=== PATIENT | female | born 1935 | race Caucasian/White ===

== ENCOUNTER → 2018-01-26 15:26 | Outpatient (CLI) | payer MEDICARE, SELFPAY | PROVIDERS: Visit Provider Physician Assistant Surgical | DX: J02.9 Acute pharyngitis, unspecified (principal) | CPT/HCPCS: 87081 ==

== ENCOUNTER → 2018-02-09 16:49 | Outpatient (CLI) | payer MEDICARE, SELFPAY ==
[2018-02-09 17:40] LABS: Bacteria 0 SEEN /hpf (None Seen); Mucous, Urine 0 SEEN /hpf (<or=2+); Red Blood Cells-Urine 0 SEEN /hpf (0-5); Squamous Epithelial Cells - UA 0 SEEN /hpf (5-10)
[2018-02-09 19:09] LABS: Color, Urine Yellow (Yellow); Glucose, Dipstick NEGATIVE (Normal); Ketone-Dipstick Negative (Negative); Urine Bilirubin Dipstick 1 mg/dL (Negative); Urine Clarity Clear (Clear)
[2018-02-09 19:10] LABS: Leukocyte Esterase-Dipstick 25 /ul (Negative); Nitrite-Dipstick Positive (Negative); Occult Blood-Urine 10 /ul (Negative); Protein-Dipstick 15 mg/dl (Negative); Urine Urobilinogen 1 mg/dl (Normal); Urine pH 6.5 (5.0 - 8.0)
[2018-02-09 19:11] LABS: White Blood Cells 0-5 SEEN /hpf (0-5)
== END ==
PROVIDERS: Family Provider Nurse Practitioner; PCP Nurse Practitioner; Visit Provider Physician Assistant Surgical
DX: N39.0 Urinary tract infection, site not specified (principal)
CPT/HCPCS: 81001; 87086; 87088

== ENCOUNTER → 2018-03-31 15:18 | Outpatient (CLI) | payer MEDICARE, SELFPAY ==
[2018-03-31 16:08] LABS: Bacteria 0 SEEN /hpf (None Seen); Mucous, Urine 0 SEEN /hpf (<or=2+)
[2018-03-31 16:28] LABS: Color, Urine Yellow (Yellow); Glucose, Dipstick Normal (Normal); Ketone-Dipstick Negative (Negative); Leukocyte Esterase-Dipstick 25 /ul (Negative); Nitrite-Dipstick Negative (Negative); Occult Blood-Urine Negative /ul (Negative); Protein-Dipstick Negative (Negative); Specific Gravity, Urine 1.005 (1.002-1.030); Urine Bilirubin Dipstick Negative (Negative); Urine Clarity Clear (Clear); Urine Urobilinogen Normal (Normal)
[2018-03-31 16:52] LABS: Squamous Epithelial Cells - UA 0-5 SEEN /hpf (5-10)
[2018-03-31 16:53] LABS: Transitional Epithelial - Ur 0-5 SEEN /hpf (0-5)
[2018-03-31 16:54] LABS: Red Blood Cells-Urine 0-5 SEEN /hpf (0-5)
[2018-03-31 16:55] LABS: White Blood Cells 0-5 SEEN /hpf (0-5)
== END ==
PROVIDERS: Family Provider Nurse Practitioner; PCP Nurse Practitioner; Visit Provider Physician Assistant Medical
DX: R35.0 Frequency of micturition (principal)
CPT/HCPCS: 81001; 87086; 87088

== ENCOUNTER → 2018-09-11 12:08 | Outpatient (CLI) | payer MEDICARE, SELFPAY ==
--- NOTE | 2018-09-11 12:14 | BD_ITS ---
STUDY: DUAL ENERGY X-RAY ABSORPTIOMETRY / DXA REASON FOR EXAM: Female, 82 years old. The patient is postmenopausal. Loss of height. TECHNIQUE: Bone Mineral Density (BMD) measurements of lumbar spine and bilateral hips were obtained. COMPARISON: Comparison is made with prior study dated September 06, 2016. FINDINGS: Lumbar Spine (L1-L4): g/cm2 (1.110) / T-score (-0.5) / Z-score (1.4) Findings are suggestive of with a low fracture risk. Left Femur Total: g/cm2 (0.948) / T-score (-0.5) / Z-score (1.7) Left Femoral Neck: g/cm2 (0.877) / T-score (-1.2) / Z-score (1.1) Right Femur Total: g/cm2 (0.915) / T-score (-0.7) / Z-score (1.4) Right Femoral Neck: g/cm2 (0.860) / T-score (-1.3) / Z-score (0.9) The T-Scores on the most recent prior examination were: Lumbar Spine (L1-L4): There has been worsening of bone density since the previous examination. Left Femur Total: which represents a worsening of 2.7%. Right Femur Total: which represents a worsening of 6.3%. BD/Dexa Bone Density Study IMPRESSION: The patient is considered osteopenic as outlined below according to World [employer] Organization (WHO) criteria with a moderate fracture risk. There has been worsening of bone density since the previous examination. Reference Information: The T-score is the number of standard deviations above or below the standard which is normal for young adults at their peak bone mineral density. The World Health Organization (WHO) interprets the T-scores as follows: Above -1 Normal bone density Between -1 and -2.5 Osteopenia Equal to / or below -2.5 Osteoporosis As a practical clinical guideline, osteopenia may be graded as follows: Mild -1 through -1.5 Moderate -1.6 through -2.0 Severe -2.1 through -2.4 The Z-score is the number of standard deviations above or below age-matched controls. A Z-score of less than -1.5 would be considered abnormal. References: 1. NIH Osteoporosis and Related Bone Diseases http://www.osteo.org 2. International Society for Clinical Densitometry http://www.iscd.org 3. National Osteoporosis Foundation http://www.nof.org Electronically Signed: Rogelio Joseph MD at 15:42 EST Tel [phone], Service support ,
--- OUTSIDE RECORDS SUMMARY | 2018-10-28 14:02 | XMS RPT_ITS | Continuity of Care Document ---
:1935 Author Organization [facility] Address [address] [facility] [address] [place] [address] Phone Care Team Providers Name Role Phone Nguyen Santana CNP Unavailable Karey Beckman Unavailable Dr. Ren Benavides Unavailable Dayna Byrne Unavailable Ced Rodrigues MD Unavailable Nusrat ALEXANDRE, Romel Spencer Unavailable Dr. Jerry Xie Unavailable Sonia Byrd Unavailable Edouard , Home [facility] Unavailable Jose Alejandro Gonzalez MD Unavailable Deisy Mitchell Unavailable Unavailable Renetta Gamboa Unavailable Unavailable Jo Gaitan LPN Unavailable Unavailable Shelby Padilla Unavailable Unavailable Zoraida Stewart Unavailable Unavailable Unavailable Unavailable Problems Name Dates Details Allergic rhinitis (J30.9, 477.9) Status: Active Anxiety (F41.9, 300.00) Comments: Generic for zoloft Sertraline. Will encourage exercise Status: Active Aortic atherosclerosis (I70.0, 440.0) Comments: on ASA 81 daily Status: Active BMI 27.0-27.9,adult (Z68.27, V85.23) Status: Active BMI 28.0-28.9,adult (Z68.28, V85.24) Status: Active BMI 28.0-28.9,adult (Z68.28, V85.24) Status: Active BMI 28.0-28.9,adult (Z68.28, V85.24) Status: Active Bradycardia (R00.1, 427.89) Comments: remains Betablocker Status: Active Cough (R05, 786.2) Status: Active Current nonsmoker (Renamed from Current non-smoker) (Z78.9, V49.89) Status: Active Deliveries (Parity) Comments: 2 Status: Active Diarrhea (R19.7, 787.91) Status: Active Encounter for Medicare annual wellness exam (Z00.00, V70.0) Status: Active Encounter for screening mammogram for breast cancer (Renamed from Encounter for screening mammogram for malignant neoplasm of breast) (Z12.31, V76.12) Status: Active Epigastric discomfort (R10.13, 789.06) Comments: uses famotidine prn Status: Active Fatty liver (K76.0, 571.8) Status: Active History of colon polyps (Z86.010, V12.72) Comments: scope 08-14 Status: Active Hot flashes (R23.2, 782.62) Comments: on premarin cream for dryness Status: Active Hypercholesterolemia (E78.00, 272.0) Comments: on colestipol lipid borderline Status: Active Hypertension (I10, 401.9) Comments: Sees Nusrat in September or October, occas PACs-no new changes on EKG, stable on losartan, hctz, and norvasc Status: Active IBS (irritable bowel syndrome) (K58.9, 564.1) Comments: stable, with diarrhea with abd cramping after a meal although not always,tried hyoscyamine with some improvement but also stopped dairy but still uses immodium daily, tried creon with no benefit, tri ed Xifaxan-too expensive.stop colesid not working Status: Active Internal hemorrhoid (K64.8, 455.0) Comments: from colonoscopy from [facility] 08-26-13 Status: Active Keratosis, 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, 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) Comments: face and rt leg Status: Active Knee pain, right (M25.561, 719.46) Comments: to ER on 06-06 with knee pain found to have meniscal tear Status: Active Left foot pain (M79.672, 729.5) Comments: observe for now Status: Active Liver cyst (K76.89, 573.8) Comments: repeat US Jun 2017 Status: Active Mitral valve regurgitation (I34.0, 424.0) Comments: echo 07-12, uses amoxicillin for mitral valve for dental procedures Status: Active Need for prophylactic vaccination and inoculation against influenza (Renamed from Need for immunization against influenza) (Z23, V04.81) Status: Active Need for prophylactic vaccination and inoculation against influenza (Renamed from Need for immunization against influenza) (Z23, V04.81) Status: Active Need for prophylactic vaccination and inoculation against influenza (Renamed from Need for immunization against influenza) (Z23, V04.81) Status: Active Need for zoster vaccination (Z23, V04.89) Comments: script given to get Shingrex vaccine, not given here Status: Active Nonsmoker (Z78.9, V49.89) Status: Active Osteoarthritis (M19.90, 715.90) Comments: stable Status: Active Osteoporosis (M81.0, 733.00) Comments: bd 1114 right now mild osteopenia. weight bearing exercises. on calcium with vit d. Status: Active Pain, joint, shoulder region, right (M25.511, 719.41) Comments: pt has done nsaids, exercises, injections and PT and still alot pain and never back to where should be. MRI done and went to [facility]. mobic bother stomach so using tylenol take edge off. Status: Active Postmenopausal (Renamed from Postmenopausal status) (Z78.0, V49.81) Status: Active Pregnancies () Comments: 2 Status: Active Prophylactic antibiotic for dental procedure indicated due to prior joint replacement (Z79.2, V58.62) Status: Active Right flank pain (R10.9, 789.09) Comments: ? 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 wheezing is better. echo, stress tests - 11, repeating per [employer] stress test on March 24 Status: Active Sore throat (J02.9, 462) Status: Active Stress incontinence, female (N39.3, 625.6) Comments: kegels, mild not bad enough to do anything Status: Active Tendinitis of left shoulder (M75.82, 726.10) Status: Active Unspecified abnormal involuntary movements (R25.9, 781.0) Comments: saw jose g orozco breathing issue. side effects to meds Status: Active Unspecified Diagnosis Status: Active Urinary incontinence (R32, 788.30) Comments: interested in Kiki piña given-is going to wait until her IBS is under control. Status: Active Vaginal atrophy (N95.2, 627.3) Comments: premarin cream prn Status: Active Medications Name Dates Details ADVAIR HFA, 115-21MCG/ACT (Inhalation Aerosol) Active 2 puffs bid (115-21 MCG/ACT) ASPIRIN ADULT LOW DOSE, 81MG (Oral Tablet Delayed Release) 1 (one) Tablet DR daily for 30 days Refills: 0 Ordered:14-Mar-2016 Nguyen Santana CNP, CNP, Mary E Start : 14-Mar-2016 Active ASTELIN, 137MCG/SPRAY (Nasal Solution) 1-2 sprays each nostril qd (137 MCG/SPRAY) Active CALCIUM + D, [id number]-FBSA (Oral Tablet) 1 qd for 0 days Refills: 0 Ordered:24-Jun-2009 Angelique Miller CENTRUM SILVER (Oral Tablet) 1 qd for 0 days Refills: 0 Ordered:24-Jun-2009 Angelique Miller HydroCHLOROthiazide 25 MG Oral Tablet 1 (one) Tablet QD for 0 days Quantity: 30 {Tablet} Refills: 7 Ordered:15-Sep-2017 Nguyen Santana CNP, CNP, Mary E Start : 15-Sep-2017 Active Losartan Potassium 50 MG Oral Tablet 1 (one) Tablet daily for 0 days Quantity: 30 {Tablet} Refills: 11 Ordered:11-Jun-2018 Max GIVENS, Nguyen Dover CNP Start : 11-Jun-2018 Active Norvasc 2.5 MG Oral Tablet 1 Tablet daily for 0 days Quantity: 30 {Tablet} Refills: 3 Ordered:02-May-2018 Max GIVENS, Nguyen Najera CNP, Nguyen Briones Start : 02-May-2018 Active Premarin 0.625 MG/GM Vaginal Cream uad Cream twice a week for 0 days Quantity: 1 {Tube} Refills: 6 Ordered:23-Aug-2016 Max GIVENS, Nguyen Najera CNP, Nguyen Briones Start : 23-Aug-2016 Active Propranolol HCl 40 MG Oral Tablet 1 (one) Milligram Milligram bid for 0 days Quantity: 60 {Milligram} Refills: 3 Ordered:02-Jul-2018 Deisy Mitchell Start : 11-Jun-2018 Active Zoloft 100 MG Oral Tablet 1 (one) Tablet qd for 0 days Quantity: 30 {Tablet} Refills: 6 Ordered:02-May-2018 Max GIVENS, Nguyen Najera CNP, Nguyen Briones Start : 02-May-2018 Active ALIGN, 4MG (Oral Capsule) 1 Capsule qd for 0 days Quantity: 30 {Capsule} Refills: 0 Ordered:28-Feb-2012 PAM Sanz Start : 17-Jan-2012 End : 28-Feb-2012 Inactive Amoxicillin 500 MG Oral Tablet uad Tablet Tablet 2 grams one hour prior to procedure for 0 days Quantity: 4 {Tablet} Refills: 0 Ordered:08-Mar-2017 Shelby Padilla Start : 29-Sep-2015 End : 08-Mar-2017 Inactive Amoxicillin-Pot Clavulanate 875-125 MG Oral Tablet 1 (one) Tablet PO BID for 14 days Quantity: 28 {Tablet} Refills: 0 Ordered:09-Nov-2017 Zoraida Stewart Start : 09-Nov-2017 End : 23-Nov-2017 Inactive Comments:Take with food ASPIRIN, 81MG (Oral Tablet) 1 QD for 0 days Refills: 0 Ordered:05-May-2010 Yesica Sanchez LPNactive ASTELIN, 137MCG/SPRAY (Nasal Solution) 2 sprays each nostril qd (137 MCG/SPRAY) Inactive ATIVAN, 0.5MG (Oral Tablet) 1 (one) Tablet Tablet daily prn up to three times a week for 0 days Quantity: 20 {Tablet} Refills: 0 Ordered:15-Sep-2015 Shelby Padilla Start : 14-Jan-2014 End : 15-Sep-2015 Inactive Comments:twenty AUGMENTIN, 875-125MG (Oral Tablet) 1 Tablet bid for 10 days Quantity: 20 {Tablet} Refills: 0 Ordered:09-Dec-2010 Taryn De Guzman RN Start : 09-Dec-2010 End : 19-Dec-2010 Inactive BIAXIN XL PAC, 500MG (Oral Tablet Extended Release 24 Hour) 2 (two) Tablet ER 24HR daily for 14 days Quantity: 28 {Tablet_ER_24HR} Refills: 0 Ordered:10-Jan-2012 Gin Sanchez LPN Start : 28-Dec-2011 End : 10-Jan-2012 Inactive BIAXIN XL, 500MG (Oral Tablet Extended Release 24 Hour) 2 (two) Tablet ER 24HR qd for 0 days Quantity: 20 {Tablet_ER_24HR} Refills: 0 Ordered:05-May-2010 Gin Sanchez LPN Start : 22-Mar-2010 Inactive CHERATUSSIN AC, 100-10MG/5ML (Oral Solution) 1 (one) Teaspoon Teaspoon qhs for 0 days Quantity: 6 {Ounce} Refills: 0 Ordered:19-Mar-2015 PAM Sanz Start : 01-Sep-2014 End : 19-Mar-2015 Inactive Cipro 500 MG Oral Tablet 1 (one) Tablet bid for 3 days Quantity: 6 {Tablet} Refills: 0 Ordered:08-Nov-2016 Nguyen Santana CNP, CNP, Mary E Start : 08-Nov-2016 End : 11-Nov-2016 Inactive CLARITIN REDITABS, 5MG (Oral Tablet Dispersible) 1 Tablet Disperse daily for 0 days Quantity: 30 {Tablet_Disperse} Refills: 0 Ordered:17-Jan-2012 PAM Sanz Start : 26-Dec-2011 End : 17-Jan-2012 Inactive Colestipol HCl 1 GM Oral Tablet 1 (one) Tablet Tablet bid for 0 days Quantity: 60 {Tablet} Refills: 3 Ordered:11-Jun-2018 Max GIVENS, Nguyen Najera CNP, Nguyen Briones Start : 15-Sep-2017 End : 11-Jun-2018 Inactive FOSAMAX, 70MG (Oral Tablet) 1 Tablet weekly for 0 days Quantity: 4 {Tablet} Refills: 6 Ordered:23-Jun-2011 PAM Sanz Start : 15-Dec-2010 End : 23-Jun-2011 Inactive GENTAMICIN SULFATE, 0.3% (Ophthalmic Solution) 2 (two) Solution each eye qid for 7 days for 0 days Quantity: 1 {Solution} Refills: 0 Ordered:23-Jun-2011 PAM Sanz Start : 03-Mar-2011 End : 23-Jun-2011 Inactive Hyoscyamine Sulfate 0.125 MG Oral Tablet 1 (one) Tablet Tablet q4hrs prn for 0 days Quantity: 30 {Tablet} Refills: 0 Ordered:11-Jun-2018 Max GIVENS, Nguyen Dover CNP Start : 11-Jun-2018 End : 11-Jun-2018 Inactive INDERAL LA, 60MG (Oral Capsule Extended Release 24 Hour) 1 Capsule ER 24HR daily for tremor for 0 days Quantity: 30 {Capsule_ER_24HR} Refills: 1 Ordered:31-Aug-2010 PAM Sanz Start : 29-Jul-2010 End : 31-Aug-2010 Inactive INDERAL, 10MG (Oral Tablet) 1 or 2 q 8 hours prn (10 MG) Inactive Comments:Dr. Vides LAMISIL, 250MG (Oral Tablet) Tablet QD for 0 days Quantity: 34 {Tablet} Refills: 2 Ordered:01-Jan-2010 PAM Sanz Start : 09-Dec-2008 Inactive Comments:12 weeks only LEVAQUIN, 500MG (Oral Tablet) 1 Tablet daily for 7 days Quantity: 7 {Tablet} Refills: 0 Ordered:03-Jan-2012 Max GIVENS, Nguyen Najera CNP, Nguyen Briones Start : 03-Jan-2012 End : 10-Jan-2012 Inactive LEVOFLOXACIN, 500MG (Oral Tablet) 1 (one) Tablet daily for 7 days Quantity: 7 {Tablet} Refills: 0 Ordered:01-Sep-2014 Max GIVENS, Nguyen Najera CNP, Nguyen Briones Start : 01-Sep-2014 End : 08-Sep-2014 Inactive LORATADINE, 10MG (Oral Tablet) 1 prn for 0 days Refills: 0 Ordered:29-May-2008 PAM Sanz End : 29-May-2008 Inactive Macrobid 100 MG Oral Capsule 1 (one) Capsule bid for 7 days Quantity: 14 {Capsule} Refills: 0 Ordered:08-Nov-2016 Max GIVENS, Nguyen Dover CNP Start : 08-Nov-2016 End : 08-Nov-2016 Inactive Comments:[facility] Meloxicam 7.5 MG Oral Tablet 1 (one) Tablet daily as directed for 0 days Quantity: 30 {Tablet} Refills: 0 Ordered:19-Dec-2017 Long CREPING MACHINE OPERATOR, Ariana L Start : 15-Sep-2017 End : 19-Dec-2017 Inactive PATANOL, 0.1% (Ophthalmic Solution) 1 Solution each eye bid. for 0 days Quantity: 1 {Solution} Refills: 0 Ordered:23-Jun-2011 PAM Sanz Start : 10-Mar-2011 End : 23-Jun-2011 Inactive PENICILLIN V POTASSIUM, 250MG (Oral Tablet) 1 (one) Tablet tID for 10 days Quantity: 30 {Tablet} Refills: 0 Ordered:07-Apr-2008 Max GIVENS, Nguyen Dover CNP Start : 07-Apr-2008 End : 21-Apr-2008 Inactive PRAVACHOL, 40MG (Oral Tablet) 1 Tablet daily for 0 days Quantity: 90 {Tablet} Refills: 3 Ordered:07-Mar-2013 Shelby Padilla Start : 29-May-2012 End : 07-Mar-2013 Inactive PREDNISONE, 10MG (Oral Tablet) 3 pills Tablet for 3 days 2 for 3 days 1 for 3 days with food for 0 days Quantity: 18 {Tablet} Refills: 0 Ordered:19-Mar-2015 PAM Sanz Start : 01-Sep-2014 End : 19-Mar-2015 Inactive Comments:with food PREMARIN, 0.3MG (Oral Tablet) 1 Tablet QD for 0 days Refills: 0 Ordered:07-Jan-2009 PAM Sanz Start : 07-Jan-2009 End : 29-Apr-2008 Inactive Proventil HFA 108 (90 Base) MCG/ACT Inhalation Aerosol Solution 1 Aerosol Soln 1-2 puffs every 6 hours prn for 0 days Quantity: 1 {Aerosol_Soln} Refills: 3 Ordered:19-Dec-2017 Sandoval ALBA Ariana L Start : 23-Aug-2016 End : 19-Dec-2017 Inactive RHINOCORT AQUA, 32MCG/ACT (Nasal Suspension) 2sprays each nostril Suspension QD for 0 days Quantity: 1 {Suspension} Refills: 3 Ordered:28-Feb-2012 PAM Sanz Start : 17-Jun-2010 End : 28-Feb-2012 Inactive SYMBICORT, 160-4.5MCG/ACT (Inhalation Aerosol) 1 puff Aerosol bid for 0 days Quantity: 1 {Aerosol} Refills: 6 Ordered:28-Feb-2012 PAM Sanz Start : 26-Dec-2011 End : 28-Feb-2012 Inactive TESSALON PERLES, 100MG (Oral Capsule) 1 Capsule bid prn cough for 0 days Quantity: 30 {Capsule} Refills: 1 Ordered:19-Mar-2015 PAM Sanz Start : 01-Sep-2014 End : 19-Mar-2015 Inactive TOPICORT, 0.25% (External Cream) 1 Cream bid for 0 days Quantity: 1 {Cream} Refills: 0 Ordered:06-Dec-2010 PAM Sanz Start : 05-May-2010 End : 06-Dec-2010 Inactive Xifaxan 550 MG Oral Tablet 1 (one) Tablet tid for 7 days Quantity: 21 {Tablet} Refills: 0 Ordered:12-Jul-2018 Max GIVENS, Nguyen Najera CNP, Mary Start : 12-Jul-2018 End : 19-Jul-2018 Inactive XYZAL, 5MG (Oral Tablet) Tablet QD for 0 days Quantity: 30 {Tablet} Refills: 0 Ordered:29-Apr-2008 PAM Sanz Start : 29-Apr-2008 End : 29-May-2008 Inactive Zithromax Z-Fransisco 250 MG Oral Tablet 1 (one) Tablet TAD for 0 days Quantity: 1 {Package} Refills: 0 Ordered:19-Dec-2017 Long Ariana ALBA Start : 10-Nov-2017 End : 19-Dec-2017 Inactive ZOSTAVAX, 70574ACM/0.65ML (Subcutaneous Solution Reconstituted) 1 For Solution once IM for 0 days Quantity: 1 {For_Solution} Refills: 0 Ordered:31-Aug-2010 PAM Sanz Start : 17-Jun-2010 End : 31-Aug-2010 Inactive GREGORY, 60MG (Oral Tablet) Tablet BID for 0 days Quantity: 60 {Tablet} Refills: 3 Ordered:29-May-2007 PAM Sanz Start : 29-May-2007 End : 29-Nov-2007 Discontinued AMITRIPTYLINE HCL, 25MG (Oral Tablet) Tablet QHS / HS for 0 days Quantity: 30 {Tablet} Refills: 6 Ordered:09-Dec-2008 George Bueno MD Start : 09-Dec-2008 End : 23-Jun-2009 Discontinued CELEXA, 20MG (Oral Tablet) 1 (one) Tablet qd for 0 days Quantity: 30 {Tablet} Refills: 6 Ordered:15-Sep-2015 Geogre Bueno MD Start : 15-Sep-2015 End : 15-Sep-2015 Discontinued Creon 09818 UNIT Oral Capsule Delayed Release Particles 2 (two) Unit Unit with each meal for 0 days Quantity: 36 {Tablet} Refills: 0 Ordered:30-Jul-2018 Deisy Mitchell Start : 02-Jul-2018 End : 30-Jul-2018 Discontinued Comments:samples given Culturelle End : 08-Nov-2016 Discontinued Culturelle Dig[facility] Oral Capsule 1 (one) Capsule Capsule daily for 0 days Quantity: 30 {Capsule} Refills: 0 Ordered:05-Jul-2017 Renetta Gamboa Start : 23-Aug-2016 End : 05-Jul-2017 Discontinued DIOVAN, 160MG (Oral Tablet) 1 Tablet qd for 0 days Quantity: 30 {Tablet} Refills: 6 Ordered:15-Dec-2010 George Bueno MD Start : 15-Dec-2010 End : 15-Dec-2010 Discontinued FOLIC ACID, 400MCG (Oral Tablet) 1 QD for 0 days Refills: 0 Ordered:29-Jan-2007 PAM Sanz End : 29-Jan-2007 Discontinued FUROSEMIDE, 20MG (Oral Tablet) 1 Tablet QD for 0 days Refills: 0 Ordered:29-Jan-2007 George Bueno MD Start : 29-Jan-2007 End : 29-Jan-2007 Discontinued Hyoscyamine Sulfate ER 0.375 MG Oral Tablet Extended Release 12 Hour 1 (one) Tablet Tablet q12hrs prn for IBS and Gi spasms for 0 days Quantity: 60 {Tablet} Refills: 0 Ordered:30-Jul-2018 Deisy Mitchell Start : 11-Jun-2018 End : 30-Jul-2018 Discontinued LISINOPRIL, 20MG (Oral Tablet) 1 Tablet QD for 30 days Quantity: 30 {Tablet} Refills: 6 Ordered:27-May-2010 George Bueno MD Start : 27-May-2010 End : 27-May-2010 Discontinued LISINOPRIL-HCTZ (PO Tab) 20/25 QD for 0 days Refills: 0 Ordered:28-Jun-2006 Taryn De Guzman RN End : 28-Jun-2006 Discontinued MELOXICAM, 7.5MG (Oral Tablet) qd (7.5 MG) End : 14-Mar-2016 Discontinued MOBIC, 7.5MG (Oral Tablet) 1 (one) Tablet Tablet daily for 0 days Quantity: 30 {Tablet} Refills: 2 Ordered:14-Mar-2016 Jo Gaitan LPN Start : 16-Jun-2015 End : 14-Mar-2016 Discontinued PREDNISONE, 20MG (Oral Tablet) 1 Tablet daily for 0 days Quantity: 7 {Tablet} Refills: 0 Ordered:15-Dec-2010 Taryn De Guzman RN Start : 15-Dec-2010 End : 15-Dec-2010 Discontinued PROPRANOLOL HCL, 20MG (Oral Tablet) 1 Tablet tid for 0 days Quantity: 90 {Tablet} Refills: 6 Ordered:28-Feb-2012 George Bueno MD Start : 28-Feb-2012 End : 28-Feb-2012 Discontinued ZETIA, 10MG (Oral Tablet) 1 Tablet Tablet daily for 0 days Quantity: 30 {Tablet} Refills: 6 Ordered:14-Mar-2016 Jo Gaitan LPN Start : 06-Sep-2013 End : 14-Mar-2016 Discontinued ZYRTEC, 10MG (Oral Tablet) 1 Tablet qd for 0 days Quantity: 30 {Tablet} Refills: 6 Ordered:29-Jan-2007 PAM Sanz Start : 29-Jan-2007 End : 29-Nov-2007 Discontinued Allergies and Adverse Reactions Name Dates Details Sulfa Drugs (Allergy) Status: Active Past Medical History Name Dates Details Abdominal bloating (R14.0, 787.3) Status: Inactive as of 19-Dec-2017 Abnormal EKG (R94.31, 794.31) Comments: reveiwed with patient recent tests stress and echo good Status: Inactive as of 29-May-2012 Acute sinusitis, unspecified (J01.90, 461.9) 04-Feb-2010 Comments: if antihistamine not work get atb Status: Inactive as of 18-Feb-2010 Asthma, intrinsic, mild intermittent, with status asthmaticus (J45.22, 493.11) Comments: stable now use advair just in am most time and still good. uses daily occasional sob Status: Inactive as of 19-Dec-2017 BMI 28.0-28.9,adult (Z68.28, V85.24) Status: Inactive as of 19-Dec-2017 BMI 29.0-29.9,adult (Z68.29, V85.25) Status: Inactive as of 14-Jun-2017 Bronchitis (J40, 490) Status: Inactive as of 06-Sep-2013 Bursitis of hip, unspecified laterality (726.5) Comments: stable Status: Inactive as of 29-May-2012 Chest pain (R07.9, 786.59) 29-May-2012 Comments: atypical. had for awhile had echostress 06-09 Status: Inactive as of 29-May-2012 Chronic cough (R05, 786.2) Comments: better see Dr. rodrigues Status: Inactive as of 19-Mar-2015 Decreased lung sounds (R06.89, 786.7) Status: Inactive as of 19-Dec-2017 Dizziness (R42, 780.4) Comments: in past had and with atherosclerosis on cxr check carotids Status: Inactive as of 06-Sep-2013 Dysuria (R30.0, 788.1) 17-Jun-2010 Status: Inactive as of 06-Sep-2013 Fever and chills (R50.9, 780.60) Status: Inactive as of 19-Mar-2015 Flu-like symptoms (R68.89, 780.99) Status: Inactive as of 19-Dec-2017 FOCAL HYPERHIDROSIS, PRIMARY (705.21) Comments: stable Status: Inactive as of 29-May-2012 Headache (R51, 784.0) Status: Inactive as of 29-May-2012 Hypokalemia (E87.6, 276.8) Status: Inactive as of 14-Jan-2014 Joint inflammation (716.90) Comments: injection in past help like one today .right shoulder Status: Inactive as of 19-Mar-2015 Low back pain (M54.5, 724.2) 29-May-2012 Status: Inactive as of 29-May-2012 NEED FOR PROPHYLACTIC VACCINATION AND INOCULATION AGAINST INFLUENZA (V04.81) (Renamed from NEED FOR PROPHYLACTIC VACCINATION AND INOCULATION AGAINST INFLUENZA) (Z23, V04.81) Status: Inactive as of 19-Mar-2015 oncomycosis Status: Inactive as of 23-Jun-2009 Osteopenia (M85.80, 733.90) Status: Inactive as of 29-May-2012 Other ankle sprain (845.09) 29-May-2012 Status: Inactive as of 29-May-2012 Other premature beats (I49.49, 427.69) Comments: some bradycardia. stress and echo good saw Dr. [facility]io. [facility] Status: Inactive as of 19-Mar-2015 Other specified pruritic conditions (L29.8, 698.8) Comments: not now Status: Resolved as of 29-May-2012 Pharyngitis, acute (J02.9, 462) 22-Mar-2010 Comments: think above Status: Inactive as of 27-May-2010 Proteinuria (R80.9, 791.0) Comments: 24 hour good Status: Inactive as of 07-Jul-2011 Rash (R21, 782.1) Status: Inactive as of 27-May-2010 Sciatica (M54.30, 724.3) 29-May-2012 Status: Inactive as of 29-May-2012 Serous conjunctivitis, unspecified laterality (H10.239, 372.01) Comments: will now try patanol for allergies. saline rinses and cold compresses help Status: Inactive as of 06-Sep-2013 Sleep disorder (G47.9, 780.50) Comments: desolving relationship ome upset Status: Inactive as of 06-Sep-2013 Unspecified asthma with (acute) exacerbation (J45.901, 493.92) Comments: better now with inpatient IV atb. pt will be seeing Dr. rodrigues. if not get back to self then consider ct scan. formal PFTS will work with Dr. rodrigues to startreveiwed with patient hospital Status: Inactive as of 19-Mar-2015 Unspecified Diagnosis Status: Inactive as of 06-Sep-2013 Unspecified Diagnosis Status: Inactive as of 19-Mar-2015 Urinary retention (R33.9, 788.20) Status: Inactive as of 29-May-2012 Urinary tract infection (N39.0, 599.0) Status: Resolved as of 29-May-2012 UTI symptoms (R39.9, 788.99) Status: Inactive as of 18-Jul-2017 Viral syndrome (B34.9, 079.99) Status: Inactive as of 06-Sep-2013 Wheezing symptom (R06.2, 786.07) Status: Inactive as of 06-Sep-2013 WWV V73.21 (Renamed from WWV-Bare) Comments: mammo 03-13 Status: Inactive as of 06-Sep-2013 Procedures Procedure Dates Details Bladder Repair 1994 Completed cataracts -- Left eye April 14 Completed Comments: [place] and then right eye done appx 05/29/14 Cholecystectomy (Gall Bladder Removal) Completed Comments: 1995 Colonoscopy Completed Comments: August 2013 Dr. Hernandez Hysterectomy, Total Completed Comments: 1971 Date Value Details 31-Mar-2018 Urgent Care Visit Report Result: Comments: See Note; NOTES: [facility] [address] [place] [address] OFFICE VISIT Date of Service: 03/31/18 MR#: [id number] Acct: [id number] Name: GAYATRI NAQVI Rep #: [id number] : 1935 Provider: RHODA Cisse Age/Sex: 82/F Location: [facility] Status: Signed Intake Vital Signs03/31/18 Height 5 ft 03/31/18 Weight: 140 lb 03/31/18 Body Mass Index (BMI) 27.3 03/31/18 Blood Pressure 120/74 Intake Visit Reasons: Urinary tract infection Chief Complaint: burning with urination Allergies Sulfa (Sulfonamide Antibiotics) Allergy (Verified 03/31/18 08:20) U nknown pravastatin [From Pravachol] Adverse Reaction (Severe, Verified 03/31/18 08:20) myalgias morphine Adverse Reaction (Verified 03/31/18 08:20) Nausea/Vom/Diarrhea Medications Amlodipine [Norvasc ] 2.5 mg PO DAILY 03/04/16 [History Confirmed 03/31/18] Aspirin [Aspirin, Baby] 81 mg PO DAILY@0800 03/04/16 [History Confirmed 03/31/18] Estrogens, Conjugated [Premarin] 0.625 mg PO PRN PRN 03/04/16 [H istory Confirmed 03/31/18] Fluticasone/Salmeterol [Advair Hfa 115-21 Mcg Inhaler] 2 puff INHALATION BID 03/04/16 [History Confirmed 03/31/18] Hydrochlorothiazide [Hctz] 25 mg PO DAILY 03/04/16 [History Confirmed 03/31/18] Losartan Potassium [Cozaar] 100 mg PO DAILY 03/04/16 [History Confirmed 03/31/18] Sertraline HCl [Zoloft] 100 mg PO DAILY 03/04/16 [History Confirmed 03/31/18] azelastine 137 mcg (0. 1 %) nasal spray aerosol INTRANASAL 25 Days #30 01/26/18 [History Confirmed 03/31/18] albuterol sulfate HFA 90 mcg/actuation aerosol inhaler 2 puff INHALATION Q6H PRN 02/20/18 [History Confirmed 8] calcium carbonate-vitamin D3 600 mg (1,500 mg)-800 unit tablet 1 tab PO QDAY 02/20/18 [History Confirmed 03/31/18] multivit with min-folic acid-lutein 400 mcg-250 mcg chewable tablet 1 tab PO QDAY ta b 02/20/18 [History Confirmed 03/31/18] colestipol 1 gram tablet 1 g PO BID tab 02/28/18 [History Confirmed 03/31/18] nitrofurantoin monohydrate/macrocrystals 100 mg capsule 100 mg PO Q12H 7 Days #14 ca p 03/31/18 [Rx Confirmed 03/31/18] PFSH Medical History Sinus bradycardia (Acute) Nonrheumatic mitral valve regurgitation (Chronic) Premature atrial cont ractions (Acute) Cystitis (Acute) Pharyngitis, acute (Acute) Hyperlipemia (Chronic) Benign hypertension (Chronic) Anxiety (Acute) Diarrhea (Acute) Essential tremor (Acute) Fatigue (Acute) Incontinence ( Acute) Knee pain (Acute) Limb weakness (Acute) SOB (shortness of breath) (Acute) Shoulder pain (Acute) Asthma (Chronic) IBS (irritable bowel syndrome) (Chronic) Osteoarthritis (Chronic) Osteoporosis (Ch ronic) Surgical History Hx of bladder repair surgery (Resolved) Hx of cholecystectomy (Resolved) Hx of hysterectomy (Resolved) Family History Father CAD (coronary artery disease) Hx of CABG Other Heart disease Hypertension Social History Smoking Status: Never smoker alcohol intake: current details: occa sional HPI HPI Chief Complaint: burning with urination Details: GAYATRI NAQVI, is a 82 F who presents to the office today with 3 day history of urinary burning and frequency. She has not tried any O TC medications, but has increased her fluid intake. She has had UTI's before and knows this is the start of one. She does not feel she can wait another day to see her PCP. She has had Erythromycin and M acrobid in the past for this. She denies any fever, chills, or abdominal pain other than some mild cramping with uriination. No back pain. ROS Const Constitutional: No body ache, chills, fatigue, fever (s), night sweats, change in appetite, weakness, frequent falls, headache(s) or excessive sweating Eyes Eyes: No visual disturbances, light sensitivity, eye pain or change in vision ENT ENT: No ear pain , ear discharge, hearing loss, dizziness/vertigo, nasal discharge, difficulty swallowing, sore throat, neck pain or headache(s) Resp Respiratory: No cough, chest congestion, hemoptysis, shortness of kelly ath or wheezing Cardio Cardiology: Positive for other (H/o hypeertension in good control with 2 medications); no shortness of breath, irregular heart rhythm, lightheadedness, chest pain at rest, chest p ain with exertion, generalized swelling, orthopnea, palpitations or excessive sweating Gastro GI: Positive for abdominal pain (Minimal cramping with urination); no difficulty swallowing, bloating, magana e in bowel habits, diarrhea, blood in stool, Black,tarry stools, nausea/dyspepsia or vomiting Genitourinary-Female: Positive for burning urination, urinary frequency, urinary urgency, difficulty urin ating, suprapubic fullness and other (H/o UTI's); no blood in urine (none visible) or Vaginal Itching Musc Musculoskeletal: No joint pain, back pain, numbness, tingling or neck pain Skin Skin: No lesion s, itching or rash Neuro Neurology: No visual disturbances, numbness, tingling, abnormal speech, confusion, unsteady gait/balance, dizziness, weakness, frequent falls, loss of vision or headache(s) Psyc h Psychiatric: No change in appetite, No confusion, No anxiety, No depression Endo Endocrine: No fatigue, cold intolerance, excessive sweating, flushing, heat intolerance or increased thirst/drinking Al ler/Imm Allergy/Immunologic: No wheezing, itchy eyes, food intolerance, seasonal allergy symptoms or hives Babak/Lymp Hematologic/Lymphatic: No easy bruising Exam Const General: cooperative, no acute d istress Orientation: alert, oriented x3 HENMT Head: normal to inspection, normocephalic Ears: hearing grossly normal bilaterally, external ears normal Nose: nasal mucous membranes and turbinates normal, no nasal discharge Face and sinus: normal facial exam Teeth and gingiva: dentition normal, gingiva normal Eyes General: appearance normal, both eyes and all related structures Eyelids: eyelids normal C onjunctivae: conjunctivae normal Sclera: sclerae normal EOM: EOM intact bilaterally Neck Neck: normal visual inspection, supple Carotids: bruit Chest Chest palpation AND inspection: normal inspection of the chest Resp Effort AND Inspection: normal respiratory effort, no audible wheezes, no cough, not labored, no respiratory distress Auscultation: Bilateral: Clear to Auscultation Cardio Rate: regular r ate Rhythm: regular rhythm Heart Sounds: S1 normal, S2 normal GI Inspection: normal to inspection Auscultation: normal bowel sounds Palpation: soft, no hepatosplenomegaly, no pulsatile masses, tender (l ow mid abdomen) Skin General: no rashes or lesions noted Neuro General: alert, oriented x3, moves all extremities Speech: speech normal Extrem General: normal to inspection Psych Appearance: grossly nor mal, well kempt Mental Status: mental status grossly normal Affect: normal affect Speech and Movement: speech and movement normal Attitude: cooperative Thought Content: normal Judgment: judgment good Assessment AND Plan Problems 1. UTI (urinary tract infection), bacterial N39.0; A49.9 Plan Macrobid 100 mg bid X 7 days Urine sent for culture F/u with PCP after finished with antibiotics to recheck ur ine to verify completely cleared. F/u 3-5 days with PCP if symptoms not improving. To ER if fever, abdominal pain, or symptoms worsen. Medications New: nitrofurantoin monohyd/m-cryst 100 mg (Macrobid) [id number] mg PO Q12H 7 days UTI N39.0 ster with a meal/food; swallow whole; do not open, crush, dissolve , or chew Coding Level of Care Code Off vis,new,level 3 Diagnoses UTI (urinary tract infection ), bacterial N39.0; A49.9 03/31/18 0857 <Electronically signed by Melva DUONG> Date Melva DUONG Cosigner Signature : Date (if applicable) CC: 28-Feb-2018 Cardiology Visit Report Result: Comments: See Note; NOTES: [facility] [place] [address] OFFICE VISIT Date of Service: 02/28/18 MR#: [id number] Acct: [id number] Name: GAYATRI NAQVI Rep #: [id number] : 1935 Provider: Romel Silverio MD Age/Sex: 82/F Location[place] [facility] Status: Signed HPI HPI Details: GAYATRI NAQVI, is a 82 F who presents to the office today for outpatient card iovascular follow-up. Since her visit of approximately 1 year ago she states overall she has been doing well. She has not complained of ongoing palpitations, concerns or rapid rates, or concerns of symp tomatic low rates. There has been no issues of worsening shortness of breath or dyspnea. There has been no ongoing chest discomfort. She underwent noninvasive evaluation in 2017. This included a transt horacic echocardiogram and an exercise tolerance test/imaging study. The results are as noted below. She states she may need right knee surgery in the future. She is pending future orthopedic evaluatio n. Intake Vital Signs02/28/18 Height 5 ft 02/28/18 Weight: 144 lb 02/28/18 Body Mass Index (BMI) 28.1 02/28/18 Blood Pressure 124/62 Intake Visit Reasons: 1 Y FU Allergies Sulfa (Sulfonamide Antibi otics) Allergy (Verified 02/28/18 13:14) Unknown pravastatin [From Pravachol] Adverse Reaction (Severe, Verified 02/28/18 13:14) myalgias morphine Adverse Reaction (Verified 02/28/18 13:14) Nausea/Vom/D iarrhea Medications Amlodipine [Norvasc] 2.5 mg PO DAILY 03/04/16 [History Confirmed 02/28/18] Aspirin [Aspirin, Baby] 81 mg PO DAILY@0800 03/04/16 [History Confirmed 02/28/18] Estrogens, Conjugated [Premarin] 0.625 mg PO PRN PRN 03/04/16 [History Confirmed 02/28/18] Fluticasone/Salmeterol [Advair Hfa 115-21 Mcg Inhaler] 2 puff INHALATION BID 03/04/16 [History Confirmed 02/28/18] Hydrochlorothiazid e [Hctz] 25 mg PO DAILY 03/04/16 [History Confirmed 02/28/18] Losartan Potassium [Cozaar] 100 mg PO DAILY 03/04/16 [History Confirmed 02/28/18] Sertraline HCl [Zoloft] 100 mg PO DAILY 03/04/16 [History Confirmed 02/28/18] azelastine 137 mcg (0.1 %) nasal spray aerosol INTRANASAL 25 Days #30 01/26/18 [History Confirmed 02/28/18] albuterol sulfate HFA 90 mcg/actuation aerosol inhaler 2 puff INHALATION Q 6H PRN 02/20/18 [History Confirmed 02/28/18] calcium carbonate-vitamin D3 600 mg (1,500 mg)-800 unit tablet 1 tab PO QDAY 02/20/18 [History Confirmed 02/28/18] multivit with min-folic acid-lutein 400 mc g-250 mcg chewable tablet 1 tab PO QDAY tab 02/20/18 [History Confirmed 02/28/18] PFSH Medical History Sinus bradycardia (Acute) Nonrheumatic mitral v alve regurgitation (Chronic) Premature atrial contractions (Acute) Cystitis (Acute) Pharyngitis, acute (Acute) Hyperlipemia (Chronic) Benign hypertension (Chronic) Anxiety (Acute) Diarrhea (Acute) Essen tial tremor (Acute) Fatigue (Acute) Incontinence (Acute) Knee pain (Acute) Limb weakness (Acute) SOB (shortness of breath) (Acute) Shoulder pain (Acute) Asthma (Chronic) IBS (irritable bowel syndrome) ( Chronic) Osteoarthritis (Chronic) Osteoporosis (Chronic) Surgical History Hx of bladder repair surgery (Resolved) Hx of cholecystectomy (Resolved) Hx o f hysterectomy (Resolved) Family History Father CAD (coronary artery disease) Hx of CABG Other Heart disease Hypertension Social History Smoking Stat us: Never smoker alcohol intake: current details: occasional ROS Const Const: Negative for fatigue, weakness, weight gain, weight loss, frequent falls or excessive sweating Eyes Eyes: Negative fo r change in vision, blurry vision or transient loss of vision ENT ENT: Negative for dizziness or balance problems Cardio Chest Pain: No Edema: None, Left (slight ankle edema on occasion) Muscle aches wi th walking: None Resp Respiratory: Positive for SOB with activity (breathing at baaseline); negative for SOB at rest GI GI: Negative vomiting or vomiting blood/hematemesis : Negative for hematuria Musc Musc: Positive for muscle aches/ myalgia (torn meniscua and arthritis in rt knee) and joint pain (HX arthritis bilat shoulders); negative for balance problems or muscle weakness Skin Skin: Negative non-healing lesions or rash Neuro Neuro: Positive for other (benign essential tremors to bilat hands); negative for weakness, blurry vision, dizziness, lightheadedness, frequent falls or orthostatic sy mptoms Babak Hematologic/Lymphatic: Negative for easy bleeding Endo Endo: Negative for fatigue or excessive sweating Psych Psych: Negative for anxiety or depression Allergy Allergy/Immunology: Negative f or hives, Negative for rash Cardiology Exam Const Appearance: cooperative, healthy appearing, comfortable, no acute distress, well developed, well groomed and acute distress Nutritional Appearance: av erage body habitus Orientation: alert, awake and oriented x3 Head Head: normal to inspection, normocephalic and atraumatic Ears: hearing grossly normal bilaterally Nose: external nose normal Face and Si nus: face symmetric Mouth: oral mucosae normal Eyes Eyelids: eyelids normal Conjunctivae: conjunctivae normal Pupils: PERRL EOM: EOM intact bilaterally Neck Neck: normal visual inspection and full ROM C arotids: normal carotid upstroke Chest Chest inspection: normal inspection of the chest and symmetric chest movement Auscultation: Bilateral: Clear to Auscultation Cardio Palpation: normal PMI Rate: reg ular rate Rhythm: regular rhythm Heart sounds: S1 normal and S2 normal GI GI: normal to inspection, soft, no hepatosplenomegaly and bowel sounds present Neuro General: alert, awake, oriented x3 and move s all extremities Skin Skin: no rashes or lesions noted Extremities Pulses: Normal: Right Radial Pulse, Left Radial Pulse Lower Extremity Edema: None: Bilateral Musculoskel Musculoskeletal: joint tender ness (right knee) Psych Psychological: normal affect Supplemental Info She had a transthoracic echocardiogram performed on 03/27/2017. The results are as noted below. Interpretation Summary The study was technically difficult. Left ventricular systolic function is normal. The estimated ejection fraction is 60 %. The left atrium is mildly enlarged. Mild (1+) mitral valve insufficiency. Trivial tricu spid valve insufficiency. Trivial pericardial effusion. There are no echocardiographic indications of cardiac tamponade. Right ventricular systolic pressure estimated to be 23 mmHg. She had a stress nu clear imaging study performed on 03/24/2017. The results are as noted below. EXERCISE TOLERANCE TEST: The patient underwent exercise tolerance test on a James protocol for 3 minutes completing stage 1, achieving a peak heart rate of 133 beats per minute (95% predicted maximum heart rate) and a peak blood pressure 188/70 mmHg and a peak MET capacity of approximately 4-5 METs. The baseline ECG demonstr ated sinus bradycardia with poor R-wave progression. The peak exercise ECG demonstrated no obvious ECG changes. There was an isolated ventricular couplet at peak recovery and rare PVC during recovery. The functional capacity was considered decreased. The patient had no complaint of chest discomfort during exercise or recovery. The examination was discontinued secondary to dyspnea. IMPRESSION: 1. Technically adequate (percent predicted maximum heart rate greater than 85%), exercise tolerance test. 2. Peak exercise ECG with no obvious ECG changes. 3. Isolated ventricular couplet at peak recovery and rare premature ventricular contraction during recovery. 4. Nuclear images pending. MYOCARDIAL PERFUSION IMAGING STUDY: TECHNIQUE: The patient was injected with 11.2 mCi of Tc99m Cardiolite and sub sequently rest SPECT Cardiolite nuclear imaging was obtained in the horizontal long, vertical long and short axes views. The patient underwent exercise on a James protocol for 3 minutes completing stage 1, achieving a peak heart rate of 133 beats per minute (95% predicted maximum heart rate) and a peak blood pressure of 188/70 mmHg and a peak MET capacity of 4-5 METs. The patient was injected with 33. 7 mCi of Tc99m Cardiolite and subsequently stress SPECT Cardiolite nuclear imaging was obtained in the horizontal long, vertical long and short axes views. A gated Cardiolite study at peak stress was ob tained. INTERPRETATION: Rest and stress SPECT Cardiolite nuclear imaging status post realignment, normalization and attenuation correction, demonstrate areas of extracardiac/hepatic and gastrointestina l tracer uptake near the inferior segments. Otherwise, there appears to be relative uniform tracer uptake and myocardial perfusion appearing within normal limits. There is end systolic thickening and br ightening. The gated Cardiolite study demonstrates myocardial thickening and inward wall motion. The reported LVEF was 71%. IMPRESSION: 1. Rest and stress SPECT Cardiolite nuclear imaging appear to dem onstrate relative uniform tracer uptake and myocardial perfusion appearing within normal limits. 2. The gated Cardiolite study reports an LVEF of 71%. She had a Holter monitor performed on 01/08/2013. Th e results are as noted below. THIS IS A 24 HOUR HOLTER SCAN. SINUS RHYTHM. MINIMUM HEART RATE 47 BPM AT 5:27 AM. AVERAGE HEART RATE 70 BPM. MAXIMUM HEART RATE 118 BPM AT 10:51 AM. NO ACTIVITY RECORDED IN PT. DIARY AT THIS TIME. RARE PREMATURE ATRIAL COMPLEXES. TWO ATRIAL COUPLETS. NO RUNS. NO VENTRICULAR ECTOPY NOTED. NO SYMPTOMS RECORDED IN PT. DIARY. Assessment AND Plan 1. Sinus bradycardia R00.1 Plan At the present time she appears to be doing well with her rate and rhythm. She will continue her medical therapy and follow-up. 2. Nonrheumatic mitral valve insufficiency I34.0 Plan Her mitr al valve was assessed as noted above. She will continue to be followed by history, exam, and echocardiogram as deemed appropriate. 3. Hyperlipidemia, unspecified hyperlipidemia type E78.5 Plan A copy o f her most recent lipid labs would be appreciated for continuity of care. 4. Benign hypertension I10 Plan Her blood pressure appears to be well controlled. She will continue medical therapy and follow- up. Plan Detail Additional Comments She will be scheduled for an outpatient visit approximately 1 year unless needed sooner. In the interim, if she does proceed with orthopedic surgery, barring unfore seen change in her clinical status, it does not appear that she requires further cardiac diagnostic studies or therapeutic intervention prior to her noncardiac surgery. Should she proceed with non card iac surgery then she should have close monitoring of her cardiac rate, rhythm, and blood pressure during and following her surgery. An an attempt should be made to avoid over hydration and volume overlo ad. The above was discussed with the patient and she was in agreement. Thank you for allowing me to participate in the care of your patient. Please don't hesitate to call if any issues arise. This no te was generated using a voice recognition system and there may be incorrect words, spelling or punctuation that were not noted when reviewing the office note prior to saving. Follow Up 1 Year (PFM) Coding Level of Care Code Off vis,est,level 3 Diagnoses Sinus bradycardia R00.1 Nonrheumatic mitral valve insufficiency I34.0 Hyperlipidemia, unspecified hyperlipidemia type E78.5 Hyperlipidemia type: unspecified Benign hypertension I10 Coding Level of Care Code Off vis,est,level 3 Diagnoses Sinus bradycardia R00.1 Nonrheumatic mitral valve insufficiency I34.0 Hyperlipidemia, unspecified hyperlip idemia type E78.5 Hyperlipidemia type: unspecified Benign hypertension I10 02/28/18 1403 <Electronically signed by Romel Silverio MD> Date ___ Romel Silverio MD Cosigner Signature: Date (if applicable) CC: Nguyen Santana [employer]; Dayna Byrne MD 09-Feb-2018 Urgent Care Visit Report Result: Comments: See Note; NOTES: [facility] [address] [place] [address] OFFICE VISIT Date of Service: 02/09/18 MR#: [id number] Acct: [id number] Name: GAYATRI NAQVI Rep #: [id number] : 1935 Provider: Anjel DUONG Age/Sex: 82/F Location[place] [facility] [place] Status: Signed Intake Vital Signs02/09/18 Height 5 ft 1 in Intake Visit Reasons: uti Allergies Sulfa (Sulfonami de Antibiotics) Allergy (Verified 02/09/18 11:20) Unknown morphine Adverse Reaction (Verified 02/09/18 11:20) Nausea/Vom/Diarrhea Medications Amlodipine [Norvasc] 2.5 mg PO DAILY 03/04/16 [History Co nfirmed 02/09/18] Aspirin [Aspirin, Baby] 81 mg PO DAILY@0800 03/04/16 [History Confirmed 02/09/18] Estrogens, Conjugated [Premarin] 0.625 mg PO PRN PRN 03/04/16 [History Confirmed 02/09/18] Fluticasone /Salmeterol [Advair Hfa 115-21 Mcg Inhaler] 2 puff INHALATION BID 03/04/16 [History Confirmed 02/09/18] Hydrochlorothiazide [Hctz] 25 mg PO DAILY 03/04/16 [History Confirmed 02/09/18] Losartan Potassium [Cozaar] 100 mg PO DAILY 03/04/16 [History Confirmed 02/09/18] Sertraline HCl [Zoloft] 100 mg PO DAILY 03/04/16 [History Confirmed 02/09/18] azelastine 137 mcg (0.1 %) nasal spray aerosol INTRANASAL 25 Days #30 01/26/18 [History Confirmed 02/09/18] nitrofurantoin monohydrate/macrocrystals 100 mg capsule 1 cap PO Q12H 7 Days #14 cap 02/09/18 [Rx Confirmed 02/09/18] PFSH Medical History (Reviewed @ 11:20 by Katina Corbett) Arthritis (Acute) Asthma (Acute) Diarrhea (Acute) Fatigue (Acute) Incontinence (Acute) Knee pain (Acute) Limb weakness (Acute) SOB (shortness of breath) (Acute) Shoul marjan pain (Acute) Hypertension (Chronic) Surgical History Hx of bladder repair surgery (Acute) Hx of cholecystectomy (Acute) Hx of hysterectomy (Acute) Family History Other Heart disease Hypertension Social History Smoking Status: Never smoker HPI HPI Details: GAYATRI NAQVI, is a 82 F who presents to the office today for concern for possible UTI. Patient states that she has had increased frequency, urgency and burning with urination. She states the symptoms have been ongoing for the past 3 or 4 d ays with no change. The dysuria was relieved yesterday with Azo. She denies any fever, chills, sweats. No nausea, vomiting, diarrhea. No other associated symptoms or alleviating/aggravating factors. R OS Const Constitutional: No body ache, chills or fever(s) Resp Respiratory: No shortness of breath Cardio Cardiology: No lightheadedness, palpitations or irregular heart rhythm Gastro GI: No abdominal p ain Genitourinary-Female: Positive for burning urination, painful urination and urinary frequency; no pelvic pain, painful intercourse or blood in urine Neuro Neurology: No confusion or behavioral ch anges Psych Psychiatric: No confusion, No behavioral changes Exam Const General: cooperative, healthy appearing Resp Effort AND Inspection: normal respiratory effort Auscultation: Bilateral: Clear to Auscultation Cardio Rate: regular rate Rhythm: regular rhythm GI Auscultation: normal bowel sounds General: No CVA tenderness Psych Appearance: grossly normal Mental Status: mental status grossly nor mal Results [facility] Office Urine Color YELLOW Last Edit by Katina Corbett on 02/09/18 11:23 Office Urine Clarity Clear Last Edit by Katina Corbett on 02/09/18 11:23 Assessment AND Plan Problems 1. C ystitis N30.90 Status Acute Plan Macrobid as prescribed today. Encouraged to get plenty of rest, drink lots of clear liquids, and use Tylenol or Ibuprofen (unless contraindicated) for fever and comfort . Patient also educated on other symptomatic management techniques. To be seen in 7-10 days if no improvement; sooner if worsening of symptoms. Patient advised of potential red flags when appropriate re port to the ED. Patient verbalized understanding of all the above. Orders Orders: Medications New: nitrofurantoin monohyd/m-cryst 100 mg administer with a meal/food1 cap PO Q12H 7 days ; swallow whole ; do not open, crush, dissolve , or chew Coding Level of Care Code Off vis,est,level 3 Diagnoses Cystitis N30.90 02/09/18 1131 <Electronically signed by Anjel DUONG> Date Anjel DUONG Cosigner Signature: Date (if applicable) CC: 26-Jan-2018 Urgent Care Visit Report Result: Comments: See Note; NOTES: [facility] [address] [place] [address] OFFICE VISIT Date of Service: 01/26/18 MR#: [id number] Acct: [id number] Name: GAYATRI NAQVI Rep #: [id number] : 1935 Provider: Anjel DUONG Age/Sex: 82/F Location: [facility] Status: Signed Intake Vital Signs01/26/18 Height 5 ft 1.5 in Intake Visit Reasons: sore throat Allergies Sulfa (Sulfonamide Antibiotics) Allergy (Verified 01/26/18 11:01) Unknown morphine Adverse Reaction (Verified 01/26/18 11:01) Nausea/Vom/Diarrhea Medications Amlodipine [Norvasc] 2.5 mg PO DAILY 03/04/16 [ History Confirmed 01/26/18] Aspirin [Aspirin, Baby] 81 mg PO DAILY@0800 03/04/16 [History Confirmed 01/26/18] Estrogens, Conjugated [Premarin] 0.625 mg PO PRN PRN 03/04/16 [History Confirmed 01/26/18] F luticasone/Salmeterol [Advair Hfa 115-21 Mcg Inhaler] 2 puff INHALATION BID 03/04/16 [History Confirmed 01/26/18] Hydrochlorothiazide [Hctz] 25 mg PO DAILY 03/04/16 [History Confirmed 01/26/18] Losartan Potassium [Cozaar] 100 mg PO DAILY 03/04/16 [History Confirmed 01/26/18] Sertraline HCl [Zoloft] 100 mg PO DAILY 03/04/16 [History Confirmed 01/26/18] azelastine 137 mcg (0.1 %) nasal spray aerosol INT RANASAL 25 Days #30 01/26/18 [History Confirmed 01/26/18] PFSH Medical History Arthritis (Acute) Asthma (Acute) Diarrhea (Acute) Fatigue (Acute) Incontinence (Acute) Knee pain (Acute) Limb weakness (Acute) SOB (shortness of breath) (Acute) Shoulder pain (Acute) Hypertension (Chronic) Surgical History Hx of bladder repair surgery (Acute) Hx of cholecystectomy (Acute) Hx of hysterectomy (Acute) Family History Other Heart disease Hypertension Social History Smoking Status: Never smoker HPI HPI Details: GAYATRI NAQVI, is a 82 F who presents to the office today for sore throat and nasal c ongestion since last night. Patient states that she started have nasal congestion last night and then awoke this morning with sore throat. She states she is concerned that she is watching her grandkids this weekend. She is taking no medications for this current episode. She denies any fever, chills, sweats. No shortness of breath or difficulty breathing. No other associated symptoms or alleviating/agg ravating factors. ROS Const Constitutional: No fever(s), headache(s), anorexia, chills or abnormal sleep pattern ENT ENT: Positive for post nasal drip, sore throat, nasal congestion and nasal discharg e; no headache(s) or ear pain Resp Respiratory: No shortness of breath Cardio Cardiology: No irregular heart rhythm or palpitations Gastro GI: No nausea/dyspepsia Neuro Neurology: No headache(s) or beha vioral changes Psych Psychiatric: No abnormal sleep pattern, No behavioral changes Exam Const General: cooperative, healthy appearing [facility] Head: normal to inspection Ears: hearing grossly normal bila terally, TM's normal bilaterally, EAC's normal Nose: external nose normal, nasal discharge clear Mouth: oral mucosae normal Throat: abnormal tonsil bilaterally Resp Effort AND Inspection: normal respira tory effort Auscultation: Bilateral: Clear to Auscultation Cardio Palpation: normal PMI Rate: regular rate Rhythm: regular rhythm Neuro General: CN's II-XI intact bilaterally, alert Psych Appearance: gr ossly normal Mental Status: mental status grossly normal Results BMSRAPIDSTREPA Office Rapid Strep A Negative Last Edit by Katina Corbett on 01/26/18 11:18 Assessment AND Plan Problems 1. Acute pha ryngitis, unspecified etiology J02.9 Status Acute Plan Encouraged to get plenty of rest, drink lots of clear liquids, and use Tylenol or Ibuprofen (unless contraindicated) for fever and comfort. Patien t also educated on other symptomatic management techniques. To be seen in 7-10 days if no improvement; sooner if worsening of symptoms. Patient advised of potential red flags when appropriate report to the ED. Patient verbalized understanding of all the above. This note was generated with Hitchation software. It may contain incorrect words, spelling, and punctuation that were not noted in check ing the note before signing. Orders Orders: Medications Discontinued: oxycodone- acetaminophen 5-325 mg Discont1 - 2 tabs PO Q4H PRN PRN Pain Katina Corbett inued Reason: Pt no longer taking Coding Level of Care Code Off vis,new,level 3 Diagnoses Acute pharyngitis, unspecified etiology J02.9 Pharyngitis/tonsillitis etiology: unspecified etiology 01/26/18 1254 <Electronically signed by Anjel DUONG> Date Anjel DUONG Cosigner Signature: Date (if applicable) CC: 13-Jul-2017 Lower Ext Joint Only (Routine) Result: Comments: See Note; NOTES: [facility] Imaging Services [address] [place] [address] Lower Ext Joint Only (Routine) MR#: [id number] Acct: [id number] Name: GAYATRI NAQVI Rep # : [id number] : 1935 F 81 From: Gianluca Camarena MD PCP: Nguyen Santana Status: REG CLI Study: Lower Ext Joint Only (Routine) Date of Exam: 07/13/17 Exam# [id number] Ordering Dr: Nguyen Santana STUDY: MRI RIGHT KNEE REASON FOR EXAM: Female, 81 years old. Right medial knee pain. No known injury. Symptoms for 6 weeks TECHNIQUE: Standardized fat and water weighted pulse sequences were obtained in all 3 orthogonal planes. COMPARISON: X-rays of the right knee on June 06, 2017. FINDINGS: There is extensive intrasubstance degeneration and tearing of the posterio r horn and body of the medial meniscus with meniscal extrusion (coronal T2 series 6 image 16 and sagittal proton density series 3 image 28). A flap of meniscal tissue is noted displaced superiorly (fitz nal T2 series 6 image 19) There is diffuse, greater than 50% thickness articular cartilage loss of the medial femorotibial compartment. There is an slightly depressed subchondral fracture of the medial femoral condyle with surrounding bone marrow edema (coronal T2 series 6 image 15). There is a sprain of the superficial fibers of the medial collateral ligamentous complex (MCL). Normal distal semimemb ranosus, gracilis and semitendinosus tendons. Normal lateral meniscus. Normal hyaline cartilage of the lateral femorotibial compartment. Normal lateral femoral condyle and tibial plateau. Normal proxi mal tibiofibular articulation. Normal lateral collateral (fibular) ligament. Normal popliteus tendon. Normal biceps femoris tendon. Normal anterior cruciate ligament (ACL). Normal pos terior cruciate ligament (PCL). There is medial patellar subluxation (axial T2 series 2 image 10) Normal hyaline cartilage of the patellofemoral compartment. Normal medial and lateral patellar retinacu lum. Normal quadriceps tendon. Normal patellar tendon. Normal Hoffa's fat pad. There is a moderate volume joint effusion. There is a medial patellar plica. There is medial pericapsular soft tissue sw elling. The otherwise visualized osseous structures are unremarkable. MRI/Lower Ext Joint Only (Routine) IMPRESSION: Subchondral slightly depress ed fracture of the medial femoral condyle with surrounding edema. Extensive intrasubstance degeneration and tearing of the posterior horn and body of the medial meniscus with meniscal extrusion and a s uperiorly displaced flap of meniscal tissue. Moderate degenerative disease of the medial compartment. Low-grade sprain of the superficial fibers of the medial collateral ligament Moderate joint effus ion with medial patellar plica. Electronically Signed: Gianluca Camarena MD, FACR at 14:39 EDT , Service support , CC: Nguyen Santana Heel Splitter: Signed 07-Jul-2017 PT D/C Summary (1) Result: Comments: See Note; NOTES: [facility] Physical Therapy [facility] [address] [place] [address]. [address] [place] [id number] Fax REHABILITATION SERVICES DISCHAR GE SUMMARY MR#: [id number] Acct: [id number] Name: GAYATRI NAQVI Rep #: [id number] : 1935 81 From: Levon Jay DPT, OCS, CSCS Referring DrLizzy: Nguyen Santana Status: REG RCR Insurance: [employer] MEDICARE HP - PT D/C Summary It has been my pleasure to treat GAYATRI NAQVI under orders from Nguyen Santana, for the diagnosis of R knee pain for a total of 7 visit(s). Discharge Date: 07/06/17 Ronnie mckee see the following information for a summary of their discharge status. - Subjective Subjective: Pain this week 4-5/10 all week. Worse with weight bearing. Not changing much with ex. Does them at ho me but not helping. Sleep is OK. Saw doctor and having an MRI. Got script for meloxicm. Has no ortho doctor yet. May try a brace but willing to wait until MRI. Doing HS stretch, pulling OTB. - Pain R knee pain medially Pain Intensity (Out of 10): 5 - Objective Objective/Function: Tender and swollen medial R knee joint line. _ valgus stress test for tenderness medially. -3-110 aROM R knee. Much va lupis in knee with ambulaiton. Steps are painful on R as is each WB step with ambulation. Mild R antalgia today. - Goals Goal 1:: Pain 0-1/10 at all times and painfree at rest. Goal Progress: Not Progres sing Goal 2:: I approp HEP to minimize future problems. Goal Progress: Goal Met - Plan Plan: D/C back to doctor for MRI. - D/C Information Discharge Comments: Pt not improving and has lots of varus in R knee. Likely degeneratwed medial knee. MRI is approp. 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 Thank you for the referral of this patient. Sincerely, Levon Jay DPT, DORA <Electronically signed by Levon Jay DPT, PITO, CSCS> 07/07/17 0642 CC: Nguyen Santana EBG Signed 21-Jun-2017 Inital Evaluation (1) - PT Result: Comments: See Note; NOTES: [facility] Physical Therapy [facility] [address] [place] [address]. [address] [place] [address] Fax REHABILITATION SERVICES INITIAL EVALUATION MR#: [id number] Acct: [id number] Name: GAYATRI NAQVI Rep #: [id number] : 1935 81 From: Levon Jay DPT, PITO, CSCS Referring Dr.: Nguyen Santana Status: REG RCR Insurance: [employer] MEDICARE Patient's Visit Information GAYATRI NAQVI is a 81 year old F referred to Physical Therapy by Nguyen Santana with a diagnosis of R knee pain. Date of Evaluation: 06/20/17 Physical Therapist: Levon Jay DPT, OC - Visit Plan Frequency: 3x /Week Duration: 4 Weeks Plan: 3x/week for 2-4 weeks for US R nonthermal medial knee, stretch HS, roll adductors and quad and stretch. Strengthen knee pa infree. ES and ice as needed. - Subjective Subjective: R knee hurts. Started with L foot pain and to foot doctor and found OA. Got orthotics to put in shoes which might have messed up other knee. Went to ER for x ray of R knee and saw only OA. R knee has been hurting for 6 weeks, about the time she visited foot doctor and got lift in L shoe which L foot pain has gotten better. Pain in R knee is media l and worse with walking 8/10 and 5/10 at rest. Sleep is not interrupted. SHe is not employed. Daily activities are painful if she is on her feet long time and needs frequent breaks. - Pain R knee p ain medially Pain Intensity (Out of 10): 4 Pain Intensity Range: 4, 8 Comment: worse walking - Objective Walks with a minor R antalgia. Transfers I. Tender to the R medial pes anserine area as well as at the R medial joint line. Moderately. AROM B knees if WNL, R knee flexion is minorly painful at end range. Flex in HS, adductors and quads is moderately tight. Ankles and hips AROM and strength WFL. K nee strength 4- R knee strength ext with minimal pain, flexion is 4/5 and painfree. - knee scour R, slight positive patellar grind R, - varus B, - valgus B but painful with tensile medial forces on R. - anterior drawer. - Goals Goal 1:: Pain 0-1/10 at all times and painfree at rest. Goal Time Frame: 2-4 Weeks Goal 2:: I approp HEP to minimize future problems. Goal Time Frame: 2-4 Weeks - Rehabilitat ion Potential Physical Therapy Diagnosis: R knee pes anserine bursitis vs medial knee OA. Rehabilitation Potential: Fair - Anticipated Interventions Patient/Client Instruction: Educate patient on: Cond ition, Plan of Care For the Purpose of:: To decrease pain Therapeutic Exercise to Include: Strength training, Flexibilty training, Passive ROM, Active ROM For the Purpose of:: To decrease pain, To decre ase level of supervision to perform tasks, To improve ability of physical actions for home/community/work/leisure Manual Therapy Techniques to Include: Soft tissue mobilization For the Purpose of:: To d ecrease pain TENS: Yes Cryotherapy (ice pack, ice massage): Yes Ultrasound (thermal/non thermal): Yes - nonthermal R pes anserine area. For the Purpose of:: To decrease pain, To decrease swelling/inflam mation Thank you for the opportunity to evaluate your patient. For Medicare and Medicare HMO plans, please review the plan of care and approve it. It will need to be FAXED BACK to us at for Medicare purposes. Please let me know if there are questions or concerns regarding this plan of care. Physician Signature: Date: & amp;#60;Electronically signed by Levon Jay DPT, OCS, CSCS> 06/21/17 0736 CC: Nguyen Santana EBG Signed For Medicare only, by signing this I certify the plan of care . Physicians Signature Date 06-Jun-2017 Discharge Instruction Result: Comments: See Note; NOTES: [facility] Medical Records Department [address] [place] [address] Discharge Instruction 06/06/17 2317 MR#: [id number] Acct: [id number] Name: MONET NAQVI Rep #: [id number] : 1935 81 From: Po Herrera MD PCP: Nguyen Santana Status: REG ER ED Disposition - Plan for ED Patient: Chief Complaint: Lower Extremity Injury Instructions: ED Kne e Pain UKO Prescriptions: Oxycodone HCl/Acetaminophen [Percocet 5/325] 1 - 2 tablet PO Q4H PRN PRN #8 tablet PRN Reason: Pain Referrals: Nguyen Santana [Primary Care Provider] - What to do if you have Pr oblems For any increased pain, shortness of breath, bleeding, nausea or vomiting, chest pain, or any unexpected problems, contact your Primary Care Provider. Call [facility] ([phone]) or rep ort to the closest Emergency Room. Call 911 if necessary. 06/06/172317 <Electronically signed by Po Herrera MD> Date Po Herrera MD Cosigner Signature (If Indicated): Date CC: Nguyen Santana 06-Jun-2017 Emergency Department Summary Result: Comments: See Note; NOTES: [facility] Medical Records Department [address] [place] [address] Emergency Department Summary 06/06/172311 MR#: [id number] Acct: [id number] Name: GAYATRI NAQVI Rep #: [id number] : 1935 81 From: Po Herrera MD PCP: Nguyen Santana Status: REG ER - ER Visit Summary Date of Service: 06/06/17 Chief Complaint: [Right knee pain] History of Present Illness: The patient is a 81 F who presents with right knee pain. It is been present for about 1 week. She cannot recall any specific fall or injury. She had increased difficulty with ambulatio n today secondary to pain. She took half of a Percocet at home with significant relief. She does note that she has been undergoing treatment for arthritis in her left foot and recently bought inserts. S he is uncertain if her knee pain is related to the new inserts. Physical Examination: Afebrile vitals are stable Heart regular Lungs clear Abdomen soft Patient has focal tenderness along the medial rig ht knee there is no appreciable effusion she has active full range of motion normal flexion and extension palpable dorsalis pedis pulse with brisk capillary refill normal sensation no calf tenderness T est Results: Knee x-ray shows no significant abnormalities Emergency Department Course and Treatment: I suspect the patient's symptoms are related to knee strain, possibly due to change in gait related to her inserts. She was advised on supportive care including rest ice compression and elevation. She was given a prescription for short course of Percocet for pain control and was discharged home. Jp atment Plan: [] Disposition: Discharge Impression: Right knee pain ED Disposition - Plan for ED Patient: Chief Complaint: Lower Extremity Injury Referrals: Nguyen Santana [Primary Care Provider] - W hat to do if you have Problems For any increased pain, shortness of breath, bleeding, nausea or vomiting, chest pain, or any unexpected problems, contact your Primary Care Provider. Call [facility] ([phone]) or report to the closest Emergency Room. Call 911 if necessary. 06/06/17 2317 <Electronically signed by Po Herrera MD> Date Po Herrera MD Cosigner Signature (If Indicated): Date CC: Nguyen Brittanyadrien 06-Jun-2017 Knee 4 or More Views Result: Comments: See Note; NOTES: [facility] Imaging Services [address] [place] [address] Knee 4 or More Views MR#: [id number] Acct: [id number] Name: DRISSGAYATRI Rep #: [id number] : 1935 F 81 From: Stephanie Diaz MD PCP: Nguyen Santana Status: REG ER Study: Knee 4 or More Views Date of Exam: 06/06/17 Exam# [id number] Ordering Dr: Po Herrera MD STUDY: X-RAY - RIGHT KNEE REASON FOR EXAM: Female, 81 years old. Pain TECHNIQUE: Four view(s) of the knee. COMPARISON: None. FINDINGS: Normal visualized distal femur. Normal visualiz ed proximal tibia and fibula. Normal proximal tibiofibular articulation. Normal medial femorotibial compartment. Normal lateral femorotibial compartment. Normal patellofemoral articulation. There is no fullness above the patella. The soft tissue structures are unremarkable. RAD/Knee 4 or More Views IMPRESSION: No significant abnormalities are seen radiographically in the right knee. Electronically Signed: Stephanie Diaz MD at 23:01 EDT Tel [phone], Service support , CC: Nguyen Santana; Po Herrera MD Heel Splitter: Signed 06-Jun-2017 Liver Result: Comments: See Note; NOTES: [facility] Imaging Services [address] [place] [address] Liver MR#: [id number] Acct: [id number] Name: GAYATRI NAQVI Rep #: [id number] : [birth year] F 81 From: Rogelio Kumar MD PCP: Nguyen Santana Status: REG CLI Study: Liver Date of Exam: 06/06/17 Exam# [id number] Ordering Dr: Nguyen Santana STUDY: ABDOMINAL ULTRASOUND - RIGHT UPPER QUADRANT R CHUCK FOR VISIT: Female, 81 years old. Liver cysts. TECHNIQUE: Ultrasound evaluation of the right upper quadrant was performed with real-time and static wood-scale imaging. TECHNICAL QUALITY: Adequate . COMPARISON: Comparison is made with prior examination dated December 12, 2016. FINDINGS: Liver: The liver measures 17.9 cm. There is increased echogenicity consiste nt with fatty infiltration. The bile ducts are within normal limits. There is hepatic color flow. The direction of portal flow is hepatopetal. 2 cysts are seen in the right lobe of the liver. The larger measures 2 cm x 1.7 cm x 1.9 cm. Gallbladder: The patient is status post cholecystectomy. Common Bile Duct (C.B.D.): The common bile duct measures 5.8 mm. Pancreas: Normal size of the head, body of the pancreas. The tail portion is obscured due to overlying bowel gas. There is normal echogenicity of the pancreas. There is no demonstrated pancreatic mass or cyst. Right Kidney: Normal size of the r ight kidney. The right kidney measures 9.4 cm x 4.4 cm x 3.8 cm. Normal renal cortex. The right cortex measures 1.0 cm. There is no demonstrated renal mass or cyst. There is no right hydronephrosis. ___ US/Liver IMPRESSION: 2 small cysts seen in the right lobe of the liver. Electronically Signed: Rogelio Kumar MD at 11:47 EDT Tel [phone], Service support , CC: Nguyen Santana Heel Splitter: Signed 27-Mar-2017 Echocardiogram Complete Result: Comments: See Note; NOTES: [facility] Cardiovascular Services [address] [place] [address] Echo Complete 03/24/17 08 MR#: [id number] Acct: [id number] Name: GAYATRI NAQVI ep #: [id number] : 1935 81 From: Romel Silverio MD Attending Dr: Romel Silverio MD Status: REG I Ordering Dr: Romel Silverio MD Date: 03/24/17 Location: [facility] Sex: F C Admitted: Reason For Study: SOB Procedure This was a 2D Doppler, Color Flow transthoracic echocardiogram. The exam was of fair technical quality due to diminished acoustic windows. The study was technically difficult. Exa m performed in department. Left Ventricle Normal LV size. Left ventricular systolic function is normal. The estimated ejection fraction is 60 %. No regional wall motion abnormalities noted. Right Vent ricle Normal RV size. Normal systolic function. Atria The left atrium is mildly enlarged. Normal right atrium. No doppler evidence for ASD. Mitral Valve There is no mitral annular calcification. Zita l mitral valve. Mild (1+) mitral valve insufficiency. Tricuspid Valve Normal tricuspid valve. Trivial tricuspid valve insufficiency. Right ventricular systolic pressure estimated to be 23 mmHg. Aortic Valve Trisinus/trileaflet aortic valve. Normal aortic valve. Pulmonic Valve The pulmonic valve is not well visualized. Great Vessels Normal sized aortic root. Pericardium/Pleural Trivial pericardial effusion. There are no echocardiographic indications of cardiac tamponade. MMode/2D Measurements AND Calculations LVIDd: 3.8 cm IVSd: 1.2 cm Ao root diam: 2.5 cm LVIDs: 2.2 cm LVPWd: 1.1 cm LA dimensio n: 3.8 cm RVDd: 3.5 cm FS: 41.8 % LAV(MOD-bp): 47.0 ml LA A4 area: 16.4 cm2 RA A4 area: 9.9 cm2 LAV(MOD-bp) Indexed: 28. 5 ml/m2 LAV(MOD-sp2): 47.9 ml LAV(MOD-sp4): 44.4 ml Doppler Measurements AND Calculations MV E max lizandro: 89.0 cm/sec Lat Peak E' Lizandro: 5.7 cm/sec Med Peak E' Lizandro: 4.5 cm/sec MV A max lizandro: 96.0 cm/sec E/E ' lat: 15.5 E/E' med: 19.7 MV E/A: 0.93 Ao V2 max: 137.0 cm/sec LV V1 max: 98.1 cm/sec PA V2 max: 79.3 cm/sec Ao max P .5 mmHg LV V1 max P.8 mmHg TR max lizandro: 222.0 cm/sec TR max P.7 mmHg Interpretation Summary The study was tech nically difficult. Left ventricular systolic function is normal. The estimated ejection fraction is 60 %. The left atrium is mildly enlarged. Mild (1+) mitral valve insufficiency. Trivial tricuspid stephanie ve insufficiency. Trivial pericardial effusion. There are no echocardiographic indications of cardiac tamponade. Right ventricular systolic pressure estimated to be 23 mmHg. Ordering Physician: Romel Silverio Referring Physician: Nguyen Santana Performed By: Alice Torres RDCS Electronically s igned by: Romel Silverio MD on 03/24/2017 06:33 PM 03/24/171832 Date Romel Silverio MD CC: Nguyen Santana; Romel Silverio MD Date Dictated: 03/24/17 0 822 Date Transcribed: 03/24/171832 Heel Splitter: Signed 24-Mar-2017 Nuclear Stress Test - Treadmil Result: Comments: See Note; NOTES: [facility] Imaging Services [address] [place], [place] [address] [place] [address] Howardgeorge 4d Nuclear Stress Test - Treadmil MR#: [id number] Acct: [id number] Name: JULIUS NAQVI Rep #: [id number] : 1935 81 From: Romel Silverio MD Primary Care: Nguyen Santana Status: REG CLI Ordering Dr: Romel Silverio MD Sex: F C DATE OF SERVICE: 03/24/2017 EXERCISE TOLERANCE T EST: The patient underwent exercise tolerance test on a James protocol for 3 minutes completing stage 1, achieving a peak heart rate of 133 beats per minute (95% predicted maximum heart rate) and a peak blood pressure 188/70 mmHg and a peak MET capacity of approximately 4-5 METs. The baseline ECG demonstrated sinus bradycardia with poor R-wave progression. The peak exercise ECG demonstrated no obviou s ECG changes. There was an isolated ventricular couplet at peak recovery and rare PVC during recovery. The functional capacity was considered decreased. The patient had no complaint of chest discomf ort during exercise or recovery. The examination was discontinued secondary to dyspnea. IMPRESSION: 1. Technically adequate (percent predicted maximum heart rate greater than 85%), exercise tolerance test. 2. Peak exercise ECG with no obvious ECG changes. 3. Isolated ventricular couplet at peak recovery and rare premature ventricular contraction during recovery. 4. Nuclear images pending. MYOCARDIA L PERFUSION IMAGING STUDY: TECHNIQUE: The patient was injected with 11.2 mCi of Tc99m Cardiolite and subsequently rest SPECT Cardiolite nuclear imaging was obtained in the horizontal long, vertical jamar g and short axes views. The patient underwent exercise on a James protocol for 3 minutes completing stage 1, achieving a peak heart rate of 133 beats per minute (95% predicted maximum heart rate) and a peak blood pressure of 188/70 mmHg and a peak MET capacity of 4-5 METs. The patient was injected with 33.7 mCi of Tc99m Cardiolite and subsequently stress SPECT Cardiolite nuclear imaging was obtained i n the horizontal long, vertical long and short axes views. A gated Cardiolite study at peak stress was obtained. INTERPRETATION: Rest and stress SPECT Cardiolite nuclear imaging status post realignment , normalization and attenuation correction, demonstrate areas of extracardiac/hepatic and gastrointestinal tracer uptake near the inferior segments. Otherwise, there appears to be relative uniform trace r uptake and myocardial perfusion appearing within normal limits. There is end systolic thickening and brightening. The gated Cardiolite study demonstrates myocardial thickening and inward wall motion. The reported LVEF was 71%. IMPRESSION: 1. Rest and stress SPECT Cardiolite nuclear imaging appear to demonstrate relative uniform tracer uptake and myocardial perfusion appearing within normal limits. 2. The gated Cardiolite study reports an LVEF of 71%. Romel Silverio MD T: NTS JOB: [id number] 03/25/17 0927 <Electronically signed by Romel Silverio MD> Date Romel Silverio MD CC: Nguyen Santana; Romel Silverio MD Date Dictated: 03/24/17 1146 Date Transcribed: 03/24/17 1146 Heel Splitter: Signed 03-Mar-2017 Chest PA and Lateral Result: Comments: See Note; NOTES: [facility] Imaging Services [address] [place] [address] Verdana 4d Chest PA and Lateral MR#: [id number] Acct: [id number] Name: GAYATRI NAQVI Rep #: [id number] : 1935 F 81 From: Rogelio Kumar MD PCP: Nguyen Santana Status: REG CLI Study: Chest PA and Lateral Date of Exam: 03/03/17 Exam# [id number] Ordering Dr: Romel Silverio MD STUDY : X-RAY CHEST REASON FOR EXAM: Female, 81 years old. 6 month history of shortness of breath. TECHNIQUE: PA and lateral views of the chest. COMPARISON: None. FINDI NGS: Hyperinflation. Scattered calcified granulomas. There is no demonstrated pleural abnormality. Normal size heart. Normal mediastinum and taylor. Normal visualized pulmonary arteries. There is athero sclerotic calcification of the aortic arch with tortuosity. There is demineralization of the osseous structures. Normal visualized ribs, clavicles, and shoulders. Prior cholecystectomy. RAD/Chest PA and Lateral IMPRESSION: Hyperinflation. No acute abnormality is seen. Electronically Signed: Rogelio Kumar MD at 13:42 EDT Tel [phone], Service support , CC: Nguyen Santana; Romel Silverio MD Heel Splitter: Signed 12-Dec-2016 Abdomen/Pelvis without Cont Result: Comments: See Note; NOTES: [facility] Imaging Services [address] [place] [address] Verdana 4d Abdomen/Pelvis without Cont MR#: [id number] Acct: [id number] Name: GAYATRI NAQVI Rep #: [id number] : 1935 F 81 From: Philipp Moody MD PCP: Nguyen Santana Status: REG CLI Study: Abdomen/Pelvis without Cont Date of Exam: 12/12/16 Exam# [id number] Ordering Dr: Nguyen Santana JULIANN DY: CT ABDOMEN AND PELVIS WITHOUT CONTRAST REASON FOR EXAM: Female, 81 years old. RIGHT FLANK PAIN SURG-GB,HYST,BLADDER LIFT RADIATION DOSAGE (If Supplied By Facility): CTDIvol = ( 12.48 ) mGy, DLP = ( 574.90 ) mGycm TECHNIQUE: Transaxial images were obtained from the dome of the diaphragm to the symphysis pubis without oral contrast, and without intravenous contrast. Sagittal and coronal images we re reconstructed. COMPARISON: None. FINDINGS: The visualized lung bases are unremarkable. The visualized portions of the heart are within normal limits. There is d ecreased attenuation of the liver consistent with steatosis. There are surgical clips in the gallbladder fossa consistent with a prior cholecystectomy. Normal spleen. Normal pancreas. 21mm hypodense les ion in the inferior right lobe of the liver. Series 1002 image 74. Normal bilateral adrenal glands. Normal right kidney. Normal left kidney. There are no renal stones. There is no hydronephrosis. Nor mal visualized stomach. Normal small intestine. There are multiple colonic diverticula consistent with diverticulosis. There is non-visualization of the appendix. There are calcifications of the abdomi nal aorta and vascular structures. This is consistent for atherosclerotic disease. There is no abdominal aortic aneurysm. Normal inferior vena cava. Subcentimeter mesenteric lymph nodes. Normal urinary bladder. There is absence of the uterus consistent with a prior hysterectomy. Normal abdominal wall. There are degenerative changes of the osseous structures. ORD ER #: [id number] CT/Abdomen/Pelvis without Cont IMPRESSION: Fatty liver. There are multiple colonic diverticula consistent with diverticulosis. 21mm hypodense lesion in the inferior right lobe of the l iver. This is incompletely evaluated and on contrast enhanced study. Other findings as above. Electronically Signed: Philipp Moody MD at 22:28 EDT , Service support , CC: Nguyen Santana Heel Splitter: Signed 22-Sep-2016 Upper Ext Joint Only(Routine) Result: Comments: See Note; NOTES: [facility] Imaging Services [address] [place] [address] Verda 4d Upper Ext Joint Only(Routine) MR#: [id number] Acct: [id number] Name: BERNICE NAQVI JOSEPH Briones Rep #: [id number] : 1935 F 80 From: Emmanuel Guido MD PCP: Nguyen Santana Status: REG CLI Study: Upper Ext Joint Only(Routine) Date of Exam: 09/22/16 Exam# [id number] Ordering Dr: Adilene Byrd DO STUDY: MRI LEFT SHOULDER REASON FOR EXAM: Female, 80 years old. Left shoulder pain after fall. History of dislocation. TECHNIQUE: Standardized fat and water weighted pulse sequences were obtain ed in all 3 orthogonal planes. COMPARISON: Radiographs of the left shoulder dated September 08, 2016. FINDINGS: There is a full thickness full width tear of the supra spinatus with the tendon retracted medially approximately 3.8 cm from its insertion site (coronal series 6 image 12). There is infraspinatus tendinosis with marked thinning/attenuation (coronal series 6 image 9). There is subscapularis tendinosis with thickening of the superior fibers and a full thickness partial width tear of the inferior fibers (axial series 3 images 10-12). Normal teres minor tendo n. There is substantial atrophy of the supraspinatus and infraspinatus muscles (sagittal series 7 images 1-7). Normal infraspinatus muscle. Normal subscapularis muscle. Normal teres minor muscle. Ther e is mild arthrosis of the glenohumeral joint with a moderately-sized glenohumeral joint effusion (axial series 3 images 6-13). There is superior migration of the humeral head (coronal series 6 image 10 ). Normal biceps labral complex. The long head of the biceps tendon is torn and retracted (axial series 3 images 7-13). There is thinning/attenuation of the extra-articular portion of the long head of t he biceps (axial series 3 image 13). There is a minimally displaced superior labral tear (coronal series 5 image 10). Normal capsulo- ligamentous complex. Normal rotator interval. There is acromioclavi cular joint hypertrophy with narrowing of the subacromial space (sagittal series 7 images 7-10). There is a Type II morphology (curved), with a neutral orientation. There is fluid in the subacromial-sub deltoid bursa (coronal series 6 image 10). Normal visualized coracohumeral and coracoacromial ligaments. Normal quadrilateral space. Normal axillary space. Normal deltoid muscle. Normal trapezius musc le. MRI/Upper Ext Joint Only(Routine) IMPRESSION: Full-thickness full width retracted supraspinatus tendon tear as described. Infraspinatus tend inosis with marked thinning/attenuation. Subscapularis tendinosis with thickening of the superior fibers and a small full-thickness partial width tear of the anterior fibers. Supraspinatus and infrasp inatus muscle atrophy. Mild arthrosis of the glenohumeral joint. Torn, retracted long head of the biceps tendon. Thinning/attenuation of the extra-articular portion of the long head of the biceps. M inimally displaced superior labral tear. Acromioclavicular joint hypertrophy with narrowing of the subacromial space. Moderate-sized glenohumeral joint effusion with fluid in the subacromial-subdeltoi d bursa. Electronically Signed: Emmanuel Guido MD at 17:06 EST , Service support [phone], CC: Nguyen Santana; Sonia Byrd DO Heel Splitter: Signed 08-Sep-2016 Shoulder min 2 Views Result: Comments: See Note; NOTES: [facility] Imaging Services [address] [place] [address] Verdana 4d Shoulder min 2 Views MR#: [id number] Acct: [id number] Name: GAYATRI NAQVI Rep #: [id number] : 1935 F 80 From: Emmanuel Guido MD PCP: Nguyen Santana Status: REG CLI Study: Shoulder min 2 Views Date of Exam: 09/08/16 Exam# [id number] Ordering Dr: Sonia Byrd DO STUDY: X-RA Y - LEFT SHOULDER REASON FOR EXAM: Female, 80 years old. Previous shoulder dislocation. Continued pain. TECHNIQUE: 3 view(s) of the shoulder. COMPARISON: March 04, 2016 ___ FINDINGS: There is generalized osteopenia. There is mild degenerative arthrosis of the glenohumeral articulation. There is degenerative arthrosis of the acromioclavicular joint without inferior oss eous spur formation. There is a subacromial spur. Normal humeral head and visualized proximal humerus. There are multiple rounded calcifications projected over the central portion of the chest, likely artifacts. Normal visualized pulmonary apex. RAD/Shoulder min 2 Views IMPRESSION: Osteopenia with osteoarthritic changes. No acute pathology. Electronically Signed: Emmanuel Guido MD at 11:28 EST Tel , Service support [phone], CC: Nguyen Santana; Sonia Byrd DO Heel Splitter: Signed 06-Sep-2016 Dexa Bone Density Study (HP) Result: Comments: See Note; NOTES: [facility] Imaging Services [address] [place] [address] Verdana 4d Dexa Bone Density Study (HP) MR#: [id number] Acct: [id number] Name: LIDA NAQVI Rep #: [id number] : 1935 F 80 From: Rogelio Kumar MD PCP: Nguyen Santana Status: REG CLI Study: Dexa Bone Density Study (HP) Date of Exam: 09/06/16 Exam# [id number] Ordering Dr: Joi Santana STUDY: DUAL ENERGY X-RAY ABSORPTIOMETRY / DXA REASON FOR EXAM: Female, 80 years old. Early menopause. Loss of height. TECHNIQUE: Bone Mineral Density (BMD) measurements of lumbar spine and bilater al hips were obtained. COMPARISON: Comparison is made with prior study dated August 13, 2014. FINDINGS: Lumbar Spine (L1-L4): g/cm2 (1.111) / T-score (-0.5) / Z- score (1.3) Findings are suggestive of normal bone density with a low fracture risk. Left Femur Total: g/cm2 (0.974) / T-score (-0.3) / Z-score (1.7) Left Femoral Neck: g/cm2 (0.853) / T-score (-1.3) / Z-score (0.8) Right Femur Total: g/cm2 (0.976) / T-score (0.3) / Z-score (1.7) Right Femoral Neck: g/cm2 (0.906) / T-score (0.9) / Z-score (1.2) The T-Scores on the most recent prior examination were: Lumbar Spine (L1-L4): There has been improvement of bone density since the previous examination. Left Femur Total: which represents a worsening of 1.2%. Right Femur Total: which represents an improve ment of 4.6%. HPBD/Dexa Bone Density Study (HP) IMPRESSION: The patient is considered osteopenic as outlined below according to World Amad[employer] Organ ization (WHO) criteria with a moderate fracture risk. There has been improvement of bone density since the previous examination. Reference Information: The T-score is the number of standard deviations above or below the standard which is normal for young adults at their peak bone mineral density. The World Health Organization (WHO) interprets the T-scores as follo ws: Above -1 Normal bone density Between -1 and -2.5 Osteopenia Equal to / or below -2.5 Osteoporosis As a practical clinical guideline, osteopenia may be graded as follows: Mild -1 through -1.5 Moder ate -1.6 through -2.0 Severe -2.1 through -2.4 The Z-score is the number of standard deviations above or below age-matched controls. A Z-score of less than -1.5 would be considered abnormal. Reference s: 1. NIH Osteoporosis and Related Bone Diseases http://www.osteo.org 2. International Society for Clinical Densitometry http://www.iscd.org 3. National Osteoporosis Foundation http://www.nof.org Elect ronically Signed: Rogelio Kumar MD at 13:43 EST Tel [phone], Service support [phone], CC: Nguyen Santana Heel Splitter: Signed 24-May-2016 PT D/C Summary (1) Result: Comments: See Note; NOTES: [facility] Physical Therapy [facility] [address] [place] [address]. [address] [place] [address] Fax REHABILITATION SERVICES DISCHA RGE SUMMARY MR#: [id number] Acct: [id number] Name: GAYATRI NAQVI Rep #: [id number] : 1935 80 From: Cert. BALDOMERO Osborne PTT Referring Dr.: Edson Franks DO Status: REG RCR Insurance: [employer]ICARE HP - PT D/C Summary It has been my pleasure to treat GAYATRI NAQVI under orders from Edson Franks, for the diagnosis of ANTERIOR DISLOCATION LEFT HUMERUS for a total of 15 visi t(s). Discharge Date: 05/24/16 Please see the following information for a summary of their discharge status. - Subjective Subjective: PATIENT REPORTS SHE IS DOING MUCH BETTER. STATES SHE WOULD LIKE TO TRY TO CONT ON HER OWN AT HOME BECAUSE THIS IS SO COSTLY - Pain Left Shoulder Pain Intensity (Out of 10): 0 - Overall Improvement % Improvement: 87 - Objective Objective/Function: REACHING PROV OKES LEFT SHOULDER PAIN THAT SUBSIDES QUICKLY WHEN SHE STOPS. LEFT SHOULDER ACTIVE FLEXION TO 150 DEG NOW. ABD TO 160 DEG. GOOD TECHNIQUE WITH ALL HOME EX' S. ALL GOALS MET. - Goals Goal 1:: DECREASE C /O LEFT SHOULDER PAIIN Goal Progress: Goal Met Goal 2:: IMPROVE LUE FUNCTIONAL ROM AND STRENGTH Goal Progress: Goal Met Goal 3:: INDEP HEP Goal Progress: Goal Met - Plan Plan: D/C TO HEP. ENCOURAGED RHODA GOFF TO CONTACT Cruzito PAYTON CHON IF SHE DOES NOT CONTINUE TO IMPROVE OVER THE NEXT MONTH - D/C Information If there are questions or concerns regarding this patient's physical therapy, please feel free to call me at [phone]. Thank you for the referral of this patient. Sincerely, Norma Thomas <Electronically signed by Norma Thomas PT, MDT> 05/24/16 1341 CC: George Bueno MD ; Edson Franks DO TAPAN Signed 18-Apr-2016 Re-Evaluation - PT (1) Result: Comments: See Note; NOTES: [facility] Physical Therapy [facility] [address] [place] [address]. [address] [place], [place] [address] Fax [facility]EE[facility]ATION / [facility] [address] PHYSICAL THERAPY MR#: [id number] Acct: [id number] Name: GAYATRI NAQVI Rep #: [id number] : 1935 80 From: Norma Thomas PT, Cert. MDT Referring DrLizzy: Ander Franks DO Status: REG RCR Insurance: [employer] MEDICARE Edson Franks, It has been my pleasure to treat GAYATRI NAQVI over the last 10 visits for ANTERIOR DISLOCATION LEFT HUMERUS. P lease see the progress note below for an update on the physical therapy plan of care! Subjective: PATIENT REPORTS SHE CAN NOW MOVE HER ARM A LOT BETTER AND THE PAIN IS BETTER. SHE REPORTS SHE IS ABLE TO LIFT SOME THINGS AND DO HER HAIR BETTER. SHE IS ALSO REACHING BETTER BUT IT HURTS. PATIENT REPORTS SHE CAN DO ABOUT EVERYTHING SHE NEEDS TO DO BUT SOME THINGS CAUSE HER PAIN LIKE REACHING TO GET T HINGS OUT OF THE CUPBOARD. PATIENT REPORTS SHE SAW DR. FRANKS LAST WEEK AND HE THOUGHT SHE WAS DOING GOOD AND RELEASED HER. PATIENT EXPRESSING CONCERN OVER THE EXPENSE TO HER OF PT BUT WILLING TO DO W HAT SHE NEEDS FOR RECOVERY. PATIENT REPORTS SHE FEELS THE TREATMENT SESSIONS ARE BENEFICIAL AND SHE PROBALBY NEEDS MORE. Objective/Function: GREAT PROGRESS TOWARD ALL PT GOALS HOWEVER PATIENT IS STILL GETTING UP TO 7 /10 LEFT SHOULDER PAIN MAKING SOME ADL'S LIKE REACHING IN THE CUPBOARD DIFFICULT. UPON EXAM, PATIENT NOW HAS 135 DEGREES OF ACTIVE LEFT SHOULDER FLEX, 140 DEG ABD AND SUPINE ER IS 70 D EG, WITH IR 60 DEG. MMT WITHIN ROM LIMITS = FLEXION 3+/5, ABD 3+/5, ER 3+/5, IR 4/5. PATIENT HAS WRITTEN HEP AND IS INDEP WITH CURRENT HEP. Plan Plan: CONT PER POC. CONT PT 1X/WEEK X 5 WEEKS FOR MAN UAL ROM NEEDED AND HEP PROGRESSION. PATIENT AGREEABLE. Goals Goal 1:: DECREASE C/O LEFT SHOULDER PAIIN Goal Time Frame: 4-6 Weeks Goal Progress: Progressing Goal 2:: IMPROVE LUE FUNCTIONAL ROM AND STRENGTH Goal Time Frame: 4-6 Weeks Goal Progress: Progressing Goal 3:: INDEP HEP Goal Time Frame: 4-6 Weeks Goal Progress: Progressing Anticipated Interventions Patient/Client Instruction: Educate patient on: Condition, Plan of Care, Risk Factors, Benefits of Fitness Program Therapeutic Exercise to Include: Postural training, Passive ROM, Active ROM Manual Therapy Techniques to Includ e: Soft tissue mobilization Cryotherapy (ice pack, ice massage): Yes Thermo therapy (hot pack): Yes Please do not hesitate to contact me at [phone] by phone or if you have que stions or concerns regarding this new plan of care! Sincerely, Norma Thomas <Electronically signed by Norma Thomas PT, CertLizzy MDT> 04/18/16 1307 CC: George Bueno MD; Edson mead DO TAPAN Signed For Medicare only, by signing this I certify the plan of care. Physicians Signature Date 16-Mar-2016 Inital Evaluation (1) - PT Result: Comments: See Note; NOTES: [facility] Physical Therapy [facility] [address] [place] [address]. [address] [place] [address] Fax REHABILITATION RVICES INITIAL EVALUATION MR#: [id number] Acct: [id number] Name: GAYATRI NAQVI Rep #: [id number] : 1935 80 From: Norma Thomas PT, CertLizzy MDT Referring Dr.: Edson Franks DO Status: RE G R Insurance: [employer]IC[employer] Patient's Visit Information GAYATRI NAQVI is a 80 year old F referred to Physical Therapy by Edson Franks with a diagnosis of ANTERIOR DISLOCATION LEFT HUMERUS. Date of Evaluation: 03/16/16 Physical Therapist: Norma Thomas - Visit Plan Frequency: 2-3x /Week Duration: 10 VISITS - Subjective Subjective: THIS PATIENT PRESENT TO PT S/P FALL . SHE REPORTS THE FALL DISLOCATED HER SHOULDER AND THE ED PUT IT BACK IN. PATIENT REPORTS INTERMITTENT LEFT SHOULDER PAIN RANGING 0- 6/10 PROVOKED BY REACHING. NO PAIN AT REST TYPICALLY. SHE REPORTS SHE IS NOT ALLOWED TO DRIVE AND SHE IS SUPPOSE TO WEAR THE SLING UNTIL SHE SEE'S DR. FRANKS AGAIN APRIL 07 2016. PMH: ESSENTIAL TREMORS, HTN, HEART PROBLEM, UNREPAIRED RIGHT ROTATOR CUFF TEAR. - Object estefani THIS PATIENT AMBULATES INDEP'LY INTO PT WITH A SLING ON HER LEFT UE. HER SITTING POSTURE IS POOR. HER STANDING POSTURE IS POOR. SHE HAS A FORWARD HEAD POSTURE. 130 DEG ACTIVE RIGHT SHOULDER FLEXI ON WITHOUT PAIN AND 95 DEG ACTIVE LEFT SHOULDER FLEX WITH PAIN. 70 DEG LEFT SHOULDER ACTIVE ABD. SUPINE: ER = 25 DEG, IR = 35 DEG WITH 45 DEG ABDUCTION. SHE IS VERY PAINFUL AT THE END OF THE AVAILABLE ROM ALL PLANES WITH EMPTY END-FEEL. SUPINE FLEX TO ONLY 90 DEG AND ABD 70 DEG. GAURAV UE LIGHT TOUCH SENSATION IS INTACT AND SYMMETRICAL. FULL ACTIVE ELBOW , WRIST AND FORARM ROM. - Goals Goal 1:: DECR EASE C/O LEFT SHOULDER PAIIN Goal Time Frame: 4-6 Weeks Goal 2:: IMPROVE LUE FUNCTIONAL ROM AND STRENGTH Goal Time Frame: 4-6 Weeks Goal 3:: INDEP HEP Goal Time Frame: 4-6 Weeks - Rehabilitation Potential Rehabilitation Potential: Good - Anticipated Interventions Patient/Client Instruction: Educate patient on: Condition, Plan of Care, Risk Factors, Benefits of Fitness Program For the Purp ose of:: To improve self management Therapeutic Exercise to Include: Postural training, Passive ROM, Active ROM For the Purpose of:: To improve ability of physical actions for home/community/work/leis ure Manual Therapy Techniques to Include: Soft tissue mobilization For the Purpose of:: To decrease pain, To increase ROM Cryotherapy (ice pack, ice massage): Yes Thermo therapy (hot pack): Yes For the Purpose of:: To decrease pain, To decrease swelling/inflammation Thank you for the opportunity to evaluate your patient. For Medicare and Medicare HMO plans, please review the plan of care a nd approve it. It will need to be FAXED BACK to us at [phone] for Medicare purposes. Please let me know if there are questions or concerns regarding this plan of care. Physician Signature:__ Date: <Electronically signed by Norma Thomas PT, Cert. MDT> 03/16/16 1323 CC: George Bueno MD; Edson Franks DO TAPAN Signed For Medicare only, by signing this I certify the plan of care. Physicians Signature Date 06-Mar-2016 Discharge Instruction Result: Comments: See Note; NOTES: [facility] Medical Records Department [address] [place] [address] Discharge Instruction 03/04/16 1919 MR#: [id number] Acct: [id number] Name: GAYATRI NAQVI Rep #: [id number] : 1935 80 From: Pastor Mccain MD PCP: George Bueno MD Status: DEP ER ED Disposition - Plan for ED Patient: Chief Complaint: Upper Extremity In jury Instructions: ED Dislocation: Shoulder (Reduced) Prescriptions: Oxycodone HCl/Acetaminophen [Percocet 5/325] 1 - 2 tablet PO Q4H PRN PRN #20 tablet PRN Reason: Pain Docusate Sodium [Colace] 10 0 mg PO DAILY #20 capsule Referrals: Wesley Alba MD [STAFF PHYSICIAN] - 5-7 Days What to do if you have Problems For any increased pain, shortness of breath, bleeding, nausea or vomiting, ch est pain, or any unexpected problems, contact your doctor. Call [facility] ([phone]) or report to the closest Emergency Room. Call 911 if necessary. 03/06/16 0704 <Electronical ly signed by Pastor Mccain MD> Date Pastor Mccain MD Cosigner Signature (If Indicated): Date CC: George Bueno MD 06-Mar-2016 Emergency Department Summary Result: Comments: See Note; NOTES: [facility] Records Department [address] [place] [address] Emergency Department Summary MR#: [id number] Acct: [id number] Name: GAYATRI NAQVI Rep #: [id number] : 1935 80 From: Pastor Mccain MD PCP: George Bueno MD Status: DEP ER DATE OF SERVICE: 03/04/2016 METHOD OF ARRIVAL: Private car. CHIEF COMPLAINT: F all. HISTORY OF PRESENT ILLNESS: A 80-year-old female patient of Dr. Bueno, reports that she fell today off of ladder, she was 3-4 feet up. She reports that she has left shoulder pain that is 10/1 0 in severity. She has mild right hip pain and left wrist pain as well. She denies any blow to the head or loss of consciousness. No neck or back pain. No other complaints. PHYSICAL EXAMINATION: GE NERAL: Reveals alert woman in no acute distress. VITAL SIGNS: Stable. MUSCULOSKELETAL: Significant physical exam findings include exam of her left shoulder, which shows severe tenderness to palpation and obvious deformity. She has mild tenderness to palpation over her left wrist and over her right hip. Neck and back are nontender. Head is atraumatic. CARDIOVASCULAR: Regular rate and rhythm with no murmur. RESPIRATORY: Clear to auscultation bilaterally. The remainder of physical exam is unremarkable. Please see T-sheet for details. TEST RESULTS: The patient's x-ray of her left shoulder sh ows an anterior dislocation. She had repeat x-ray of her left shoulder shows it to be reduced without fracture. X-ray of her left wrist that shows degenerative changes. X-ray of her right hip and pelv is that shows degenerative changes. EMERGENCY DEPARTMENT COURSE: The patient was treated with fentanyl IM. When the x-ray returned and shoulder was dislocated, she had an IV placed, was given propo fol IV, it was reduced without difficulty. TREATMENT PLAN: The patient will be discharged with instructions to follow up with Dr. Alba within 3-5 days for another exam. DISPOSITION: Home, stab le condition. IMPRESSION: 1. Fall. 2. Left shoulder dislocation. 3. Procedural sedation. 4. Reduction, left shoulder. MD Khloe Padilla C: George Alba MD T: [facility] B: [id number] 03/06/16 0704 <Electronically signed by Pastor Mccain MD> Date Pastor Mccain MD Cosigner Signature (If Indicated): Date CC: George Bueno MD; Wesley Alba MD Date Dictated: 03/05/161121 Date Transcribed: 03/05/161121 Heel Splitter: Signed 04-Mar-2016 Shoulder One View Result: Comments: See Note; NOTES: [facility] Imaging Services [address] [place] [address] Verdana 4d Shoulder One View MR#: [id number] Acct: [id number] Name: STEPHANIE NAQVI Anselmo Rep #: [id number] : 1935 F 80 From: Bernadette Daniel MD PCP: George Bueno MD Status: REG ER Study: Shoulder One View Date of Exam: 03/04/16 Exam# [id number] Ordering Dr: Pastor Mccain MD STUDY: X-RAY - LEFT SHOULDER REASON FOR EXAM: Female, 80 years old. Post reduction of the left shoulder dislocation. TECHNIQUE: One view(s) of the shoulder. COMPARISON: Prior left shoulder radiograph of March 04, 2016 at 5:58 PM. FINDINGS: The left glenohumeral joint is anatomically relocated without a visualized fracture deformity. Normal alignment of the acromioclavicular joint. IMPRESSION: Anatomic relocation of the left glenohumeral joint without fracture deformity. Electronically Signed: Bernadette Daniel MD at 19:00 EDT , Service support [phone], RAD/Shoulder One View IMPRESSION: Anatomic relocation of the left glenohume ral joint without fracture deformity. Electronically Signed: Bernadette Daniel MD at 19:00 EDT , Service support [phone], CC: George Xiao i, MD; Pastor Mccain MD Heel Splitter: Signed 04-Mar-2016 Hip 2-3 Views with Pelvis Result: Comments: See Note; NOTES: [facility] Imaging Services [address] [place] [address] Verdana 4d Hip 2-3 Views with Pelvis MR#: [id number] Acct: [id number] Name: GAYATRI ROSA Rep #: [id number] : 1935 F 80 From: Bernadette Daniel MD PCP: George Bueno MD Status: REG ER Study: Hip 2-3 Views with Pelvis Date of Exam: 03/04/16 Exam# [id number] Ordering Dr: Pastor Mccain MD STUDY: X-RAY - PELVIS AND RIGHT HIP REASON FOR EXAM: Female, 80 years old. Right hip pain after falling off ladder. TECHNIQUE: Radiological exam, hip, unilateral, with pelvis when performed; 3 views. COMPARISON: None. FINDINGS: There is a non-specific bowel gas pattern. Normal visualized soft tissue structures. Normal bilateral iliac wings, sacroiliac joints and visualized sacrum. Normal bilateral superior and inferior pubic rami. Normal pubic symphysis. Normal bilateral ischial tuberosities. Normal visualized femoral head . Normal acetabulum. Normal hip joint. IMPRESSION: Normal x-ray examination of the pelvis and hip. Electronically Signed: Bernadette Daniel MD at 17:17 EDT , Service support [phone], RAD/Hip 2-3 Views with Pelvis IMPRESSION: Normal x-ray examination of the pelvis and hip. Chad quarles Signed: Bernadette Daniel MD at 17:17 EDT , Service support [phone], CC: George Bueno MD; Pastor Mccain MD Heel Splitter: Signed 04-Mar-2016 Shoulder min 2 Views Result: Comments: See Note; NOTES: [facility] Imaging Services [address] [place] [id number] Verda 4d Shoulder min 2 Views MR#: [id number] Acct: [id number] Name: Mayra NAQVI Rep #: [id number] : 1935 F 80 From: Bernadette Daniel MD PCP: George Bueno MD Status: REG ER Study: Shoulder min 2 Views Date of Exam: 03/04/16 Exam# [id number] Ordering Dr: Zach Mccain MD STUDY: X-RAY - LEFT SHOULDER REASON FOR EXAM: Female, 80 years old. Traumatic injury of the left shoulder falling off a ladder. TECHNIQUE: 2 view(s) of the shoulder. COMPARISON: None . FINDINGS: Complete anterior dislocation of the left shoulder without a demonstrated fracture deformity. Normally located acromioclavicular joint. Normal acrom ion. Normal humeral head and visualized proximal humerus. The soft tissue structures are unremarkable. Normal visualized pulmonary apex. IMPRESSION: Complet e anterior dislocation of the left shoulder without identified fracture. Electronically Signed: Bernadette Daniel MD at 17:24 EDT , Service support [phone], Fax RAD/Shoulder min 2 Views IMPRESSION: Complete anterior dislocation of the left shoulder without identified fracture. Electronically Signed: Bernadette Daniel MD at 17:24 EDT , Service support [phone], CC: George Bueno MD; Pastor Mccain MD Heel Splitter: Signed 04-Mar-2016 Wrist min 3 Views Result: Comments: See Note; NOTES: [facility] Imaging Services [address] [place] [address] Verdana 4d Wrist min 3 Views MR#: [id number] Acct: [id number] Name: STEPHANIE NAQVI Rep #: [id number] : 1935 F 80 From: Bernadette Daniel MD PCP: George Bueno MD Status: REG ER Study: Wrist min 3 Views Date of Exam: 03/04/16 Exam# [id number] Ordering Dr: Pastor Mccain MD STUDY: X-RAY - LEFT WRIST REASON FOR EXAM: Female, 80 years old. Left wrist pain after falling off a ladder. TECHNIQUE: 3 view(s) of the wrist were obtained. COMPARISON: None. FINDINGS: Normal visualized distal radius and ulna. Mild degenerative narrowing of the radiocarpal joint. Normal distal radioulnar articulation. Normal carpal bones. Normal carpal articulations. Normal carpometacarpal articulation of the thumb. Normal second through fifth carpometacarpal articulations. Normal visualized metacarpal bones. The soft tissue structures are unremarkable. IMPRESSION: Negative for fracture or dislocation. Electronically Signed: Bernadette Daniel MD at 17:12 EDT , Se rvice support [phone], RAD/Wrist min 3 Views IMPRESSION: Negative for fracture or dislocation. Electronically Signed: Bernadette Daniel MD at 17:12 EDT , Service support [phone], CC: George Bueno MD; Pastor Mccain MD Heel Splitter: Signed 24-Mar-2015 Upper Ext Joint Only(Routine) Result: Comments: See Note; NOTES: [facility] Imaging Services [address] [place] [address] MRI Report MR#: [id number] Acct: [id number] Name: GAYATRI NAQVI Rep #: [id number] : 1935 F 79 From: Gianluca Camarena MD PCP: George Bueno MD Status: REG CLI Study: Upper Ext Joint Only(Routine) Date of Exam: 03/24/15 Exam# [id number] Ordering Dr: George Bueno MD STUDY: MRI RIGHT SHOULDER REASON FOR EXAM: Female, 79 years old. Posterior and superior right shoulder pain and limited range of motion TECHNIQUE: Standardized fat and water weighted pulse sequences were obtained in all 3 orthogonal planes. COMPARISON: None. FINDINGS: There is a full-thickness tear of the supraspinatus tendon with tendon retraction to approxi mately the level of the acromioclavicular joint and measuring approximately 2.9 cm in diameter (coronal T2 series 6 image 10). There is tendinosis of the infraspinatus tendon. There is a tear of the subscapularis tendon (axial T2 series 4 image 13). Normal teres minor tendon. There is less than a 50% fatty muscular atrophy of the supraspinatus and infraspinatus muscles (Goutallier Stage II). Th ere is greater than a 50% fatty muscular atrophy of the subscapularis muscle (Goutallier Stage IV). Normal teres minor muscle. There is a small volume joint effusion of the glenohumeral joint. Zita l humeral head and visualized proximal humerus. There is tendinosis of the long biceps tendon with a longitudinal split tear in the bicipital groove (axial T2 series 4 image 16) and possible complete tear at the level of the intracapsular segment . Normal labrum. Normal capsulo- ligamentous complex. There is moderate arthrosis of the acromioclavicular articulation. There is a Type II morpholog y (curved), with a neutral orientation. There is fluid distention of the subacromial- subdeltoid bursa, which communicates with the glenohumeral joint, through a rotator cuff tear. Normal visualized coracoacromial ligament. Normal quadrilateral space. Normal axillary space. Normal deltoid muscle. Normal trapezius muscle. IMPRESSION: Full-thickness tear of the supraspinatus tendon with tendon retraction and muscular atrophy. Tendinosis of the infraspinatus tendon with muscular atrophy. Tear of the subscapularis tendon with muscular atrophy. Tendino sis of the long biceps tendon with a longitudinal split tear in the extracapsular segment and a possible rupture of the intracapsular segment. Moderate arthrosis of the acromioclavicular joint. Gle nohumeral joint effusion with fluid extending into the subacromial subdeltoid bursa through the rotator cuff tear. Electronically Signed: Gianluca Camarena MD, FACR at 15:58 EDT Tel , Service support [phone], CC: George Bueno MD Heel Splitter: Signed 18-Oct-2014 Emergency Department Summary Result: Comments: See Note; NOTES: [facility] Medical Records Department [address] [place] [address] Emergency Department Summary MR#: [id number] Acct: [id number] Name: DRISSMayra Rep #: [id number] : 1935 78 From: Stephanie Andersen MD PCP: George Bueno MD Status: DEP ER DATE OF SERVICE: 10/18/2014 CHIEF COMPLAINT: Fall. PALACIOS HISTORY: The patient is a 78- year-old female states that she fell when getting up from the sofa yesterday and hit her head on an end table. She did not lose consciousness. She has not had nausea, vomiting or vision changes. She has a slight area of swelling on the back of her head. Her family was concerned that she might have some bleeding. She is not on any anticoagulants. PHYSICAL EXAMINATION: VITAL SIGNS: Blood pres sure is 146/80, temperature 96.4, heart rate 80, respiratory rate 16. GENERAL: The patient is sitting in bedside chair, reading the newspaper. She easily moves to the bed. HEAD AND NECK: Reveals s ome mild edema over the right posterior parietal region. There is no laceration. She has mild low C-spine tenderness. No step offs noted. HEART: Regular. LUNGS: Clear. NEUROLOGIC: Unremarkable. H OSPITAL COURSE: CT head shows chronic involutional changes, no fracture, no hemorrhage. CT of the C-spine shows arthritic changes and no fracture. The patient declined anything for pain while here. She will use Tylenol or ibuprofen at home. She is comfortable with the plan. DISPOSITION: Discharge. IMPRESSION: Closed head injury. Stephanie Andersen MD T: NTS JOB: [id number] 10/18/14 160 6 <Electronically signed by Stephanie Andersen MD> Date Stephanie Andersen MD CC: George Bueno MD Date Dictated: 10/18/14 1050 Date Transcribed: 10/18/14 105 Heel Splitter: Signed 18-Oct-2014 Discharge Instruction Result: Comments: See Note; NOTES: [facility] Medical Records Department [address] [place] [address] Discharge Instruction 10/18/14 1040 MR#: [id number] Acct: [id number] Name: GAYATRI NAQVI Rep #: [id number] : 1935 78 From: Stephanie Andersen MD PCP: George Bueno MD Status: REG ER ED Disposition - Plan for ED Patient: Disposition: Home Chief Complaint: Fall Instructions: ED HEAD INJURY, No Wake-Up (Adult) Referrals: George Bueno MD [Primary Care Provider] - 1 Week if not improving What to do if you have Problems For any increased pain, shortness o f breath, bleeding, nausea or vomiting, chest pain, or any unexpected problems, contact your doctor. Call [facility] ) or report to the closest Emergency Room. Call 911 if necessary . 10/18/14 1042 <Electronically signed by Stephanie Andersen MD> Date Stephanie Andersen MD Cosigner Signature (If Indicated): Date CC: George Bueno MD 18-Oct-2014 Brain/Head without Contrast Result: Comments: See Note; NOTES: [facility] Imaging Services [address] [place] [address] CAT Scan Report MR#: [id number] Acct: [id number] Name: GAYATRI NAQVI Rep #: [id number] : 1935 F 78 From: Jacklyn Vázquez MD PCP: George Bueno MD Status: REG ER Study: Brain/Head without Contrast Date of Exam: 10/18/14 Exam# [id number] Ordering Dr: Stephanie Andersen MD STUDY: C T BRAIN WITHOUT CONTRAST REASON FOR EXAM: Female, 78 years old. Fall on 10/17/14. Hit right posterior head. No laceration. Right neck pain. History of COPD and asthma as well as hypertension. RADIA TION DOSAGE (If Supplied By Facility): CTDIvol = ( 58.39 ) mGy, DLP = ( 956.18 ) mGycm TECHNIQUE: Transaxial CT imaging of the brain was performed without administration of intravenous contrast mate rial. COMPARISON: CT 10/07/11. FINDINGS: Normal soft tissue structures. Normal calvarium. There is moderate cerebral atrophy with widening of the extra-axial sp aces and ventricular dilatation. There are areas of decreased attenuation within the white matter tracts of the supratentorial brain, consistent with microvascular disease changes. Normal basal gangl ia and thalami. Normal brainstem. There is moderate cerebellar atrophy. There is no intracranial hemorrhage. There are no findings of an acute ischemic infarction. Normal visualized paranasal sinu ses. There is biconvex deviation of the nasal septum. With the exception of bilateral cataract surgery, the remaining orbits and globes appear unremarkable. IM PRESSION: 1. Chronic involutional changes of the brain. There is no interval change. 2. There is no acute fracture. 3. There is no acute intracranial hemorrhage. Electronically Signed: Elda nation MD at 10:34 EST , Service support [phone], CC: George Bueno MD; Stephanie Andersen MD Heel Splitter: Signed 18-Oct-2014 Spine Cervical without Contras Result: Comments: See Note; NOTES: [facility] Imaging Services [address] [place] [address] CAT Scan Report MR#: [id number] Acct: [id number] Name: GAYATRI NAQVI Rep #: [id number] : 1935 F 78 From: Jacklyn Vázquez MD PCP: George Bueno MD Status: REG ER Study: Spine Cervical without Contras Date of Exam: 10/18/14 Exam# [id number] Ordering Dr: Stephanie Andersen MD STUDY : CT CERVICAL SPINE WITHOUT CONTRAST REASON FOR EXAM: Female, 78 years old. Fall on 10/17/14. Right neck pain. History of hypertension, asthma and COPD. RADIATION DOSAGE (If Supplied By Facility): C TDIvol = ( 13.71 ) mGy, DLP = ( 241.72 ) mGycm TECHNIQUE: High resolution transaxial imaging was performed without contrast material. Sagittal and coronal images were reconstructed. COMPARISON: CT 10/07/11 FINDINGS: Normal craniovertebral junction. There are degenerative changes of the anterior atlantoaxial articulation. Normal odontoid process. There is straightening of the normal cervical lordosis. Normal vertebral bodies and posterior osseous elements. C2-3: Endplate spondylosis. Loss of disc height. No disc bulge or disc herniation. Normal centr al canal and intervertebral neuroforamina. C3-4: Endplate spondylosis. Loss of disc height. No disc bulge or disc herniation. Normal central canal and intervertebral neuroforamina. C4-5: Endplate s pondylosis, loss of disc height and mild diffuse disc bulge. There is mild central canal stenosis. Normal neural foramina. C5-6: Endplate spondylosis, loss of disc height and mild diffuse disc bulge . There is mild central canal stenosis. Normal neural foramina. C6-7: Endplate spondylosis, loss of disc height and mild diffuse disc bulge. There is mild central canal stenosis. Normal neural forami na. C7-T1: Endplate spondylosis. Loss of disc height. No disc bulge or disc herniation. Normal central canal and intervertebral neuroforamina. Normal visualized soft tissue structures. IMPRESSION: Multilevel degenerative changes, as described above. There is no significant interval change. There is no acute fracture. There is no traumatic subluxation. Th ere is straightening of lordotic curvature. Electronically Signed: Elda Vázquez MD at 10:45 EST , Service support [phone], CC: George Bueno MD ; Stephanie Andersen MD Heel Splitter: Signed 13-Aug-2014 Bilat Scrn Digital & CAD Result: Comments: See Note; NOTES: [facility] Imaging Services [address] [place] [address] Breast Imaging Report MR#: [id number] Acct: [id number] Name: GAYATRI NAQVI Rep #: [id number] : 1935 F 78 From: Rogelio Kumar MD PCP: George Bueno MD Status: REG CLI Exam# [id number] Ordering Dr: George Bueno MD MAMMOGRAPHY - BILATERAL SCREENING REASON FOR EXAM: Female, 78 years old. Routine annual screening examination. PERTINENT HISTORY: Non-contributory. Prior right stereotactic biopsy. TECHNIQUE: Digital examination. Mediolateral oblique (MLO) and cr aniocaudad (CC) views of both breasts were obtained. CAD: CAD was performed on this study. COMPARISON: Comparison is made with prior study dated August 12, 2013 and March 28, 2012. FINDINGS: Breast Composition: The breasts are almost entirely fatty. There are no dominant masses or suspicious calcifications. No other significant abnormalities are identif ied. There has been no significant change since the prior study. IMPRESSION: Stable bilateral screening mammogram. Yearly follow-up recommended. (A) ASSESSMENT CATEGORY: BIRADS Category 2: Benign finding(s). A letter regarding these results will be sent to the patient by the facility within 30 days. Approximately 10% o f breast cancers are not detected by mammography. A normal mammogram should not delay biopsy of a clinically suspicious abnormality. Electronically Signed: Rogelio Kumar MD at 10: 39 EST Tel [phone], Service support [phone], CC: George Bueno MD Heel Splitter: Signed 13-Aug-2014 Dexa Bone Density Study (HP) Result: Comments: See Note; NOTES: [facility] Imaging Services [address] [place] [address] Bone Density Report MR#: [id number] Acct: [id number] Name: GAYATRI NAQVI Rep #: [id number] : 1935 F 78 From: Rogelio Kumar MD PCP: George Bueno MD Status: REG CLI Study: Dexa Bone Density Study () Date of Exam: 08/13/14 Exam# [id number] Ordering Dr: George Bueno MD STUDY: DUAL ENERGY X-RAY ABSORPTIOMETRY / DXA REASON FOR EXAM: Female, 78 years old. Osteoporosis. TECHNIQUE: Bone Mineral Density (BMD) measurements of lumbar spine and bilateral hips were ob tained. COMPARISON: Comparison is made with prior study dated March 28, 2012. FINDINGS: Lumbar Spine (L1-L4): g/cm2 (1.028) / T-score (-1.2) / Z-score (0.6) Fi ndings are suggestive of osteopenia with a low fracture risk. Left Femur Total: g/cm2 (0.986) / T-score (-0.2) / Z-score (1.7) Left Femoral Neck: g/cm2 (0.841) / T-score (-1.4) / Z-score (0.6) Right Femur Total: g/cm2 (0.933) / T-score (-0.6) / Z-score (1.3) Right Femoral Neck: g/cm2 (0.860) / T-score (-1.3) / Z-score (0.8) The T-Scores on the most recent prior examination were: Lumbar Spine (L1-L4): There has been worsening of bone density since the previous examination. Left Femur Total: which represents an improvement of 2.5%. Right Femur Total: which represents a worsening of 1.0%. IMPRESSION: The patient is considered osteopenic as outlined below according to World Amad[employer] Organization (WHO) criteria with a low fracture risk. There has been worsening of bone density since the previous examination. Reference Information: The T-score is the number of standard deviations above or below the standard w hich is normal for young adults at their peak bone mineral density. The World Health Organization (WHO) interprets the T-scores as follows: Above -1 Normal bone density Between -1 and -2.5 Osteopen ia Equal to / or below -2.5 Osteoporosis As a practical clinical guideline, osteopenia may be graded as follows: Mild -1 through -1.5 Moderate -1.6 through -2.0 Severe -2.1 through -2.4 The Z-sc ore is the number of standard deviations above or below age-matched controls. A Z-score of less than -1.5 would be considered abnormal. References: 1. NIH Osteoporosis and Related Bone Diseases http ://www.osteo.org 2. International Society for Clinical Densitometry http://www.iscd.org 3. National Osteoporosis Foundation http://www.nof.org Electronically Signed: Rogelio Kumar MD at 13:55 EST Tel [phone], Service support [phone], CC: George Bueno MD Heel Splitter: Signed 12-Aug-2013 Bilat Scrn Digital & CAD Result: Comments: See Note; NOTES: [facility] Imaging Services [address] [place] [address] Breast Imaging Report MR#: [id number] Acct: [id number] Name: GAYATRI NAQVI Rep #: [id number] : 1935 F 77 From: Rogelio Kumar MD PCP: George Bueno MD Status: REG I Exam# [id number] Ordering Dr: George Bueno MD MAMMOGRAPHY - BILATERAL SCREENING REASON FOR EXAM: Female, 77 years old. Routine annual screening examination. PERTINENT HISTORY: Non-contributory. TECHNIQUE: Digital examination. Mediolateral oblique (MLO) and craniocaudad (CC) views of both kelly asts were obtained. CAD: CAD was performed on this study. COMPARISON: Comparison is made with prior study dated March 28, 2012 and January 25, 2011. FINDINGS: Th e breast composition is composed of scattered fibroglandular tissues ranging from 25% to 50% of the breast. There are no dominant masses or suspicious calcifications. No other significant abnormali ties are identified. There has been no significant change since the prior study. IMPRESSION: Stable bilateral screening mammogram. Yearly follow-up recommended. (A) ASSESSMENT CATEGORY: BIRADS Category 2: Benign finding(s). A letter regarding these results will be sent to the patient by the facility within 30 days. Gregg roximately 10% of breast cancers are not detected by mammography. A normal mammogram should not delay biopsy of a clinically suspicious abnormality. Signed: Rogelio Kumar M.D. August 12 013 at 11:28:57 AM EST [phone] Electronically Signed GP/GP If you are the referring physician and would like to consult with the radiologist who provided this interpretation, please contact Rogelio Kumar M.D. at [phone]. If this radiologist is unavailable, you will be directed to another radiologist to assist. If you are a patient with a question regarding this report, pleas e contact your referring physician directly. Professional Interpretation Provided By: [employer], Phone , These documents contain legally protected and confidential health information intended only for the use of the individual or entity named above. If you are not the intended recipient, you are hereby notified that any disclosure, copying, distribution, or oth er use of these documents is strictly prohibited. If you have received this information in error, please notify the sender immediately and arrange for the return or destruction of these documents. CC: George Bueno MD Heel Splitter: Signed Immunization Name Dates Details Zoster (shingles) Comments: 2011 at [facility] Family History Unknown Family Member Name Dates Details Brother 1 Comments: leukemia Status: Active Father Comments: HTN & GLAUCOMA, CAD later in life. Status: Active Mother Comments: HTN Status: Active Social History Name Dates Details Alcohol Use Comments: Occasional alcohol use, Drinks wine occassionally Status: Active Caffeine Use Comments: 4 cups coffee qd Status: Active Current Work/Study Status Comments: Retired Status: Active Exercise History Comments: Light Status: Active Living Situation: Lives alone. Comments: spouse-- 12-09 Status: Active No Drug Use Status: Active Non Smoker/No Tobacco Use Status: Active Tobacco use: Never smoker. Status: Active Smoking Status Name Dates Details Never smoker Vital Signs Date Test Result Details :47 Temperature 97.4 f Comments: Method: Temporal Pulse 98 /min Comments: Pattern: Regular Respiration Rate 17 /min Comments: Pattern: Unlabored O2 SAT 95 % Comments: Room air BP Systolic 140 mm[Hg] Comments: Patient Position: Sitting; Cuff Location: Left Arm; Cuff Size: Standard BP Diastolic 82 mm[Hg] Comments: Patient Position: Sitting; Cuff Location: Left Arm; Cuff Size: Standard Weight 139 lb Height 60 in Body Mass Index Calculated 27.15 kg/m2 Body Surface Area Calculated 1.6 m2 :07 Temperature 97.4 f Comments: Method: Temporal Pulse 95 /min Comments: Pattern: Regular Respiration Rate 18 /min Comments: Pattern: Unlabored O2 SAT 96 % Comments: Room air BP Systolic 138 mm[Hg] Comments: Patient Position: Sitting; Cuff Location: Left Arm; Cuff Size: Standard BP Diastolic 68 mm[Hg] Comments: Patient Position: Sitting; Cuff Location: Left Arm; Cuff Size: Standard Weight 141 lb Height 60 in Body Mass Index Calculated 27.54 kg/m2 Body Surface Area Calculated 1.61 m2 :08 Temperature 97.4 f Comments: Method: Temporal Pulse 91 /min Comments: Pattern: Regular Respiration Rate 18 /min Comments: Pattern: Unlabored O2 SAT 95 % Comments: Room air BP Systolic 128 mm[Hg] Comments: Patient Position: Sitting; Cuff Location: Left Arm; Cuff Size: Standard BP Diastolic 76 mm[Hg] Comments: Patient Position: Sitting; Cuff Location: Left Arm; Cuff Size: Standard Weight 141 lb Height 60 in Body Mass Index Calculated 27.54 kg/m2 Body Surface Area Calculated 1.61 m2 :35 Temperature 97.3 f Comments: Method: Temporal Pulse 85 /min Comments: Pattern: Regular Respiration Rate 16 /min Comments: Pattern: Unlabored O2 SAT 96 % Comments: Room air BP Systolic 118 mm[Hg] Comments: Patient Position: Sitting; Cuff Location: Left Arm; Cuff Size: Standard BP Diastolic 60 mm[Hg] Comments: Patient Position: Sitting; Cuff Location: Left Arm; Cuff Size: Standard Weight 142.125 lb Height 60 in Body Mass Index Calculated 27.76 kg/m2 Body Surface Area Calculated 1.61 m2 :19 Temperature 97.4 f Comments: Method: Temporal Pulse 104 /min Comments: Pattern: Regular Respiration Rate 16 /min Comments: Pattern: Unlabored O2 SAT 96 % Comments: Room air BP Systolic 122 mm[Hg] Comments: Patient Position: Sitting; Cuff Location: Left Arm; Cuff Size: Standard BP Diastolic 72 mm[Hg] Comments: Patient Position: Sitting; Cuff Location: Left Arm; Cuff Size: Standard Weight 143 lb Height 60 in Body Mass Index Calculated 27.93 kg/m2 Body Surface Area Calculated 1.62 m2 :52 Temperature 97.1 f Pulse 111 /min Comments: Pattern: Regular Respiration Rate 18 /min Comments: Pattern: Unlabored O2 SAT 95 % Comments: Room air BP Systolic 142 mm[Hg] Comments: Patient Position: Sitting; Cuff Location: Left Arm; Cuff Size: Standard BP Diastolic 70 mm[Hg] Comments: Patient Position: Sitting; Cuff Location: Left Arm; Cuff Size: Standard Weight 146 lb Height 60 in Body Mass Index Calculated 28.51 kg/m2 Body Surface Area Calculated 1.63 m2 :48 Temperature 98.4 f Comments: Method: Temporal Pulse 56 /min Comments: Pattern: Regular Respiration Rate 16 /min Comments: Pattern: Unlabored O2 SAT 98 % Comments: Room air BP Systolic 130 mm[Hg] Comments: Patient Position: Sitting; Cuff Location: Left Arm; Cuff Size: Standard BP Diastolic 76 mm[Hg] Comments: Patient Position: Sitting; Cuff Location: Left Arm; Cuff Size: Standard Weight 146 lb Height 60 in Body Mass Index Calculated 28.51 kg/m2 Body Surface Area Calculated 1.63 m2 :06 Temperature 97 f Pulse 74 /min Comments: Pattern: Regular Respiration Rate 16 /min Comments: Pattern: Unlabored O2 SAT 98 % Comments: Room air BP Systolic 122 mm[Hg] Comments: Patient Position: Sitting; Cuff Location: Left Arm; Cuff Size: Standard BP Diastolic 64 mm[Hg] Comments: Patient Position: Sitting; Cuff Location: Left Arm; Cuff Size: Standard Weight 146 lb Height 60 in Body Mass Index Calculated 28.51 kg/m2 Body Surface Area Calculated 1.63 m2 :23 Temperature 97.4 f Pulse 93 /min Comments: Pattern: Regular Respiration Rate 18 /min Comments: Pattern: Unlabored O2 SAT 97 % Comments: Room air BP Systolic 130 mm[Hg] Comments: Patient Position: Sitting; Cuff Location: Left Arm; Cuff Size: Standard BP Diastolic 76 mm[Hg] Comments: Patient Position: Sitting; Cuff Location: Left Arm; Cuff Size: Standard Weight 146.5 lb Height 60 in Body Mass Index Calculated 28.61 kg/m2 Body Surface Area Calculated 1.64 m2 :58 Weight 146 lb :44 Temperature 96.8 f Comments: Method: Temporal Pulse 73 /min Comments: Pattern: Regular Respiration Rate 16 /min Comments: Pattern: Unlabored BP Systolic 122 mm[Hg] Comments: Patient Position: Sitting; Cuff Location: Left Arm; Cuff Size: Standard BP Diastolic 78 mm[Hg] Comments: Patient Position: Sitting; Cuff Location: Left Arm; Cuff Size: Standard Weight 146.5 lb Height 60 in Body Mass Index Calculated 28.61 kg/m2 Body Surface Area Calculated 1.64 m2 :54 Temperature 97.8 f Comments: Method: Temporal Pulse 69 /min Comments: Pattern: Regular Respiration Rate 16 /min Comments: Pattern: Unlabored O2 SAT 98 % Comments: Room air BP Systolic 124 mm[Hg] Comments: Patient Position: Sitting; Cuff Location: Left Arm; Cuff Size: Standard BP Diastolic 68 mm[Hg] Comments: Patient Position: Sitting; Cuff Location: Left Arm; Cuff Size: Standard Weight 150.5 lb Height 60 in Body Mass Index Calculated 29.39 kg/m2 Body Surface Area Calculated 1.65 m2 :52 Temperature 97.2 f Pulse 61 /min Comments: Pattern: Regular Respiration Rate 16 /min Comments: Pattern: Unlabored O2 SAT 94 % Comments: Room air BP Systolic 118 mm[Hg] Comments: Patient Position: Sitting; Cuff Location: Left Arm; Cuff Size: Standard BP Diastolic 78 mm[Hg] Comments: Patient Position: Sitting; Cuff Location: Left Arm; Cuff Size: Standard Weight 148.5 lb Height 60 in Body Mass Index Calculated 29 kg/m2 Body Surface Area Calculated 1.64 m2 :06 Temperature 98.1 f Pulse 79 /min Comments: Pattern: Regular Respiration Rate 17 /min Comments: Pattern: Unlabored O2 SAT 95 % Comments: Room air BP Systolic 118 mm[Hg] Comments: Patient Position: Sitting; Cuff Location: Left Arm; Cuff Size: Standard BP Diastolic 78 mm[Hg] Comments: Patient Position: Sitting; Cuff Location: Left Arm; Cuff Size: Standard Weight 146 lb Height 60 in Body Mass Index Calculated 28.51 kg/m2 Body Surface Area Calculated 1.63 m2 :08 Temperature 97.7 f Pulse 57 /min Comments: Pattern: Regular Respiration Rate 18 /min Comments: Pattern: Unlabored O2 SAT 98 % Comments: Room air BP Systolic 126 mm[Hg] Comments: Patient Position: Sitting; Cuff Location: Left Arm; Cuff Size: Standard BP Diastolic 82 mm[Hg] Comments: Patient Position: Sitting; Cuff Location: Left Arm; Cuff Size: Standard Weight 147 lb Height 60 in Body Mass Index Calculated 28.71 kg/m2 Body Surface Area Calculated 1.64 m2 :30 Temperature 98 f Pulse 98 /min Comments: Pattern: Regular Respiration Rate 16 /min Comments: Pattern: Unlabored O2 SAT 97 % Comments: Room air BP Systolic 124 mm[Hg] Comments: Patient Position: Sitting; Cuff Location: Left Arm; Cuff Size: Standard BP Diastolic 72 mm[Hg] Comments: Patient Position: Sitting; Cuff Location: Left Arm; Cuff Size: Standard Weight 146 lb Height 60 in Body Mass Index Calculated 28.51 kg/m2 Body Surface Area Calculated 1.63 m2 :56 Temperature 97.6 f Comments: Method: Temporal Pulse 82 /min Comments: Pattern: Regular Respiration Rate 18 /min Comments: Pattern: Unlabored O2 SAT 97 % Comments: Room air BP Systolic 142 mm[Hg] Comments: Patient Position: Sitting; Cuff Location: Left Arm; Cuff Size: Standard BP Diastolic 80 mm[Hg] Comments: Patient Position: Sitting; Cuff Location: Left Arm; Cuff Size: Standard Weight 149 lb Height 60 in Body Mass Index Calculated 29.1 kg/m2 Body Surface Area Calculated 1.65 m2 :57 Temperature 97.9 f Comments: Method: Temporal Pulse 56 /min Comments: Pattern: Regular Respiration Rate 18 /min Comments: Pattern: Unlabored O2 SAT 96 % Comments: Room air BP Systolic 110 mm[Hg] Comments: Patient Position: Sitting; Cuff Location: Left Arm; Cuff Size: Standard BP Diastolic 70 mm[Hg] Comments: Patient Position: Sitting; Cuff Location: Left Arm; Cuff Size: Standard Weight 149 lb Height 60 in Body Mass Index Calculated 29.1 kg/m2 Body Surface Area Calculated 1.65 m2 :15 Temperature 97.1 f Comments: Method: Oral Pulse 67 /min Comments: Pattern: Regular Respiration Rate 16 /min Comments: Pattern: Unlabored O2 SAT 98 % Comments: Room air BP Systolic 150 mm[Hg] Comments: Patient Position: Sitting; Cuff Location: Left Arm; Cuff Size: Standard BP Diastolic 72 mm[Hg] Comments: Patient Position: Sitting; Cuff Location: Left Arm; Cuff Size: Standard Weight 149 lb Height 60 in Body Mass Index Calculated 29.1 kg/m2 Body Surface Area Calculated 1.65 m2 :43 Temperature 97.8 f Comments: Method: Temporal Pulse 58 /min Comments: Pattern: Irregular Respiration Rate 18 /min Comments: Pattern: Unlabored O2 SAT 98 % Comments: Room air BP Systolic 118 mm[Hg] Comments: Patient Position: Sitting; Cuff Location: Left Arm; Cuff Size: Standard BP Diastolic 64 mm[Hg] Comments: Patient Position: Sitting; Cuff Location: Left Arm; Cuff Size: Standard Weight 145 lb Height 60 in Body Mass Index Calculated 28.32 kg/m2 Body Surface Area Calculated 1.63 m2 :05 Comments: 2/3 whisper Temperature 98.1 f Comments: Method: Temporal Pulse 58 /min Comments: Pattern: Regular Respiration Rate 16 /min Comments: Pattern: Unlabored O2 SAT 97 % Comments: Room air BP Systolic 110 mm[Hg] Comments: Patient Position: Sitting; Cuff Location: Left Arm; Cuff Size: Standard BP Diastolic 60 mm[Hg] Comments: Patient Position: Sitting; Cuff Location: Left Arm; Cuff Size: Standard Weight 145 lb Height 60 in Body Mass Index Calculated 28.32 kg/m2 Body Surface Area Calculated 1.63 m2 :10 Temperature 98.2 f Comments: Method: Temporal Pulse 76 /min Comments: Pattern: Regular Respiration Rate 16 /min Comments: Pattern: Unlabored O2 SAT 97 % Comments: Room air BP Systolic 126 mm[Hg] Comments: Patient Position: Sitting; Cuff Location: Left Arm; Cuff Size: Standard BP Diastolic 74 mm[Hg] Comments: Patient Position: Sitting; Cuff Location: Left Arm; Cuff Size: Standard Weight 145 lb Height 60 in Body Mass Index Calculated 28.32 kg/m2 Body Surface Area Calculated 1.63 m2 :07 Temperature 99.1 f Comments: Method: Oral Pulse 104 /min Comments: Pattern: Regular Respiration Rate 20 /min O2 SAT 80 % Comments: Room air BP Systolic 138 mm[Hg] Comments: Patient Position: Sitting; Cuff Location: Left Arm; Cuff Size: Standard BP Diastolic 78 mm[Hg] Comments: Patient Position: Sitting; Cuff Location: Left Arm; Cuff Size: Standard Weight 147.6 lb Height 60 in Body Mass Index Calculated 28.83 kg/m2 Body Surface Area Calculated 1.64 m2 :31 Temperature 98.4 f Comments: Method: Temporal Pulse 63 /min Comments: Pattern: Regular Respiration Rate 15 /min Comments: Pattern: Unlabored O2 SAT 96 % Comments: Room air BP Systolic 120 mm[Hg] Comments: Patient Position: Sitting; Cuff Location: Left Arm; Cuff Size: Standard BP Diastolic 72 mm[Hg] Comments: Patient Position: Sitting; Cuff Location: Left Arm; Cuff Size: Standard Weight 147.6 lb Height 60 in Body Mass Index Calculated 28.83 kg/m2 Body Surface Area Calculated 1.64 m2 :34 Comments: whisper test 11/04 Temperature 97.2 f Comments: Method: Temporal Pulse 54 /min Comments: Pattern: Regular Respiration Rate 16 /min Comments: Pattern: Unlabored O2 SAT 98 % Comments: Room air BP Systolic 124 mm[Hg] Comments: Patient Position: Sitting; Cuff Location: Left Arm; Cuff Size: Standard BP Diastolic 76 mm[Hg] Comments: Patient Position: Sitting; Cuff Location: Left Arm; Cuff Size: Standard Weight 146 lb Height 60 in Body Mass Index Calculated 28.51 kg/m2 Body Surface Area Calculated 1.63 m2 :36 Temperature 97.9 f Comments: Method: Temporal Pulse 61 /min Comments: Pattern: Regular Respiration Rate 16 /min Comments: Pattern: Unlabored O2 SAT 95 % Comments: Room air BP Systolic 124 mm[Hg] Comments: Patient Position: Sitting; Cuff Location: Left Arm; Cuff Size: Standard BP Diastolic 78 mm[Hg] Comments: Patient Position: Sitting; Cuff Location: Left Arm; Cuff Size: Standard Weight 146 lb Height 60 in Body Mass Index Calculated 28.51 kg/m2 Body Surface Area Calculated 1.63 m2 :24 Temperature 98 f Comments: Method: Oral Pulse 64 /min Comments: Pattern: Regular Respiration Rate 18 /min Comments: Pattern: Unlabored BP Systolic 142 mm[Hg] Comments: Patient Position: Sitting; Cuff Location: Left Arm; Cuff Size: Standard BP Diastolic 80 mm[Hg] Comments: Patient Position: Sitting; Cuff Location: Left Arm; Cuff Size: Standard Weight 145 lb Height 60 in Body Mass Index Calculated 28.32 kg/m2 Body Surface Area Calculated 1.63 m2 :58 Temperature 98.4 f Comments: Method: Oral Pulse 51 /min Comments: Pattern: Regular Respiration Rate 16 /min Comments: Pattern: Unlabored O2 SAT 99 % Comments: Room air BP Systolic 118 mm[Hg] Comments: Patient Position: Sitting; Cuff Location: Left Arm; Cuff Size: Standard BP Diastolic 62 mm[Hg] Comments: Patient Position: Sitting; Cuff Location: Left Arm; Cuff Size: Standard Weight 143.0375 lb Height 60 in Body Mass Index Calculated 27.93 kg/m2 Body Surface Area Calculated 1.62 m2 :44 Temperature 98.3 f Pulse 50 /min Comments: Pattern: Regular Respiration Rate 18 /min Comments: Pattern: Unlabored BP Systolic 162 mm[Hg] Comments: Patient Position: Sitting; Cuff Location: Left Arm; Cuff Size: Standard BP Diastolic 72 mm[Hg] Comments: Patient Position: Sitting; Cuff Location: Left Arm; Cuff Size: Standard Weight 146.0375 lb Height 60 in Body Mass Index Calculated 28.52 kg/m2 Body Surface Area Calculated 1.63 m2 :40 Temperature 98.1 f Comments: Method: Oral Pulse 64 /min Comments: Pattern: Regular Respiration Rate 16 /min Comments: Pattern: Unlabored BP Systolic 126 mm[Hg] Comments: Patient Position: Sitting; Cuff Location: Left Arm; Cuff Size: Standard BP Diastolic 74 mm[Hg] Comments: Patient Position: Sitting; Cuff Location: Left Arm; Cuff Size: Standard Weight 146.0375 lb Height 60 in Body Mass Index Calculated 28.52 kg/m2 Body Surface Area Calculated 1.63 m2 :24 Temperature 98.5 f Comments: Method: Oral Pulse 64 /min Comments: Pattern: Regular Respiration Rate 18 /min Comments: Pattern: Unlabored BP Systolic 120 mm[Hg] Comments: Patient Position: Sitting; Cuff Location: Left Arm; Cuff Size: Standard BP Diastolic 78 mm[Hg] Comments: Patient Position: Sitting; Cuff Location: Left Arm; Cuff Size: Standard Weight 146.0375 lb Height 60 in Body Mass Index Calculated 28.52 kg/m2 Body Surface Area Calculated 1.63 m2 :21 Temperature 97.8 f Comments: Method: Oral Pulse 60 /min Comments: Pattern: Regular Respiration Rate 20 /min Comments: Pattern: Unlabored BP Systolic 120 mm[Hg] Comments: Patient Position: Sitting; Cuff Location: Left Arm; Cuff Size: Standard BP Diastolic 76 mm[Hg] Comments: Patient Position: Sitting; Cuff Location: Left Arm; Cuff Size: Standard Weight 148 lb Height 60 in Body Mass Index Calculated 28.9 kg/m2 Body Surface Area Calculated 1.64 m2 :40 Temperature 97.9 f Comments: Method: Oral Pulse 48 /min Comments: Pattern: Regular Respiration Rate 24 /min Comments: Pattern: Unlabored O2 SAT 94 % Comments: Room air BP Systolic 112 mm[Hg] Comments: Patient Position: Sitting; Cuff Location: Left Arm; Cuff Size: Standard BP Diastolic 74 mm[Hg] Comments: Patient Position: Sitting; Cuff Location: Left Arm; Cuff Size: Standard Weight 152 lb Height 60 in Body Mass Index Calculated 29.69 kg/m2 Body Surface Area Calculated 1.66 m2 :55 Temperature 97.9 f Comments: Method: Oral Pulse 52 /min Comments: Pattern: Regular Respiration Rate 20 /min Comments: Pattern: Unlabored O2 SAT 97 % Comments: Room air BP Systolic 124 mm[Hg] Comments: Patient Position: Sitting; Cuff Location: Left Arm; Cuff Size: Standard BP Diastolic 74 mm[Hg] Comments: Patient Position: Sitting; Cuff Location: Left Arm; Cuff Size: Standard Weight 152 lb Height 60 in Body Mass Index Calculated 29.69 kg/m2 Body Surface Area Calculated 1.66 m2 :49 Temperature 97.8 f Comments: Method: Oral Pulse 50 /min Comments: Pattern: Regular Respiration Rate 17 /min O2 SAT 97 % Comments: Room air BP Systolic 130 mm[Hg] Comments: Patient Position: Sitting; Cuff Location: Left Arm; Cuff Size: Standard BP Diastolic 68 mm[Hg] Comments: Patient Position: Sitting; Cuff Location: Left Arm; Cuff Size: Standard Weight 152.0625 lb Height 60 in Body Mass Index Calculated 29.7 kg/m2 Body Surface Area Calculated 1.66 m2 :16 Temperature 98.5 f Comments: Method: Oral Pulse 52 /min Comments: Pattern: Regular Respiration Rate 16 /min Comments: Pattern: Unlabored O2 SAT 95 % Comments: Room air BP Systolic 120 mm[Hg] Comments: Patient Position: Sitting; Cuff Location: Left Arm; Cuff Size: Large BP Diastolic 72 mm[Hg] Comments: Patient Position: Sitting; Cuff Location: Left Arm; Cuff Size: Large Weight 149 lb Height 60 in Body Mass Index Calculated 29.1 kg/m2 Body Surface Area Calculated 1.65 m2 :04 Temperature 98.4 f Comments: Method: Oral Pulse 50 /min Comments: Pattern: Regular Respiration Rate 18 /min Comments: Pattern: Unlabored O2 SAT 96 % Comments: Room air BP Systolic 130 mm[Hg] Comments: Patient Position: Sitting; Cuff Location: Left Arm; Cuff Size: Standard BP Diastolic 70 mm[Hg] Comments: Patient Position: Sitting; Cuff Location: Left Arm; Cuff Size: Standard Weight 140 lb Height 60 in Body Mass Index Calculated 27.34 kg/m2 Body Surface Area Calculated 1.6 m2 :04 Temperature 97.1 f Comments: Method: Oral Pulse 56 /min Comments: Pattern: Regular Respiration Rate 18 /min Comments: Pattern: Wheezing O2 SAT 96 % Comments: Room air BP Systolic 142 mm[Hg] Comments: Patient Position: Sitting; Cuff Location: Left Arm; Cuff Size: Standard BP Diastolic 80 mm[Hg] Comments: Patient Position: Sitting; Cuff Location: Left Arm; Cuff Size: Standard Weight 140 lb Height 60 in Body Mass Index Calculated 27.34 kg/m2 Body Surface Area Calculated 1.6 m2 :02 Temperature 99 f Comments: Method: Oral Pulse 54 /min Comments: Pattern: Regular Respiration Rate 18 /min Comments: Pattern: Wheezing O2 SAT 96 % Comments: Room air BP Systolic 140 mm[Hg] Comments: Patient Position: Sitting; Cuff Location: Left Arm; Cuff Size: Standard BP Diastolic 78 mm[Hg] Comments: Patient Position: Sitting; Cuff Location: Left Arm; Cuff Size: Standard Weight 140 lb Height 60 in Body Mass Index Calculated 27.34 kg/m2 Body Surface Area Calculated 1.6 m2 :10 Temperature 98.1 f Comments: Method: Oral Pulse 48 /min Comments: Pattern: Regular Respiration Rate 18 /min Comments: Pattern: Unlabored BP Systolic 146 mm[Hg] Comments: Patient Position: Sitting; Cuff Location: Left Arm; Cuff Size: Standard BP Diastolic 80 mm[Hg] Comments: Patient Position: Sitting; Cuff Location: Left Arm; Cuff Size: Standard Weight 151 lb Height 60 in Body Mass Index Calculated 29.49 kg/m2 Body Surface Area Calculated 1.66 m2 :06 Temperature 97.6 f Comments: Method: Oral Pulse 54 /min Comments: Pattern: Regular Respiration Rate 18 /min Comments: Pattern: Unlabored BP Systolic 128 mm[Hg] Comments: Patient Position: Sitting; Cuff Location: Left Arm; Cuff Size: Standard BP Diastolic 78 mm[Hg] Comments: Patient Position: Sitting; Cuff Location: Left Arm; Cuff Size: Standard Weight 151 lb Height 60 in Body Mass Index Calculated 29.49 kg/m2 Body Surface Area Calculated 1.66 m2 :43 Temperature 98 f Comments: Method: Oral Pulse 52 /min Comments: Pattern: Regular Respiration Rate 20 /min Comments: Pattern: Unlabored BP Systolic 158 mm[Hg] Comments: Patient Position: Sitting; Cuff Location: Left Arm; Cuff Size: Standard BP Diastolic 80 mm[Hg] Comments: Patient Position: Sitting; Cuff Location: Left Arm; Cuff Size: Standard Weight 151 lb Height 60 in Body Mass Index Calculated 29.49 kg/m2 Body Surface Area Calculated 1.66 m2 :23 Comments: visual [id number]-WL-66/40, OS-20/40, B/L-20/40 Temperature 98.1 f Comments: Method: Oral Pulse 56 /min Comments: Pattern: Regular Respiration Rate 16 /min Comments: Pattern: Unlabored BP Systolic 130 mm[Hg] Comments: Patient Position: Sitting; Cuff Location: Left Arm; Cuff Size: Standard BP Diastolic 72 mm[Hg] Comments: Patient Position: Sitting; Cuff Location: Left Arm; Cuff Size: Standard Weight 151 lb Height 60 in Body Mass Index Calculated 29.49 kg/m2 Body Surface Area Calculated 1.66 m2 :54 Temperature 98.1 f Comments: Method: Oral Pulse 52 /min Comments: Pattern: Regular Respiration Rate 18 /min Comments: Pattern: Unlabored BP Systolic 134 mm[Hg] Comments: Patient Position: Sitting; Cuff Location: Left Arm; Cuff Size: Standard BP Diastolic 84 mm[Hg] Comments: Patient Position: Sitting; Cuff Location: Left Arm; Cuff Size: Standard Weight 148 lb Height 60.25 in Body Mass Index Calculated 28.66 kg/m2 Body Surface Area Calculated 1.65 m2 :33 Temperature 98.1 f Comments: Method: Oral Pulse 42 /min Comments: Pattern: Regular Respiration Rate 14 /min Comments: Pattern: Unlabored BP Systolic 120 mm[Hg] Comments: Patient Position: Sitting; Cuff Location: Left Arm; Cuff Size: Large BP Diastolic 70 mm[Hg] Comments: Patient Position: Sitting; Cuff Location: Left Arm; Cuff Size: Large Weight 148 lb Height 60.25 in Body Mass Index Calculated 28.66 kg/m2 Body Surface Area Calculated 1.65 m2 :30 Temperature 98.9 f Comments: Method: Oral Pulse 58 /min Comments: Pattern: Regular Respiration Rate 24 /min Comments: Pattern: Unlabored O2 SAT 98 % Comments: Room air BP Systolic 136 mm[Hg] Comments: Patient Position: Sitting; Cuff Location: Left Arm; Cuff Size: Standard BP Diastolic 84 mm[Hg] Comments: Patient Position: Sitting; Cuff Location: Left Arm; Cuff Size: Standard Weight 146 lb Height 60 in Body Mass Index Calculated 28.51 kg/m2 Body Surface Area Calculated 1.63 m2 :37 Temperature 98.4 f Comments: Method: Oral Pulse 58 /min Comments: Pattern: Regular Respiration Rate 20 /min Comments: Pattern: Unlabored BP Systolic 140 mm[Hg] Comments: Patient Position: Sitting; Cuff Location: Left Arm; Cuff Size: Standard BP Diastolic 80 mm[Hg] Comments: Patient Position: Sitting; Cuff Location: Left Arm; Cuff Size: Standard Weight 146 lb Height 60 in Body Mass Index Calculated 28.51 kg/m2 Body Surface Area Calculated 1.63 m2 :06 Temperature 97.9 f Comments: Method: Oral Pulse 60 /min Comments: Pattern: Regular Respiration Rate 18 /min Comments: Pattern: Unlabored BP Systolic 120 mm[Hg] Comments: Patient Position: Sitting; Cuff Location: Left Arm; Cuff Size: Standard BP Diastolic 74 mm[Hg] Comments: Patient Position: Sitting; Cuff Location: Left Arm; Cuff Size: Standard Weight 148 lb :52 O2 SAT 98 % Comments: Room air :51 Pulse 42 /min Comments: Pattern: Regular BP Systolic 140 mm[Hg] Comments: Patient Position: Standing; Cuff Location: Left Arm; Cuff Size: Standard BP Diastolic 72 mm[Hg] Comments: Patient Position: Standing; Cuff Location: Left Arm; Cuff Size: Standard :51 Pulse 40 /min Comments: Pattern: Regular BP Systolic 142 mm[Hg] Comments: Patient Position: Sitting; Cuff Location: Left Arm; Cuff Size: Standard BP Diastolic 100 mm[Hg] Comments: Patient Position: Sitting; Cuff Location: Left Arm; Cuff Size: Standard :50 Pulse 48 /min Comments: Pattern: Regular BP Systolic 160 mm[Hg] Comments: Patient Position: Supine; Cuff Location: Left Arm; Cuff Size: Standard BP Diastolic 130 mm[Hg] Comments: Patient Position: Supine; Cuff Location: Left Arm; Cuff Size: Standard :45 Temperature 97.9 f Comments: Method: Oral Pulse 68 /min Comments: Pattern: Regular Respiration Rate 18 /min Comments: Pattern: Unlabored BP Systolic 114 mm[Hg] Comments: Patient Position: Sitting; Cuff Location: Left Arm; Cuff Size: Standard BP Diastolic 74 mm[Hg] Comments: Patient Position: Sitting; Cuff Location: Left Arm; Cuff Size: Standard Weight 148 lb :20 Temperature 97.4 f Comments: Method: Oral Pulse 62 /min Comments: Pattern: Regular Respiration Rate 16 /min Comments: Pattern: Unlabored BP Systolic 124 mm[Hg] Comments: Patient Position: Sitting; Cuff Location: Left Arm; Cuff Size: Standard BP Diastolic 72 mm[Hg] Comments: Patient Position: Sitting; Cuff Location: Left Arm; Cuff Size: Standard Weight 146.25 lb :05 Temperature 98.5 f Pulse 52 /min Comments: Pattern: Regular Respiration Rate 18 /min Comments: Pattern: Unlabored O2 SAT 95 % Comments: Room air BP Systolic 146 mm[Hg] Comments: Patient Position: Sitting; Cuff Location: Left Arm; Cuff Size: Standard BP Diastolic 74 mm[Hg] Comments: Patient Position: Sitting; Cuff Location: Left Arm; Cuff Size: Standard :50 Pulse 60 /min Comments: Pattern: Regular Respiration Rate 18 /min Comments: Pattern: Unlabored BP Systolic 110 mm[Hg] Comments: Patient Position: Sitting; Cuff Location: Left Arm; Cuff Size: Standard BP Diastolic 76 mm[Hg] Comments: Patient Position: Sitting; Cuff Location: Left Arm; Cuff Size: Standard Weight 139 lb :25 Temperature 98.2 f Comments: Method: Oral Pulse 70 /min Comments: Pattern: Regular Respiration Rate 18 /min Comments: Pattern: Unlabored BP Systolic 120 mm[Hg] Comments: Patient Position: Sitting; Cuff Location: Left Arm; Cuff Size: Standard BP Diastolic 78 mm[Hg] Comments: Patient Position: Sitting; Cuff Location: Left Arm; Cuff Size: Standard Weight 139 lb :12 Pulse 68 /min Comments: Pattern: Regular Respiration Rate 18 /min Comments: Pattern: Unlabored BP Systolic 140 mm[Hg] Comments: Patient Position: Sitting; Cuff Location: Left Arm; Cuff Size: Standard BP Diastolic 80 mm[Hg] Comments: Patient Position: Sitting; Cuff Location: Left Arm; Cuff Size: Standard Weight 141 lb :19 Temperature 98.7 f Comments: Method: Oral Pulse 52 /min Comments: Pattern: Regular Respiration Rate 16 /min Comments: Pattern: Unlabored BP Systolic 140 mm[Hg] Comments: Patient Position: Supine; Cuff Location: Left Arm; Cuff Size: Standard BP Diastolic 82 mm[Hg] Comments: Patient Position: Supine; Cuff Location: Left Arm; Cuff Size: Standard Weight 137 lb Height 60 in Body Mass Index Calculated 26.76 kg/m2 Body Surface Area Calculated 1.59 m2 Head Circumference 0.00 cm :40 Pulse 70 /min Comments: Pattern: Regular Respiration Rate 16 /min Comments: Pattern: Unlabored BP Systolic 108 mm[Hg] Comments: Patient Position: Sitting; Cuff Location: Left Arm; Cuff Size: Standard BP Diastolic 72 mm[Hg] Comments: Patient Position: Sitting; Cuff Location: Left Arm; Cuff Size: Standard Weight 136 lb Height 0 in Head Circumference 0.00 cm :22 Pulse 70 /min Comments: Pattern: Regular Respiration Rate 16 /min Comments: Pattern: Unlabored BP Systolic 118 mm[Hg] Comments: Patient Position: Sitting; Cuff Location: Left Arm; Cuff Size: Standard BP Diastolic 78 mm[Hg] Comments: Patient Position: Sitting; Cuff Location: Left Arm; Cuff Size: Standard Weight 139 lb Height 0 in Head Circumference 0.00 cm :47 Temperature 98.4 f Comments: Method: Oral Pulse 68 /min Comments: Pattern: Regular Respiration Rate 16 /min Comments: Pattern: Unlabored BP Systolic 122 mm[Hg] Comments: Patient Position: Sitting; Cuff Location: Left Arm; Cuff Size: Standard BP Diastolic 80 mm[Hg] Comments: Patient Position: Sitting; Cuff Location: Left Arm; Cuff Size: Standard Weight 141 lb Height 0 in Head Circumference 0.00 cm :02 Pulse 68 /min Comments: Pattern: Regular Respiration Rate 16 /min Comments: Pattern: Unlabored BP Systolic 116 mm[Hg] Comments: Patient Position: Sitting; Cuff Location: Left Arm; Cuff Size: Standard BP Diastolic 78 mm[Hg] Comments: Patient Position: Sitting; Cuff Location: Left Arm; Cuff Size: Standard Weight 141 lb Height 0 in Head Circumference 0.00 cm :18 Temperature 98 f Comments: Method: Oral Pulse 70 /min Comments: Pattern: Regular Respiration Rate 16 /min Comments: Pattern: Unlabored BP Systolic 138 mm[Hg] Comments: Patient Position: Sitting; Cuff Location: Left Arm; Cuff Size: Standard BP Diastolic 74 mm[Hg] Comments: Patient Position: Sitting; Cuff Location: Left Arm; Cuff Size: Standard Weight 140.0562 lb Height 0 in Head Circumference 0.00 cm :51 Temperature 98.3 f Comments: Method: Oral Pulse 68 /min Comments: Pattern: Regular Respiration Rate 16 /min Comments: Pattern: Unlabored BP Systolic 120 mm[Hg] Comments: Patient Position: Sitting; Cuff Location: Left Arm; Cuff Size: Standard BP Diastolic 78 mm[Hg] Comments: Patient Position: Sitting; Cuff Location: Left Arm; Cuff Size: Standard Weight 139 lb Height 0 in Head Circumference 0.00 cm :32 Temperature 98.3 f Comments: Method: Oral Pulse 58 /min Comments: Pattern: Regular Respiration Rate 16 /min Comments: Pattern: Unlabored BP Systolic 120 mm[Hg] Comments: Patient Position: Sitting; Cuff Location: Left Arm; Cuff Size: Standard BP Diastolic 80 mm[Hg] Comments: Patient Position: Sitting; Cuff Location: Left Arm; Cuff Size: Standard Weight 0 lb Height 0 in Head Circumference 0.00 cm :54 Temperature 97.4 f Comments: Method: Oral Pulse 62 /min Comments: Pattern: Regular Respiration Rate 17 /min Comments: Pattern: Unlabored BP Systolic 124 mm[Hg] Comments: Patient Position: Sitting; Cuff Location: Left Arm; Cuff Size: Standard BP Diastolic 70 mm[Hg] Comments: Patient Position: Sitting; Cuff Location: Left Arm; Cuff Size: Standard Weight 133 lb Height 0 in Head Circumference 0.00 cm :52 Temperature 97.9 f Comments: Method: Oral Pulse 54 /min Comments: Pattern: Regular Respiration Rate 16 /min Comments: Pattern: Unlabored O2 SAT 98 % Comments: Room air BP Systolic 132 mm[Hg] Comments: Patient Position: Sitting; Cuff Location: Left Arm; Cuff Size: Standard BP Diastolic 68 mm[Hg] Comments: Patient Position: Sitting; Cuff Location: Left Arm; Cuff Size: Standard Weight 133 lb Height 0 in Head Circumference 0.00 cm :57 Temperature 98.2 f Comments: Method: Oral Pulse 68 /min Comments: Pattern: Regular Respiration Rate 18 /min Comments: Pattern: Unlabored BP Systolic 124 mm[Hg] Comments: Patient Position: Sitting; Cuff Location: Left Arm; Cuff Size: Standard BP Diastolic 84 mm[Hg] Comments: Patient Position: Sitting; Cuff Location: Left Arm; Cuff Size: Standard Weight 133 lb Height 0 in Head Circumference 0.00 cm :32 Temperature 97.8 f Comments: Method: Oral Pulse 48 /min Comments: Pattern: Regular Respiration Rate 16 /min Comments: Pattern: Unlabored BP Systolic 122 mm[Hg] Comments: Patient Position: Sitting; Cuff Location: Left Arm; Cuff Size: Standard BP Diastolic 78 mm[Hg] Comments: Patient Position: Sitting; Cuff Location: Left Arm; Cuff Size: Standard Weight 0 lb Height 0 in Head Circumference 0.00 cm :59 Temperature 98 f Comments: Method: Oral Pulse 42 /min Comments: Pattern: Regular Respiration Rate 16 /min Comments: Pattern: Unlabored BP Systolic 118 mm[Hg] Comments: Patient Position: Sitting; Cuff Location: Left Arm; Cuff Size: Standard BP Diastolic 62 mm[Hg] Comments: Patient Position: Sitting; Cuff Location: Left Arm; Cuff Size: Standard Weight 0 lb Height 0 in Head Circumference 0.00 cm :03 Temperature 97.7 f Comments: Method: Oral Pulse 70 /min Comments: Pattern: Regular Respiration Rate 20 /min Comments: Pattern: Unlabored BP Systolic 120 mm[Hg] Comments: Patient Position: Sitting; Cuff Location: Left Arm; Cuff Size: Standard BP Diastolic 76 mm[Hg] Comments: Patient Position: Sitting; Cuff Location: Left Arm; Cuff Size: Standard Weight 135 lb Height 0 in Head Circumference 0.00 cm :44 Temperature 97.7 f Comments: Method: Oral Pulse 72 /min Comments: Pattern: Regular Respiration Rate 20 /min Comments: Pattern: Unlabored BP Systolic 116 mm[Hg] Comments: Patient Position: Sitting; Cuff Location: Left Arm; Cuff Size: Standard BP Diastolic 78 mm[Hg] Comments: Patient Position: Sitting; Cuff Location: Left Arm; Cuff Size: Standard Weight 147 lb Height 60 in Body Mass Index Calculated 28.71 kg/m2 Body Surface Area Calculated 1.64 m2 Head Circumference 0.00 cm :49 Temperature 98 f Comments: Method: Oral Pulse 56 /min Comments: Pattern: Regular Respiration Rate 16 /min Comments: Pattern: Unlabored BP Systolic 124 mm[Hg] Comments: Patient Position: Sitting; Cuff Location: Left Arm; Cuff Size: Standard BP Diastolic 70 mm[Hg] Comments: Patient Position: Sitting; Cuff Location: Left Arm; Cuff Size: Standard Weight 142 lb Height 60 in Body Mass Index Calculated 27.73 kg/m2 Body Surface Area Calculated 1.61 m2 Head Circumference 0.00 cm Results Date Description Value Details [id number] Metabolic Panel, Comprehensive Comments: PATIENT NOT FASTINGPERFORMED BY: [facility] Tbsocv8364 [facility] [id number] ([id number]) ALT (SGPT) 28 [iU]/L (Normal) Range: 0-32 AST (SGOT) 30 [iU]/L (Normal) Range: 0-40 Alkaline Phosphatase 62 [iU]/L (Normal) Range: 39-117 Bilirubin, Total 0.3 mg/dL (Normal) Range: 0.0-1.2 A/G Ratio 2.1 (Normal) Range: 1.2-2.2 Globulin, Total 2.3 g/dL (Normal) Range: 1.5-4.5 Albumin 4.9 g/dL (Abnormal) Range: 3.5-4.7 Protein, Total 7.2 g/dL (Normal) Range: 6.0-8.5 Calcium 9.9 mg/dL (Normal) Range: 8.7-10.3 Carbon Dioxide, Total 29 mmol/L (Normal) Range: 20-29 Chloride 98 mmol/L (Normal) Range: 96-106 Potassium 3.9 mmol/L (Normal) Range: 3.5-5.2 Sodium 143 mmol/L (Normal) Range: 134-144 BUN/Creatinine Ratio 15 (Normal) Range: 12-28 eGFR If Africn Am 82 mL/min/1.73 (Normal) eGFR If NonAfricn Am 72 mL/min/1.73 (Normal) Creatinine 0.78 mg/dL (Normal) Range: 0.57-1.00 BUN 12 mg/dL (Normal) Range: 8-27 Glucose 90 mg/dL (Normal) Range: 65-99 27-Vez-653888:57 TSH (70228) Comments: PATIENT NOT FASTINGPERFORMED BY: [facility] [id number] TSH 1.450 {uIU/mL} (Normal) Range: 0.450-4.500 :57 CBC, Platelets & Auto Diff Comments: PATIENT NOT FASTINGPERFORMED BY: [facility] [id number] ([id number]) Immature Grans (Abs) 0.0 {x10E3/uL} (Normal) Range: 0.0-0.1 Immature Granulocytes 0 % (Normal) Baso (Absolute) 0.1 {x10E3/uL} (Normal) Range: 0.0-0.2 Eos (Absolute) 0.2 {x10E3/uL} (Normal) Range: 0.0-0.4 Monocytes(Absolute) 0.9 {x10E3/uL} (Normal) Range: 0.1-0.9 Lymphs (Absolute) 3.3 {x10E3/uL} (Abnormal) Range: 0.7-3.1 Neutrophils (Absolute) 3.3 {x10E3/uL} (Normal) Range: 1.4-7.0 Basos 1 % (Normal) Eos 3 % (Normal) Monocytes 11 % (Normal) Lymphs 43 % (Normal) Neutrophils 42 % (Normal) Platelets 378 {x10E3/uL} (Normal) Range: 150-379 RDW 12.9 % (Normal) Range: 12.3-15.4 MCHC 33.0 g/dL (Normal) Range: 31.5-35.7 MCH 30.7 pg (Normal) Range: 26.6-33.0 MCV 93 fL (Normal) Range: 79-97 Hematocrit 40.9 % (Normal) Range: 34.0-46.6 Hemoglobin 13.5 g/dL (Normal) Range: 11.1-15.9 RBC 4.40 {x10E6/uL} (Normal) Range: 3.77-5.28 WBC 7.8 {x10E3/uL} (Normal) Range: 3.4-10.8 68-Dza-604512:00 URINE CELINE CULTURE-IDENTIFICATN Comments: PATIENT NOT FASTINGPERFORMED BY: [facility]CoHam[facility] Health CenterVoyemy1360 [facility] [id number] Information: SRC:BREANN (23796) Result 1 MUG (Normal) Comments: Mixed urogenital flora10,000-25,000 colony forming units per mL Urine Final report (Normal) Culture,Comprehensive 29-Czt-[id number]:21 Urinalysis, Office (02288) UA - LEUKOCYTE ESTERASE Negative (Normal) UA - NITRITE Negative (Normal) URINE UROBILINGN JOSÉ MIGUEL TIMED Normal mg/dL (Normal) UA - PROTEIN Negative mg/dL (Normal) UA - PH 7 (Normal) UA - BLOOD Negative (Normal) UA - SPECIFIC GRAVITY 1.010 (Normal) UA - KETONES Moderate mg/dL (Normal) UA - BILIRUBIN Negative (Normal) UA - GLUCOSE Negative (Normal) 68-Biz-68237:30 Culture, Urine Comments: [facility] [address] [place], [place], [id number] CUUR See Note (Normal) Comments: Urine CultureORGANISM 1: Mixed Gram Positive OrganismsColony Count 11,000-25,000MIX CULTURE Mixed contaminants. Submit a new specimen if indicated. 89-Rhy-02533:30 Urinalysis, Complete Comments: How was Urine Obtained? [facility] [address] [place], [place], [id number] MUCUS, URINE 0 SEEN {/hpf} (Normal) BACTERIA 0 SEEN {/hpf} (Normal) TRANSITIONAL EP 0-5 SEEN {/hpf} (Normal) Range: 0-5 SQUAM EPI 0-5 SEEN {/hpf} (Normal) Range: 5-10 RBC-UA 0-5 SEEN {/hpf} (Normal) Range: 0-5 WBC 0-5 SEEN {/hpf} (Normal) Range: 0-5 LEUK ESTERASE 25 /ul (Abnormal) OCCULT BLOOD-UR Negative /ul (Normal) NITRITE UR Negative (Normal) UROBILI Normal mg/dL (Normal) PROT DIPSTX Negative mg/dL (Normal) pH UR 7.0 (Normal) Range: 5.0 - 8.0 SP.GR. DIPSTX 1.005 (Normal) Range: 1.002-1.030 KETONE UR Negative mg/dL (Normal) BILIRUBIN URINE Negative mg/dL (Normal) GLUCOSE, UR Normal mg/dL (Normal) CLARITY Clear (Normal) COLOR Yellow (Normal) 88-Hxl-[id number]:39 Culture, Urine Comments: [facility] [address] [place], [place], [id number] CUUR See Note (Normal) Comments: Urine CultureBelow infection level. ORGANISM 1: Mixed Gram Positive OrganismsColony Count 1000-10,000 77-Pqm-933737:39 Urinalysis, Complete Comments: How was Urine Obtained? HEALTH INFORMATION TECHNICIAN TO [facility] [address] [place], [place], [id number] MUCUS, URINE 0 SEEN {/hpf} (Normal) BACTERIA 0 SEEN {/hpf} (Normal) SQUAM EPI 0 SEEN {/hpf} (Normal) Range: 5-10 RBC-UA 0 SEEN {/hpf} (Normal) Range: 0-5 WBC 0-5 SEEN {/hpf} (Normal) Range: 0-5 LEUK ESTERASE 25 /ul (Abnormal) OCCULT BLOOD-UR 10 /ul (Abnormal) NITRITE UR Positive (Abnormal) UROBILI 1 mg/dL (Abnormal) PROT DIPSTX 15 mg/dL (Abnormal) pH UR 6.5 (Normal) Range: 5.0 - 8.0 SP.GR. DIPSTX 1.010 (Normal) Range: 1.002-1.030 KETONE UR Negative mg/dL (Normal) BILIRUBIN URINE 1 mg/dL (Abnormal) Comments: COLOR OF URINE MAY AFFECT DIPSTICK RESULTS. GLUCOSE, UR NEGATIVE mg/dL (Normal) CLARITY Clear (Normal) COLOR Yellow (Normal) :05 [id number] ([id number]) Comments: PATIENT WAS FASTINGPERFORMED BY: [employer] [facility] [id number] AFP, Serum, Tumor Marker 3.0 ng/mL (Normal) Range: 0.0-8.3 Comments: Kristi ECLIA methodology :05 TSH (THYROID STIMULATING Comments: PATIENT WAS FASTINGPERFORMED BY: [employer] [id number] HORMONE) (98928) TSH 2.890 {uIU/mL} (Normal) Range: 0.450-4.500 53-Ylp-11629:05 LIPID PANEL (77035) Comments: PATIENT WAS FASTINGPERFORMED BY: [employer] [facility] [id number] LDL/HDL Ratio 1.9 {ratio_units} (Normal) Range: 0.0-3.2 Comments: LDL/HDL Ratio Men Women 1/2 Avg.Risk 1.0 1.5 Av g.Risk 3.6 3.2 2X Avg.Risk 6.2 5.0 3X Avg.Risk 8.0 6.1 LDL Cholesterol Calc 120 mg/dL (Abnormal) Range: 0-99 VLDL Cholesterol Thanh 29 mg/dL (Normal) Range: 5-40 HDL Cholesterol 64 mg/dL (Normal) Triglycerides 146 mg/dL (Normal) Range: 0-149 Cholesterol, Total 213 mg/dL (Abnormal) Range: 100-199 :05 CBC, Platelets & Auto Diff Comments: PATIENT WAS FASTINGPERFORMED BY: [facility]fyHam[facility] Health CenterWsmmai5060 [facility] [id number] ([id number]) Immature Grans (Abs) 0.0 {x10E3/uL} (Normal) Range: 0.0-0.1 Immature Granulocytes 0 % (Normal) Baso (Absolute) 0.0 {x10E3/uL} (Normal) Range: 0.0-0.2 Eos (Absolute) 0.2 {x10E3/uL} (Normal) Range: 0.0-0.4 Monocytes(Absolute) 0.8 {x10E3/uL} (Normal) Range: 0.1-0.9 Lymphs (Absolute) 2.4 {x10E3/uL} (Normal) Range: 0.7-3.1 Neutrophils (Absolute) 2.9 {x10E3/uL} (Normal) Range: 1.4-7.0 Basos 1 % (Normal) Eos 4 % (Normal) Monocytes 12 % (Normal) Lymphs 38 % (Normal) Neutrophils 45 % (Normal) Platelets 365 {x10E3/uL} (Normal) Range: 150-379 RDW 13.3 % (Normal) Range: 12.3-15.4 MCHC 32.4 g/dL (Normal) Range: 31.5-35.7 MCH 29.8 pg (Normal) Range: 26.6-33.0 MCV 92 fL (Normal) Range: 79-97 Hematocrit 41.1 % (Normal) Range: 34.0-46.6 Hemoglobin 13.3 g/dL (Normal) Range: 11.1-15.9 RBC 4.46 {x10E6/uL} (Normal) Range: 3.77-5.28 WBC 6.4 {x10E3/uL} (Normal) Range: 3.4-10.8 77-Tbe-99061:05 Metabolic Panel, Comprehensive Comments: PATIENT WAS FASTINGPERFORMED BY: [facility]CoHam[facility] CenterZtssom9702 [facility] [id number] ([id number]) ALT (SGPT) 31 [iU]/L (Normal) Range: 0-32 AST (SGOT) 36 [iU]/L (Normal) Range: 0-40 Alkaline Phosphatase, S 54 [iU]/L (Normal) Range: 39-117 Bilirubin, Total 0.6 mg/dL (Normal) Range: 0.0-1.2 A/G Ratio 2.1 (Normal) Range: 1.2-2.2 Globulin, Total 2.2 g/dL (Normal) Range: 1.5-4.5 Albumin, Serum 4.6 g/dL (Normal) Range: 3.5-4.7 Protein, Total, Serum 6.8 g/dL (Normal) Range: 6.0-8.5 Calcium, Serum 9.7 mg/dL (Normal) Range: 8.7-10.3 Carbon Dioxide, Total 25 mmol/L (Normal) Range: 18-29 Chloride, Serum 101 mmol/L (Normal) Range: 96-106 Potassium, Serum 3.9 mmol/L (Normal) Range: 3.5-5.2 Sodium, Serum 144 mmol/L (Normal) Range: 134-144 BUN/Creatinine Ratio 18 (Normal) Range: 12-28 eGFR If Africn Am 71 mL/min/1.73 (Normal) eGFR If NonAfricn Am 62 mL/min/1.73 (Normal) Creatinine, Serum 0.88 mg/dL (Normal) Range: 0.57-1.00 BUN 16 mg/dL (Normal) Range: 8-27 Glucose, Serum 92 mg/dL (Normal) Range: 65-99 :49 Rapid Flu (05120 x 2) Influenza A Ag Negative (Normal) :59 THROAT CULTURE (01030) Comments: PATIENT NOT FASTINGPERFORMED BY: [employer] [facility] HospitalSwatchcloudECU [facility] [id number] Information: SRC:TH Result 1 RRF (Normal) Comments: Routine respiratory graeme Upper Respiratory Culture Final report (Normal) :54 Rapid Strep Test, Office (06419) Rapid Strep Test, Office Negative (Normal) 64-Soe-254139:47 HgA1C , Office (01981) HgA1C , Office 5.8 % (Normal) Range: 4.6 - 7.1 :53 HEPATITIS PANEL (97368) Comments: today; PATIENT NOT FASTINGPERFORMED BY: [employer] [facility] [id number] Hep C Virus Ab <0.1 {s/co_ratio} (Normal) Range: 0.0-0.9 Comments: Negative: < 0.8 Indeterminate: 0.8 - 0.9 Positive: > 0.9 . The CDC recommends that a positive HCV antibody result be followed up with a HCV Nucleic Acid Amplification test (387154). Hep B Core Ab, IgM Negative (Normal) HBsAg Screen Negative (Normal) Hep A Ab, IgM Negative (Normal) :53 HEPATIC FUNCTION PANEL Comments: today; PATIENT NOT FASTINGPERFORMED BY: [facility] [id number] (37024) ALT (SGPT) 29 [iU]/L (Normal) Range: 0-32 AST (SGOT) 30 [iU]/L (Normal) Range: 0-40 Alkaline Phosphatase, S 53 [iU]/L (Normal) Range: 39-117 Bilirubin, Direct 0.18 mg/dL (Normal) Range: 0.00-0.40 Bilirubin, Total 0.5 mg/dL (Normal) Range: 0.0-1.2 Albumin, Serum 4.7 g/dL (Normal) Range: 3.5-4.7 Protein, Total, Serum 6.5 g/dL (Normal) Range: 6.0-8.5 :53 KRTVY-VLNOWSOYANN-HZOOI (75092) Comments: today; PATIENT NOT FASTINGPERFORMED BY: [facility] [id number] AFP, Serum, Tumor Marker 3.0 ng/mL (Normal) Range: 0.0-8.3 Comments: Kristi ECLIA methodology 57-Lgf-691293:55 Basic Metabolic Profile (BMP) Comments: Order Date: 03/01/17Order Info: [id number] - *BMPOrder Info: [id number] - *T4 (Total)Comments: Reason:Order Info: [id number] - *TSHComments: Reason:[facility] [address] [place], [place], [phone] ; cardio GAP 6 (Normal) Range: 5-15 CO2 33.0 mmol/L (Abnormal) Range: 21.0-32.0 CL 103 mmol/L (Normal) Range: 98-107 K 3.6 mmol/L (Normal) Range: 3.5-5.1 NA 142 mmol/L (Normal) Range: 136-145 CA 9.4 mg/dL (Normal) Range: 8.5-10.1 BUN/CRE 17.3 {RATIO} (Normal) Range: 10-20 EST GFR - AA 81 mL/min (Normal) Comments: GFR Calc EST GFR 67 mL/min (Normal) Comments: Non- GFR Calc CREAT,SERUM 0.87 mg/dL (Normal) Range: 0.55-1.02 Comments: The validity of the calculated GFR AND GFRAA in patients over70 years has not been determined. Clinical correlation isessential. BUN 15 mg/dL (Normal) Range: 7-18 GLU 96 mg/dL (Normal) Range: 70-110 54-Qlc-797601:55 CBC-Complete Blood Cnt No Diff Comments: Order Date: 03/01/17Order Info: [id number] - *CBC without DiffComments: Reason:[facility] [address] [place], [place], [phone] MPV 9.6 fL (Normal) Range: 6.2-12.0 PLT 353 K/mm3 (Normal) Range: 150-450 RDW SD 43.0 fL (Normal) Range: 35.1-43.9 RDW CV 12.5 % (Normal) Range: 11.6-14.6 MCHC 31.4 {g/gl} (Abnormal) Range: 32-36 MCH 29.8 pg (Normal) Range: 27.0-32.0 MCV 94.9 fL (Normal) Range: 81-99 HCT 42.4 % (Normal) Range: 37-47 HGB 13.3 g/dL (Normal) Range: 12.0-15.0 RBC 4.47 {M/mm3} (Normal) Range: 4.2-5.4 WBC 7.2 K/mm3 (Normal) Range: 4.4-11.0 09-Cxi-511926:55 T4 Total, Thyroxin Comments: Order Date: 03/01/17Order Info: [id number] - *BMPOrder Info: [id number] - *T4 (Total)Comments: Reason:Order Info: [id number] - *TSHComments: Reason:[facility] [address] [place], [address] T4 THYROXIN 9.3 ug/dL (Normal) Range: 4.8-13.9 09-Rtz-760984:55 Thyroid Stim Hormone (TSH) Comments: Order Date: 03/01/17Order Info: [id number] - *BMPOrder Info: [id number] - *T4 (Total)Comments: Reason:Order Info: [id number] - *TSHComments: Reason:[facility] [address] [place], [place], [address] TSH 1.33 {uIU/mL} (Normal) Range: 0.358-3.74 9-Ube-451735:55 Urinalysis, Office (62575) UA - LEUKOCYTE ESTERASE Negative (Normal) UA - NITRITE Negative (Normal) URINE UROBILINGN JOSÉ MIGUEL TIMED Normal mg/dL (Normal) UA - PROTEIN Negative mg/dL (Normal) UA - PH 7.5 (Normal) UA - BLOOD Negative (Normal) UA - SPECIFIC GRAVITY 1.020 (Normal) UA - KETONES Negative mg/dL (Normal) UA - BILIRUBIN Negative (Normal) UA - GLUCOSE Negative (Normal) 8-Jah-778400:17 URINE CELINE CULTURE-JOSÉ MIGUEL COL Comments: PATIENT NOT FASTINGPERFORMED BY: [facility] Gmmcxc5143 [facility] [id number] Information: SRC:UC COUNT (70317) Result 1 MUG (Normal) Comments: Mixed urogenital flora25,000-50,000 colony forming units per mL Urine Final report (Normal) Culture,Comprehensive 6-Wrm-839131:05 Urinalysis, Office (51839) UA - LEUKOCYTE ESTERASE Small (Normal) UA - NITRITE Negative (Normal) URINE UROBILINGN JOSÉ MIGUEL TIMED Normal mg/dL (Normal) UA - PROTEIN Negative mg/dL (Normal) UA - PH 7 (Normal) UA - BLOOD Negative (Normal) UA - SPECIFIC GRAVITY 1.015 (Normal) UA - KETONES Small mg/dL (Normal) UA - BILIRUBIN Small (Normal) UA - GLUCOSE Negative (Normal) 07-Nov-20160:00 Culture, Urine Comments: [facility] [address] [place], [address] CUUR See Note (Normal) Comments: Urine CultureCulture exhibits no growth. :45 TSH (16436) Comments: PATIENT WAS FASTINGPERFORMED BY: [facility]6[address] [facility] [id number] TSH 2.950 {uIU/mL} (Normal) Range: 0.450-4.500 :45 Lipid Panel (73000) Comments: PATIENT WAS FASTINGPERFORMED BY: [facility]6[address] [facility] [id number]; OV 08/23 LDL/HDL Ratio 2.2 {ratio_units} (Normal) Range: 0.0-3.2 Comments: LDL/HDL Ratio Men Women 1/2 Avg.Risk 1.0 1.5 Av g.Risk 3.6 3.2 2X Avg.Risk 6.2 5.0 3X Avg.Risk 8.0 6.1 LDL Cholesterol Calc 138 mg/dL (Abnormal) Range: 0-99 VLDL Cholesterol Thanh 31 mg/dL (Normal) Range: 5-40 HDL Cholesterol 62 mg/dL (Normal) Comments: According to ATP-III Guidelines, HDL-C >59 mg/dL is considered anegative risk factor for CHD. Triglycerides 153 mg/dL (Abnormal) Range: 0-149 Cholesterol, Total 231 mg/dL (Abnormal) Range: 100-199 :45 CBC, Platelets & Auto Diff Comments: PATIENT WAS FASTINGPERFORMED BY: [facility] [id number] (72711) Immature Grans (Abs) 0.0 {x10E3/uL} (Normal) Range: 0.0-0.1 Immature Granulocytes 0 % (Normal) Baso (Absolute) 0.0 {x10E3/uL} (Normal) Range: 0.0-0.2 Eos (Absolute) 0.2 {x10E3/uL} (Normal) Range: 0.0-0.4 Monocytes(Absolute) 0.7 {x10E3/uL} (Normal) Range: 0.1-0.9 Lymphs (Absolute) 2.2 {x10E3/uL} (Normal) Range: 0.7-3.1 Neutrophils (Absolute) 3.3 {x10E3/uL} (Normal) Range: 1.4-7.0 Basos 1 % (Normal) Eos 3 % (Normal) Monocytes 12 % (Normal) Lymphs 34 % (Normal) Neutrophils 50 % (Normal) Platelets 359 {x10E3/uL} (Normal) Range: 150-379 RDW 13.0 % (Normal) Range: 12.3-15.4 MCHC 32.8 g/dL (Normal) Range: 31.5-35.7 MCH 30.5 pg (Normal) Range: 26.6-33.0 MCV 93 fL (Normal) Range: 79-97 Hematocrit 40.6 % (Normal) Range: 34.0-46.6 Hemoglobin 13.3 g/dL (Normal) Range: 11.1-15.9 RBC 4.36 {x10E6/uL} (Normal) Range: 3.77-5.28 WBC 6.5 {x10E3/uL} (Normal) Range: 3.4-10.8 56-Enu-11257:45 Metabolic Panel, Comprehensive Comments: PATIENT WAS FASTINGPERFORMED BY: LabCoHampton [facility]al Health CenterCqcqtp1476 [facility] [id number] ([id number]) ALT (SGPT) 30 [iU]/L (Normal) Range: 0-32 AST (SGOT) 26 [iU]/L (Normal) Range: 0-40 Alkaline Phosphatase, S 56 [iU]/L (Normal) Range: 39-117 Bilirubin, Total 0.6 mg/dL (Normal) Range: 0.0-1.2 A/G Ratio 2.7 (Abnormal) Range: 1.1-2.5 Globulin, Total 1.8 g/dL (Normal) Range: 1.5-4.5 Albumin, Serum 4.8 g/dL (Normal) Range: 3.5-4.8 Protein, Total, Serum 6.6 g/dL (Normal) Range: 6.0-8.5 Calcium, Serum 9.7 mg/dL (Normal) Range: 8.7-10.3 Carbon Dioxide, Total 28 mmol/L (Normal) Range: 18-29 Chloride, Serum 97 mmol/L (Normal) Range: 97-106 Potassium, Serum 4.1 mmol/L (Normal) Range: 3.5-5.2 Sodium, Serum 144 mmol/L (Normal) Range: 136-144 BUN/Creatinine Ratio 18 (Normal) Range: 11-26 eGFR If Africn Am 71 mL/min/1.73 (Normal) eGFR If NonAfricn Am 62 mL/min/1.73 (Normal) Creatinine, Serum 0.89 mg/dL (Normal) Range: 0.57-1.00 BUN 16 mg/dL (Normal) Range: 8-27 Glucose, Serum 99 mg/dL (Normal) Range: 65-99 9-Azy-309279:00 MICROALBUMIN: CREATININE RATIO Comments: PATIENT WAS FASTINGPERFORMED BY: [employer] [facility] [id number] ([id number]) AND (39647) Microalb/Creat Ratio 9.2 {mg/g_creat} (Normal) Range: 0.0-30.0 Microalbumin, Urine 28.4 ug/mL (Normal) Creatinine, Urine 307.2 mg/dL (Normal) : METABOLIC PANEL, COMPREHENSIVE Comments: PATIENT WAS FASTINGPERFORMED BY: [employer] [facility] [facility] [id number] (35982) ALT (SGPT) 23 [iU]/L (Normal) Range: 0-32 AST (SGOT) 21 [iU]/L (Normal) Range: 0-40 Alkaline Phosphatase, S 63 [iU]/L (Normal) Range: 39-117 Bilirubin, Total 0.7 mg/dL (Normal) Range: 0.0-1.2 A/G Ratio 2.3 (Normal) Range: 1.1-2.5 Globulin, Total 2.0 g/dL (Normal) Range: 1.5-4.5 Albumin, Serum 4.5 g/dL (Normal) Range: 3.5-4.8 Protein, Total, Serum 6.5 g/dL (Normal) Range: 6.0-8.5 Calcium, Serum 9.7 mg/dL (Normal) Range: 8.7-10.3 Carbon Dioxide, Total 28 mmol/L (Normal) Range: 18-29 Chloride, Serum 98 mmol/L (Normal) Range: 97-108 Potassium, Serum 4.0 mmol/L (Normal) Range: 3.5-5.2 Sodium, Serum 143 mmol/L (Normal) Range: 134-144 BUN/Creatinine Ratio 13 (Normal) Range: 11-26 eGFR If Africn Am 79 mL/min/1.73 (Normal) eGFR If NonAfricn Am 68 mL/min/1.73 (Normal) Creatinine, Serum 0.82 mg/dL (Normal) Range: 0.57-1.00 BUN 11 mg/dL (Normal) Range: 8-27 Glucose, Serum 92 mg/dL (Normal) Range: 65-99 2-Zca-359882:00 LIPID PANEL (09641) Comments: PATIENT WAS FASTINGPERFORMED BY: [facility] [id number]; fu 6-13 with [facility] LDL/HDL Ratio 1.9 {ratio_units} (Normal) Range: 0.0-3.2 Comments: LDL/HDL Ratio Men Women 1/2 Avg.Risk 1.0 1.5 Av g.Risk 3.6 3.2 2X Avg.Risk 6.2 5.0 3X Avg.Risk 8.0 6.1 LDL Cholesterol Calc 124 mg/dL (Abnormal) Range: 0-99 VLDL Cholesterol Thanh 20 mg/dL (Normal) Range: 5-40 HDL Cholesterol 67 mg/dL (Normal) Comments: According to ATP-III Guidelines, HDL-C >59 mg/dL is considered anegative risk factor for CHD. Triglycerides 100 mg/dL (Normal) Range: 0-149 Cholesterol, Total 211 mg/dL (Abnormal) Range: 100-199 [id number] CBC with auto diff Comments: PATIENT WAS FASTINGPERFORMED BY: [employer] [facility] [id number] Information: [id number] ([id number]) Immature Grans (Abs) 0.0 {x10E3/uL} (Normal) Range: 0.0-0.1 Immature Granulocytes 0 % (Normal) Baso (Absolute) 0.0 {x10E3/uL} (Normal) Range: 0.0-0.2 Eos (Absolute) 0.2 {x10E3/uL} (Normal) Range: 0.0-0.4 Monocytes(Absolute) 0.8 {x10E3/uL} (Normal) Range: 0.1-0.9 Lymphs (Absolute) 1.8 {x10E3/uL} (Normal) Range: 0.7-3.1 Neutrophils (Absolute) 2.7 {x10E3/uL} (Normal) Range: 1.4-7.0 Basos 1 % (Normal) Eos 4 % (Normal) Monocytes 14 % (Normal) Lymphs 32 % (Normal) Neutrophils 49 % (Normal) Platelets 364 {x10E3/uL} (Normal) Range: 150-379 RDW 13.2 % (Normal) Range: 12.3-15.4 MCHC 33.4 g/dL (Normal) Range: 31.5-35.7 MCH 30.5 pg (Normal) Range: 26.6-33.0 MCV 91 fL (Normal) Range: 79-97 Hematocrit 38.3 % (Normal) Range: 34.0-46.6 Hemoglobin 12.8 g/dL (Normal) Range: 11.1-15.9 RBC 4.19 {x10E6/uL} (Normal) Range: 3.77-5.28 WBC 5.5 {x10E3/uL} (Normal) Range: 3.4-10.8 [id number] Urinalysis, Office ([id number]) UA - LEUKOCYTE ESTERASE Small (Normal) UA - NITRITE Negative (Normal) URINE UROBILINGN JOSÉ MIGUEL TIMED Normal mg/dL (Normal) UA - PROTEIN Negative mg/dL (Normal) UA - PH 7 (Normal) UA - BLOOD Negative (Normal) UA - SPECIFIC GRAVITY 1.020 (Normal) UA - KETONES Negative mg/dL (Normal) UA - BILIRUBIN Negative (Normal) UA - GLUCOSE Negative (Normal) :10 Microscopic Examination Comments: PATIENT WAS FASTINGPERFORMED BY: [id number] [id number] Bacteria Moderate (Abnormal) Mucus Threads Present (Normal) Epithelial Cells (non renal) >10 {/hpf} (Abnormal) Range: 0 - 10 RBC 0-2 {/hpf} (Normal) Range: 0 - 2 WBC 11-30 {/hpf} (Abnormal) Range: 0 - 5 :10 CALCIFIDIOL (76151) VIT D 25 Comments: PATIENT WAS FASTINGPERFORMED BY: Hi-Midia Mitasj3789 [facility] [id number] Vitamin D, 25-Hydroxy 30.0 ng/mL (Normal) Range: 30.0-100.0 Comments: Vitamin D deficiency has been defined by the [place] [facility] and an Endocrine Society practice guideline as alevel of serum 25-OH vitamin D less than 20 ng/mL (1,2).The Endocrine Society went on to further define vitamin Dinsufficiency as a level between 21 and 29 ng/mL (2).1. IOM ([place] of Medicine). 2010. Dietary reference intakes for calcium and D. [place]: The National Academies Press.2. Barb MF, Malachi BEYER, Bj LEAL, et al. Evaluation, treatment, and prevention of vitamin D deficiency: an Endocrine Society clinical practice guideline. JCEM. 2010; 96(7):1911-30. :10 URINALYSIS, W/ MICRO (81999) Comments: PATIENT WAS FASTINGPERFORMED BY: [employer]6370 [facility] [id number] Microscopic Examination See below: (Normal) Comments: Microscopic was indicated and was performed. Nitrite, Urine Negative (Normal) Urobilinogen,Semi-Qn 0.2 mg/dL (Normal) Range: 0.2-1.0 Bilirubin Negative (Normal) Occult Blood Negative (Normal) Ketones Negative (Normal) Glucose Negative (Normal) Protein 1+ (Abnormal) WBC Esterase 3+ (Abnormal) Appearance Cloudy (Abnormal) Urine-Color Yellow (Normal) pH 7.5 (Normal) Range: 5.0-7.5 Specific [place] 1.023 (Normal) Range: 1.005-1.030 :10 METABOLIC PANEL, COMPREHENSIVE Comments: PATIENT WAS FASTINGPERFORMED BY: [employer] Pslvjg8133 [facility] [id number] (98543) ALT (SGPT) 26 [iU]/L (Normal) Range: 0-32 AST (SGOT) 28 [iU]/L (Normal) Range: 0-40 Alkaline Phosphatase, S 53 [iU]/L (Normal) Range: 39-117 Bilirubin, Total 0.8 mg/dL (Normal) Range: 0.0-1.2 A/G Ratio 2.3 (Normal) Range: 1.1-2.5 Globulin, Total 1.9 g/dL (Normal) Range: 1.5-4.5 Albumin, Serum 4.3 g/dL (Normal) Range: 3.5-4.8 Protein, Total, Serum 6.2 g/dL (Normal) Range: 6.0-8.5 Calcium, Serum 9.6 mg/dL (Normal) Range: 8.7-10.3 Carbon Dioxide, Total 27 mmol/L (Normal) Range: 18-29 Chloride, Serum 98 mmol/L (Normal) Range: 97-108 Potassium, Serum 4.1 mmol/L (Normal) Range: 3.5-5.2 Sodium, Serum 142 mmol/L (Normal) Range: 134-144 BUN/Creatinine Ratio 16 (Normal) Range: 11-26 eGFR If Africn Am 69 mL/min/1.73 (Normal) eGFR If NonAfricn Am 60 mL/min/1.73 (Normal) Creatinine, Serum 0.92 mg/dL (Normal) Range: 0.57-1.00 BUN 15 mg/dL (Normal) Range: 8-27 Glucose, Serum 92 mg/dL (Normal) Range: 65-99 07-Sep-20159:10 LIPID PANEL (30638) Comments: PATIENT WAS FASTINGPERFORMED BY: [facility]Co[facility] CenterXhwvjt4801 [facility] [id number] LDL/HDL Ratio 1.9 {ratio_units} (Normal) Range: 0.0-3.2 Comments: LDL/HDL Ratio Men Women 1/2 Avg.Risk 1.0 1.5 Av g.Risk 3.6 3.2 2X Avg.Risk 6.2 5.0 3X Avg.Risk 8.0 6.1 LDL Cholesterol Calc 137 mg/dL (Abnormal) Range: 0-99 VLDL Cholesterol Thanh 21 mg/dL (Normal) Range: 5-40 HDL Cholesterol 71 mg/dL (Normal) Comments: According to ATP-III Guidelines, HDL-C >59 mg/dL is considered anegative risk factor for CHD. Triglycerides 103 mg/dL (Normal) Range: 0-149 Cholesterol, Total 229 mg/dL (Abnormal) Range: 100-199 :10 CBC with auto diff Comments: PATIENT WAS FASTINGPERFORMED BY: [facility] CenterKlcbbp8075 [facility] [id number] Information: [id number]; apt. [birth year] (39743) Immature Grans (Abs) 0.0 {x10E3/uL} (Normal) Range: 0.0-0.1 Immature Granulocytes 0 % (Normal) Baso (Absolute) 0.1 {x10E3/uL} (Normal) Range: 0.0-0.2 Eos (Absolute) 0.1 {x10E3/uL} (Normal) Range: 0.0-0.4 Monocytes(Absolute) 0.8 {x10E3/uL} (Normal) Range: 0.1-0.9 Lymphs (Absolute) 2.0 {x10E3/uL} (Normal) Range: 0.7-3.1 Neutrophils (Absolute) 2.7 {x10E3/uL} (Normal) Range: 1.4-7.0 Basos 1 % (Normal) Eos 3 % (Normal) Monocytes 14 % (Normal) Lymphs 35 % (Normal) Neutrophils 47 % (Normal) Platelets 348 {x10E3/uL} (Normal) Range: 150-379 RDW 12.6 % (Normal) Range: 12.3-15.4 MCHC 32.4 g/dL (Normal) Range: 31.5-35.7 MCH 30.1 pg (Normal) Range: 26.6-33.0 MCV 93 fL (Normal) Range: 79-97 Hematocrit 40.8 % (Normal) Range: 34.0-46.6 Hemoglobin 13.2 g/dL (Normal) Range: 11.1-15.9 RBC 4.38 {x10E6/uL} (Normal) Range: 3.77-5.28 WBC 5.7 {x10E3/uL} (Normal) Range: 3.4-10.8 :27 CBC With Differential/Platelet Comments: PATIENT WAS FASTINGPERFORMED BY: [facility] CenterYzkjin7825 [facility] [id number] Information: [id number] Immature Grans (Abs) 0.0 {x10E3/uL} (Normal) Range: 0.0-0.1 Immature Granulocytes 0 % (Normal) Baso (Absolute) 0.1 {x10E3/uL} (Normal) Range: 0.0-0.2 Eos (Absolute) 0.1 {x10E3/uL} (Normal) Range: 0.0-0.4 Monocytes(Absolute) 0.7 {x10E3/uL} (Normal) Range: 0.1-0.9 Lymphs (Absolute) 2.2 {x10E3/uL} (Normal) Range: 0.7-3.1 Neutrophils (Absolute) 2.4 {x10E3/uL} (Normal) Range: 1.4-7.0 Basos 1 % (Normal) Eos 2 % (Normal) Monocytes 12 % (Normal) Lymphs 41 % (Normal) Neutrophils 44 % (Normal) Platelets 376 {x10E3/uL} (Normal) Range: 150-379 RDW 12.9 % (Normal) Range: 12.3-15.4 MCHC 34.4 g/dL (Normal) Range: 31.5-35.7 MCH 31.1 pg (Normal) Range: 26.6-33.0 MCV 91 fL (Normal) Range: 79-97 Hematocrit 39.0 % (Normal) Range: 34.0-46.6 Hemoglobin 13.4 g/dL (Normal) Range: 11.1-15.9 RBC 4.31 {x10E6/uL} (Normal) Range: 3.77-5.28 WBC 5.5 {x10E3/uL} (Normal) Range: 3.4-10.8 09-Mar-20158:27 Comp. Metabolic Panel (14) Comments: PATIENT WAS FASTINGPERFORMED BY: [facility]Co[facility] CenterApalhn1023 [facility] [id number] ALT (SGPT) 24 [iU]/L (Normal) Range: 0-32 AST (SGOT) 25 [iU]/L (Normal) Range: 0-40 Alkaline Phosphatase, S 59 [iU]/L (Normal) Range: 39-117 Bilirubin, Total 0.8 mg/dL (Normal) Range: 0.0-1.2 A/G Ratio 2.4 (Normal) Range: 1.1-2.5 Globulin, Total 1.9 g/dL (Normal) Range: 1.5-4.5 Albumin, Serum 4.6 g/dL (Normal) Range: 3.5-4.8 Protein, Total, Serum 6.5 g/dL (Normal) Range: 6.0-8.5 Calcium, Serum 9.7 mg/dL (Normal) Range: 8.7-10.3 Carbon Dioxide, Total 27 mmol/L (Normal) Range: 18-29 Chloride, Serum 97 mmol/L (Normal) Range: 97-108 Potassium, Serum 4.2 mmol/L (Normal) Range: 3.5-5.2 Sodium, Serum 140 mmol/L (Normal) Range: 134-144 BUN/Creatinine Ratio 16 (Normal) Range: 11-26 eGFR If Africn Am 71 mL/min/1.73 (Normal) eGFR If NonAfricn Am 61 mL/min/1.73 (Normal) Creatinine, Serum 0.90 mg/dL (Normal) Range: 0.57-1.00 BUN 14 mg/dL (Normal) Range: 8-27 Glucose, Serum 93 mg/dL (Normal) Range: 65-99 :27 Lipid Panel With LDL/HDL Comments: PATIENT WAS FASTINGPERFORMED BY: [facility]Co[facility] CenterEjgowv6017 [facility] [id number] Ratio LDL/HDL Ratio 2.1 {ratio_units} (Normal) Range: 0.0-3.2 Comments: LDL/HDL Ratio Men Women 1/2 Avg.Risk 1.0 1.5 Av g.Risk 3.6 3.2 2X Avg.Risk 6.2 5.0 3X Avg.Risk 8.0 6.1 LDL Cholesterol Calc 140 mg/dL (Abnormal) Range: 0-99 VLDL Cholesterol Thanh 24 mg/dL (Normal) Range: 5-40 HDL Cholesterol 66 mg/dL (Normal) Comments: According to ATP-III Guidelines, HDL-C >59 mg/dL is considered anegative risk factor for CHD. Triglycerides 119 mg/dL (Normal) Range: 0-149 Cholesterol, Total 230 mg/dL (Abnormal) Range: 100-199 :27 Microalb/Creat Ratio, Randm Ur Comments: PATIENT WAS FASTINGPERFORMED BY: [facility] Lfawtj0680 [facility] [id number]; has fu 03-17-15 will review with her then Microalb/Creat Ratio 9.1 {mg/g_creat} Range: 0.0-30.0 (Normal) Microalbumin, Urine 25.2 ug/mL (Abnormal) Range: 0.0-17.0 Creatinine, Urine 278.2 mg/dL (Abnormal) Range: 15.0-278.0 Vitamin D, 25-Hydroxy 31.1 ng/mL (Normal) Comments: PATIENT WAS FASTINGPERFORMED BY: [facility]6370 [facility] [id number] :27 Range: 30.0-100.0 Comments: Vitamin D deficiency has been defined by the [place] ofMedicine and an Endocrine Society practice guideline as alevel of serum 25-OH vitamin D less than 20 ng/mL (1,2).The Endocrine Society went on to further define vitamin Dinsufficiency as a level between 21 and 29 ng/mL (2).1. IOM ([place] of Medicine). 2010. Dietary reference intakes for calcium and D. [place]: The National Academies Press.2. Barb MF, Malachi NC, Bj LEAL, et al. Evaluation, treatment, and prevention of vitamin D deficiency: an Endocrine Society clinical practice guideline. JCEM. 2010; 96(7):1911-30. :35 Microscopic Examination Comments: PATIENT WAS FASTINGPERFORMED BY: [facility] Kcvqkv6574 [facility] [id number] Bacteria None seen (Normal) Mucus Threads Present (Normal) Crystal Type Calcium Oxalate (Normal) Crystals Present (Abnormal) Epithelial Cells (non renal) 0-10 {/hpf} (Normal) Range: 0 - 10 RBC 0-2 {/hpf} (Normal) Range: 0 - 2 WBC 0-5 {/hpf} (Normal) Range: 0 - 5 :06 Rapid Strep Test, Office (29328) Rapid Strep Test, Office Negative (Normal) :03 Rapid Flu (45176 x 2) Influenza A Ag neg (Normal) :35 URINALYSIS, W/ MICRO (60709) Comments: -; PATIENT WAS FASTINGPERFORMED BY: [employer]6370 [facility] [id number] Microscopic Examination See below: (Normal) Comments: Microscopic was indicated and was performed. Nitrite, Urine Negative (Normal) Urobilinogen,Semi-Qn 1.0 mg/dL (Normal) Range: 0.0-1.9 Bilirubin Negative (Normal) Occult Blood Negative (Normal) Ketones Trace (Abnormal) Glucose Negative (Normal) Protein 1+ (Abnormal) WBC Esterase Trace (Abnormal) Appearance Clear (Normal) Urine-Color Yellow (Normal) pH 6.5 (Normal) Range: 5.0-7.5 Specific [place] 1.029 (Normal) Range: 1.005-1.030 :35 CBC, Platelets & Auto Diff Comments: 09-14; PATIENT WAS FASTINGPERFORMED BY: [employer]6370 [facility] [id number] Information: [id number] (69942) Immature Grans (Abs) 0.2 {x10E3/uL} Range: 0.0-0.1 (Abnormal) Comments: (An elevated percentage of Immature Granulocytes has not been foundto be clinically significant as a sole clinical predictor of disease.Does NOT include bands or blast cells. associatedphysio logical leukocytosis may also show increased immaturegranulocytes without clinical significance.) Immature Granulocytes 1 % (Normal) Baso (Absolute) 0.0 {x10E3/uL} (Normal) Range: 0.0-0.2 Eos (Absolute) 0.3 {x10E3/uL} (Normal) Range: 0.0-0.4 Monocytes(Absolute) 1.6 {x10E3/uL} Range: 0.1-0.9 (Abnormal) Lymphs (Absolute) 5.6 {x10E3/uL} Range: 0.7-3.1 (Abnormal) Neutrophils (Absolute) 6.7 {x10E3/uL} (Normal) Range: 1.4-7.0 Basos 0 % (Normal) Eos 2 % (Normal) Monocytes 11 % (Normal) Lymphs 39 % (Normal) Neutrophils 47 % (Normal) Platelets 441 {x10E3/uL} Range: 150-379 (Abnormal) RDW 12.7 % (Normal) Range: 12.3-15.4 MCHC 33.1 g/dL (Normal) Range: 31.5-35.7 MCH 30.5 pg (Normal) Range: 26.6-33.0 MCV 92 fL (Normal) Range: 79-97 Hematocrit 42.3 % (Normal) Range: 34.0-46.6 Hemoglobin 14.0 g/dL (Normal) Range: 11.1-15.9 RBC 4.59 {x10E6/uL} (Normal) Range: 3.77-5.28 WBC 14.3 {x10E3/uL} Range: 3.4-10.8 (Abnormal) :35 Metabolic Panel, Comprehensive Comments: 12-14; PATIENT WAS FASTINGPERFORMED BY: [facility]6370 [facility] [id number] (70556) ALT (SGPT) 16 [iU]/L (Normal) Range: 0-32 AST (SGOT) 15 [iU]/L (Normal) Range: 0-40 Alkaline Phosphatase, S 58 [iU]/L (Normal) Range: 39-117 Bilirubin, Total 0.5 mg/dL (Normal) Range: 0.0-1.2 A/G Ratio 2.2 (Normal) Range: 1.1-2.5 Globulin, Total 2.0 g/dL (Normal) Range: 1.5-4.5 Albumin, Serum 4.3 g/dL (Normal) Range: 3.5-4.8 Protein, Total, Serum 6.3 g/dL (Normal) Range: 6.0-8.5 Calcium, Serum 9.5 mg/dL (Normal) Range: 8.6-10.2 Carbon Dioxide, Total 29 mmol/L (Normal) Range: 18-29 Chloride, Serum 92 mmol/L (Abnormal) Range: 97-108 Potassium, Serum 3.9 mmol/L (Normal) Range: 3.5-5.2 Sodium, Serum 139 mmol/L (Normal) Range: 134-144 BUN/Creatinine Ratio 21 (Normal) Range: 11-26 eGFR If Africn Am 63 mL/min/1.73 (Normal) eGFR If NonAfricn Am 54 mL/min/1.73 (Abnormal) Creatinine, Serum 1.00 mg/dL (Normal) Range: 0.57-1.00 BUN 21 mg/dL (Normal) Range: 8-27 Glucose, Serum 81 mg/dL (Normal) Range: 65-99 08-Sep-20149:35 Lipid Panel (42125) Comments: 12-14; PATIENT WAS FASTINGPERFORMED BY: [employer] [facility] [id number] LDL/HDL Ratio 1.7 {ratio_units} (Normal) Range: 0.0-3.2 Comments: LDL/HDL Ratio Men Women 1/2 Avg.Risk 1.0 1.5 Av g.Risk 3.6 3.2 2X Avg.Risk 6.2 5.0 3X Avg.Risk 8.0 6.1 LDL Cholesterol Calc 119 mg/dL (Abnormal) Range: 0-99 VLDL Cholesterol Thanh 24 mg/dL (Normal) Range: 5-40 HDL Cholesterol 72 mg/dL (Normal) Comments: According to ATP-III Guidelines, HDL-C >59 mg/dL is considered anegative risk factor for CHD. Triglycerides 122 mg/dL (Normal) Range: 0-149 Cholesterol, Total 215 mg/dL (Abnormal) Range: 100-199 15-Epm-377180:12 Metabolic Panel, Basic Comments: today; PATIENT NOT FASTINGPERFORMED BY: [employer]6370 [facility] [id number] Information: [id number],NURSE DRAW (43125) Calcium, Serum 10.6 mg/dL (Abnormal) Range: 8.6-10.2 Carbon Dioxide, Total 29 mmol/L (Normal) Range: 18-29 Chloride, Serum 95 mmol/L (Abnormal) Range: 97-108 Potassium, Serum 3.8 mmol/L (Normal) Range: 3.5-5.2 Sodium, Serum 141 mmol/L (Normal) Range: 134-144 BUN/Creatinine Ratio 17 (Normal) Range: 11-26 eGFR If Africn Am 73 mL/min/1.73 (Normal) eGFR If NonAfricn Am 64 mL/min/1.73 (Normal) Creatinine, Serum 0.88 mg/dL (Normal) Range: 0.57-1.00 BUN 15 mg/dL (Normal) Range: 8-27 Glucose, Serum 93 mg/dL (Normal) Range: 65-99 :06 METABOLIC PANEL, Comments: 4 months; PATIENT WAS FASTINGPERFORMED BY: [employer]70 [facility] [id number] Information: [id number] COMPREHENSIVE (22231) ALT (SGPT) 24 [iU]/L (Normal) Range: 0-32 AST (SGOT) 28 [iU]/L (Normal) Range: 0-40 Alkaline Phosphatase, S 51 [iU]/L (Normal) Range: 39-117 Bilirubin, Total 0.7 mg/dL (Normal) Range: 0.0-1.2 A/G Ratio 4.1 (Abnormal) Range: 1.1-2.5 Globulin, Total 1.1 g/dL (Abnormal) Range: 1.5-4.5 Albumin, Serum 4.5 g/dL (Normal) Range: 3.5-4.8 Protein, Total, Serum 5.6 g/dL (Abnormal) Range: 6.0-8.5 Calcium, Serum 9.9 mg/dL (Normal) Range: 8.6-10.2 Carbon Dioxide, Total 28 mmol/L (Normal) Range: 19-28 Chloride, Serum 99 mmol/L (Normal) Range: 97-108 Potassium, Serum 3.8 mmol/L (Normal) Range: 3.5-5.2 Sodium, Serum 140 mmol/L (Normal) Range: 134-144 BUN/Creatinine Ratio 14 (Normal) Range: 11-26 eGFR If Africn Am 74 mL/min/1.73 (Normal) eGFR If NonAfricn Am 64 mL/min/1.73 (Normal) Creatinine, Serum 0.87 mg/dL (Normal) Range: 0.57-1.00 BUN 12 mg/dL (Normal) Range: 8-27 Glucose, Serum 91 mg/dL (Normal) Range: 65-99 :06 LIPID PANEL (97055) Comments: 4 months; PATIENT WAS FASTINGPERFORMED BY: [employer]6370 [facility] [id number] LDL/HDL Ratio 2.0 {ratio_units} (Normal) Range: 0.0-3.2 LDL Cholesterol Calc 145 mg/dL (Abnormal) Range: 0-99 VLDL Cholesterol Thanh 22 mg/dL (Normal) Range: 5-40 HDL Cholesterol 71 mg/dL (Normal) Comments: According to ATP-III Guidelines, HDL-C >59 mg/dL is considered anegative risk factor for CHD. Triglycerides 111 mg/dL (Normal) Range: 0-149 Cholesterol, Total 238 mg/dL (Abnormal) Range: 100-199 :03 Potassium Serum (29557) Comments: today; PATIENT NOT FASTINGPERFORMED BY: [employer] [id number] Information: [id number] Potassium, Serum 3.7 mmol/L (Normal) Range: 3.5-5.2 45-Evp-327487:41 MICROALBUMIN: CREATININE Comments: PATIENT NOT FASTINGPERFORMED BY: [facility]iaHam[facility] Health CenterHfkptx7031 [facility] [id number] Information: [id number] RATIO (70554) AND (61410) Microalb/Creat Ratio 6.9 {mg/g_creat} (Normal) Range: 0.0-30.0 Microalbumin, Urine 19.6 ug/mL (Abnormal) Range: 0.0-17.0 Creatinine, Urine 282.6 mg/dL (Abnormal) Range: 15.0-278.0 :57 METABOLIC PANEL, COMPREHENSIVE Comments: PATIENT WAS FASTINGPERFORMED BY: [employer]SystemsCharles [place]ille [id number] [facility] [id number] (62984) ALT (SGPT) 26 [iU]/L (Normal) Range: 0-32 AST (SGOT) 36 [iU]/L (Normal) Range: 0-40 Alkaline Phosphatase, S 62 [iU]/L (Normal) Range: 39-117 Bilirubin, Total 1.0 mg/dL (Normal) Range: 0.0-1.2 A/G Ratio 2.3 (Normal) Range: 1.1-2.5 Globulin, Total 2.0 g/dL (Normal) Range: 1.5-4.5 Albumin, Serum 4.5 g/dL (Normal) Range: 3.5-4.8 Protein, Total, Serum 6.5 g/dL (Normal) Range: 6.0-8.5 Calcium, Serum 9.5 mg/dL (Normal) Range: 8.6-10.2 Carbon Dioxide, Total 25 mmol/L (Normal) Range: 19-28 Chloride, Serum 98 mmol/L (Normal) Range: 97-108 Potassium, Serum 3.4 mmol/L (Abnormal) Range: 3.5-5.2 Comments: Client Requested Flag Sodium, Serum 139 mmol/L (Normal) Range: 134-144 BUN/Creatinine Ratio 12 (Normal) Range: 11-26 eGFR If Africn Am 72 mL/min/1.73 (Normal) eGFR If NonAfricn Am 62 mL/min/1.73 (Normal) Creatinine, Serum 0.90 mg/dL (Normal) Range: 0.57-1.00 BUN 11 mg/dL (Normal) Range: 8-27 Glucose, Serum 91 mg/dL (Normal) Range: 65-99 :57 LIPID PANEL (48069) Comments: PATIENT WAS FASTINGPERFORMED BY: [employer] [facility] [id number] LDL/HDL Ratio 1.7 {ratio_units} (Normal) Range: 0.0-3.2 LDL Cholesterol Calc 137 mg/dL (Abnormal) Range: 0-99 VLDL Cholesterol Thanh 12 mg/dL (Normal) Range: 5-40 HDL Cholesterol 81 mg/dL (Normal) Comments: According to ATP-III Guidelines, HDL-C >59 mg/dL is considered anegative risk factor for CHD. Triglycerides 60 mg/dL (Normal) Range: 0-149 Cholesterol, Total 230 mg/dL (Abnormal) Range: 100-199 :57 CBC WITH MANUAL DIFF Comments: PATIENT WAS FASTINGPERFORMED BY: [facility]fyHam[facility] Health CenterLgbwsv0343 [facility] [id number] Information: [id number] (91984) Immature Grans (Abs) 0.0 {x10E3/uL} (Normal) Range: 0.0-0.1 Immature Granulocytes 0 % (Normal) Range: 0-2 Baso (Absolute) 0.0 {x10E3/uL} (Normal) Range: 0.0-0.2 Eos (Absolute) 0.1 {x10E3/uL} (Normal) Range: 0.0-0.4 Monocytes(Absolute) 1.0 {x10E3/uL} (Abnormal) Range: 0.1-0.9 Lymphs (Absolute) 2.5 {x10E3/uL} (Normal) Range: 0.7-3.1 Neutrophils (Absolute) 3.5 {x10E3/uL} (Normal) Range: 1.4-7.0 Basos 0 % (Normal) Range: 0-3 Eos 2 % (Normal) Range: 0-5 Monocytes 14 % (Abnormal) Range: 4-12 Lymphs 35 % (Normal) Range: 14-46 Neutrophils 49 % (Normal) Range: 40-74 Platelets 348 {x10E3/uL} (Normal) Range: 155-379 RDW 12.8 % (Normal) Range: 12.3-15.4 MCHC 32.7 g/dL (Normal) Range: 31.5-35.7 MCH 29.9 pg (Normal) Range: 26.6-33.0 MCV 92 fL (Normal) Range: 79-97 Hematocrit 40.1 % (Normal) Range: 34.0-46.6 Hemoglobin 13.1 g/dL (Normal) Range: 11.1-15.9 RBC 4.38 {x10E6/uL} (Normal) Range: 3.77-5.28 WBC 7.2 {x10E3/uL} (Normal) Range: 3.4-10.8 :29 MICROALBUMIN: CREATININE RATIO Comments: PATIENT WAS FASTINGPERFORMED BY: [facility]CoHam[facility] CenterXkgjvq2186 [facility] [id number] (66417) AND (12275) Microalb/Creat Ratio 4.0 {mg/g_creat} (Normal) Range: 0.0-30.0 Microalbumin, Urine 8.3 ug/mL (Normal) Range: 0.0-17.0 Creatinine, Urine 206.4 mg/dL (Normal) Range: 15.0-278.0 :29 METABOLIC PANEL, COMPREHENSIVE Comments: PATIENT WAS FASTINGPERFORMED BY: [facility]Co[facility] CenterKwwagu1691 [facility] [id number] (49169) ALT (SGPT) 22 [iU]/L (Normal) Range: 0-32 AST (SGOT) 24 [iU]/L (Normal) Range: 0-40 Alkaline Phosphatase, S 50 [iU]/L (Normal) Range: 25-165 Bilirubin, Total 0.7 mg/dL (Normal) Range: 0.0-1.2 A/G Ratio 2.0 (Normal) Range: 1.1-2.5 Globulin, Total 2.1 g/dL (Normal) Range: 1.5-4.5 Albumin, Serum 4.2 g/dL (Normal) Range: 3.5-4.8 Protein, Total, Serum 6.3 g/dL (Normal) Range: 6.0-8.5 Calcium, Serum 9.7 mg/dL (Normal) Range: 8.6-10.2 Carbon Dioxide, Total 26 mmol/L (Normal) Range: 20-32 Chloride, Serum 101 mmol/L (Normal) Range: 97-108 Potassium, Serum 3.8 mmol/L (Normal) Range: 3.5-5.2 Sodium, Serum 142 mmol/L (Normal) Range: 134-144 BUN/Creatinine Ratio 18 (Normal) Range: 11-26 eGFR If Africn Am 77 mL/min/1.73 (Normal) eGFR If NonAfricn Am 67 mL/min/1.73 (Normal) Creatinine, Serum 0.85 mg/dL (Normal) Range: 0.57-1.00 BUN 15 mg/dL (Normal) Range: 8-27 Glucose, Serum 93 mg/dL (Normal) Range: 65-99 47-Tao-76403:29 LIPID PANEL (98414) Comments: PATIENT WAS FASTINGPERFORMED BY: LabCoHam[facility] CenterDporqv4125 [facility] [id number] LDL/HDL Ratio 1.9 {ratio_units} (Normal) Range: 0.0-3.2 LDL Cholesterol Calc 124 mg/dL (Abnormal) Range: 0-99 VLDL Cholesterol Thanh 20 mg/dL (Normal) Range: 5-40 HDL Cholesterol 64 mg/dL (Normal) Comments: According to ATP-III Guidelines, HDL-C >59 mg/dL is considered anegative risk factor for CHD. Triglycerides 99 mg/dL (Normal) Range: 0-149 Cholesterol, Total 208 mg/dL (Abnormal) Range: 100-199 :29 CBC WITH MANUAL DIFF Comments: PATIENT WAS FASTINGPERFORMED BY: LATA LabCoHam[facility] Behavior[facility] Health CenterCknigu3362 [facility] [id number] Information: [id number] (25287) Immature Grans (Abs) 0.0 {x10E3/uL} (Normal) Range: 0.0-0.1 Immature Granulocytes 0 % (Normal) Range: 0-2 Baso (Absolute) 0.0 {x10E3/uL} (Normal) Range: 0.0-0.2 Eos (Absolute) 0.2 {x10E3/uL} (Normal) Range: 0.0-0.4 Monocytes(Absolute) 0.8 {x10E3/uL} (Normal) Range: 0.1-1.0 Lymphs (Absolute) 1.8 {x10E3/uL} (Normal) Range: 0.7-4.5 Neutrophils (Absolute) 2.0 {x10E3/uL} (Normal) Range: 1.8-7.8 Basos 1 % (Normal) Range: 0-3 Eos 3 % (Normal) Range: 0-7 Monocytes 16 % (Abnormal) Range: 4-13 Lymphs 38 % (Normal) Range: 14-46 Neutrophils 42 % (Normal) Range: 40-74 Platelets 352 {x10E3/uL} (Normal) Range: 140-415 RDW 13.3 % (Normal) Range: 12.3-15.4 MCHC 32.7 g/dL (Normal) Range: 31.5-35.7 MCH 30.3 pg (Normal) Range: 26.6-33.0 MCV 93 fL (Normal) Range: 79-97 Hematocrit 38.8 % (Normal) Range: 34.0-46.6 Hemoglobin 12.7 g/dL (Normal) Range: 11.1-15.9 RBC 4.19 {x10E6/uL} (Normal) Range: 3.77-5.28 WBC 4.8 {x10E3/uL} (Normal) Range: 4.0-10.5 05-Sep-20128:06 CBC/Diff Ambiguous Default Comments: PATIENT WAS FASTINGPERFORMED BY: [id number] [id number] Immature Grans (Abs) 0.0 {x10E3/uL} (Normal) Range: 0.0-0.1 Immature Granulocytes 0 % (Normal) Range: 0-2 Baso (Absolute) 0.0 {x10E3/uL} (Normal) Range: 0.0-0.2 Eos (Absolute) 0.1 {x10E3/uL} (Normal) Range: 0.0-0.4 Monocytes(Absolute) 0.8 {x10E3/uL} (Normal) Range: 0.1-1.0 Lymphs (Absolute) 2.2 {x10E3/uL} (Normal) Range: 0.7-4.5 Neutrophils (Absolute) 3.0 {x10E3/uL} (Normal) Range: 1.8-7.8 Basos 1 % (Normal) Range: 0-3 Eos 1 % (Normal) Range: 0-7 Monocytes 13 % (Normal) Range: 4-13 Lymphs 36 % (Normal) Range: 14-46 Neutrophils 49 % (Normal) Range: 40-74 Platelets 393 {x10E3/uL} (Normal) Range: 140-415 RDW 13.1 % (Normal) Range: 12.3-15.4 MCHC 33.4 g/dL (Normal) Range: 31.5-35.7 MCH 30.9 pg (Normal) Range: 26.6-33.0 MCV 92 fL (Normal) Range: 79-97 Hematocrit 39.8 % (Normal) Range: 34.0-46.6 Hemoglobin 13.3 g/dL (Normal) Range: 11.1-15.9 RBC 4.31 {x10E6/uL} (Normal) Range: 3.77-5.28 WBC 6.1 {x10E3/uL} (Normal) Range: 4.0-10.5 :06 METABOLIC PANEL, COMPREHENSIVE Comments: PATIENT WAS FASTINGPERFORMED BY: [facility] [id number] [facility] [id number] ([id number]) ALT (SGPT) 22 [iU]/L (Normal) Range: 0-32 AST (SGOT) 26 [iU]/L (Normal) Range: 0-40 Alkaline Phosphatase, S 53 [iU]/L (Normal) Range: 25-165 Bilirubin, Total 0.6 mg/dL (Normal) Range: 0.0-1.2 A/G Ratio 2.4 (Normal) Range: 1.1-2.5 Globulin, Total 1.8 g/dL (Normal) Range: 1.5-4.5 Albumin, Serum 4.3 g/dL (Normal) Range: 3.5-4.8 Protein, Total, Serum 6.1 g/dL (Normal) Range: 6.0-8.5 Calcium, Serum 9.7 mg/dL (Normal) Range: 8.6-10.2 Carbon Dioxide, Total 27 mmol/L (Normal) Range: 20-32 Chloride, Serum 99 mmol/L (Normal) Range: 97-108 Potassium, Serum 4.0 mmol/L (Normal) Range: 3.5-5.2 Sodium, Serum 141 mmol/L (Normal) Range: 134-144 BUN/Creatinine Ratio 16 (Normal) Range: 11-26 eGFR If Africn Am 62 mL/min/1.73 (Normal) eGFR If NonAfricn Am 54 mL/min/1.73 (Abnormal) Creatinine, Serum 1.02 mg/dL (Abnormal) Range: 0.57-1.00 BUN 16 mg/dL (Normal) Range: 8-27 Glucose, Serum 91 mg/dL (Normal) Range: 65-99 :06 LIPID PANEL ([id number]) Comments: PATIENT WAS FASTINGPERFORMED BY: [facility] [id number] [facility] [id number] LDL/HDL Ratio 1.2 {ratio_units} (Normal) Range: 0.0-3.2 LDL Cholesterol Calc 95 mg/dL (Normal) Range: 0-99 VLDL Cholesterol Thanh 13 mg/dL (Normal) Range: 5-40 HDL Cholesterol 80 mg/dL (Normal) Comments: According to ATP-III Guidelines, HDL-C >59 mg/dL is considered anegative risk factor for CHD. Triglycerides 64 mg/dL (Normal) Range: 0-149 Cholesterol, Total 188 mg/dL (Normal) Range: 100-199 :59 Urinalysis, Office (91697) UA - BILIRUBIN Negative (Normal) UA - BLOOD Hemolyzed Trace (Normal) UA - GLUCOSE Negative (Normal) UA - KETONES Negative mg/dL (Normal) UA - LEUKOCYTE ESTERASE Negative (Normal) UA - NITRITE Negative (Normal) UA - PH 8.0 (Normal) UA - PROTEIN Negative mg/dL (Normal) UA - SPECIFIC GRAVITY 1.015 (Normal) URINE UROBILINGN JOSÉ MIGUEL TIMED Normal mg/dL (Normal) 21-Nai-18476:11 DEXA BONE DENSITY STUDY () Radiology Report See Note (Normal) Comments: PROCEDURE: DUAL ENERGY X-RAY ABSORPTIOMETRY / DEXA. REASON FOR EXAM: Female, 76 years old. The patient is postmenopausal. TECHNIQUE: Bone Mineral Density (BMD) measurements of lumbar s pine andbila teral hips were obtained. COMPARISON: Comparison is made with prior study dated January 14, 2010. FINDINGS: Lumbar Spine (L1-L4): g/cm2 (1.116) / T- score (-0.5) / Z-score (1.2)Left Femur Total: g/ cm2 (0.821) / T-score (-1.6) / Z-score (0.4)Right Femur Total: g/cm2 (0.883) / T-score (-1.1) / Z-score (0.8) Since prior study, there has been an improvement of 3.9% in the rightfemurand 2.4% in the lumbar spine. IMPRESSION:The patient is considered osteopenic, as outlined above, according toWorldHealth Organization (WHO) criteria. Fracture risk is moderate. Reference Information:The T-scor e is the number of standard deviations above or below thestandard which is normal for young adults at their peak bone mineraldensity. The World Health Organization (WHO) interprets the T-scores asfollow s: Above -1 Normal bone densityBetween -1 and -2.5 OsteopeniaEqual to / or below -2.5 Osteoporosis As a practical clinical guideline, osteopenia may be graded as follows:Mild -1 through -1 .5Moderate -1.6 through -2.0Severe -2.1 through -2.4 The Z-score is the number of standard deviations above or below age-matchedcontrols. A Z-score of less than -1.5 would be considered abnormal. Ref erences:1. NIH Osteoporosis and Related Bone Diseases http://www.osteo.org2. International Society for Clinical Densitometry http://www.iscd.org3. National Osteoporosis Foundation http://www.nof.org Signed:Rogelio Kumar M.D.March 29, 2012 at 8:59:04 AM [id number] Signed GP/GP If you are the referring physician and would like to consult with theradiologist who provided this interpretation, please contact Miracle Dale at . If this radiologist is unavailable,youwill be directed to another radiologist to assist. If you are a patient with a question r egarding this report, pleasecontactyour referring physician directly. Professional Interpretation Provided By: DEUS, Phone , Dictated on 03/28/12 0813 by Taty masters MD,Vimalranscribed on 03/29/12 0904 by ITS IMPORTSign by Jake ALEXANDRE,Rogelio on 03/29/12904 Sign by: Rogelio Kumar MD 49-Ves-45511:00 BILAT SCRN DIGITAL & CAD Radiology Report See Note (Normal) Comments: MAMMOGRAPHY - BILATERAL SCREENING REASON FOR EXAM: Female, 76 years old. Routine annual screeningexamination. PERTINENT HISTORY: Non-contributory. TECHNIQUE: Digital examination. Med iolateral ob lique (MLO) andcraniocaudad (CC) views of both breasts were obtained. CAD: CAD wasperformed on this study. COMPARISON: Comparison is made with prior study dated January 25, 2011. FINDINGS:The breast com position is composed of scattered fibroglandular densities. There are no dominant masses or suspicious calcifications. No other significant abnormalities are identified. There has been nosignificant ch santino since the prior study. IMPRESSION:Stable bilateral screening mammogram. Yearly follow-up recommended. (A) ASSESSMENT CATEGORY:BIRADS Category 2: Benign finding(s). A letter regarding these res elainell be sent to the patient by the facility within 30 days. Approximately 10% of breast cancers are not detected by mammography. Anormal mammogram should not delay biopsy of a clinically suspicious abnormality. Signed:Rogelio Kumar M.D.March 28, 2012 at 9:07:04 AM [phone] Signed GP/GP If you are the referring physician and would like to consult with theradiologist who provided this interpretation, please contact Miracle Dale at . If this radiologist is unavailable,youwill be directed to another radiologist to assist. If you are a patient with a question regarding this report, pleasecontactyour referring physician directly. Professional Interpretation Provided By: DEUS, Phone , Dictated on 03/28/12 084 7 by Jake ALEXANDRE,Vimalranscribed on 03/28/12 1125 by ITS IMPORTSign by Rogelio Kumar MD on 03/28/12 1126 Sign by: Rogelio Kumar MD 81-Ujm-02754:17 LIPID PANEL ([id number]) Comments: PATIENT NOT FASTINGPERFORMED BY: [employer]6[address] [facility]SpotLandEC[facility] [id number] LDL Cholesterol Calc 93 mg/dL (Normal) Range: 0-99 LDL/HDL Ratio 1.3 {ratio_units} (Normal) Range: 0.0-3.2 VLDL Cholesterol Thanh 22 mg/dL (Normal) Range: 5-40 HDL Cholesterol 73 mg/dL (Normal) Comments: According to ATP-III Guidelines, HDL-C >59 mg/dL is considered anegative risk factor for CHD. Triglycerides 112 mg/dL (Normal) Range: 0-149 Cholesterol, Total 188 mg/dL (Normal) Range: 100-199 33-Dur-49503:17 HEPATIC FUNCTION PANEL Comments: PATIENT NOT FASTINGPERFORMED BY: [employer]6370 PhotoSpotLandEC[facility] [id number] Information: ADD DRAW FEE [id number] ADD J0 0721 (67488) ALT (SGPT) 28 [iU]/L (Normal) Range: 0-40 AST (SGOT) 29 [iU]/L (Normal) Range: 0-40 Alkaline Phosphatase, S 54 [iU]/L (Normal) Range: 25-165 Bilirubin, Direct 0.20 mg/dL (Normal) Range: 0.00-0.40 Bilirubin, Total 0.7 mg/dL (Normal) Range: 0.0-1.2 Albumin, Serum 4.6 g/dL (Normal) Range: 3.5-4.8 Protein, Total, Serum 6.5 g/dL (Normal) Range: 6.0-8.5 09-Fwg-19125:30 CBC WITH MANUAL DIFF Comments: PATIENT WAS FASTINGPERFORMED BY: [facility]Co[facility] CenterDtpukl1048 [facility] [id number] Information: [id number] (68805) Immature Grans (Abs) 0.0 {x10E3/uL} (Normal) Range: 0.0-0.1 Immature Granulocytes 0 % (Normal) Range: 0-2 Baso (Absolute) 0.0 {x10E3/uL} (Normal) Range: 0.0-0.2 Eos (Absolute) 0.1 {x10E3/uL} (Normal) Range: 0.0-0.4 Monocytes(Absolute) 0.6 {x10E3/uL} (Normal) Range: 0.1-1.0 Lymphs (Absolute) 1.7 {x10E3/uL} (Normal) Range: 0.7-4.5 Neutrophils (Absolute) 2.3 {x10E3/uL} (Normal) Range: 1.8-7.8 Basos 1 % (Normal) Range: 0-3 Eos 2 % (Normal) Range: 0-7 Monocytes 13 % (Normal) Range: 4-13 Lymphs 36 % (Normal) Range: 14-46 Neutrophils 48 % (Normal) Range: 40-74 Platelets 324 {x10E3/uL} (Normal) Range: 140-415 RDW 13.6 % (Normal) Range: 11.7-15.0 MCHC 32.5 g/dL (Normal) Range: 32.0-36.0 MCH 30.7 pg (Normal) Range: 27.0-34.0 MCV 95 fL (Normal) Range: 80-98 Hematocrit 39.7 % (Normal) Range: 34.0-44.0 Hemoglobin 12.9 g/dL (Normal) Range: 11.5-15.0 RBC 4.20 {x10E6/uL} (Normal) Range: 3.80-5.10 WBC 4.8 {x10E3/uL} (Normal) Range: 4.0-10.5 :30 LIPID PANEL (56193) Comments: PATIENT WAS FASTINGPERFORMED BY: LabBold TechnologiesHampton Behavioral Health CenterQzazpr0490 [facility] [id number]; OV 02/28/12 LDL/HDL Ratio 2.1 {ratio_units} (Normal) Range: 0.0-3.2 LDL Cholesterol Calc 139 mg/dL (Abnormal) Range: 0-99 VLDL Cholesterol Thanh 29 mg/dL (Normal) Range: 5-40 HDL Cholesterol 67 mg/dL (Normal) Comments: According to ATP-III Guidelines, HDL-C >59 mg/dL is considered anegative risk factor for CHD. Triglycerides 147 mg/dL (Normal) Range: 0-149 Cholesterol, Total 235 mg/dL (Abnormal) Range: 100-199 :30 METABOLIC PANEL, COMPREHENSIVE Comments: PATIENT WAS FASTINGPERFORMED BY: [employer]6[facility] [id number] ([id number]) ALT (SGPT) 19 [iU]/L (Normal) Range: 0-40 AST (SGOT) 26 [iU]/L (Normal) Range: 0-40 Alkaline Phosphatase, S 46 [iU]/L (Normal) Range: 25-165 Bilirubin, Total 0.8 mg/dL (Normal) Range: 0.0-1.2 A/G Ratio 2.2 (Normal) Range: 1.1-2.5 Globulin, Total 2.0 g/dL (Normal) Range: 1.5-4.5 Albumin, Serum 4.4 g/dL (Normal) Range: 3.5-4.8 Protein, Total, Serum 6.4 g/dL (Normal) Range: 6.0-8.5 Calcium, Serum 9.8 mg/dL (Normal) Range: 8.6-10.2 Carbon Dioxide, Total 29 mmol/L (Normal) Range: 20-32 Chloride, Serum 100 mmol/L (Normal) Range: 97-108 Potassium, Serum 4.1 mmol/L (Normal) Range: 3.5-5.2 Sodium, Serum 141 mmol/L (Normal) Range: 134-144 BUN/Creatinine Ratio 23 (Normal) Range: 11-26 eGFR If Africn Am 68 mL/min/1.73 (Normal) eGFR If NonAfricn Am 59 mL/min/1.73 (Abnormal) Creatinine, Serum 0.95 mg/dL (Normal) Range: 0.57-1.00 BUN 22 mg/dL (Normal) Range: 8-27 Glucose, Serum 98 mg/dL (Normal) Range: 65-99 61-Kwj-39799:30 MICROALBUMIN: CREATININE RATIO Comments: PATIENT WAS FASTINGPERFORMED BY: [facility] [id number] ([id number]) AND (28203) Microalb/Creat Ratio 5.5 {mg/g_creat} (Normal) Range: 0.0-30.0 Creatinine, Urine 262.6 mg/dL (Normal) Range: 15.0-278.0 Microalbumin, Urine 14.4 ug/mL (Normal) Range: 0.0-17.0 :19 AORTA Radiology Report See Note (Normal) Comments: PROCEDURES: ULTRASOUND ABDOMINAL AORTA REASON FOR EXAM: Female, 76 years old. Atherosclerosis TECHNIQUE: Ultrasound evaluation of the aorta was performed withreal-time Ultrasonography with static wood scale imaging. COMPARISON: None. FINDINGS:There is mild atherosclerotic plaque formation of the abdominal aorta. Aorta measure longitudinally: Proximal 2.6 cm. Middle 1.7 cm. Distal1.4cm.Aort a measure transversely: Proximal 2.1 cm. Middle 1.9 cm. Distal1.7cm. Right iliac artery measures longitudinally: 1.1 cm.Right iliac artery measure transversely: 1.4 cm. Left iliac artery measures l ongitudinally: 1.4 cm.Left iliac artery measure transversely: 1.4 cm. There is no demonstrated abdominal aortic aneurysm. IMPRESSION:No aneurysm seen. To consult with a radiologist regarding this repo rt, please call our [id number] line @ Dictated on 01/24/12 0917 by Jaron Lindo MDTranscribed on 01/24/12 2329 by ITS IMPORTSign by Jaron Lindo MD on 01/24/12 2330 Sign by: Jaron Lindo MD 6-Sfz-[id number]:46 CHEST, PA AND LATERAL Radiology Report See Note (Normal) Comments: PROCEDURE: X-RAY CHEST REASON FOR EXAM: Female, 76 years old. Chronic cough for 11 days. TECHNIQUE: PA and lateral views of the chest. COMPARISON: 09/02/2010 FINDINGS:The lungs are expanded. T here is no demonstrated parenchymalabnormality.There is no demonstrated pleural abnormality. There is mild cardiac enlargement. Normal mediastinum and taylor. Normal visualized pulmonary arteries.Thereis atherosclerotic calcification of the aortic arch with tortuosity. Normal visualized thoracic spine. Normal visualized ribs, clavicles, andshoulders. There is no demonstrated abnormality of the visuali zed soft tissuestructures of the upper abdomen. IMPRESSION:No acute chest disease. Mild cardiomegaly. Arteriosclerotic vascular disease of aorta. To consult with a radiologist regarding this report, ple ase call our [id number] line @ Dictated on 01/03/12 1257 by Rakesh Benavidez MDTranscribed on 01/04/12 1540 by ITS IMPORTSign by Rakesh Benavidez MD on 01/04/12 1540 Sign by: Rakesh Benavidez MD 77-Vab-68238:30 MYOCARD PERF STRESS/REST MULT Radiology Report See Note (Normal) Comments: EXERCISE STRESS TEST HISTORYA 75-year-old lady with history of abnormal EKG. YUYTWAOXT75.0 mCi of Sestamibi was injected at rest. The patient exercisedaccording to the regular James protocol for a dura tion of 5 minutes and33 seconds. Attaining 82% maximum predicted heart rate with maximum heartrate of 120 beats a minute. Workload of 7 METS. At peak exercise 34.0 mCiof Sestamibi was then injected. Str ess images were then obtained. Stressand rest images were reconstructed and compared in the short axis,vertical long and horizontal long axes. Gated images were also obtained. RESULTSReview of the str ess images demonstrate normal uptake of tracer noted inall areas of the myocardium. The resting images similarly demonstratenormal uptake of tracer in all areas of the myocardium. The gatedejection fr action is noted to be 69%, No reversibility is noted tosuggest ischemia. CONCLUSION1. Exercise stress test with no evidence of ischemia noted at a moderateworkload.2. Preserved ejection fraction. Dic tated on 06/30/11 0134 by Alejandro ALEXANDRE,CyrilTranscribed on 07/01/11 0530 by LIZBET CEDILLOUERITESign by Alejandro ALEXANDRE,[place] on 07/10/11 1645 Sign by: ___ Alejandro ALEXANDRE,Jose 66-Wzd-770036:03 Creatinine Clearance Comments: PERFORMED BY: [employer] [place] [id number] Information: 06/26/11@7AM 06/27/11@7AM Creatinine Clearance 68 mL/min (Abnormal) Range: 88-128 Comments: The above range is based on 1.73 square meter average body surfacearea. Creatinine, Ur 24hr 919.8 {mg/24_hr} (Normal) Range: 800.0-1800.0 Creatinine, Urine 43.8 mg/dL (Normal) Range: 15.0-278.0 eGFR If Africn Am 69 mL/min/1.73 (Normal) Comments: Note: A persistent eGFR <60 mL/min/1.73 m2 (3 months or more) mayindicate chronic kidney disease. An eGFR >59 mL/min/1.73 m2 with anelevated urine protein also may indicate chronic kidney disease.Calculated using CKD-EPI formula. eGFR If NonAfricn Am 60 mL/min/1.73 (Normal) Creatinine, Serum 0.94 mg/dL (Normal) Range: 0.57-1.00 07-Xsz-308971:03 Protein Total, Qn, 24-Hr Comments: PERFORMED BY: [facility] [place] [id number] Urine Prot,24hr calculated <31.5 {mg/24_hr} (Normal) Range: 30.0-150.0 Protein,Total,Urine <1.5 mg/dL (Normal) Range: 0.0-15.0 Comments: Verified by repeat analysis :21 LIPID PANEL (96737) Comments: in three months (approximately); PATIENT WAS FASTINGPERFORMED BY: [employer] [facility] [id number] Information: [id number] LDL/HDL Ratio 2.1 {ratio_units} (Normal) Range: 0.0-3.2 LDL Cholesterol Calc 151 mg/dL (Abnormal) Range: 0-99 VLDL Cholesterol Thanh 22 mg/dL (Normal) Range: 5-40 HDL Cholesterol 73 mg/dL (Normal) Comments: According to ATP-III Guidelines, HDL-C >59 mg/dL is considered anegative risk factor for CHD. Triglycerides 109 mg/dL (Normal) Range: 0-149 Cholesterol, Total 246 mg/dL (Abnormal) Range: 100-199 :23 Microscopic Examination Comments: PATIENT WAS FASTINGPERFORMED BY: [employer] [facility] [id number] Bacteria Few (Normal) Mucus Threads Present (Normal) Crystal Type Amorphous Sediment (Normal) Crystals Present (Abnormal) Cast Type Hyaline casts (Normal) Casts Present {/lpf} (Abnormal) Epithelial Cells (non renal) 0-10 {/hpf} (Normal) Range: 0 - 10 RBC 4-10 {/hpf} (Abnormal) Range: 0 - 3 WBC 0-5 {/hpf} (Normal) Range: 0 - 5 :23 CBC WITH MANUAL DIFF (69324) Comments: PATIENT WAS FASTINGPERFORMED BY: [employer] [facility] [id number] Immature Grans (Abs) 0.0 {x10E3/uL} (Normal) Range: 0.0-0.1 Immature Granulocytes 0 % (Normal) Range: 0-2 Comments: Please note reference interval change Baso (Absolute) 0.0 {x10E3/uL} (Normal) Range: 0.0-0.2 Eos (Absolute) 0.3 {x10E3/uL} (Normal) Range: 0.0-0.4 Monocytes(Absolute) 0.7 {x10E3/uL} (Normal) Range: 0.1-1.0 Lymphs (Absolute) 2.0 {x10E3/uL} (Normal) Range: 0.7-4.5 Neutrophils (Absolute) 2.1 {x10E3/uL} (Normal) Range: 1.8-7.8 Basos 1 % (Normal) Range: 0-3 Eos 5 % (Normal) Range: 0-7 Monocytes 13 % (Normal) Range: 4-13 Lymphs 40 % (Normal) Range: 14-46 Neutrophils 41 % (Normal) Range: 40-74 Platelets 343 {x10E3/uL} (Normal) Range: 140-415 RDW 13.1 % (Normal) Range: 11.7-15.0 MCHC 32.8 g/dL (Normal) Range: 32.0-36.0 MCH 31.2 pg (Normal) Range: 27.0-34.0 MCV 95 fL (Normal) Range: 80-98 Hematocrit 40.8 % (Normal) Range: 34.0-44.0 Hemoglobin 13.4 g/dL (Normal) Range: 11.5-15.0 RBC 4.29 {x10E6/uL} (Normal) Range: 3.80-5.10 WBC 5.1 {x10E3/uL} (Normal) Range: 4.0-10.5 :23 LIPID PANEL ([id number]) Comments: PATIENT WAS FASTINGPERFORMED BY: [facility]CoHam[facility] CenterSndddx4419 [facility] [id number] LDL/HDL Ratio 2.0 {ratio_units} (Normal) Range: 0.0-3.2 LDL Cholesterol Calc 146 mg/dL (Abnormal) Range: 0-99 VLDL Cholesterol Thanh 26 mg/dL (Normal) Range: 5-40 HDL Cholesterol 72 mg/dL (Normal) Comments: According to ATP-III Guidelines, HDL-C >59 mg/dL is considered anegative risk factor for CHD. Triglycerides 132 mg/dL (Normal) Range: 0-149 Cholesterol, Total 244 mg/dL (Abnormal) Range: 100-199 :23 METABOLIC PANEL, COMPREHENSIVE Comments: PATIENT WAS FASTINGPERFORMED BY: [employer]6370 [facility] [id number] ([id number]) ALT (SGPT) 32 [iU]/L (Normal) Range: 0-40 AST (SGOT) 34 [iU]/L (Normal) Range: 0-40 Alkaline Phosphatase, S 60 [iU]/L (Normal) Range: 25-165 Bilirubin, Total 0.7 mg/dL (Normal) Range: 0.0-1.2 A/G Ratio 2.3 (Normal) Range: 1.1-2.5 Globulin, Total 2.0 g/dL (Normal) Range: 1.5-4.5 Albumin, Serum 4.6 g/dL (Normal) Range: 3.5-4.8 Protein, Total, Serum 6.6 g/dL (Normal) Range: 6.0-8.5 Calcium, Serum 9.5 mg/dL (Normal) Range: 8.6-10.2 Carbon Dioxide, Total 25 mmol/L (Normal) Range: 20-32 Chloride, Serum 100 mmol/L (Normal) Range: 97-108 Potassium, Serum 4.0 mmol/L (Normal) Range: 3.5-5.2 Sodium, Serum 141 mmol/L (Normal) Range: 135-145 BUN/Creatinine Ratio 15 (Normal) Range: 11-26 eGFR If Africn Am 68 mL/min/1.73 (Normal) Comments: Note: A persistent eGFR <60 mL/min/1.73 m2 (3 months or more) mayindicate chronic kidney disease. An eGFR >59 mL/min/1.73 m2 with anelevated urine protein also may indicate chronic kidney disease.Calculated using CKD-EPI formula. eGFR If NonAfricn Am 59 mL/min/1.73 (Abnormal) Creatinine, Serum 0.95 mg/dL (Normal) Range: 0.57-1.00 BUN 14 mg/dL (Normal) Range: 8-27 Glucose, Serum 93 mg/dL (Normal) Range: 65-99 :23 URINALYSIS, W/ MICRO (14471) Comments: PATIENT WAS FASTINGPERFORMED BY: [employer] [facility] [id number]; appt 06/23/11 Microscopic Examination See below: (Normal) Nitrite, Urine Negative (Normal) Urobilinogen,Semi-Qn 0.2 mg/dL (Normal) Range: 0.0-1.9 Bilirubin Negative (Normal) Occult Blood Negative (Normal) Ketones Negative (Normal) Glucose Negative (Normal) Protein 1+ (Abnormal) WBC Esterase Negative (Normal) Appearance Cloudy (Abnormal) Urine-Color Yellow (Normal) pH 6.5 (Normal) Range: 5.0-7.5 Specific [place] 1.028 (Normal) Range: 1.005-1.030 44-Uem-619403:23 BILAT SCRN DIGITAL & CAD Radiology Report See Note (Normal) Comments: MAMMOGRAPHY - BILATERAL SCREENING INDICATION:Female, 75 years old. Routine annual screening examination. PERTINENT HISTORY:Non-contributory. TECHNIQUE:Digital examination. Mediolateral oblique (MLO) a nd craniocaudad (CC)views of both breasts were obtained. CAD: CAD was performed on thisstudy. COMPARISON:January 14, 2010. FINDINGS:The breast composition is composed of scattered fibroglandular densities .No new densities are seen. There are scattered calcifications. Thecalcifications are unchanged from the previous examination. No other significant abnormalities are identified. IMPRESSION:Normal bila teral screening mammogram. One year follow-up recommended. (1) ASSESSMENT CATEGORY:BIRADS Category 2: Benign finding(s). A letter regarding these resultswill be sent to the patient by the facility wi thin 30 days. Approximately 10% of breast cancers are not detected by mammography. Anormal mammogram should not delay biopsy of a clinically suspiciousabnormality. Dictated on 01/25/11 0931 by ELVIS CALVIN MDTranscribed on 01/25/11 2350 by ITS IMPORTSign by ELVIS SMITH MD on 01/25/11 2351 Sign by: ELVIS SMITH MD 23-Plp-307227:01 Urinalysis, Office (53293) UA - BILIRUBIN Negative (Normal) UA - BLOOD Negative (Normal) UA - GLUCOSE Negative (Normal) UA - KETONES Negative mg/dL (Normal) UA - LEUKOCYTE ESTERASE Negative (Normal) UA - NITRITE Negative (Normal) UA - PH 7.0 (Normal) UA - PROTEIN Negative mg/dL (Normal) UA - SPECIFIC GRAVITY 1.015 (Normal) URINE UROBILINGN JOSÉ MIGUEL TIMED Normal mg/dL (Normal) Microscopic Examination Comments: PATIENT WAS FASTINGPERFORMED BY: [employer]fzzv3180 [facility] [id number] Bacteria Few (Normal) Mucus Threads Present (Normal) Epithelial Cells (non renal) 0-10 {/hpf} (Normal) Range: 0 - 10 RBC 0-3 {/hpf} (Normal) Range: 0 - 3 WBC 0-5 {/hpf} (Normal) Range: 0 - 5 LIPID PANEL (40040) Comments: PATIENT WAS FASTINGPERFORMED BY: [facility]iaHam[facility] Health CenterLcqewa8087 [facility] [id number] LDL/HDL Ratio 1.4 {ratio_units} (Normal) Range: 0.0-3.2 HDL Cholesterol 76 mg/dL (Normal) Comments: According to ATP-III Guidelines, HDL-C >59 mg/dL is considered anegative risk factor for CHD. LDL Cholesterol Calc 110 mg/dL (Abnormal) Range: 0-99 VLDL Cholesterol Thanh 23 mg/dL (Normal) Range: 5-40 Cholesterol, Total 209 mg/dL (Abnormal) Range: 100-199 Triglycerides 117 mg/dL (Normal) Range: 0-149 URINALYSIS, W/ MICRO (13251) Comments: PATIENT WAS FASTINGPERFORMED BY: [facility]iaHam[facility] CenterCdlorg4042 [facility] [id number] Microscopic Examination See below: (Normal) Bilirubin Negative (Normal) Nitrite, Urine Negative (Normal) Occult Blood Negative (Normal) Urobilinogen,Semi-Qn 0.2 mg/dL (Normal) Range: 0.0-1.9 Appearance Clear (Normal) Glucose Negative (Normal) Ketones Negative (Normal) Protein 1+ (Abnormal) WBC Esterase Negative (Normal) pH 6.0 (Normal) Range: 5.0-7.5 Specific [place] 1.031 (Abnormal) Range: 1.005-1.030 Urine-Color Yellow (Normal) 69-Hpa-15317:28 METABOLIC PANEL, COMPREHENSIVE Comments: PATIENT WAS FASTINGPERFORMED BY: [facility]iaHam[facility] Health CenterIogqeb9668 [facility] [id number] ([id number]) Alkaline Phosphatase, S 47 [iU]/L (Normal) Range: 25-165 ALT (SGPT) 28 [iU]/L (Normal) Range: 0-40 AST (SGOT) 32 [iU]/L (Normal) Range: 0-40 A/G Ratio 2.0 (Normal) Range: 1.1-2.5 Albumin, Serum 4.4 g/dL (Normal) Range: 3.5-4.8 Bilirubin, Total 0.4 mg/dL (Normal) Range: 0.0-1.2 Globulin, Total 2.2 g/dL (Normal) Range: 1.5-4.5 Calcium, Serum 9.0 mg/dL (Normal) Range: 8.6-10.2 Carbon Dioxide, Total 24 mmol/L (Normal) Range: 20-32 Protein, Total, Serum 6.6 g/dL (Normal) Range: 6.0-8.5 Chloride, Serum 100 mmol/L (Normal) Range: 97-108 Potassium, Serum 3.6 mmol/L (Normal) Range: 3.5-5.2 Sodium, Serum 138 mmol/L (Normal) Range: 135-145 BUN/Creatinine Ratio 17 (Normal) Range: 11-26 eGFR AfricanAmerican 59 mL/min/1.73 Comments: Note: Persistent reduction for 3 months or more in an eGFR<60 mL/min/1.73 m2 defines CKD. Patients with eGFR values>/=60 mL/min/1.73 m2 may also have CKD if evidence of persistentproteinur ia is (Abnormal) present. Additional information may be found atwww.kdoqi.org. eGFR 49 mL/min/1.73 (Abnormal) BUN 18 mg/dL (Normal) Range: 8-27 Creatinine, Serum 1.09 mg/dL (Abnormal) Range: 0.57-1.00 Glucose, Serum 98 mg/dL (Normal) Range: 65-99 80-Seg-88278:28 CBC WITH MANUAL DIFF Comments: PATIENT WAS FASTINGPERFORMED BY: [facility] [id number] Information: [id number] ([id number]) Immature Grans (Abs) 0.0 {x10E3/uL} (Normal) Range: 0.0-0.1 Immature Granulocytes 0 % (Normal) Range: 0-1 Baso (Absolute) 0.0 {x10E3/uL} (Normal) Range: 0.0-0.2 Eos (Absolute) 0.0 {x10E3/uL} (Normal) Range: 0.0-0.4 Lymphs (Absolute) 2.8 {x10E3/uL} (Normal) Range: 0.7-4.5 Monocytes(Absolute) 0.6 {x10E3/uL} (Normal) Range: 0.1-1.0 Neutrophils (Absolute) 2.2 {x10E3/uL} (Normal) Range: 1.8-7.8 Basos 0 % (Normal) Range: 0-3 Eos 0 % (Normal) Range: 0-7 Monocytes 11 % (Normal) Range: 4-13 Lymphs 50 % (Abnormal) Range: 14-46 Neutrophils 39 % (Abnormal) Range: 40-74 MCHC 33.6 g/dL (Normal) Range: 32.0-36.0 Platelets 309 {x10E3/uL} (Normal) Range: 140-415 RDW 13.1 % (Normal) Range: 11.7-15.0 MCH 31.4 pg (Normal) Range: 27.0-34.0 MCV 94 fL (Normal) Range: 80-98 Hematocrit 40.5 % (Normal) Range: 34.0-44.0 Hemoglobin 13.6 g/dL (Normal) Range: 11.5-15.0 RBC 4.33 {x10E6/uL} (Normal) Range: 3.80-5.10 WBC 5.6 {x10E3/uL} (Normal) Range: 4.0-10.5 :45 CHEST, PA AND LATERAL Radiology Report See Note (Normal) Comments: CLINICAL:Female, 74 years old. Asthma X-RAY EXAMINATION - CHEST TECHNIQUE:PA and lateral views of the chest. COMPARISON:None. FINDINGS: The lungs are expanded. There is no demonstrated pu lmonary pare nchymalabnormality. There is no demonstrated pleural abnormality. The heart is normal in size and morphology. Normal mediastinum and taylor. Normal visualized pulmonary arteries. Normal visualized aorti c arch anddescending thoracic aorta. Normal osseous structures. IMPRESSION:Normal x-ray examination of the chest. Dictated on 09/02/10852 by Martin SmithieTranscribed on 09/02/10852 by JULIETA SHIPLEY MCKESSONSign by Pao Cristobal on 09/06/1049 Sign by: Pao Cristobal 26-Iyb-327262:35 N-Telopeptide, Urine Comments: PERFORMED BY: BN [facility] Npasqaclzv5914 [facility] [id number] BY: CB [facility] Szjxsr3849 [facility] [id number] Information: 06/23@7AM 06/24@7AM Interpretive Guide: SPRCS (Normal) Comments: The N-telopeptide and Creatinine are used to calculatethe N-telo/Creat. Ratio which is referred to as NTx.Suggested guidelines for the clinical use of NTx are asfollows:1. Menopausal Women not on Ho rmone Replacement Therapy(HRT): Women with a baseline NTx value >38 are atsignificant risk for a decrease in bone mineraldensity (BMD) after 1 year compared to women on HRT.The probability of a decl ine in BMD increaseswith NTx value as follows: (1):Baseline NTx Probability of Decrease in BMD18- 38 1.4 p=0.2838- 51 2.5 p=0.0351- 67 3.8 p=0.010852-104 17.3 p=0.92331. Menopausal Women Receiving Antiresorptive Therapy: Theprobability that treatment is effective after threemonths is increased when the measured NTx va lue is<or=38 nM BCE/mM CERTIFIED MASTER SAFECRACKER, or NTx has decreased >or=30% frombaseline (1)..3. Patients with Paget's Disease of Bone:The probability that treatment is effective after onemonth is increased when the measured NTx value is within the reference range, or NTx has decreased >or=30%from baseline (2)..Fermin CH, Aysha NH, Iraj GS, et al. Am J Med, 102:29-37,1996. (1):M757, 1996. N-telo/Creat. Ratio 10 {nM_BCE/mM_Cr} (Normal) Range: 5-65 Creatinine, Urine 38.2 mg/dL (Normal) Range: 15.0-278.0 N-telopeptide 34 {nmol_BCE} (Normal) :11 Urinalysis, Office (45386) UA - LEUKOCYTE ESTERASE Negative (Normal) UA - NITRITE Negative (Normal) URINE UROBILINGN JOSÉ MIGUEL TIMED 2 mg/dL (Normal) UA - PROTEIN Negative mg/dL (Normal) UA - PH 6.0 (Normal) UA - BLOOD Hemolyzed Trace (Normal) UA - SPECIFIC GRAVITY 1.020 (Normal) UA - KETONES Small mg/dL (Normal) UA - BILIRUBIN Small (Normal) UA - GLUCOSE Negative (Normal) :16 MYOCARD PERF STRESS/REST MULT Radiology Report See Note (Normal) Comments: Exam Number: [id number] MYOCARDIAL PERFUSION SCAN TECHNIQUEThe patient was injected with 10.5 mCi of Tc99m Cardiolite andsubsequently rest SPECT Cardiolite nuclear imaging was obtained in thehorizontal l brandan, vertical long, and short axes views. The patientexercised on a James protocol for 6 minutes achieving a peak heartrate of 142 beats per minute (96% predicted maximum heart rate) with apeak blood p ressure of 232/104 mmHg a peak MET capacity of 7 METs. Thepatient was injected with 36.2 mCi of Tc99m Cardiolite andsubsequently stress SPECT Cardiolite nuclear imaging was obtained inthe horizontal jamar g, vertical long, and short axes views. GatedCardiolite study at peak stress was obtained. INTERPRETATIONRest SPECT Cardiolite nuclear imaging demonstrates an area ofdiminished tracer uptake in the dis geni anteroseptal segments whichappears to be somewhat less prominent and/or normalizing status poststress. Otherwise, there appears to be, following stress, relativeuniform tracer uptake. There is end systolic thickening andbrightening and on the gated Cardiolite study myocardial thickeningand inward wall motion. The reported LVEF is 62%. The aforementionedchanges appear compatible with shifting s oft tissue attenuation/breastattenuation being more prominent at rest as opposed to stress. IMPRESSION1. Rest and stress SPECT Cardiolite nuclear imaging demonstratemyocardial perfusion changes appeari ng compatible with shifting softtissue/breast attenuation being more prominent at rest as opposed tostress with no myocardial perfusion changes considered diagnostic forstress induced myocardial ischemi a or previous myocardialinjury/infarction.2. The gated Cardiolite study reports an LVEF of 62%. Reported By: ROMEL SILVERIO M.D. 92-Mwi-693221:11 BRAIN W/WO CONTRAST Radiology Report See Note (Normal) Comments: Exam Number: [id number] CLINICAL:73-year-old female with tremors for over one year, hypertension. MRI BRAIN WITHOUT AND WITH CONTRAST TECHNIQUE:Standardized multiplanar fat and water weighted pulse seque nces wereobtained. 15 ml of Magnevist contrast material was administeredintravenously for the contrast portion of the examination. COMPARISON:CT dated February 08, 2010. FINDINGS:There is mild widening of t he cortical sulci, fissures, andventricles secondary to volume loss. No acute infarction is identified on the diffusion sequence. Thereare very slight white matter signal changes bilaterally the likely representing mild chronic small vessel ischemic disease. The basalganglia and thalami appear normal. No hemorrhage or mass lesion is identified. No abnormal enhancementis seen. Normal flow voids withi n the major intracranial circulationsuggesting patency by spin echo criteria. There is no extra-axial fluid accumulation. No lesion identified in the pituitary, optic chiasm, or pineal. Normal basal cis terns. Normal midbrain, tete and medulla. There is volume loss in the cerebellum. Normal visualized internal auditory canals. No acute orbital process identified. Slight mucosal thickening in the ethmo id and maxillary sinuses. Normal calvarium and skull base. Normal visualized soft tissuestructures. No significant finding in the visualized upper cervicalspine. IMPRESSION:No acute-appearing intracra nial abnormality. Mild volume loss and very mild chronic small vessel ischemic changes. Reported By: ELVIS BEARD M.D. 05-Qno-778811:39 Basic Metabolic Panel (8) Comments: A courtesy copy of this report has been sent [phone].PERFORMED BY: [facility]6370 [facility] [id number] Information: [id number] Calcium, Serum 9.7 mg/dL (Normal) Range: 8.6-10.2 Carbon Dioxide, Total 24 mmol/L (Normal) Range: 20-32 Chloride, Serum 99 mmol/L (Normal) Range: 97-108 Potassium, Serum 4.1 mmol/L (Normal) Range: 3.5-5.2 BUN/Creatinine Ratio 15 (Normal) Range: 8-27 Sodium, Serum 139 mmol/L (Normal) Range: 135-145 eGFR >59 mL/min/1.73 (Normal) eGFR AfricanAmerican >59 mL/min/1.73 Comments: Note: Persistent reduction for 3 months or more in an eGFR<60 mL/min/1.73 m2 defines CKD. Patients with eGFR values>/=60 mL/min/1.73 m2 may also have CKD if evidence of persistentproteinuria is (Normal) present. Additional information may be found [email or web address]. BUN 13 mg/dL (Normal) Range: 5-26 Creatinine, Serum 0.85 mg/dL (Normal) Range: 0.57-1.00 Glucose, Serum 90 mg/dL (Normal) Range: 65-99 :15 MICROALBUMIN: CREATININE RATIO Comments: PATIENT WAS FASTINGPERFORMED BY: [employer]6[address] [facility] [id number] ([id number]) AND (68181) Microalb/Creat Ratio 4.3 {mg/g_creat} (Normal) Range: 0.0-30.0 Microalbumin, Urine 6.1 ug/mL (Normal) Range: 0.0-17.0 Creatinine, Urine 140.7 mg/dL (Normal) Range: 15.0-278.0 :15 METABOLIC PANEL, COMPREHENSIVE Comments: PATIENT WAS FASTINGPERFORMED BY: [facility] CenterRfookb4863 [facility] [id number] (60042) ALT (SGPT) 30 [iU]/L (Normal) Range: 0-40 Alkaline Phosphatase, S 47 [iU]/L (Normal) Range: 25-165 AST (SGOT) 29 [iU]/L (Normal) Range: 0-40 Bilirubin, Total 0.7 mg/dL (Normal) Range: 0.0-1.2 A/G Ratio 1.9 (Normal) Range: 1.1-2.5 Albumin, Serum 4.2 g/dL (Normal) Range: 3.5-4.8 Globulin, Total 2.2 g/dL (Normal) Range: 1.5-4.5 Calcium, Serum 9.7 mg/dL (Normal) Range: 8.6-10.2 Protein, Total, Serum 6.4 g/dL (Normal) Range: 6.0-8.5 Carbon Dioxide, Total 26 mmol/L (Normal) Range: 20-32 Chloride, Serum 103 mmol/L (Normal) Range: 97-108 Potassium, Serum 4.4 mmol/L (Normal) Range: 3.5-5.2 Sodium, Serum 141 mmol/L (Normal) Range: 135-145 BUN/Creatinine Ratio 16 (Normal) Range: 8-27 eGFR AfricanAmerican >59 mL/min/1.73 Comments: Note: Persistent reduction for 3 months or more in an eGFR<60 mL/min/1.73 m2 defines CKD. Patients with eGFR values>/=60 mL/min/1.73 m2 may also have CKD if evidence of persistentproteinuria is (Normal) present. Additional information may be found [email or web address]. Creatinine, Serum 0.94 mg/dL (Normal) Range: 0.57-1.00 eGFR 58 mL/min/1.73 (Abnormal) BUN 15 mg/dL (Normal) Range: 5-26 Glucose, Serum 94 mg/dL (Normal) Range: 65-99 24-Rgq-01358:15 LIPID PANEL (77099) Comments: PATIENT WAS FASTINGPERFORMED BY: [facility]Co[facility] CenterOadwbt2274 [facility] [id number] LDL Cholesterol Calc 150 mg/dL (Abnormal) Range: 0-99 LDL/HDL Ratio 2.1 {ratio_units} (Normal) Range: 0.0-3.2 HDL Cholesterol 72 mg/dL (Normal) Comments: According to ATP-III Guidelines, HDL-C >59 mg/dL is considered anegative risk factor for CHD. VLDL Cholesterol Thanh 17 mg/dL (Normal) Range: 5-40 Triglycerides 87 mg/dL (Normal) Range: 0-149 Cholesterol, Total 239 mg/dL (Abnormal) Range: 100-199 :15 CBC WITH MANUAL DIFF Comments: PATIENT WAS FASTINGPERFORMED BY: [facility] [id number] Information: ADD [id number] AND DRAW FEE 99 9614 (47575) Immature Grans (Abs) 0.0 {x10E3/uL} (Normal) Range: 0.0-0.1 Immature Granulocytes 0 % (Normal) Range: 0-1 Baso (Absolute) 0.0 {x10E3/uL} (Normal) Range: 0.0-0.2 Eos (Absolute) 0.1 {x10E3/uL} (Normal) Range: 0.0-0.4 Lymphs (Absolute) 1.8 {x10E3/uL} (Normal) Range: 0.7-4.5 Monocytes(Absolute) 0.8 {x10E3/uL} (Normal) Range: 0.1-1.0 Neutrophils (Absolute) 3.2 {x10E3/uL} (Normal) Range: 1.8-7.8 Basos 1 % (Normal) Range: 0-3 Eos 2 % (Normal) Range: 0-7 Lymphs 30 % (Normal) Range: 14-46 Monocytes 14 % (Abnormal) Range: 4-13 Neutrophils 53 % (Normal) Range: 40-74 Platelets 314 {x10E3/uL} (Normal) Range: 140-415 RDW 13.0 % (Normal) Range: 11.7-15.0 MCH 30.7 pg (Normal) Range: 27.0-34.0 MCHC 32.5 g/dL (Normal) Range: 32.0-36.0 MCV 95 fL (Normal) Range: 80-98 Hematocrit 40.0 % (Normal) Range: 34.0-44.0 Hemoglobin 13.0 g/dL (Normal) Range: 11.5-15.0 RBC 4.23 {x10E6/uL} (Normal) Range: 3.80-5.10 WBC 6.0 {x10E3/uL} (Normal) Range: 4.0-10.5 22-Lgm-920817:33 CELINE CULTURE-OTHER (21521) Comments: PATIENT NOT FASTINGPERFORMED BY: LATA [facility] Mviuhe86[address] [place] [id number] Information: SRC:CARLOS [id number] Result 1 RRF (Normal) Comments: Routine respiratory graeme Upper Respiratory Culture Final report (Normal) 38-Gbs-354914:14 Rapid Strep Test, Office (11440) Rapid Strep Test, Office Negative (Normal) 28-Aej-176986:38 BRAIN/HEAD W/WO CONTRAST Radiology Report See Note (Normal) Comments: Exam Number: [id number] CT SCAN OF THE HEAD Multiple axial tomographic images were obtained with and withoutintravenous contrast administration. HISTORYThis is a 74-year-old female patient with history o f tremors of theleft hand. FINDINGSThere is no evidence of intracranial hemorrhage. There is no evidenceof mass effect. There is no evidence of hydrocephalus. Focalcalcifications are seen in the bas al ganglia bilaterally. Thisfinding is within normal limits. Following intravenous contrast administration, there is abnormalenhancement. IMPRESSIONNormal CT scan with and without intravenous contrast. Reported By: ROGELIO KUMAR 10-Fhv-422482:47 BILAT SCRN DIGITAL & CAD Radiology Report See Note (Normal) Comments: Exam Number: [id number] MAMMOGRAM, BILATERAL SCREENING DIGITAL AND CAD HISTORYRoutine screening. Full field digital images were obtained in mediolateral oblique andcraniocaudal projections. CAD images w ere reviewed. The current study is compared to the examinations of June and September 08, 2008 from the [facility]. There is moderately dense fibroglandular parench yma present. There isno skin thickening or retraction and no architectural distortion.There are scattered small densities which were present previously.There are also several calcifications on the left and a small numberon the right. These findings are unchanged. If there is no suspiciouspalpable abnormality, followup mammogram in 1 year is recommended. IMPRESSIONThere is no radiographic evidence of malignancy identified. FINAL ASSESSMENTBenign findings. BIRADS Category 2. A letter regarding these results has been sent to the patient. This interpretation was rendered by a radiologist certified un marjan theMammography Quality Standards Act of 1992 (MQSA). The mammograms werealso examined with computer-aided detection software ([employer] Reported By: ELVIS SMITH M.D. 56-Rnt-876231:46 DEXA BONE DENSITY STUDY () Radiology Report See Note (Normal) Comments: Exam Number: [id number] DEXA AXIAL SKELETON A DEXA scan was obtained. HISTORYThizach is a 74-year-old female patient with history of postmenopausalscreening. FINDINGSAt the level of the lumbar s pine, the pa tient's bone mineral densitymeasures 1.09 g/cm2. This gives the patient a T-score of -0.8 and aZ-score of 1. This is borderline osteopenia. Since prior examinationdated January 15, 2002, the patient's bone mineral density increased by4.5%. At the level of the femoral neck, the patient's bone mineral densitymeasures 0.778 g/cm2. This gives the patient a T-score of -1.9 and aZ-score of 0. This is in keeping with osteopenia. Since priorexamination dated January 15, 2002, there has been a loss of 5.7% ofbone density. IMPRESSIONOsteopenia. Reported By: ROGELIO KUMAR 08-Jan-20109:14 TSH (47207) Comments: PATIENT WAS FASTINGPERFORMED BY: [employer] LabCoBrainspace CorporationYmoanr8305 [facility] [id number] TSH 1.980 {uIU/mL} (Normal) Range: 0.450-4.500 08-Jan-20109:14 METABOLIC PANEL, COMPREHENSIVE Comments: PATIENT WAS FASTINGPERFORMED BY: [employer] [facility] Hkzxei2515 [facility] [id number] (32808) ALT (SGPT) 17 [iU]/L (Normal) Range: 0-40 AST (SGOT) 25 [iU]/L (Normal) Range: 0-40 A/G Ratio 2.1 (Normal) Range: 1.1-2.5 Albumin, Serum 4.6 g/dL (Normal) Range: 3.5-4.8 Alkaline Phosphatase, S 55 [iU]/L (Normal) Range: 25-165 Bilirubin, Total 1.0 mg/dL (Normal) Range: 0.1-1.2 Globulin, Total 2.2 g/dL (Normal) Range: 1.5-4.5 Calcium, Serum 9.9 mg/dL (Normal) Range: 8.6-10.2 Carbon Dioxide, Total 25 mmol/L (Normal) Range: 20-32 Chloride, Serum 100 mmol/L (Normal) Range: 97-108 Protein, Total, Serum 6.8 g/dL (Normal) Range: 6.0-8.5 BUN/Creatinine Ratio 19 (Normal) Range: 8-27 Potassium, Serum 4.5 mmol/L (Normal) Range: 3.5-5.2 Sodium, Serum 141 mmol/L (Normal) Range: 135-145 eGFR 57 mL/min/1.73 (Abnormal) eGFR AfricanAmerican >59 mL/min/1.73 Comments: Note: Persistent reduction for 3 months or more in an eGFR<60 mL/min/1.73 m2 defines CKD. Patients with eGFR values>/=60 mL/min/1.73 m2 may also have CKD if evidence of persistentproteinuria is (Normal) present. Additional information may be found [email or web address]. BUN 18 mg/dL (Normal) Range: 5-26 Creatinine, Serum 0.96 mg/dL (Normal) Range: 0.57-1.00 Glucose, Serum 91 mg/dL (Normal) Range: 65-99 :14 LIPID PANEL (87725) Comments: PATIENT WAS FASTINGPERFORMED BY: [facility] [id number] HDL Cholesterol 84 mg/dL (Normal) Comments: According to ATP-III Guidelines, HDL-C >59 mg/dL is considered anegative risk factor for CHD. LDL Cholesterol Calc 143 mg/dL (Abnormal) Range: 0-99 LDL/HDL Ratio 1.7 {ratio_units} (Normal) Range: 0.0-3.2 VLDL Cholesterol Thanh 17 mg/dL (Normal) Range: 5-40 Cholesterol, Total 244 mg/dL (Abnormal) Range: 100-199 Triglycerides 85 mg/dL (Normal) Range: 0-149 :14 CBC WITH MANUAL DIFF Comments: PATIENT WAS FASTINGPERFORMED BY: [employer] [facility] [id number] Information: [id number] (79418) Baso (Absolute) 0.1 {x10E3/uL} (Normal) Range: 0.0-0.2 Eos (Absolute) 0.1 {x10E3/uL} (Normal) Range: 0.0-0.4 Lymphs (Absolute) 2.3 {x10E3/uL} (Normal) Range: 0.7-4.5 Monocytes(Absolute) 0.7 {x10E3/uL} (Normal) Range: 0.1-1.0 Neutrophils (Absolute) 3.2 {x10E3/uL} (Normal) Range: 1.8-7.8 Basos 1 % (Normal) Range: 0-3 Eos 1 % (Normal) Range: 0-7 Lymphs 37 % (Normal) Range: 14-46 Monocytes 11 % (Normal) Range: 4-13 Neutrophils 50 % (Normal) Range: 40-74 Platelets 329 {x10E3/uL} (Normal) Range: 140-415 Hematocrit 41.4 % (Normal) Range: 34.0-44.0 MCH 31.4 pg (Normal) Range: 27.0-34.0 MCHC 33.5 g/dL (Normal) Range: 32.0-36.0 MCV 94 fL (Normal) Range: 80-98 RDW 13.1 % (Normal) Range: 11.7-15.0 Hemoglobin 13.9 g/dL (Normal) Range: 11.5-15.0 RBC 4.41 {x10E6/uL} (Normal) Range: 3.80-5.10 WBC 6.3 {x10E3/uL} (Normal) Range: 4.0-10.5 86-Yrb-665003:23 Urinalysis, Office (68448) UA - BILIRUBIN Negative (Normal) UA - BLOOD Negative (Normal) UA - GLUCOSE Negative (Normal) UA - KETONES Negative mg/dL (Normal) UA - LEUKOCYTE ESTERASE Negative (Normal) UA - NITRITE Negative (Normal) UA - PH 7.0 (Normal) UA - PROTEIN Negative mg/dL (Normal) UA - SPECIFIC GRAVITY 1.010 (Normal) URINE UROBILINGN JOSÉ MIGUEL TIMED Normal mg/dL (Normal) 08-Stv-415397:48 Hepatic Function Panel (7) Comments: PERFORMED BY: [place] 9895070 [facility] [id number] Albumin, Serum 4.4 g/dL (Normal) Range: 3.5-4.8 Alkaline Phosphatase, S 57 [iU]/L (Normal) Range: 25-165 ALT (SGPT) 25 [iU]/L (Normal) Range: 0-40 AST (SGOT) 27 [iU]/L (Normal) Range: 0-40 Bilirubin, Direct 0.14 mg/dL (Normal) Range: 0.00-0.40 Bilirubin, Total 0.4 mg/dL (Normal) Range: 0.1-1.2 Protein, Total, Serum 6.4 g/dL (Normal) Range: 6.0-8.5 :29 Urinalysis, Office (83893) UA - BILIRUBIN Negative (Normal) UA - BLOOD Non Hemolyzed Trace (Normal) UA - GLUCOSE Negative (Normal) UA - KETONES Negative mg/dL (Normal) UA - LEUKOCYTE ESTERASE Negative (Normal) UA - NITRITE Negative (Normal) UA - PH 7.0 (Normal) UA - PROTEIN Negative mg/dL (Normal) UA - SPECIFIC GRAVITY 1.015 (Normal) URINE UROBILINGN JOSÉ MIGUEL TIMED Normal mg/dL (Normal) :13 URINE CELINE CULTURE-JOSÉ MIGUEL COL Comments: PATIENT NOT FASTINGClinical Information: SRC:UR ADD [id number] PERFORMED BY: [employer]CoAkonni BiosystemsUssocm3682 [facility] [id number] COUNT (58302) Result 1 NG36 (Normal) Comments: No growth in 36 - 48 hours. Urine Culture,Comprehensive Final report (Normal) :50 Metabolic Panel, Basic (86919) Comments: PATIENT NOT FASTINGClinical Information: ADD DRAW FEE [id number] ADD J [id number] PERFORMED BY: [facility] Cubybx8339 [facility] [id number] BUN 16 mg/dL (Normal) Range: 5-26 BUN/Creatinine Ratio 18 (Normal) Range: 8-27 Calcium, Serum 9.6 mg/dL (Normal) Range: 8.5-10.6 Carbon Dioxide, Total 27 mmol/L (Normal) Range: 20-32 Chloride, Serum 101 mmol/L (Normal) Range: 97-108 Creatinine, Serum 0.89 mg/dL (Normal) Range: 0.57-1.00 eGFR >59 mL/min/1.73 (Normal) eGFR AfricanAmerican >59 mL/min/1.73 Comments: Note: Persistent reduction for 3 months or more in an eGFR<60 mL/min/1.73 m2 defines CKD. Patients with eGFR values>/=60 mL/min/1.73 m2 may also have CKD if evidence of persistentproteinuria is (Normal) present. Additional information may be found [email or web address]. Glucose, Serum 91 mg/dL (Normal) Range: 65-99 Potassium, Serum 3.8 mmol/L (Normal) Range: 3.5-5.2 Sodium, Serum 138 mmol/L (Normal) Range: 135-145 :58 Urinalysis, Office (05391) UA - BILIRUBIN Negative (Normal) UA - BLOOD Hemolyzed Trace (Normal) UA - GLUCOSE Negative (Normal) UA - KETONES Negative mg/dL (Normal) UA - LEUKOCYTE ESTERASE Negative (Normal) UA - NITRITE Negative (Normal) UA - PH 7.0 (Normal) UA - PROTEIN Negative mg/dL (Normal) UA - SPECIFIC GRAVITY 1.010 (Normal) URINE UROBILINGN JOSÉ MIGUEL TIMED 2 mg/dL (Normal) 8-Sdp-287326:23 SHOULDER,MIN 2 VIEWS Radiology Report See Note (Normal) Comments: Exam Number: [id number] SHOULDER SERIES. HISTORYA 73-year-old woman with right shoulder pain. FINDINGSRight shoulder series. Cortical outlines are intact. Bones arenormally aligned, and joint spaces ar e well maintained. Soft tissuesare unremarkable. IMPRESSIONUnremarkable right shoulder series. Reported By: DAYNA RECINOS M.D. 07-Jan-20099:07 Hepatic Function Panel (7) Comments: PATIENT WAS FASTINGPERFORMED BY: [facility] [id number] Albumin, Serum 4.3 g/dL (Normal) Range: 3.5-4.8 Alkaline Phosphatase, S 63 [iU]/L (Normal) Range: 25-165 ALT (SGPT) 27 [iU]/L (Normal) Range: 0-40 AST (SGOT) 29 [iU]/L (Normal) Range: 0-40 Bilirubin, Direct 0.10 mg/dL (Normal) Range: 0.00-0.40 Bilirubin, Total 0.3 mg/dL (Normal) Range: 0.1-1.2 Protein, Total, Serum 7.0 g/dL (Normal) Range: 6.0-8.5 :38 TSH (70038) Comments: PATIENT NOT FASTINGClinical Information: ADD DRAW FEE [id number] ADD J 76804 PERFORMED BY: [employer]6370 [facility] [id number] TSH 1.604 {uIU/mL} (Normal) Range: 0.450-4.500 :25 Metabolic Panel, Comprehensive Comments: PATIENT WAS FASTINGClinical Information: ADD [id number], [id number] PERFORMED BY: [employer]6370 [facility] [id number] (15033) A/G Ratio 2.4 (Normal) Range: 1.1-2.5 Albumin, Serum 4.6 g/dL (Normal) Range: 3.5-4.8 Alkaline Phosphatase, S 53 [iU]/L (Normal) Range: 25-165 ALT (SGPT) 16 [iU]/L (Normal) Range: 0-40 AST (SGOT) 27 [iU]/L (Normal) Range: 0-40 Bilirubin, Total 0.9 mg/dL (Normal) Range: 0.1-1.2 BUN 14 mg/dL (Normal) Range: 5-26 BUN/Creatinine Ratio 17 (Normal) Range: 8-27 Calcium, Serum 9.7 mg/dL (Normal) Range: 8.5-10.6 Carbon Dioxide, Total 27 mmol/L (Normal) Range: 20-32 Chloride, Serum 101 mmol/L (Normal) Range: 97-108 Creatinine, Serum 0.83 mg/dL (Normal) Range: 0.57-1.00 eGFR >59 mL/min/1.73 (Normal) eGFR AfricanAmerican >59 mL/min/1.73 Comments: Note: Persistent reduction for 3 months or more in an eGFR<60 mL/min/1.73 m2 defines CKD. Patients with eGFR values>/=60 mL/min/1.73 m2 may also have CKD if evidence of persistentproteinuria is (Normal) present. Additional information may be found [email or web address]. Globulin, Total 1.9 g/dL (Normal) Range: 1.5-4.5 Glucose, Serum 87 mg/dL (Normal) Range: 65-99 Potassium, Serum 4.4 mmol/L (Normal) Range: 3.5-5.2 Protein, Total, Serum 6.5 g/dL (Normal) Range: 6.0-8.5 Sodium, Serum 141 mmol/L (Normal) Range: 135-145 :25 Lipid Panel (49535) Comments: in six months (approximately); PATIENT WAS FASTINGPERFORMED BY: [facility]CoHam[facility] CenterVozjyx4781 [facility] [id number] Cholesterol, Total 256 mg/dL (Abnormal) Range: 100-199 HDL Cholesterol 73 mg/dL (Normal) Comments: According to ATP-III Guidelines, HDL-C >59 mg/dL is considered anegative risk factor for CHD. LDL Cholesterol Calc 156 mg/dL (Abnormal) Range: 0-99 LDL/HDL Ratio 2.1 {ratio_units} (Normal) Range: 0.0-3.2 Triglycerides 133 mg/dL (Normal) Range: 0-149 VLDL Cholesterol Thanh 27 mg/dL (Normal) Range: 5-40 :20 Urinalysis, Office (66649) UA - BILIRUBIN Negative (Normal) UA - BLOOD Negative (Normal) UA - GLUCOSE Negative (Normal) UA - KETONES Negative mg/dL (Normal) UA - LEUKOCYTE ESTERASE Negative (Normal) UA - NITRITE Negative (Normal) UA - PH 7.0 (Normal) UA - PROTEIN Negative mg/dL (Normal) UA - SPECIFIC GRAVITY 1.015 (Normal) URINE UROBILINGN JOSÉ MIGUEL TIMED Normal mg/dL (Normal) :40 CBCD BASO% 0.6 % (Normal) Range: 0-1 EO% 5.9 % (Abnormal) Range: 0-5 HCT 41.2 % (Normal) Range: 37-47 HGB 13.9 g/dL (Normal) Range: 12.0-16.0 LY% 36.1 % (Normal) Range: 19-41 MCH 31.1 pg (Normal) Range: 27.0-32.0 MCHC 33.8 g/dL (Normal) Range: 32-36 MCV 92.0 fL (Normal) Range: 81-99 MONO% 9.9 % (Normal) Range: 0-10 MPV 8.6 fL (Normal) Range: 6.5-12.0 NEUT% 47.5 % (Normal) Range: 47-70 PLT 369 K/mm3 (Normal) Range: 150-450 RBC 4.48 {M/mm3} (Normal) Range: 4.2-5.4 RDW 12.5 % (Normal) Range: 11.6-14.6 WBC 5.3 K/mm3 (Normal) Range: 4.4-11.0 :40 COMP METABOLIC A/G 1.4 {RATIO} (Normal) Range: 0.9-2.4 ALB 4.2 g/dL (Normal) Range: 3.4-5.0 ALK P 61 U/L (Normal) Range: 50-136 ALT 37 U/L (Normal) Range: 30-65 AST 27 U/L (Normal) Range: 15-37 BUN 12 mg/dL (Normal) Range: 7-18 BUN/CRE 13.3 {RATIO} (Normal) Range: 10-20 CA 9.3 mg/dL (Normal) Range: 8.5-10.1 CL 102 mmol/L (Normal) Range: 98-107 CO2 29.8 mmol/L (Normal) Range: 21.0-32.0 CREAT,SERUM 0.9 mg/dL (Normal) Range: 0.6-1.0 GAP 10 (Normal) Range: 5-15 GLOB 3.1 g/dL (Normal) Range: 2.7-4.2 GLU 90 mg/dL (Normal) Range: 70-110 K 3.8 mmol/L (Normal) Range: 3.5-5.1 NA 142 mmol/L (Normal) Range: 136-145 T BILI 0.63 mg/dL (Normal) Range: 0.00-1.00 T PROT 7.3 g/dL (Normal) Range: 6.4-8.2 :40 LIPID CHOL 274 mg/dL (Abnormal) Comments: <200 mg/dL Desirable 200-240 mg/dL Borderline >240 mg/dL High Risk HDL 75 mg/dL (Normal) Comments: Reference Range HDL <40 mg/dL Low HDL Cholesterol HDL >or= 60 mg/dL High HDL Cholesterol LDL 177 mg/dL (Abnormal) Range: 0-130 TRIG 112 mg/dL (Normal) Comments: Serum Triglycerides Reference Interval Normal <150 mg/dL Borderline high 150 - 199 mg/dL High 200 - 499 mg/dL Very High > or = 500 mg/dL VLDL 22 mg/dL (Normal) Range: 5-40 01-Dec-20088:40 ROUTINE UA BILIRUBIN URINE SeeNote (Normal) Comments: Result: NEGATIVE CLARITY CLEAR (Normal) COLOR YELLOW (Normal) GLUCOSE, UR SeeNote (Normal) Comments: Result: NEGATIVE KETONE UR SeeNote mg/dL (Normal) Comments: Result: NEGATIVE LEUK ESTERASE SeeNote (Normal) Comments: Result: NEGATIVE NITRITE UR SeeNote (Normal) Comments: Result: NEGATIVE OCCULT BLOOD-UR SeeNote (Normal) Comments: Result: NEGATIVE pH UR 7.0 (Normal) Range: 5.0-8.0 PROT DIPSTX SeeNote (Normal) Comments: Result: NEGATIVE SP.GR. DIPSTX <=1.005 (Normal) Range: 1.002-1.030 UROBILI 0.2 EU/dl (Normal) Range: 0.2 - 1.0 09-Jun-20086:05 MYOCARD PERF SPECT REST/STRESS Radiology Report See Note (Normal) Comments: Exam Number: [id number] MYOCARDIAL PERFUSION SCAN 11.7 millicuries of Tc99m sestamibi was injected at rest. The patientthen exercised according to the regular James protocol for a totaldurat ion of 7 min utes and 31 seconds, attaining 100% of the maximumpredicted heart rate for a maximum work load of 9.3 METs. At peakexercise, 30 millicuries of Tc99m sestamibi was injected. Stressimages were then obtain ed. Stress and rest images were reconstructedand compared in the short axis, vertical long and horizontal longaxes. Gated images were also obtained. Review of the stress images demonstrate a normal ca rdiac silhouettesize. There is uptake of tracer noted in all areas of the myocardium.The resting images similarly demonstrate uniform uptake of tracer inall areas of the myocardium. The gated ejection fraction is 75% CONCLUSION1. Exercise myocardial perfusion scan with no evidence of ischemia carina moderate work load.2. Preserved ejection fraction. Reported By: JOSE AGUILERA M.D. :55 Urinalysis, Office (51001) UA - BILIRUBIN Negative (Normal) UA - BLOOD Hemolyzed Trace (Normal) UA - GLUCOSE Negative (Normal) UA - KETONES Negative mg/dL (Normal) UA - LEUKOCYTE ESTERASE Negative (Normal) UA - NITRITE Positive (Normal) UA - PH 6.0 (Normal) UA - PROTEIN Negative mg/dL (Normal) UA - SPECIFIC GRAVITY 1.015 (Normal) URINE UROBILINGN JOSÉ MIGUEL TIMED 2 mg/dL (Normal) :47 CBCD,SMEAR DIFF BAND 3 % (Normal) Range: 0-5 CELLS COUNTED 100 (Normal) EOS 4 % (Normal) Range: 0-5 HCT 38.3 % (Normal) Range: 37-47 HGB 12.9 g/dL (Normal) Range: 12.0-16.0 LYMPH 44 % (Abnormal) Range: 19-41 MCH 30.8 pg (Normal) Range: 27.0-32.0 MCHC 33.9 g/dL (Normal) Range: 32-36 MCV 90.9 fL (Normal) Range: 81-99 MONOCYTE 18 % (Abnormal) Range: 0-10 PLT 398 K/mm3 (Normal) Range: 150-450 PLT EST SeeNote (Normal) Comments: Result: ADEQUATE RBC 4.21 {M/mm3} (Normal) Range: 4.2-5.4 RDW 12.3 % (Normal) Range: 11.6-14.6 RED CELL MORPH SeeNote {NORMAL} (Normal) Comments: Result: NORM C+C SEGS 31 % (Abnormal) Range: 47-70 WBC 6.4 K/mm3 (Normal) Range: 4.4-11.0 :47 COMP METABOLIC CL 102 mmol/L (Normal) Range: 98-107 CO2 29.3 mmol/L (Normal) Range: 21.0-32.0 GAP 10 (Normal) Range: 5-15 A/G 1.3 {RATIO} (Normal) Range: 0.9-2.4 ALB 3.9 g/dL (Normal) Range: 3.4-5.0 ALK P 55 U/L (Normal) Range: 50-136 ALT 37 U/L (Normal) Range: 30-65 AST 25 U/L (Normal) Range: 15-37 BUN 13 mg/dL (Normal) Range: 7-18 BUN/CRE 13.0 {RATIO} (Normal) Range: 10-20 CA 8.9 mg/dL (Normal) Range: 8.5-10.1 CREAT,SERUM 1.0 mg/dL (Normal) Range: 0.6-1.0 GLOB 3.0 g/dL (Normal) Range: 2.7-4.2 GLU 86 mg/dL (Normal) Range: 70-110 K 3.8 mmol/L (Normal) Range: 3.5-5.1 NA 141 mmol/L (Normal) Range: 136-145 T BILI 0.73 mg/dL (Normal) Range: 0.00-1.00 T PROT 6.9 g/dL (Normal) Range: 6.4-8.2 :47 LIPID CHOL 219 mg/dL (Abnormal) Comments: <200 mg/dL Desirable 200-240 mg/dL Borderline >240 mg/dL High Risk HDL 66 mg/dL (Normal) Comments: Reference Range HDL <40 mg/dL Low HDL Cholesterol HDL >or= 60 mg/dL High HDL Cholesterol LDL 134 mg/dL (Abnormal) Range: 0-130 TRIG 97 mg/dL (Normal) Comments: Serum Triglycerides Reference Interval Normal <150 mg/dL Borderline high 150 - 199 mg/dL High 200 - 499 mg/dL Very High > or = 500 mg/dL VLDL 19 mg/dL (Normal) Range: 5-40 :47 ROUTINE UA BILIRUBIN URINE SeeNote (Normal) Comments: Result: NEGATIVE CLARITY SeeNote (Normal) Comments: Result: SL CLOUDY COLOR YELLOW (Normal) GLUCOSE, UR SeeNote (Normal) Comments: Result: NEGATIVE KETONE UR SeeNote mg/dL (Normal) Comments: Result: NEGATIVE LEUK ESTERASE SeeNote (Normal) Comments: Result: NEGATIVE NITRITE UR SeeNote (Normal) Comments: Result: NEGATIVE OCCULT BLOOD-UR SeeNote (Normal) Comments: Result: NEGATIVE pH UR 8.5 (Normal) Range: 5.0-8.0 PROT DIPSTX SeeNote (Normal) Comments: Result: NEGATIVE SP.GR. DIPSTX 1.010 (Normal) Range: 1.002-1.030 UROBILI 0.2 EU/dl (Normal) Range: 0.2 - 1.0 26-Yor-092496:20 EB ANTIBODY EARLY ANTIGN Comments: PATIENT NOT FASTINGPERFORMED BY: [facility] [id number] ([id number]) EBV Ab VCA, IgG 1276 AU/mL (Abnormal) Range: 0-99 Comments: Negative <100 Equivocal 100 - 120 Positive >120 EBV Ab VCA, IgM 20 AU/mL (Normal) Range: 0-99 Comments: Negative <100 Equivocal 100 - 120 Positive >120 EBV Early Antigen Ab, IgG 58 AU/mL (Normal) Range: 0-99 Comments: Negative <100 Equivocal 100 - 120 Positive >120 EBV Nuclear Antigen Ab, IgG 659 AU/mL (Abnormal) Range: 0-99 Comments: Negative <100 Equivocal 100 - 120 Positive >120 Interpretation: SPRCS (Normal) Comments: EBV Interpretation Chart: VCA-IgM EA-IgG VCA-IgG NA-ABS Susceptible - - - - Acute Infection + + or- + - Convalescent Phase +or- +or- + + Chronic or Reactivated - + + +or- Old Infe ction - - +or- + + Antibody Present - Antibody Absent 04-Bgs-37975:36 Upper Respiratory Culture Comments: Clinical Information: SRC:TH PERFORMED BY: [id number] [id number] Result 1 RRF (Normal) Comments: Routine respiratory graeme Upper Respiratory Culture Final report (Normal) :48 Rapid Strep Test, Office ([id number]) Comments: neg Rapid Strep Test, Office Negative (Normal) :20 CBC HCT 39.5 % (Normal) Range: 37-47 HGB 13.5 g/dL (Normal) Range: 12.0-16.0 MCH 30.9 pg (Normal) Range: 27.0-32.0 MCHC 34.3 g/dL (Normal) Range: 32-36 MCV 90.2 fL (Normal) Range: 81-99 MPV 8.3 fL (Normal) Range: 6.5-12.0 PLT 382 K/mm3 (Normal) Range: 150-450 RBC 4.38 {M/mm3} (Normal) Range: 4.2-5.4 RDW 12.0 % (Normal) Range: 11.6-14.6 WBC 4.9 K/mm3 (Normal) Range: 4.4-11.0 :20 COMP METABOLIC A/G 1.4 {RATIO} (Normal) Range: 0.9-2.4 ALB 4.1 g/dL (Normal) Range: 3.4-5.0 ALK P 59 U/L (Normal) Range: 50-136 ALT 34 [iU]/L (Normal) Range: 30-65 AST 25 U/L (Normal) Range: 15-37 BUN 12 mg/dL (Normal) Range: 7-18 BUN/CRE 13.3 {RATIO} (Normal) Range: 10-20 CA 8.9 mg/dL (Normal) Range: 8.5-10.1 CL 103 mmol/L (Normal) Range: 98-107 CO2 29.6 mmol/L (Normal) Range: 21.0-32.0 Comments: Please Note Reference Interval Change CREAT,SERUM 0.9 mg/dL (Normal) Range: 0.6-1.0 GAP 9 (Normal) Range: 5-15 GLOB 2.9 g/dL (Normal) Range: 2.7-4.2 Comments: Please Note Reference Interval Change GLU 82 mg/dL (Normal) Range: 70-110 K 4.0 mmol/L (Normal) Range: 3.5-5.1 NA 142 mmol/L (Normal) Range: 136-145 T BILI 0.65 mg/dL (Normal) Range: 0.00-1.00 T PROT 7.0 g/dL (Normal) Range: 6.4-8.2 :20 LIPID CHOL 238 mg/dL (Abnormal) Comments: <200 mg/dL Desirable 200-240 mg/dL Borderline >240 mg/dL High Risk HDL 75 mg/dL (Normal) Comments: Reference Range HDL <40 mg/dL Low HDL Cholesterol HDL >or= 60 mg/dL High HDL Cholesterol LDL 150 mg/dL (Abnormal) Range: 0-130 TRIG 64 mg/dL (Normal) Comments: Serum Triglycerides Reference Interval Normal <150 mg/dL Borderline high 150 - 199 mg/dL High 200 - 499 mg/dL Very High > or = 500 mg/dL VLDL 13 mg/dL (Normal) Range: 5-40 05-Mem-496423:41 URINE CELINE CULTURE-JOSÉ MIGUEL COL Comments: PATIENT NOT FASTINGClinical Information: SRC:UR PERFORMED BY: [id number] [id number] COUNT ([id number]) Result 1 NG36 (Normal) Comments: No growth in 36 - 48 hours. Urine Culture,Comprehensive Final report (Normal) 13-Wkg-891398:30 Urinalysis, Office (53960) UA - LEUKOCYTE ESTERASE Trace (Normal) UA - NITRITE Negative (Normal) UA - PH 7.5 (Normal) UA - PROTEIN Negative mg/dL (Normal) URINE UROBILINGN JOSÉ MIGUEL TIMED 2 mg/dL (Normal) UA - BILIRUBIN Negative (Normal) UA - BLOOD Negative (Normal) UA - GLUCOSE Negative (Normal) UA - KETONES Negative mg/dL (Normal) UA - SPECIFIC GRAVITY 1.010 (Normal) 12-Kgj-415643:09 URINE CELINE CULTURE (JOSÉ MIGUEL COL Comments: PATIENT NOT FASTINGClinical Information: SRC:UR ADD [id number] PERFORMED BY: [employer] [id number] COUNT) ([id number]) Antimicrobial MIHEAD (Normal) Comments: S = Susceptible; I = Intermediate; R = Resistant P = Positive; N = Negative MICS are expressed in micrograms per mL Antibiotic RSLT#1 RSLT#2 Susceptibility RSLT#3 RSLT#4Amoxicillin/Clavulanic Acid SAmpicillin SCefepime SCeftriaxone SCefuroxime SCephalothin SCiprofloxacin SESBL NGentamicin SImipenem SLevofloxacin SNitrofurantoin S Piperacillin/Tazobactam STetracycline STobramycin STrimethoprim/Sulfa S Result 1 Escherichia coli Comments: 25,000-50,000 colony forming units per mL (Normal) Urine Final report Culture,Comprehensive (Normal) 51-Ode-450716:56 Urinalysis, Office ([id number]) UA - BILIRUBIN Negative (Normal) UA - BLOOD Non Hemolyzed Trace (Normal) UA - GLUCOSE Small (Normal) UA - KETONES Small mg/dL (Normal) UA - LEUKOCYTE ESTERASE Small (Normal) UA - NITRITE Positive (Normal) UA - PH 6.0 (Normal) UA - PROTEIN 300 mg/dL (Normal) UA - SPECIFIC GRAVITY 1.020 (Normal) URINE UROBILINGN JOSÉ MIGUEL TIMED 2 mg/dL (Normal) :12 L/S SPINE,MIN 4 VIEWS Radiology Report See Note (Normal) Comments: Exam Number: [id number] LUMBAR SPINE, FIVE VIEWS. INDICATIONLow back pain. COMPARISONNone. REPORTAP, lateral, and bilateral oblique views of the lumbar spine wereobtained, to include a lateral coned-down view of the lumbosacraljunction. There are 6 nonrib bearing lumbar-type vertebral bodies present withthe transitional segment present at the lumbosacral junction, whichwill be designated L6 for the pu rposes of this dictation. There is disc space narrowing with end plate spur formation at L4-5,L5-6, and L6-S1. On the lateral images, there appears to be a lucencythrough the pars interarticularis of the transitional segment,suggesting pars defects. These are difficult to confirm on theoblique images. The remaining posterior elements otherwise appeargrossly intact. Note is made of surgical clips in the right upperquadrant of the abdomen, likely from prior cholecystectomy. There aresmall opacities seen within the pelvis, likely phleboliths. IMPRESSION1. 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 There are questionable bilateral pars defects at the transitional segment, difficult to determine with certain ty on the oblique images. Correlation with CT or bone spect nuclear imaging is, therefore, recommended. There is no spondylolisthesis.3. No acute abnormalities are seen. Reported By: EDSON ROCK M.D. :39 COMP METABOLIC A/G 1.4 {RATIO} (Normal) Range: 0.9-2.4 ALB 4.1 g/dL (Normal) Range: 3.4-5.0 ALK P 66 U/L (Normal) Range: 50-136 ALT 32 [iU]/L (Normal) Range: 30-65 AST 21 U/L (Normal) Range: 15-37 BUN 10 mg/dL (Normal) Range: 7-18 BUN/CRE 11.1 {RATIO} (Normal) Range: 10-20 CA 9.1 mg/dL (Normal) Range: 8.5-10.1 CL 101 mmol/L (Normal) Range: 98-107 CO2 32.4 mmol/L (Abnormal) Range: 22.0-29.0 CREAT,SERUM 0.9 mg/dL (Normal) Range: 0.6-1.0 GAP 6 (Normal) Range: 5-15 GLOB 2.9 g/dL (Normal) Range: 2.3-3.5 GLU 90 mg/dL (Normal) Range: 70-110 K 3.6 mmol/L (Normal) Range: 3.5-5.1 NA 139 mmol/L (Normal) Range: 136-145 T BILI 0.57 mg/dL (Normal) Range: 0.00-1.00 T PROT 7.0 g/dL (Normal) Range: 6.4-8.2 :39 LIPID CHOL 245 mg/dL (Abnormal) Comments: <200 mg/dL Desirable 200-240 mg/dL Borderline >240 mg/dL High Risk HDL 62 mg/dL (Normal) Comments: Reference Range HDL <40 mg/dL Low HDL Cholesterol HDL >or= 60 mg/dL High HDL Cholesterol LDL 157 mg/dL (Abnormal) Range: 0-130 TRIG 128 mg/dL (Normal) Comments: Serum Triglycerides Reference Interval Normal <150 mg/dL Borderline high 150 - 199 mg/dL High 200 - 499 mg/dL Very High > or = 500 mg/dL VLDL 26 mg/dL (Normal) Range: 5-40 :37 COMP METABOLIC A/G 1.4 {RATIO} (Normal) Range: 0.9-2.4 ALB 3.9 g/dL (Normal) Range: 3.4-5.0 ALK P 62 U/L (Normal) Range: 50-136 ALT 37 [iU]/L (Normal) Range: 30-65 AST 20 U/L (Normal) Range: 15-37 BUN 13 mg/dL (Normal) Range: 7-18 BUN/CRE 14.4 {RATIO} (Normal) Range: 10-20 CA 9.1 mg/dL (Normal) Range: 8.5-10.1 CL 101 mmol/L (Normal) Range: 98-107 CO2 30.2 mmol/L (Abnormal) Range: 22.0-29.0 CREAT,SERUM 0.9 mg/dL (Normal) Range: 0.6-1.0 GAP 7 (Normal) Range: 5-15 GLOB 2.7 g/dL (Normal) Range: 2.3-3.5 GLU 88 mg/dL (Normal) Range: 70-110 K 3.7 mmol/L (Normal) Range: 3.5-5.1 NA 138 mmol/L (Normal) Range: 136-145 T BILI 0.71 mg/dL (Normal) Range: 0.00-1.00 T PROT 6.6 g/dL (Normal) Range: 6.4-8.2 :37 LIPID CHOL 257 mg/dL (Abnormal) Comments: <200 mg/dL Desirable 200-240 mg/dL Borderline >240 mg/dL High Risk HDL 65 mg/dL (Normal) Comments: Reference Range HDL <40 mg/dL Low HDL Cholesterol HDL >or= 60 mg/dL High HDL Cholesterol LDL 172 mg/dL (Abnormal) Range: 0-130 TRIG 102 mg/dL (Normal) Comments: Serum Triglycerides Reference Interval Normal <150 mg/dL Borderline high 150 - 199 mg/dL High 200 - 499 mg/dL Very High > or = 500 mg/dL VLDL 20 mg/dL (Normal) Range: 5-40 Plan of Care Name Dates Details Instructions Hypertension : HTN/CAD Red Flags Indication: Hypertension Encounter for Medicare annual wellness exam : Follow up as needed Indication: Encounter for Medicare annual wellness exam BMI 27.0-27.9,adult : Eprescribed prescriptions (G8553) Indication: BMI 27.0-27.9,adult Encounter for Medicare annual wellness exam : fall reduction handout Indication: Encounter for Medicare annual wellness exam Encounter for Medicare annual wellness exam : elderly packet given Indication: Encounter for Medicare annual wellness exam Encounter for Medicare annual wellness exam : advance planning information Indication: Encounter for Medicare annual wellness exam Nonsmoker : Eprescribed prescriptions (G8553) Indication: Nonsmoker Need for zoster vaccination : Follow up in 3 months Indication: Need for zoster vaccination Nonsmoker : Eprescribed prescriptions (G8553) Indication: Nonsmoker Hypertension : Follow up in 3 weeks Indication: Hypertension Nonsmoker : Eprescribed prescriptions (G8553) Indication: Nonsmoker IBS (irritable bowel syndrome) : Reviewed Lab Indication: IBS (irritable bowel syndrome) Osteoarthritis : Reviewed Diagnostic Tests Indication: Osteoarthritis Anxiety : Reviewed Diagnostic Tests Indication: Anxiety Anxiety : Reviewed Lab Indication: Anxiety Hypertension : Reviewed Lab Indication: Hypertension Hypercholesterolemia : Reviewed Lab Indication: Hypercholesterolemia Nonsmoker : Eprescribed prescriptions (G8553) Indication: Nonsmoker Cough : Follow up if no improvement or if symptoms worsen Indication: Cough Sinusitis : Sinusitis *: sinus infection Indication: Sinusitis Nonsmoker : Eprescribed prescriptions (G8553) Indication: Nonsmoker Asthma, intrinsic, mild intermittent, with status asthmaticus : Follow up in 3 months Indication: Asthma, intrinsic, mild intermittent, with status asthmaticus BMI 28.0-28.9,adult : Eprescribed prescriptions (G8553) Indication: BMI 28.0-28.9,adult BMI 28.0-28.9,adult : Follow up if no improvement or if symptoms worsen Indication: BMI 28.0-28.9,adult Knee pain, right : Eprescribed prescriptions (G8553) Indication: Knee pain, right Hypertension : Eprescribed prescriptions (G8553) Indication: Hypertension Nonsmoker : Follow up in 2-3 weeks Indication: Nonsmoker Knee pain, right : Reviewed Lab Indication: Knee pain, right Knee pain, right : Reviewed Pocket Creaser Letter Indication: Knee pain, right Knee pain, right : Reviewed Diagnostic Tests Indication: Knee pain, right BMI 28.0-28.9,adult : Eprescribed prescriptions (G8553) Indication: BMI 28.0-28.9,adult Hypertension : Follow up in 3 months Indication: Hypertension Current nonsmoker (Renamed from Current non-smoker) : Eprescribed prescriptions (G8553) Indication: Current nonsmoker (Renamed from Current non-smoker) Right flank pain : Follow up in 3 months Indication: Right flank pain Hypertension : Eprescribed prescriptions (G8553) Indication: Hypertension Abdominal bloating : Follow up if no improvement or if symptoms worsen Indication: Abdominal bloating UTI symptoms : Eprescribed prescriptions (G8553) Indication: UTI symptoms Epigastric discomfort : Follow up in 3 months gen med Indication: Epigastric discomfort Hypercholesterolemia : Eprescribed prescriptions (G8553) Indication: Hypercholesterolemia Osteoporosis : Follow up in 4 [facility] Indication: Osteoporosis Osteoporosis : Reviewed Diagnostic Tests Indication: Osteoporosis Anxiety : Reviewed Lab Indication: Anxiety Hypertension : Reviewed Lab Indication: Hypertension Stress incontinence, female : Eprescribed prescriptions (G8553) Indication: Stress incontinence, female Pain, joint, shoulder region, right : Shoulder Injection Indication: Pain, joint, shoulder region, right Osteoarthritis : Eprescribed prescriptions (G8553) Indication: Osteoarthritis Asthma, intrinsic, mild intermittent, with status asthmaticus : Eprescribed prescriptions (G8553) Indication: Asthma, intrinsic, mild intermittent, with status asthmaticus Fever and chills : Eprescribed prescriptions (G8553) Indication: Fever and chills Hypercholesterolemia : Eprescribed prescriptions (G8553) Indication: Hypercholesterolemia Joint inflammation : Shoulder Injection Indication: Joint inflammation NEED FOR PROPHYLACTIC VACCINATION AND INOCULATION AGAINST INFLUENZA (V04.81) (Renamed from NEED FOR PROPHYLACTIC VACCINATION AND INOCULATION AGAINST INFLUENZA) : Flu (Influenza) *: flu shot Indication: NEED FOR PROPHYLACTIC VACCINATION AND INOCULATION AGAINST INFLUENZA (V04.81) (Renamed from NEED FOR PROPHYLACTIC VACCINATION AND INOCULATION AGAINST INFLUENZA) Joint inflammation : Shoulder Bursitis *: bursitis Indication: Joint inflammation Hypertension : Follow up in 4 months Indication: Hypertension Hypertension : High Blood Pressure (Essential Hypertension) *: cardiovascular health Indication: Hypertension Wheezing symptom : Follow up - Make appt after diagnostic tests Indication: Wheezing symptom Diarrhea : Follow up in 1 week Indication: Diarrhea Wheezing symptom : Follow up if no improvement or if symptoms worsen Indication: Wheezing symptom Wheezing symptom : Follow up if no improvement or if symptoms worsen Indication: Wheezing symptom Diarrhea : Follow up in2 days Indication: Diarrhea Bronchitis : *URI Treatment Indication: Bronchitis Bronchitis : *URI Symptoms Indication: Bronchitis Pharyngitis, acute : *Antibiotic Usage Education - Female Indication: Pharyngitis, acute Pain, joint, shoulder region, right : Shoulder Injection Indication: Pain, joint, shoulder region, right Pain, joint, shoulder region, right : Shoulder Injection Indication: Pain, joint, shoulder region, right Acute sinusitis, unspecified : FOLLOW UP IN 3 WEEKS Indication: Acute sinusitis, unspecified Acute sinusitis, unspecified : *URI Treatment Indication: Acute sinusitis, unspecified Acute sinusitis, unspecified : Antibiotic Usage Education - Female Indication: Acute sinusitis, unspecified Acute sinusitis, unspecified : URI Symptoms Indication: Acute sinusitis, unspecified Dysuria : UTI treatment Indication: Dysuria Dysuria : Antibiotic Usage Education - Female Indication: Dysuria Hypercholesterolemia : FOLLOW UP IN 6 MONTHS Indication: Hypercholesterolemia Low back pain : FOLLOW UP IN 4 WEEKS Indication: Low back pain Low back pain : exercises Indication: Low back pain Low back pain : FOLLOW UP IF NO IMPROVEMENT OR IF SYMPTOMS WORSEN Indication: Low back pain Low back pain : Low Back Pain Red Flags Indication: Low back pain Planned Observations URINALYSIS, W/ MICRO ([id number])Indication: Hypertension On: 56-Whm-337338:14 Request URINE CELINE CULTURE-IDENTIFICATN (33679)Indication: Right flank pain On: 0-Fxi-188404:15 Request CALCIFIDIOL (06181) VIT D 25Indication: Osteoporosis On: 70-Gzb-990525:51 Request MICROALBUMIN: CREATININE RATIO (73754) AND (83720)Indication: Hypertension On: :51 Request METABOLIC PANEL, COMPREHENSIVE (01390)Indication: Hypertension On: 44-Reo-567086:51 Request LIPID PANEL (44328)Indication: Hypertension On: :51 Request CBC W/AUTO DIFF WBC (55834)Indication: Hypertension On: :51 Request URINALYSIS, W/ MICRO (26956)Indication: Hypertension On: 05-Ylv-696423:10 Request METABOLIC PANEL, COMPREHENSIVE (86176)Indication: Hypertension On: 08-Xap-388304:10 Request LIPID PANEL (52598)Indication: Hypertension On: 96-Tvs-431467:10 Request CBC WITH MANUAL DIFF (82958)Indication: Hypertension On: 09-Bgt-661758:10 Request CBC, PLATELETS & MANUAL DIFF (27296)Indication: Hypertension On: 9-Dmb-887847:12 Request MICROALBUMIN: CREATININE RATIO (98546) AND (35840)Indication: Hypertension On: 05-Msq-509457:43 Request METABOLIC PANEL, COMPREHENSIVE (89923)Indication: Hypertension On: 80-Jif-345867:43 Request LIPID PANEL (11732)Indication: Hypertension On: 65-Gix-973880:43 Request CBC WITH MANUAL DIFF (22523)Indication: Hypertension On: 03-Sxi-980389:43 Request CREATININE CLEARANCE (12736)Indication: Proteinuria On: 63-Fol-536124:12 Request Comments: now 24 hour urine for Protein (24471)Indication: Proteinuria On: 66-Gbk-717311:12 Request Collagen Crosslinked N-Telopeptide (60481)Indication: Osteoporosis On: 58-Yhu-17324:59 Request Comments: 24 hour urine check now and in six months (approximately) HEPATIC FUNCTION PANEL (66216)Indication: oncomycosis On: :03 Request Comments: monthly x 3 EB ANTIBODY VIRAL CAPSID (13848) [id number]: Pharyngitis, acute On: :13 Request EB ANTIBODY NUCLR ANTIGN (08911)Indication: Pharyngitis, acute On: 02-Aez-455204:13 Request CELINE CULTURE-OTHER (60598)Indication: Pharyngitis, acute On: :48 Request URINALYSIS W/O MICRO (36736)Indication: Hypertension On: :16 Request METABOLIC PANEL, COMPREHENSIVE (02543)Indication: Hypertension On: :16 Request CBC WITH MANUAL DIFF (40561)Indication: Hypertension On: :16 Request Comments: in six months (approximately) LIPID PANEL (02846)Indication: Hypertension On: :16 Request CBC (Auto) ([id number])Indication: Hypercholesterolemia On: :24 Request Metabolic Panel, Comprehensive (14189)Indication: Hypercholesterolemia On: :24 Request Lipid Panel ([id number])Indication: Hypercholesterolemia On: :24 Request Comments: in six months (approximately) Metabolic Panel, Comprehensive (14896)Indication: Hypercholesterolemia On: 48-Fwy-203719:09 Request Lipid Panel (79704)Indication: Hypercholesterolemia On: 05-Odn-667584:09 Request Comments: 4m Planned Encounters Medical; 3 Month FU - On: 08-Oct-2018 13:45 [facility] Nguyen Santana CNP, CNP, Mary E Planned Procedures ELECTROCARDIOGRAM, COMPLETE (ECG) On: 30-Jul-2018 Intent (72513)By: Zoraida Stewart Comments: Sinus Rhythm-HR 86-occasional ectopic ventricular beat-No new changes from last EKG. SCREENING DIGITAL TOMOSYNTHESIS OF On: 11-Jun-2018 Intent BREAST (19305)By: Nguyen Santana CNP, CNP, Mary E DEXA SCAN AXIAL SKELETON (69182)By: On: 11-Jun-2018 Intent Nguyen Santana CNP, CNP, Mary E Flu Vaccine (Quadrivalent) 34284Gj: On: 11-Jun-2018 Intent Nguyen Santana CNP, CNP, Mary E Aerosol Treatment (26309)By: Terry On: 09-Nov-2017 Intent Zoraida Comments: Better air exchange after aerosol treatment. Holter Monitor 24 hrsBy: Max GIVENS, On: 15-Sep-2017 Intent Nguyen Skinner CNP Spirometry (90427)By: Max GIVENS, On: 15-Sep-2017 Intent Nguyen Skinner CNP Comments: mod severe restriction ELECTROCARDIOGRAM, COMPLETE (ECG) On: 15-Sep-2017 Intent (83432)By: Nguyen Santana CNP Comments: sinus bradycardia Nguyen GIVENS MAGNETIC RESONANCE IMAGING OF RIGHT On: 05-Jul-2017 Intent KNEE WITHOUT CONTRAST ([id number])By: Nguyen Santana CNP, CNP, Mary E Flu Vaccine (Quadrivalent) [id number]: On: 14-Jun-2017 Intent Nguyen Santana CNP, CNP, Mary E Comments: Lot:[id number]:03/19/18Dose:0.5mLRoute:IMSite:L DltdGiven By:asVIS signed Ultrasound - LiverBy: Nguyen Santana CNP On: 08-Mar-2017 Intent Nguyen Mata CNP Comments: REpeat in Jun 2017 CT - Abdomen & Pelvis Stone On: 30-Nov-2016 Intent ProtocolBy: Nguyen Santana CNP, CNP, Mary E Flu Vaccine (Quadrivalent) [id number]: On: 23-Aug-2016 Intent Jo Gaitan LPN Flu Vaccine (Quadrivalent) [id number]: On: 15-Sep-2015 Intent George Bueno MD Comments: lot [id number]: 03/31/2016site/route L jean, IMamt 0.5mlVIS and ABN signed when applicableChelsea, CAR FERRY MASTER Kenalog Injection, 10 mgm ([id number])By: On: 20-Mar-2015 Intent George Bueno MD Comments: x4 TDAP VACCINE >7 IM ([id number])By: Ximena On: 17-Mar-2015 Intent George ALEXANDRE MRI - Shoulder(s) - RightBy: Ximena On: 17-Mar-2015 Intent George ALEXANDRE ADMINISTRATION OF INFLUENZA VIRUS On: 16-Sep-2014 Intent VACCINE ([id number])By: George Bueno MD Flu Vaccine (Quadrivalent) [id number]: On: 16-Sep-2014 Intent George Bueno MD ELECTROCARDIOGRAM, COMPLETE (ECG) On: 16-Sep-2014 Intent ([id number])By: George Bueno MD Comments: routine for baseline see scanned document of test done to see results reviewed today with patient Aerosol Treatment ([id number])By: Max On: 01-Sep-2014 Intent CHON Mary Max [employer] FOUNDER AND CHIEF STRATEGY OFFICER, Nguyen Briones Eprescribed prescriptions ([id number])By: On: 25-Feb-2014 Intent George Bueno MD Kenalog Injection, 10 mgm ([id number])By: On: 14-Jan-2014 Intent George Bueno MD Kenalog Injection, 10 mgm (J3301)By: On: 14-Jan-2014 Intent George Bueno MD Kenalog Injection, 10 mgm ([id number])By: On: 14-Jan-2014 Intent George Bueno MD Kenalog Injection, 10 mgm ([id number])By: On: 14-Jan-2014 Intent George Bueno MD DXA, BONE DENSITY, AXIAL SKELETON On: 14-Jan-2014 Intent ([id number])By: George Bueno MD MAMMOGRAM, SCREENING, BOTH BREASTS On: 14-Jan-2014 Intent ([id number])By: George Bueno MD Eprescribed prescriptions ([id number])By: On: 14-Jan-2014 Intent George Bueno MD FLU VAC, SPLIT, >3 YEARS, INTRAMUSC On: 06-Sep-2013 Intent ([id number])By: PAM Sanz Comments: Lot #:[id number] date:03.15Amount given:0.5mlRoute: IMSite given:L DltdGiven by: VIS and ABN signed ADMINISTRATION OF INFLUENZA VIRUS On: 06-Sep-2013 Intent VACCINE (G0008)By: PAM Sanz Breast Screening - BilateralBy: On: 05-Jul-2013 Intent George Bueno MD Eprescribed prescriptions ([id number])By: On: 07-Mar-2013 Intent Shelby Padilla ELECTROCARDIOGRAM, COMPLETE (ECG) On: 14-Dec-2012 Intent ([id number])By: Nguyen Santana CNP, CNP, Mary E ADMINISTRATION OF INFLUENZA VIRUS On: 11-Sep-2012 Intent VACCINE (G0008)By: George Bueno MD FLU VAC, SPLIT, >3 YEARS, INTRAMUSC On: 11-Sep-2012 Intent ([id number])By: George Bueno MD Eprescribed prescriptions ([id number])By: On: 29-May-2012 Intent George Bueno MD EKG ([id number])By: George Bueno MD On: 28-Feb-2012 Intent Comments: see scanned document of test done to see results reviewed today with patient Holter Monitor 24 hrsBy: Ximena ALEXANDRE, On: 28-Feb-2012 Intent George Moncada DXA, BONE DENSITY, AXIAL SKELETON On: 28-Feb-2012 Intent ([id number])By: George Bueno MD MAMMOGRAM, SCREENING, BOTH BREASTS On: 28-Feb-2012 Intent ([id number])By: George Bueno MD Pulse Oximetry ([id number])By: Yvon On: 28-Feb-2012 Intent PAM Ultrasound - AortaBy: Ximena ALEXANDRE, On: 17-Jan-2012 Intent George Moncada Carotid DopplerBy: George Bueno MD On: 17-Jan-2012 Intent Pulse Oximetry ([id number])By: Yvon On: 17-Jan-2012 Intent PAM Spirometry ([id number])By: Max GIVENS, On: 10-Jan-2012 Intent Nguyen Skinner CNP Comments: Servere airway obstruction with low vital capacity Aerosol Treatment ([id number])By: Max On: 10-Jan-2012 Intent Nguyen GIVENS CNP, Mary E Solu -Medrol Injection, 125 mg On: 03-Jan-2012 Intent ([id number])By: Nguyen Santana CNP Comments: Lot # [id number]-R hip. IMDose 125nggiven by:Nguyen Lane CNP Radiology - ChestBy: Nguyen Santana CNP On: 03-Jan-2012 Intent E Nguyen Santana CNP Aerosol Treatment ([id number])By: Max On: 03-Jan-2012 Intent Nguyen GIVENS CNP, Mary E Pulse Oximetry ([id number])By: Gab BETHEA, On: 03-Jan-2012 Intent Taryn Solu -Medrol Injection, 125 mg On: 30-Dec-2011 Intent ([id number])By: Max GIVENS Nguyen Briones Brittanyadrien Comments: Lot #[id number]-left hipDose-125mggiven by: Marie Alvarado LPN Nguyen GIVENS Aerosol Treatment ([id number])By: Max On: 30-Dec-2011 Intent Nguyen GIVENS CNP, Mary E Solu -Medrol Injection, 125 mg On: 28-Dec-2011 Intent ([id number])By: Max GIVENS Nguyen Briones Nurisglynn Comments: Lot #[id number]-right hipDose-125 mggiven by: Marie Alvarado LPN CNP Nguyen Briones Aerosol Treatment ([id number])By: Max On: 28-Dec-2011 Intent Nguyen GIVENS CNP, Mary E Pulse Oximetry ([id number])By: Max GIVENS, On: 26-Dec-2011 Intent Nguyen Skinner CNP Aerosol Treatment ([id number])By: Max On: 26-Dec-2011 Intent Nguyen GIVENS CNP, Mary E FLU VAC, SPLIT, >3 YEARS, INTRAMUSC On: 19-Aug-2011 Intent ([id number])By: George Bueno MD Comments: refuse Echo CompleteBy: George Bueno MD On: 23-Jun-2011 Intent Nuclear Stress Test/Stress On: 23-Jun-2011 Intent SPECT/TreadmillBy: George Bueno MD EKG ([id number])By: George Bueno MD On: 23-Jun-2011 Intent ADMINISTRATION OF PNEUMOCOCCAL On: 15-Dec-2010 Intent VACCINE (G0009)By: George Bueno MD PNEUM VAC ADLT/IMUMNOSPR, SBC/INTRM On: 15-Dec-2010 Intent ([id number])By: George Bueno MD MAMMOGRAM, SCREENING, BOTH BREASTS On: 15-Dec-2010 Intent ([id number])By: George Bueno MD Eprescribed prescriptions ([id number])By: On: 15-Dec-2010 Intent George Bueno MD Aerosol Treatment ([id number])By: Ximena On: 06-Dec-2010 Intent George ALEXANDRE Pulse Oximetry ([id number])By: Yvon On: 06-Dec-2010 Intent PAM Spirometry ([id number])By: Ximena ALEXANDRE, On: 31-Aug-2010 Intent George Moncada Radiology - ChestBy: George Bueno MD On: 31-Aug-2010 Intent Antwan Nuclear Stress Test/Stress On: 27-May-2010 Intent SPECT/TreadmillBy: George Bueno MD ELECTROCARDIOGRAM, COMPLETE (ECG) On: 27-May-2010 Intent ([id number])By: George Bueno MD Spirometry ([id number])By: Ximena ALEXANDRE, On: 27-May-2010 Intent George Moncada Pulse Oximetry ([id number])By: Ximena ALEXANDRE, On: 27-May-2010 Intent George Moncada MRI - BrainBy: George Bueno MD On: 27-May-2010 Intent Aerosol Treatment ([id number])By: Feliciano DRUMMOND, On: 22-Mar-2010 Intent Holly Lawton Pulse Oximetry ([id number])By: Ashlee On: 22-Mar-2010 Intent Stephanie Comments: 95%- spirometry with mod airway obsst CT - Brain/Head (IV Contrast On: 04-Feb-2010 Intent Needed)By: George Bueno MD Comments: attention posterior fossa EKG ([id number])By: George Bueno MD On: 01-Jan-2010 Intent DXA, BONE DENSITY, AXIAL SKELETON On: 01-Jan-2010 Intent ([id number])By: George Bueno MD MAMMOGRAM, SCREENING, BOTH BREASTS On: 01-Jan-2010 Intent ([id number])By: George Bueno MD MRI - Shoulder(s) - RightBy: Ximena On: 01-Jan-2010 Intent George ALEXANDRE Radiology - Shoulder - RightBy: On: 07-Jan-2009 Intent George Bueno MD Holter Monitor 24 hrsBy: Ximena ALEXANDRE, On: 09-Dec-2008 Intent George Moncada ELECTROCARDIOGRAM, COMPLETE (ECG) On: 09-Dec-2008 Intent ([id number])By: George Bueno MD Spirometry ([id number])By: Ximena ALEXANDRE, On: 09-Dec-2008 Intent George Moncada Pulse Oximetry ([id number])By: Ximena ALEXANDRE, On: 09-Dec-2008 Intent George Moncada EKG ([id number])By: George Bueno MD On: 29-May-2008 Intent Nuclear Stress Test/Stress On: 29-May-2008 Intent SPECT/TreadmillBy: George Bueno MD Pulse Oximetry ([id number])By: Daniel ABLA, On: 13-Mar-2008 Intent Gin SPECIMEN HNDLNG/TRNSPRT, OFFC > LAB On: 13-Mar-2008 Intent ([id number])By: Gin Sanchez LPN Echo CompleteBy: George Bueno MD On: 29-Nov-2007 Intent Radiology - Lumbar SpineBy: Ximena On: 29-May-2007 Intent George ALEXANDRE Radiology - Ankle - LeftBy: Ximena On: 28-Jun-2006 Intent George ALEXANDRE Planned Medications INJECTION, METHYLPREDNISOLONE SODIUM SUCCINATE, UP TO 125 MG Ordered: 28-Dec-2011 Pending Ciesa [employer] FOUNDER AND CHIEF STRATEGY OFFICER, Mary Ciesa [employer] FOUNDER AND CHIEF STRATEGY OFFICER, Mary INJECTION, METHYLPREDNISOLONE SODIUM SUCCINATE, UP TO 125 MG Ordered: 30-Dec-2011 Pending Ciesa [employer]OUNDER AND CHIEF STRATEGY OFFICER, Mary Ciesa [employer] FOUNDER AND CHIEF STRATEGY OFFICER, Mary INJECTION, METHYLPREDNISOLONE SODIUM SUCCINATE, UP TO 125 MG Ordered: 03-Jan-2012 Pending Ciesa [employer] FOUNDER AND CHIEF STRATEGY OFFICER, Mary Ciesa [employer] FOUNDER AND CHIEF STRATEGY OFFICER, Mary INJECTION, TRIAMCINOLONE ACETONIDE, NOT OTHERWISE SPECIFIED, 10 MG Ordered: 14-Jan-2014 Pending George Beuno MD INJECTION, TRIAMCINOLONE ACETONIDE, NOT OTHERWISE SPECIFIED, 10 MG Ordered: 14-Jan-2014 Pending George Bueno MD INJECTION, TRIAMCINOLONE ACETONIDE, NOT OTHERWISE SPECIFIED, 10 MG Ordered: 14-Jan-2014 Pending George Bueno MD INJECTION, TRIAMCINOLONE ACETONIDE, NOT OTHERWISE SPECIFIED, 10 MG Ordered: 14-Jan-2014 Pending George Bueno MD INJECTION, TRIAMCINOLONE ACETONIDE, NOT OTHERWISE SPECIFIED, 10 MG Ordered: 20-Mar-2015 Pending Ximena ALEXANDRE, George Moncada Instructions Name Dates Details BMI 27.0-27.9,adult : How to access health information online Indication: BMI 27.0-27.9,adult BMI 27.0-27.9,adult : How to access health information online - Detail Indication: BMI 27.0-27.9,adult Encounter for Medicare annual wellness exam : Patient Instructions Indication: Encounter for Medicare annual wellness exam Nonsmoker : How to access health information online Indication: Nonsmoker Nonsmoker : How to access health information online - Detail Indication: Nonsmoker Nonsmoker : Patient Instructions Indication: Nonsmoker Nonsmoker : How to access health information online Indication: Nonsmoker Nonsmoker : How to access health information online - Detail Indication: Nonsmoker BMI 27.0-27.9,adult : Patient Instructions Indication: BMI 27.0-27.9,adult Nonsmoker : How to access health information online Indication: Nonsmoker Nonsmoker : How to access health information online - Detail Indication: Nonsmoker Hypertension : Patient Instructions Indication: Hypertension Nonsmoker : How to access health information online Indication: Nonsmoker Nonsmoker : How to access health information online - Detail Indication: Nonsmoker Nonsmoker : Patient Instructions Indication: Nonsmoker Nonsmoker : How to access health information online Indication: Nonsmoker Nonsmoker : How to access health information online - Detail Indication: Nonsmoker Sinusitis : Patient Instructions Indication: Sinusitis Hypertension : Patient Instructions Indication: Hypertension BMI 28.0-28.9,adult : How to access health information online Indication: BMI 28.0-28.9,adult BMI 28.0-28.9,adult : How to access health information online - Detail Indication: BMI 28.0-28.9,adult BMI 28.0-28.9,adult : Patient Instructions Indication: BMI 28.0-28.9,adult Knee pain, right : How to access health information online Indication: Knee pain, right Knee pain, right : How to access health information online - Detail Indication: Knee pain, right Knee pain, right : Patient Instructions Indication: Knee pain, right Hypertension : How to access health information online Indication: Hypertension Hypertension : How to access health information online - Detail Indication: Hypertension Hypertension : Patient Instructions Indication: Hypertension BMI 28.0-28.9,adult : How to access health information online Indication: BMI 28.0-28.9,adult BMI 28.0-28.9,adult : Patient Instructions Indication: BMI 28.0-28.9,adult Current nonsmoker (Renamed from Current non-smoker) : How to access health information online Indication: Current nonsmoker (Renamed from Current non-smoker) Current nonsmoker (Renamed from Current non-smoker) : How to access health information online - Detail Indication: Current nonsmoker (Renamed from Current non-smoker) SOB (shortness of breath) on exertion : Patient Instructions Indication: SOB (shortness of breath) on exertion Hypertension : How to access health information online Indication: Hypertension Hypertension : How to access health information online - Detail Indication: Hypertension Hypertension : Patient Instructions Indication: Hypertension Hypertension : DISCONTINUED - URINALYSIS (47413) Indication: Hypertension Hypertension : DISCONTINUED - MICROALBUMIN: CREATININE RATIO (20032) AND (73750) Indication: Hypertension Screening for breast cancer : DISCONTINUED - BILATERAL MAMMOGRAMS (30079) Indication: Screening for breast cancer Osteoporosis : DISCONTINUED - Bone Density Study Indication: Osteoporosis UTI symptoms : How to access health information online Indication: UTI symptoms UTI symptoms : How to access health information online - Detail Indication: UTI symptoms UTI symptoms : Patient Instructions Indication: UTI symptoms Hypercholesterolemia : How to access health information online Indication: Hypercholesterolemia Hypercholesterolemia : How to access health information online - Detail Indication: Hypercholesterolemia Hypercholesterolemia : Patient Instructions Indication: Hypercholesterolemia Asthma, intrinsic, mild intermittent, with status asthmaticus : Patient Instructions Indication: Asthma, intrinsic, mild intermittent, with status asthmaticus Anxiety : How to access health information online Indication: Anxiety Anxiety : How to access health information online - Detail Indication: Anxiety Anxiety : Patient Instructions Indication: Anxiety Anxiety : How to access health information online Indication: Anxiety Anxiety : How to access health information online - Detail Indication: Anxiety Anxiety : Patient Instructions Indication: Anxiety Stress incontinence, female : How to access health information online Indication: Stress incontinence, female Stress incontinence, female : How to access health information online - Detail Indication: Stress incontinence, female Stress incontinence, female : Patient Instructions Indication: Stress incontinence, female Pain, joint, shoulder region, right : How to access health information online - Detail Indication: Pain, joint, shoulder region, right Pain, joint, shoulder region, right : Patient Instructions Indication: Pain, joint, shoulder region, right Osteoarthritis : How to access health information online Indication: Osteoarthritis Osteoarthritis : How to access health information online - Detail Indication: Osteoarthritis Osteoarthritis : Patient Instructions Indication: Osteoarthritis Asthma, intrinsic, mild intermittent, with status asthmaticus : How to access health information online Indication: Asthma, intrinsic, mild intermittent, with status asthmaticus Asthma, intrinsic, mild intermittent, with status asthmaticus : How to access health information online - Detail Indication: Asthma, intrinsic, mild intermittent, with status asthmaticus Asthma, intrinsic, mild intermittent, with status asthmaticus : Patient Instructions Indication: Asthma, intrinsic, mild intermittent, with status asthmaticus Fever and chills : How to access health information online Indication: Fever and chills Fever and chills : Patient Instructions Indication: Fever and chills Hypercholesterolemia : Patient Instructions Indication: Hypercholesterolemia Encounter for Medicare annual wellness exam : Patient Instructions Indication: Encounter for Medicare annual wellness exam Hypertension : Patient Instructions Indication: Hypertension NEED FOR PROPHYLACTIC VACCINATION AND INOCULATION AGAINST INFLUENZA (V04.81) (Renamed from NEED FOR PROPHYLACTIC VACCINATION AND INOCULATION AGAINST INFLUENZA) : Patient Instructions Indication: NEED FOR PROPHYLACTIC VACCINATION AND INOCULATION AGAINST INFLUENZA (V04.81) (Renamed from NEED FOR PROPHYLACTIC VACCINATION AND INOCULATION AGAINST INFLUENZA) Anxiety : Patient Instructions Indication: Anxiety Hypertension : Patient Instructions Indication: Hypertension Joint inflammation : Patient Instructions Indication: Joint inflammation Hypertension : Patient Instructions Indication: Hypertension Encounters Office Visit On: 30-Jul-2018 13:24 Encounter Reason: Annual Medicare Exam - The patient had reviewed and updated the family history, medication/s, past medical history and social history. Yes the patient did have a mini mental status exam done today. The End: 30-Jul-2018 14:55 activities of daily living the patient needs help with are none. The patient has had fecal incontinence, had urinary incontinence, driven in past 6 months, has a medalert necklace or bracelet and put leal ndrails in bathroom, but the patient has not missed or ran out of medications to soon, fallen in the past 6 months, gotten lost or put area rugs through house. The patient has completed the following pr eventative measures: mammography (scheduled for 09/11/18 as well as bone density) and colonoscopy ([address] hernandez). The patient does have durable power of energy attorney and living will. The patient has noticed dropping activities and interests, poor spirits most of time, staying at home rather than doing something new or going out, having problems with memory than others, feeling worthless and lack of energy. Other providers contributing to the patient's care are video game designer (nusrat) and other: (last eye exam 2018- dr. whaley). Note for Annual Medicare Exam: Here for Medicare physical. Abby duncan ld also like to have a referral to Dr. Gonzalez instead of [place].Encounter Diagnosis: Encounter for Medicare annual wellness exam, Hypertension, Nonsmoker, BMI 27.0- 27.9,adult, IBS (irritable bowel syndrome), Urinary incontinence [facility] Office Visit On: 09-Jul-2018 11:07 Encounter Reason: Follow up Meds - The patient feels well with minor complaints (diahrrea). Patient has been compliant with instructions. Current medication use: not considered effective by patient., End: 09-Jul-2018 11:46 [ADDITIONAL REASON] Diarrhea - Note for Diarrhea: Diarrhea unresolved has had diarrhea for last 1-2 years, multiple treatments Encounter Diagnosis: Nonsmoker, BMI 27.0-27.9,adult, IBS (irritable bowel syndrome) [facility] Office Visit On: 02-Jul-2018 14:05 Encounter Reason: Follow up tests - Diagnostic tests include other (labs). Date: (06/11/18)., [ADDITIONAL REASON] Follow up Meds - The patient feels well with minor complaints. Patient has been End: 02-Jul-2018 15:05 compliant with instructions. Current medication use: no side effects and compliant with dosing regimen. Encounter Diagnosis: Nonsmoker, BMI 27.0-27.9,adult, IBS (irritable bowel syndrome), Need for zoster vaccination [facility] Office Visit On: 11-Jun-2018 14:34 Encounter Reason: low diastolic bp - bp ranges from 145-120/50-71 onset- 6 weekssymptoms are fatigue, [ADDITIONAL REASON] Follow up for chronic medical issues - The patient feels well with minor complai End: 11-Jun-2018 15:46 nts, has decreased energy level and is sleeping well. Patient has been compliant with instructions. Current medication use: experiencing side effects (diarrhea). Patient sleeps 7 hours per night. Nutrit ion: inappropriate diet and supplemental vitamins. The medical issues the patient is following up for include asthma, cardiac issues, depression, high blood pressure, high cholesterol, osteoarthritis, o steoporosis/osteopenia and other (diverticulosis, IBS, allergic rhinitis ). blood pressure range :. Note for Follow up for chronic medical issues: several problems to discuss Encounter Diagnosis: Nonsmoker, BMI 27.0-27.9,adult, Need for prophylactic vaccination and inoculation against influenza (Renamed from Need for immunization against influenza), Postmenopausal (Renamed from Postmenopausal status), Encounter for screening mammogram for breast cancer (Renamed from Encounter for screening mammogram for malignant neoplasm of breast), Hot flashes, IBS (irritable bowel syndrome), Unspecified abnormal involuntary movements, Hypertension [facility] Office Visit On: 19-Dec-2017 13:16 Encounter Reason: Follow up tests - Date: (November 2017)., [ADDITIONAL REASON] Follow up for chronic medical issues - The patient feels well with minor complai End: 19-Dec-2017 13:53 nts (right knee) and has decreased energy level (ups and downs). Patient has been compliant with instructions. Patient sleeps 7 hours per night. Impact of disease: emotional impact-mild. Nutrition: mariano nced diet and supplemental vitamins. The medical issues the patient is following up for include asthma, cardiac issues, depression, high blood pressure, high cholesterol, osteoarthritis, osteoporosis/os teopenia and other (diverticulosis, IBS, allergic rhinitis ). , [ADDITIONAL REASON] Diarrhea - Note for Diarrhea: Has 1 normal BM in am then 1-2 diarrhea stools in am. coccuring x several years, has had colonoscopy's last by Mary and normal. Encounter Diagnosis: Nonsmoker, BMI 27.0-27.9,adult, Hypercholesterolemia, Hypertension, Osteoarthritis, Anxiety, IBS (irritable bowel syndrome), Urinary incontinence [facility] Annotation/Addendum On: 10-Nov-2017 13:34 Encounter Diagnosis: Unspecified Diagnosis End: 10-Nov-2017 13:36 [facility] Office Visit On: 09-Nov-2017 8:50 Encounter Reason: Cold Symptoms - Symptoms include runny nose, sore throat, productive cough, facial pain and headache. Onset was sudden 2 day(s) ago. The patient describes this as moderate in severity and worsening. Ass End: 09-Nov-2017 10:37 ociated symptoms include wheezing, shortness of breath and fatigue, while associated symptoms do not include nausea, vomiting, diarrhea, fever or chills. Note for Cold symptoms: Symptoms started 3 day s ago with cough-yellow, nasal drainage-clear to yellow, headaches, sinus tenderness, SOB, wheezing, chills, sore throat, slight body aches. No ear pressure or pain, fever. Has taken some cold medication and robitussin, tyelnol.Encounter Diagnosis: BMI 28.0-28.9,adult, Nonsmoker, Sinusitis, Cough, Sore throat, Decreased lung sounds, Flu-like symptoms, Asthma, intrinsic, mild intermittent, with status asthmaticus [facility] Office Visit On: 15-Sep-2017 13:45 Encounter Reason: Follow up for chronic medical issues - The patient feels well with minor complaints (right knee), has decreased energy level and is sleeping poorly (used to take 2 tylenol before bed, a few people told End: 15-Sep-2017 14:50 pt she cant have tylenol and meloxicam.). Patient has been compliant with instructions. Current medication use: no side effects, compliant with dosing regimen and considered effective by patient. Aftab t sleeps 7 hours per night. Impact of disease: emotional impact-mild. Nutrition: balanced diet and supplemental vitamins. The medical issues the patient is following up for include asthma, cardiac issue s, depression, high blood pressure, high cholesterol, osteoarthritis, osteoporosis/osteopenia and other (diverticulosis, IBS, allergic rhinitis ).Encounter Diagnosis: Nonsmoker, BMI 28.0-28.9,adult, Fatty liver, Hypertension, Asthma, intrinsic, mild intermittent, with status asthmaticus, Bradycardia (427.89), Diarrhea (787.91), Sinusitis [facility] Office Visit On: 18-Jul-2017 12:58 Encounter Reason: Follow up tests - Diagnostic tests include MRI (right knee). Current symptoms include joint pains.Encounter Diagnosis: Knee pain, right, Nonsmoker, BMI 28.0-28.9,adult, Osteoarthritis End: 18-Jul-2017 13:20 [facility] Office Visit On: 05-Jul-2017 14:10 Encounter Reason: Follow up for chronic medical issues - The patient feels well with minor complaints (right knee), has decreased energy level and is sleeping poorly (used to take 2 tylenol before bed, a few people told End: 05-Jul-2017 14:55 pt she cant have tylenol and meloxicam.). Patient has been compliant with instructions. Current medication use: no side effects, compliant with dosing regimen and considered effective by patient. Patien t sleeps 7 hours per night. Impact of disease: emotional impact-mild. Nutrition: balanced diet and supplemental vitamins. The medical issues the patient is following up for include asthma, cardiac issue s, depression, high blood pressure, high cholesterol, osteoarthritis, osteoporosis/osteopenia and other (diverticulosis, IBS, allergic rhinitis )., [ADDITIONAL REASON] Knee Pain - Note for Knee pain: rt knee pain, have had 7-8 PT knee apts and it has not helped, knee not improving , [ADDITIONAL REASON] Diarrhea - Note for Diarrhea: Diarrhea continues 1-3 liquid stool Encounter Diagnosis: Hypertension, Nonsmoker, BMI 28.0-28.9,adult, Knee pain, right, Left foot pain, IBS (irritable bowel syndrome) [facility] Office Visit On: 14-Jun-2017 11:42 Encounter Reason: Follow up for chronic medical issues - The patient feels well with minor complaints (L foot and R knee pain), has decreased energy level and is sleeping well (varies, taking tylenol beofre bed helps). P End: 14-Jun-2017 12:16 atient has been compliant with instructions. Current medication use: no side effects, compliant with dosing regimen and considered effective by patient. Patient sleeps 7 hours per night. Impact of disea se: emotional impact-mild. Nutrition: balanced diet and supplemental vitamins. The medical issues the patient is following up for include asthma, cardiac issues, depression, high blood pressure, high ch olesterol, osteoarthritis, osteoporosis/osteopenia and other (diverticulosis, IBS, allergic rhinitis ).Encounter Diagnosis: BMI 28.0-28.9,adult, Nonsmoker, Knee pain, right, Fatty liver, Need for prophylactic vaccination and inoculation against influenza (Renamed from Need for immunization against influenza) [facility] Office Visit On: 08-Mar-2017 10:54 Encounter Reason: Follow up for chronic medical issues - The patient feels well with minor complaints (bowels issues), has decreased energy level and is sleeping well (varies). Patient has been compliant with instruction End: 08-Mar-2017 11:40 s. Current medication use: no side effects, compliant with dosing regimen and considered effective by patient. Patient sleeps 7 hours per night. Impact of disease: emotional impact-mild. Nutrition: mariano nced diet and supplemental vitamins. The medical issues the patient is following up for include asthma, cardiac issues, depression, high blood pressure, high cholesterol, osteoarthritis, osteoporosis/os teopenia and other (diverticulosis, IBS, allergic rhinitis )., [ADDITIONAL REASON] Follow up tests - Date: (03/01 blood work). Encounter Diagnosis: BMI 29.0- 29.9,adult, Current nonsmoker (Renamed from Current non-smoker), Fatty liver, Liver cyst, Shoulder pain, left, SOB (shortness of breath) on exertion, Hypertension [facility] Office Visit On: 30-Nov-2016 10:41 Encounter Reason: Follow up for chronic medical issues - The patient feels well with minor complaints (right flank, abd achiness. Left shoulder pain ), has decreased energy level and is sleeping well. Patient has been End: 30-Nov-2016 11:21 compliant with instructions. Current medication use: no side effects, compliant with dosing regimen and considered effective by patient. Patient sleeps 7 hours per night. Impact of disease: emotional im pact-mild. Nutrition: balanced diet and supplemental vitamins. The medical issues the patient is following up for include asthma, cardiac issues, depression, high blood pressure, high cholesterol, osteo arthritis, osteoporosis/osteopenia and other (diverticulosis, IBS, allergic rhinitis ).Encounter Diagnosis: Current nonsmoker (Renamed from Current non-smoker), BMI 29.0-29.9,adult, Hypertension, Anxiety, Hypercholesterolemia, Right flank pain, Shoulder pain, left [facility] Office Visit On: 08-Nov-2016 12:03 Encounter Reason: UTI - The urinary symptoms are described as painful urination, frequency, urgency and burning. The symptoms have been occurring for 6 days and have been constant. The urine is described as clear. The p End: 08-Nov-2016 13:18 atient has been using antibiotics. Note for Infection: [facility] was put on antibiotic generic macrobid, with little relief Encounter Diagnosis: UTI symptoms, BMI 28.0-28.9,adult, Nonsmoker, Abdominal bloating, Osteoporosis, Screening for breast cancer, Hypertension [facility] Office Visit On: 23-Aug-2016 7:27 Encounter Reason: Follow up for chronic medical issues - The patient feels well with minor complaints (epigastric pain, issue with anxiety/depression. Also has a spot on my nose and leg I'd like looked at. ), has decreas End: 23-Aug-2016 11:55 ed energy level and is sleeping well. Patient has been compliant with instructions. Current medication use: no side effects, compliant with dosing regimen and considered effective by patient. Patient sl eeps 7 hours per night. Impact of disease: emotional impact-mild. Nutrition: balanced diet and supplemental vitamins. The medical issues the patient is following up for include asthma, cardiac issues, d epression, high blood pressure, high cholesterol, osteoarthritis, osteoporosis/osteopenia and other (diverticulosis, IBS, allergic rhinitis )., [ADDITIONAL REASON] Follow up tests - Diagnostic tests include other (labs). Encounter Diagnosis: Hypercholesterolemia, Osteoarthritis, Asthma, intrinsic, mild intermittent, with status asthmaticus, Hypertension, Anxiety, BMI 28.0-28.9,adult, Current nonsmoker (Renamed from Current non-smoker), Need for prophylactic vaccination and inoculation against influenza (Renamed from Need for immunization against influenza), Keratosis, actinic, IBS (irritable bowel syndrome), Epigastric discomfort, Tendinitis of left shoulder [facility] Annotation/Addendum On: 18-Mar-2016 15:58 Encounter Diagnosis: Internal hemorrhoid End: 18-Mar-2016 16:00 [facility] Annotation/Addendum On: 15-Mar-2016 15:46 [facility] End: 15-Mar-2016 15:47 Office Visit On: 14-Mar-2016 7:50 Encounter Reason: Follow up for chronic medical issues - The patient feels well with minor complaints (headaches off and on. Sometimes on right, sometimes on left. ), has decreased energy level and is sleeping well. Lisa End: 14-Mar-2016 11:15 ent has been compliant with instructions. Current medication use: no side effects, compliant with dosing regimen and considered effective by patient. Patient sleeps 7 hours per night. Impact of disease: emotional impact-mild. Nutrition: balanced diet and supplemental vitamins. The medical issues the patient is following up for include asthma, cardiac issues, high blood pressure, high cholesterol, oste oarthritis, osteoporosis/osteopenia and other (diverticulosis, IBS, allergic rhinitis )., [ADDITIONAL REASON] Follow up tests - Diagnostic tests include other (labs). Current symptoms include other (headache). Encounter Diagnosis: Anxiety, Current nonsmoker (Renamed from Current non-smoker), Hypertension, Aortic atherosclerosis, Hypercholesterolemia, Osteoporosis, Mitral valve regurgitation, Osteoarthritis, IBS (irritable bowel syndrome), BMI 28.0-28.9,adult, Vaginal atrophy, Asthma, intrinsic, mild intermittent, with status asthmaticus, Screening for breast cancer [facility] Office Visit On: 13-Nov-2015 11:55 Encounter Reason: Follow up acute care visit - The patient feels the same. Patient has been compliant with instructions. Current medication use: no side effects and compliant with dosing regimen. Patient sleeps 7 hours p End: 13-Nov-2015 12:47 er night. Impact of disease: emotional impact-moderate. Nutrition: balanced diet and supplemental vitamins. The medical issues the patient is following up for include depression (patient not notice any difference in mood since being on the 100mg of zoloft ).Encounter Diagnosis: Anxiety, Current nonsmoker (Renamed from Current non-smoker) [facility] Office Visit On: 16-Oct-2015 10:57 Encounter Reason: Follow up acute care visit - The patient has decreased energy level and worsening. Patient has been compliant with instructions. Current medication use: compliant with dosing regimen and not considered End: 16-Oct-2015 12:05 effective by patient (zoloft not help like celexa did ). Patient sleeps 7 hours per night. Impact of disease: emotional impact-moderate. Nutrition: balanced diet and supplemental vitamins. The medical i ssues the patient is following up for include depression.Encounter Diagnosis: Anxiety, Current nonsmoker (Renamed from Current non-smoker), IBS (irritable bowel syndrome), Pain, joint, shoulder region, right [facility] Refill Request On: 29-Sep-2015 17:17 Encounter Diagnosis: Prophylactic antibiotic for dental procedure indicated due to prior joint replacement End: 29-Sep-2015 17:19 [facility] Office Visit On: 15-Sep-2015 10:54 Encounter Reason: Follow up for chronic medical issues - The patient feels well with minor complaints, has decreased energy level and is sleeping well. Patient has been compliant with instructions. Current medication use End: 15-Sep-2015 11:50 : no side effects, compliant with dosing regimen and considered effective by patient. Patient sleeps 7 hours per night. Impact of disease: emotional impact-mild. Nutrition: balanced diet and supplementa l vitamins. The medical issues the patient is following up for include asthma, cardiac issues, high blood pressure, high cholesterol, osteoarthritis, osteoporosis/osteopenia and other (diverticulosis, I BS, allergic rhinitis ). blood pressure range : (114-158/55-72 pulse 49-56).Encounter Diagnosis: Hypertension, Hypercholesterolemia, Stress incontinence, female, Need for prophylactic vaccination and inoculation against influenza (Renamed from Need for immunization against influenza), Mitral Valve Iflesyndanhtt563.6), Osteoporosis (733.00), Irritable bowel syndrome (564.1), ATHEROSCLEROSIS, AORTIC (440.0), Anxiety (300.00), History of colon polyps, Asthma, intrinsic, mild intermittent, with status asthmaticus, Osteoarthritis, Shoulder pain (719.41), Allergic rhinitis [facility] Office Visit On: 19-Mar-2015 10:42 Encounter Reason: Injections - The medication the patient is here to receive is other (2 cc marcaine lot# [id number] exp: 01-31-2016 1cc kenalog lot# [id number] exp right shoulder ).Encounter Diagnosis: Shoulder pain (719.41) End: 20-Mar-2015 15:53 [facility] Office Visit On: 17-Mar-2015 11:04 Encounter Reason: Follow up tests - Date: (03.09.15)., [ADDITIONAL REASON] Annual Medicare Exam - The patient had reviewed and updated the family history, End: 17-Mar-2015 11:52 medication/s, past medical history and social history. Yes the patient did have (2930) a mini mental status exam done today. The activities of daily living the patient needs help with are none. The pat ient has driven in past 6 months, put area rugs through house and put handrails in bathroom, but the patient has not had fecal incontinence, had urinary incontinence, missed or ran out of medications to soon, fallen in the past 6 months, gotten lost or has a medalert necklace or bracelet. The patient has completed the following preventative measures: mammography ( mammo and bd). The patient does have durable power of energy attorney and living will. The patient has noticed nothing from the geriatic depression scale. Other providers contributing to the patient's care are video game designer (Dr Silverio) and other: (Dr ridley saw him nothing new, Dr Whaley -- has eye exam December 2014). , [ADDITIONAL REASON] Follow up for chronic medical issues - The patient feels well with minor complai nts, has decreased energy level and is sleeping well. Patient has been compliant with instructions. Current medication use: no side effects, compliant with dosing regimen and considered effective by destini veronica. Patient sleeps 7 hours per night. Impact of disease: emotional impact-mild. Nutrition: balanced diet and supplemental vitamins. The medical issues the patient is following up for include asthma, c ardiac issues, high blood pressure, high cholesterol, osteoarthritis, osteoporosis/osteopenia and other (diverticulosis, IBS, allergic rhinitis ). blood pressure range : (114-158/55-72 pulse 49-56). Encounter Diagnosis: Hypertension 401.1 (Renamed from Hypertension (401.0)), Osteoporosis (733.00), Hypercholesterolemia (272.0), Osteoarthritis (715.96), Mitral Valve Nclqccovqtmnl896.6), Colon Polyps, History of (V12.72), Asthma,Intrinsic (493.11), Stress incontinence, female, Allergic Rhinitis(477.9), Anxiety (300.00), Irritable bowel syndrome (564.1), ATHEROSCLEROSIS, AORTIC (440.0), Shoulder pain (719.41), Annual Medicare Physical (V70.0) [facility] Office Visit On: 16-Sep-2014 11:09 Encounter Reason: Follow up tests - Date: (September 2014)., [ADDITIONAL REASON] Follow up for chronic medical issues - The patient feels well with minor complai End: 16-Sep-2014 11:54 nts, has decreased energy level and is sleeping well. Patient has been compliant with instructions. Current medication use: no side effects, compliant with dosing regimen and considered effective by destini veronica. Patient sleeps 7 hours per night. Impact of disease: emotional impact-mild. Nutrition: balanced diet and supplemental vitamins. The medical issues the patient is following up for include asthma, c ardiac issues, high blood pressure, high cholesterol, osteoarthritis, osteoporosis/osteopenia and other (diverticulosis, IBS, allergic rhinitis ). blood pressure range : (114-158/55-72 pulse 49-56). Encounter Diagnosis: Hypercholesterolemia (272.0) , Hypertension 401.1 (Renamed from Hypertension (401.0)), Asthma,Intrinsic (493.11), Osteoarthritis (715.96), Osteoporosis (733.00), NEED FOR PROPHYLACTIC VACCINATION AND INOCULATION AGAINST INFLUENZA (V04.81), Stress incontinence, female, Fever and chills, Mitral Valve Szgwtesxicqpp884.6), Colon Polyps, History of (V12.72), Irritable bowel syndrome (564.1), Joint inflammation (716.90), Tremors (781.0), Anxiety (300.00), ATHEROSCLEROSIS, AORTIC (440.0), Allergic Rhinitis(477.9), Annual Medicare Physical (V70.0) [facility] Office Visit On: 01-Sep-2014 7:57 Encounter Reason: Flu Like Symptoms - Symptoms include fever, chills, body aches, sneezing, runny nose (yellow/red/blood), sore throat, hoarseness, productive cough, facial pain and headache. Onset was sudden 4 day(s) ag End: 01-Sep-2014 8:29 o. There is no known event that preceded symptom onset. The symptoms occur constantly. The patient describes this as moderate in severity and worsening. Associated symptoms include plugged ear(s), fatigue, fever and chills.Encounter Diagnosis: Fever and chills, Chronic cough (786.2), ASTHMA, UNSPECIFIED, WITH ACUTE EXACERBATION (493.92) [facility] Office Visit On: 27-May-2014 11:29 Encounter Reason: Follow up for chronic medical issues - The patient feels well with minor complaints, has decreased energy level and is sleeping well. Patient has been compliant with instructions. Current medication use End: 27-May-2014 12:34 : no side effects, compliant with dosing regimen and considered effective by patient. Patient sleeps 7 hours per night. Impact of disease: emotional impact-mild. Nutrition: balanced diet and supplementa l vitamins. The medical issues the patient is following up for include asthma, cardiac issues, high blood pressure, high cholesterol, osteoarthritis, osteoporosis/osteopenia and other (diverticulosis, I BS, allergic rhinitis ). blood pressure range : (114-158/55-72 pulse 49-56).Encounter Diagnosis: Hypertension 401.1 (Renamed from Hypertension (401.0)), Hypercholesterolemia (272.0), Anxiety (300.00), Tremors (781.0), Osteoarthritis (715.96), Joint inflammation (716.90), Asthma,Intrinsic (493.11), Irritable bowel syndrome (564.1), Mitral Valve Fhsgzzvqpnqyy506.6), Colon Polyps, History of (V12.72), Osteoporosis (733.00), Stress incontinence, female, ATHEROSCLEROSIS, AORTIC (440.0), Allergic Rhinitis(477.9) [facility] Office Visit On: 25-Feb-2014 9:32 Encounter Reason: Annual Medicare Exam - The patient had reviewed and updated the family history, medication/s, past medical history and social history. Yes the patient did have a mini mental status exam done today. The End: 25-Feb-2014 10:12 activities of daily living the patient needs help with are none. The patient has had urinary incontinence (just little wear pad. more with cough.), driven in past 6 months, put area rugs through house a nd put handrails in bathroom, but the patient has not had fecal incontinence, missed or ran out of medications to soon, fallen in the past 6 months, gotten lost or has a medalert necklace or bracelet. T he patient has completed the following preventative measures: mammography (August 2013 and dexa was March 2012 - per our records and patient states she has orders but they wouldnt let her schedule as s he was not due yet. ??). The patient does have durable power of energy attorney and living will. The patient has noticed having problems with memory than others. Other providers contributing to the patient's c are are video game designer (Dr Silverio) and other: (Dr Rodrigues and Dr Vides, Dr Whaley -- has eye exam 6.2.14).Encounter Diagnosis: Annual Medicare Physical (V70.0), Stress incontinence, female, Colon Polyps, History of (V12.72), Osteoporosis (733.00), Anxiety (300.00), Hypertension 401.1 (Renamed from Hypertension (401.0)) [facility] Office Visit On: 14-Jan-2014 9:31 Encounter Reason: Follow up for chronic medical issues - The patient feels well with minor complaints, has decreased energy level and is sleeping well. Patient has been compliant with instructions. Current medication use End: 14-Jan-2014 10:25 : no side effects, compliant with dosing regimen and considered effective by patient. Patient sleeps 7 hours per night. Impact of disease: emotional impact-mild. Nutrition: balanced diet and supplementa l vitamins. The medical issues the patient is following up for include asthma, cardiac issues, high blood pressure, high cholesterol, osteoarthritis, osteoporosis/osteopenia and other (diverticulosis, I BS, allergic rhinitis ). blood pressure range : (114-158/55-72 pulse 49-56).Encounter Diagnosis: Hypercholesterolemia (272.0), Hypertension 401.1 (Renamed from Hypertension (401.0)), Osteoarthritis (715.96), Anxiety (300.00), Mitral Valve Sbuxrfddbgzqq471.6), Osteoporosis (733.00), Allergic Rhinitis(477.9), Tremors (781.0), ATHEROSCLEROSIS, AORTIC (440.0), Hypokalemia (276.8), Colon Polyps, History of (V12.72), Asthma,Intrinsic (493.11), Irritable bowel syndrome (564.1), Joint inflammation (716.90), PVC, OTHER PREMATURE BEATS (427.69) [facility] Office Visit On: 06-Sep-2013 9:24 Encounter Reason: Follow up for chronic medical issues - The patient feels well with minor complaints, has decreased energy level and is sleeping well. Patient has been compliant with instructions. Current medication use End: 06-Sep-2013 9:53 : no side effects, compliant with dosing regimen and considered effective by patient. Patient sleeps 7 hours per night. Impact of disease: emotional impact-mild. Nutrition: balanced diet and supplementa l vitamins. The medical issues the patient is following up for include asthma, cardiac issues, high blood pressure, high cholesterol, osteoarthritis, osteoporosis/osteopenia and other (diverticulosis, IBS, allergic rhinitis ).Encounter Diagnosis: NEED FOR PROPHYLACTIC VACCINATION AND INOCULATION AGAINST INFLUENZA (V04.81), Osteoporosis (733.00), Allergic Rhinitis(477.9), Tremors (781.0), Osteoarthritis (715.96), Hypertension 401.1 (Renamed from Hypertension (401.0)), Anxiety (300.00), Mitral Valve Vtksdckitjmpc140.6), Hypercholesterolemia (272.0), Asthma,Intrinsic (493.11), Colon Polyps, History of (V12.72), ATHEROSCLEROSIS, AORTIC (440.0), Irritable bowel syndrome (564.1), Joint inflammation (716.90), PVC, OTHER PREMATURE BEATS (427.69), Hypokalemia (276.8) [facility] Phone Encounter On: 05-Jul-2013 8:56 Encounter Diagnosis: SCREENING FOR BREAST CANCER (V76.10) End: 05-Jul-2013 8:58 [facility] Office Visit On: 07-Mar-2013 11:52 Encounter Reason: Follow up for chronic medical issues - The patient feels well with minor complaints, has decreased energy level and is sleeping well. Patient has been compliant with instructions. Current medication use End: 07-Mar-2013 12:20 : no side effects and compliant with dosing regimen. Patient sleeps 7 hours per night. Impact of disease: emotional impact-mild. Nutrition: balanced diet and supplemental vitamins. The medical issues th e patient is following up for include asthma, cardiac issues, depression, high blood pressure, high cholesterol, osteoarthritis, osteoporosis/osteopenia and other (tremors, headache, IBS )., [ADDITIONAL REASON] Follow up tests - Date: (02/27/13 blood work). Encounter Diagnosis: Hypertension 401.1 (Renamed from Hypertension (401.0)), Anxiety (300.00), Mitral Valve Nckgphtpgrzhy098.6), Osteoarthritis (715.96), Osteoporosis (733.00), Allergic Rhinitis(477.9), ATHEROSCLEROSIS, AORTIC (440.0), Colon Polyps, History of (V12.72), Tremors (781.0), Hypercholesterolemia (272.0), Asthma,Intrinsic (493.11), Irritable bowel syndrome (564.1), Joint inflammation (716.90), PVC, OTHER PREMATURE BEATS (427.69) [facility] Office Visit On: 14-Dec-2012 7:32 Encounter Reason: high blood pressure - The patient has experienced high blood pressure for 1 week. The symptoms have been associated with anxiety, family history of hypertension and use of steroids, while the symptoms End: 14-Dec-2012 15:50 have not been associated with excessive caffeine intake, hypertension w/ prior , kidney disease, sleep apnea symptoms, use of nasal decongestants or use of oral contraceptives.Encounter Diagnosis: Hypertension 401.1 (Renamed from Hypertension (401.0)), Bradycardia (427.89) [facility] Office Visit On: 11-Sep-2012 9:36 Encounter Reason: Follow up tests - Date: (Sep 2012)., [ADDITIONAL REASON] Follow up for chronic medical issues - The patient feels well with minor complai End: 11-Sep-2012 10:41 nts and has decreased energy level. Patient has been compliant with instructions. Current medication use: no side effects and compliant with dosing regimen. Patient sleeps 7 hours per night. Impact of d isease: emotional impact-mild. Nutrition: balanced diet and supplemental vitamins. The medical issues the patient is following up for include asthma, cardiac issues, depression, high blood pressure, hig h cholesterol, osteoarthritis, osteoporosis/osteopenia and other (tremors, headache, IBS ). Encounter Diagnosis: Hypertension 401.1 (Renamed from Hypertension (401.0)), Osteoporosis (733.00), Hypercholesterolemia (272.0), Asthma,Intrinsic (493.11), Mitral Valve Ztvxyfdngbhwn340.6), Sleep disorder (780.50), ATHEROSCLEROSIS, AORTIC (440.0), Anxiety (300.00), Allergic Rhinitis(477.9), Irritable bowel syndrome (564.1), Joint inflammation (716.90), Colon Polyps, History of (V12.72), Tremors (781.0) , Osteoarthritis (715.96), Shoulder pain (719.41), NEED FOR PROPHYLACTIC VACCINATION AND INOCULATION AGAINST INFLUENZA (V04.81) [facility] Phone Encounter On: 03-Sep-2012 14:11 Encounter Diagnosis: Hypertension 401.1 (Renamed from Hypertension (401.0)) End: 03-Sep-2012 14:13 [facility] Office Visit On: 30-Jul-2012 9:23 Encounter Diagnosis: Joint inflammation (716.90) End: 30-Jul-2012 10:00 [facility] Office Visit On: 29-May-2012 7:33 Encounter Reason: Follow up for chronic medical issues - The patient feels well with minor complaints and has decreased energy level. Patient has been compliant with instructions. Current medication use: no side effects End: 29-May-2012 10:03 and compliant with dosing regimen. Patient sleeps 7 hours per night. Impact of disease: emotional impact-mild. Nutrition: balanced diet and supplemental vitamins. The medical issues the patient is follo wing up for include asthma, cardiac issues, depression, high blood pressure, high cholesterol, osteoarthritis, osteoporosis/osteopenia and other (tremors, headache, IBS ).Encounter Diagnosis: Hypertension 401.1 (Renamed from Hypertension (401.0)), FOCAL HYPERHIDROSIS, PRIMARY (705.21), Sleep disorder (780.50), Headache (784.0), Colon Polyps, History of (V12.72), Chronic cough (786.2), Abnormal EKG (794.31), Osteoporosis (733.00), Osteoarthritis (715.96), Shoulder pain (719.41), Urinary retention (788.20), Irritable bowel syndrome (564.1), ATHEROSCLEROSIS, AORTIC (440.0), Bradycardia (427.89), Mitral Valve Nnopmejinaynz856.6), Hip bursitis 726.5, Hypercholesterolemia (272.0), Anxiety (300.00), Osteopenia (733.90), Allergic Rhinitis(477.9), Tremors (781.0), Asthma,Intrinsic (493.11), Sciatica (724.3), Chest pain (786.59), Other ankle sprain (845.09), Low back pain (724.2), Other specified pruritic conditions, Rash (782.1), URINARY TRACT INFECTION, NOS (599.0), oncomycosis, WWV V73.21 (Renamed from WWV-Bare), Dysuria (788.1) [facility] Office Visit On: 28-Feb-2012 9:39 Encounter Reason: Follow up for chronic medical issues - The patient feels well with minor complaints and has decreased energy level. Patient has been compliant with instructions. Current medication use: no side effects End: 28-Feb-2012 10:23 and compliant with dosing regimen. Patient sleeps 7 hours per night. Impact of disease: emotional impact-mild. Nutrition: balanced diet and supplemental vitamins. The medical issues the patient is follo wing up for include asthma, cardiac issues, high blood pressure, high cholesterol, osteoarthritis, osteoporosis/osteopenia and other (allergic rhinitis, IBS, urinary retention ).Encounter Diagnosis: SOB (786.05), Headache (784.0), Hypertension 401.1 (Renamed from Hypertension (401.0)), Chronic cough (786.2), Colon Polyps, History of (V12.72), Irritable bowel syndrome (564.1), Osteopenia (733.90), Anxiety (300.00), Allergic Rhinitis(477.9), Asthma,Intrinsic (493.11), Tremors (781.0), Bradycardia (427.89), Hypercholesterolemia (272.0), ATHEROSCLEROSIS, AORTIC (440.0), Mitral Valve Doxddvsykhoen486.6), Hip bursitis 726.5 [facility] Office Visit On: 17-Jan-2012 11:43 Encounter Reason: Follow up hospital - Reason for ER visit: note: (acute exacerbation of asthma ). The patient feels well with minor complaints and has decreased energy level. Patient has been compliant with instructions End: 17-Jan-2012 12:58 . Current medication use: no side effects and compliant with dosing regimen. Patient sleeps 7 hours per night. Impact of disease: emotional impact-mild. Nutrition: balanced diet and supplemental vitamins.Encounter Diagnosis: ASTHMA, UNSPECIFIED, WITH ACUTE EXACERBATION (493.92), ATHEROSCLEROSIS, AORTIC (440.0), Dizziness (780.4) [facility] Office Visit On: 10-Jan-2012 9:26 Encounter Reason: Follow up acute care visit - The patient feeling better since last seen, has decreased energy level and improving. Patient has been compliant with instructions. Current medication use: no side effects, End: 10-Jan-2012 10:28 compliant with dosing regimen and not considered effective by patient. Patient sleeps 6 hours per night. The medical issues the patient is following up for include All identified problems below and asthma.Encounter Diagnosis: ASTHMA, UNSPECIFIED, WITH ACUTE EXACERBATION (493.92), Chronic cough (786.2), SYMPTOM, WHEEZING (786.07) [facility] Office Visit On: 03-Jan-2012 11:16 Encounter Reason: Follow up acute care visit - The patient feeling better since last seen and improving. Patient has been compliant with instructions. Current medication use: experiencing side effects (diarrhea with atb) End: 03-Jan-2012 12:05 , compliant with dosing regimen and considered effective by patient. Patient sleeps 5 hours per night. Impact of disease: emotional impact-mild. Nutrition: balanced diet and supplemental vitamins. The m edical issues the patient is following up for include asthma.Encounter Diagnosis: SYMPTOM, WHEEZING (786.07), ASTHMA, UNSPECIFIED, WITH ACUTE EXACERBATION (493.92), Chronic cough (786.2), Diarrhea (787.91) [facility] Office Visit On: 30-Dec-2011 9:46 Encounter Reason: Follow up acute care visit - The patient does not feel well and has decreased energy level. Patient has been compliant with instructions. Current medication use: no side effects, compliant with dosing r End: 30-Dec-2011 12:49 egimen and not considered effective by patient. Patient sleeps 6 hours per night. The medical issues the patient is following up for include All identified problems below and asthma.Encounter Diagnosis: ASTHMA, UNSPECIFIED, WITH ACUTE EXACERBATION (493.92), SYMPTOM, WHEEZING (786.07) [facility] Office Visit On: 28-Dec-2011 8:42 Encounter Reason: Follow up acute care visit - The patient feeling better since last seen and improving. Patient has been compliant with instructions. Current medication use: no side effects, compliant with dosing regime End: 28-Dec-2011 12:18 n and considered effective by patient. Patient sleeps 5 (broken ) hours per night. The medical issues the patient is following up for include All identified problems below and asthma.Encounter Diagnosis: SYMPTOM, WHEEZING (786.07), ASTHMA, UNSPECIFIED, WITH ACUTE EXACERBATION (493.92) [facility] Office Visit On: 26-Dec-2011 8:50 Encounter Reason: Cough - The onset of the cough has been sudden. The cough is characterized as productive of mucoid sputum. The amount of sputum produced is scanty. The cough occurs all the time. The symptoms are aggra End: 26-Dec-2011 16:57 vated by supine posture. The symptoms have been associated with headache (frontal), hoarseness, runny nose, sore throat and wheezing, while the symptoms have not been associated with dyspnea or fever. the color of the sputum is yellowish and bloody. Encounter Diagnosis: ASTHMA, UNSPECIFIED, WITH ACUTE EXACERBATION (493.92), Chronic cough (786.2), SOB (786.05), SYMPTOM, WHEEZING (786.07), Diarrhea (787.91), Allergic Rhinitis(477.9) [facility] Office Visit On: 19-Aug-2011 10:10 Encounter Reason: Follow up acute care visit - The patient feeling better since last seen and improving. Patient has been compliant with instructions. Current medication use: no side effects and compliant with dosing reg End: 19-Aug-2011 10:46 imen. Patient sleeps 7 hours per night. Impact of disease: emotional impact-moderate. Nutrition: balanced diet and supplemental vitamins. The medical issues the patient is following up for include depression and high blood pressure. Encounter Diagnosis: Hypertension 401.1 (Renamed from Hypertension (401.0)), Anxiety (300.00), Hypercholesterolemia (272.0) [facility] Office Visit On: 07-Jul-2011 11:06 Encounter Reason: Follow up, Diagnostic Procedure Results - Diagnostic tests include treadmill exercise stress test. Date: (). Follow up visit with no current symptoms.Encounter Diagnosis: Hypercholesterolemia (272.0), Proteinuria (791.0), End: 07-Jul-2011 11:47 Abnormal EKG (794.31), Hypertension 401.1 (Renamed from Hypertension (401.0)), Anxiety (300.00) [facility] Office Visit On: 23-Jun-2011 10:25 Encounter Diagnosis: Abnormal EKG (794.31) End: 23-Jun-2011 10:30 [facility] Office Visit On: 23-Jun-2011 9:43 Encounter Reason: Follow up for chronic medical issues - The patient feels well with minor complaints and has good energy level. Patient has been compliant with instructions. Current medication use: no side effects and c End: 23-Jun-2011 10:17 ompliant with dosing regimen. Patient sleeps 7 hours per night. Impact of disease: emotional impact-mild. Nutrition: balanced diet and supplemental vitamins. The medical issues the patient is following up for include asthma, cardiac issues, depression, high blood pressure, osteoarthritis, osteoporosis/osteopenia and other (tremors, IBS ).Encounter Diagnosis: Headache (784.0), Anxiety (300.00), Hypercholesterolemia (272.0), Hypertension 401.1 (Renamed from Hypertension (401.0)), Osteoporosis (733.00), Proteinuria (791.0), Colon Polyps, History of (V12.72), Asthma,Intrinsic (493.11), FOCAL HYPERHIDROSIS, PRIMARY (705.21) [facility] Office Visit On: 10-Mar-2011 9:16 Encounter Reason: Conjunctivitis - The last clinic visit was 10 day(s) ago. Management changes made at the last visit include adding medication (eye drops). Symptoms include purulent ocular discharge (yellow), ocular irr End: 10-Mar-2011 9:39 itation and ocular itching. Symptoms are located in both eyes. The patient describes the pain as aching. Onset was gradual 10 day(s) ago. There is no known event that preceded symptom onset. The symptom s occur constantly. Note for Conjunctivitis: was seen on 03/03 and was treated for conjunctivitis with gentamiacin drops- she says that they haven't really helped much.Encounter Diagnosis: Acute Conjuctivitis (372.01) [facility] Office Visit On: 03-Mar-2011 10:54 Encounter Diagnosis: Acute Conjuctivitis (372.01) End: 03-Mar-2011 11:40 [facility] Office Visit On: 15-Dec-2010 10:23 Encounter Reason: Follow up for chronic medical issues - The patient feels well with minor complaints (I have a respiratory infection- I am on atb's and am doing somewhat better, but not completely.), has decreased thierry End: 15-Dec-2010 11:06 rgy level and is sleeping well. Patient has been compliant with instructions. Current medication use: no side effects, compliant with dosing regimen and considered effective by patient. Patient sleeps 7 hours per night. Impact of disease: emotional impact-mild. Nutrition: balanced diet and supplemental vitamins. The medical issues the patient is following up for include asthma, cardiac issues, depress ion, high blood pressure, high cholesterol, osteoarthritis, osteoporosis/osteopenia and other (IBS ). blood pressure range : (117-165/55-74).Encounter Diagnosis: Hypertension 401.1 (Renamed from Hypertension (401.0)), Osteoporosis (733.00), Hypercholesterolemia (272.0), Anxiety (300.00), Chronic cough (786.2), Mitral Valve Xuwftltvbfzsk609.6), Irritable bowel syndrome (564.1), Asthma,Intrinsic (493.11), Colon Polyps, History of (V12.72), Allergic Rhinitis(477.9), Proteinuria (791.0), WWV V73.21 (Renamed from WWV-Bare) [facility] Phone Encounter On: 09-Dec-2010 10:24 Encounter Diagnosis: BRONCHITIS, NOT SPECIFIED ACUTE OR CHRONIC (490.) End: 09-Dec-2010 10:25 [facility] Erroneous Entry On: 09-Dec-2010 7:16 Encounter Diagnosis: Hypertension 401.1 (Renamed from Hypertension (401.0)) End: 09-Dec-2010 7:22 [facility] Office Visit On: 06-Dec-2010 13:29 Encounter Reason: Cough - The onset of the cough has been acute and has been occurring in a persistent pattern for 2 days. The course has been constant. The cough is characterized as dry. The amount of sputum produced is End: 06-Dec-2010 13:48 scanty. The cough occurs all the time. The symptoms have been associated with dyspnea, headache, hoarseness and runny nose. Note for Cough: not have yellow or green.alot of drainageEncounter Diagnosis: SOB (786.05), BRONCHITIS, NOT SPECIFIED ACUTE OR CHRONIC (490.) [facility] Office Visit On: 31-Aug-2010 9:37 Encounter Reason: Follow up for chronic medical issues - The patient feels well with minor complaints and has decreased energy level. Patient has been compliant with instructions. Current medication use: no side effects, End: 31-Aug-2010 10:29 compliant with dosing regimen and considered effective by patient. Patient sleeps 7 hours per night. Impact of disease: emotional impact-mild. Nutrition: balanced diet and supplemental vitamins. The me dical issues the patient is following up for include asthma, cardiac issues, depression, high blood pressure, high cholesterol, osteoarthritis, osteoporosis/osteopenia and other (IBS ).Encounter Diagnosis: Diarrhea (787.91), Osteopenia (733.90), Colon Polyps, History of (V12.72), Osteoarthritis (715.96), Hypertension 401.1 (Renamed from Hypertension (401.0)), Hypercholesterolemia (272.0), Allergic Rhinitis(477.9), Asthma,Intrinsic (493.11), Sleep disorder (780.50), Tremors (781.0), Mitral Valve Lsbztvcwminue013.6), Anxiety (300.00), Osteoporosis (733.00), Irritable bowel syndrome (564.1), Viral syndrome (079.99) [facility] Office Visit On: 17-Jun-2010 8:05 Encounter Reason: Follow up acute care visit - The patient feeling better since last seen and improving. Patient has been compliant with instructions. Current medication use: no side effects and compliant with dosing reg End: 17-Jun-2010 9:04 imen. Patient sleeps 7 hours per night. Impact of disease: emotional impact-mild. Nutrition: balanced diet and supplemental vitamins. The medical issues the patient is following up for include other (shortness of breath, dizziness). Encounter Diagnosis: Dysuria (788.1), Tremors (781.0), Dizziness (780.4), Asthma,Intrinsic (493.11), Osteoporosis (733.00), WWV-Bare [facility] Office Visit On: 27-May-2010 10:50 Encounter Diagnosis: Abnormal EKG (794.31), Asthma,Intrinsic (493.11) End: 27-May-2010 11:04 [facility] Office Visit On: 27-May-2010 9:45 Encounter Reason: Follow up for chronic medical issues - The patient does not feel well and has decreased energy level. Patient has been compliant with instructions. Current medication use: experiencing side effects (ind End: 27-May-2010 10:24 eral making her feel yucky in the am). Patient sleeps 7 hours per night. Impact of disease: emotional impact-moderate. Nutrition: balanced diet and supplemental vitamins. The medical issues the patien t is following up for include cardiac issues ,depression (anxiety) ,high blood pressure ,high cholesterol ,osteoarthritis ,osteoporosis/osteopenia and other (tremor, IBS). Encounter Diagnosis: Rash (782.1), SYMPTOM, WHEEZING (786.07), Colon Polyps, History of (V12.72), Allergic Rhinitis(477.9), Osteoarthritis (715.96), Diarrhea (787.91), Osteopenia (733.90), Hypercholesterolemia (272.0), Hypertension 401.1 (Renamed from Hypertension (401.0)), Tremors (781.0), Mitral Valve Zcvqasmifbogo498.6), WWV-Bare, Shoulder pain (719.41), Headache (784.0), Irritable bowel syndrome (564.1), Bradycardia (427.89), Urinary retention (788.20), Anxiety (300.00), Sleep disorder (780.50), SOB (786.05), Dizziness (780.4), Chronic cough (786.2) [facility] Office Visit On: 05-May-2010 8:16 Encounter Reason: Rash - The onset of the rash has been sudden and has been occurring in a persistent pattern for 1 days. The course has been increasing. The rash is characterized as red and raised above the skin. The ra End: 05-May-2010 8:39 sh was first seen on the face (AD). It spread to the neck. There has been associated fatigue ,itching and pain (burning). Encounter Diagnosis: Rash (782.1) [facility] Office Visit On: 22-Mar-2010 12:05 Encounter Reason: Cold Symptoms - Symptoms include nasal congestion ,runny nose ,sore throat ,hoarseness ,productive cough (clear) and headache, while symptoms do not include facial pressure or facial pain. Onset was marco antonio End: 22-Mar-2010 21:58 den 1 week(s) ago. There is no known event that preceded symptom onset. The symptoms occur constantly. The patient describes this as moderate in severity and improving. Symptoms are relieved by non-pres cription cold medications (coricedan hbp and tylenol). Associated symptoms include wheezing and fever, while associated symptoms do not include plugged ear(s) ,ear pain ,shortness of breath ,nausea ,vom iting ,diarrhea or chills. Note for Cold Symptoms: alot of tristin- little wheeze-- she is taking coricidanEncounter Diagnosis: SYMPTOM, WHEEZING (786.07), ACUTE PHARYNGITIS (462.) [facility] Office Visit On: 18-Feb-2010 9:50 Encounter Reason: Follow up acute care visit - The patient feeling better since last seen and improving. Patient has been compliant with instructions. Current medication use: no side effects ,compliant with dosing regime End: 18-Feb-2010 10:30 n and considered effective by patient. Patient sleeps 7 hours per night. Impact of disease: emotional impact-mild. Nutrition: balanced diet and supplemental vitamins. The medical issues the patient is f ollowing up for include other (sinus infection). Encounter Diagnosis: Tremors (781.0), Osteopenia (733.90) [facility] Office Visit On: 04-Feb-2010 7:25 Encounter Reason: Follow up, Diagnostic Procedure Results - Diagnostic tests include other (Bone density). Date: (01-14-10). Follow up visit with no current symptoms. Past medical history includes emotional problems ,hype End: 04-Feb-2010 8:02 rtension and other (IBS, OA, osteopenia, MVR, allergic rhinitis, headache). Encounter Diagnosis: Osteopenia (733.90), Hypercholesterolemia (272.0), Tremors (781.0), Acute sinusitis, unspecified (461.9) [facility] Office Visit On: 01-Jan-2010 9:11 Encounter Reason: Follow up for chronic medical issues - The patient feels well with minor complaints ,has good energy level and is sleeping well. Patient has been compliant with instructions. Current medication use: no End: 01-Jan-2010 9:56 side effects ,compliant with dosing regimen and considered effective by patient. Patient sleeps 7 hours per night. Impact of disease: emotional impact-mild. Nutrition: balanced diet and supplemental vit amins. The medical issues the patient is following up for include cardiac issues ,depression ,high blood pressure ,high cholesterol ,osteoarthritis ,osteoporosis/osteopenia and other (IBS, shoulder pain). Encounter Diagnosis: Diarrhea (787.91), Osteoarthritis (715.96), Allergic Rhinitis(477.9), Hypertension 401.1 (Renamed from Hypertension (401.0)), Hypercholesterolemia (272.0), Osteopenia (733.90), Colon Polyps, History of (V12.72), Shoulder pain (719.41), Sleep disorder (780.50), Anxiety (300.00), Tremors (781.0), Urinary retention (788.20), Bradycardia (427.89), Irritable bowel syndrome (564.1), Mitral Valve Hwsjftydqmyog491.6), Headache (784.0), WWV-Bare [facility] Office Visit On: 24-Jun-2009 11:15 Encounter Reason: UTI - The urinary symptoms are described as urgency. The symptoms have been occurring for hours (yesterday for several hours) and have been decreasing. The urine is described as yellow. The symptoms hav End: 24-Jun-2009 11:47 e been associated with fever and abdominal pain. The patient has been using pyridium/uristat (AZO). Encounter Diagnosis: Allergic Rhinitis(477.9), Viral syndrome (079.99) [facility] Office Visit On: 23-Jun-2009 8:40 Encounter Reason: Follow up for chronic medical issues - The patient feels well with minor complaints ,has good energy level and is sleeping well. Patient has been compliant with instructions. Current medication use: no End: 23-Jun-2009 9:19 side effects ,compliant with dosing regimen and considered effective by patient. Patient sleeps 7 hours per night. Impact of disease: emotional impact-mild. Nutrition: balanced diet and supplemental vit amins. The medical issues the patient is following up for include cardiac issues ,depression ,high blood pressure ,high cholesterol ,osteoarthritis ,osteoporosis/osteopenia and other (IBS). Encounter Diagnosis: Diarrhea (787.91), Colon Polyps, History of (V12.72), Shoulder pain (719.41), Hypertension (401.0), Hypercholesterolemia (272.0), Osteoarthritis (715.96), Osteopenia (733.90), Allergic Rhinitis(477.9), Sleep disorder (780.50), Anxiety (300.00), Tremors (781.0), Urinary retention (788.20), SOB (786.05), Bradycardia (427.89), Irritable bowel syndrome (564.1), Mitral Valve Jwqiqaoihtddd089.6), Other specified pruritic conditions (698.8), Headache (784.0) [facility] Historical Summary On: 17-Jun-2009 21:47 [facility] End: 17-Jun-2009 21:52 Office Visit On: 09-Apr-2009 10:16 Encounter Reason: Injections - The medication the patient is here to receive is other (rt. shoulder injection 1cc kenalog, 2 cc marcaine ). Encounter Diagnosis: Shoulder pain (719.41) End: 09-Apr-2009 10:29 [facility] Office Visit On: 10-Feb-2009 8:22 Encounter Reason: Follow up acute care visit - The patient feeling better since last seen and improving. Patient has been compliant with instructions. Current medication use: no side effects ,compliant with dosing regime End: 10-Feb-2009 8:58 n and considered effective by patient. Patient sleeps 7 hours per night. Impact of disease: emotional impact-mild. Nutrition: balanced diet and supplemental vitamins. The medical issues the patient is f ollowing up for include other (urinary retention ). Encounter Diagnosis: Urinary retention (788.20), Shoulder pain (719.41), Sleep disorder (780.50), Anxiety (300.00), Diarrhea (787.91), Tremors (781.0) [facility] Office Visit On: 13-Jan-2009 7:47 Encounter Diagnosis: Urinary retention (788.20) End: 13-Jan-2009 8:09 [facility] Annotation/Addendum On: 07-Jan-2009 8:27 Encounter Diagnosis: Shoulder pain (719.41) End: 07-Jan-2009 8:29 [facility] Office Visit On: 07-Jan-2009 8:02 Encounter Reason: Follow up, Diagnostic Procedure Results - Diagnostic tests include other (holter monitor ). Date: (12-09-08 ). Follow up visit with no current symptoms. Past medical history includes hypertension and oth End: 07-Jan-2009 8:25 er (high cholesterol, OA, sleep diorder, IBS ). Encounter Diagnosis: Sleep disorder (780.50), Anxiety (300.00), SOB (786.05) [facility] Annotation/Addendum On: 09-Dec-2008 9:24 Encounter Diagnosis: Bradycardia (427.89) End: 09-Dec-2008 9:27 [facility] Office Visit On: 09-Dec-2008 8:18 Encounter Reason: Follow up for chronic medical issues - The patient does not feel well ,has decreased energy level and is sleeping poorly. Patient has been compliant with instructions. Current medication use: no side ef End: 09-Dec-2008 9:03 fects ,compliant with dosing regimen and considered effective by patient. Patient sleeps 5 hours per night. Impact of disease: emotional impact-mild. Nutrition: balanced diet and supplemental vitamins. The medical issues the patient is following up for include high blood pressure ,osteoarthritis ,osteoporosis/osteopenia and other (allergic rhinitis ). Encounter Diagnosis: URINARY TRACT INFECTION, NOS (599.0), Hypertension 401.1 (Renamed from Hypertension (401.0)), Hypercholesterolemia (272.0), Allergic Rhinitis(477.9), Osteoarthritis (715.96), WWV-Bare, Sciatica (724.3), Shoulder pain (719.41), Chest pain (786.59), Dysuria (788.1), Low back pain (724.2), Mitral Valve Ifcetsesmerag843.6), Osteopenia (733.90), Diarrhea (787.91), Sleep disorder (780.50), SOB (786.05), Irritable bowel syndrome (564.1), oncomycosis [facility] Office Visit On: 29-May-2008 7:51 Encounter Reason: Follow up for chronic medical issues - The patient feels well with minor complaints ,has decreased energy level and is sleeping well. Patient has been compliant with instructions. Current medication use End: 29-May-2008 8:28 : no side effects ,compliant with dosing regimen and considered effective by patient. Patient sleeps 7 hours per night. Impact of disease: emotional impact-mild. Nutrition: balanced diet. The medical is sues the patient is following up for include cardiac issues ,high blood pressure ,high cholesterol ,osteoarthritis ,osteoporosis/osteopenia and other (allergic rhinitis ). Encounter Diagnosis: URINARY TRACT INFECTION, NOS (599.0), Allergic Rhinitis(477.9), ACUTE PHARYNGITIS (462.), Hypercholesterolemia (272.0), Diarrhea (787.91), Hypertension 401.1 (Renamed from Hypertension (401.0)), Osteoarthritis (715.96), Osteopenia (733.90), Acute sinusitis, unspecified (461.9), Mitral Valve Jzwxgwfjkmtdr949.6), WWV-Bare, Low back pain (724.2), Sciatica (724.3), Dysuria (788.1), Chest pain (786.59), Shoulder pain (719.41) [facility] Office Visit On: 29-Apr-2008 11:31 Encounter Reason: Follow up acute care visit - The patient worsening. Patient has been compliant with instructions. Current medication use: no side effects and compliant with dosing regimen. Patient sleeps 7 hours per ni End: 29-Apr-2008 12:15 ght. Impact of disease: emotional impact-mild. Nutrition: balanced diet. The medical issues the patient is following up for include other (acute pharyngitis ). Encounter Diagnosis: Allergic Rhinitis(477.9), ACUTE PHARYNGITIS (462.) [facility] Office Visit On: 07-Apr-2008 9:27 Encounter Reason: Follow up acute care visit - The patient feeling better since last seen ,has decreased energy level and improving. Patient has been compliant with instructions. Current medication use: no side effects , End: 07-Apr-2008 10:06 compliant with dosing regimen and considered effective by patient. Patient sleeps 7 (broken- 1-2 X to use restroom ) hours per night. Impact of disease: no overall impact. Nutrition: balanced diet. The medical issues the patient is following up for include All identified problems below and other (sinusitis ). Encounter Diagnosis: ACUTE PHARYNGITIS (462.) [facility] Office Visit On: 13-Mar-2008 8:40 Encounter Reason: Sinusitis/ - The duration of the symptoms are 1 week The course has been worsening. The sinusitis/ has no relieving factors. Associated features include The symptoms have been associated with cough ,ear End: 13-Mar-2008 9:13 pain (R-pressure ) ,nasal discharge/stuffy nose (clear) ,sinus pain ,sore throat and teeth pain (R Maxilla ), while the symptoms have not been associated with purulent discharge from ear ,purulent nasa l discharge ,red eyes or swollen lymph glands. No previous evaluations were reported. none reported. Note for Sinusitis/: [place] heat over bodyEncounter Diagnosis: ACUTE PHARYNGITIS (462.), Acute sinusitis, unspecified (461.9) [facility] Office Visit On: 29-Nov-2007 7:57 Encounter Reason: Follow up for chronic medical issues - The patient feels well with minor complaints ,has good energy level and is sleeping well. Patient has been compliant with instructions. Current medication use: no End: 29-Nov-2007 8:25 side effects ,compliant with dosing regimen and considered effective by patient. Patient sleeps 7 hours per night. Impact of disease: emotional impact-mild. Nutrition: balanced diet and supplemental vit amins. The medical issues the patient is following up for include cardiac issues ,high blood pressure ,high cholesterol ,osteoarthritis and osteoporosis/osteopenia. Note for Follow up for chronic medical issues: watching diet and losing Encounter Diagnosis: Hypertension 401.1 (Renamed from Hypertension (401.0)), Hypercholesterolemia (272.0), Osteoarthritis (715.96), Allergic Rhinitis(477.9), Mitral Valve Jikzxxeowqigi774.6), Low back pain (724.2), Sciatica (724.3), WWV-Bare [facility] Office Visit On: 12-Oct-2007 10:18 Encounter Diagnosis: URINARY TRACT INFECTION, NOS (599.0) End: 12-Oct-2007 13:08 [facility] Office Visit On: 26-Sep-2007 10:48 Encounter Reason: Dysuria - The onset of the dysuria has been gradual and has been occurring in an intermittent pattern for 4 days. The course has been constant. The dysuria is described as severe. The quality of the wiley End: 26-Sep-2007 11:05 n is described as a burning sensation ,sharp and a discomfort The symptoms have been associated with frequency, while the symptoms have not been associated with hematuria. Note for Dysuria: no feverEncounter Diagnosis: Dysuria (788.1) [facility] Office Visit On: 29-May-2007 8:03 Encounter Reason: Follow up for chronic medical issues - The patient feels well with no complaints ,has good energy level and is sleeping well. Patient has been compliant with instructions. Current medication use: no lauro End: 29-May-2007 8:30 e effects ,compliant with dosing regimen and considered effective by patient. Patient sleeps 7 hours per night. Impact of disease: no overall impact. Nutrition: balanced diet and supplemental vitamins. The medical issues the patient is following up for include cardiac issues ,high blood pressure ,high cholesterol ,osteoarthritis and osteoporosis/osteopenia. Note for Follow up for chronic medical issues: drainage nasal and some cough from it Encounter Diagnosis: Other ankle sprain (845.09), Hypertension (401.0), Hypercholesterolemia (272.0), Mitral Valve Skppsawszvnbf047.6), Sciatica (724.3), Allergic Rhinitis(477.9), WWV-Bare, Low back pain (724.2), Osteopenia (733.90), Osteoarthritis (715.96) [facility] Office Visit On: 29-Jan-2007 9:44 Encounter Reason: Physical female exam - Last seen between 6-12 months ago. General health: feels well with minor complaints ,has decreased energy level and is sleeping poorly. The patient's appetite is normal. Nutrition End: 29-Jan-2007 10:17 : normal/adequate. Exercises 2 days per week. Sleeps on average 5 hours per night. Normal bowel and bladder habits. Safety measures include appropriate use of safety belts and home smoke detectors. Ther e are no current emotional problems. screening, colonoscopy (2004) ,screening, mammography (2005) and screening, Pap smear (hysterectomy ). Encounter Diagnosis: Allergic Rhinitis(477.9), Other ankle sprain (845.09), Hypertension (401.0), Diarrhea (787.91), Osteoarthritis (715.96), Hypercholesterolemia (272.0), Osteopenia (733.90), Mitral Valve Frfqnnomgpics335.6), WWV-Bare, Sciatica (724.3) [facility] Refill Request On: 22-Jan-2007 9:32 [facility] End: 22-Jan-2007 9:33 Phone Encounter On: 20-Sep-2006 10:43 Encounter Diagnosis: Unspecified Diagnosis End: 20-Sep-2006 10:43 [facility] Office Visit On: 28-Jun-2006 8:48 Encounter Reason: Ankle Pain - The onset of the pain has been gradual and has been occurring in an intermittent pattern for 1 months. The course has been gradually worsening. The pain is moderate. The pain is described a End: 28-Jun-2006 9:06 s being located in the entire ankle (Left). The pain is aggravated by physical activity and prolonged standing. Relieving factors include medication (Tylenol). Associated features include: pain in midfo ot, but not muscle weakness ,instability ,popping/crepitus ,warmth ,erythema ,fever or chills. 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
--- OUTSIDE RECORDS SUMMARY | 2018-10-28 14:04 | XMS RPT_ITS | Continuity of Care Document ---
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 MRI done and went to [facility]. 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 wheezing is better. echo, [...] qd (137 MCG/SPRAY) Active CALCIUM + D, [id number]-VBTT (Oral Tablet) 1 qd for 0 days [...] Quantity: 30 {Tablet} Refills: 0 Ordered:19-Dec-2017 Long COMBINATION WORKER, Ariana L Start : 15-Sep-2017 End : [...] : 10-Nov-2017 End : 19-Dec-2017 Inactive ZOSTAVAX, 03933ZVO/0.65ML (Subcutaneous Solution Reconstituted) 1 For Solution once [...] days Quantity: 30 {Tablet} Refills: 6 Ordered:15-Sep-2015 George Bueno MD Start : 15-Sep-2015 End : 15-Sep-2015 Discontinued Creon 21903 UNIT Oral Capsule Delayed Release Particles 2 [...] good [facility] Status: Inactive as of 19-Mar-2015 Other [...] Result: Comments: See Note; NOTES: [facility] [address] [place] [address] OFFICE VISIT Date of Service: 03/31/18 MR#: [id number] Acct: [id number] Name: GAYATRI NAQIV Rep #: [id number] : 1935 Provider: RHODA Cisse Age/Sex: 82/F [...] Medications New: nitrofurantoin monohyd/m-cryst 100 mg (Macrobid) shalse126 mg PO Q12H 7 days UTI N39.0 [...] Visit Report Result: Comments: See Note; NOTES: [facility] [facility] [address] [address] [place] [address] OFFICE VISIT Date of Service: 02/28/18 MR#: [id number] Acct: [id number] Name: GAYATRI NAQVI Rep #: [id number] : 1935 Provider: Romel Silverio MD Age/Sex: 82/F Location: [facility] Status: Signed HPI HPI Details: GAYATRI NAQVI, [...] Signature: Date (if applicable) CC: Nguyen Santana ROTOR WINDER; Dayna Byrne MD 09-Feb-2018 Urgent Care Visit Report Result: Comments: See Note; NOTES: [facility] [address] [place] [address] OFFICE VISIT Date of Service: 02/09/18 MR#: [id number] Acct: [id number] Name: GAYARTI NAQVI Rep #: [id number] : 1935 Provider: Anjel DUONG Age/Sex: 82/F [...] Result: Comments: See Note; NOTES: [facility] [address] [place] [address] OFFICE VISIT Date of Service: 01/26/18 MR#: [id number] Acct: [id number] Name: GAYATRI NAQVI Rep #: [id number] : 1935 Provider: Anjle DUONG Age/Sex: 82/F [facility] [...] changes Exam Const General: cooperative, healthy appearing [facility] Head: normal to inspection Ears: hearing grossly [...] the above. This note was generated with SpotterRFation software. It may contain incorrect words, spelling, [...] Only (Routine) Result: Comments: See Note; NOTES: [facility] Imaging Services [address] [place] [address] Lower Ext Joint Only (Routine) MR#: [id number] Acct: [id number] Name: GAYATRI NAQVI Rep # : [id number] : 1935 F 81 From: Gianluca Camarena MD PCP: Nguyen Santana Status: REG CLI Study: Lower Ext Joint Only (Routine) Date of Exam: 07/13/17 Exam# [id number] Ordering Dr: Nguyen Santana STUDY: MRI RIGHT [...] , Service support , CC: Nguyen Santana Environmental Research Scientist: Signed 07-Jul-2017 PT D/C Summary (1) Result: Comments: See Note; NOTES: [facility] [address] [place] [address]. [address] [place] [address] Fax REHABILITATION SERVICES DISCHAR GE SUMMARY MR#: [id number] Acct: [id number] Name: GAYATRI NAQVI Rep #: [id number] : 1935 81 From: Levon Jay DPT, OCS, CSCS Referring DrLizzy: Nguyen Santana Status: REG RCR Insurance: [employer] MEDICARE HP - PT D/C Summary [...] degeneratwed medial knee. MRI is approp. Medial needle punch operator brace may be approp after MRI if other options not available(injection, Ortho) If there are questions or concerns regarding this patient's physical therapy, please feel free to call me at [phone]. Thank you for the referral of this patient. Sincerely, Levon Jay DPT, DORA <Electronically signed by Levon Jay DPT, PITO, CSCS> 07/07/17 0642 CC: Nguyen Santana EBG Signed 21-Jun-2017 Inital Evaluation (1) - PT Result: Comments: See Note; NOTES: [facility] [address] [place] [address]. [address] [place] [address] Fax REHABILITATION SERVICES INITIAL EVALUATION MR#: [id number] Acct: [id number] Name: GAYATRI NAQVI Rep #: [id number] [...] Discharge Instruction Result: Comments: See Note; NOTES: [facility] Medical Records Department [address] [place] [address] Discharge Instruction 06/06/17 2317 MR#: [id number] Acct: [id number] Name: MONET NAQVI Rep #: [id number] : 1935 81 From: Po Herrera MD PCP: Nguyen Santana Status: REG ER ED Disposition - Plan for ED Patient: Chief Complaint: Lower Extremity Injury Instructions: ED Kne e Pain UKO Prescriptions: Oxycodone HCl/Acetaminophen [Percocet 5/325] 1 - 2 tablet PO Q4H PRN PRN #8 tablet PRN Reason: Pain Referrals: Nguyen Snatana [Primary Care Provider] - What to do if you have Pr oblems For any increased pain, shortness of breath, bleeding, nausea or vomiting, chest pain, or any unexpected problems, contact your Primary Care Provider. Call [facility] ([phone]) or rep ort to the closest Emergency Room. Call 911 if necessary. 06/06/172317 <Electronically signed by Po Herrera MD> Date Po Herrera MD Cosigner Signature (If Indicated): Date CC: Nguyen Santana 06-Jun-2017 Emergency Department Summary Result: Comments: See Note; NOTES: [facility] Medical Records Department [address] [place] [address] Emergency Department Summary 06/06/172311 MR#: [id number] Acct: [id number] Name: GAYATRI NAQVI Rep #: [id number] : 1935 81 From: Po Herrera MD [...] Primary Care Provider. Call Doctors Regist [place] ([phone]) or report to the closest Emergency Room. Call 911 if necessary. 06/06/17 2317 <Electronically signed by Po Herrera MD> Date Po Herrera MD Cosigner Signature (If Indicated): Date CC: Nguyen Brittanyadrien 06-Jun-2017 Knee 4 or More Views Result: Comments: See Note; NOTES: [facility] Imaging Services [address] [place] [address] Knee 4 or More Views MR#: [id number] Acct: [id number] Name: DRISSGAYATRI Rep #: [id number] : 1935 F 81 From: Stephanie Diaz MD PCP: Nguyen Santana Status: REG ER Study: Knee 4 or More Views Date of Exam: 06/06/17 Exam# [id number] Ordering Dr: Po Herrera MD STUDY: X-RAY [...] Stephanie Diaz MD at 23:01 EDT Tel [phone], Service support , CC: Nguyen Santana; Po Herrera MD Environmental Research Scientist: Signed 06-Jun-2017 Liver Result: Comments: See Note; NOTES: [facility] Imaging Services [address] [place] [address] Liver MR#: [id number] Acct: [id number] Name: GAYATRI NAQVI Rep #: [id number] : [birth year] F 81 From: Rogelio Kumar MD PCP: Nguyen Santana Status: REG CLI Study: Liver Date of Exam: 06/06/17 Exam# [id number] Ordering Dr: Nguyen Santana STUDY: ABDOMINAL ULTRASOUND [...] Kumar MD at 11:47 EDT Tel [phone], Service support , CC: Nguyen Santana Environmental Research Scientist: Signed 27-Mar-2017 Echocardiogram Complete Result: Comments: See Note; NOTES: [facility] Cardiovascular Services [address] [place] [address] Echo Complete 03/24/17 08 MR#: [id number] Acct: [id number] Name: GAYATRI NAQVI ep #: [id number] : 1935 81 From: Romel Silverio MD Attending Dr: Romel Silverio MD Status: REG I Ordering Dr: Romel Silverio MD Date: 03/24/17 Location: [facility] Sex: F C Admitted: Reason For Study: [...] Dictated: 03/24/17 0 822 Date Transcribed: 03/24/171832 Environmental Research Scientist: Signed 24-Mar-2017 Nuclear Stress Test - Treadmil Result: Comments: See Note; NOTES: [facility] Imaging Services [address] [place], [place] [address] [place] [address] Howardge[address] 4d Nuclear Stress Test - Treadmil MR#: [id number] Acct: [id number] Name: UJLIUS NAQVI Rep #: [id number] : 1935 81 From: Romel Silverio MD [...] 71%. Romel Silverio MD T: NTS JOB: [id number] 03/25/17 0927 <Electronically signed by Romel Silverio MD> Date Romel Silverio MD CC: Nguyen Santana; Romel Silverio MD Date Dictated: 03/24/17 1146 Date Transcribed: 03/24/17 1146 Environmental Research Scientist: Signed 03-Mar-2017 Chest PA and Lateral Result: Comments: See Note; NOTES: [facility] Imaging Services [address] [place] [address] Verdana 4d Chest PA and Lateral MR#: [id number] Acct: [id number] Name: GAYATRI NAQVI Rep #: [id number] : 1935 F 81 From: Rogelio Kumar MD PCP: Nguyen Santana Status: REG CLI Study: Chest PA and Lateral Date of Exam: 03/03/17 Exam# [id number] Ordering Dr: Romel Silverio MD STUDY : [...] Kumar MD at 13:42 EDT Tel [phone], Service support , CC: Nguyen Santana; Romel Silverio MD Environmental Research Scientist: Signed 12-Dec-2016 Abdomen/Pelvis without Cont Result: Comments: See Note; NOTES: [facility] Imaging Services [address] [place] [address] Verdana 4d Abdomen/Pelvis without Cont MR#: [id number] Acct: [id number] Name: GAYATRI NAQVI Rep #: [id number] : 1935 F 81 From: Philipp Moody MD PCP: Nguyen Santana Status: REG CLI Study: Abdomen/Pelvis without Cont Date of Exam: 12/12/16 Exam# [id number] Ordering Dr: Nguyen Santana JULIANN DY: CT [...] of the osseous structures. ORD ER #: [id number] CT/Abdomen/Pelvis without Cont IMPRESSION: Fatty liver. There are multiple colonic diverticula consistent with diverticulosis. 21mm hypodense lesion in the inferior right lobe of the l iver. This is incompletely evaluated and on contrast enhanced study. Other findings as above. Electronically Signed: Philipp Moody MD at 22:28 EDT , Service support , CC: Nguyen Santana Environmental Research Scientist: Signed 22-Sep-2016 Upper Ext Joint Only(Routine) Result: Comments: See Note; NOTES: [facility] Imaging Services [address] [place] [address] Verda 4d Upper Ext Joint Only(Routine) MR#: [id number] Acct: [id number] Name: BERNICE NAQVI JOSEPH Briones Rep #: [id number] : 1935 F 80 From: Emmanuel Guido MD PCP: Nguyen Santana Status: REG CLI Study: Upper Ext Joint Only(Routine) Date of Exam: 09/22/16 Exam# [id number] Ordering Dr: Adilene Byrd DO STUDY: MRI [...] MD at 17:06 EST , Service support [phone], CC: Nguyen Santana; Sonia Byrd DO Environmental Research Scientist: Signed 08-Sep-2016 Shoulder min 2 Views Result: Comments: See Note; NOTES: [facility] Imaging Services [address] [place] [address] Verdana 4d Shoulder min 2 Views MR#: [id number] Acct: [id number] Name: GAYATRI NAQVI Rep #: [id number] : 1935 F 80 From: Emmanuel Guido MD PCP: Nguyen Santana Status: REG CLI Study: Shoulder min 2 Views Date of Exam: 09/08/16 Exam# [id number] Ordering Dr: Sonia Byrd DO STUDY: X-RA [...] at 11:28 EST Tel , Service support [phone], CC: Nguyen Santana; Sonia Byrd DO Environmental Research Scientist: Signed 06-Sep-2016 Dexa Bone Density Study (HP) Result: Comments: See Note; NOTES: [facility] Imaging Services [address] [place] [address] Verdana 4d Dexa Bone Density Study (HP) MR#: [id number] Acct: [id number] Name: LIDA NAQVI Rep #: [id number] : 1935 F 80 From: Rogelio Kumar MD PCP: Nguyen Santana Status: REG CLI Study: Dexa Bone Density Study (HP) Date of Exam: 09/06/16 Exam# [id number] Ordering Dr: Joi Santana STUDY: DUAL ENERGY [...] Rogelio Kumar MD at 13:43 EST Tel [phone], Service support [phone], CC: Nguyen Santana Environmental Research Scientist: Signed 24-May-2016 PT D/C Summary (1) Result: Comments: See Note; NOTES: [facility] Physical Therapy [facility] [address] [place] [address]. [address] [place] [address] Fax REHABILITATION SERVICES DISCHA RGE SUMMARY MR#: [id number] Acct: [id number] Name: GAYATRI NAQVI Rep #: [id number] [...] please feel free to call me at [phone]. Thank you for the referral of this patient. Sincerely, Norma Thomas <Electronically signed by Norma Thomas PT, MDT> 05/24/16 1348 CC: George Bueno MD ; Edson Franks DO TAPAN Signed 18-Apr-2016 Re-Evaluation - PT (1) Result: Comments: See Note; NOTES: [facility] Physical Therapy [facility] [address] [place] [address]. [address] [place], [place] [address] Fax [facility] / [facility] [address] PHYSICAL THERAPY MR#: [id number] Acct: [id number] Name: GAYATRI NAQVI Rep #: [id number] : 1935 80 From: Norma Thomas PT, [...] do not hesitate to contact me at [phone] by phone or if you have que stions or concerns regarding this new plan of care! Sincerely, Norma Thomas <Electronically signed by Norma Thomas PT, CertLizzy MDT> 04/18/16 1300 CC: George Bueno MD; Edson mead DO TAPAN Signed For Medicare only, by signing this I certify the plan of care. Physicians Signature Date 16-Mar-2016 Inital Evaluation (1) - PT Result: Comments: See Note; NOTES: [facility] Physical Therapy [facility] [address] [place] [address]. [address] [place] [address] Fax REHABILITATION RVICES INITIAL EVALUATION MR#: [id number] Acct: [id number] Name: GAYATRI NAQVI Rep #: [id number] : 1935 80 From: Norma Thomas PT, [...] to be FAXED BACK to us at [phone] for Medicare purposes. Please let me know if there are questions or concerns regarding this plan of care. Physician Signature:__ Date: <Electronically signed by Norma Thomas PT, Cert. MDT> 03/16/16 1323 CC: George Bueno MD; Edson Franks DO TAPAN Signed For Medicare only, by signing this I certify the plan of care. Physicians Signature Date 06-Mar-2016 Discharge Instruction Result: Comments: See Note; NOTES: [facility] Medical Records Department [address] [place] [address] Discharge Instruction 03/04/16 1919 MR#: [id number] Acct: [id number] Name: GAYATRI NAQVI Rep #: [id number] : 1935 80 From: Pastor Mccain MD [...] problems, contact your doctor. Call [facility] ([phone]) or report to the closest Emergency Room. Call 911 if necessary. 03/06/16 0704 <Electronical ly signed by Pastor Mccain MD> Date Pastor Mccain MD Cosigner Signature (If Indicated): Date CC: George Bueno MD 06-Mar-2016 Emergency Department Summary Result: Comments: See Note; NOTES: [facility] Records Department [address] [place] [address] Emergency Department Summary MR#: [id number] Acct: [id number] Name: GAYATRI NAQVI Rep #: [id number] : 1935 80 From: Pastor Mccain MD [...] Khloe [place] C: George Alba MD T: [facility] B: [id number] 03/06/16 0704 <Electronically signed by Pastor Mccain MD> Date Pastor Mccain MD Cosigner Signature (If Indicated): Date CC: George Bueno MD; Wesley Alba MD Date Dictated: 03/05/161121 Date Transcribed: 03/05/161121 Environmental Research Scientist: Signed 04-Mar-2016 Shoulder One View Result: Comments: See Note; NOTES: [facility] Imaging Services [address] [place] [address] Verdana 4d Shoulder One View MR#: [id number] Acct: [id number] Name: STEPHANIE NAQVI [place] Rep #: [id number] : 1935 F 80 From: Bernadette Daniel MD PCP: George Bueno MD Status: REG ER Study: Shoulder One View Date of Exam: 03/04/16 Exam# [id number] Ordering Dr: Pastor Mccain MD STUDY: X-RAY [...] MD at 19:00 EDT , Service support [phone], RAD/Shoulder One View IMPRESSION: Anatomic relocation of the left glenohume ral joint without fracture deformity. Electronically Signed: Bernadette Daniel MD at 19:00 EDT , Service support [phone], CC: George Xiao i, MD; Pastor Mccain MD Environmental Research Scientist: Signed 04-Mar-2016 Hip 2-3 Views with Pelvis Result: Comments: See Note; NOTES: [facility] Imaging Services [address] [place] [address] Verdana 4d Hip 2-3 Views with Pelvis MR#: [id number] Acct: [id number] Name: GAYATRI ROSA Rep #: [id number] : 1935 F 80 From: Bernadette Daniel MD PCP: George Bueno MD Status: REG ER Study: Hip 2-3 Views with Pelvis Date of Exam: 03/04/16 Exam# [id number] Ordering Dr: Pastor Mccain MD STUDY: X-RAY [...] MD at 17:17 EDT , Service support [phone], RAD/Hip 2-3 Views with Pelvis IMPRESSION: Normal x-ray examination of the pelvis and hip. Chad quarles Signed: Bernadette Daniel MD at 17:17 EDT , Service support [phone], CC: George Bueno MD; Pastor Mccain MD Environmental Research Scientist: Signed 04-Mar-2016 Shoulder min 2 Views Result: Comments: See Note; NOTES: [facility] Imaging Services [address] [place] [address] Verda 4d Shoulder min 2 Views MR#: [id number] Acct: [id number] Name: Mayra NAQVI Rep #: [id number] : 1935 F 80 From: Bernadette Daniel MD PCP: George Bueno MD Status: REG ER Study: Shoulder min 2 Views Date of Exam: 03/04/16 Exam# [id number] Ordering Dr: Zach Mccain MD STUDY: X-RAY [...] MD at 17:24 EDT , Service support [phone], Fax RAD/Shoulder min 2 Views IMPRESSION: Complete anterior dislocation of the left shoulder without identified fracture. Electronically Signed: Bernadette Daniel MD at 17:24 EDT , Service support [phone], CC: George Bueno MD; Pastor Mccain MD Environmental Research Scientist: Signed 04-Mar-2016 Wrist min 3 Views Result: Comments: See Note; NOTES: [facility] Imaging Services [address] [place] [address] Verdana 4d Wrist min 3 Views MR#: [id number] Acct: [id number] Name: STEPHANIE NAQVI Rep #: [id number] : 1935 F 80 From: Bernadette Daniel MD PCP: George Bueno MD Status: REG ER Study: Wrist min 3 Views Date of Exam: 03/04/16 Exam# [id number] Ordering Dr: Pastor Mccain MD STUDY: X-RAY [...] at 17:12 EDT , Se rvice support [phone], RAD/Wrist min 3 Views IMPRESSION: Negative for fracture or dislocation. Electronically Signed: Bernadette Daniel MD at 17:12 EDT , Service support [phone], CC: George Bueno MD; Pastor Mccain MD Environmental Research Scientist: Signed 24-Mar-2015 Upper Ext Joint Only(Routine) Result: Comments: See Note; NOTES: [facility] Imaging Services [address] [place] [address] MRI Report MR#: [id number] Acct: [id number] Name: GAYATRI NAQVI Rep #: [id number] : 1935 F 79 From: Gianluca Camarena MD PCP: George Bueno MD Status: REG CLI Study: Upper Ext Joint Only(Routine) Date of Exam: 03/24/15 Exam# [id number] Ordering Dr: George Bueno MD STUDY: MRI [...] at 15:58 EDT Tel , Service support [phone], CC: George Bueno MD Environmental Research Scientist: Signed 18-Oct-2014 Emergency Department Summary Result: Comments: See Note; NOTES: [facility] Medical Records Department [address] [place] [address] Emergency Department Summary MR#: [id number] Acct: [id number] Name: DRISSMayra Rep #: [id number] : 1935 78 From: Stephanie Andersen MD [...] injury. Stephanie Andersen MD T: NTS JOB: [id number] 10/18/14 160 6 <Electronically signed by Stephanie Andersen MD> Date Stephanie Andersen MD CC: George Bueno MD Date Dictated: 10/18/14 1050 Date Transcribed: 10/18/14 105 Environmental Research Scientist: Signed 18-Oct-2014 Discharge Instruction Result: Comments: See Note; NOTES: [facility] Medical Records Department [address] [place] [address] Discharge Instruction 10/18/14 1040 MR#: [id number] Acct: [id number] Name: GAYATRI NAQVI Rep #: [id number] : 1935 78 From: Stephanie Andersen MD [...] problems, contact your doctor. Call [facility] ( [phone]) or report to the closest Emergency Room. Call 911 if necessary . 10/18/14 1042 <Electronically signed by Stephanie Andersen MD> Date Stephanie Andersen MD Cosigner Signature (If Indicated): Date CC: George Bueno MD 18-Oct-2014 Brain/Head without Contrast Result: Comments: See Note; NOTES: [facility] Imaging Services [address] [place] [address] CAT Scan Report MR#: [id number] Acct: [id number] Name: GAYATRI NAQVI Rep #: [id number] : 1935 F 78 From: Jacklyn Vázquez MD PCP: George Bueno MD Status: REG ER Study: Brain/Head without Contrast Date of Exam: 10/18/14 Exam# [id number] Ordering Dr: Stephanie Andersen MD STUDY: C [...] MD at 10:34 EST , Service support [phone], CC: George Bueno MD; Stephanie Andersen MD Environmental Research Scientist: Signed 18-Oct-2014 Spine Cervical without Contras Result: Comments: See Note; NOTES: [facility] Imaging Services [address] [place] [address] CAT Scan Report MR#: [id number] Acct: [id number] Name: GAYATRI NAQVI Rep #: [id number] : 1935 F 78 From: Jacklyn Vázquez MD PCP: George Bueno MD Status: REG ER Study: Spine Cervical without Contras Date of Exam: 10/18/14 Exam# [id number] Ordering Dr: Stephanie Andersen MD STUDY : [...] MD at 10:45 EST , Service support [phone], CC: George Bueno MD ; Stephanie Andersen MD Environmental Research Scientist: Signed 13-Aug-2014 Bilat Scrn Digital & CAD Result: Comments: See Note; NOTES: [facility] Imaging Services [address] [place] [address] Breast Imaging Report MR#: [id number] Acct: [id number] Name: GAYATRI NAQVI Rep #: [id number] : 1935 F 78 From: Rogelio Kumar MD PCP: George Bueno MD Status: REG CLI Exam# [id number] Ordering Dr: George Bueno MD MAMMOGRAPHY - [...] Kumar MD at 10: 39 EST Tel [phone], Service support [phone], CC: George Bueno MD Environmental Research Scientist: Signed 13-Aug-2014 Dexa Bone Density Study (HP) Result: Comments: See Note; NOTES: [facility] Imaging Services [address] [place] [address] Bone Density Report MR#: [id number] Acct: [id number] Name: GAYATRI NAQVI Rep #: [id number] : 1935 F 78 From: Rogelio Kumar MD PCP: George Bueno MD Status: REG CLI Study: Dexa Bone Density Study () Date of Exam: 08/13/14 Exam# [id number] Ordering Dr: George Bueno MD STUDY: DUAL [...] Rogelio Kumar MD at 13:55 EST Tel [phone], Service support [phone], CC: George Bueno MD Environmental Research Scientist: Signed 12-Aug-2013 Bilat Scrn Digital & CAD Result: Comments: See Note; NOTES: [facility] Imaging Services [address] [place] [address] Breast Imaging Report MR#: [id number] Acct: [id number] Name: GAYATRI NAQVI Rep #: [id number] : 1935 F 77 From: Rogelio Kumar MD PCP: George Bueno MD Status: REG I Exam# [id number] Ordering Dr: George Bueno MD MAMMOGRAPHY - [...] August 12 013 at 11:28:57 AM EST [phone] Electronically Signed GP/GP If you are the referring physician and would like to consult with the radiologist who provided this interpretation, please contact Rogelio Kumar M.D. at [phone]. If this radiologist is unavailable, you will be directed to another radiologist to assist. If you are a patient with a question regarding this report, pleas e contact your referring physician directly. Professional Interpretation Provided By: [employer], Phone , These documents contain legally protected [...] of these documents. CC: George Bueno MD Environmental Research Scientist: Signed Immunization Name Dates Details Zoster (shingles) [...] Area Calculated 1.66 m2 :23 Comments: visual zcoedh-XR-37/40, OS-20/40, B/L-20/40 Temperature 98.1 f Comments: Method: [...] 0.00 cm Results Date Description Value Details 38-Njr-278484:57 Metabolic Panel, Comprehensive Comments: PATIENT NOT FASTINGPERFORMED BY: [facility] [id number] ([id number]) ALT (SGPT) 28 [iU]/L (Normal) Range: 0-32 [...] 8-27 Glucose 90 mg/dL (Normal) Range: 65-99 59-Rwl-645734:57 TSH (50779) Comments: PATIENT NOT FASTINGPERFORMED BY: [facility] [id number] TSH 1.450 {uIU/mL} (Normal) Range: 0.450-4.500 :57 CBC, Platelets & Auto Diff Comments: PATIENT NOT FASTINGPERFORMED BY: [facility] [id number] ([id number]) Immature Grans (Abs) 0.0 {x10E3/uL} (Normal) Range: [...] 3.77-5.28 WBC 7.8 {x10E3/uL} (Normal) Range: 3.4-10.8 57-Mrl-645535:00 URINE CELINE CULTURE-IDENTIFICATN Comments: PATIENT NOT FASTINGPERFORMED BY: [facility] VinelandPvjjgf2673 [facility] [id number] Information: SRC:BREANN (94606) Result 1 MUG (Normal) Comments: Mixed urogenital flora10,000-25,000 colony forming units per mL Urine Final report (Normal) Culture,Comprehensive 06-Rer-507961:21 Urinalysis, Office (63820) UA - LEUKOCYTE ESTERASE Negative (Normal) UA - NITRITE Negative (Normal) URINE UROBILINGN JOSÉ MIGUEL TIMED Normal mg/dL (Normal) UA - PROTEIN Negative mg/dL (Normal) UA - PH 7 (Normal) UA - BLOOD Negative (Normal) UA - SPECIFIC GRAVITY 1.010 (Normal) UA - KETONES Moderate mg/dL (Normal) UA - BILIRUBIN Negative (Normal) UA - GLUCOSE Negative (Normal) 72-Noi-01223:30 Culture, Urine Comments: [facility] Nyj[address]vsckx[address] [place], [place], [id number] CUUR See Note (Normal) Comments: Urine CultureORGANISM 1: Mixed Gram Positive OrganismsColony Count 11,000-25,000MIX CULTURE Mixed contaminants. Submit a new specimen if indicated. 29-Ijn-24477:30 Urinalysis, Complete Comments: How was Urine Obtained? [facility] Vytllkigty[address] [place], [place], [id number] MUCUS, URINE 0 SEEN {/hpf} (Normal) BACTERIA [...] (Normal) CLARITY Clear (Normal) COLOR Yellow (Normal) 96-Xae-751964:39 Culture, Urine Comments: [facility] Aflgdfdwcc[address] [place], [place], [phone] CUUR See Note (Normal) Comments: Urine CultureBelow infection level. ORGANISM 1: Mixed Gram Positive OrganismsColony Count 1000-10,000 62-Yyj-115833:39 Urinalysis, Complete Comments: How was Urine Obtained? 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 [place], [place], [id number] MUCUS, URINE 0 SEEN {/hpf} (Normal) BACTERIA [...] CLARITY Clear (Normal) COLOR Yellow (Normal) :05 VKPTF-AOZDJFQOJEZ-ICFSL (06560) Comments: PATIENT WAS FASTINGPERFORMED BY: [employer]line [facility] [id number] AFP, Serum, Tumor Marker 3.0 ng/mL (Normal) Range: 0.0-8.3 Comments: Kristi ECLIA methodology :05 TSH (THYROID STIMULATING Comments: PATIENT WAS FASTINGPERFORMED BY: [employer]line [facility] [id number] HORMONE) (38306) TSH 2.890 {uIU/mL} (Normal) Range: 0.450-4.500 76-Gxh-55451:05 LIPID PANEL (29616) Comments: PATIENT WAS FASTINGPERFORMED BY: [employer] [facility] [id number] LDL/HDL Ratio 1.9 {ratio_units} (Normal) Range: 0.0-3.2 [...] Auto Diff Comments: PATIENT WAS FASTINGPERFORMED BY: [employer] VinelandGswzua3888 [facility] [id number] (85560) Immature Grans (Abs) 0.0 {x10E3/uL} (Normal) Range: [...] 3.77-5.28 WBC 6.4 {x10E3/uL} (Normal) Range: 3.4-10.8 55-Dta-85676:05 Metabolic Panel, Comprehensive Comments: PATIENT WAS FASTINGPERFORMED BY: [facility] VinelandZgmdni1161 [facility] [id number] (01671) ALT (SGPT) 31 [iU]/L (Normal) Range: 0-32 [...] mg/dL (Normal) Range: 65-99 :49 Rapid Flu (28269 x 2) Influenza A Ag Negative (Normal) :59 THROAT CULTURE (71856) Comments: PATIENT NOT FASTINGPERFORMED BY: [employer] [facility] MichiganInvestingNoteWake [facility] [id number] Information: SRC:TH Result 1 RRF (Normal) Comments: Routine respiratory graeme Upper Respiratory Culture Final report (Normal) :54 Rapid Strep Test, Office (65673) Rapid Strep Test, Office Negative (Normal) 33-Nkh-476843:47 HgA1C , Office (48773) HgA1C , Office 5.8 % (Normal) Range: 4.6 - 7.1 :53 HEPATITIS PANEL (20715) Comments: today; PATIENT NOT FASTINGPERFORMED BY: [employer] [facility] [id number] Hep C Virus Ab <0.1 {s/co_ratio} (Normal) Range: 0.0-0.9 Comments: Negative: < 0.8 Indeterminate: 0.8 - 0.9 Positive: > 0.9 . The CDC recommends that a positive HCV antibody result be followed up with a HCV Nucleic Acid Amplification test (324093). Hep B Core Ab, IgM Negative (Normal) HBsAg Screen Negative (Normal) Hep A Ab, IgM Negative (Normal) :53 HEPATIC FUNCTION PANEL Comments: today; PATIENT NOT FASTINGPERFORMED BY: [facility]6370 [facility] [id number] (82533) ALT (SGPT) 29 [iU]/L (Normal) Range: 0-32 AST (SGOT) 30 [iU]/L (Normal) Range: 0-40 Alkaline Phosphatase, S 53 [iU]/L (Normal) Range: 39-117 Bilirubin, Direct 0.18 mg/dL (Normal) Range: 0.00-0.40 Bilirubin, Total 0.5 mg/dL (Normal) Range: 0.0-1.2 Albumin, Serum 4.7 g/dL (Normal) Range: 3.5-4.7 Protein, Total, Serum 6.5 g/dL (Normal) Range: 6.0-8.5 :53 TYXRF-MIAWFRPAWTQ-CHMLE (69345) Comments: today; PATIENT NOT FASTINGPERFORMED BY: [facility]6370 [facility] [id number] AFP, Serum, Tumor Marker 3.0 ng/mL (Normal) Range: 0.0-8.3 Comments: Kristi ECLIA methodology 86-Eaw-825102:55 Basic Metabolic Profile (BMP) Comments: Order Date: 03/01/17Order Info: 0667-1 - *BMPOrder Info: 3026-2 - *T4 (Total)Comments: Reason:Order Info: 3016-3 - *TSHComments: Reason:[facility] [address] [place], [place], [address] ; cardio GAP 6 (Normal) Range: 5-15 [...] 7-18 GLU 96 mg/dL (Normal) Range: 70-110 98-Fzj-787824:55 CBC-Complete Blood Cnt No Diff Comments: Order Date: 03/01/17Order Info: 93285-7 - *CBC without DiffComments: Reason:[facility] Qxbqyttuta[address] [place], [place], [phone] MPV 9.6 fL (Normal) Range: 6.2-12.0 PLT [...] 4.2-5.4 WBC 7.2 K/mm3 (Normal) Range: 4.4-11.0 06-Nqk-791031:55 T4 Total, Thyroxin Comments: Order Date: 03/01/17Order Info: 0667-1 - *BMPOrder Info: 3026-2 - *T4 (Total)Comments: Reason:Order Info: 3016-3 - *TSHComments: Reason:[facility] [address] [place], [address] T4 THYROXIN 9.3 ug/dL (Normal) Range: 4.8-13.9 09-Rqf-876595:55 Thyroid Stim Hormone (TSH) Comments: Order Date: 03/01/17Order Info: 0667-1 - *BMPOrder Info: 3026-2 - *T4 (Total)Comments: Reason:Order Info: 3016-3 - *TSHComments: Reason:[facility] Kwfcxdzpcb[address] [place], [place], [address] TSH 1.33 {uIU/mL} (Normal) Range: 0.358-3.74 9-Mgm-231407:55 Urinalysis, Office (33209) UA - LEUKOCYTE ESTERASE Negative (Normal) UA - NITRITE Negative (Normal) URINE UROBILINGN JOSÉ MIGUEL TIMED Normal mg/dL (Normal) UA - PROTEIN Negative mg/dL (Normal) UA - PH 7.5 (Normal) UA - BLOOD Negative (Normal) UA - SPECIFIC GRAVITY 1.020 (Normal) UA - KETONES Negative mg/dL (Normal) UA - BILIRUBIN Negative (Normal) UA - GLUCOSE Negative (Normal) 9-Vcg-354681:17 URINE CELINE CULTURE-JOSÉ MIGUEL COL Comments: PATIENT NOT FASTINGPERFORMED BY: [facility] Lspyhe8831 [facility] [id number] Information: SRC:UC COUNT (71872) Result 1 MUG (Normal) Comments: Mixed urogenital flora25,000-50,000 colony forming units per mL Urine Final report (Normal) Culture,Comprehensive 2-Drn-096577:05 Urinalysis, Office (67489) UA - LEUKOCYTE ESTERASE Small (Normal) UA - NITRITE Negative (Normal) URINE UROBILINGN JOSÉ MIGUEL TIMED Normal mg/dL (Normal) UA - PROTEIN Negative mg/dL (Normal) UA - PH 7 (Normal) UA - BLOOD Negative (Normal) UA - SPECIFIC GRAVITY 1.015 (Normal) UA - KETONES Small mg/dL (Normal) UA - BILIRUBIN Small (Normal) UA - GLUCOSE Negative (Normal) 07-Nov-20160:00 Culture, Urine Comments: [facility] Nrfnxxcsaw[address] [place], [address] CUUR See Note (Normal) Comments: Urine CultureCulture exhibits no growth. :45 TSH (94521) Comments: PATIENT WAS FASTINGPERFORMED BY: [facility]6370 [facility] [id number] TSH 2.950 {uIU/mL} (Normal) Range: 0.450-4.500 :45 Lipid Panel (98568) Comments: PATIENT WAS FASTINGPERFORMED BY: [facility]6370 [facility] [id number]; OV 08/23 LDL/HDL Ratio 2.2 {ratio_units} (Normal) [...] Auto Diff Comments: PATIENT WAS FASTINGPERFORMED BY: [facility]6370 [facility] [id number] (15690) Immature Grans (Abs) 0.0 {x10E3/uL} (Normal) Range: [...] 3.77-5.28 WBC 6.5 {x10E3/uL} (Normal) Range: 3.4-10.8 77-Bff-49936:45 Metabolic Panel, Comprehensive Comments: PATIENT WAS FASTINGPERFORMED BY: [facility]Co[facility] VinelandJadyph3533 [facility] [id number] (75733) ALT (SGPT) 30 [iU]/L (Normal) Range: 0-32 [...] Glucose, Serum 99 mg/dL (Normal) Range: 65-99 0-Teu-324660:00 MICROALBUMIN: CREATININE RATIO Comments: PATIENT WAS FASTINGPERFORMED BY: JumpSeat70 [facility] [id number] (52570) AND (76887) Microalb/Creat Ratio 9.2 {mg/g_creat} (Normal) Range: 0.0-30.0 Microalbumin, Urine 28.4 ug/mL (Normal) Creatinine, Urine 307.2 mg/dL (Normal) : METABOLIC PANEL, COMPREHENSIVE Comments: PATIENT WAS FASTINGPERFORMED BY: [employer]6370 [facility] [id number] (27566) ALT (SGPT) 23 [iU]/L (Normal) Range: 0-32 [...] Glucose, Serum 92 mg/dL (Normal) Range: 65-99 2-Slk-475879:00 LIPID PANEL (97761) Comments: PATIENT WAS FASTINGPERFORMED BY: [facility]angpuW[facility] [id number]; fu 6-[facility] with [facility] LDL/HDL Ratio 1.9 {ratio_units} (Normal) Range: 0.0-3.2 [...] Cholesterol, Total 211 mg/dL (Abnormal) Range: 100-199 0-Rjf-872338:00 CBC with auto diff Comments: PATIENT WAS FASTINGPERFORMED BY: [employer]6370 [facility] [id number] Information: [id number] (87035) Immature Grans (Abs) 0.0 {x10E3/uL} (Normal) Range: [...] 3.77-5.28 WBC 5.5 {x10E3/uL} (Normal) Range: 3.4-10.8 01-Ick-011094:55 Urinalysis, Office (71864) UA - LEUKOCYTE ESTERASE Small (Normal) UA [...] Examination Comments: PATIENT WAS FASTINGPERFORMED BY: [facility] Bxcblg9216 [facility] [id number] Bacteria Moderate (Abnormal) Mucus Threads Present (Normal) Epithelial Cells (non renal) >10 {/hpf} (Abnormal) Range: 0 - 10 RBC 0-2 {/hpf} (Normal) Range: 0 - 2 WBC 11-30 {/hpf} (Abnormal) Range: 0 - 5 :10 CALCIFIDIOL (49955) VIT D 25 Comments: PATIENT WAS FASTINGPERFORMED BY: [employer] Fzboym8901 [facility] [id number] Vitamin D, 25-Hydroxy 30.0 ng/mL (Normal) Range: 30.0-100.0 Comments: Vitamin D deficiency has been defined by the [place] ofNor[facility] Hospitalcine and an Endocrine Society practice guideline as alevel of serum 25-OH vitamin D less than 20 ng/mL (1,2).The Endocrine Society went on to further define vitamin Dinsufficiency as a level between 21 and 29 ng/mL (2).1. IOM ([place] of Medicine). 2010. Dietary reference intakes for calcium and D. [place]: The National Academies Press.2. Barb MF, Malachi BEYER, Bj LEAL, et al. Evaluation, treatment, and prevention of vitamin D deficiency: an Endocrine Society clinical practice guideline. JCEM. 2010; 96(7):1911-30. :10 URINALYSIS, W/ MICRO (08833) Comments: PATIENT WAS FASTINGPERFORMED BY: [employer]6370 [facility] [id number] Microscopic Examination See below: (Normal) Comments: Microscopic was indicated and was performed. Nitrite, Urine Negative (Normal) Urobilinogen,Semi-Qn 0.2 mg/dL (Normal) Range: 0.2-1.0 Bilirubin Negative (Normal) Occult Blood Negative (Normal) Ketones Negative (Normal) Glucose Negative (Normal) Protein 1+ (Abnormal) WBC Esterase 3+ (Abnormal) Appearance Cloudy (Abnormal) Urine-Color Yellow (Normal) pH 7.5 (Normal) Range: 5.0-7.5 Specific [place] 1.023 (Normal) Range: 1.005-1.030 :10 METABOLIC PANEL, COMPREHENSIVE Comments: PATIENT WAS FASTINGPERFORMED BY: [employer] Gzffkm8893 [facility] [id number] (25761) ALT (SGPT) 26 [iU]/L (Normal) Range: 0-32 [...] mg/dL (Normal) Range: 65-99 07-Sep-20159:10 LIPID PANEL (52692) Comments: PATIENT WAS FASTINGPERFORMED BY: [facility]CoIn[facility] VinelandOsbize3529 [facility] [id number] LDL/HDL Ratio 1.9 {ratio_units} (Normal) Range: 0.0-3.2 [...] auto diff Comments: PATIENT WAS FASTINGPERFORMED BY: WideAngle TechnologiesInspira Medical Center VinelandYikmtl6023 [facility] [id number] Information: [id number]; apt. 09-18-[birth year] (27246) Immature Grans (Abs) 0.0 {x10E3/uL} (Normal) Range: [...] With Differential/Platelet Comments: PATIENT WAS FASTINGPERFORMED BY: WideAngle TechnologiesInspira Medical Center VinelandSdcaem9262 [facility] [id number] Information: [id number] Immature Grans (Abs) 0.0 {x10E3/uL} (Normal) Range: [...] Panel (14) Comments: PATIENT WAS FASTINGPERFORMED BY: [facility]Co[facility] VinelandHkrrjq9222 [facility] [id number] ALT (SGPT) 24 [iU]/L (Normal) Range: 0-32 [...] With LDL/HDL Comments: PATIENT WAS FASTINGPERFORMED BY: [facility]CoIn[facility] VinelandYiiajt3784 [facility] [id number] Ratio LDL/HDL Ratio 2.1 {ratio_units} (Normal) Range: [...] Randm Ur Comments: PATIENT WAS FASTINGPERFORMED BY: [facility] Xrjmnd8868 [facility] [id number]; has fu 03-17-15 will review with her then Microalb/Creat Ratio 9.1 {mg/g_creat} Range: 0.0-30.0 (Normal) Microalbumin, Urine 25.2 ug/mL (Abnormal) Range: 0.0-17.0 Creatinine, Urine 278.2 mg/dL (Abnormal) Range: 15.0-278.0 Vitamin D, 25-Hydroxy 31.1 ng/mL (Normal) Comments: PATIENT WAS FASTINGPERFORMED BY: [facility]Ins[facility]6370 [facility] [id number] :27 Range: 30.0-100.0 Comments: Vitamin D deficiency has been defined by the [place] of[place]icine and an Endocrine Society practice guideline as alevel of serum 25-OH vitamin D less than 20 ng/mL (1,2).The Endocrine Society went on to further define vitamin Dinsufficiency as a level between 21 and 29 ng/mL (2).1. IOM ([place] of Medicine). 2010. Dietary reference intakes for calcium and D. [place]: The National Academies Press.2. Barb MF, Malachi [place], Bj LEAL, et al. Evaluation, treatment, and prevention of vitamin D deficiency: an Endocrine Society clinical practice guideline. JCEM. 2010; 96(7):1911-30. :35 Microscopic Examination Comments: PATIENT WAS FASTINGPERFORMED BY: LabSaint [facility] Hzfqur7150 [facility] [id number] Bacteria None seen (Normal) Mucus Threads Present (Normal) Crystal Type Calcium Oxalate (Normal) Crystals Present (Abnormal) Epithelial Cells (non renal) 0-10 {/hpf} (Normal) Range: 0 - 10 RBC 0-2 {/hpf} (Normal) Range: 0 - 2 WBC 0-5 {/hpf} (Normal) Range: 0 - 5 :06 Rapid Strep Test, Office (28011) Rapid Strep Test, Office Negative (Normal) :03 Rapid Flu (35534 x 2) Influenza A Ag neg (Normal) :35 URINALYSIS, W/ MICRO (30284) Comments: -; PATIENT WAS FASTINGPERFORMED BY: [employer]6370 [facility] [id number] Microscopic Examination See below: (Normal) Comments: Microscopic was indicated and was performed. Nitrite, Urine Negative (Normal) Urobilinogen,Semi-Qn 1.0 mg/dL (Normal) Range: 0.0-1.9 Bilirubin Negative (Normal) Occult Blood Negative (Normal) Ketones Trace (Abnormal) Glucose Negative (Normal) Protein 1+ (Abnormal) WBC Esterase Trace (Abnormal) Appearance Clear (Normal) Urine-Color Yellow (Normal) pH 6.5 (Normal) Range: 5.0-7.5 Specific [place] 1.029 (Normal) Range: 1.005-1.030 :35 CBC, Platelets & Auto Diff Comments: 09-14; PATIENT WAS FASTINGPERFORMED BY: [employer]6370 [facility] [id number] Information: [id number] (82249) Immature Grans (Abs) 0.2 {x10E3/uL} Range: 0.0-0.1 [...] Comprehensive Comments: 12-14; PATIENT WAS FASTINGPERFORMED BY: [facility]6370 [facility] [id number] (31682) ALT (SGPT) 16 [iU]/L (Normal) Range: 0-32 [...] mg/dL (Normal) Range: 65-99 08-Sep-20149:35 Lipid Panel (59534) Comments: 12-14; PATIENT WAS FASTINGPERFORMED BY: [employer]70 [facility] [id number] LDL/HDL Ratio 1.7 {ratio_units} (Normal) Range: 0.0-3.2 [...] Cholesterol, Total 215 mg/dL (Abnormal) Range: 100-199 50-Pue-962216:12 Metabolic Panel, Basic Comments: today; PATIENT NOT FASTINGPERFORMED BY: [employer]ango[employer]6370 [facility] [id number] Information: [id number],NURSE DRAW (69874) Calcium, Serum 10.6 mg/dL (Abnormal) Range: 8.6-10.2 [...] Comments: 4 months; PATIENT WAS FASTINGPERFORMED BY: JumpSeat70 [facility] [id number] Information: [id number] COMPREHENSIVE (12000) ALT (SGPT) 24 [iU]/L (Normal) Range: 0-32 [...] mg/dL (Normal) Range: 65-99 :06 LIPID PANEL (84891) Comments: 4 months; PATIENT WAS FASTINGPERFORMED BY: [employer]6370 [facility] [id number] LDL/HDL Ratio 2.0 {ratio_units} (Normal) Range: 0.0-3.2 LDL Cholesterol Calc 145 mg/dL (Abnormal) Range: 0-99 VLDL Cholesterol Thanh 22 mg/dL (Normal) Range: 5-40 HDL Cholesterol 71 mg/dL (Normal) Comments: According to ATP-III Guidelines, HDL-C >59 mg/dL is considered anegative risk factor for CHD. Triglycerides 111 mg/dL (Normal) Range: 0-149 Cholesterol, Total 238 mg/dL (Abnormal) Range: 100-199 :03 Potassium Serum (30971) Comments: today; PATIENT NOT FASTINGPERFORMED BY: [address] [id number] Information: [id number] Potassium, Serum 3.7 mmol/L (Normal) Range: 3.5-5.2 13-Vzb-133174:41 MICROALBUMIN: CREATININE Comments: PATIENT NOT FASTINGPERFORMED BY: WideAngle TechnologiesInspira Medical Center VinelandDwuyjh2490 [facility] [id number] Information: [id number] RATIO (01788) AND (23532) Microalb/Creat Ratio 6.9 {mg/g_creat} (Normal) Range: 0.0-30.0 Microalbumin, Urine 19.6 ug/mL (Abnormal) Range: 0.0-17.0 Creatinine, Urine 282.6 mg/dL (Abnormal) Range: 15.0-278.0 :57 METABOLIC PANEL, COMPREHENSIVE Comments: PATIENT WAS FASTINGPERFORMED BY: 3dimBrenda [place] 6275670 [facility] [id number] (85126) ALT (SGPT) 26 [iU]/L (Normal) Range: 0-32 [...] mg/dL (Normal) Range: 65-99 :57 LIPID PANEL (52791) Comments: PATIENT WAS FASTINGPERFORMED BY: [employer] [facility] [id number] LDL/HDL Ratio 1.7 {ratio_units} (Normal) Range: 0.0-3.2 [...] MANUAL DIFF Comments: PATIENT WAS FASTINGPERFORMED BY: [employer] VinelandHfqirx2760 [facility] [id number] Information: [id number] (86098) Immature Grans (Abs) 0.0 {x10E3/uL} (Normal) Range: [...] CREATININE RATIO Comments: PATIENT WAS FASTINGPERFORMED BY: LabCoInsp[facility] Medical Center VinelandEsudqw2531 [facility] [id number] (61484) AND (81732) Microalb/Creat Ratio 4.0 {mg/g_creat} (Normal) Range: 0.0-30.0 Microalbumin, Urine 8.3 ug/mL (Normal) Range: 0.0-17.0 Creatinine, Urine 206.4 mg/dL (Normal) Range: 15.0-278.0 :29 METABOLIC PANEL, COMPREHENSIVE Comments: PATIENT WAS FASTINGPERFORMED BY: [facility]CoInsp[facility] Center VinelandRknweg0619 [facility] [id number] (50807) ALT (SGPT) 22 [iU]/L (Normal) Range: 0-32 [...] Glucose, Serum 93 mg/dL (Normal) Range: 65-99 75-Bju-77826:29 LIPID PANEL (41418) Comments: PATIENT WAS FASTINGPERFORMED BY: LabCoInsp[facility] VinelandOdfaug1046 [facility] [id number] LDL/HDL Ratio 1.9 {ratio_units} (Normal) Range: 0.0-3.2 [...] DIFF Comments: PATIENT WAS FASTINGPERFORMED BY: LATA LabCoInsp[facility] VinelandCrttna9888 [facility] [id number] Information: [id number] (85275) Immature Grans (Abs) 0.0 {x10E3/uL} (Normal) Range: [...] Ambiguous Default Comments: PATIENT WAS FASTINGPERFORMED BY: LabCoInsp[facility] Center VinelandMxlwpp3170 [facility] [id number] Immature Grans (Abs) 0.0 {x10E3/uL} (Normal) Range: [...] PANEL, COMPREHENSIVE Comments: PATIENT WAS FASTINGPERFORMED BY: LabCoInsp[facility] VinelandIpgftr5652 [facility] [id number] (40989) ALT (SGPT) 22 [iU]/L (Normal) Range: 0-32 [...] mg/dL (Normal) Range: 65-99 :06 LIPID PANEL (66221) Comments: PATIENT WAS FASTINGPERFORMED BY: LabCoIn[facility] VinelandKlpomz7323 [facility] [id number] LDL/HDL Ratio 1.2 {ratio_units} (Normal) Range: 0.0-3.2 LDL Cholesterol Calc 95 mg/dL (Normal) Range: 0-99 VLDL Cholesterol Thanh 13 mg/dL (Normal) Range: 5-40 HDL Cholesterol 80 mg/dL (Normal) Comments: According to ATP-III Guidelines, HDL-C >59 mg/dL is considered anegative risk factor for CHD. Triglycerides 64 mg/dL (Normal) Range: 0-149 Cholesterol, Total 188 mg/dL (Normal) Range: 100-199 :59 Urinalysis, Office (79293) UA - BILIRUBIN Negative (Normal) UA - BLOOD Hemolyzed Trace (Normal) UA - GLUCOSE Negative (Normal) UA - KETONES Negative mg/dL (Normal) UA - LEUKOCYTE ESTERASE Negative (Normal) UA - NITRITE Negative (Normal) UA - PH 8.0 (Normal) UA - PROTEIN Negative mg/dL (Normal) UA - SPECIFIC GRAVITY 1.015 (Normal) URINE UROBILINGN JOSÉ MIGUEL TIMED Normal mg/dL (Normal) 32-Kvl-96566:11 DEXA BONE DENSITY STUDY () Radiology Report [...] Kumar M.D.March 29, 2012 at 8:59:04 AM [phone] Signed GP/GP If you are the referring physician and would like to consult with theradiologist who provided this interpretation, please contact Miracle Dale at . If this radiologist is unavailable,youwill be directed to another radiologist to assist. If you are a patient with a question r egarding this report, pleasecontactyour referring physician directly. Professional Interpretation Provided By: Swapsee, Phone , Dictated on 03/28/12 0813 by Taty masters MD,Vimalranscribed on 03/29/12 0904 by ITS IMPORTSign by Jake ALEXANDRE,Rogelio on 03/29/12904 Sign by: Rogelio Kumar MD 48-Qin-43566:00 BILAT SCRN DIGITAL & CAD Radiology Report [...] Kumar M.D.March 28, 2012 at 9:07:04 AM [phone] Signed GP/GP If you are the referring physician and would like to consult with theradiologist who provided this interpretation, please contact Miracle Dale at . If this radiologist is unavailable,youwill be directed to another radiologist to assist. If you are a patient with a question regarding this report, pleasecontactyour referring physician directly. Professional Interpretation Provided By: Swapsee, Phone , Dictated on 03/28/12 084 7 by Jake ALEXANDRE,Vimalranscribed on 03/28/12 1125 by ITS IMPORTSign by Rogelio Kumar MD on 03/28/12 1126 Sign by: Rogelio Kumar MD 19-Hye-18663:17 LIPID PANEL (45571) Comments: PATIENT NOT FASTINGPERFORMED BY: Cloudcam6370 [facility] [id number] LDL Cholesterol Calc 93 mg/dL (Normal) Range: 0-99 LDL/HDL Ratio 1.3 {ratio_units} (Normal) Range: 0.0-3.2 VLDL Cholesterol Thanh 22 mg/dL (Normal) Range: 5-40 HDL Cholesterol 73 mg/dL (Normal) Comments: According to ATP-III Guidelines, HDL-C >59 mg/dL is considered anegative risk factor for CHD. Triglycerides 112 mg/dL (Normal) Range: 0-149 Cholesterol, Total 188 mg/dL (Normal) Range: 100-199 78-Ago-95229:17 HEPATIC FUNCTION PANEL Comments: PATIENT NOT FASTINGPERFORMED BY: Cloudcam6370 [facility] IdeasW[facility] [id number] Information: ADD DRAW FEE [id number] ADD J0 2816 (08325) ALT (SGPT) 28 [iU]/L (Normal) Range: 0-40 AST (SGOT) 29 [iU]/L (Normal) Range: 0-40 Alkaline Phosphatase, S 54 [iU]/L (Normal) Range: 25-165 Bilirubin, Direct 0.20 mg/dL (Normal) Range: 0.00-0.40 Bilirubin, Total 0.7 mg/dL (Normal) Range: 0.0-1.2 Albumin, Serum 4.6 g/dL (Normal) Range: 3.5-4.8 Protein, Total, Serum 6.5 g/dL (Normal) Range: 6.0-8.5 31-Itx-81790:30 CBC WITH MANUAL DIFF Comments: PATIENT WAS FASTINGPERFORMED BY: LabCoInsp[facility] Center VinelandTetehs0744 [facility] [id number] Information: [id number] (30722) Immature Grans (Abs) 0.0 {x10E3/uL} (Normal) Range: [...] {x10E3/uL} (Normal) Range: 4.0-10.5 :30 LIPID PANEL (21185) Comments: PATIENT WAS FASTINGPERFORMED BY: LabPeople Operating TechnologyInspira Medical Center VinelandNxwabh0693 [facility] [id number]; OV 02/28/12 LDL/HDL Ratio 2.1 {ratio_units} (Normal) [...] PANEL, COMPREHENSIVE Comments: PATIENT WAS FASTINGPERFORMED BY: Malauzai Softwarelin6370 [facility] [id number] (22783) ALT (SGPT) 19 [iU]/L (Normal) Range: 0-40 [...] Glucose, Serum 98 mg/dL (Normal) Range: 65-99 17-Bgl-39663:30 MICROALBUMIN: CREATININE RATIO Comments: PATIENT WAS FASTINGPERFORMED BY: [facility]6370 [facility] [id number] (15977) AND (98392) Microalb/Creat Ratio 5.5 {mg/g_creat} (Normal) Range: 0.0-30.0 [...] regarding this repo rt, please call our 81K0mgylclb line @ Dictated on 01/24/12 0917 by Jaron Lindo MDTranscribed on 01/24/12 2329 by ITS IMPORTSign by Jaron Lindo MD on 01/24/12 2330 Sign by: Jaron Lindo MD 7-Bau-692764:46 CHEST, PA AND LATERAL Radiology Report See [...] regarding this report, ple ase call our 55X7xyhgajz line @ Dictated on 01/03/12 1257 by Rakesh Benavidez MDTranscribed on 01/04/12 1540 by ITS IMPORTSign by Rakesh Benavidez MD on 01/04/12 1540 Sign by: Rakesh Benavidez MD 14-Ttq-68366:30 MYOCARD PERF STRESS/REST MULT Radiology Report See Note (Normal) Comments: EXERCISE STRESS TEST HISTORYA 75-year-old lady with history of abnormal EKG. EHPUDSGXK23.0 mCi of Sestamibi was injected at rest. [...] 07/01/11 0530 by LIZBET CEDILLOUERITESign by Alejandro ALEXANDRE,[place] on 07/10/11 1645 Sign by: ___ Alejandro ALEXANDRE,Jose 15-Ceb-004818:03 Creatinine Clearance Comments: PERFORMED BY: [employer] [place] [id number] Information: 06/26/11@7AM 06/27/11@7AM Creatinine Clearance 68 mL/min [...] Creatinine, Serum 0.94 mg/dL (Normal) Range: 0.57-1.00 08-Cgt-961254:03 Protein Total, Qn, 24-Hr Comments: PERFORMED BY: [employer]angpu[employer]omb[employer] [place] [id number] Urine Prot,24hr calculated <31.5 {mg/24_hr} (Normal) Range: 30.0-150.0 Protein,Total,Urine <1.5 mg/dL (Normal) Range: 0.0-15.0 Comments: Verified by repeat analysis :21 LIPID PANEL (86150) Comments: in three months (approximately); PATIENT WAS FASTINGPERFORMED BY: JumpSeat70 [facility] [id number] Information: [id number] LDL/HDL Ratio 2.1 {ratio_units} (Normal) Range: 0.0-3.2 [...] Microscopic Examination Comments: PATIENT WAS FASTINGPERFORMED BY: JumpSeat70 [facility] [id number] Bacteria Few (Normal) Mucus Threads Present (Normal) Crystal Type Amorphous Sediment (Normal) Crystals Present (Abnormal) Cast Type Hyaline casts (Normal) Casts Present {/lpf} (Abnormal) Epithelial Cells (non renal) 0-10 {/hpf} (Normal) Range: 0 - 10 RBC 4-10 {/hpf} (Abnormal) Range: 0 - 3 WBC 0-5 {/hpf} (Normal) Range: 0 - 5 :23 CBC WITH MANUAL DIFF (32669) Comments: PATIENT WAS FASTINGPERFORMED BY: JumpSeat70 [facility] [id number] Immature Grans (Abs) 0.0 {x10E3/uL} (Normal) Range: [...] {x10E3/uL} (Normal) Range: 4.0-10.5 :23 LIPID PANEL (98944) Comments: PATIENT WAS FASTINGPERFORMED BY: LabCoInspira Medical Center VinelandAdkcnv3464 [facility] [id number] LDL/HDL Ratio 2.0 {ratio_units} (Normal) Range: 0.0-3.2 [...] PANEL, COMPREHENSIVE Comments: PATIENT WAS FASTINGPERFORMED BY: Cloudcam6370 [facility] [id number] (19828) ALT (SGPT) 32 [iU]/L (Normal) Range: 0-40 [...] (Normal) Range: 65-99 :23 URINALYSIS, W/ MICRO (46498) Comments: PATIENT WAS FASTINGPERFORMED BY: JumpSeat70 [facility] [id number]; appt 06/23/11 Microscopic Examination See below: (Normal) Nitrite, Urine Negative (Normal) Urobilinogen,Semi-Qn 0.2 mg/dL (Normal) Range: 0.0-1.9 Bilirubin Negative (Normal) Occult Blood Negative (Normal) Ketones Negative (Normal) Glucose Negative (Normal) Protein 1+ (Abnormal) WBC Esterase Negative (Normal) Appearance Cloudy (Abnormal) Urine-Color Yellow (Normal) pH 6.5 (Normal) Range: 5.0-7.5 Specific [place] 1.028 (Normal) Range: 1.005-1.030 72-Mjw-201719:23 BILAT SCRN DIGITAL & CAD Radiology Report [...] 01/25/11 2351 Sign by: ELVIS SMITH MD 22-Tja-152161:01 Urinalysis, Office (35858) UA - BILIRUBIN Negative (Normal) UA - [...] Microscopic Examination Comments: PATIENT WAS FASTINGPERFORMED BY: [employer] Ivyqgq7234 [facility] [id number] Bacteria Few (Normal) Mucus Threads Present (Normal) Epithelial Cells (non renal) 0-10 {/hpf} (Normal) Range: 0 - 10 RBC 0-3 {/hpf} (Normal) Range: 0 - 3 WBC 0-5 {/hpf} (Normal) Range: 0 - 5 LIPID PANEL (22833) Comments: PATIENT WAS FASTINGPERFORMED BY: WideAngle TechnologiesInspira Medical Center VinelandPxdjef2157 [facility] [id number] LDL/HDL Ratio 1.4 {ratio_units} (Normal) Range: 0.0-3.2 HDL Cholesterol 76 mg/dL (Normal) Comments: According to ATP-III Guidelines, HDL-C >59 mg/dL is considered anegative risk factor for CHD. LDL Cholesterol Calc 110 mg/dL (Abnormal) Range: 0-99 VLDL Cholesterol Thanh 23 mg/dL (Normal) Range: 5-40 Cholesterol, Total 209 mg/dL (Abnormal) Range: 100-199 Triglycerides 117 mg/dL (Normal) Range: 0-149 URINALYSIS, W/ MICRO (21403) Comments: PATIENT WAS FASTINGPERFORMED BY: WideAngle TechnologiesInspira Medical Center VinelandQwgfsz9090 [facility] [id number] Microscopic Examination See below: (Normal) Bilirubin Negative (Normal) Nitrite, Urine Negative (Normal) Occult Blood Negative (Normal) Urobilinogen,Semi-Qn 0.2 mg/dL (Normal) Range: 0.0-1.9 Appearance Clear (Normal) Glucose Negative (Normal) Ketones Negative (Normal) Protein 1+ (Abnormal) WBC Esterase Negative (Normal) pH 6.0 (Normal) Range: 5.0-7.5 Specific [place] 1.031 (Abnormal) Range: 1.005-1.030 Urine-Color Yellow (Normal) 21-Jje-16410:28 METABOLIC PANEL, COMPREHENSIVE Comments: PATIENT WAS FASTINGPERFORMED BY: WideAngle TechnologiesInspira Medical Center VinelandJewqrq8370 [facility] [id number] (98213) Alkaline Phosphatase, S 47 [iU]/L (Normal) Range: [...] Glucose, Serum 98 mg/dL (Normal) Range: 65-99 21-Jxc-94521:28 CBC WITH MANUAL DIFF Comments: PATIENT WAS FASTINGPERFORMED BY: [facility]Ins[facility]6370 [facility] [id number] Information: [id number] (69146) Immature Grans (Abs) 0.0 {x10E3/uL} (Normal) Range: [...] Cristobal on 09/06/1049 Sign by: Pao Cristobal 15-Eur-323567:35 N-Telopeptide, Urine Comments: PERFORMED BY: BN [facility] Jbqogypqxo1467 [facility] [id number] BY: CB [facility] Oncrmm1906 [facility] [id number] Information: 06/23@7AM 06/24@7AM Interpretive Guide: SPRCS (Normal) [...] 1.4 p=0.2838- 51 2.5 p=0.0351- 67 3.8 p=0.081728-573 17.3 p=0.06546. Menopausal Women Receiving Antiresorptive Therapy: Theprobability that treatment is effective after threemonths is increased when the measured NTx va lue is<or=38 nM BCE/mM BORDER MEASURER AND CUTTER, or NTx has decreased >or=30% frombaseline (1)..3. [...] N-telopeptide 34 {nmol_BCE} (Normal) :11 Urinalysis, Office (91460) UA - LEUKOCYTE ESTERASE Negative (Normal) UA [...] Report See Note (Normal) Comments: Exam Number: [id number] MYOCARDIAL PERFUSION SCAN TECHNIQUEThe patient was injected [...] of 62%. Reported By: ROMEL SILVERIO M.D. 97-Riu-129252:11 BRAIN W/WO CONTRAST Radiology Report See Note (Normal) Comments: Exam Number: [id number] CLINICAL:73-year-old female with tremors for over one [...] ischemic changes. Reported By: ELVIS BEARD M.D. 64-Smu-660032:39 Basic Metabolic Panel (8) Comments: A courtesy copy of this report has been sent [phone].PERFORMED BY: [facility]6370 [facility] [id number] Information: [id number] Calcium, Serum 9.7 mg/dL (Normal) Range: 8.6-10.2 [...] CREATININE RATIO Comments: PATIENT WAS FASTINGPERFORMED BY: Cloudcam6370 [facility] [id number] (18695) AND (94026) Microalb/Creat Ratio 4.3 {mg/g_creat} (Normal) Range: 0.0-30.0 Microalbumin, Urine 6.1 ug/mL (Normal) Range: 0.0-17.0 Creatinine, Urine 140.7 mg/dL (Normal) Range: 15.0-278.0 :15 METABOLIC PANEL, COMPREHENSIVE Comments: PATIENT WAS FASTINGPERFORMED BY: [employer].[facility] VinelandTmjzuy1058 [facility] [id number] (90348) ALT (SGPT) 30 [iU]/L (Normal) Range: 0-40 [...] Glucose, Serum 94 mg/dL (Normal) Range: 65-99 93-Yno-88317:15 LIPID PANEL (36645) Comments: PATIENT WAS FASTINGPERFORMED BY: LabCoInspira Medical Center VinelandQatbiy7502 [facility] [id number] LDL Cholesterol Calc 150 mg/dL (Abnormal) Range: [...] MANUAL DIFF Comments: PATIENT WAS FASTINGPERFORMED BY: [facility]6370 [facility] [id number] Information: ADD [id number] AND DRAW FEE 99 7219 (72352) Immature Grans (Abs) 0.0 {x10E3/uL} (Normal) Range: [...] 3.80-5.10 WBC 6.0 {x10E3/uL} (Normal) Range: 4.0-10.5 93-Xuq-782565:33 CELINE CULTURE-OTHER (80851) Comments: PATIENT NOT FASTINGPERFORMED BY: LATA [facility] Brjcxh1228 [place] [id number] Information: SRC:CARLOS [id number] Result 1 RRF (Normal) Comments: Routine respiratory graeme Upper Respiratory Culture Final report (Normal) 24-Mqh-942006:14 Rapid Strep Test, Office (43886) Rapid Strep Test, Office Negative (Normal) 14-Fua-227425:38 BRAIN/HEAD W/WO CONTRAST Radiology Report See Note (Normal) Comments: Exam Number: [id number] CT SCAN OF THE HEAD Multiple axial [...] without intravenous contrast. Reported By: ROGELIO KUMAR 58-Kru-953222:47 BILAT SCRN DIGITAL & CAD Radiology Report See Note (Normal) Comments: Exam Number: [id number] MAMMOGRAM, BILATERAL SCREENING DIGITAL AND CAD HISTORYRoutine screening. Full field digital images were obtained in mediolateral oblique andcraniocaudal projections. CAD images w ere reviewed. The current study is compared to the examinations of June and September 08, 2008 from the [facility]. There is moderately dense fibroglandular parench yma [...] mammograms werealso examined with computer-aided detection software ([employer]). Reported By: ELVIS SMITH M.D. 08-Tzx-537642:46 DEXA BONE DENSITY STUDY () Radiology Report See Note (Normal) Comments: Exam Number: [id number] DEXA AXIAL SKELETON A DEXA scan was [...] IMPRESSIONOsteopenia. Reported By: ROGELIO KUMAR 08-Jan-20109:14 TSH (31456) Comments: PATIENT WAS FASTINGPERFORMED BY: [email or web address] LabCoflaveitGmnibl4523 [facility] [id number] TSH 1.980 {uIU/mL} (Normal) Range: 0.450-4.500 08-Jan-20109:14 METABOLIC PANEL, COMPREHENSIVE Comments: PATIENT WAS FASTINGPERFORMED BY: [email or web address] [facility] Kgarbl2257 [facility] [id number] (60224) ALT (SGPT) 17 [iU]/L (Normal) Range: 0-40 [...] mg/dL (Normal) Range: 65-99 :14 LIPID PANEL (70180) Comments: PATIENT WAS FASTINGPERFORMED BY: TaodangpuWake Forest [facility] [id number] HDL Cholesterol 84 mg/dL (Normal) Comments: According [...] MANUAL DIFF Comments: PATIENT WAS FASTINGPERFORMED BY: Cloudcam6370 [place] [employer] [facility] [id number] Information: [id number] (84629) Baso (Absolute) 0.1 {x10E3/uL} (Normal) Range: 0.0-0.2 [...] 3.80-5.10 WBC 6.3 {x10E3/uL} (Normal) Range: 4.0-10.5 40-Skg-056166:23 Urinalysis, Office (33220) UA - BILIRUBIN Negative (Normal) UA - BLOOD Negative (Normal) UA - GLUCOSE Negative (Normal) UA - KETONES Negative mg/dL (Normal) UA - LEUKOCYTE ESTERASE Negative (Normal) UA - NITRITE Negative (Normal) UA - PH 7.0 (Normal) UA - PROTEIN Negative mg/dL (Normal) UA - SPECIFIC GRAVITY 1.010 (Normal) URINE UROBILINGN JOSÉ MIGUEL TIMED Normal mg/dL (Normal) 47-Yqn-675610:48 Hepatic Function Panel (7) Comments: PERFORMED BY: [place] 8549570 [facility] [id number] Albumin, Serum 4.4 g/dL (Normal) Range: 3.5-4.8 Alkaline Phosphatase, S 57 [iU]/L (Normal) Range: 25-165 ALT (SGPT) 25 [iU]/L (Normal) Range: 0-40 AST (SGOT) 27 [iU]/L (Normal) Range: 0-40 Bilirubin, Direct 0.14 mg/dL (Normal) Range: 0.00-0.40 Bilirubin, Total 0.4 mg/dL (Normal) Range: 0.1-1.2 Protein, Total, Serum 6.4 g/dL (Normal) Range: 6.0-8.5 :29 Urinalysis, Office (17790) UA - BILIRUBIN Negative (Normal) UA - [...] Comments: PATIENT NOT FASTINGClinical Information: SRC:UR ADD [id number] PERFORMED BY: 3dimCoVuzixJluksd7961 [facility] [id number] COUNT (68112) Result 1 NG36 (Normal) Comments: No growth in 36 - 48 hours. Urine Culture,Comprehensive Final report (Normal) :50 Metabolic Panel, Basic (56665) Comments: PATIENT NOT FASTINGClinical Information: ADD DRAW FEE 663502 ADD J 06464 PERFORMED BY: LabCo Dcvprz8259 [facility] [id number] BUN 16 mg/dL (Normal) Range: 5-26 BUN/Creatinine [...] mmol/L (Normal) Range: 135-145 :58 Urinalysis, Office (74030) UA - BILIRUBIN Negative (Normal) UA - BLOOD Hemolyzed Trace (Normal) UA - GLUCOSE Negative (Normal) UA - KETONES Negative mg/dL (Normal) UA - LEUKOCYTE ESTERASE Negative (Normal) UA - NITRITE Negative (Normal) UA - PH 7.0 (Normal) UA - PROTEIN Negative mg/dL (Normal) UA - SPECIFIC GRAVITY 1.010 (Normal) URINE UROBILINGN JOSÉ MIGUEL TIMED 2 mg/dL (Normal) 4-Gqx-590688:23 SHOULDER,MIN 2 VIEWS Radiology Report See Note (Normal) Comments: Exam Number: [id number] SHOULDER SERIES. HISTORYA 73-year-old woman with right shoulder pain. FINDINGSRight shoulder series. Cortical outlines are intact. Bones arenormally aligned, and joint spaces ar e well maintained. Soft tissuesare unremarkable. IMPRESSIONUnremarkable right shoulder series. Reported By: DAYNA RECINOS M.D. 07-Jan-20099:07 Hepatic Function Panel (7) Comments: PATIENT WAS FASTINGPERFORMED BY: [facility]Insight [facility] Hospital6370 [facility] [id number] Albumin, Serum 4.3 g/dL (Normal) Range: 3.5-4.8 Alkaline Phosphatase, S 63 [iU]/L (Normal) Range: 25-165 ALT (SGPT) 27 [iU]/L (Normal) Range: 0-40 AST (SGOT) 29 [iU]/L (Normal) Range: 0-40 Bilirubin, Direct 0.10 mg/dL (Normal) Range: 0.00-0.40 Bilirubin, Total 0.3 mg/dL (Normal) Range: 0.1-1.2 Protein, Total, Serum 7.0 g/dL (Normal) Range: 6.0-8.5 :38 TSH (52286) Comments: PATIENT NOT FASTINGClinical Information: ADD DRAW FEE 035604 ADD J 48354 PERFORMED BY: Cloudcam6370 [facility] [id number] TSH 1.604 {uIU/mL} (Normal) Range: 0.450-4.500 :25 Metabolic Panel, Comprehensive Comments: PATIENT WAS FASTINGClinical Information: ADD 374289, [id number] PERFORMED BY: Cloud[employer]6370 [facility] [id number] (54872) A/G Ratio 2.4 (Normal) Range: 1.1-2.5 Albumin, [...] mmol/L (Normal) Range: 135-145 :25 Lipid Panel (00812) Comments: in six months (approximately); PATIENT WAS FASTINGPERFORMED BY: LabCoInspira Medical Center VinelandBjgiia8324 [facility] [id number] Cholesterol, Total 256 mg/dL (Abnormal) Range: 100-199 HDL Cholesterol 73 mg/dL (Normal) Comments: According to ATP-III Guidelines, HDL-C >59 mg/dL is considered anegative risk factor for CHD. LDL Cholesterol Calc 156 mg/dL (Abnormal) Range: 0-99 LDL/HDL Ratio 2.1 {ratio_units} (Normal) Range: 0.0-3.2 Triglycerides 133 mg/dL (Normal) Range: 0-149 VLDL Cholesterol Thanh 27 mg/dL (Normal) Range: 5-40 :20 Urinalysis, Office (83648) UA - BILIRUBIN Negative (Normal) UA - [...] Report See Note (Normal) Comments: Exam Number: [id number] MYOCARDIAL PERFUSION SCAN 11.7 millicuries of Tc99m [...] By: JOSE AGUILERA M.D. :55 Urinalysis, Office (72527) UA - BILIRUBIN Negative (Normal) UA - [...] 0.2 EU/dl (Normal) Range: 0.2 - 1.0 82-Lkn-018186:20 EB ANTIBODY EARLY ANTIGN Comments: PATIENT NOT FASTINGPERFORMED BY: [facility]dimIns[facility] Hospital6370 [facility] [id number] (96277) EBV Ab VCA, IgG 1276 AU/mL (Abnormal) [...] + + Antibody Present - Antibody Absent 17-Hxi-20122:36 Upper Respiratory Culture Comments: Clinical Information: SRC:TH PERFORMED BY: WideAngle TechnologiesInspira Medical Center VinelandBgjwtu8078 [facility] [id number] Result 1 RRF (Normal) Comments: Routine respiratory graeme Upper Respiratory Culture Final report (Normal) :48 Rapid Strep Test, Office (73590) Comments: neg Rapid Strep Test, Office Negative [...] mg/dL VLDL 13 mg/dL (Normal) Range: 5-40 75-Rjj-598313:41 URINE CELINE CULTURE-JOSÉ MIGUEL COL Comments: PATIENT NOT FASTINGClinical Information: SRC:UR PERFORMED BY: [employer] Uorfpm7669 [facility] [id number] COUNT (37025) Result 1 NG36 (Normal) Comments: No growth in 36 - 48 hours. Urine Culture,Comprehensive Final report (Normal) 71-Nds-396679:30 Urinalysis, Office (61796) UA - LEUKOCYTE ESTERASE Trace (Normal) UA - NITRITE Negative (Normal) UA - PH 7.5 (Normal) UA - PROTEIN Negative mg/dL (Normal) URINE UROBILINGN JOSÉ MIGUEL TIMED 2 mg/dL (Normal) UA - BILIRUBIN Negative (Normal) UA - BLOOD Negative (Normal) UA - GLUCOSE Negative (Normal) UA - KETONES Negative mg/dL (Normal) UA - SPECIFIC GRAVITY 1.010 (Normal) 98-Jcq-412965:09 URINE CELINE CULTURE (JOSÉ MIGUEL COL Comments: PATIENT NOT FASTINGClinical Information: SRC:UR ADD [id number] PERFORMED BY: JumpSeat70 [facility] [id number] COUNT) (24735) Antimicrobial MIHEAD (Normal) Comments: S = Susceptible; [...] mL (Normal) Urine Final report Culture,Comprehensive (Normal) 40-Wxi-268376:56 Urinalysis, Office (92576) UA - BILIRUBIN Negative (Normal) UA - [...] Report See Note (Normal) Comments: Exam Number: [id number] LUMBAR SPINE, FIVE VIEWS. INDICATIONLow back pain. [...] pain, right Knee pain, right : Reviewed Steel Pan Form Placing Supervisor Letter Indication: Knee pain, right Knee pain, [...] : Follow up in 4 months with [facility] for Gen Med Indication: Osteoporosis Osteoporosis [...] back pain Planned Observations URINALYSIS, W/ MICRO (28176)Indication: Hypertension On: 04-Oyz-420375:14 Request URINE CELINE CULTURE-IDENTIFICATN (20465)Indication: Right flank pain On: 4-Hnh-600651:15 Request CALCIFIDIOL (74398) VIT D 25Indication: Osteoporosis On: 10-Lir-396279:51 Request MICROALBUMIN: CREATININE RATIO (57623) AND (13019)Indication: Hypertension On: :51 Request METABOLIC PANEL, COMPREHENSIVE (16397)Indication: Hypertension On: 15-Tln-036210:51 Request LIPID PANEL (87620)Indication: Hypertension On: :51 Request CBC W/AUTO DIFF WBC (02479)Indication: Hypertension On: :51 Request URINALYSIS, W/ MICRO (26156)Indication: Hypertension On: 49-Nce-277837:10 Request METABOLIC PANEL, COMPREHENSIVE (92859)Indication: Hypertension On: 59-Uev-420468:10 Request LIPID PANEL (77983)Indication: Hypertension On: 17-Exs-323992:10 Request CBC WITH MANUAL DIFF (59857)Indication: Hypertension On: 29-Idh-438621:10 Request CBC, PLATELETS & MANUAL DIFF (30095)Indication: Hypertension On: 8-Fsb-027966:12 Request MICROALBUMIN: CREATININE RATIO (40917) AND (15717)Indication: Hypertension On: 78-Iuv-151485:43 Request METABOLIC PANEL, COMPREHENSIVE (21520)Indication: Hypertension On: 08-Lai-856034:43 Request LIPID PANEL (45529)Indication: Hypertension On: 07-Zhm-326689:43 Request CBC WITH MANUAL DIFF (80430)Indication: Hypertension On: 76-Kfp-548099:43 Request CREATININE CLEARANCE (74276)Indication: Proteinuria On: 91-Abr-183076:12 Request Comments: now 24 hour urine for Protein (40316)Indication: Proteinuria On: 28-Mvj-450142:12 Request Collagen Crosslinked N-Telopeptide (06972)Indication: Osteoporosis On: 97-Omp-81038:59 Request Comments: 24 hour urine check now and in six months (approximately) HEPATIC FUNCTION PANEL (71351)Indication: oncomycosis On: :03 Request Comments: monthly x 3 EB ANTIBODY VIRAL CAPSID (90600) N4Ghbhlodxao: Pharyngitis, acute On: :13 Request EB ANTIBODY NUCLR ANTIGN (27141)Indication: Pharyngitis, acute On: 22-Wum-977369:13 Request CELINE CULTURE-OTHER (25962)Indication: Pharyngitis, acute On: :48 Request URINALYSIS W/O MICRO (62429)Indication: Hypertension On: :16 Request METABOLIC PANEL, COMPREHENSIVE (18993)Indication: Hypertension On: :16 Request CBC WITH MANUAL DIFF (69297)Indication: Hypertension On: :16 Request Comments: in six months (approximately) LIPID PANEL (25403)Indication: Hypertension On: :16 Request CBC (Auto) (94902)Indication: Hypercholesterolemia On: :24 Request Metabolic Panel, Comprehensive (86580)Indication: Hypercholesterolemia On: :24 Request Lipid Panel (70890)Indication: Hypercholesterolemia On: :24 Request Comments: in six months (approximately) Metabolic Panel, Comprehensive (59808)Indication: Hypercholesterolemia On: 24-Otm-828682:09 Request Lipid Panel (12809)Indication: Hypercholesterolemia On: 31-Acx-024377:09 Request Comments: 4m Planned Encounters Medical; 3 Month FU - On: 08-Oct-2018 13:45 Comprehensive Internal Medicine Nguyen Santana CNP, CNP, Mary E Planned Procedures ELECTROCARDIOGRAM, COMPLETE (ECG) On: 30-Jul-2018 Intent (78555)By: Zoraida Stewart Comments: Sinus Rhythm-HR 86-occasional ectopic ventricular beat-No new changes from last EKG. SCREENING DIGITAL TOMOSYNTHESIS OF On: 11-Jun-2018 Intent BREAST (69190)By: Nguyen Santana CNP, CNP, Mary E DEXA SCAN AXIAL SKELETON (01607)By: On: 11-Jun-2018 Intent Nguyen Santaan CNP, CNP, Mary E Flu Vaccine (Quadrivalent) 77053Rn: On: 11-Jun-2018 Intent Nguyen Santana CNP, CNP, Mary E Aerosol Treatment (57700)By: Terry On: 09-Nov-2017 Intent Zoraida Comments: Better air exchange after aerosol treatment. Holter Monitor 24 hrsBy: Max GIVENS, On: 15-Sep-2017 Intent Nguyen Skinner CNP Spirometry (61211)By: Max GIVENS, On: 15-Sep-2017 Intent Nguyen Skinner CNP Comments: mod severe restriction ELECTROCARDIOGRAM, COMPLETE (ECG) On: 15-Sep-2017 Intent (95870)By: Nguyen Santana CNP Comments: sinus bradycardia Nguyen GIVENS MAGNETIC RESONANCE IMAGING OF RIGHT On: 05-Jul-2017 Intent KNEE WITHOUT CONTRAST (48428)By: Nguyen Santana CNP, CNP, Mary E Flu Vaccine (Quadrivalent) 04962Cw: On: 14-Jun-2017 Intent Nguyen Santana CNP, CNP, Mary E Comments: Lot:[id number]:03/19/18Dose:0.5mLRoute:IMSite:L DltdGiven By:asVIS signed Ultrasound - LiverBy: Nguyen Santana CNP On: 08-Mar-2017 Intent Nguyen Mata CNP Comments: REpeat in Jun 2017 CT - Abdomen & Pelvis Stone On: 30-Nov-2016 Intent ProtocolBy: Nguyen Santana CNP, CNP, Mary E Flu Vaccine (Quadrivalent) 98492Fc: On: 23-Aug-2016 Intent Jo Gaitan LPN Flu Vaccine (Quadrivalent) 84047Su: On: 15-Sep-2015 Intent George Bueno MD Comments: lot [id number]: 03/31/2016site/route L jean, IMamt 0.5mlVIS and ABN signed when applicableChelsea, SCALE ASSEMBLY SET UP WORKER Kenalog Injection, 10 mgm (J3301)By: On: 20-Mar-2015 Intent George Bueno MD Comments: x4 TDAP VACCINE >7 IM (14937)By: Ximena On: 17-Mar-2015 Intent George ALEXANDRE MRI - Shoulder(s) - RightBy: Ximena On: 17-Mar-2015 Intent George ALEXANDRE ADMINISTRATION OF INFLUENZA VIRUS On: 16-Sep-2014 Intent VACCINE (G0008)By: George Bueno MD Flu Vaccine (Quadrivalent) 07867Id: On: 16-Sep-2014 Intent George Bueno MD ELECTROCARDIOGRAM, COMPLETE (ECG) On: 16-Sep-2014 Intent (28981)By: George Bueno MD Comments: routine for baseline see scanned document of test done to see results reviewed today with patient Aerosol Treatment (09120)By: Max On: 01-Sep-2014 Intent CHON Mary Max 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, Nguyen Briones Eprescribed prescriptions (G8553)By: On: 25-Feb-2014 Intent George Bueno MD Kenalog Injection, 10 mgm (J3301)By: On: 14-Jan-2014 Intent George Bueno MD Kenalog Injection, 10 mgm (J3301)By: On: 14-Jan-2014 Intent George Bueno MD Kenalog Injection, 10 mgm (J3301)By: On: 14-Jan-2014 Intent George Bueno MD Kenalog Injection, 10 mgm (J3301)By: On: 14-Jan-2014 Intent George Bueno MD DXA, BONE DENSITY, AXIAL SKELETON On: 14-Jan-2014 Intent (60316)By: George Bueno MD MAMMOGRAM, SCREENING, BOTH BREASTS On: 14-Jan-2014 Intent (17110)By: George Bueno MD Eprescribed prescriptions ([id number])By: On: 14-Jan-2014 Intent George Bueno MD FLU VAC, SPLIT, >3 YEARS, INTRAMUSC On: 06-Sep-2013 Intent ([id number])By: PAM Sanz Comments: Lot #:[id number] date:03.15Amount given:0.5mlRoute: IMSite given:L DltdGiven by: VIS and ABN signed ADMINISTRATION OF INFLUENZA VIRUS On: 06-Sep-2013 Intent VACCINE (G0008)By: PAM Sanz Breast Screening - BilateralBy: On: 05-Jul-2013 Intent George Bueno MD Eprescribed prescriptions (G8553)By: On: 07-Mar-2013 Intent Shelby Padilla ELECTROCARDIOGRAM, COMPLETE (ECG) On: 14-Dec-2012 Intent ([id number])By: Nguyen Santana CNP, CNP, Mary E ADMINISTRATION OF INFLUENZA VIRUS On: 11-Sep-2012 Intent VACCINE (G0008)By: George Bueno MD FLU VAC, SPLIT, >3 YEARS, INTRAMUSC On: 11-Sep-2012 Intent ([id number])By: George Bueno MD Eprescribed prescriptions ([id number])By: On: 29-May-2012 Intent George Bueno MD EKG ([id number])By: George Bueno MD On: 28-Feb-2012 Intent Comments: see scanned document of test done to see results reviewed today with patient Holter Monitor 24 hrsBy: Ximena ALEXANDRE, On: 28-Feb-2012 Intent George Moncada DXA, BONE DENSITY, AXIAL SKELETON On: 28-Feb-2012 Intent ([id number])By: George Bueno MD MAMMOGRAM, SCREENING, BOTH BREASTS On: 28-Feb-2012 Intent ([id number])By: George Bueno MD Pulse Oximetry (45305)By: Yvon On: 28-Feb-2012 Intent PAM Ultrasound - AortaBy: Ximena ALEXANDRE, On: 17-Jan-2012 Intent George Moncada Carotid DopplerBy: George Bueno MD On: 17-Jan-2012 Intent Pulse Oximetry (78049)By: Yvon On: 17-Jan-2012 Intent PAM Spirometry (65280)By: Max GIVENS, On: 10-Jan-2012 Intent Nguyen Skinner CNP Comments: Servere airway obstruction with low vital capacity Aerosol Treatment (60261)By: Max On: 10-Jan-2012 Intent Nguyen GIVENS CNP, Mary E Solu -Medrol Injection, 125 mg On: 03-Jan-2012 Intent ([id number])By: Nguyen Santana CNP Comments: Lot # [id number]-R hip. IMDose 125nggiven by:Nguyen Lane CNP Radiology - ChestBy: Nguyen Santana CNP On: 03-Jan-2012 Intent E Nguyen Santana CNP Aerosol Treatment ([id number])By: Max On: 03-Jan-2012 Intent Nguyen GIVENS CNP, Mary E Pulse Oximetry (09688)By: Gab BETHEA, On: 03-Jan-2012 Intent Taryn Solu -Medrol Injection, 125 mg On: 30-Dec-2011 Intent ([id number])By: Max GIVENS Nguyen Briones Brittanyadrien Comments: Lot #[id number]-left hipDose-125mggiven by: Marie Alvarado LPN Nguyen GIVENS Aerosol Treatment (06441)By: Max On: 30-Dec-2011 Intent Nguyen GIVENS CNP, Mary E Solu -Medrol Injection, 125 mg On: 28-Dec-2011 Intent ([id number])By: Max GIVENS Nguyen Briones Nurisglynn Comments: Lot #[id number]-right hipDose-125 mggiven by: Marie Alvarado LPN CNP Nguyen Briones Aerosol Treatment ([id number])By: Max On: 28-Dec-2011 Intent Nguyen GIVENS CNP, Mary E Pulse Oximetry ([id number])By: Max GIVENS, On: 26-Dec-2011 Intent Nguyen Skinner CNP Aerosol Treatment (66822)By: Max On: 26-Dec-2011 Intent Nguyen GIVENS CNP, Mary E FLU VAC, SPLIT, >3 YEARS, INTRAMUSC On: 19-Aug-2011 Intent ([id number])By: George Bueno MD Comments: refuse Echo CompleteBy: George Bueno MD On: 23-Jun-2011 Intent Nuclear Stress Test/Stress On: 23-Jun-2011 Intent SPECT/TreadmillBy: George Bueno MD EKG ([id number])By: George Bueno MD On: 23-Jun-2011 Intent ADMINISTRATION OF PNEUMOCOCCAL On: 15-Dec-2010 Intent VACCINE (G0009)By: George Bueno MD PNEUM VAC ADLT/IMUMNOSPR, SBC/INTRM On: 15-Dec-2010 Intent ([id number])By: George Bueno MD MAMMOGRAM, SCREENING, BOTH BREASTS On: 15-Dec-2010 Intent ([id number])By: George Bueno MD Eprescribed prescriptions ([id number])By: On: 15-Dec-2010 Intent George Bueno MD Aerosol Treatment (32251)By: Ximena On: 06-Dec-2010 Intent George ALEXANDRE Pulse Oximetry (65186)By: Yvon On: 06-Dec-2010 Intent PAM Spirometry (74182)By: Ximena ALEXANDRE, On: 31-Aug-2010 Intent George Moncada Radiology - ChestBy: George Bueno MD On: 31-Aug-2010 Intent Antwan Nuclear Stress Test/Stress On: 27-May-2010 Intent SPECT/TreadmillBy: George Bueno MD ELECTROCARDIOGRAM, COMPLETE (ECG) On: 27-May-2010 Intent ([id number])By: George Bueno MD Spirometry (48787)By: Ximena ALEXANDRE, On: 27-May-2010 Intent George Moncada Pulse Oximetry (08307)By: Ximena ALEXANDRE, On: 27-May-2010 Intent George Moncada MRI - BrainBy: George Bueno MD On: 27-May-2010 Intent Aerosol Treatment ([id number])By: Feliciano DRUMMOND, On: 22-Mar-2010 Intent Holly Lawton Pulse Oximetry (84268)By: Ashlee On: 22-Mar-2010 Intent Stephanie Comments: 95%- spirometry with mod airway obsst CT - Brain/Head (IV Contrast On: 04-Feb-2010 Intent Needed)By: George Bueno MD Comments: attention posterior fossa EKG (49625)By: George Bueno MD On: 01-Jan-2010 Intent DXA, BONE DENSITY, AXIAL SKELETON On: 01-Jan-2010 Intent ([id number])By: George Bueno MD MAMMOGRAM, SCREENING, BOTH BREASTS On: 01-Jan-2010 Intent ([id number])By: George Bueno MD MRI - Shoulder(s) - RightBy: Ximena On: 01-Jan-2010 Intent George ALEXANDRE Radiology - Shoulder - RightBy: On: 07-Jan-2009 Intent George Bueno MD Holter Monitor 24 hrsBy: Ximena ALEXANDRE, On: 09-Dec-2008 Intent George Moncada ELECTROCARDIOGRAM, COMPLETE (ECG) On: 09-Dec-2008 Intent ([id number])By: George Bueno MD Spirometry (25037)By: Ximena ALEXANDRE, On: 09-Dec-2008 Intent George Moncada Pulse Oximetry (20300)By: Ximena ALEXANDRE, On: 09-Dec-2008 Intent George Moncada EKG (25753)By: George Bueno MD On: 29-May-2008 Intent Nuclear Stress Test/Stress On: 29-May-2008 Intent SPECT/TreadmillBy: George Bueno MD Pulse Oximetry (63277)By: Daniel ALBA, On: 13-Mar-2008 Intent Gin SPECIMEN HNDLNG/TRNSPRT, OFFC > LAB On: 13-Mar-2008 Intent ([id number])By: Gin Sanchez LPN Echo CompleteBy: George Bueno MD On: 29-Nov-2007 Intent Radiology - Lumbar SpineBy: Ximena On: 29-May-2007 Intent George ALEXANDRE Radiology - Ankle - LeftBy: Ximena On: 28-Jun-2006 Intent George ALEXANDRE Planned Medications INJECTION, METHYLPREDNISOLONE SODIUM SUCCINATE, UP TO 125 MG Ordered: 28-Dec-2011 Pending Ciesa 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, Mary Ciesa 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, Mary INJECTION, METHYLPREDNISOLONE SODIUM SUCCINATE, UP TO 125 MG Ordered: 30-Dec-2011 Pending Ciesa 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, Mary Ciesa 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, Mary INJECTION, METHYLPREDNISOLONE SODIUM SUCCINATE, UP TO 125 MG Ordered: 03-Jan-2012 Pending Ciesa 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, Mary Ciesa 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, Mary INJECTION, TRIAMCINOLONE ACETONIDE, NOT OTHERWISE SPECIFIED, 10 MG Ordered: 14-Jan-2014 Pending George Bueno MD INJECTION, TRIAMCINOLONE ACETONIDE, NOT OTHERWISE SPECIFIED, 10 MG Ordered: 14-Jan-2014 Pending George Bueno MD INJECTION, TRIAMCINOLONE ACETONIDE, NOT OTHERWISE SPECIFIED, 10 MG Ordered: 14-Jan-2014 Pending George Bueno MD INJECTION, TRIAMCINOLONE ACETONIDE, NOT OTHERWISE SPECIFIED, 10 MG Ordered: 14-Jan-2014 Pending Goerge Bueno MD INJECTION, TRIAMCINOLONE ACETONIDE, NOT OTHERWISE [...] Indication: Hypertension Hypertension : DISCONTINUED - URINALYSIS (80993) Indication: Hypertension Hypertension : DISCONTINUED - MICROALBUMIN: CREATININE RATIO (06558) AND (30490) Indication: Hypertension Screening for breast cancer : DISCONTINUED - BILATERAL MAMMOGRAMS (86595) Indication: Screening for breast cancer Osteoporosis : [...] The patient does have durable power of road monkey and living will. The patient has noticed dropping activities and interests, poor spirits most of time, staying at home rather than doing something new or going out, having problems with memory than others, feeling worthless and lack of energy. Other providers contributing to the patient's care are answerer (nusrat) and other: (last eye exam 2018- dr. wahley). Note for Annual Medicare Exam: Here for [...] Need for immunization against influenza), Mitral Valve Qlmeumwxdexbg601.6), Osteoporosis (733.00), Irritable bowel syndrome (564.1), ATHEROSCLEROSIS, AORTIC (440.0), Anxiety (300.00), History of colon polyps, Asthma, intrinsic, mild intermittent, with status asthmaticus, Osteoarthritis, Shoulder pain (719.41), Allergic rhinitis [facility] Office Visit On: 19-Mar-2015 10:42 Encounter Reason: Injections - The medication the patient is here to receive is other (2 cc marcaine lot# [id number] exp: 01-31-2016 1cc kenalog lot# [id number] exp right shoulder ).Encounter Diagnosis: Shoulder pain [...] The patient does have durable power of road monkey and living will. The patient has noticed nothing from the geriatic depression scale. Other providers contributing to the patient's care are answerer (Dr Silverio) and other: (Dr ridley saw [...] (733.00), Hypercholesterolemia (272.0), Osteoarthritis (715.96), Mitral Valve Yvliizmamjksp665.6), Colon Polyps, History of (V12.72), Asthma,Intrinsic (493.11), [...] incontinence, female, Fever and chills, Mitral Valve Pgpwqnvcrbeoe278.6), Colon Polyps, History of (V12.72), Irritable bowel [...] (493.11), Irritable bowel syndrome (564.1), Mitral Valve Arictaggsjsxm045.6), Colon Polyps, History of (V12.72), Osteoporosis (733.00), [...] The patient does have durable power of road monkey and living will. The patient has noticed having problems with memory than others. Other providers contributing to the patient's c are are answerer (Dr Silverio) and other: (Dr Rodrigues and [...] (401.0)), Osteoarthritis (715.96), Anxiety (300.00), Mitral Valve Amlqcigqlvhfd473.6), Osteoporosis (733.00), Allergic Rhinitis(477.9), Tremors (781.0), ATHEROSCLEROSIS, [...] from Hypertension (401.0)), Anxiety (300.00), Mitral Valve Fdziablwkpstl059.6), Hypercholesterolemia (272.0), Asthma,Intrinsic (493.11), Colon Polyps, History [...] from Hypertension (401.0)), Anxiety (300.00), Mitral Valve Krurdhskptpli249.6), Osteoarthritis (715.96), Osteoporosis (733.00), Allergic Rhinitis(477.9), ATHEROSCLEROSIS, [...] (733.00), Hypercholesterolemia (272.0), Asthma,Intrinsic (493.11), Mitral Valve Rncvdlniucqls318.6), Sleep disorder (780.50), ATHEROSCLEROSIS, AORTIC (440.0), Anxiety [...] ATHEROSCLEROSIS, AORTIC (440.0), Bradycardia (427.89), Mitral Valve Cxttwiacjulrj472.6), Hip bursitis 726.5, Hypercholesterolemia (272.0), Anxiety (300.00), [...] Hypercholesterolemia (272.0), ATHEROSCLEROSIS, AORTIC (440.0), Mitral Valve Zhyfcfzltbbha725.6), Hip bursitis 726.5 [facility] [...] Anxiety (300.00), Chronic cough (786.2), Mitral Valve Bibwgjnfklowb589.6), Irritable bowel syndrome (564.1), Asthma,Intrinsic (493.11), Colon [...] Sleep disorder (780.50), Tremors (781.0), Mitral Valve Otfsagbomqslh524.6), Anxiety (300.00), Osteoporosis (733.00), Irritable bowel syndrome [...] from Hypertension (401.0)), Tremors (781.0), Mitral Valve Fxuwccxwfohdw209.6), WWV-Bare, Shoulder pain (719.41), Headache (784.0), Irritable [...] (427.89), Irritable bowel syndrome (564.1), Mitral Valve Zyljkputrezxv039.6), Headache (784.0), WWV-Bare [facility] [...] (427.89), Irritable bowel syndrome (564.1), Mitral Valve Cnyasmwnbcrue578.6), Other specified pruritic conditions (698.8), Headache (784.0) [...] (788.1), Low back pain (724.2), Mitral Valve Rmcglskcjwcwf588.6), Osteopenia (733.90), Diarrhea (787.91), Sleep disorder (780.50), [...] (733.90), Acute sinusitis, unspecified (461.9), Mitral Valve Ptjrgajgmgrfz079.6), WWV-Bare, Low back pain (724.2), Sciatica (724.3), [...] were reported. none reported. Note for Sinusitis/: [place] heat over bodyEncounter Diagnosis: ACUTE PHARYNGITIS (462.), [...] (272.0), Osteoarthritis (715.96), Allergic Rhinitis(477.9), Mitral Valve Zynjflrflufbi897.6), Low back pain (724.2), Sciatica (724.3), WWV-Bare [...] (845.09), Hypertension (401.0), Hypercholesterolemia (272.0), Mitral Valve Lkqakxrpxddkj358.6), Sciatica (724.3), Allergic Rhinitis(477.9), WWV-Bare, Low back [...] (715.96), Hypercholesterolemia (272.0), Osteopenia (733.90), Mitral Valve Emwjgsxicmzwo667.6), WWV-Bare, Sciatica (724.3) [facility] Refill [...]
--- OUTSIDE RECORDS SUMMARY | 2018-10-28 14:06 | XMS RPT_ITS | Continuity of Care Document ---
:1935 Author Organization [facility] Address [address] 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 MRI done and went to [facility]. 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 wheezing is better. echo, [...] qd (137 MCG/SPRAY) Active CALCIUM + D, 342-748XC-UADP (Oral Tablet) 1 qd for 0 days Refills: 0 Ordered:24-Jun-2009 Angelique Miller CENTRUM SILVER (Oral Tablet) 1 qd for 0 days Refills: 0 Ordered:24-Jun-2009 Angelique Miller HydroCHLOROthiazide 25 MG Oral Tablet 1 (one) Tablet QD for 30 days Quantity: 30 {Tablet} Refills: 6 Ordered:31-Jul-2018 Nguyen Santana CNP, CNP, Mary E Start : 31-Jul-2018 Active Losartan Potassium 50 MG Oral Tablet 1 (one) Tablet daily for 0 days Quantity: 30 {Tablet} Refills: 11 Ordered:11-Jun-2018 Max GIVENS, Nguyen Dover CNP Start : 11-Jun-2018 Active Norvasc 2.5 MG Oral Tablet 1 Tablet daily for 30 days Quantity: 30 {Tablet} Refills: 3 Ordered:30-Aug-2018 Max GIVENS, Nguyen Najera CNP, Nguyen Briones Start : 30-Aug-2018 Active Premarin 0.625 MG/GM Vaginal Cream uad [...] Quantity: 30 {Tablet} Refills: 0 Ordered:19-Dec-2017 Long HUMIDIFIER MAINTENANCE WORKER, Ariana L Start : 15-Sep-2017 End [...] : 10-Nov-2017 End : 19-Dec-2017 Inactive ZOSTAVAX, 08077KTR/0.65ML (Subcutaneous Solution Reconstituted) 1 For Solution once [...] : 15-Sep-2015 End : 15-Sep-2015 Discontinued Creon 73511 UNIT Oral Capsule Delayed Release Particles 2 [...] good saw [facility]. [facility] Status: Inactive as of 19-Mar-2015 [...] Result: Comments: See Note; NOTES: [facility] [address] [place] [address] OFFICE VISIT Date of Service: 03/31/18 MR#: [id number] Acct: [id number] Name: GAYATRI NAQVI Rep #: [id number] : 1935 Provider: RHODA Cisse Age/Sex: 82/F Location: [facility] Status: Signed Intake Vital Signs03/31/18 Height 5 [...] Medications New: nitrofurantoin monohyd/m-cryst 100 mg (Macrobid) acuxyo011 mg PO Q12H 7 days UTI N39.0 [...] Visit Report Result: Comments: See Note; NOTES: [facility] [place] [address] OFFICE VISIT Date of Service: 02/28/18 MR#: [id number] Acct: [id number] Name: GAYATRI NAQVI Rep #: [id number] : 1935 Provider: Romel Silverio MD Age/Sex: 82/F Location: [facility] Status: Signed HPI HPI Details: GAYATRI [...] Signature: Date (if applicable) CC: Nguyen Santana NURSING UNIT MANAGER; Dayna Byrne MD 09-Feb-2018 Urgent Care Visit Report Result: Comments: See Note; NOTES: [facility] [address] [place] [address] OFFICE VISIT Date of Service: 02/09/18 MR#: [id number] Acct: [id number] Name: GAYATRI NAQVI Rep #: [id number] : 1935 Provider: Anjel DUONG Age/Sex: 82/F Location: [facility] Status: Signed Intake Vital Signs02/09/18 Height 5 [...] Result: Comments: See Note; NOTES: [facility] [address] [place] [address] OFFICE VISIT Date of Service: 01/26/18 MR#: [id number] Acct: [id number] Name: GAYATRI NAQVI Rep #: [id number] : 1935 Provider: Anjel DUONG Age/Sex: 82/F Location: [facility] Status: Signed Intake Vital Signs01/26/18 Height 5 [...] changes Exam Const General: cooperative, healthy appearing [facility] Head: normal to inspection Ears: hearing [...] the above. This note was generated with Showkickeration software. It may contain incorrect words, spelling, [...] Only (Routine) Result: Comments: See Note; NOTES: [facility] Imaging Services [address] [place] [address] Lower Ext Joint Only (Routine) MR#: [id number] Acct: [id number] Name: GAYATRI NAQVI Rep # : [id number] : 1935 F 81 From: Gianluca Camarena MD PCP: Nguyen Santana Status: REG CLI Study: Lower Ext Joint Only (Routine) Date of Exam: 07/13/17 Exam# [id number] Ordering Dr: Nguyen Santana STUDY: MRI RIGHT [...] , Service support , CC: Nguyen Santana Diver Helper: Signed 07-Jul-2017 PT D/C Summary (1) Result: Comments: See Note; NOTES: [facility] [address] [place] [address]. [address] [place] [address] Fax REHABILITATION SERVICES DISCHAR GE SUMMARY MR#: [id number] Acct: [id number] Name: GAYATRI NAQVI Rep #: [id number] : 1935 81 From: Levon Jay DPT, OCS, CSCS Referring DrLizzy: Nguyen Santana Status: REG RCR Insurance: [employer] C[employer] MEDICARE HP - PT D/C Summary [...] degeneratwed medial knee. MRI is approp. Medial valve mechanic brace may be approp after MRI if other options not available(injection, Ortho) If there are questions or concerns regarding this patient's physical therapy, please feel free to call me at [phone]. Thank you for the referral of this patient. Sincerely, Levon Jay DPT, DORA <Electronically signed by Levon Jay DPT, PITO, CSCS> 07/07/17 0642 CC: Nguyen Santana EBG Signed 21-Jun-2017 Inital Evaluation (1) - PT Result: Comments: See Note; NOTES: [facility] [address] [place] [address]. [address] [place] [address] Fax REHABILITATION SERVICES INITIAL EVALUATION MR#: [id number] Acct: [id number] Name: GAYATRI NAQVI Rep #: [id number] [...] to be FAXED BACK to us at [phone] for Medicare purposes. Please let me know if there are questions or concerns regarding this plan of care. Physician Signature: Date: & amp;#60;Electronically signed by Levon Jay DPT, OCS, CSCS> 06/21/17 0736 CC: Nguyen Santana EBG Signed For Medicare only, by signing this I certify the plan of care . Physicians Signature Date 06-Jun-2017 Discharge Instruction Result: Comments: See Note; NOTES: [facility] Medical Records Department [address] [place] [address] Discharge Instruction 06/06/17 2317 MR#: [id number] Acct: [id number] Name: MONET NAQVI Rep #: [id number] : 1935 81 From: Po Herrera MD [...] your Primary Care Provider. Call [facility] ([phone]) or rep ort to the closest Emergency Room. Call 911 if necessary. 06/06/172317 <Electronically signed by Po Herrera MD> Date Po Herrera MD Cosigner Signature (If Indicated): Date CC: Nguyen Santana 06-Jun-2017 Emergency Department Summary Result: Comments: See Note; NOTES: [facility] Medical Records Department [address] [place] [address] Emergency Department Summary 06/06/172311 MR#: [id number] Acct: [id number] Name: GAYATRI NAQVI Rep #: [id number] : 1935 81 From: Po Herrera MD [...] Primary Care Provider. Call [facility] [place] ([phone]) or report to the closest Emergency Room. Call 911 if necessary. 06/06/17 2317 <Electronically signed by Po Herrera MD> Date Po Herrera MD Cosigner Signature (If Indicated): Date CC: Nguyen Brittanyadrien 06-Jun-2017 Knee 4 or More Views Result: Comments: See Note; NOTES: [facility] Imaging Services [address] [place] [address] Knee 4 or More Views MR#: [id number] Acct: [id number] Name: DRISSGAYATRI Rep #: [id number] : 1935 F 81 From: Stephanie Diaz MD PCP: Nguyen Santana Status: REG ER Study: Knee 4 or More Views Date of Exam: 06/06/17 Exam# [id number] Ordering Dr: Po eHrrera MD STUDY: X-RAY - RIGHT KNEE REASON [...] Stephanie Diaz MD at 23:01 EDT Tel [phone], Service support , CC: Nguyen Santana; Po Herrera MD Diver Helper: Signed 06-Jun-2017 Liver Result: Comments: See Note; NOTES: [facility] Imaging Services [address] [place] [address] Liver MR#: [id number] Acct: [id number] Name: GAYATRI NAQVI Rep #: [id number] : [birth year] F 81 From: Rogelio Kumar MD PCP: Nguyen Santana Status: REG CLI Study: Liver Date of Exam: 06/06/17 Exam# [id number] Ordering Dr: Nguyen Santana STUDY: ABDOMINAL ULTRASOUND - RIGHT UPPER QUADRANT R CUHCK FOR VISIT: Female, 81 years old. Liver [...] Kumar MD at 11:47 EDT Tel [phone], Service support , CC: Nguyen Santana Diver Helper: Signed 27-Mar-2017 Echocardiogram Complete Result: Comments: See Note; NOTES: [facility] Cardiovascular Services [address] [place] [address] Echo Complete 03/24/17 08 MR#: [id number] Acct: [id number] Name: GAYATRI NAQVI ep #: [id number] : 1935 81 From: Romel Silverio MD Attending Dr: Romel Silverio MD Status: REG I Ordering Dr: Romel Silverio MD Date: 03/24/17 [facility] Sex: F C Admitted: Reason For Study: [...] Dictated: 03/24/17 0 822 Date Transcribed: 03/24/171832 Diver Helper: Signed 24-Mar-2017 Nuclear Stress Test - Treadmil Result: Comments: See Note; NOTES: [facility] Imaging Services [address] [place], [place] [address] [place] [address] Howardgeorge 4d Nuclear Stress Test - Treadmil MR#: [id number] Acct: [id number] Name: JULIUS NAQVI Rep #: [id number] : 1935 81 From: Romel Silverio MD [...] 71%. Romel Silverio MD T: NTS JOB: [id number] 03/25/17 0927 <Electronically signed by Romel Silverio MD> Date Romel Silverio MD CC: Nguyen Santana; Romel Silverio MD Date Dictated: 03/24/17 1146 Date Transcribed: 03/24/17 1146 Diver Helper: Signed 03-Mar-2017 Chest PA and Lateral Result: Comments: See Note; NOTES: [facility] Imaging Services [address] [place] [address] Verdana 4d Chest PA and Lateral MR#: [id number] Acct: [id number] Name: GAYATRI NAQVI Rep #: [id number] : 1935 F 81 From: Rogelio Kumar MD PCP: Nguyen Santana Status: REG CLI Study: Chest PA and Lateral Date of Exam: 03/03/17 Exam# [id number] Ordering Dr: Romel Silverio MD STUDY : [...] Kumar MD at 13:42 EDT Tel [phone], Service support , CC: Nguyen Santana; Romel Silverio MD Diver Helper: Signed 12-Dec-2016 Abdomen/Pelvis without Cont Result: Comments: See Note; NOTES: [facility] Imaging Services [address] [place] [address] Verdana 4d Abdomen/Pelvis without Cont MR#: [id number] Acct: [id number] Name: GAYATRI NAQVI Rep #: [id number] : 1935 F 81 From: Philipp Moody MD PCP: Nguyen Santana Status: REG CLI Study: Abdomen/Pelvis without Cont Date of Exam: 12/12/16 Exam# [id number] Ordering Dr: Nguyen Santana JULIANN DY: CT [...] of the osseous structures. ORD ER #: [id number] CT/Abdomen/Pelvis without Cont IMPRESSION: Fatty liver. There are multiple colonic diverticula consistent with diverticulosis. 21mm hypodense lesion in the inferior right lobe of the l iver. This is incompletely evaluated and on contrast enhanced study. Other findings as above. Electronically Signed: Philipp Moody MD at 22:28 EDT , Service support , CC: Nguyen Santana Diver Helper: Signed 22-Sep-2016 Upper Ext Joint Only(Routine) Result: Comments: See Note; NOTES: [facility] Imaging Services [address] [place] [address] Verda 4d Upper Ext Joint Only(Routine) MR#: [id number] Acct: [id number] Name: BERNICE NAQVI JOSEPH Briones Rep #: [id number] : 1935 F 80 From: Emmanuel Guido MD PCP: Nguyen Santana Status: REG CLI Study: Upper Ext Joint Only(Routine) Date of Exam: 09/22/16 Exam# [id number] Ordering Dr: Adilene Byrd DO STUDY: MRI [...] MD at 17:06 EST , Service support [phone], CC: Nguyen Santana; Sonia Byrd DO Diver Helper: Signed 08-Sep-2016 Shoulder min 2 Views Result: Comments: See Note; NOTES: [facility] Imaging Services [address] [place] [address] Verdana 4d Shoulder min 2 Views MR#: [id number] Acct: [id number] Name: GAYATRI NAQVI Rep #: [id number] : 1935 F 80 From: Emmanuel Guido MD PCP: Nguyen Santana Status: REG CLI Study: Shoulder min 2 Views Date of Exam: 09/08/16 Exam# [id number] Ordering Dr: Sonia Byrd DO STUDY: X-RA [...] at 11:28 EST Tel , Service support [phone], CC: Nguyen Santana; Sonia Byrd DO Diver Helper: Signed 06-Sep-2016 Dexa Bone Density Study (HP) Result: Comments: See Note; NOTES: [facility] Imaging Services [address] [place] [address] Verdana 4d Dexa Bone Density Study (HP) MR#: [id number] Acct: [id number] Name: LIDA NAQVI Rep #: [id number] : 1935 F 80 From: Rogelio Kumar MD PCP: Nguyen Santana Status: REG CLI Study: Dexa Bone Density Study (HP) Date of Exam: 09/06/16 Exam# [id number] Ordering Dr: Joi Santana STUDY: DUAL ENERGY [...] Rogelio Kumar MD at 13:43 EST Tel [phone], Service support [phone], CC: Nguyen Santana Diver Helper: Signed 24-May-2016 PT D/C Summary (1) Result: Comments: See Note; NOTES: [facility] [address] [place] [address]. [address] [place] [address] Fax REHABILITATION SERVICES DISCHA RGE SUMMARY MR#: [id number] Acct: [id number] Name: GAYATRI NAQVI Rep #: [id number] [...] please feel free to call me at [phone]. Thank you for the referral of this patient. Sincerely, Norma Thomas <Electronically signed by Norma Thomas PT, MDT> 05/24/16 1345 CC: George Bueno MD ; Edson Franks DO TAPAN Signed 18-Apr-2016 Re-Evaluation - PT (1) Result: Comments: See Note; NOTES: [facility] [address] [place] [address]. [address] [place], [place] [address] Fax REEVALUATION / [facility] [address] PHYSICAL THERAPY MR#: [id number] Acct: [id number] Name: GAYATRI NAQVI Rep #: [id number] : 1935 80 From: Norma Thomas PT, [...] do not hesitate to contact me at [phone] by phone or if you have que stions or concerns regarding this new plan of care! Sincerely, Norma Thomas <Electronically signed by Norma Thomas PT, CertLizzy MDT> 04/18/16 1306 CC: George Bueno MD; Edson mead DO TAPAN Signed For Medicare only, by signing this I certify the plan of care. Physicians Signature Date 16-Mar-2016 Inital Evaluation (1) - PT Result: Comments: See Note; NOTES: [facility] [address] [place] [address]. [address] [place] [address] Fax REHABILITATION RVICES INITIAL EVALUATION MR#: [id number] Acct: [id number] Name: GAYATRI NAQVI Rep #: [id number] : 1935 80 From: Norma Thomas PT, [...] to be FAXED BACK to us at [phone] for Medicare purposes. Please let me know if there are questions or concerns regarding this plan of care. Physician Signature:__ Date: <Electronically signed by Norma Thomas PT, Cert. MDT> 03/16/16 1323 CC: George Bueno MD; Edson Franks DO TAPAN Signed For Medicare only, by signing this I certify the plan of care. Physicians Signature Date 06-Mar-2016 Discharge Instruction Result: Comments: See Note; NOTES: [facility] Medical Records Department [address] [place] [address] Discharge Instruction 03/04/16 1919 MR#: [id number] Acct: [id number] Name: GAYATRI NAQVI Rep #: [id number] : 1935 80 From: Pastor Mccain MD [...] problems, contact your doctor. Call [facility] ([phone]) or report to the closest Emergency Room. Call 911 if necessary. 03/06/16 0704 <Electronical ly signed by Pastor Mccain MD> Date Pastor Mccain MD Cosigner Signature (If Indicated): Date CC: George Bueno MD 06-Mar-2016 Emergency Department Summary Result: Comments: See Note; NOTES: [facility] Records Department [address] [place] [address] Emergency Department Summary MR#: [id number] Acct: [id number] Name: GAYATRI NAQVI Rep #: [id number] : 1935 80 From: Pastor Mccain MD [...] Khloe [place]illa C: George Alba MD T: [facility] B: [id number] 03/06/16 0704 <Electronically signed by Pastor Mccain MD> Date Pastor Mccain MD Cosigner Signature (If Indicated): Date CC: George Bueno MD; Wesley Alba MD Date Dictated: 03/05/161121 Date Transcribed: 03/05/161121 Diver Helper: Signed 04-Mar-2016 Shoulder One View Result: Comments: See Note; NOTES: [facility] Imaging Services [address] [place] [address] Verdana 4d Shoulder One View MR#: [id number] Acct: [id number] Name: STEPHANIE NAQVI Anselmo Rep #: [id number] : 1935 F 80 From: Bernadette Daniel MD PCP: George Bueno MD Status: REG ER Study: Shoulder One View Date of Exam: 03/04/16 Exam# [id number] Ordering Dr: Pastor Mccain MD STUDY: X-RAY [...] MD at 19:00 EDT , Service support [phone], RAD/Shoulder One View IMPRESSION: Anatomic relocation of the left glenohume ral joint without fracture deformity. Electronically Signed: Bernadette Daniel MD at 19:00 EDT , Service support [phone], CC: George Xiao i, MD; Pastor Mccain MD Diver Helper: Signed 04-Mar-2016 Hip 2-3 Views with Pelvis Result: Comments: See Note; NOTES: [facility] Imaging Services [address] [place] [address] Verdana 4d Hip 2-3 Views with Pelvis MR#: [id number] Acct: [id number] Name: GAYATRI ROSA Rep #: [id number] : 1935 F 80 From: Bernadette Daniel MD PCP: George Bueno MD Status: REG ER Study: Hip 2-3 Views with Pelvis Date of Exam: 03/04/16 Exam# [id number] Ordering Dr: Pastor Mccain MD STUDY: X-RAY [...] MD at 17:17 EDT , Service support [phone], RAD/Hip 2-3 Views with Pelvis IMPRESSION: Normal x-ray examination of the pelvis and hip. Chad quarles Signed: Bernadette Daniel MD at 17:17 EDT , Service support [phone], CC: George Bueno MD; Pastor Mccain MD Diver Helper: Signed 04-Mar-2016 Shoulder min 2 Views Result: Comments: See Note; NOTES: [facility] Imaging Services [address] [place] [address] Verda 4d Shoulder min 2 Views MR#: [id number] Acct: [id number] Name: Mayra NAQVI Rep #: [id number] : 1935 F 80 From: Bernadette Daniel MD PCP: George Bueno MD Status: REG ER Study: Shoulder min 2 Views Date of Exam: 03/04/16 Exam# [id number] Ordering Dr: Zach Mccain MD STUDY: X-RAY [...] MD at 17:24 EDT , Service support [phone], Fax RAD/Shoulder min 2 Views IMPRESSION: Complete anterior dislocation of the left shoulder without identified fracture. Electronically Signed: Bernadette Daniel MD at 17:24 EDT , Service support [phone], CC: George Bueno MD; Pastor Mccain MD Diver Helper: Signed 04-Mar-2016 Wrist min 3 Views Result: Comments: See Note; NOTES: [facility] Imaging Services [address] [place] [address] Verdana 4d Wrist min 3 Views MR#: [id number] Acct: [id number] Name: STEPHANIE NAQVI Rep #: [id number] : 1935 F 80 From: Bernadette Daniel MD PCP: George Bueno MD Status: REG ER Study: Wrist min 3 Views Date of Exam: 03/04/16 Exam# [id number] Ordering Dr: Pastor Mccain MD STUDY: X-RAY [...] at 17:12 EDT , Se rvice support [phone], RAD/Wrist min 3 Views IMPRESSION: Negative for fracture or dislocation. Electronically Signed: Bernadette Daniel MD at 17:12 EDT , Service support [phone], CC: George Bueno MD; Pastor Mccain MD Diver Helper: Signed 24-Mar-2015 Upper Ext Joint Only(Routine) Result: Comments: See Note; NOTES: [facility] Imaging Services [address] [place] [address] MRI Report MR#: [id number] Acct: [id number] Name: GAYATRI NAQVI Rep #: [id number] : 1935 F 79 From: Gianluca Camarena MD PCP: George Bueno MD Status: REG CLI Study: Upper Ext Joint Only(Routine) Date of Exam: 03/24/15 Exam# [id number] Ordering Dr: George Bueno MD STUDY: MRI [...] at 15:58 EDT Tel , Service support [phone], CC: George Bueno MD Diver Helper: Signed 18-Oct-2014 Emergency Department Summary Result: Comments: See Note; NOTES: [facility] Medical Records Department [address] [place] [address] Emergency Department Summary MR#: [id number] Acct: [id number] Name: DRISSMayra Rep #: [id number] : 1935 78 From: Stephanie Andersen MD [...] injury. Stephanie Andersen MD T: NTS JOB: [id number] 10/18/14 160 6 <Electronically signed by Stephanie Andersen MD> Date Stephanie Andersen MD CC: George Bueno MD Date Dictated: 10/18/14 1050 Date Transcribed: 10/18/14 105 Diver Helper: Signed 18-Oct-2014 Discharge Instruction Result: Comments: See Note; NOTES: [facility] Medical Records Department [address] [place] [address] Discharge Instruction 10/18/14 1040 MR#: [id number] Acct: [id number] Name: GAYATRI NAQVI Rep #: [id number] : 1935 78 From: Stephanie Andersen MD [...] without Contrast Result: Comments: See Note; NOTES: [facility] Imaging Services [address] [place] [address] CAT Scan Report MR#: [id number] Acct: [id number] Name: GAYATRI NAQVI Rep #: [id number] : 1935 F 78 From: Jacklyn Vázquez MD PCP: George Bueno MD Status: REG ER Study: Brain/Head without Contrast Date of Exam: 10/18/14 Exam# [id number] Ordering Dr: Stephanie Andersen MD STUDY: C [...] MD at 10:34 EST , Service support [phone], CC: George Bueno MD; Stephanie Andersen MD Diver Helper: Signed 18-Oct-2014 Spine Cervical without Contras Result: Comments: See Note; NOTES: [facility] Imaging Services [address] [place] [address] CAT Scan Report MR#: [id number] Acct: [id number] Name: GAYATRI NAQVI Rep #: [id number] : 1935 F 78 From: Jacklyn Vázquez MD PCP: George Bueno MD Status: REG ER Study: Spine Cervical without Contras Date of Exam: 10/18/14 Exam# [id number] Ordering Dr: Stephanie Andersen MD STUDY : [...] MD at 10:45 EST , Service support [phone], CC: George Bueno MD ; Stephanie Andersen MD Diver Helper: Signed 13-Aug-2014 Bilat Scrn Digital & CAD Result: Comments: See Note; NOTES: [facility] Imaging Services [address] [place] [address] Breast Imaging Report MR#: [id number] Acct: [id number] Name: GAYATRI NAQVI Rep #: [id number] : 1935 F 78 From: Rogelio Kumar MD PCP: George Bueno MD Status: REG CLI Exam# [id number] Ordering Dr: George Bueno MD MAMMOGRAPHY - [...] Kumar MD at 10: 39 EST Tel [phone], Service support [phone], CC: George Bueno MD Diver Helper: Signed 13-Aug-2014 Dexa Bone Density Study (HP) Result: Comments: See Note; NOTES: [facility] Imaging Services [address] [place] [address] Bone Density Report MR#: [id number] Acct: [id number] Name: GAYATRI NAQVI Rep #: [id number] : 1935 F 78 From: Rogelio Kumar MD PCP: George Bueno MD Status: REG CLI Study: Dexa Bone Density Study () Date of Exam: 08/13/14 Exam# [id number] Ordering Dr: George Bueno MD STUDY: DUAL [...] Rogelio Kumar MD at 13:55 EST Tel [phone], Service support [phone], CC: George Bueno MD Diver Helper: Signed 12-Aug-2013 Bilat Scrn Digital & CAD Result: Comments: See Note; NOTES: [facility] Imaging Services [address] [place] [address] Breast Imaging Report MR#: [id number] Acct: [id number] Name: GAYATRI NAQVI Rep #: [id number] : 1935 F 77 From: Rogelio Kumar MD PCP: George Bueno MD Status: REG I Exam# [id number] Ordering Dr: George Bueno MD MAMMOGRAPHY - [...] August 12 013 at 11:28:57 AM EST [phone] Electronically Signed GP/GP If you are the referring physician and would like to consult with the radiologist who provided this interpretation, please contact Rogelio Kumar M.D. at [phone]. If this radiologist is unavailable, you will be directed to another radiologist to assist. If you are a patient with a question regarding this report, pleas e contact your referring physician directly. Professional Interpretation Provided By: [employer], Phone , These documents contain legally protected [...] of these documents. CC: George Bueno MD Diver Helper: Signed Immunization Name Dates Details Zoster (shingles) [...] Area Calculated 1.66 m2 :23 Comments: visual bkghxa-PW-45/40, OS-20/40, B/L-20/40 Temperature 98.1 f Comments: Method: [...] 0.00 cm Results Date Description Value Details :13 Microscopic Examination Comments: PATIENT NOT FASTINGPERFORMED BY: LATA [facility] [id number] [facility] [id number] Bacteria Few (Normal) Epithelial Cells (non renal) None seen {/hpf} (Normal) Range: 0 - 10 RBC None seen {/hpf} (Normal) Range: 0 - 2 WBC 0-5 {/hpf} (Normal) Range: 0 - 5 47-Jhm-909741:13 URINALYSIS, W/ MICRO (02617) Comments: PATIENT NOT FASTINGPERFORMED BY: LabCoHackettstown Medical CenterEigobf3846 [facility] [id number] Microscopic Examination See below: (Normal) Comments: Microscopic was indicated and was performed. Microscopic Examination MICRON (Normal) Comments: Microscopic follows if indicated. Nitrite, Urine Negative (Normal) Urobilinogen,Semi-Qn 0.2 mg/dL (Normal) Range: 0.2-1.0 Bilirubin Negative (Normal) Occult Blood Negative (Normal) Ketones Negative (Normal) Glucose Negative (Normal) Protein Negative (Normal) WBC Esterase Negative (Normal) Appearance Clear (Normal) Urine-Color Yellow (Normal) pH 7.0 (Normal) Range: 5.0-7.5 Specific [place] 1.009 (Normal) Range: 1.005-1.030 34-Bde-117209:57 Metabolic Panel, Comprehensive Comments: PATIENT NOT FASTINGPERFORMED BY: [facility]CoH[facility]stown [facility] CenterVxjbap8873 [facility] [id number] (24884) ALT (SGPT) 28 [iU]/L (Normal) Range: 0-32 [...] 8-27 Glucose 90 mg/dL (Normal) Range: 65-99 :57 TSH (38976) Comments: PATIENT NOT FASTINGPERFORMED BY: [facility]CoH[facility] CenterFvditg5638 [facility] [id number] TSH 1.450 {uIU/mL} (Normal) Range: 0.450-4.500 :57 CBC, Platelets & Auto Diff Comments: PATIENT NOT FASTINGPERFORMED BY: [facility]CoH[facility] CenterStwqkc6522 [facility] [id number] (96374) Immature Grans (Abs) 0.0 {x10E3/uL} (Normal) Range: [...] 3.77-5.28 WBC 7.8 {x10E3/uL} (Normal) Range: 3.4-10.8 98-Ttl-917708:00 URINE CELINE CULTURE-IDENTIFICATN Comments: PATIENT NOT FASTINGPERFORMED BY: LATA [facility] Mfjekm9591 [place] [id number] Information: SRC:UC (76641) Result 1 MUG (Normal) Comments: Mixed urogenital flora10,000-25,000 colony forming units per mL Urine Final report (Normal) Culture,Comprehensive 14-Fkh-112441:21 Urinalysis, Office (06006) UA - LEUKOCYTE ESTERASE Negative (Normal) UA - NITRITE Negative (Normal) URINE UROBILINGN JOSÉ MIGUEL TIMED Normal mg/dL (Normal) UA - PROTEIN Negative mg/dL (Normal) UA - PH 7 (Normal) UA - BLOOD Negative (Normal) UA - SPECIFIC GRAVITY 1.010 (Normal) UA - KETONES Moderate mg/dL (Normal) UA - BILIRUBIN Negative (Normal) UA - GLUCOSE Negative (Normal) 07-Qjg-07974:30 Culture, Urine Comments: [facility] Egeudqandp8032 [facility] [address] [place], [place], [id number] CUUR See Note (Normal) Comments: Urine CultureORGANISM 1: Mixed Gram Positive OrganismsColony Count 11,000-25,000MIX CULTURE Mixed contaminants. Submit a new specimen if indicated. :30 Urinalysis, Complete Comments: How was Urine Obtained? CLEAN [facility] Zdyjqtloku8358 [facility] [address] [place], [place], [id number] MUCUS, URINE 0 SEEN {/hpf} (Normal) BACTERIA [...] (Normal) CLARITY Clear (Normal) COLOR Yellow (Normal) 48-Qhu-123323:39 Culture, Urine Comments: [facility] [address] [place], [place], [id number] CUUR See Note (Normal) Comments: Urine CultureBelow infection level. ORGANISM 1: Mixed Gram Positive OrganismsColony Count 1000-10,000 52-Vpw-164048:39 Urinalysis, Complete Comments: How was Urine Obtained? 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 [place], [place], [phone] MUCUS, URINE 0 SEEN {/hpf} (Normal) BACTERIA [...] (Normal) CLARITY Clear (Normal) COLOR Yellow (Normal) 42-Ycw-77340:05 ZJNVC-PBCSRCYLCEG-PQVBW (02322) Comments: PATIENT WAS FASTINGPERFORMED BY: LabCoH[facility]stown [facility] CenterYhiizt0493 [facility] [id number] AFP, Serum, Tumor Marker 3.0 ng/mL (Normal) Range: 0.0-8.3 Comments: ENDOGENX ECLIA methodology :05 TSH (THYROID STIMULATING Comments: PATIENT WAS FASTINGPERFORMED BY: [facility] [id number] HORMONE) (77461) TSH 2.890 {uIU/mL} (Normal) Range: 0.450-4.500 :05 LIPID PANEL (75660) Comments: PATIENT WAS FASTINGPERFORMED BY: [facility] [id number] LDL/HDL Ratio 1.9 {ratio_units} (Normal) Range: 0.0-3.2 [...] Auto Diff Comments: PATIENT WAS FASTINGPERFORMED BY: [place] 1238970 [facility] [id number] (50755) Immature Grans (Abs) 0.0 {x10E3/uL} (Normal) Range: [...] 3.77-5.28 WBC 6.4 {x10E3/uL} (Normal) Range: 3.4-10.8 61-Fwi-48627:05 Metabolic Panel, Comprehensive Comments: PATIENT WAS FASTINGPERFORMED BY: LabCoH[facility]stown Medical CenterTprvat4348 [facility] [id number] (77606) ALT (SGPT) 31 [iU]/L (Normal) Range: 0-32 [...] mg/dL (Normal) Range: 65-99 :49 Rapid Flu (46766 x 2) Influenza A Ag Negative (Normal) :59 THROAT CULTURE (95147) Comments: PATIENT NOT FASTINGPERFORMED BY: [facility] [id number] Information: SRC:TH Result 1 RRF (Normal) Comments: Routine respiratory graeme Upper Respiratory Culture Final report (Normal) :54 Rapid Strep Test, Office (33896) Rapid Strep Test, Office Negative (Normal) :47 HgA1C , Office (06444) HgA1C , Office 5.8 % (Normal) Range: 4.6 - 7.1 :53 HEPATITIS PANEL (18527) Comments: today; PATIENT NOT FASTINGPERFORMED BY: [employer]70 [address] [facility] [id number] Hep C Virus Ab <0.1 {s/co_ratio} (Normal) Range: 0.0-0.9 Comments: Negative: < 0.8 Indeterminate: 0.8 - 0.9 Positive: > 0.9 . The CDC recommends that a positive HCV antibody result be followed up with a HCV Nucleic Acid Amplification test (395324). Hep B Core Ab, IgM Negative (Normal) HBsAg Screen Negative (Normal) Hep A Ab, IgM Negative (Normal) :53 HEPATIC FUNCTION PANEL Comments: today; PATIENT NOT FASTINGPERFORMED BY: [facility] [id number] (53451) ALT (SGPT) 29 [iU]/L (Normal) Range: 0-32 AST (SGOT) 30 [iU]/L (Normal) Range: 0-40 Alkaline Phosphatase, S 53 [iU]/L (Normal) Range: 39-117 Bilirubin, Direct 0.18 mg/dL (Normal) Range: 0.00-0.40 Bilirubin, Total 0.5 mg/dL (Normal) Range: 0.0-1.2 Albumin, Serum 4.7 g/dL (Normal) Range: 3.5-4.7 Protein, Total, Serum 6.5 g/dL (Normal) Range: 6.0-8.5 0-Fwi-974434:53 DJMZC-VLKGLTUDRZP-RJGRS (66366) Comments: today; PATIENT NOT FASTINGPERFORMED BY: LabCoH[facility]stown [facility] CenterWnkocf9915 [facility] [id number] AFP, Serum, Tumor Marker 3.0 ng/mL (Normal) Range: 0.0-8.3 Comments: Kristi ECLIA methodology 62-Idp-625558:55 Basic Metabolic Profile (BMP) Comments: Order Date: 03/01/17Order Info: 0667-1 - *BMPOrder Info: 3026-2 - *T4 (Total)Comments: Reason:Order Info: 3016-3 - *TSHComments: Reason:[facility] [address] [place], [address] ; cardio GAP 6 (Normal) Range: 5-15 [...] 7-18 GLU 96 mg/dL (Normal) Range: 70-110 46-Mjo-722652:55 CBC-Complete Blood Cnt No Diff Comments: Order Date: 03/01/17Order Info: 03015-4 - *CBC without DiffComments: Reason:[facility] Erolaeatzx[address] [place], [phone] MPV 9.6 fL (Normal) Range: 6.2-12.0 PLT [...] 4.2-5.4 WBC 7.2 K/mm3 (Normal) Range: 4.4-11.0 :55 T4 Total, Thyroxin Comments: Order Date: 03/01/17Order Info: 0667-1 - *BMPOrder Info: 3026-2 - *T4 (Total)Comments: Reason:Order Info: 3016-3 - *TSHComments: Reason:[facility] [address] [place], [phone] T4 THYROXIN 9.3 ug/dL (Normal) Range: 4.8-13.9 91-Ijv-835375:55 Thyroid Stim Hormone (TSH) Comments: Order Date: 03/01/17Order Info: 0667-1 - *BMPOrder Info: 3026-2 - *T4 (Total)Comments: Reason:Order Info: 3016-3 - *TSHComments: Reason:[facility] F[address]howfnijy[address] [place], [id number] TSH 1.33 {uIU/mL} (Normal) Range: 0.358-3.74 0-Vcf-806821:55 Urinalysis, Office (25729) UA - LEUKOCYTE ESTERASE Negative (Normal) UA - NITRITE Negative (Normal) URINE UROBILINGN JOSÉ MIGUEL TIMED Normal mg/dL (Normal) UA - PROTEIN Negative mg/dL (Normal) UA - PH 7.5 (Normal) UA - BLOOD Negative (Normal) UA - SPECIFIC GRAVITY 1.020 (Normal) UA - KETONES Negative mg/dL (Normal) UA - BILIRUBIN Negative (Normal) UA - GLUCOSE Negative (Normal) 9-Cjc-165722:17 URINE CELINE CULTURE-JOSÉ MIGUEL COL Comments: PATIENT NOT FASTINGPERFORMED BY: Henable Lontra [facility] [id number] Information: SRC:UC COUNT (72715) Result 1 MUG (Normal) Comments: Mixed urogenital flora25,000-50,000 colony forming units per mL Urine Final report (Normal) Culture,Comprehensive 7-Ahv-547050:05 Urinalysis, Office (62086) UA - LEUKOCYTE ESTERASE Small (Normal) UA - NITRITE Negative (Normal) URINE UROBILINGN JOSÉ MIGUEL TIMED Normal mg/dL (Normal) UA - PROTEIN Negative mg/dL (Normal) UA - PH 7 (Normal) UA - BLOOD Negative (Normal) UA - SPECIFIC GRAVITY 1.015 (Normal) UA - KETONES Small mg/dL (Normal) UA - BILIRUBIN Small (Normal) UA - GLUCOSE Negative (Normal) 07-Nov-20160:00 Culture, Urine Comments: [facility] [address] [place], [address] CUUR See Note (Normal) Comments: Urine CultureCulture exhibits no growth. :45 TSH (80339) Comments: PATIENT WAS FASTINGPERFORMED BY: Henable Qotlpv0616 [facility] [id number] TSH 2.950 {uIU/mL} (Normal) Range: 0.450-4.500 :45 Lipid Panel (74905) Comments: PATIENT WAS FASTINGPERFORMED BY: HenableHackettstown Medical CenterYeuawh1843 [facility] [id number]; OV 08/23 LDL/HDL Ratio 2.2 {ratio_units} (Normal) [...] Cholesterol, Total 231 mg/dL (Abnormal) Range: 100-199 87-Ocn-53320:45 CBC, Platelets & Auto Diff Comments: PATIENT WAS FASTINGPERFORMED BY: LabCoHackettstown Medical CenterXfxhzv1642 [facility] [id number] (43429) Immature Grans (Abs) 0.0 {x10E3/uL} (Normal) Range: [...] 3.77-5.28 WBC 6.5 {x10E3/uL} (Normal) Range: 3.4-10.8 :45 Metabolic Panel, Comprehensive Comments: PATIENT WAS FASTINGPERFORMED BY: Henable Qsbamw3979 [facility] [id number] (01403) ALT (SGPT) 30 [iU]/L (Normal) Range: 0-32 [...] Glucose, Serum 99 mg/dL (Normal) Range: 65-99 6-Quy-702575:00 MICROALBUMIN: CREATININE RATIO Comments: PATIENT WAS FASTINGPERFORMED BY: HenableNor-Lea General HospitalIqzljp0823 [facility] [id number] (26412) AND (31165) Microalb/Creat Ratio 9.2 {mg/g_creat} (Normal) Range: 0.0-30.0 Microalbumin, Urine 28.4 ug/mL (Normal) Creatinine, Urine 307.2 mg/dL (Normal) :00 METABOLIC PANEL, COMPREHENSIVE Comments: PATIENT WAS FASTINGPERFORMED BY: Henable Eqssus1117 [facility] [id number] (27660) ALT (SGPT) 23 [iU]/L (Normal) Range: 0-32 [...] Glucose, Serum 92 mg/dL (Normal) Range: 65-99 :00 LIPID PANEL (22898) Comments: PATIENT WAS FASTINGPERFORMED BY: HenableNor-Lea General HospitalFjbijh2317 [facility] [id number]; fu 6-13 with [facility] LDL/HDL Ratio 1.9 {ratio_units} (Normal) Range: 0.0-3.2 [...] Cholesterol, Total 211 mg/dL (Abnormal) Range: 100-199 8-Rrx-614487:00 CBC with auto diff Comments: PATIENT WAS FASTINGPERFORMED BY: LabCoHackettstown Medical CenterRyfbzy1956 [facility] [id number] Information: [id number] (52385) Immature Grans (Abs) 0.0 {x10E3/uL} (Normal) Range: [...] 3.77-5.28 WBC 5.5 {x10E3/uL} (Normal) Range: 3.4-10.8 49-Zmz-276076:55 Urinalysis, Office (78827) UA - LEUKOCYTE ESTERASE Small (Normal) UA [...] Microscopic Examination Comments: PATIENT WAS FASTINGPERFORMED BY: [employer] LabCoT.H.E. MedicalBdbvvd5795 [facility] [id number] Bacteria Moderate (Abnormal) Mucus Threads Present (Normal) Epithelial Cells (non renal) >10 {/hpf} (Abnormal) Range: 0 - 10 RBC 0-2 {/hpf} (Normal) Range: 0 - 2 WBC 11-30 {/hpf} (Abnormal) Range: 0 - 5 :10 CALCIFIDIOL (26249) VIT D 25 Comments: PATIENT WAS FASTINGPERFORMED BY: [employer] [facility] Qsolox2652 [facility] [id number] Vitamin D, 25-Hydroxy 30.0 ng/mL (Normal) Range: 30.0-100.0 Comments: Vitamin D deficiency has been defined by the [place] of[place]icine and an Endocrine Society practice guideline as alevel of serum 25-OH vitamin D less than 20 ng/mL (1,2).The Endocrine Society went on to further define vitamin Dinsufficiency as a level between 21 and 29 ng/mL (2).1. IOM ([place] of [employer]). 2010. Dietary reference intakes for calcium and D. [place]oo [place]: The National Academies Press.2. Barb MF, Malachi NC, Bj LEAL, et al. Evaluation, treatment, and prevention of vitamin D deficiency: an Endocrine Society clinical practice guideline. JCEM. 2011 Apr; 96(7):1911-30. :10 URINALYSIS, W/ MICRO (42594) Comments: PATIENT WAS FASTINGPERFORMED BY: [facility]6370 [facility] [id number] Microscopic Examination See below: (Normal) Comments: Microscopic was indicated and was performed. Nitrite, Urine Negative (Normal) Urobilinogen,Semi-Qn 0.2 mg/dL (Normal) Range: 0.2-1.0 Bilirubin Negative (Normal) Occult Blood Negative (Normal) Ketones Negative (Normal) Glucose Negative (Normal) Protein 1+ (Abnormal) WBC Esterase 3+ (Abnormal) Appearance Cloudy (Abnormal) Urine-Color Yellow (Normal) pH 7.5 (Normal) Range: 5.0-7.5 Specific [place] 1.023 (Normal) Range: 1.005-1.030 :10 METABOLIC PANEL, COMPREHENSIVE Comments: PATIENT WAS FASTINGPERFORMED BY: [facility] [id number] (27508) ALT (SGPT) 26 [iU]/L (Normal) Range: 0-32 [...] Glucose, Serum 92 mg/dL (Normal) Range: 65-99 :10 LIPID PANEL (20896) Comments: PATIENT WAS FASTINGPERFORMED BY: HenableHackettstown Medical CenterVxacgr4935 [facility] [id number] LDL/HDL Ratio 1.9 {ratio_units} (Normal) Range: 0.0-3.2 [...] auto diff Comments: PATIENT WAS FASTINGPERFORMED BY: HenableHackettstown Medical CenterAbqsic4195 [facility] [id number] Information: [id number]; apt. 09-18-[birth year] (55226) Immature Grans (Abs) 0.0 {x10E3/uL} (Normal) Range: [...] 3.77-5.28 WBC 5.7 {x10E3/uL} (Normal) Range: 3.4-10.8 09-Mar-20158:27 CBC With Differential/Platelet Comments: PATIENT WAS FASTINGPERFORMED BY: LabCoHackettstown Medical CenterAhyneq4648 [facility] [id number] Information: [id number] Immature Grans (Abs) 0.0 {x10E3/uL} (Normal) Range: [...] 3.77-5.28 WBC 5.5 {x10E3/uL} (Normal) Range: 3.4-10.8 :27 Comp. Metabolic Panel (14) Comments: PATIENT WAS FASTINGPERFORMED BY: LabCoHackettstown Medical CenterDafxza7636 [facility] [id number] ALT (SGPT) 24 [iU]/L (Normal) Range: 0-32 [...] With LDL/HDL Comments: PATIENT WAS FASTINGPERFORMED BY: CloneFreeman Cancer InstituteRqychk3968 [facility] [id number] Ratio LDL/HDL Ratio 2.1 {ratio_units} (Normal) Range: [...] mg/dL (Abnormal) Range: 100-199 :27 Microalb/Creat Ratio, [place] Comments: PATIENT WAS FASTINGPERFORMED BY: [facility]6370 [facility] [id number]; has fu 03-17-15 will review with her then Microalb/Creat Ratio 9.1 {mg/g_creat} Range: 0.0-30.0 (Normal) Microalbumin, Urine 25.2 ug/mL (Abnormal) Range: 0.0-17.0 Creatinine, Urine 278.2 mg/dL (Abnormal) Range: 15.0-278.0 Vitamin D, 25-Hydroxy 31.1 ng/mL (Normal) Comments: PATIENT WAS FASTINGPERFORMED BY: [facility] [id number] :27 Range: 30.0-100.0 Comments: Vitamin D deficiency has been defined by the [place] of[place] and an Endocrine Society practice guideline as alevel of serum 25-OH vitamin D less than 20 ng/mL (1,2).The Endocrine Society went on to further define vitamin Dinsufficiency as a level between 21 and 29 ng/mL (2).1. IOM ([place] of [place]). 2010. Dietary reference intakes for calcium and D. [place]: The National Academies Press.2. Barb MF, Malachi BEYER, Bj LEAL, et al. Evaluation, treatment, and prevention of vitamin D deficiency: an Endocrine Society clinical practice guideline. JCEM. 2010; 96(7):1911-30. :35 Microscopic Examination Comments: PATIENT WAS FASTINGPERFORMED BY: LabCo Ebbyvm8507 [facility] [id number] Bacteria None seen (Normal) Mucus Threads Present (Normal) Crystal Type Calcium Oxalate (Normal) Crystals Present (Abnormal) Epithelial Cells (non renal) 0-10 {/hpf} (Normal) Range: 0 - 10 RBC 0-2 {/hpf} (Normal) Range: 0 - 2 WBC 0-5 {/hpf} (Normal) Range: 0 - 5 :06 Rapid Strep Test, Office (49169) Rapid Strep Test, Office Negative (Normal) :03 Rapid Flu (17404 x 2) Influenza A Ag neg (Normal) :35 URINALYSIS, W/ MICRO (05698) Comments: 09-14; PATIENT WAS FASTINGPERFORMED BY: [facility] Wspgze3560 [facility] [id number] Microscopic Examination See below: (Normal) Comments: Microscopic was indicated and was performed. Nitrite, Urine Negative (Normal) Urobilinogen,Semi-Qn 1.0 mg/dL (Normal) Range: 0.0-1.9 Bilirubin Negative (Normal) Occult Blood Negative (Normal) Ketones Trace (Abnormal) Glucose Negative (Normal) Protein 1+ (Abnormal) WBC Esterase Trace (Abnormal) Appearance Clear (Normal) Urine-Color Yellow (Normal) pH 6.5 (Normal) Range: 5.0-7.5 Specific [place] 1.029 (Normal) Range: 1.005-1.030 :35 CBC, Platelets & Auto Diff Comments: 09-14; PATIENT WAS FASTINGPERFORMED BY: LATA [facility] [employer] [facility] [id number] Information: [id number] (81453) Immature Grans (Abs) 0.2 {x10E3/uL} Range: 0.0-0.1 [...] 3.4-10.8 (Abnormal) :35 Metabolic Panel, Comprehensive Comments: 09-14; PATIENT WAS FASTINGPERFORMED BY: LATA [facility]70 [facility] [id number] (53658) ALT (SGPT) 16 [iU]/L (Normal) Range: 0-32 [...] mg/dL (Normal) Range: 65-99 08-Sep-20149:35 Lipid Panel (39036) Comments: 12-14; PATIENT WAS FASTINGPERFORMED BY: LATA [facility] Auuboi6922 [facility] [id number] LDL/HDL Ratio 1.7 {ratio_units} (Normal) Range: 0.0-3.2 [...] Cholesterol, Total 215 mg/dL (Abnormal) Range: 100-199 02-Hip-101045:12 Metabolic Panel, Basic Comments: today; PATIENT NOT FASTINGPERFORMED BY: [employer]70 [facility] [id number] Information: [id number],NURSE DRAW (83539) Calcium, Serum 10.6 mg/dL (Abnormal) Range: 8.6-10.2 [...] Glucose, Serum 93 mg/dL (Normal) Range: 65-99 06-Jan-20148:06 METABOLIC PANEL, Comments: 4 months; PATIENT WAS FASTINGPERFORMED BY: [employer]6370 [facility] [id number] Information: [id number] COMPREHENSIVE (39041) ALT (SGPT) 24 [iU]/L (Normal) Range: 0-32 [...] Glucose, Serum 91 mg/dL (Normal) Range: 65-99 06-Jan-20148:06 LIPID PANEL (28221) Comments: 4 months; PATIENT WAS FASTINGPERFORMED BY: [employer]70 [facility] [id number] LDL/HDL Ratio 2.0 {ratio_units} (Normal) Range: 0.0-3.2 LDL Cholesterol Calc 145 mg/dL (Abnormal) Range: 0-99 VLDL Cholesterol Thanh 22 mg/dL (Normal) Range: 5-40 HDL Cholesterol 71 mg/dL (Normal) Comments: According to ATP-III Guidelines, HDL-C >59 mg/dL is considered anegative risk factor for CHD. Triglycerides 111 mg/dL (Normal) Range: 0-149 Cholesterol, Total 238 mg/dL (Abnormal) Range: 100-199 2-Zzw-529878:03 Potassium Serum (49401) Comments: today; PATIENT NOT FASTINGPERFORMED BY: [employer]70 [facility] [id number] Information: [id number] Potassium, Serum 3.7 mmol/L (Normal) Range: 3.5-5.2 40-Aeb-933285:41 MICROALBUMIN: CREATININE Comments: PATIENT NOT FASTINGPERFORMED BY: [facility]6370 [facility] [id number] Information: [id number] RATIO (65821) AND (74569) Microalb/Creat Ratio 6.9 {mg/g_creat} (Normal) Range: 0.0-30.0 Microalbumin, Urine 19.6 ug/mL (Abnormal) Range: 0.0-17.0 Creatinine, Urine 282.6 mg/dL (Abnormal) Range: 15.0-278.0 51-Dkg-74594:57 METABOLIC PANEL, COMPREHENSIVE Comments: PATIENT WAS FASTINGPERFORMED BY: [facility]Asc[facility]6370 [facility] [id number] (50446) ALT (SGPT) 26 [iU]/L (Normal) Range: 0-32 [...] mg/dL (Normal) Range: 65-99 :57 LIPID PANEL (98996) Comments: PATIENT WAS FASTINGPERFORMED BY: HenableHackettstown Medical CenterBgusqz7873 [facility] [id number] LDL/HDL Ratio 1.7 {ratio_units} (Normal) Range: 0.0-3.2 [...] MANUAL DIFF Comments: PATIENT WAS FASTINGPERFORMED BY: HenableHackettstown Medical CenterJgzbdq8825 [facility] [id number] Information: [id number] (87175) Immature Grans (Abs) 0.0 {x10E3/uL} (Normal) Range: [...] CREATININE RATIO Comments: PATIENT WAS FASTINGPERFORMED BY: HobleeHackettstown Medical CenterPdkfrq2891 [facility] [id number] (59025) AND (47449) Microalb/Creat Ratio 4.0 {mg/g_creat} (Normal) Range: 0.0-30.0 Microalbumin, Urine 8.3 ug/mL (Normal) Range: 0.0-17.0 Creatinine, Urine 206.4 mg/dL (Normal) Range: 15.0-278.0 :29 METABOLIC PANEL, COMPREHENSIVE Comments: PATIENT WAS FASTINGPERFORMED BY: HobleeHackettstown Medical CenterZfpnbr1517 [facility] [id number] (35796) ALT (SGPT) 22 [iU]/L (Normal) Range: 0-32 [...] Glucose, Serum 93 mg/dL (Normal) Range: 65-99 :29 LIPID PANEL (29769) Comments: PATIENT WAS FASTINGPERFORMED BY: [employer]70 [facility] [id number] LDL/HDL Ratio 1.9 {ratio_units} (Normal) Range: 0.0-3.2 [...] MANUAL DIFF Comments: PATIENT WAS FASTINGPERFORMED BY: [employer]6370 [facility] [id number] Information: [id number] (14760) Immature Grans (Abs) 0.0 {x10E3/uL} (Normal) Range: [...] Ambiguous Default Comments: PATIENT WAS FASTINGPERFORMED BY: LabCoHackettstown Medical CenterSwnmwr9015 [facility] [id number] Immature Grans (Abs) 0.0 {x10E3/uL} (Normal) Range: [...] 3.77-5.28 WBC 6.1 {x10E3/uL} (Normal) Range: 4.0-10.5 05-Sep-20128:06 METABOLIC PANEL, COMPREHENSIVE Comments: PATIENT WAS FASTINGPERFORMED BY: LabCoHackettstown Medical CenterGpilkf8057 [facility] [id number] (43670) ALT (SGPT) 22 [iU]/L (Normal) Range: 0-32 [...] mg/dL (Normal) Range: 65-99 :06 LIPID PANEL (52270) Comments: PATIENT WAS FASTINGPERFORMED BY: [facility] Zmtrpq0505 [facility] [id number] LDL/HDL Ratio 1.2 {ratio_units} (Normal) Range: 0.0-3.2 LDL Cholesterol Calc 95 mg/dL (Normal) Range: 0-99 VLDL Cholesterol Thanh 13 mg/dL (Normal) Range: 5-40 HDL Cholesterol 80 mg/dL (Normal) Comments: According to ATP-III Guidelines, HDL-C >59 mg/dL is considered anegative risk factor for CHD. Triglycerides 64 mg/dL (Normal) Range: 0-149 Cholesterol, Total 188 mg/dL (Normal) Range: 100-199 :59 Urinalysis, Office (72508) UA - BILIRUBIN Negative (Normal) UA - BLOOD Hemolyzed Trace (Normal) UA - GLUCOSE Negative (Normal) UA - KETONES Negative mg/dL (Normal) UA - LEUKOCYTE ESTERASE Negative (Normal) UA - NITRITE Negative (Normal) UA - PH 8.0 (Normal) UA - PROTEIN Negative mg/dL (Normal) UA - SPECIFIC GRAVITY 1.015 (Normal) URINE UROBILINGN JOSÉ MIGUEL TIMED Normal mg/dL (Normal) :11 DEXA BONE DENSITY STUDY (HP) Radiology Report See Note (Normal) Comments: PROCEDURE: [...] Kumar M.D.March 29, 2012 at 8:59:04 AM [id number] Signed GP/GP If you are the referring physician and would like to consult with theradiologist who provided this interpretation, please contact Miracle Dale at . If this radiologist is unavailable,youwill be directed to another radiologist to assist. If you are a patient with a question r egarding this report, pleasecontactyour referring physician directly. Professional Interpretation Provided By: [facility], Phone , Dictated on 03/28/12 0813 by Taty masters MD,Vimalranscribed on 03/29/12 0904 by ITS IMPORTSign by Rogelio Kumar MD on 03/29/12904 Sign by: Rogelio Kumar MD 83-Wie-22870:00 BILAT SCRN DIGITAL & CAD Radiology Report [...] Benign finding(s). A letter regarding these res ultswill be sent to the patient by the facility within 30 days. Approximately 10% of breast cancers are not detected by mammography. Anormal mammogram should not delay biopsy of a clinically suspicious abnormality. Signed:Rogelio Kumar M.D.March 28, 2012 at 9:07:04 AM [phone] Signed GP/GP If you are the referring physician and would like to consult with theradiologist who provided this interpretation, please contact Miracle Dale at . If this radiologist is unavailable,youwill be directed to another radiologist to assist. If you are a patient with a question regarding this report, pleasecontactyour referring physician directly. Professional Interpretation Provided By: [facility] [place], Phone , Dictated on 03/28/12 084 7 by Jake ALEXANDRE,EjriVamsiranscribed on 03/28/12 1125 by ITS IMPORTSign by Jake ALEXANDRE,Rogelio on 03/28/12 1126 Sign by: Rogelio Kumar MD 02-Njf-51995:17 LIPID PANEL (44500) Comments: PATIENT NOT FASTINGPERFORMED BY: Hoblee Lontra [facility] [id number] LDL Cholesterol Calc 93 mg/dL (Normal) Range: 0-99 LDL/HDL Ratio 1.3 {ratio_units} (Normal) Range: 0.0-3.2 VLDL Cholesterol Thanh 22 mg/dL (Normal) Range: 5-40 HDL Cholesterol 73 mg/dL (Normal) Comments: According to ATP-III Guidelines, HDL-C >59 mg/dL is considered anegative risk factor for CHD. Triglycerides 112 mg/dL (Normal) Range: 0-149 Cholesterol, Total 188 mg/dL (Normal) Range: 100-199 14-Xif-83810:17 HEPATIC FUNCTION PANEL Comments: PATIENT NOT FASTINGPERFORMED BY: [employer] [facility] [id number] Information: ADD DRAW FEE 097013 ADD J0 6828 (94608) ALT (SGPT) 28 [iU]/L (Normal) Range: 0-40 AST (SGOT) 29 [iU]/L (Normal) Range: 0-40 Alkaline Phosphatase, S 54 [iU]/L (Normal) Range: 25-165 Bilirubin, Direct 0.20 mg/dL (Normal) Range: 0.00-0.40 Bilirubin, Total 0.7 mg/dL (Normal) Range: 0.0-1.2 Albumin, Serum 4.6 g/dL (Normal) Range: 3.5-4.8 Protein, Total, Serum 6.5 g/dL (Normal) Range: 6.0-8.5 :30 CBC WITH MANUAL DIFF Comments: PATIENT WAS FASTINGPERFORMED BY: Hoblee Gpoebu0495 [facility] [id number] Information: [id number] (43001) Immature Grans (Abs) 0.0 {x10E3/uL} (Normal) Range: [...] 3.80-5.10 WBC 4.8 {x10E3/uL} (Normal) Range: 4.0-10.5 67-Hyo-04992:30 LIPID PANEL (94521) Comments: PATIENT WAS FASTINGPERFORMED BY: LabCoHackettstown Medical CenterEzfdgx9904 [facility] [id number]; OV 02/28/12 LDL/HDL Ratio 2.1 {ratio_units} (Normal) [...] PANEL, COMPREHENSIVE Comments: PATIENT WAS FASTINGPERFORMED BY: [facility] [id number] (62447) ALT (SGPT) 19 [iU]/L (Normal) Range: 0-40 [...] Glucose, Serum 98 mg/dL (Normal) Range: 65-99 49-Svd-84366:30 MICROALBUMIN: CREATININE RATIO Comments: PATIENT WAS FASTINGPERFORMED BY: [employer]70 [facility] [id number] (06849) AND (14136) Microalb/Creat Ratio 5.5 {mg/g_creat} (Normal) Range: 0.0-30.0 [...] regarding this repo rt, please call our 43X2zxtwjjz line @ Dictated on 01/24/12 0917 by Jaron Lindo MDTranscribed on 01/24/12 2329 by ITS IMPORTSign by Jaron Lindo MD on 01/24/12 2330 Sign by: Jaron Lindo MD :46 CHEST, PA AND LATERAL Radiology Report See [...] regarding this report, ple ase call our [id number] line @ Dictated on 01/03/12 1257 by Rakesh Benavidez MDTranscribed on 01/04/12 1540 by ITS IMPORTSign by Rakesh Benavidez MD on 01/04/12 1540 Sign by: Rakesh Benavidez MD 37-Mmo-14581:30 MYOCARD PERF STRESS/REST MULT Radiology Report See Note (Normal) Comments: EXERCISE STRESS TEST HISTORYA 75-year-old lady with history of abnormal EKG. IDPOLGITP34.0 mCi of Sestamibi was injected at rest. [...] fraction. Dic tated on 06/30/11 0134 by Cornell Allen MDlTranscribed on 07/01/11 0530 by Esmer CEDILLO by Jose Allen MD on 07/10/11 1645 Sign by: ___ Jose Allen MD 67-Abx-936137:03 Creatinine Clearance Comments: PERFORMED BY: [employer]6370 [facility] [id number] Information: 06/26/11@7AM 06/27/11@7AM Creatinine Clearance 68 mL/min [...] Creatinine, Serum 0.94 mg/dL (Normal) Range: 0.57-1.00 40-Ivg-547450:03 Protein Total, Qn, 24-Hr Comments: PERFORMED BY: [employer]6370 [facility] [id number] Urine Prot,24hr calculated <31.5 {mg/24_hr} (Normal) Range: 30.0-150.0 Protein,Total,Urine <1.5 mg/dL (Normal) Range: 0.0-15.0 Comments: Verified by repeat analysis :21 LIPID PANEL (19556) Comments: in three months (approximately); PATIENT WAS FASTINGPERFORMED BY: [employer]6370 [facility] [id number] Information: [id number] LDL/HDL Ratio 2.1 {ratio_units} (Normal) Range: 0.0-3.2 [...] Microscopic Examination Comments: PATIENT WAS FASTINGPERFORMED BY: CloneCoHackettstown Medical CenterQngxcm3441 [facility] [id number] Bacteria Few (Normal) Mucus Threads Present (Normal) Crystal Type Amorphous Sediment (Normal) Crystals Present (Abnormal) Cast Type Hyaline casts (Normal) Casts Present {/lpf} (Abnormal) Epithelial Cells (non renal) 0-10 {/hpf} (Normal) Range: 0 - 10 RBC 4-10 {/hpf} (Abnormal) Range: 0 - 3 WBC 0-5 {/hpf} (Normal) Range: 0 - 5 CBC WITH MANUAL DIFF (83472) Comments: PATIENT WAS FASTINGPERFORMED BY: LabGemmyoHackettstown Medical CenterPrudyu1279 [facility] [id number] Immature Grans (Abs) 0.0 {x10E3/uL} (Normal) Range: [...] {x10E3/uL} (Normal) Range: 4.0-10.5 :23 LIPID PANEL (84116) Comments: PATIENT WAS FASTINGPERFORMED BY: HenableHackettstown Medical CenterYhocps7778 [facility] [id number] LDL/HDL Ratio 2.0 {ratio_units} (Normal) Range: 0.0-3.2 [...] PANEL, COMPREHENSIVE Comments: PATIENT WAS FASTINGPERFORMED BY: HenableHackettstown Medical CenterGurifh3867 [facility] [id number] (09418) ALT (SGPT) 32 [iU]/L (Normal) Range: 0-40 [...] Glucose, Serum 93 mg/dL (Normal) Range: 65-99 64-Ddl-32047:23 URINALYSIS, W/ MICRO (40252) Comments: PATIENT WAS FASTINGPERFORMED BY: LabCoHackettstown Medical CenterYfcdfd1394 [facility] [id number]; appt 06/23/11 Microscopic Examination See below: (Normal) Nitrite, Urine Negative (Normal) Urobilinogen,Semi-Qn 0.2 mg/dL (Normal) Range: 0.0-1.9 Bilirubin Negative (Normal) Occult Blood Negative (Normal) Ketones Negative (Normal) Glucose Negative (Normal) Protein 1+ (Abnormal) WBC Esterase Negative (Normal) Appearance Cloudy (Abnormal) Urine-Color Yellow (Normal) pH 6.5 (Normal) Range: 5.0-7.5 Specific [place] 1.028 (Normal) Range: 1.005-1.030 22-Lmu-394365:23 BILAT SCRN DIGITAL & CAD Radiology Report [...] 01/25/11 0931 by ELVIS CALVIN MDTranscribed on 01/25/112349 by ITS IMPORTSign by ELVIS SMITH MD on 01/25/111 Sign by: ELVIS SMITH MD 66-Ahe-682002:01 Urinalysis, Office (84749) UA - BILIRUBIN Negative (Normal) UA - BLOOD Negative (Normal) UA - GLUCOSE Negative (Normal) UA - KETONES Negative mg/dL (Normal) UA - LEUKOCYTE ESTERASE Negative (Normal) UA - NITRITE Negative (Normal) UA - PH 7.0 (Normal) UA - PROTEIN Negative mg/dL (Normal) UA - SPECIFIC GRAVITY 1.015 (Normal) URINE UROBILINGN JOSÉ MIGUEL TIMED Normal mg/dL (Normal) :28 Microscopic Examination Comments: PATIENT WAS FASTINGPERFORMED BY: [employer]70 [facility] [id number] Bacteria Few (Normal) Mucus Threads Present (Normal) Epithelial Cells (non renal) 0-10 {/hpf} (Normal) Range: 0 - 10 RBC 0-3 {/hpf} (Normal) Range: 0 - 3 WBC 0-5 {/hpf} (Normal) Range: 0 - 5 :28 LIPID PANEL (57832) Comments: PATIENT WAS FASTINGPERFORMED BY: [employer]70 [facility] [id number] LDL/HDL Ratio 1.4 {ratio_units} (Normal) Range: 0.0-3.2 HDL Cholesterol 76 mg/dL (Normal) Comments: According to ATP-III Guidelines, HDL-C >59 mg/dL is considered anegative risk factor for CHD. LDL Cholesterol Calc 110 mg/dL (Abnormal) Range: 0-99 VLDL Cholesterol Thanh 23 mg/dL (Normal) Range: 5-40 Cholesterol, Total 209 mg/dL (Abnormal) Range: 100-199 Triglycerides 117 mg/dL (Normal) Range: 0-149 :28 URINALYSIS, W/ MICRO (45365) Comments: PATIENT WAS FASTINGPERFORMED BY: HobleeHackettstown Medical CenterYvaxqn2522 [facility] [id number] Microscopic Examination See below: (Normal) Bilirubin Negative (Normal) Nitrite, Urine Negative (Normal) Occult Blood Negative (Normal) Urobilinogen,Semi-Qn 0.2 mg/dL (Normal) Range: 0.0-1.9 Appearance Clear (Normal) Glucose Negative (Normal) Ketones Negative (Normal) Protein 1+ (Abnormal) WBC Esterase Negative (Normal) pH 6.0 (Normal) Range: 5.0-7.5 Specific [place] 1.031 (Abnormal) Range: 1.005-1.030 Urine-Color Yellow (Normal) :28 METABOLIC PANEL, COMPREHENSIVE Comments: PATIENT WAS FASTINGPERFORMED BY: HobleeHackettstown Medical CenterOmcbgo8730 [facility] [id number] (68257) Alkaline Phosphatase, S 47 [iU]/L (Normal) Range: [...] Glucose, Serum 98 mg/dL (Normal) Range: 65-99 61-Zjw-42272:28 CBC WITH MANUAL DIFF Comments: PATIENT WAS FASTINGPERFORMED BY: LabCoHackettstown Medical CenterEpvbnu9889 [facility] [id number] Information: [id number] (30328) Immature Grans (Abs) 0.0 {x10E3/uL} (Normal) Range: [...] of the chest. Dictated on 09/02/10852 by Remberto Smithscribed on 09/02/10852 by Roberto RENDON ACE by Pao Cristobal on 09/06/10 0749 Sign by: Pao Cristobal 05-Thb-535674:35 N-Telopeptide, Urine Comments: PERFORMED BY: ESTELLA [facility] [address] [id number] BY: LATA [facility] Qcrjhh5138 [facility] [id number] Information: 06/23@7AM 06/24@7AM Interpretive Guide: SPRCS (Normal) [...] 1.4 p=0.2838- 51 2.5 p=0.0351- 67 3.8 p=0.592654-962 17.3 p=0.57147. Menopausal Women Receiving Antiresorptive Therapy: Theprobability that treatment is effective after threemonths is increased when the measured NTx va lue is<or=38 nM BCE/mM PLUMBING ENGINEER, or NTx has decreased >or=30% frombaseline (1)..3. Patients with Paget's Disease of Bone:The probability that treatment is effective after onemonth is increased when the measured NTx value is within the reference range, or NTx has decreased >or=30%from baseline (2)..Fermin CH, Aysha NH, Iraj GS, et al. Am J Med, 102:29-37,1997. (1):M757, 1996. N-telo/Creat. Ratio 10 {nM_BCE/mM_Cr} (Normal) Range: 5-65 Creatinine, Urine 38.2 mg/dL (Normal) Range: 15.0-278.0 N-telopeptide 34 {nmol_BCE} (Normal) :11 Urinalysis, Office (89221) UA - LEUKOCYTE ESTERASE Negative (Normal) UA - NITRITE Negative (Normal) URINE UROBILINGN JOSÉ MIGUEL TIMED 2 mg/dL (Normal) UA - PROTEIN Negative mg/dL (Normal) UA - PH 6.0 (Normal) UA - BLOOD Hemolyzed Trace (Normal) UA - SPECIFIC GRAVITY 1.020 (Normal) UA - KETONES Small mg/dL (Normal) UA - BILIRUBIN Small (Normal) UA - GLUCOSE Negative (Normal) 2-Sep-87236:16 MYOCARD PERF STRESS/REST MULT Radiology Report See Note (Normal) Comments: Exam Number: [id number] MYOCARDIAL PERFUSION SCAN TECHNIQUEThe patient was injected [...] of 62%. Reported By: ROMEL SILVERIO M.D. 24-Nsl-814140:11 BRAIN W/WO CONTRAST Radiology Report See Note (Normal) Comments: Exam Number: [id number] CLINICAL:73-year-old female with tremors for over one [...] ischemic changes. Reported By: ELVIS BEARD M.D. 80-Qlq-985380:39 Basic Metabolic Panel (8) Comments: A courtesy copy of this report has been sent [phone].PERFORMED BY: [facility]6370 [facility] [id number] Information: [id number] Calcium, Serum 9.7 mg/dL (Normal) Range: 8.6-10.2 [...] CREATININE RATIO Comments: PATIENT WAS FASTINGPERFORMED BY: [employer]6370 [facility] [id number] (97805) AND (52917) Microalb/Creat Ratio 4.3 {mg/g_creat} (Normal) Range: 0.0-30.0 Microalbumin, Urine 6.1 ug/mL (Normal) Range: 0.0-17.0 Creatinine, Urine 140.7 mg/dL (Normal) Range: 15.0-278.0 :15 METABOLIC PANEL, COMPREHENSIVE Comments: PATIENT WAS FASTINGPERFORMED BY: [employer]6370 [facility] CenterWEbookNov[facility] [id number] (71831) ALT (SGPT) 30 [iU]/L (Normal) Range: 0-40 [...] Glucose, Serum 94 mg/dL (Normal) Range: 65-99 :15 LIPID PANEL (36299) Comments: PATIENT WAS FASTINGPERFORMED BY: [employer]6370 [facility] [id number] LDL Cholesterol Calc 150 mg/dL (Abnormal) Range: [...] MANUAL DIFF Comments: PATIENT WAS FASTINGPERFORMED BY: [employer]70 [facility] [id number] Information: ADD [id number] AND DRAW FEE 99 0625 (43127) Immature Grans (Abs) 0.0 {x10E3/uL} (Normal) Range: [...] 3.80-5.10 WBC 6.0 {x10E3/uL} (Normal) Range: 4.0-10.5 90-Otv-003070:33 CELINE CULTURE-OTHER (80853) Comments: PATIENT NOT FASTINGPERFORMED BY: LabCoHackettstown Medical CenterWexfkv1847 [facility] [id number] Information: SRC:THRT [id number] Result 1 RRF (Normal) Comments: Routine respiratory graeme Upper Respiratory Culture Final report (Normal) 54-Csc-751329:14 Rapid Strep Test, Office (60482) Rapid Strep Test, Office Negative (Normal) 55-Uce-891114:38 BRAIN/HEAD W/WO CONTRAST Radiology Report See Note (Normal) Comments: Exam Number: [id number] CT SCAN OF THE HEAD Multiple axial [...] without intravenous contrast. Reported By: ROGELIO KUMAR 24-Vvu-857620:47 BILAT SCRN DIGITAL & CAD Radiology Report See Note (Normal) Comments: Exam Number: [id number] MAMMOGRAM, BILATERAL SCREENING DIGITAL AND CAD HISTORYRoutine screening. Full field digital images were obtained in mediolateral oblique andcraniocaudal projections. CAD images w ere reviewed. The current study is compared to the examinations of June and September 08, 2008 from the [facility]. There is moderately dense fibroglandular parench [...] mammograms werealso examined with computer-aided detection software ([email or web address].). Reported By: ELVIS SMITH M.D. 63-Kvk-630255:46 DEXA BONE DENSITY STUDY (HP) Radiology Report See Note (Normal) Comments: Exam Number: [id number] DEXA AXIAL SKELETON A DEXA scan was [...] ofbone density. IMPRESSIONOsteopenia. Reported By: ROGELIO KUMAR :14 TSH (05783) Comments: PATIENT WAS FASTINGPERFORMED BY: LabCo Sedzhl0634 [facility] [id number] TSH 1.980 {uIU/mL} (Normal) Range: 0.450-4.500 :14 METABOLIC PANEL, COMPREHENSIVE Comments: PATIENT WAS FASTINGPERFORMED BY: [facility] Hccoam0473 [facility] [id number] (80516) ALT (SGPT) 17 [iU]/L (Normal) Range: 0-40 [...] mg/dL (Normal) Range: 65-99 :14 LIPID PANEL (05430) Comments: PATIENT WAS FASTINGPERFORMED BY: [employer]70 [facility] [id number] HDL Cholesterol 84 mg/dL (Normal) Comments: According [...] MANUAL DIFF Comments: PATIENT WAS FASTINGPERFORMED BY: LabCoT.H.E. MedicalSllgnj8244 [facility] [id number] Information: [id number] (96355) Baso (Absolute) 0.1 {x10E3/uL} (Normal) Range: 0.0-0.2 [...] 3.80-5.10 WBC 6.3 {x10E3/uL} (Normal) Range: 4.0-10.5 47-Ajz-502693:23 Urinalysis, Office (43441) UA - BILIRUBIN Negative (Normal) UA - BLOOD Negative (Normal) UA - GLUCOSE Negative (Normal) UA - KETONES Negative mg/dL (Normal) UA - LEUKOCYTE ESTERASE Negative (Normal) UA - NITRITE Negative (Normal) UA - PH 7.0 (Normal) UA - PROTEIN Negative mg/dL (Normal) UA - SPECIFIC GRAVITY 1.010 (Normal) URINE UROBILINGN JOSÉ MIGUEL TIMED Normal mg/dL (Normal) 13-Jlv-787050:48 Hepatic Function Panel (7) Comments: PERFORMED BY: LabCoHackettstown Medical CenterGbqwoa7120 [facility] [id number] Albumin, Serum 4.4 g/dL (Normal) Range: 3.5-4.8 Alkaline Phosphatase, S 57 [iU]/L (Normal) Range: 25-165 ALT (SGPT) 25 [iU]/L (Normal) Range: 0-40 AST (SGOT) 27 [iU]/L (Normal) Range: 0-40 Bilirubin, Direct 0.14 mg/dL (Normal) Range: 0.00-0.40 Bilirubin, Total 0.4 mg/dL (Normal) Range: 0.1-1.2 Protein, Total, Serum 6.4 g/dL (Normal) Range: 6.0-8.5 :29 Urinalysis, Office (77226) UA - BILIRUBIN Negative (Normal) UA - [...] Comments: PATIENT NOT FASTINGClinical Information: SRC:UR ADD [id number] PERFORMED BY: [facility] MediaNov[facility] [id number] COUNT (21571) Result 1 NG36 (Normal) Comments: No growth in 36 - 48 hours. Urine Culture,Comprehensive Final report (Normal) :50 Metabolic Panel, Basic (06975) Comments: PATIENT NOT FASTINGClinical Information: ADD DRAW FEE 452166 ADD J 16220 PERFORMED BY: [facility] MediaNov[facility] [id number] BUN 16 mg/dL (Normal) Range: 5-26 BUN/Creatinine [...] mmol/L (Normal) Range: 135-145 :58 Urinalysis, Office (55415) UA - BILIRUBIN Negative (Normal) UA - BLOOD Hemolyzed Trace (Normal) UA - GLUCOSE Negative (Normal) UA - KETONES Negative mg/dL (Normal) UA - LEUKOCYTE ESTERASE Negative (Normal) UA - NITRITE Negative (Normal) UA - PH 7.0 (Normal) UA - PROTEIN Negative mg/dL (Normal) UA - SPECIFIC GRAVITY 1.010 (Normal) URINE UROBILINGN JOSÉ MIGUEL TIMED 2 mg/dL (Normal) 9-Kbp-952888:23 SHOULDER,MIN 2 VIEWS Radiology Report See Note (Normal) Comments: Exam Number: [id number] SHOULDER SERIES. HISTORYA 73-year-old woman with right shoulder pain. FINDINGSRight shoulder series. Cortical outlines are intact. Bones arenormally aligned, and joint spaces ar e well maintained. Soft tissuesare unremarkable. IMPRESSIONUnremarkable right shoulder series. Reported By: DAYNA RECINOS M.D. :07 Hepatic Function Panel (7) Comments: PATIENT WAS FASTINGPERFORMED BY: [facility] MediaNov[facility] [id number] Albumin, Serum 4.3 g/dL (Normal) Range: 3.5-4.8 Alkaline Phosphatase, S 63 [iU]/L (Normal) Range: 25-165 ALT (SGPT) 27 [iU]/L (Normal) Range: 0-40 AST (SGOT) 29 [iU]/L (Normal) Range: 0-40 Bilirubin, Direct 0.10 mg/dL (Normal) Range: 0.00-0.40 Bilirubin, Total 0.3 mg/dL (Normal) Range: 0.1-1.2 Protein, Total, Serum 7.0 g/dL (Normal) Range: 6.0-8.5 :38 TSH (60180) Comments: PATIENT NOT FASTINGClinical Information: ADD DRAW FEE 118959 ADD J 90251 PERFORMED BY: [facility] MediaNov[facility] [id number] TSH 1.604 {uIU/mL} (Normal) Range: 0.450-4.500 :25 Metabolic Panel, Comprehensive Comments: PATIENT WAS FASTINGClinical Information: ADD 969501, T36802 PERFORMED BY: [facility] MediaNov[facility] [id number] (68761) A/G Ratio 2.4 (Normal) Range: 1.1-2.5 Albumin, [...] mmol/L (Normal) Range: 135-145 :25 Lipid Panel (69882) Comments: in six months (approximately); PATIENT WAS FASTINGPERFORMED BY: [facility] Rezbqk3510 [facility] [id number] Cholesterol, Total 256 mg/dL (Abnormal) Range: 100-199 HDL Cholesterol 73 mg/dL (Normal) Comments: According to ATP-III Guidelines, HDL-C >59 mg/dL is considered anegative risk factor for CHD. LDL Cholesterol Calc 156 mg/dL (Abnormal) Range: 0-99 LDL/HDL Ratio 2.1 {ratio_units} (Normal) Range: 0.0-3.2 Triglycerides 133 mg/dL (Normal) Range: 0-149 VLDL Cholesterol Thanh 27 mg/dL (Normal) Range: 5-40 :20 Urinalysis, Office (19763) UA - BILIRUBIN Negative (Normal) UA - [...] mg/dL VLDL 22 mg/dL (Normal) Range: 5-40 :40 ROUTINE UA BILIRUBIN URINE SeeNote (Normal) Comments: [...] 0.2 EU/dl (Normal) Range: 0.2 - 1.0 :05 MYOCARD PERF SPECT REST/STRESS Radiology Report See Note (Normal) Comments: Exam Number: [id number] MYOCARDIAL PERFUSION SCAN 11.7 millicuries of Tc99m [...] load.2. Preserved ejection fraction. Reported By: JOSE ALLEN M.D. :55 Urinalysis, Office (52765) UA - BILIRUBIN Negative (Normal) UA - [...] 0.2 EU/dl (Normal) Range: 0.2 - 1.0 :20 EB ANTIBODY EARLY ANTIGN Comments: PATIENT NOT FASTINGPERFORMED BY: LabCoHackettstown Medical CenterEmyukg7220 [facility] [id number] (91751) EBV Ab VCA, IgG 1276 AU/mL (Abnormal) [...] + + Antibody Present - Antibody Absent :36 Upper Respiratory Culture Comments: Clinical Information: SRC:TH PERFORMED BY: LATA [facility] Xnyvgt5472 [address] [place] [id number] Result 1 RRF (Normal) Comments: Routine respiratory graeme Upper Respiratory Culture Final report (Normal) :48 Rapid Strep Test, Office (83485) Comments: neg Rapid Strep Test, Office Negative [...] T PROT 7.0 g/dL (Normal) Range: 6.4-8.2 60-Zfc-14146:20 LIPID CHOL 238 mg/dL (Abnormal) Comments: <200 [...] mg/dL VLDL 13 mg/dL (Normal) Range: 5-40 55-Vnj-314596:41 URINE CELINE CULTURE-JOSÉ MIGUEL COL Comments: PATIENT NOT FASTINGClinical Information: SRC:UR PERFORMED BY: LabCoHackettstown Medical CenterHppidg1653 [facility] [id number] COUNT (29205) Result 1 NG36 (Normal) Comments: No growth in 36 - 48 hours. Urine Culture,Comprehensive Final report (Normal) 26-Tko-086047:30 Urinalysis, Office (52233) UA - LEUKOCYTE ESTERASE Trace (Normal) UA - NITRITE Negative (Normal) UA - PH 7.5 (Normal) UA - PROTEIN Negative mg/dL (Normal) URINE UROBILINGN JOSÉ MIGUEL TIMED 2 mg/dL (Normal) UA - BILIRUBIN Negative (Normal) UA - BLOOD Negative (Normal) UA - GLUCOSE Negative (Normal) UA - KETONES Negative mg/dL (Normal) UA - SPECIFIC GRAVITY 1.010 (Normal) 94-Iug-566167:09 URINE CELINE CULTURE (JOSÉ MIGUEL COL Comments: PATIENT NOT FASTINGClinical Information: SRC:UR ADD [id number] PERFORMED BY: LATA [facility] Ppzvor2325 [address] [place] [id number] COUNT) (98604) Antimicrobial MIHEAD (Normal) Comments: S = Susceptible; [...] mL (Normal) Urine Final report Culture,Comprehensive (Normal) 06-Syc-190742:56 Urinalysis, Office (43248) UA - BILIRUBIN Negative (Normal) UA - BLOOD Non Hemolyzed Trace (Normal) UA - GLUCOSE Small (Normal) UA - KETONES Small mg/dL (Normal) UA - LEUKOCYTE ESTERASE Small (Normal) UA - NITRITE Positive (Normal) UA - PH 6.0 (Normal) UA - PROTEIN 300 mg/dL (Normal) UA - SPECIFIC GRAVITY 1.020 (Normal) URINE UROBILINGN JOSÉ MIGUEL TIMED 2 mg/dL (Normal) 05-Qsn-26722:12 L/S SPINE,MIN 4 VIEWS Radiology Report See Note (Normal) Comments: Exam Number: [id number] LUMBAR SPINE, FIVE VIEWS. INDICATIONLow back pain. [...] pain, right Knee pain, right : Reviewed X Ray Service Technician Letter Indication: Knee pain, right Knee pain, [...] : Follow up [facility] 4 [facility] Med Indication: Osteoporosis Osteoporosis : [...] Flags Indication: Low back pain Planned Observations URINE CELINE CULTURE-IDENTIFICATN (12130)Indication: Right flank pain On: 7-Tqh-527964:15 Request CALCIFIDIOL (88778) VIT D 25Indication: Osteoporosis On: 63-Iwm-755799:51 Request MICROALBUMIN: CREATININE RATIO (14507) AND (09559)Indication: Hypertension On: 05-Hfe-021236:51 Request METABOLIC PANEL, COMPREHENSIVE (82980)Indication: Hypertension On: 24-Zsq-699562:51 Request LIPID PANEL (68302)Indication: Hypertension On: 12-Tym-099144:51 Request CBC W/AUTO DIFF WBC (49504)Indication: Hypertension On: 37-Tuj-005158:51 Request URINALYSIS, W/ MICRO (06338)Indication: Hypertension On: 26-Nht-713068:10 Request METABOLIC PANEL, COMPREHENSIVE (36091)Indication: Hypertension On: 00-Sha-960187:10 Request LIPID PANEL (91350)Indication: Hypertension On: 29-Vka-446280:10 Request CBC WITH MANUAL DIFF (95175)Indication: Hypertension On: 97-Kaq-622806:10 Request CBC, PLATELETS & MANUAL DIFF ([id number])Indication: Hypertension On: 1-Myn-952895:12 Request MICROALBUMIN: CREATININE RATIO ([id number]) AND ([id number])Indication: Hypertension On: 15-Mei-741965:43 Request METABOLIC PANEL, COMPREHENSIVE ([id number])Indication: Hypertension On: 21-Aqk-987065:43 Request LIPID PANEL ([id number])Indication: Hypertension On: 92-Knj-329918:43 Request CBC WITH MANUAL DIFF ([id number])Indication: Hypertension On: 44-Sqc-038730:43 Request CREATININE CLEARANCE ([id number])Indication: Proteinuria On: 13-Vza-186900:12 Request Comments: now 24 hour urine for Protein ([id number])Indication: Proteinuria On: 21-Rvd-038290:12 Request Collagen Crosslinked N-Telopeptide (21526)Indication: Osteoporosis On: 50-Vxl-41904:59 Request Comments: 24 hour urine check now and in six months (approximately) HEPATIC FUNCTION PANEL ([id number])Indication: oncomycosis On: 35-Esu-29760:03 Request Comments: monthly x 3 EB ANTIBODY VIRAL CAPSID (53698) A3Jqtivmccks: Pharyngitis, acute On: 43-Fca-178282:13 Request EB ANTIBODY NUCLR ANTIGN ([id number])Indication: Pharyngitis, acute On: 23-Jaf-222045:13 Request CELINE CULTURE-OTHER ([id number])Indication: Pharyngitis, acute On: 24-Ppp-80505:48 Request URINALYSIS W/O MICRO ([id number])Indication: Hypertension On: 43-Ygf-09840:16 Request METABOLIC PANEL, COMPREHENSIVE ([id number])Indication: Hypertension On: :16 Request CBC WITH MANUAL DIFF ([id number])Indication: Hypertension On: :16 Request Comments: in six months (approximately) LIPID PANEL ([id number])Indication: Hypertension On: 58-Sfl-85907:16 Request CBC (Auto) ([id number])Indication: Hypercholesterolemia On: 49-Ukm-90059:24 Request Metabolic Panel, Comprehensive ([id number])Indication: Hypercholesterolemia On: :24 Request Lipid Panel ([id number])Indication: Hypercholesterolemia On: 88-Vcm-31952:24 Request Comments: in six months (approximately) Metabolic Panel, Comprehensive ([id number])Indication: Hypercholesterolemia On: 58-Oww-195814:09 Request Lipid Panel ([id number])Indication: Hypercholesterolemia On: 71-Tbg-460193:09 Request Comments: 4m Planned Encounters Medical; 3 Month FU - On: 08-Oct-2018 13:45 [facility] Nguyen Santana CNP, CNP Mary Planned Procedures ELECTROCARDIOGRAM, COMPLETE (ECG) On: 30-Jul-2018 Intent ([id number])By: Zoraida Stewart Comments: Sinus Rhythm-HR 86-occasional ectopic ventricular beat-No new changes from last EKG. SCREENING DIGITAL TOMOSYNTHESIS OF On: 11-Jun-2018 Intent BREAST (58083)By: Nguyen Santana CNP, CNP Mary DEXA SCAN AXIAL SKELETON (85802)By: On: 11-Jun-2018 Intent Nguyen Santana CNP, CNP Mary Flu Vaccine (Quadrivalent) 43078Ee: On: 11-Jun-2018 Intent Max GIVENS MaryAnselmo Santana CNP Mary Aerosol Treatment ([id number])By: Terry, On: 09-Nov-2017 Intent Zoraida Comments: Better air exchange after aerosol treatment. Holter Monitor 24 hrsBy: Max GIVENS, On: 15-Sep-2017 Intent Nguyen Santana CNP Mary Spirometry ([id number])By: Max GIVENS, On: 15-Sep-2017 Intent Nguyen Santana CNP Mary Comments: mod severe restriction ELECTROCARDIOGRAM, COMPLETE (ECG) On: 15-Sep-2017 Intent ([id number])By: Nguyen Santana CNP Comments: sinus bradycardia Nguyen GIVENS MAGNETIC RESONANCE IMAGING OF RIGHT On: 05-Jul-2017 Intent KNEE WITHOUT CONTRAST ([id number])By: Nguyen Santana CNP, CNP Mary Flu Vaccine (Quadrivalent) 40085La: On: 14-Jun-2017 Intent Nguyen Santana CNP, CNP Mary Comments: Lot:[id number]:03/19/18Dose:0.5mLRoute:IMSite:L DltdGiven By:asVIS signed Ultrasound - LiverBy: Nguyen Santana CNP On: 08-Mar-2017 Intent E Nguyen Santana CNP Comments: REpeat in Jun 2017 CT - Abdomen & Pelvis Stone On: 30-Nov-2016 Intent ProtocolBy: Nguyen Santana CNP, CNP, Mary E Flu Vaccine (Quadrivalent) 51132Uw: On: 23-Aug-2016 Intent Slafreida HUMIDIFIER MAINTENANCE WORKERJo Flu Vaccine (Quadrivalent) 31515Hz: On: 15-Sep-2015 Intent George Bueno MD Comments: lot [id number]: 03/31/2016site/route L jean, IMamt 0.5mlVIS and ABN signed when applicableChelsea, OPERATIONS TRAINER Kenalog Injection, 10 mgm (J3301)By: On: 20-Mar-2015 Intent George Bueno MD Comments: x4 TDAP VACCINE >7 IM (44326)By: Ximena On: 17-Mar-2015 George Mayer MD MRI - Shoulder(s) - RightBy: Ximena On: 17-Mar-2015 George Mayer MD ADMINISTRATION OF INFLUENZA VIRUS On: 16-Sep-2014 Intent VACCINE (G0008)By: George Bueno MD Flu Vaccine (Quadrivalent) 15541Oq: On: 16-Sep-2014 Intent George Bueno MD ELECTROCARDIOGRAM, COMPLETE (ECG) On: 16-Sep-2014 Intent ([id number])By: George Bueno MD Comments: routine for baseline see scanned document of test done to see results reviewed today with patient Aerosol Treatment (53631)By: Max On: 01-Sep-2014 Intent Nguyen GIVENS CNP, Mary E Eprescribed prescriptions ([id number])By: On: 25-Feb-2014 Intent George Bueno MD Kenalog Injection, 10 mgm (J3301)By: On: 14-Jan-2014 Intent George Bueno MD Kenalog Injection, 10 mgm (J3301)By: On: 14-Jan-2014 Intent George Bueno MD Kenalog Injection, 10 mgm (J3301)By: On: 14-Jan-2014 Intent George Bueno MD Kenalog Injection, 10 mgm (J3301)By: On: 14-Jan-2014 Intent George Bueno MD DXA, BONE DENSITY, AXIAL SKELETON On: 14-Jan-2014 Intent ([id number])By: George Bueno MD MAMMOGRAM, SCREENING, BOTH BREASTS On: 14-Jan-2014 Intent (58059)By: George Bueno MD Eprescribed prescriptions ([id number])By: On: 14-Jan-2014 Intent George Bueno MD FLU VAC, SPLIT, >3 YEARS, INTRAMUSC On: 06-Sep-2013 Intent ([id number])By: PAM Sanz Comments: Lot #:[id number] date:ount given:0.5mlRoute: IMSite given:L DltdGiven by: VIS and ABN signed ADMINISTRATION OF INFLUENZA VIRUS On: 06-Sep-2013 Intent VACCINE (G0008)By: PAM Sanz Breast Screening - BilateralBy: On: 05-Jul-2013 Intent George Bueno MD Eprescribed prescriptions ([id number])By: On: 07-Mar-2013 Intent Shelby Padilla ELECTROCARDIOGRAM, COMPLETE (ECG) On: 14-Dec-2012 Intent ([id number])By: Nguyen Santana CNP, CNP, Mary E ADMINISTRATION OF INFLUENZA VIRUS On: 11-Sep-2012 Intent VACCINE (G0008)By: George Bueno MD FLU VAC, SPLIT, >3 YEARS, INTRAMUSC On: 11-Sep-2012 Intent (42754)By: George Bueno MD Eprescribed prescriptions ([id number])By: On: 29-May-2012 Intent George Bueno MD EKG (09866)By: George Bueno MD On: 28-Feb-2012 Intent Comments: see scanned document of test done to see results reviewed today with patient Holter Monitor 24 hrsBy: Ximena ALEXANDRE, On: 28-Feb-2012 Intent George Moncada DXA, BONE DENSITY, AXIAL SKELETON On: 28-Feb-2012 Intent ([id number])By: George Bueno MD MAMMOGRAM, SCREENING, BOTH BREASTS On: 28-Feb-2012 Intent ([id number])By: George Bueno MD Pulse Oximetry (03708)By: Yvon On: 28-Feb-2012 Intent PAM Ultrasound - AortaBy: Ximena ALEXANDRE, On: 17-Jan-2012 Intent George Moncada Carotid DopplerBy: George Bueno MD On: 17-Jan-2012 Intent Pulse Oximetry (81435)By: Yvon On: 17-Jan-2012 Intent PAM Spirometry (70418)By: Max GIVENS, On: 10-Jan-2012 Intent Nguyen Skinner CNP Comments: Servere airway obstruction with low vital capacity Aerosol Treatment (67531)By: Max On: 10-Jan-2012 Intent Nguyen GIVENS CNP, Mary E Solu -Medrol Injection, 125 mg On: 03-Jan-2012 Intent ([id number])By: Nguyen Santana CNP Comments: Lot # [id number]-R hip. IMDose 125nggiven by:Nguyen Lane CNP Radiology - ChestBy: Nguyen Santana CNP On: 03-Jan-2012 Intent Nguyen Mata CNP Aerosol Treatment (01614)By: Max On: 03-Jan-2012 Intent Nguyen GIVENS CNP, Mary E Pulse Oximetry (83376)By: Gab BETHEA, On: 03-Jan-2012 Intent Taryn Solu -Medrol Injection, 125 mg On: 30-Dec-2011 Intent (J2930)By: Nguyen Santana CNP Comments: Lot #[id number]-left hipDose-125mggiven by: Marie Alvarado LPN CNP, Mary E Aerosol Treatment ([id number])By: Max On: 30-Dec-2011 Intent Nguyen GIVENS CNP, Mary E Solu -Medrol Injection, 125 mg On: 28-Dec-2011 Intent (J2930)By: Nguyen Santana CNP Comments: Lot #[id number]-right hipDose-125 mggiven by: Marie Alvarado LPN CNP, Mary E Aerosol Treatment ([id number])By: Max On: 28-Dec-2011 Intent Nguyen GIVENS E Max GIVENS, Mary Pulse Oximetry (73995)By: Max GIVENS, On: 26-Dec-2011 Intent Mary Max GIVENS, Mary Aerosol Treatment (45351)By: Max On: 26-Dec-2011 Intent CHON, Mary Max GIVENS, Mary FLU VAC, SPLIT, >3 YEARS, INTRAMUSC On: 19-Aug-2011 Intent ([id number])By: George Bueno MD Comments: refuse Echo CompleteBy: George Bueno MD On: 23-Jun-2011 Intent Nuclear Stress Test/Stress On: 23-Jun-2011 Intent SPECT/TreadmillBy: George Bueno MD EKG (12820)By: George Bueno MD On: 23-Jun-2011 Intent ADMINISTRATION OF PNEUMOCOCCAL On: 15-Dec-2010 Intent VACCINE (G0009)By: George Bueno MD PNEUM VAC ADLT/IMUMNOSPR, SBC/INTRM On: 15-Dec-2010 Intent ([id number])By: George Bueno MD MAMMOGRAM, SCREENING, BOTH BREASTS On: 15-Dec-2010 Intent (65203)By: George Bueno MD Eprescribed prescriptions (G8553)By: On: 15-Dec-2010 Intent George Bueno MD Aerosol Treatment (63707)By: Ximena On: 06-Dec-2010 Intent George ALEXANDRE Pulse Oximetry (85095)By: Yvon On: 06-Dec-2010 Intent PAM Spirometry (37438)By: Ximena ALEXANDRE, On: 31-Aug-2010 Intent George Moncada Radiology - ChestBy: George Bueno MD On: 31-Aug-2010 Intent M Nuclear Stress Test/Stress On: 27-May-2010 Intent SPECT/TreadmillBy: George Bueno MD ELECTROCARDIOGRAM, COMPLETE (ECG) On: 27-May-2010 Intent (06198)By: George Bueno MD Spirometry (32024)By: Ximena ALEXANDRE, On: 27-May-2010 Intent George Moncada Pulse Oximetry (52242)By: Ximena ALEXANDRE, On: 27-May-2010 Intent George Moncada MRI - BrainBy: George Bueno MD On: 27-May-2010 Intent Aerosol Treatment (06612)By: Feliciano DRUMMOND, On: 22-Mar-2010 Intent Holly A Pulse Oximetry (45202)By: Ashlee, On: 22-Mar-2010 Intent Stephanie Comments: 95%- spirometry with mod airway obsst CT - Brain/Head (IV Contrast On: 04-Feb-2010 Intent Needed)By: George Bueno MD Comments: attention posterior fossa EKG (35802)By: George Bueno MD On: 01-Jan-2010 Intent DXA, BONE DENSITY, AXIAL SKELETON On: 01-Jan-2010 Intent (57284)By: George Bueno MD MAMMOGRAM, SCREENING, BOTH BREASTS On: 01-Jan-2010 Intent (59175)By: George Bueno MD MRI - Shoulder(s) - RightBy: Ximena On: 01-Jan-2010 Intent George ALEXANDRE Radiology - Shoulder - RightBy: On: 07-Jan-2009 Intent George Bueno MD Holter Monitor 24 hrsBy: Ximena ALEXANDRE, On: 09-Dec-2008 Intent George Moncada ELECTROCARDIOGRAM, COMPLETE (ECG) On: 09-Dec-2008 Intent (77999)By: George Bueno MD Spirometry (89086)By: Ximena ALEXANDRE, On: 09-Dec-2008 Intent George Moncada Pulse Oximetry (78191)By: Ximena ALEXANDRE, On: 09-Dec-2008 Intent George Moncada EKG (22006)By: George Bueno MD On: 29-May-2008 Intent Nuclear Stress Test/Stress On: 29-May-2008 Intent SPECT/TreadmillBy: George Bueno MD Pulse Oximetry (50011)By: Daniel ALBA, On: 13-Mar-2008 Intent Gin SPECIMEN HNDLNG/TRNSPRT, OFFC > LAB On: 13-Mar-2008 Intent (69211)By: Gin Sanchez LPN Echo CompleteBy: George Bueno MD On: 29-Nov-2007 Intent Radiology - Lumbar SpineBy: Ximena On: 29-May-2007 George Mayer MD Radiology - Ankle - LeftBy: Ximena On: 28-Jun-2006 George Mayer MD Planned Medications INJECTION, METHYLPREDNISOLONE SODIUM SUCCINATE, UP TO 125 MG Ordered: 28-Dec-2011 Pending Ciesa EDITING COMPUTER PUBLISHER, Mary Ciesa EDITING COMPUTER PUBLISHER, Mary INJECTION, METHYLPREDNISOLONE SODIUM SUCCINATE, UP TO 125 MG Ordered: 30-Dec-2011 Pending Ciesa EDITING COMPUTER PUBLISHER, Mary Ciesa EDITING COMPUTER PUBLISHER, Mary INJECTION, METHYLPREDNISOLONE SODIUM SUCCINATE, UP TO 125 MG Ordered: 03-Jan-2012 Pending Ciesa EDITING COMPUTER PUBLISHER, Mary Ciesa EDITING COMPUTER PUBLISHER, Mary INJECTION, TRIAMCINOLONE ACETONIDE, NOT OTHERWISE SPECIFIED, 10 MG Ordered: 14-Jan-2014 Pending George Bueno MD INJECTION, TRIAMCINOLONE ACETONIDE, NOT OTHERWISE SPECIFIED, 10 MG Ordered: 14-Jan-2014 Pending Geogre Bueno MD INJECTION, TRIAMCINOLONE ACETONIDE, NOT OTHERWISE SPECIFIED, 10 MG Ordered: 14-Jan-2014 Pending George Bueno MD INJECTION, TRIAMCINOLONE ACETONIDE, NOT OTHERWISE SPECIFIED, 10 MG Ordered: 14-Jan-2014 Pending George Bueno MD INJECTION, TRIAMCINOLONE ACETONIDE, NOT OTHERWISE SPECIFIED, 10 MG Ordered: 20-Mar-2015 Pending George Bueno MD Instructions Name Dates Details BMI 27.0-27.9,adult : [...] Indication: Hypertension Hypertension : DISCONTINUED - URINALYSIS (18109) Indication: Hypertension Hypertension : DISCONTINUED - MICROALBUMIN: CREATININE RATIO (39080) AND (16797) Indication: Hypertension Screening for breast cancer : DISCONTINUED - BILATERAL MAMMOGRAMS (86922) Indication: Screening for breast cancer Osteoporosis : [...] The patient does have durable power of immigration attorney and living will. The patient has noticed dropping activities and interests, poor spirits most of time, staying at home rather than doing something new or going out, having problems with memory than others, feeling worthless and lack of energy. Other providers contributing to the patient's care are gravel truck driver (nusrat) and other: (last eye exam 2017- dr. hwaley). Note for Annual Medicare Exam: Here for Medicare physical. I wou ld also like to have a referral [...] using antibiotics. Note for Infection: went to [facility] urgent care last was put on antibiotic [...] Need for immunization against influenza), Mitral Valve Zutfsqjwjsgnt576.6), Osteoporosis (733.00), Irritable bowel syndrome (564.1), ATHEROSCLEROSIS, AORTIC (440.0), Anxiety (300.00), History of colon polyps, Asthma, intrinsic, mild intermittent, with status asthmaticus, Osteoarthritis, Shoulder pain (719.41), Allergic rhinitis [facility] Office Visit On: 19-Mar-2015 10:42 Encounter Reason: Injections - The medication the patient is here to receive is other (2 cc marcaine lot# [id number] exp: 01-31-2016 1cc kenalog lot# [id number] exp right shoulder ).Encounter Diagnosis: Shoulder pain (719.41) End: 20-Mar-2015 15:53 [facility] Office Visit On: 17-Mar-2015 11:04 Encounter Reason: Follow up tests - Date: (03.09.15)., [ADDITIONAL REASON] Annual Medicare Exam - The patient had reviewed and updated the family history, End: 17-Mar-2015 11:52 medication/s, past medical history and social history. Yes the patient did have () a mini mental status exam done today. [...] The patient does have durable power of immigration attorney and living will. The patient has noticed nothing from the geriatic depression scale. Other providers contributing to the patient's care are gravel truck driver (Dr Silverio) and other: (Dr ridley saw [...] (733.00), Hypercholesterolemia (272.0), Osteoarthritis (715.96), Mitral Valve Eakkhxotoeodt026.6), Colon Polyps, History of (V12.72), Asthma,Intrinsic (493.11), [...] incontinence, female, Fever and chills, Mitral Valve Bpuccxmubenae358.6), Colon Polyps, History of (V12.72), Irritable bowel [...] (493.11), Irritable bowel syndrome (564.1), Mitral Valve Hbujgmeaqbafi211.6), Colon Polyps, History of (V12.72), Osteoporosis (733.00), [...] The patient does have durable power of immigration attorney and living will. The patient has noticed having problems with memory than others. Other providers contributing to the patient's c are are gravel truck driver (Dr Silverio) and other: (Dr Rodrigues and [...] (401.0)), Osteoarthritis (715.96), Anxiety (300.00), Mitral Valve Wagcnakdysvuu698.6), Osteoporosis (733.00), Allergic Rhinitis(477.9), Tremors (781.0), ATHEROSCLEROSIS, [...] from Hypertension (401.0)), Anxiety (300.00), Mitral Valve Ldwfqtgyessep978.6), Hypercholesterolemia (272.0), Asthma,Intrinsic (493.11), Colon Polyps, History [...] from Hypertension (401.0)), Anxiety (300.00), Mitral Valve Sqzenwopvichw612.6), Osteoarthritis (715.96), Osteoporosis (733.00), Allergic Rhinitis(477.9), ATHEROSCLEROSIS, [...] (733.00), Hypercholesterolemia (272.0), Asthma,Intrinsic (493.11), Mitral Valve Osdipkcmzhmxl195.6), Sleep disorder (780.50), ATHEROSCLEROSIS, AORTIC (440.0), Anxiety [...] ATHEROSCLEROSIS, AORTIC (440.0), Bradycardia (427.89), Mitral Valve Jfyfnidfxavww916.6), Hip bursitis 726.5, Hypercholesterolemia (272.0), Anxiety (300.00), [...] Hypercholesterolemia (272.0), ATHEROSCLEROSIS, AORTIC (440.0), Mitral Valve Bjcfdjxcxnzjn494.6), Hip bursitis 726.5 [facility] Office [...] Anxiety (300.00), Chronic cough (786.2), Mitral Valve Oiyajxhraajdc059.6), Irritable bowel syndrome (564.1), Asthma,Intrinsic (493.11), Colon [...] Sleep disorder (780.50), Tremors (781.0), Mitral Valve Aruypsjilmkof124.6), Anxiety (300.00), Osteoporosis (733.00), Irritable bowel syndrome [...] supplemental vitamins. The medical issues the patien anni is following up for include cardiac issues ,depression (anxiety) ,high blood pressure ,high cholesterol ,osteoarthritis ,osteoporosis/osteopenia and other (tremor, IBS). Encounter Diagnosis: Rash (782.1), SYMPTOM, WHEEZING (786.07), Colon Polyps, History of (V12.72), Allergic Rhinitis(477.9), Osteoarthritis (715.96), Diarrhea (787.91), Osteopenia (733.90), Hypercholesterolemia (272.0), Hypertension 401.1 (Renamed from Hypertension (401.0)), Tremors (781.0), Mitral Valve Ravohxdulowzd519.6), WWV-Bare, Shoulder pain (719.41), Headache (784.0), Irritable [...] chills. Note for Cold Symptoms: alot of draiange- little wheeze-- she is taking coricidanEncounter Diagnosis: [...] (427.89), Irritable bowel syndrome (564.1), Mitral Valve Drpiwzadafsmp908.6), Headache (784.0), WWV-Bare [facility] Office [...] (427.89), Irritable bowel syndrome (564.1), Mitral Valve Hlfwsjmohqomh469.6), Other specified pruritic conditions (698.8), Headache (784.0) [...] (788.1), Low back pain (724.2), Mitral Valve Cohpaktfswebz574.6), Osteopenia (733.90), Diarrhea (787.91), Sleep disorder (780.50), [...] (733.90), Acute sinusitis, unspecified (461.9), Mitral Valve Mzgdvszooceco751.6), WWV-Bare, Low back pain (724.2), Sciatica (724.3), [...] were reported. none reported. Note for Sinusitis/: [place] heat over bodyEncounter Diagnosis: ACUTE PHARYNGITIS (462.), [...] (272.0), Osteoarthritis (715.96), Allergic Rhinitis(477.9), Mitral Valve Pkgitcjyotpvf771.6), Low back pain (724.2), Sciatica (724.3), WWV-Bare [...] (845.09), Hypertension (401.0), Hypercholesterolemia (272.0), Mitral Valve Vkjtbynnnbyif397.6), Sciatica (724.3), Allergic Rhinitis(477.9), WWV-Bare, Low back [...] (715.96), Hypercholesterolemia (272.0), Osteopenia (733.90), Mitral Valve Ztxzmswaioaqo242.6), WWV-Bare, Sciatica (724.3) [facility] Refill [...] [facility] End: 27-Jun-2006 14:56 Payers Fabián/Jovana Naqvi; glynn guarantor
--- OUTSIDE RECORDS SUMMARY | 2018-10-28 14:08 | XMS RPT_ITS | Continuity of Care Document ---
:1935 Author Organization [facility] Address [address] 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 MRI done and went to [facility]. mobic bother stomach so using tylenol [...] on exertion (R06.02, 786.05) Comments: working with sole stapler welt and adjusting medications. wheezing is better. echo, [...] qd (137 MCG/SPRAY) Active CALCIUM + D, 042-339VI-LHQY (Oral Tablet) 1 qd for 0 days [...] Quantity: 30 {Tablet} Refills: 0 Ordered:19-Dec-2017 Long [employer], Ariana L Start : 15-Sep-2017 End : [...] days Quantity: 1 {Aerosol_Soln} Refills: 3 Ordered:19-Dec-2017 aSndoval ALBA Ariana L Start : 23-Aug-2016 End [...] : 10-Nov-2017 End : 19-Dec-2017 Inactive ZOSTAVAX, 04743KCT/0.65ML (Subcutaneous Solution Reconstituted) 1 For Solution once [...] : 15-Sep-2015 End : 15-Sep-2015 Discontinued Creon 50226 UNIT Oral Capsule Delayed Release Particles 2 [...] good [facility] Status: Inactive as of 19-Mar-2015 [...] Result: Comments: See Note; NOTES: [facility] [address] [place] [address] OFFICE VISIT Date of Service: 03/31/18 MR#: [id number] Acct: [id number] Name: GAYATRI NAQVI Rep #: [id number] : 1935 Provider: RHODA Cisse Age/Sex: 82/F Location: [facility] Status: Signed Intake Vital Signs03/31/18 Height 5 [...] Medications New: nitrofurantoin monohyd/m-cryst 100 mg (Macrobid) [id number] mg PO Q12H 7 days UTI N39.0 [...] Visit Report Result: Comments: See Note; NOTES: [facility] [address] [place] [address] OFFICE VISIT Date of Service: 02/28/18 MR#: [id number] Acct: [id number] Name: GAYATRI NAQVI Rep #: [id number] : 1935 Provider: Romel Silverio MD Age/Sex: 82/F Location[facility] Status: Signed HPI HPI Details: GAYATRI [...] views. The patient underwent exercise on a Jamse protocol for 3 minutes completing stage 1, [...] Signature: Date (if applicable) CC: Nguyen Santana LIME KILN OPERATOR; Dayna Byrne MD 09-Feb-2018 Urgent Care Visit Report Result: Comments: See Note; NOTES: [facility] [address] [place] [address] OFFICE VISIT Date of Service: 02/09/18 MR#: [id number] Acct: [id number] Name: GAYATRI NAQVI Rep #: [id number] : 1935 Provider: Anjel DUONG Age/Sex: 82/F Location: [facility] Status: Signed Intake Vital Signs02/09/18 Height 5 [...] Result: Comments: See Note; NOTES: [facility] [address] [place] [address] OFFICE VISIT Date of Service: 01/26/18 MR#: [id number] Acct: [id number] Name: GAYATRI NAQVI Rep #: [id number] : 1935 Provider: Anjel DUONG Age/Sex: 82/F Location: [facility] Status: Signed Intake Vital Signs01/26/18 Height 5 [...] changes Exam Const General: cooperative, healthy appearing [facility] Head: normal to inspection Ears: hearing [...] the above. This note was generated with RECOMY.COMation software. It may contain incorrect words, spelling, [...] Only (Routine) Result: Comments: See Note; NOTES: [facility] Imaging Services [address] [place] [address] Lower Ext Joint Only (Routine) MR#: [id number] Acct: [id number] Name: GAYATRI NAQVI Rep # : [id number] : 1935 F 81 From: Gianluca Camarena MD PCP: Nguyen Santana Status: REG CLI Study: Lower Ext Joint Only (Routine) Date of Exam: 07/13/17 Exam# [id number] Ordering Dr: Nguyen Santana STUDY: MRI RIGHT [...] , Service support , CC: Nguyen Santana Checker Loader: Signed 07-Jul-2017 PT D/C Summary (1) Result: Comments: See Note; NOTES: [facility] [place] [facility] [address] [place] [address]. [address] [place] [address] Fax REHABILITATION SERVICES DISCHAR GE SUMMARY MR#: [id number] Acct: [id number] Name: GAYATRI NAQVI Rep #: [id number] : 1935 81 From: Levon Jay DPT, OCS, CSCS Referring DrLizzy: Nguyen Santana Status: REG RCR Insurance: [employer] CARE MEDICARE HP - PT D/C Summary [...] degeneratwed medial knee. MRI is approp. Medial singer and unloader brace may be approp after MRI if other options not available(injection, Ortho) If there are questions or concerns regarding this patient's physical therapy, please feel free to call me at [phone]. Thank you for the referral of this patient. Sincerely, Levon Jay DPT, DORA <Electronically signed by Levon Jay DPT, PITO, CSCS> 07/07/17 0642 CC: Nguyen Santana EBG Signed 21-Jun-2017 Inital Evaluation (1) - PT Result: Comments: See Note; NOTES: [facility] [place] [facility] [address] [place] [address]. [address] [place] [address] Fax REHABILITATION SERVICES INITIAL EVALUATION MR#: [id number] Acct: [id number] Name: GAYATRI NAQVI Rep #: [id number] [...] to be FAXED BACK to us at [phone] for Medicare purposes. Please let me know if there are questions or concerns regarding this plan of care. Physician Signature: Date: & amp;#60;Electronically signed by Levon Jay DPT, OCS, CSCS> 06/21/17 0736 CC: Nguyen Santana EBG Signed For Medicare only, by signing this I certify the plan of care . Physicians Signature Date 06-Jun-2017 Discharge Instruction Result: Comments: See Note; NOTES: [facility] Medical Records Department [address] [place] [address] Discharge Instruction 06/06/17 2317 MR#: [id number] Acct: [id number] Name: MONET NAQVI Rep #: [id number] : 1935 81 From: Po Herrera MD [...] your Primary Care Provider. Call [facility] ([phone]) or rep ort to the closest Emergency Room. Call 911 if necessary. 06/06/172317 <Electronically signed by Po Herrera MD> Date Po Herrera MD Cosigner Signature (If Indicated): Date CC: Nguyen Santana 06-Jun-2017 Emergency Department Summary Result: Comments: See Note; NOTES: [facility] Medical Records Department [address] [place] [address] Emergency Department Summary 06/06/172311 MR#: [id number] Acct: [id number] Name: GAYATRI NAQVI Rep #: [id number] : 1935 81 From: Po Herrera MD [...] Primary Care Provider. Call [facility] [place] ([phone]) or report to the closest Emergency Room. Call 911 if necessary. 06/06/17 2317 <Electronically signed by Po Herrera MD> Date Po Herrera MD Cosigner Signature (If Indicated): Date CC: Nguyen Brittanyadrien 06-Jun-2017 Knee 4 or More Views Result: Comments: See Note; NOTES: [facility] Imaging Services [address] [place] [address] Knee 4 or More Views MR#: [id number] Acct: [id number] Name: DRISSGAYATRI Rep #: [id number] : 1935 F 81 From: Stephanie Diaz MD PCP: Nguyen Santana Status: REG ER Study: Knee 4 or More Views Date of Exam: 06/06/17 Exam# [id number] Ordering Dr: Po Herrera MD STUDY: X-RAY [...] Stephanie Diaz MD at 23:01 EDT Tel [phone], Service support , CC: Nguyen Santana; Po Herrera MD Checker Loader: Signed 06-Jun-2017 Liver Result: Comments: See Note; NOTES: [facility] Imaging Services [address] [place] [address] Liver MR#: [id number] Acct: [id number] Name: GAYATRI NAQVI Rep #: [id number] : [birth year] F 81 From: Rogelio Kumar MD PCP: Nguyen Santana Status: REG CLI Study: Liver Date of Exam: 06/06/17 Exam# [id number] Ordering Dr: Nguyen Santana STUDY: ABDOMINAL ULTRASOUND [...] Kumar MD at 11:47 EDT Tel [phone], Service support , CC: Nguyen Santana Checker Loader: Signed 27-Mar-2017 Echocardiogram Complete Result: Comments: See Note; NOTES: [facility] Cardiovascular Services [address] [place] [address] Echo Complete 03/24/17 08 MR#: [id number] Acct: [id number] Name: GAYATRI NAQVI ep #: [id number] : 1935 81 From: Romel Silverio MD Attending Dr: Romel Silverio MD Status: REG I Ordering Dr: Romel Silverio MD Date: 03/24/17 Location: [facility] Sex: F C Admitted: Reason For [...] Dictated: 03/24/17 0 822 Date Transcribed: 03/24/171832 Checker Loader: Signed 24-Mar-2017 Nuclear Stress Test - Treadmil Result: Comments: See Note; NOTES: [facility] Imaging Services [address] [place], [place] [address] [place] [address] Howardgeorge 4d Nuclear Stress Test - Treadmil MR#: [id number] Acct: [id number] Name: JULIUS NAQVI Rep #: [id number] : 1935 81 From: Romel Silverio MD [...] 71%. Romel Silverio MD T: NTS JOB: [id number] 03/25/17 0927 <Electronically signed by Romel Silverio MD> Date Romel Silverio MD CC: Nguyen Santana; Romel Silverio MD Date Dictated: 03/24/17 1146 Date Transcribed: 03/24/17 1146 Checker Loader: Signed 03-Mar-2017 Chest PA and Lateral Result: Comments: See Note; NOTES: [facility] Imaging Services [address] [place] [address] Verdana 4d Chest PA and Lateral MR#: [id number] Acct: [id number] Name: GAYATRI NAQVI Rep #: [id number] : 1935 F 81 From: Rogelio Kumar MD PCP: Nguyen Santana Status: REG CLI Study: Chest PA and Lateral Date of Exam: 03/03/17 Exam# [id number] Ordering Dr: Romel Silverio MD STUDY : [...] Kumar MD at 13:42 EDT Tel [phone], Service support , CC: Nguyen Santana; Romel Silverio MD Checker Loader: Signed 12-Dec-2016 Abdomen/Pelvis without Cont Result: Comments: See Note; NOTES: [facility] Imaging Services [address] [place] [address] Verdana 4d Abdomen/Pelvis without Cont MR#: [id number] Acct: [id number] Name: GAYATRI NAQVI Rep #: [id number] : 1935 F 81 From: Philipp Moody MD PCP: Nguyen Santana Status: REG CLI Study: Abdomen/Pelvis without Cont Date of Exam: 12/12/16 Exam# [id number] Ordering Dr: Nguyen Santana JULIANN DY: CT [...] of the osseous structures. ORD ER #: [id number] CT/Abdomen/Pelvis without Cont IMPRESSION: Fatty liver. There are multiple colonic diverticula consistent with diverticulosis. 21mm hypodense lesion in the inferior right lobe of the l iver. This is incompletely evaluated and on contrast enhanced study. Other findings as above. Electronically Signed: Philipp Moody MD at 22:28 EDT , Service support , CC: Nguyen Santana Checker Loader: Signed 22-Sep-2016 Upper Ext Joint Only(Routine) Result: Comments: See Note; NOTES: [facility] Imaging Services [address] [place] [address] Verda 4d Upper Ext Joint Only(Routine) MR#: [id number] Acct: [id number] Name: BERNICE NAQVI JOSEPH Briones Rep #: [id number] : 1935 F 80 From: Emmanuel Guido MD PCP: Nguyen Santana Status: REG CLI Study: Upper Ext Joint Only(Routine) Date of Exam: 09/22/16 Exam# [id number] Ordering Dr: Adilene Byrd DO STUDY: MRI [...] MD at 17:06 EST , Service support [phone], CC: Nguyen Santana; Sonia Byrd DO Checker Loader: Signed 08-Sep-2016 Shoulder min 2 Views Result: Comments: See Note; NOTES: [facility] Imaging Services [address] [place] [address] Verdana 4d Shoulder min 2 Views MR#: [id number] Acct: [id number] Name: GAYATRI NAQVI Rep #: [id number] : 1935 F 80 From: Emmanuel Guido MD PCP: Nguyen Santana Status: REG CLI Study: Shoulder min 2 Views Date of Exam: 09/08/16 Exam# [id number] Ordering Dr: Sonia Byrd DO STUDY: X-RA [...] at 11:28 EST Tel , Service support [phone], CC: Nguyen Santana; Sonia Byrd DO Checker Loader: Signed 06-Sep-2016 Dexa Bone Density Study (HP) Result: Comments: See Note; NOTES: [facility] Imaging Services [address] [place] [address] Verdana 4d Dexa Bone Density Study (HP) MR#: [id number] Acct: [id number] Name: LIDA NAQVI Rep #: [id number] : 1935 F 80 From: Rogelio Kumar MD PCP: Nguyen Santana Status: REG CLI Study: Dexa Bone Density Study (HP) Date of Exam: 09/06/16 Exam# [id number] Ordering Dr: Joi Santana STUDY: DUAL ENERGY [...] Rogelio Kumar MD at 13:43 EST Tel [phone], Service support [phone], CC: Nguyen Santana Checker Loader: Signed 24-May-2016 PT D/C Summary (1) Result: Comments: See Note; NOTES: [facility] [place] Physical [facility] [address] [place] [address]. [address] [place] [address] Fax REHABILITATION SERVICES DISCHA RGE SUMMARY MR#: [id number] Acct: [id number] Name: GAYATRI NAQVI Rep #: [id number] [...] please feel free to call me at [phone]. Thank you for the referral of this patient. Sincerely, Norma Thomas <Electronically signed by Norma Thomas PT, MDT> 05/24/16 1341 CC: George Bueno MD ; Edson Franks DO TAPAN Signed 18-Apr-2016 Re-Evaluation - PT (1) Result: Comments: See Note; NOTES: [facility] [place] [facility] [address] [place] [address]. [address] [place], [place] [address] Fax [facility] / [facility] [address] PHYSICAL THERAPY MR#: [id number] Acct: [id number] Name: GAYATRI NAQVI Rep #: [id number] : 1935 80 From: Norma Thomas PT, [...] do not hesitate to contact me at [phone] by phone or if you have que stions or concerns regarding this new plan of care! Sincerely, Norma Thomas <Electronically signed by Norma Thomas PT, CertLizzy MDT> 04/18/16 1308 CC: George Bueno MD; Edson mead DO TAPAN Signed For Medicare only, by signing this I certify the plan of care. Physicians Signature Date 16-Mar-2016 Inital Evaluation (1) - PT Result: Comments: See Note; NOTES: [facility] [place] [facility] [address] [place] [address]. [address] [place] [address] Fax REHABILITATION RVICES INITIAL EVALUATION MR#: [id number] Acct: [id number] Name: GAYATRI NAQVI Rep #: [id number] : 1935 80 From: Norma Thomas PT, [...] to be FAXED BACK to us at [phone] for Medicare purposes. Please let me know if there are questions or concerns regarding this plan of care. Physician Signature:__ Date: <Electronically signed by Norma Thomas PT, Cert. MDT> 03/16/16 1323 CC: George Bueno MD; Edson Franks DO TAPAN Signed For Medicare only, by signing this I certify the plan of care. Physicians Signature Date 06-Mar-2016 Discharge Instruction Result: Comments: See Note; NOTES: [facility] Medical Records Department [address] [place] [address] Discharge Instruction 03/04/16 1919 MR#: [id number] Acct: [id number] Name: GAYATRI NAQVI Rep #: [id number] : 1935 80 From: Pastor Mccain MD [...] problems, contact your doctor. Call [facility] ([phone]) or report to the closest Emergency Room. Call 911 if necessary. 03/06/16 0704 <Electronical ly signed by Pastor Mccain MD> Date Pastor Mccain MD Cosigner Signature (If Indicated): Date CC: George Bueno MD 06-Mar-2016 Emergency Department Summary Result: Comments: See Note; NOTES: [facility] Records Department [address] [place] [address] Emergency Department Summary MR#: [id number] Acct: [id number] Name: GAYATRI NAQVI Rep #: [id number] : 1935 80 From: Pastor Mccain MD [...] [facility] B: [id number] 03/06/16 0704 <Electronically signed by Pastor Mccain MD> Date Pastor Mccain MD Cosigner Signature (If Indicated): Date CC: George Bueno MD; Wesley Alba MD Date Dictated: 03/05/161121 Date Transcribed: 03/05/161121 Checker Loader: Signed 04-Mar-2016 Shoulder One View Result: Comments: See Note; NOTES: [facility] Imaging Services [address] [place] [address] Verdana 4d Shoulder One View MR#: [id number] Acct: [id number] Name: STEPHANIE NAQVI [address] Rep #: [id number] : 1935 F 80 From: Bernadette Daniel MD PCP: George Bueno MD Status: REG ER Study: Shoulder One View Date of Exam: 03/04/16 Exam# [id number] Ordering Dr: Pastor Mccain MD STUDY: X-RAY [...] MD at 19:00 EDT , Service support [phone], RAD/Shoulder One View IMPRESSION: Anatomic relocation of the left glenohume ral joint without fracture deformity. Electronically Signed: Bernadette Daniel MD at 19:00 EDT , Service support [phone], CC: George Xiao i, MD; Pastor Mccain MD Checker Loader: Signed 04-Mar-2016 Hip 2-3 Views with Pelvis Result: Comments: See Note; NOTES: [facility] Imaging Services [address] [place] [address] Verdana 4d Hip 2-3 Views with Pelvis MR#: [id number] Acct: [id number] Name: GAYATRI ROSA Rep #: [id number] : 1935 F 80 From: Bernadette Daniel MD PCP: George Bueno MD Status: REG ER Study: Hip 2-3 Views with Pelvis Date of Exam: 03/04/16 Exam# [id number] Ordering Dr: Pastor Mccain MD STUDY: X-RAY [...] MD at 17:17 EDT , Service support [phone], RAD/Hip 2-3 Views with Pelvis IMPRESSION: Normal x-ray examination of the pelvis and hip. Chad quarles Signed: Bernadette Daniel MD at 17:17 EDT , Service support [phone], CC: George Bueno MD; Pastor Mccain MD Checker Loader: Signed 04-Mar-2016 Shoulder min 2 Views Result: Comments: See Note; NOTES: [facility] Imaging Services [address] [place] [address] Verda 4d Shoulder min 2 Views MR#: [id number] Acct: [id number] Name: Mayra NAQVI Rep #: [id number] : 1935 F 80 From: Bernadette Daniel MD PCP: George Bueno MD Status: REG ER Study: Shoulder min 2 Views Date of Exam: 03/04/16 Exam# [id number] Ordering Dr: Zach Mccain MD STUDY: X-RAY [...] MD at 17:24 EDT , Service support [phone], Fax RAD/Shoulder min 2 Views IMPRESSION: Complete anterior dislocation of the left shoulder without identified fracture. Electronically Signed: Bernadette Daniel MD at 17:24 EDT , Service support [phone], CC: George Bueno MD; Pastor Mccain MD Checker Loader: Signed 04-Mar-2016 Wrist min 3 Views Result: Comments: See Note; NOTES: [facility] Imaging Services [address] [place] [address] Verdana 4d Wrist min 3 Views MR#: [id number] Acct: [id number] Name: STEPHANIE NAQVI Rep #: [id number] : 1935 F 80 From: Bernadette Daniel MD PCP: George Bueno MD Status: REG ER Study: Wrist min 3 Views Date of Exam: 03/04/16 Exam# [id number] Ordering Dr: Pastor Mccain MD STUDY: X-RAY [...] at 17:12 EDT , Se rvice support [phone], RAD/Wrist min 3 Views IMPRESSION: Negative for fracture or dislocation. Electronically Signed: Bernadette Daniel MD at 17:12 EDT , Service support [phone], CC: George Bueno MD; Pastor Mccain MD Checker Loader: Signed 24-Mar-2015 Upper Ext Joint Only(Routine) Result: Comments: See Note; NOTES: [facility] Imaging Services [address] [place] [address] MRI Report MR#: [id number] Acct: [id number] Name: GAYATRI NAQVI Rep #: [id number] : 1935 F 79 From: Gianluca Camarena MD PCP: George Bueno MD Status: REG CLI Study: Upper Ext Joint Only(Routine) Date of Exam: 03/24/15 Exam# [id number] Ordering Dr: George Bueno MD STUDY: MRI [...] at 15:58 EDT Tel , Service support [phone], CC: George Bueno MD Checker Loader: Signed 18-Oct-2014 Emergency Department Summary Result: Comments: See Note; NOTES: [facility] Medical Records Department [address] [place] [address] Emergency Department Summary MR#: [id number] Acct: [id number] Name: DRISSMayra Rep #: [id number] : 1935 78 From: Stephanie Andersen MD [...] injury. Stephanie Andersen MD T: NTS JOB: [id number] 10/18/14 160 6 <Electronically signed by Stephanie Andersen MD> Date Stephanie Andersen MD CC: George Bueno MD Date Dictated: 10/18/14 1050 Date Transcribed: 10/18/14 105 Checker Loader: Signed 18-Oct-2014 Discharge Instruction Result: Comments: See Note; NOTES: [facility] Medical Records Department [address] [place] [address] Discharge Instruction 10/18/14 1040 MR#: [id number] Acct: [id number] Name: GAYATRI NAQVI Rep #: [id number] : 1935 78 From: Stephanie Andersen MD [...] without Contrast Result: Comments: See Note; NOTES: [facility] Imaging Services [address] [place] [address] CAT Scan Report MR#: [id number] Acct: [id number] Name: GAYATRI NAQVI Rep #: [id number] : 1935 F 78 From: Jacklyn Vázquez MD PCP: George Bueno MD Status: REG ER Study: Brain/Head without Contrast Date of Exam: 10/18/14 Exam# [id number] Ordering Dr: Stephanie Andersen MD STUDY: C [...] MD at 10:34 EST , Service support [phone], CC: George Bueno MD; Stephanie Andersen MD Checker Loader: Signed 18-Oct-2014 Spine Cervical without Contras Result: Comments: See Note; NOTES: [facility] Imaging Services [address] [place] [address] CAT Scan Report MR#: [id number] Acct: [id number] Name: GAYATRI NAQVI Rep #: [id number] : 1935 F 78 From: Jacklyn Vázquez MD PCP: George Bueno MD Status: REG ER Study: Spine Cervical without Contras Date of Exam: 10/18/14 Exam# [id number] Ordering Dr: Stephanie Andersen MD STUDY : [...] MD at 10:45 EST , Service support [phone], CC: George Bueno MD ; Stephanie Andersen MD Checker Loader: Signed 13-Aug-2014 Bilat Scrn Digital & CAD Result: Comments: See Note; NOTES: [facility] Imaging Services [address] [place] [address] Breast Imaging Report MR#: [id number] Acct: [id number] Name: GAYATRI NAQVI Rep #: [id number] : 1935 F 78 From: Rogelio Kumar MD PCP: George Bueno MD Status: REG CLI Exam# [id number] Ordering Dr: George Bueno MD MAMMOGRAPHY - [...] Kumar MD at 10: 39 EST Tel [phone], Service support [phone], CC: George Bueno MD Checker Loader: Signed 13-Aug-2014 Dexa Bone Density Study (HP) Result: Comments: See Note; NOTES: [facility] Imaging Services [address] [place] [address] Bone Density Report MR#: [id number] Acct: [id number] Name: GAYATRI NAQVI Rep #: [id number] : 1935 F 78 From: Rogelio Kumar MD PCP: George Bueno MD Status: REG CLI Study: Dexa Bone Density Study () Date of Exam: 08/13/14 Exam# [id number] Ordering Dr: George Bueno MD STUDY: DUAL [...] Rogelio Kumar MD at 13:55 EST Tel [phone], Service support [phone], CC: George Beuno MD Checker Loader: Signed 12-Aug-2013 Bilat Scrn Digital & CAD Result: Comments: See Note; NOTES: [facility] Imaging Services [address] [place] [address] Breast Imaging Report MR#: [id number] Acct: [id number] Name: GAYATRI NAQVI Rep #: [id number] : 1935 F 77 From: Rogelio Kumar MD PCP: George Bueno MD Status: REG I Exam# [id number] Ordering Dr: George Bueno MD MAMMOGRAPHY - [...] August 12 013 at 11:28:57 AM EST [phone] Electronically Signed GP/GP If you are the referring physician and would like to consult with the radiologist who provided this interpretation, please contact Rogelio Kumar M.D. at [phone]. If this radiologist is unavailable, you will be directed to another radiologist to assist. If you are a patient with a question regarding this report, pleas e contact your referring physician directly. Professional Interpretation Provided By: [employer], Phone , These documents contain legally protected [...] of these documents. CC: George Bueno MD Checker Loader: Signed Immunization Name Dates Details Zoster (shingles) [...] Area Calculated 1.66 m2 :23 Comments: visual fmqxmx-SU-79/40, OS-20/40, B/L-20/40 Temperature 98.1 f Comments: Method: [...] Comments: PATIENT NOT FASTINGPERFORMED BY: L[facility] [id number] [facility] [id number] Bacteria Few (Normal) Epithelial Cells (non renal) None seen {/hpf} (Normal) Range: 0 - 10 RBC None seen {/hpf} (Normal) Range: 0 - 2 WBC 0-5 {/hpf} (Normal) Range: 0 - 5 83-Bvh-412015:13 URINALYSIS, W/ MICRO (14760) Comments: PATIENT NOT FASTINGPERFORMED BY: [id number] [id number] Microscopic Examination See below: (Normal) Comments: Microscopic was indicated and was performed. Microscopic Examination MICRON (Normal) Comments: Microscopic follows if indicated. Nitrite, Urine Negative (Normal) Urobilinogen,Semi-Qn 0.2 mg/dL (Normal) Range: 0.2-1.0 Bilirubin Negative (Normal) Occult Blood Negative (Normal) Ketones Negative (Normal) Glucose Negative (Normal) Protein Negative (Normal) WBC Esterase Negative (Normal) Appearance Clear (Normal) Urine-Color Yellow (Normal) pH 7.0 (Normal) Range: 5.0-7.5 Specific [place] 1.009 (Normal) Range: 1.005-1.030 08-Gad-458144:57 Metabolic Panel, Comprehensive Comments: PATIENT NOT FASTINGPERFORMED BY: LabCoSt. Mary's HospitalIbowlh8057 [facility] [id number] (13611) ALT (SGPT) 28 [iU]/L (Normal) Range: 0-32 [...] 90 mg/dL (Normal) Range: 65-99 :57 TSH (72219) Comments: PATIENT NOT FASTINGPERFORMED BY: LabCoSt. Mary's HospitalCdajec1540 [facility] [id number] TSH 1.450 {uIU/mL} (Normal) Range: 0.450-4.500 :57 CBC, Platelets & Auto Diff Comments: PATIENT NOT FASTINGPERFORMED BY: LabCoSt. Mary's HospitalAiqloe0689 [facility] [id number] (58905) Immature Grans (Abs) 0.0 {x10E3/uL} (Normal) Range: [...] 3.77-5.28 WBC 7.8 {x10E3/uL} (Normal) Range: 3.4-10.8 09-Rob-658664:00 URINE CELINE CULTURE-IDENTIFICATN Comments: PATIENT NOT FASTINGPERFORMED BY: LATA [facility] Gicprw5075 [place] [id number] Information: SRC:UC (21467) Result 1 MUG (Normal) Comments: Mixed urogenital flora10,000-25,000 colony forming units per mL Urine Final report (Normal) Culture,Comprehensive 92-Nbq-337446:21 Urinalysis, Office (02165) UA - LEUKOCYTE ESTERASE Negative (Normal) UA - NITRITE Negative (Normal) URINE UROBILINGN JOSÉ MIGUEL TIMED Normal mg/dL (Normal) UA - PROTEIN Negative mg/dL (Normal) UA - PH 7 (Normal) UA - BLOOD Negative (Normal) UA - SPECIFIC GRAVITY 1.010 (Normal) UA - KETONES Moderate mg/dL (Normal) UA - BILIRUBIN Negative (Normal) UA - GLUCOSE Negative (Normal) 98-Khh-34293:30 Culture, Urine Comments: [facility] [place] Aualczpypp6151 [facility] [address] [place], [place], [id number] CUUR See Note (Normal) Comments: Urine CultureORGANISM 1: Mixed Gram Positive OrganismsColony Count 11,000-25,000MIX CULTURE Mixed contaminants. Submit a new specimen if indicated. :30 Urinalysis, Complete Comments: How was Urine Obtained? CLEAN [facility] Tmqwqxghvi6288 [facility] [address] [place], [place], [id number] MUCUS, URINE 0 SEEN {/hpf} (Normal) BACTERIA [...] (Normal) CLARITY Clear (Normal) COLOR Yellow (Normal) 75-Tcf-557008:39 Culture, Urine Comments: [facility] [place] Ezzrvhxtdr9[address] [place], [place], [id number] CUUR See Note (Normal) Comments: Urine CultureBelow infection level. ORGANISM 1: Mixed Gram Positive OrganismsColony Count 1000-10,000 73-Pmn-805965:39 Urinalysis, Complete Comments: How was Urine Obtained? NUCLEAR WASTE MANAGEMENT ENGINEER TO SPECIFYSelect Medical Specialty Hospital [facility] [place] Ftnxdhiqcl5597 [address] [place], [place], [id number] MUCUS, URINE 0 SEEN {/hpf} (Normal) BACTERIA [...] (Normal) CLARITY Clear (Normal) COLOR Yellow (Normal) [address]-83606:05 GZNSZ-ICNYJCQLGEF-UEJJX (38576) Comments: PATIENT WAS FASTINGPERFORMED BY: LabCoSt. Mary's HospitalRosghb7643 [facility] [id number] AFP, Serum, Tumor Marker 3.0 ng/mL (Normal) Range: 0.0-8.3 Comments: EXFO ECLIA methodology :05 TSH (THYROID STIMULATING Comments: PATIENT WAS FASTINGPERFORMED BY: [facility]6370 [facility] [id number] HORMONE) (80712) TSH 2.890 {uIU/mL} (Normal) Range: 0.450-4.500 :05 LIPID PANEL (66799) Comments: PATIENT WAS FASTINGPERFORMED BY: [facility]6370 [facility] [id number] LDL/HDL Ratio 1.9 {ratio_units} (Normal) Range: 0.0-3.2 [...] Auto Diff Comments: PATIENT WAS FASTINGPERFORMED BY: [place] 7376170 [facility] [id number] (56533) Immature Grans (Abs) 0.0 {x10E3/uL} (Normal) Range: [...] 3.77-5.28 WBC 6.4 {x10E3/uL} (Normal) Range: 3.4-10.8 96-Awu-77560:05 Metabolic Panel, Comprehensive Comments: PATIENT WAS FASTINGPERFORMED BY: LabCoSt. Mary's HospitalPzbwyc2319 [facility] [id number] (24920) ALT (SGPT) 31 [iU]/L (Normal) Range: 0-32 [...] mg/dL (Normal) Range: 65-99 :49 Rapid Flu (13362 x 2) Influenza A Ag Negative (Normal) :59 THROAT CULTURE (96621) Comments: PATIENT NOT FASTINGPERFORMED BY: [facility] [id number] Information: SRC:TH Result 1 RRF (Normal) Comments: Routine respiratory graeme Upper Respiratory Culture Final report (Normal) :54 Rapid Strep Test, Office (42530) Rapid Strep Test, Office Negative (Normal) :47 HgA1C , Office (38303) HgA1C , Office 5.8 % (Normal) Range: 4.6 - 7.1 :53 HEPATITIS PANEL (95181) Comments: today; PATIENT NOT FASTINGPERFORMED BY: [employer]70 [facility] [id number] Hep C Virus Ab <0.1 {s/co_ratio} (Normal) Range: 0.0-0.9 Comments: Negative: < 0.8 Indeterminate: 0.8 - 0.9 Positive: > 0.9 . The CDC recommends that a positive HCV antibody result be followed up with a HCV Nucleic Acid Amplification test (526134). Hep B Core Ab, IgM Negative (Normal) HBsAg Screen Negative (Normal) Hep A Ab, IgM Negative (Normal) :53 HEPATIC FUNCTION PANEL Comments: today; PATIENT NOT FASTINGPERFORMED BY: [facility] [id number] (02525) ALT (SGPT) 29 [iU]/L (Normal) Range: 0-32 AST (SGOT) 30 [iU]/L (Normal) Range: 0-40 Alkaline Phosphatase, S 53 [iU]/L (Normal) Range: 39-117 Bilirubin, Direct 0.18 mg/dL (Normal) Range: 0.00-0.40 Bilirubin, Total 0.5 mg/dL (Normal) Range: 0.0-1.2 Albumin, Serum 4.7 g/dL (Normal) Range: 3.5-4.7 Protein, Total, Serum 6.5 g/dL (Normal) Range: 6.0-8.5 6-Qsq-633423:53 AXPPN-KHEAFJNETCE-VILTU (70146) Comments: today; PATIENT NOT FASTINGPERFORMED BY: LabCoSt. Mary's HospitalXjicyh7163 [facility] [id number] AFP, Serum, Tumor Marker 3.0 ng/mL (Normal) Range: 0.0-8.3 Comments: Kristi ECLIA methodology 47-Nzt-001205:55 Basic Metabolic Profile (BMP) Comments: Order Date: 03/01/17Order Info: 0667-1 - *BMPOrder Info: 3026-2 - *T4 (Total)Comments: Reason:Order Info: 3016-3 - *TSHComments: Reason:[facility] [place] Gbrocuuwkx[address] [place], [address] ; cardio GAP 6 (Normal) Range: 5-15 [...] 7-18 GLU 96 mg/dL (Normal) Range: 70-110 12-Iau-515504:55 CBC-Complete Blood Cnt No Diff Comments: Order Date: 03/01/17Order Info: 93951-6 - *CBC without DiffComments: Reason:[facility] [place] Htywguvfne4[address] [place], [phone] MPV 9.6 fL (Normal) Range: 6.2-12.0 PLT [...] *T4 (Total)Comments: Reason:Order Info: 3016-3 - *TSHComments: Reason:[facility] [place] Nohjminobu68[address] [place], [id number] T4 THYROXIN 9.3 ug/dL (Normal) Range: 4.8-13.9 65-Dmk-671480:55 Thyroid Stim Hormone (TSH) Comments: Order Date: 03/01/17Order Info: 0667-1 - *BMPOrder Info: 3026-2 - *T4 (Total)Comments: Reason:Order Info: 3016-3 - *TSHComments: Reason:[facility] [place] Sjmyqyfqea9[address] [place], [id number](181 TSH 1.33 {uIU/mL} (Normal) Range: 0.358-3.74 3-Qti-664631:55 Urinalysis, Office (37277) UA - LEUKOCYTE ESTERASE Negative (Normal) UA - NITRITE Negative (Normal) URINE UROBILINGN JOSÉ MIGUEL TIMED Normal mg/dL (Normal) UA - PROTEIN Negative mg/dL (Normal) UA - PH 7.5 (Normal) UA - BLOOD Negative (Normal) UA - SPECIFIC GRAVITY 1.020 (Normal) UA - KETONES Negative mg/dL (Normal) UA - BILIRUBIN Negative (Normal) UA - GLUCOSE Negative (Normal) 6-Nmp-349758:17 URINE CELINE CULTURE-JOSÉ MIGUEL COL Comments: PATIENT NOT FASTINGPERFORMED BY: [facility] [employer] [facility] [id number] Information: SRC:UC COUNT (53647) Result 1 MUG (Normal) Comments: Mixed urogenital flora25,000-50,000 colony forming units per mL Urine Final report (Normal) Culture,Comprehensive 8-Vge-924335:05 Urinalysis, Office (33439) UA - LEUKOCYTE ESTERASE Small (Normal) UA - NITRITE Negative (Normal) URINE UROBILINGN JOSÉ MIGUEL TIMED Normal mg/dL (Normal) UA - PROTEIN Negative mg/dL (Normal) UA - PH 7 (Normal) UA - BLOOD Negative (Normal) UA - SPECIFIC GRAVITY 1.015 (Normal) UA - KETONES Small mg/dL (Normal) UA - BILIRUBIN Small (Normal) UA - GLUCOSE Negative (Normal) 07-Nov-20160:00 Culture, Urine Comments: [facility] [place] Mriznwnabc01[address] [place], [address] CUUR See Note (Normal) Comments: Urine CultureCulture exhibits no growth. :45 TSH (54241) Comments: PATIENT WAS FASTINGPERFORMED BY: [facility] Lwffik0832 [facility] [id number] TSH 2.950 {uIU/mL} (Normal) Range: 0.450-4.500 :45 Lipid Panel (91807) Comments: PATIENT WAS FASTINGPERFORMED BY: [facility]fortSt[facility]'s HospitalVgqayk0303 [facility] [id number]; OV 08/23 LDL/HDL Ratio 2.2 {ratio_units} (Normal) [...] Cholesterol, Total 231 mg/dL (Abnormal) Range: 100-199 95-Mos-22230:45 CBC, Platelets & Auto Diff Comments: PATIENT WAS FASTINGPERFORMED BY: LabCoSt. Mary's HospitalIbafgp9946 [facility] [id number] (78405) Immature Grans (Abs) 0.0 {x10E3/uL} (Normal) Range: [...] Panel, Comprehensive Comments: PATIENT WAS FASTINGPERFORMED BY: [facility] Bkzztc9591 [facility] [id number] (83274) ALT (SGPT) 30 [iU]/L (Normal) Range: 0-32 [...] Glucose, Serum 99 mg/dL (Normal) Range: 65-99 4-Enm-459325:00 MICROALBUMIN: CREATININE RATIO Comments: PATIENT WAS FASTINGPERFORMED BY: [facility] CenterZqpdoj6676 [facility] [id number] (96620) AND (25806) Microalb/Creat Ratio 9.2 {mg/g_creat} (Normal) Range: 0.0-30.0 Microalbumin, Urine 28.4 ug/mL (Normal) Creatinine, Urine 307.2 mg/dL (Normal) :00 METABOLIC PANEL, COMPREHENSIVE Comments: PATIENT WAS FASTINGPERFORMED BY: [facility] Djjcjr3533 [facility] [id number] (06264) ALT (SGPT) 23 [iU]/L (Normal) Range: 0-32 [...] mg/dL (Normal) Range: 65-99 :00 LIPID PANEL (74114) Comments: PATIENT WAS FASTINGPERFORMED BY: [facility] CenterXvyttu4601 [facility] [id number]; fu 6-13 with [facility] LDL/HDL Ratio 1.9 {ratio_units} (Normal) Range: 0.0-3.2 [...] Cholesterol, Total 211 mg/dL (Abnormal) Range: 100-199 0-Sid-500749:00 CBC with auto diff Comments: PATIENT WAS FASTINGPERFORMED BY: LabCoSt. Mary's HospitalJcqwcm2465 [facility] [id number] Information: [id number] (15434) Immature Grans (Abs) 0.0 {x10E3/uL} (Normal) Range: [...] 3.77-5.28 WBC 5.5 {x10E3/uL} (Normal) Range: 3.4-10.8 50-Bin-777132:55 Urinalysis, Office (41273) UA - LEUKOCYTE ESTERASE Small (Normal) UA [...] Microscopic Examination Comments: PATIENT WAS FASTINGPERFORMED BY: [employer] LabCoRepligenLymgzg4152 [facility] [id number] Bacteria Moderate (Abnormal) Mucus Threads Present (Normal) Epithelial Cells (non renal) >10 {/hpf} (Abnormal) Range: 0 - 10 RBC 0-2 {/hpf} (Normal) Range: 0 - 2 WBC 11-30 {/hpf} (Abnormal) Range: 0 - 5 :10 CALCIFIDIOL (40382) VIT D 25 Comments: PATIENT WAS FASTINGPERFORMED BY: [employer] [facility] Yqbvai5659 [facility] [id number] Vitamin D, 25-Hydroxy 30.0 ng/mL (Normal) Range: 30.0-100.0 Comments: Vitamin D deficiency has been defined by the [place] ofMedicine and an Endocrine Society practice guideline as alevel of serum 25-OH vitamin D less than 20 ng/mL (1,2).The Endocrine Society went on to further define vitamin Dinsufficiency as a level between 21 and 29 ng/mL (2).1. IOM ([place]ons of Medicine). 2010. Dietary reference intakes for calcium and D. [place]: The National Academies Press.2. Barb MF, Malachi NC, Bj LEAL, et al. Evaluation, treatment, and prevention of vitamin D deficiency: an Endocrine Society clinical practice guideline. JCEM. 2011 Apr; 96(7):1911-30. :10 URINALYSIS, W/ MICRO (39056) Comments: PATIENT WAS FASTINGPERFORMED BY: [facility]6370 [facility] [id number] Microscopic Examination See below: (Normal) Comments: Microscopic was indicated and was performed. Nitrite, Urine Negative (Normal) Urobilinogen,Semi-Qn 0.2 mg/dL (Normal) Range: 0.2-1.0 Bilirubin Negative (Normal) Occult Blood Negative (Normal) Ketones Negative (Normal) Glucose Negative (Normal) Protein 1+ (Abnormal) WBC Esterase 3+ (Abnormal) Appearance Cloudy (Abnormal) Urine-Color Yellow (Normal) pH 7.5 (Normal) Range: 5.0-7.5 Specific [place] 1.023 (Normal) Range: 1.005-1.030 :10 METABOLIC PANEL, COMPREHENSIVE Comments: PATIENT WAS FASTINGPERFORMED BY: [facility]6370 [facility] [id number] (24857) ALT (SGPT) 26 [iU]/L (Normal) Range: 0-32 [...] mg/dL (Normal) Range: 65-99 :10 LIPID PANEL (02218) Comments: PATIENT WAS FASTINGPERFORMED BY: [facility] HospitalAedjtu7911 [facility] [id number] LDL/HDL Ratio 1.9 {ratio_units} (Normal) Range: 0.0-3.2 [...] auto diff Comments: PATIENT WAS FASTINGPERFORMED BY: [facility]fort[facility]'s HospitalAqltwq2792 [facility] [id number] Information: [id number]; apt. 09-18-[birth year] (05365) Immature Grans (Abs) 0.0 {x10E3/uL} (Normal) Range: [...] With Differential/Platelet Comments: PATIENT WAS FASTINGPERFORMED BY: LabCoSt. Mary's HospitalDvzxup7593 [facility] [id number] Information: [id number] Immature Grans (Abs) 0.0 {x10E3/uL} (Normal) Range: [...] Panel (14) Comments: PATIENT WAS FASTINGPERFORMED BY: LabCoSt. Mary's HospitalIkeour4323 [facility] [id number] ALT (SGPT) 24 [iU]/L (Normal) Range: 0-32 [...] With LDL/HDL Comments: PATIENT WAS FASTINGPERFORMED BY: LSN MobileEllis Fischel Cancer CenterYsvrim3289 [facility] [id number] Ratio LDL/HDL Ratio 2.1 {ratio_units} (Normal) Range: [...] Clint Dale Comments: PATIENT WAS FASTINGPERFORMED BY: [facility]SN [facility]6370 [facility] [id number]; has fu 03-17-15 will review with her then Microalb/Creat Ratio 9.1 {mg/g_creat} Range: 0.0-30.0 (Normal) Microalbumin, Urine 25.2 ug/mL (Abnormal) Range: 0.0-17.0 Creatinine, Urine 278.2 mg/dL (Abnormal) Range: 15.0-278.0 Vitamin D, 25-Hydroxy 31.1 ng/mL (Normal) Comments: PATIENT WAS FASTINGPERFORMED BY: [facility]6370 [facility] [id number] :27 Range: 30.0-100.0 Comments: Vitamin D deficiency has been defined by the Clem[place] ofMedicine and an Endocrine Society practice guideline as alevel of serum 25-OH vitamin D less than 20 ng/mL (1,2).The Endocrine Society went on to further define vitamin Dinsufficiency as a level between 21 and 29 ng/mL (2).1. IOM ([place]ons of Medicine). 2010. Dietary reference intakes for calcium and D. [place]: The National Academies Press.2. Barb MF, Malachi BEYER, Bj LEAL, et al. Evaluation, treatment, and prevention of vitamin D deficiency: an Endocrine Society clinical practice guideline. JCEM. 2010; 96(7):1911-30. :35 Microscopic Examination Comments: PATIENT WAS FASTINGPERFORMED BY: [facility] Zyudpc6648 [facility] [id number] Bacteria None seen (Normal) Mucus Threads Present (Normal) Crystal Type Calcium Oxalate (Normal) Crystals Present (Abnormal) Epithelial Cells (non renal) 0-10 {/hpf} (Normal) Range: 0 - 10 RBC 0-2 {/hpf} (Normal) Range: 0 - 2 WBC 0-5 {/hpf} (Normal) Range: 0 - 5 :06 Rapid Strep Test, Office (52249) Rapid Strep Test, Office Negative (Normal) :03 Rapid Flu (25659 x 2) Influenza A Ag neg (Normal) :35 URINALYSIS, W/ MICRO (29876) Comments: 09-14; PATIENT WAS FASTINGPERFORMED BY: [facility] Fksvvx6498 [facility] [id number] Microscopic Examination See below: (Normal) Comments: Microscopic was indicated and was performed. Nitrite, Urine Negative (Normal) Urobilinogen,Semi-Qn 1.0 mg/dL (Normal) Range: 0.0-1.9 Bilirubin Negative (Normal) Occult Blood Negative (Normal) Ketones Trace (Abnormal) Glucose Negative (Normal) Protein 1+ (Abnormal) WBC Esterase Trace (Abnormal) Appearance Clear (Normal) Urine-Color Yellow (Normal) pH 6.5 (Normal) Range: 5.0-7.5 Specific [place] 1.029 (Normal) Range: 1.005-1.030 :35 CBC, Platelets & Auto Diff Comments: 09-14; PATIENT WAS FASTINGPERFORMED BY: LATA [employer]70 [employer] [facility] [id number] Information: [id number] (60676) Immature Grans (Abs) 0.2 {x10E3/uL} Range: 0.0-0.1 [...] Comments: 09-14; PATIENT WAS FASTINGPERFORMED BY: LATA [employer]70 [facility] [id number] (05231) ALT (SGPT) 16 [iU]/L (Normal) Range: 0-32 [...] mg/dL (Normal) Range: 65-99 08-Sep-20149:35 Lipid Panel (59757) Comments: 12-14; PATIENT WAS FASTINGPERFORMED BY: LATA [facility] Oonjiy2604 [facility] [id number] LDL/HDL Ratio 1.7 {ratio_units} (Normal) Range: 0.0-3.2 [...] Cholesterol, Total 215 mg/dL (Abnormal) Range: 100-199 84-Pmq-738527:12 Metabolic Panel, Basic Comments: today; PATIENT NOT FASTINGPERFORMED BY: [employer]70 [facility] [id number] Information: [id number],NURSE DRAW (84041) Calcium, Serum 10.6 mg/dL (Abnormal) Range: 8.6-10.2 [...] Comments: 4 months; PATIENT WAS FASTINGPERFORMED BY: [employer]6370 [facility] [id number] Information: [id number] COMPREHENSIVE (49996) ALT (SGPT) 24 [iU]/L (Normal) Range: 0-32 [...] mg/dL (Normal) Range: 65-99 06-Jan-20148:06 LIPID PANEL (53009) Comments: 4 months; PATIENT WAS FASTINGPERFORMED BY: [employer]70 [facility] [id number] LDL/HDL Ratio 2.0 {ratio_units} (Normal) Range: 0.0-3.2 LDL Cholesterol Calc 145 mg/dL (Abnormal) Range: 0-99 VLDL Cholesterol Thanh 22 mg/dL (Normal) Range: 5-40 HDL Cholesterol 71 mg/dL (Normal) Comments: According to ATP-III Guidelines, HDL-C >59 mg/dL is considered anegative risk factor for CHD. Triglycerides 111 mg/dL (Normal) Range: 0-149 Cholesterol, Total 238 mg/dL (Abnormal) Range: 100-199 5-Wty-052464:03 Potassium Serum (00762) Comments: today; PATIENT NOT FASTINGPERFORMED BY: [employer]70 [facility] [id number] Information: [id number] Potassium, Serum 3.7 mmol/L (Normal) Range: 3.5-5.2 44-Lrq-160443:41 MICROALBUMIN: CREATININE Comments: PATIENT NOT FASTINGPERFORMED BY: [facility]SN [facility]6370 [facility] [id number] Information: [id number] RATIO (43840) AND (25719) Microalb/Creat Ratio 6.9 {mg/g_creat} (Normal) Range: 0.0-30.0 Microalbumin, Urine 19.6 ug/mL (Abnormal) Range: 0.0-17.0 Creatinine, Urine 282.6 mg/dL (Abnormal) Range: 15.0-278.0 46-Mzr-37945:57 METABOLIC PANEL, COMPREHENSIVE Comments: PATIENT WAS FASTINGPERFORMED BY: LSN [facility]6370 [facility] [id number] (60655) ALT (SGPT) 26 [iU]/L (Normal) Range: 0-32 [...] mg/dL (Normal) Range: 65-99 :57 LIPID PANEL (61531) Comments: PATIENT WAS FASTINGPERFORMED BY: [facility] HospitalZfxzjg4859 [facility] [id number] LDL/HDL Ratio 1.7 {ratio_units} (Normal) Range: 0.0-3.2 [...] MANUAL DIFF Comments: PATIENT WAS FASTINGPERFORMED BY: [facility] HospitalQklfvn9480 [facility] [id number] Information: [id number] (49813) Immature Grans (Abs) 0.0 {x10E3/uL} (Normal) Range: [...] CREATININE RATIO Comments: PATIENT WAS FASTINGPERFORMED BY: TestifSt. Mary's HospitalTvsloj3565 [facility] [id number] (74803) AND (03258) Microalb/Creat Ratio 4.0 {mg/g_creat} (Normal) Range: 0.0-30.0 Microalbumin, Urine 8.3 ug/mL (Normal) Range: 0.0-17.0 Creatinine, Urine 206.4 mg/dL (Normal) Range: 15.0-278.0 :29 METABOLIC PANEL, COMPREHENSIVE Comments: PATIENT WAS FASTINGPERFORMED BY: TestifSt. Mary's HospitalQclmyx1586 [facility] [id number] (40070) ALT (SGPT) 22 [iU]/L (Normal) Range: 0-32 [...] mg/dL (Normal) Range: 65-99 :29 LIPID PANEL (75836) Comments: PATIENT WAS FASTINGPERFORMED BY: [employer]70 [facility] [id number] LDL/HDL Ratio 1.9 {ratio_units} (Normal) Range: 0.0-3.2 [...] MANUAL DIFF Comments: PATIENT WAS FASTINGPERFORMED BY: [employer]6370 [facility] [id number] Information: [id number] (72966) Immature Grans (Abs) 0.0 {x10E3/uL} (Normal) Range: [...] Ambiguous Default Comments: PATIENT WAS FASTINGPERFORMED BY: LabCoSt. Mary's HospitalPoabuw6576 [facility] [id number] Immature Grans (Abs) 0.0 {x10E3/uL} (Normal) Range: [...] PANEL, COMPREHENSIVE Comments: PATIENT WAS FASTINGPERFORMED BY: LabCoSt. Mary's HospitalGfhmtw6222 [facility] [id number] (58799) ALT (SGPT) 22 [iU]/L (Normal) Range: 0-32 [...] mg/dL (Normal) Range: 65-99 :06 LIPID PANEL (96558) Comments: PATIENT WAS FASTINGPERFORMED BY: [facility] Iylahq0764 [facility] [id number] LDL/HDL Ratio 1.2 {ratio_units} (Normal) Range: 0.0-3.2 LDL Cholesterol Calc 95 mg/dL (Normal) Range: 0-99 VLDL Cholesterol Thanh 13 mg/dL (Normal) Range: 5-40 HDL Cholesterol 80 mg/dL (Normal) Comments: According to ATP-III Guidelines, HDL-C >59 mg/dL is considered anegative risk factor for CHD. Triglycerides 64 mg/dL (Normal) Range: 0-149 Cholesterol, Total 188 mg/dL (Normal) Range: 100-199 :59 Urinalysis, Office (90012) UA - BILIRUBIN Negative (Normal) UA - [...] Kumar M.D.March 29, 2012 at 8:59:04 AM [phone] Signed GP/GP If you are the referring [...] on 03/29/12904 Sign by: Rogelio Kumar MD 23-Jpg-86014:00 BILAT SCRN DIGITAL & CAD Radiology Report [...] Kumar M.D.March 28, 2012 at 9:07:04 AM [phone] Signed GP/GP If you are the referring physician and would like to consult with theradiologist who provided this interpretation, please contact Miracle Dale at . If this radiologist is unavailable,youwill be directed to another radiologist to assist. If you are a patient with a question regarding this report, pleasecontactyour referring physician directly. Professional Interpretation Provided By: [facility], Phone , Dictated on 03/28/12 084 7 by Jake ALEXANDRE,EjriVamsiranscribed on 03/28/12 1125 by ITS IMPORTSign by Jake ALEXANDRE,Rogelio on 03/28/12 1126 Sign by: Rogelio Kumar MD 76-Jdt-51845:17 LIPID PANEL (29665) Comments: PATIENT NOT FASTINGPERFORMED BY: [employer] [facility] [id number] LDL Cholesterol Calc 93 mg/dL (Normal) Range: 0-99 LDL/HDL Ratio 1.3 {ratio_units} (Normal) Range: 0.0-3.2 VLDL Cholesterol Thanh 22 mg/dL (Normal) Range: 5-40 HDL Cholesterol 73 mg/dL (Normal) Comments: According to ATP-III Guidelines, HDL-C >59 mg/dL is considered anegative risk factor for CHD. Triglycerides 112 mg/dL (Normal) Range: 0-149 Cholesterol, Total 188 mg/dL (Normal) Range: 100-199 14-Zzo-23721:17 HEPATIC FUNCTION PANEL Comments: PATIENT NOT FASTINGPERFORMED BY: [employer] [facility] [id number] Information: ADD DRAW FEE 100548 ADD J0 9402 (22696) ALT (SGPT) 28 [iU]/L (Normal) Range: 0-40 AST (SGOT) 29 [iU]/L (Normal) Range: 0-40 Alkaline Phosphatase, S 54 [iU]/L (Normal) Range: 25-165 Bilirubin, Direct 0.20 mg/dL (Normal) Range: 0.00-0.40 Bilirubin, Total 0.7 mg/dL (Normal) Range: 0.0-1.2 Albumin, Serum 4.6 g/dL (Normal) Range: 3.5-4.8 Protein, Total, Serum 6.5 g/dL (Normal) Range: 6.0-8.5 :30 CBC WITH MANUAL DIFF Comments: PATIENT WAS FASTINGPERFORMED BY: Testif Rfalfl0939 [facility] [facility] [id number] Information: [id number] (62172) Immature Grans (Abs) 0.0 {x10E3/uL} (Normal) Range: [...] 3.80-5.10 WBC 4.8 {x10E3/uL} (Normal) Range: 4.0-10.5 45-Puo-48177:30 LIPID PANEL (58196) Comments: PATIENT WAS FASTINGPERFORMED BY: LabCoSt. Mary's HospitalEihbyo1320 [facility] [id number]; OV 02/28/12 LDL/HDL Ratio 2.1 {ratio_units} (Normal) [...] PANEL, COMPREHENSIVE Comments: PATIENT WAS FASTINGPERFORMED BY: [facility] [id number] (98145) ALT (SGPT) 19 [iU]/L (Normal) Range: 0-40 [...] Glucose, Serum 98 mg/dL (Normal) Range: 65-99 29-Mda-97533:30 MICROALBUMIN: CREATININE RATIO Comments: PATIENT WAS FASTINGPERFORMED BY: [employer]70 [facility] [id number] (08884) AND (13568) Microalb/Creat Ratio 5.5 {mg/g_creat} (Normal) Range: 0.0-30.0 [...] regarding this repo rt, please call our 61Y2ptnzmoz line @ Dictated on 01/24/12 0917 by [...] regarding this report, ple ase call our 81V8ifszyvw line @ Dictated on 01/03/12 1257 by Rakesh Benavidez MDTranscribed on 01/04/12 1540 by ITS IMPORTSign by Rakesh Benavidez MD on 01/04/12 1540 Sign by: Rakesh Benavidez MD 12-Lea-49417:30 MYOCARD PERF STRESS/REST MULT Radiology Report See Note (Normal) Comments: EXERCISE STRESS TEST HISTORYA 75-year-old lady with history of abnormal EKG. MDBGANZZA55.0 mCi of Sestamibi was injected at rest. [...] fraction. Dic tated on 06/30/11 0134 by Cornlel Allen MDlTranscribed on 07/01/11 0530 by Esmer CEDILLO by Jose Allen MD on 07/10/11 1645 Sign by: ___ Jose Allen MD 95-Qrj-807073:03 Creatinine Clearance Comments: PERFORMED BY: RadioRx6370 [facility] [id number] Information: 06/26/11@7AM 06/27/11@7AM Creatinine Clearance 68 mL/min [...] Creatinine, Serum 0.94 mg/dL (Normal) Range: 0.57-1.00 38-Lgo-416480:03 Protein Total, Qn, 24-Hr Comments: PERFORMED BY: RadioRx6370 [facility] [id number] Urine Prot,24hr calculated <31.5 {mg/24_hr} (Normal) Range: 30.0-150.0 Protein,Total,Urine <1.5 mg/dL (Normal) Range: 0.0-15.0 Comments: Verified by repeat analysis :21 LIPID PANEL (86584) Comments: in three months (approximately); PATIENT WAS FASTINGPERFORMED BY: RadioRx6370 [facility] [id number] Information: [id number] LDL/HDL Ratio 2.1 {ratio_units} (Normal) Range: 0.0-3.2 LDL Cholesterol Calc 151 mg/dL (Abnormal) Range: 0-99 VLDL Cholesterol Thnah 22 mg/dL (Normal) Range: 5-40 HDL Cholesterol 73 mg/dL (Normal) Comments: According to ATP-III Guidelines, HDL-C >59 mg/dL is considered anegative risk factor for CHD. Triglycerides 109 mg/dL (Normal) Range: 0-149 Cholesterol, Total 246 mg/dL (Abnormal) Range: 100-199 :23 Microscopic Examination Comments: PATIENT WAS FASTINGPERFORMED BY: LSN MobileCoSt. Mary's HospitalSzxbpi8755 [facility] [id number] Bacteria Few (Normal) Mucus Threads Present (Normal) Crystal Type Amorphous Sediment (Normal) Crystals Present (Abnormal) Cast Type Hyaline casts (Normal) Casts Present {/lpf} (Abnormal) Epithelial Cells (non renal) 0-10 {/hpf} (Normal) Range: 0 - 10 RBC 4-10 {/hpf} (Abnormal) Range: 0 - 3 WBC 0-5 {/hpf} (Normal) Range: 0 - 5 CBC WITH MANUAL DIFF (07796) Comments: PATIENT WAS FASTINGPERFORMED BY: LabPublicateSt. Mary's HospitalFpnzgk6714 [facility] [id number] Immature Grans (Abs) 0.0 {x10E3/uL} (Normal) Range: [...] {x10E3/uL} (Normal) Range: 4.0-10.5 :23 LIPID PANEL (20105) Comments: PATIENT WAS FASTINGPERFORMED BY: [facility]fortSt. Mary's HospitalZjbogt6930 [facility] [id number] LDL/HDL Ratio 2.0 {ratio_units} (Normal) Range: 0.0-3.2 [...] PANEL, COMPREHENSIVE Comments: PATIENT WAS FASTINGPERFORMED BY: [facility]fortSt. Mary's HospitalDzbzpr5324 [facility] [id number] (50534) ALT (SGPT) 32 [iU]/L (Normal) Range: 0-40 [...] Glucose, Serum 93 mg/dL (Normal) Range: 65-99 40-Sqb-46558:23 URINALYSIS, W/ MICRO (37713) Comments: PATIENT WAS FASTINGPERFORMED BY: LabCoSt. Mary's HospitalHsgoik7891 [facility] [id number]; appt 06/23/11 Microscopic Examination See below: (Normal) Nitrite, Urine Negative (Normal) Urobilinogen,Semi-Qn 0.2 mg/dL (Normal) Range: 0.0-1.9 Bilirubin Negative (Normal) Occult Blood Negative (Normal) Ketones Negative (Normal) Glucose Negative (Normal) Protein 1+ (Abnormal) WBC Esterase Negative (Normal) Appearance Cloudy (Abnormal) Urine-Color Yellow (Normal) pH 6.5 (Normal) Range: 5.0-7.5 Specific [place] 1.028 (Normal) Range: 1.005-1.030 31-Qra-906598:23 BILAT SCRN DIGITAL & CAD Radiology Report [...] on 01/25/111 Sign by: ELVIS SMITH MD 41-Lqz-996942:01 Urinalysis, Office (67572) UA - BILIRUBIN Negative (Normal) UA - [...] Microscopic Examination Comments: PATIENT WAS FASTINGPERFORMED BY: Proc[employer]Safe70 [facility]As[facility] [id number] Bacteria Few (Normal) Mucus Threads Present (Normal) Epithelial Cells (non renal) 0-10 {/hpf} (Normal) Range: 0 - 10 RBC 0-3 {/hpf} (Normal) Range: 0 - 3 WBC 0-5 {/hpf} (Normal) Range: 0 - 5 :28 LIPID PANEL (02772) Comments: PATIENT WAS FASTINGPERFORMED BY: ProcureSafe70 [facility]UNC [facility] [id number] LDL/HDL Ratio 1.4 {ratio_units} (Normal) Range: 0.0-3.2 HDL Cholesterol 76 mg/dL (Normal) Comments: According to ATP-III Guidelines, HDL-C >59 mg/dL is considered anegative risk factor for CHD. LDL Cholesterol Calc 110 mg/dL (Abnormal) Range: 0-99 VLDL Cholesterol Thanh 23 mg/dL (Normal) Range: 5-40 Cholesterol, Total 209 mg/dL (Abnormal) Range: 100-199 Triglycerides 117 mg/dL (Normal) Range: 0-149 :28 URINALYSIS, W/ MICRO (62750) Comments: PATIENT WAS FASTINGPERFORMED BY: TestifSt. Mary's HospitalJkvisf8863 [facility] [id number] Microscopic Examination See below: (Normal) Bilirubin Negative (Normal) Nitrite, Urine Negative (Normal) Occult Blood Negative (Normal) Urobilinogen,Semi-Qn 0.2 mg/dL (Normal) Range: 0.0-1.9 Appearance Clear (Normal) Glucose Negative (Normal) Ketones Negative (Normal) Protein 1+ (Abnormal) WBC Esterase Negative (Normal) pH 6.0 (Normal) Range: 5.0-7.5 Specific [place] 1.031 (Abnormal) Range: 1.005-1.030 Urine-Color Yellow (Normal) :28 METABOLIC PANEL, COMPREHENSIVE Comments: PATIENT WAS FASTINGPERFORMED BY: TestifSt. Mary's HospitalNsichs3223 [facility] [id number] (15404) Alkaline Phosphatase, S 47 [iU]/L (Normal) Range: [...] Glucose, Serum 98 mg/dL (Normal) Range: 65-99 42-Igq-78395:28 CBC WITH MANUAL DIFF Comments: PATIENT WAS FASTINGPERFORMED BY: LabCoSt. Mary's HospitalGyjlzw4448 [facility] [id number] Information: [id number] (63675) Immature Grans (Abs) 0.0 {x10E3/uL} (Normal) Range: [...] on 09/06/10 0749 Sign by: Pao Cristobal 87-Gur-492544:35 N-Telopeptide, Urine Comments: PERFORMED BY: ESTELLA [facility] [address] [id number] BY: LATA [facility] Tebwuz5053 [facility] [id number] Information: 06/23@7AM 06/24@7AM Interpretive Guide: SPRCS (Normal) [...] 1.4 p=0.2838- 51 2.5 p=0.0351- 67 3.8 p=0.565448-042 17.3 p=0.01242. Menopausal Women Receiving Antiresorptive Therapy: Theprobability that treatment is effective after threemonths is increased when the measured NTx va lue is<or=38 nM BCE/mM BUDDHIST MONK, or NTx has decreased >or=30% frombaseline (1)..3. [...] N-telopeptide 34 {nmol_BCE} (Normal) :11 Urinalysis, Office (44096) UA - LEUKOCYTE ESTERASE Negative (Normal) UA - NITRITE Negative (Normal) URINE UROBILINGN JOSÉ MIGUEL TIMED 2 mg/dL (Normal) UA - PROTEIN Negative mg/dL (Normal) UA - PH 6.0 (Normal) UA - BLOOD Hemolyzed Trace (Normal) UA - SPECIFIC GRAVITY 1.020 (Normal) UA - KETONES Small mg/dL (Normal) UA - BILIRUBIN Small (Normal) UA - GLUCOSE Negative (Normal) 2-Sep-50934:16 MYOCARD PERF STRESS/REST MULT Radiology Report See Note (Normal) Comments: Exam Number: [id number] MYOCARDIAL PERFUSION SCAN TECHNIQUEThe patient was injected [...] of 62%. Reported By: ROMEL SILVERIO M.D. 05-Gxi-332472:11 BRAIN W/WO CONTRAST Radiology Report See Note (Normal) Comments: Exam Number: [id number] CLINICAL:73-year-old female with tremors for over one [...] ischemic changes. Reported By: ELVIS BEARD M.D. 49-Euv-594214:39 Basic Metabolic Panel (8) Comments: A courtesy copy of this report has been sent [phone].PERFORMED BY: [facility]6370 [facility] [id number] Information: [id number] Calcium, Serum 9.7 mg/dL (Normal) Range: 8.6-10.2 [...] CREATININE RATIO Comments: PATIENT WAS FASTINGPERFORMED BY: [employer]6370 [facility] [id number] (52822) AND (69814) Microalb/Creat Ratio 4.3 {mg/g_creat} (Normal) Range: 0.0-30.0 Microalbumin, Urine 6.1 ug/mL (Normal) Range: 0.0-17.0 Creatinine, Urine 140.7 mg/dL (Normal) Range: 15.0-278.0 :15 METABOLIC PANEL, COMPREHENSIVE Comments: PATIENT WAS FASTINGPERFORMED BY: [employer]6370 [address] [facility] HospitalLadies Who LaunchUNC Health Nash [id number] (85521) ALT (SGPT) 30 [iU]/L (Normal) Range: 0-40 [...] mg/dL (Normal) Range: 65-99 :15 LIPID PANEL (08217) Comments: PATIENT WAS FASTINGPERFORMED BY: [employer]6370 [facility] [id number] LDL Cholesterol Calc 150 mg/dL (Abnormal) Range: [...] MANUAL DIFF Comments: PATIENT WAS FASTINGPERFORMED BY: [employer]70 [facility] [id number] Information: ADD [id number] AND DRAW FEE 99 4398 (22639) Immature Grans (Abs) 0.0 {x10E3/uL} (Normal) Range: [...] 3.80-5.10 WBC 6.0 {x10E3/uL} (Normal) Range: 4.0-10.5 62-Uoi-148544:33 CELINE CULTURE-OTHER (97973) Comments: PATIENT NOT FASTINGPERFORMED BY: LabCoSt. Mary's HospitalDydwkr2337 [facility] [id number] Information: SRC:THRT [id number] Result 1 RRF (Normal) Comments: Routine respiratory graeme Upper Respiratory Culture Final report (Normal) 45-Xdo-920860:14 Rapid Strep Test, Office (93110) Rapid Strep Test, Office Negative (Normal) 40-Zzs-801328:38 BRAIN/HEAD W/WO CONTRAST Radiology Report See Note (Normal) Comments: Exam Number: [id number] CT SCAN OF THE HEAD Multiple axial [...] without intravenous contrast. Reported By: ROGELIO KUMAR 70-Upd-094053:47 BILAT SCRN DIGITAL & CAD Radiology Report See Note (Normal) Comments: Exam Number: [id number] MAMMOGRAM, BILATERAL SCREENING DIGITAL AND CAD HISTORYRoutine screening. Full field digital images were obtained in mediolateral oblique andcraniocaudal projections. CAD images w ere reviewed. The current study is compared to the examinations of June and September 08, 2008 from the [facility]. There is moderately dense fibroglandular parench yma [...] mammograms werealso examined with computer-aided detection software ([employer] Reported By: ELVIS SMITH M.D. 20-Jvg-119911:46 DEXA BONE DENSITY STUDY (HP) Radiology Report See Note (Normal) Comments: Exam Number: [id number] DEXA AXIAL SKELETON A DEXA scan was [...] IMPRESSIONOsteopenia. Reported By: ROGELIO KUMAR :14 TSH (34509) Comments: PATIENT WAS FASTINGPERFORMED BY: LabCo Adfwuf6332 [facility] [id number] TSH 1.980 {uIU/mL} (Normal) Range: 0.450-4.500 :14 METABOLIC PANEL, COMPREHENSIVE Comments: PATIENT WAS FASTINGPERFORMED BY: [facility] Heiuid6995 [facility] [id number] (27286) ALT (SGPT) 17 [iU]/L (Normal) Range: 0-40 [...] mg/dL (Normal) Range: 65-99 :14 LIPID PANEL (88895) Comments: PATIENT WAS FASTINGPERFORMED BY: [employer] LabDaylight Digital70 [facility] [id number] HDL Cholesterol 84 mg/dL (Normal) Comments: According [...] MANUAL DIFF Comments: PATIENT WAS FASTINGPERFORMED BY: LabCoRepligenAtnidl8674 [facility] [id number] Information: [id number],[id number] (97237) Baso (Absolute) 0.1 {x10E3/uL} (Normal) Range: 0.0-0.2 [...] 3.80-5.10 WBC 6.3 {x10E3/uL} (Normal) Range: 4.0-10.5 18-Klh-042980:23 Urinalysis, Office (19833) UA - BILIRUBIN Negative (Normal) UA - BLOOD Negative (Normal) UA - GLUCOSE Negative (Normal) UA - KETONES Negative mg/dL (Normal) UA - LEUKOCYTE ESTERASE Negative (Normal) UA - NITRITE Negative (Normal) UA - PH 7.0 (Normal) UA - PROTEIN Negative mg/dL (Normal) UA - SPECIFIC GRAVITY 1.010 (Normal) URINE UROBILINGN JOSÉ MIGUEL TIMED Normal mg/dL (Normal) 17-Gtz-560065:48 Hepatic Function Panel (7) Comments: PERFORMED BY: LabCoSt. Mary's HospitalOqepij1166 [facility] [id number] Albumin, Serum 4.4 g/dL (Normal) Range: 3.5-4.8 Alkaline Phosphatase, S 57 [iU]/L (Normal) Range: 25-165 ALT (SGPT) 25 [iU]/L (Normal) Range: 0-40 AST (SGOT) 27 [iU]/L (Normal) Range: 0-40 Bilirubin, Direct 0.14 mg/dL (Normal) Range: 0.00-0.40 Bilirubin, Total 0.4 mg/dL (Normal) Range: 0.1-1.2 Protein, Total, Serum 6.4 g/dL (Normal) Range: 6.0-8.5 :29 Urinalysis, Office (73586) UA - BILIRUBIN Negative (Normal) UA - [...] Comments: PATIENT NOT FASTINGClinical Information: SRC:UR ADD [id number] PERFORMED BY: [facility]UNC [facility] [id number] COUNT (98855) Result 1 NG36 (Normal) Comments: No growth in 36 - 48 hours. Urine Culture,Comprehensive Final report (Normal) :50 Metabolic Panel, Basic (21196) Comments: PATIENT NOT FASTINGClinical Information: ADD DRAW FEE [id number] ADD J 32576 PERFORMED BY: [facility] [id number] BUN 16 mg/dL (Normal) Range: 5-26 BUN/Creatinine [...] mmol/L (Normal) Range: 135-145 :58 Urinalysis, Office (09600) UA - BILIRUBIN Negative (Normal) UA - BLOOD Hemolyzed Trace (Normal) UA - GLUCOSE Negative (Normal) UA - KETONES Negative mg/dL (Normal) UA - LEUKOCYTE ESTERASE Negative (Normal) UA - NITRITE Negative (Normal) UA - PH 7.0 (Normal) UA - PROTEIN Negative mg/dL (Normal) UA - SPECIFIC GRAVITY 1.010 (Normal) URINE UROBILINGN JOSÉ MIGUEL TIMED 2 mg/dL (Normal) 0-Ekg-372969:23 SHOULDER,MIN 2 VIEWS Radiology Report See Note (Normal) Comments: Exam Number: [id number] SHOULDER SERIES. HISTORYA 73-year-old woman with right shoulder pain. FINDINGSRight shoulder series. Cortical outlines are intact. Bones arenormally aligned, and joint spaces ar e well maintained. Soft tissuesare unremarkable. IMPRESSIONUnremarkable right shoulder series. Reported By: DAYNA RECINOS M.D. :07 Hepatic Function Panel (7) Comments: PATIENT WAS FASTINGPERFORMED BY: [facility] [id number] Albumin, Serum 4.3 g/dL (Normal) Range: 3.5-4.8 Alkaline Phosphatase, S 63 [iU]/L (Normal) Range: 25-165 ALT (SGPT) 27 [iU]/L (Normal) Range: 0-40 AST (SGOT) 29 [iU]/L (Normal) Range: 0-40 Bilirubin, Direct 0.10 mg/dL (Normal) Range: 0.00-0.40 Bilirubin, Total 0.3 mg/dL (Normal) Range: 0.1-1.2 Protein, Total, Serum 7.0 g/dL (Normal) Range: 6.0-8.5 :38 TSH (28400) Comments: PATIENT NOT FASTINGClinical Information: ADD DRAW FEE 026522 ADD J 62782 PERFORMED BY: [facility] [id number] TSH 1.604 {uIU/mL} (Normal) Range: 0.450-4.500 :25 Metabolic Panel, Comprehensive Comments: PATIENT WAS FASTINGClinical Information: ADD 252742, N90849 PERFORMED BY: [facility] [id number] (38112) A/G Ratio 2.4 (Normal) Range: 1.1-2.5 Albumin, [...] mmol/L (Normal) Range: 135-145 :25 Lipid Panel (24298) Comments: in six months (approximately); PATIENT WAS FASTINGPERFORMED BY: [facility] Lktocm0860 [facility] [id number] Cholesterol, Total 256 mg/dL (Abnormal) Range: 100-199 HDL Cholesterol 73 mg/dL (Normal) Comments: According to ATP-III Guidelines, HDL-C >59 mg/dL is considered anegative risk factor for CHD. LDL Cholesterol Calc 156 mg/dL (Abnormal) Range: 0-99 LDL/HDL Ratio 2.1 {ratio_units} (Normal) Range: 0.0-3.2 Triglycerides 133 mg/dL (Normal) Range: 0-149 VLDL Cholesterol Thanh 27 mg/dL (Normal) Range: 5-40 :20 Urinalysis, Office (29561) UA - BILIRUBIN Negative (Normal) UA - [...] Report See Note (Normal) Comments: Exam Number: [id number] MYOCARDIAL PERFUSION SCAN 11.7 millicuries of Tc99m [...] By: JOSE ALLEN M.D. :55 Urinalysis, Office (62027) UA - BILIRUBIN Negative (Normal) UA - [...] EARLY ANTIGN Comments: PATIENT NOT FASTINGPERFORMED BY: LabCoSt. Mary's HospitalYvselu5715 [facility] [id number] (44670) EBV Ab VCA, IgG 1276 AU/mL (Abnormal) [...] Clinical Information: SRC:TH PERFORMED BY: LATA [facility] Ddskod[address] [place] [id number] Result 1 RRF (Normal) Comments: Routine respiratory graeme Upper Respiratory Culture Final report (Normal) :48 Rapid Strep Test, Office (49344) Comments: neg Rapid Strep Test, Office Negative [...] T PROT 7.0 g/dL (Normal) Range: 6.4-8.2 70-Vmc-08850:20 LIPID CHOL 238 mg/dL (Abnormal) Comments: <200 [...] mg/dL VLDL 13 mg/dL (Normal) Range: 5-40 78-Yll-415409:41 URINE CELINE CULTURE-JOSÉ MIGUEL COL Comments: PATIENT NOT FASTINGClinical Information: SRC:UR PERFORMED BY: LabCoSt. Mary's HospitalAmyrxt6504 [facility] [id number] COUNT (14981) Result 1 NG36 (Normal) Comments: No growth in 36 - 48 hours. Urine Culture,Comprehensive Final report (Normal) 03-Mpp-601506:30 Urinalysis, Office (09594) UA - LEUKOCYTE ESTERASE Trace (Normal) UA - NITRITE Negative (Normal) UA - PH 7.5 (Normal) UA - PROTEIN Negative mg/dL (Normal) URINE UROBILINGN JOSÉ MIGUEL TIMED 2 mg/dL (Normal) UA - BILIRUBIN Negative (Normal) UA - BLOOD Negative (Normal) UA - GLUCOSE Negative (Normal) UA - KETONES Negative mg/dL (Normal) UA - SPECIFIC GRAVITY 1.010 (Normal) 13-Vqf-596556:09 URINE CELINE CULTURE (JOSÉ MIGUEL COL Comments: PATIENT NOT FASTINGClinical Information: SRC:UR ADD [id number] PERFORMED BY: LATA [facility] Luoqfh[address] [place] [id number] COUNT) (22440) Antimicrobial MIHEAD (Normal) Comments: S = Susceptible; [...] mL (Normal) Urine Final report Culture,Comprehensive (Normal) 49-Ajn-857688:56 Urinalysis, Office (92390) UA - BILIRUBIN Negative (Normal) UA - BLOOD Non Hemolyzed Trace (Normal) UA - GLUCOSE Small (Normal) UA - KETONES Small mg/dL (Normal) UA - LEUKOCYTE ESTERASE Small (Normal) UA - NITRITE Positive (Normal) UA - PH 6.0 (Normal) UA - PROTEIN 300 mg/dL (Normal) UA - SPECIFIC GRAVITY 1.020 (Normal) URINE UROBILINGN JOSÉ MIGUEL TIMED 2 mg/dL (Normal) 32-Huc-64626:12 L/S SPINE,MIN 4 VIEWS Radiology Report See Note (Normal) Comments: Exam Number: [id number] LUMBAR SPINE, FIVE VIEWS. INDICATIONLow back pain. [...] pain, right Knee pain, right : Reviewed Trial Lawyer Letter Indication: Knee pain, right Knee pain, [...] : Follow up in [facility] Med Indication: Osteoporosis Osteoporosis [...] back pain Planned Observations URINE CELINE CULTURE-IDENTIFICATN (20651)Indication: Right flank pain On: 5-Pkn-149428:15 Request CALCIFIDIOL (24476) VIT D 25Indication: Osteoporosis On: 63-Qnm-207653:51 Request MICROALBUMIN: CREATININE RATIO (57611) AND (76418)Indication: Hypertension On: 10-Tvk-726555:51 Request METABOLIC PANEL, COMPREHENSIVE (89450)Indication: Hypertension On: 27-Sgv-234913:51 Request LIPID PANEL (52667)Indication: Hypertension On: 95-Kum-665823:51 Request CBC W/AUTO DIFF WBC (89495)Indication: Hypertension On: 16-Xoq-508018:51 Request URINALYSIS, W/ MICRO (99651)Indication: Hypertension On: 51-Bds-199898:10 Request METABOLIC PANEL, COMPREHENSIVE (20911)Indication: Hypertension On: 92-Jlk-467896:10 Request LIPID PANEL (01742)Indication: Hypertension On: 29-Rsa-492016:10 Request CBC WITH MANUAL DIFF (89249)Indication: Hypertension On: 32-Xkk-925904:10 Request CBC, PLATELETS & MANUAL DIFF (10539)Indication: Hypertension On: 3-Mgz-305720:12 Request MICROALBUMIN: CREATININE RATIO (01010) AND (84481)Indication: Hypertension On: 19-Eah-285441:43 Request METABOLIC PANEL, COMPREHENSIVE (24443)Indication: Hypertension On: 75-Qqv-865771:43 Request LIPID PANEL (29568)Indication: Hypertension On: 21-Vmx-029205:43 Request CBC WITH MANUAL DIFF (84180)Indication: Hypertension On: 80-Epf-468131:43 Request CREATININE CLEARANCE (92326)Indication: Proteinuria On: 88-Mzu-509014:12 Request Comments: now 24 hour urine for Protein (49947)Indication: Proteinuria On: 88-Aon-515550:12 Request Collagen Crosslinked N-Telopeptide (71703)Indication: Osteoporosis On: 55-Duz-28259:59 Request Comments: 24 hour urine check now and in six months (approximately) HEPATIC FUNCTION PANEL (79911)Indication: oncomycosis On: 25-Blv-59135:03 Request Comments: monthly x 3 EB ANTIBODY VIRAL CAPSID (79925) W2Eyqorrmdrw: Pharyngitis, acute On: 51-Ubd-963971:13 Request EB ANTIBODY NUCLR ANTIGN (09676)Indication: Pharyngitis, acute On: 81-Abp-738468:13 Request CELINE CULTURE-OTHER (84674)Indication: Pharyngitis, acute On: 71-Lrt-97926:48 Request URINALYSIS W/O MICRO (11555)Indication: Hypertension On: 04-Znb-89331:16 Request METABOLIC PANEL, COMPREHENSIVE (07021)Indication: Hypertension On: :16 Request CBC WITH MANUAL DIFF (49220)Indication: Hypertension On: :16 Request Comments: in six months (approximately) LIPID PANEL (94154)Indication: Hypertension On: 33-Cym-35569:16 Request CBC (Auto) (04792)Indication: Hypercholesterolemia On: 77-Aev-39702:24 Request Metabolic Panel, Comprehensive (39535)Indication: Hypercholesterolemia On: :24 Request Lipid Panel (32140)Indication: Hypercholesterolemia On: 55-Boa-86665:24 Request Comments: in six months (approximately) Metabolic Panel, Comprehensive (67608)Indication: Hypercholesterolemia On: 60-Kty-548994:09 Request Lipid Panel (13590)Indication: Hypercholesterolemia On: 42-Jip-255075:09 Request Comments: 4m Planned Encounters Medical; 3 Month FU - On: 08-Oct-2018 13:45 [facility] Nguyen Santana CNP, CNP Mary Planned Procedures ELECTROCARDIOGRAM, COMPLETE (ECG) On: 30-Jul-2018 Intent (88559)By: Zoraida Stewart Comments: Sinus Rhythm-HR 86-occasional ectopic ventricular beat-No new changes from last EKG. SCREENING DIGITAL TOMOSYNTHESIS OF On: 11-Jun-2018 Intent BREAST (73554)By: Nguyen Santana CNP, CNP Mary DEXA SCAN AXIAL SKELETON (02337)By: On: 11-Jun-2018 Intent Nguyen Santana CNP, CNP Mary Flu Vaccine (Quadrivalent) 52485Te: On: 11-Jun-2018 Intent Max GIVENS MaryAnselmo Santana CNP Mary Aerosol Treatment (68552)By: Terry, On: 09-Nov-2017 Intent Zoraida Comments: Better air exchange after aerosol treatment. Holter Monitor 24 hrsBy: Max GIVENS, On: 15-Sep-2017 Intent Nguyen Santana CNP Mary Spirometry (12111)By: Max GIVENS, On: 15-Sep-2017 Intent Nguyen Santana CNP Mayr Comments: mod severe restriction ELECTROCARDIOGRAM, COMPLETE (ECG) On: 15-Sep-2017 Intent (57598)By: Nguyen Santana CNP Comments: sinus bradycardia Nguyen GIVENS MAGNETIC RESONANCE IMAGING OF RIGHT On: 05-Jul-2017 Intent KNEE WITHOUT CONTRAST (18799)By: Nguyen Santana CNP, CNP Mary Flu Vaccine (Quadrivalent) 51760Vg: On: 14-Jun-2017 Intent Nguyen Santana CNP, CNP Mary Comments: Lot:[id number]:03/19/18Dose:0.5mLRoute:IMSite:L DltdGiven By:asVIS signed Ultrasound - LiverBy: Nguyen Santana CNP On: 08-Mar-2017 Intent E Nguyen Santana CNP Comments: REpeat in Jun 2017 CT - Abdomen & Pelvis Stone On: 30-Nov-2016 Intent ProtocolBy: Nguyen Santana CNP, CNP, Mary E Flu Vaccine (Quadrivalent) 34380Wv: On: 23-Aug-2016 Intent Slafreida AGRICULTURAL ENGINEERING TECHNICIANSJo Flu Vaccine (Quadrivalent) 89302Vr: On: 15-Sep-2015 Intent George Bueno MD Comments: lot [id number]: 03/31/2016site/route L jean, IMamt 0.5mlVIS and ABN signed when applicableChelsea, BOILERMAKER FITTER Kenalog Injection, 10 mgm (J3301)By: On: 20-Mar-2015 Intent George Bueno MD Comments: x4 TDAP VACCINE >7 IM (23068)By: Ximena On: 17-Mar-2015 George Mayer MD MRI - Shoulder(s) - RightBy: Ximena On: 17-Mar-2015 George Mayer MD ADMINISTRATION OF INFLUENZA VIRUS On: 16-Sep-2014 Intent VACCINE ([id number])By: George Bueno MD Flu Vaccine (Quadrivalent) [id number]: On: 16-Sep-2014 Intent George Bueno MD ELECTROCARDIOGRAM, COMPLETE (ECG) On: 16-Sep-2014 Intent ([id number])By: George Bueno MD Comments: routine for baseline see scanned document of test done to see results reviewed today with patient Aerosol Treatment ([id number])By: Max On: 01-Sep-2014 Intent Nguyen GIVENS CNP, [...] BONE DENSITY, AXIAL SKELETON On: 14-Jan-2014 Intent ([id number])By: George Bueno MD MAMMOGRAM, SCREENING, BOTH BREASTS On: 14-Jan-2014 Intent ([id number])By: George Bueno MD Eprescribed prescriptions ([id number])By: On: 14-Jan-2014 Intent George Bueno MD FLU VAC, SPLIT, >3 YEARS, INTRAMUSC On: 06-Sep-2013 Intent ([id number])By: PAM Sanz Comments: Lot #:[id number] date:ount given:0.5mlRoute: IMSite given:L DltdGiven by: VIS and ABN signed ADMINISTRATION OF INFLUENZA VIRUS On: 06-Sep-2013 Intent VACCINE ([id number])By: PAM Sanz Breast Screening - BilateralBy: On: 05-Jul-2013 Intent George Bueno MD Eprescribed prescriptions ([id number])By: On: 07-Mar-2013 Intent Shelby Padilla ELECTROCARDIOGRAM, COMPLETE (ECG) On: 14-Dec-2012 Intent ([id number])By: Nguyen Santana CNP, CNP, Mary E ADMINISTRATION OF INFLUENZA VIRUS On: 11-Sep-2012 Intent VACCINE (G0008)By: George Bueno MD FLU VAC, SPLIT, >3 YEARS, INTRAMUSC On: 11-Sep-2012 Intent ([id number])By: George Bueno MD Eprescribed prescriptions ([id number])By: On: 29-May-2012 Intent George Bueno MD EKG ([id number])By: George Bueno MD On: 28-Feb-2012 Intent Comments: see scanned document of test done to see results reviewed today with patient Holter Monitor 24 hrsBy: Ximena ALEXANDRE, On: 28-Feb-2012 Intent George Moncada DXA, BONE DENSITY, AXIAL SKELETON On: 28-Feb-2012 Intent ([id number])By: George Bueno MD MAMMOGRAM, SCREENING, BOTH BREASTS On: 28-Feb-2012 Intent ([id number])By: George Bueno MD Pulse Oximetry ([id number])By: Yvon On: 28-Feb-2012 Intent PAM Ultrasound - AortaBy: Ximena ALEXANDRE, On: 17-Jan-2012 Intent George Moncada Carotid DopplerBy: George Bueno MD On: 17-Jan-2012 Intent Pulse Oximetry (11701)By: Yvon On: 17-Jan-2012 Intent PAM Spirometry ([id number])By: Max GIVENS, On: 10-Jan-2012 Intent Nguyen Skinner CNP Comments: Servere airway obstruction with low vital capacity Aerosol Treatment (30760)By: Max On: 10-Jan-2012 Intent Nguyen GIVENS CNP, Mary E Solu -Medrol Injection, 125 mg On: 03-Jan-2012 Intent ([id number])By: Nguyen Santana CNP Comments: Lot # [id number]-R hip. IMDose 125nggiven by:Nguyen Lane CNP Radiology - ChestBy: Nguyen Santana CNP On: 03-Jan-2012 Intent Nguyen Mata CNP Aerosol Treatment ([id number])By: Max On: 03-Jan-2012 Intent Nguyen GIVENS CNP, Mary E Pulse Oximetry ([id number])By: Gab BETHEA, On: 03-Jan-2012 Intent Taryn Solu -Medrol Injection, 125 mg On: 30-Dec-2011 Intent ([id number])By: Nguyen Santana CNP Comments: Lot #[id number]-left hipDose-125mggiven by: Marie Alvarado LPN CNP, Mary E Aerosol Treatment ([id number])By: Max On: 30-Dec-2011 Intent Nguyen GIVENS CNP, Mary E Solu -Medrol Injection, 125 mg On: 28-Dec-2011 Intent ([id number])By: Nguyen Santana CNP Comments: Lot #[id number]-right hipDose-125 mggiven by: Marie Alvarado LPN CNP, Mary E Aerosol Treatment ([id number])By: Max On: 28-Dec-2011 Intent Nguyen GIVENS E Max GIVENS, Mary Pulse Oximetry ([id number])By: Max GIVENS, On: 26-Dec-2011 Intent Mary Max GIVENS, Mary Aerosol Treatment ([id number])By: Max On: 26-Dec-2011 Intent CHON, Mary Max GIVENS, Mary FLU VAC, SPLIT, >3 YEARS, INTRAMUSC On: 19-Aug-2011 Intent ([id number])By: George Bueno MD Comments: refuse Echo CompleteBy: George Bueno MD On: 23-Jun-2011 Intent Nuclear Stress Test/Stress On: 23-Jun-2011 Intent SPECT/TreadmillBy: George Bueno MD EKG ([id number])By: George Bueno MD On: 23-Jun-2011 Intent ADMINISTRATION OF PNEUMOCOCCAL On: 15-Dec-2010 Intent VACCINE (G0009)By: George Bueno MD PNEUM VAC ADLT/IMUMNOSPR, SBC/INTRM On: 15-Dec-2010 Intent ([id number])By: George Bueno MD MAMMOGRAM, SCREENING, BOTH BREASTS On: 15-Dec-2010 Intent ([id number])By: George Bueno MD Eprescribed prescriptions ([id number])By: On: 15-Dec-2010 Intent George Bueno MD Aerosol Treatment ([id number])By: Ximena On: 06-Dec-2010 Intent George ALEXANDRE Pulse Oximetry (10056)By: Yvon On: 06-Dec-2010 Intent PAM Spirometry ([id number])By: Ximena ALEXANDRE, On: 31-Aug-2010 Intent George Moncada Radiology - ChestBy: George Bueno MD On: 31-Aug-2010 Intent M Nuclear Stress Test/Stress On: 27-May-2010 Intent SPECT/TreadmillBy: George Bueno MD ELECTROCARDIOGRAM, COMPLETE (ECG) On: 27-May-2010 Intent ([id number])By: George Bueno MD Spirometry ([id number])By: Ximena ALEXANDRE, On: 27-May-2010 Intent George Moncada Pulse Oximetry (51713)By: Ximena ALEXANDRE, On: 27-May-2010 Intent George Moncada MRI - BrainBy: George Bueno MD On: 27-May-2010 Intent Aerosol Treatment ([id number])By: Feliciano DRUMMOND, On: 22-Mar-2010 Intent Holly A Pulse Oximetry (02655)By: Ashlee, On: 22-Mar-2010 Intent Stephanie Comments: 95%- spirometry with mod airway obsst CT - Brain/Head (IV Contrast On: 04-Feb-2010 Intent Needed)By: George Bueno MD Comments: attention posterior fossa EKG (20427)By: George Bueno MD On: 01-Jan-2010 Intent DXA, BONE DENSITY, AXIAL SKELETON On: 01-Jan-2010 Intent ([id number])By: George Bueno MD MAMMOGRAM, SCREENING, BOTH BREASTS On: 01-Jan-2010 Intent ([id number])By: George Bueno MD MRI - Shoulder(s) - RightBy: Ximena On: 01-Jan-2010 Intent George ALEXANDRE Radiology - Shoulder - RightBy: On: 07-Jan-2009 Intent George Bueno MD Holter Monitor 24 hrsBy: Ximena ALEXANDRE, On: 09-Dec-2008 Intent George Moncada ELECTROCARDIOGRAM, COMPLETE (ECG) On: 09-Dec-2008 Intent ([id number])By: George Bueno MD Spirometry ([id number])By: Ximena ALEXANDRE, On: 09-Dec-2008 Intent George Moncada Pulse Oximetry (30313)By: Ximena ALEXANDRE, On: 09-Dec-2008 Intent George Moncada EKG ([id number])By: George Bueno MD On: 29-May-2008 Intent Nuclear Stress Test/Stress On: 29-May-2008 Intent SPECT/TreadmillBy: George Bueno MD Pulse Oximetry (59106)By: Daniel ALBA, On: 13-Mar-2008 Intent Gin SPECIMEN HNDLNG/TRNSPRT, OFFC > LAB On: 13-Mar-2008 Intent ([id number])By: Gin Sanchez LPN Echo CompleteBy: George Bueno MD On: 29-Nov-2007 Intent Radiology - Lumbar SpineBy: Ximena On: 29-May-2007 George Mayer MD Radiology - Ankle - LeftBy: Ximena On: 28-Jun-2006 George Mayer MD Planned Medications INJECTION, METHYLPREDNISOLONE SODIUM SUCCINATE, UP TO 125 MG Ordered: 28-Dec-2011 Pending Ciesa A P SUPERVISOR, Mary Ciesa A P SUPERVISOR, Mary INJECTION, METHYLPREDNISOLONE SODIUM SUCCINATE, UP TO 125 MG Ordered: 30-Dec-2011 Pending Ciesa A P SUPERVISOR, Mary Ciesa A P SUPERVISOR, Mary INJECTION, METHYLPREDNISOLONE SODIUM SUCCINATE, UP TO 125 MG Ordered: 03-Jan-2012 Pending Ciesa A P SUPERVISOR, Mary Ciesa A P SUPERVISOR, Mary INJECTION, TRIAMCINOLONE ACETONIDE, NOT OTHERWISE SPECIFIED, [...] Indication: Hypertension Hypertension : DISCONTINUED - URINALYSIS (15856) Indication: Hypertension Hypertension : DISCONTINUED - MICROALBUMIN: CREATININE RATIO (06640) AND (51395) Indication: Hypertension Screening for breast cancer : DISCONTINUED - BILATERAL MAMMOGRAMS (20149) Indication: Screening for breast cancer Osteoporosis : [...] The patient does have durable power of traffic law attorney and living will. The patient has noticed dropping activities and interests, poor spirits most of time, staying at home rather than doing something new or going out, having problems with memory than others, feeling worthless and lack of energy. Other providers contributing to the patient's care are district resource officer (nusrat) and other: (last eye exam 2017- dr. whaley). Note for Annual Medicare Exam: [...] several years, has had colonoscopy's last by [facility] and normal. Encounter Diagnosis: Nonsmoker, BMI 27.0-27.9,adult, [...] using antibiotics. Note for Infection: went to [facility] urgent care last was put on [...] Need for immunization against influenza), Mitral Valve Ujlomkumwliai686.6), Osteoporosis (733.00), Irritable bowel syndrome (564.1), ATHEROSCLEROSIS, AORTIC (440.0), Anxiety (300.00), History of colon polyps, Asthma, intrinsic, mild intermittent, with status asthmaticus, Osteoarthritis, Shoulder pain (719.41), Allergic rhinitis [facility] Visit On: 19-Mar-2015 10:42 Encounter Reason: Injections - The medication the patient is here to receive is other (2 cc marcaine lot# [id number] exp: 01-31-2016 1cc kenalog lot# [id number] exp right shoulder ).Encounter Diagnosis: Shoulder pain [...] The patient does have durable power of traffic law attorney and living will. The patient has noticed nothing from the geriatic depression scale. Other providers contributing to the patient's care are district resource officer (Dr Silverio) and other: (Dr ridley saw [...] (733.00), Hypercholesterolemia (272.0), Osteoarthritis (715.96), Mitral Valve Sbuntzghijsyg512.6), Colon Polyps, History of (V12.72), Asthma,Intrinsic (493.11), [...] incontinence, female, Fever and chills, Mitral Valve Vtrdpqslffenh300.6), Colon Polyps, History of (V12.72), Irritable bowel [...] (493.11), Irritable bowel syndrome (564.1), Mitral Valve Qvwrrsgdabbbw420.6), Colon Polyps, History of (V12.72), Osteoporosis (733.00), [...] The patient does have durable power of traffic law attorney and living will. The patient has noticed having problems with memory than others. Other providers contributing to the patient's c are are district resource officer (Dr Silverio) and other: (Dr Rodrigues and [...] (401.0)), Osteoarthritis (715.96), Anxiety (300.00), Mitral Valve Ixzqjogwgnjvt767.6), Osteoporosis (733.00), Allergic Rhinitis(477.9), Tremors (781.0), ATHEROSCLEROSIS, [...] from Hypertension (401.0)), Anxiety (300.00), Mitral Valve Uipevxqztduyv426.6), Hypercholesterolemia (272.0), Asthma,Intrinsic (493.11), Colon Polyps, History [...] from Hypertension (401.0)), Anxiety (300.00), Mitral Valve Naruqzcqqhvqs553.6), Osteoarthritis (715.96), Osteoporosis (733.00), Allergic Rhinitis(477.9), ATHEROSCLEROSIS, [...] (733.00), Hypercholesterolemia (272.0), Asthma,Intrinsic (493.11), Mitral Valve Yqbanysxbbdol098.6), Sleep disorder (780.50), ATHEROSCLEROSIS, AORTIC (440.0), Anxiety [...] ATHEROSCLEROSIS, AORTIC (440.0), Bradycardia (427.89), Mitral Valve Xfaqkulpcodpv023.6), Hip bursitis 726.5, Hypercholesterolemia (272.0), Anxiety (300.00), [...] Hypercholesterolemia (272.0), ATHEROSCLEROSIS, AORTIC (440.0), Mitral Valve Fmywdbaaqadyn833.6), Hip bursitis 726.5 [facility] [...] Anxiety (300.00), Chronic cough (786.2), Mitral Valve Pgnawvfrcdjqm743.6), Irritable bowel syndrome (564.1), Asthma,Intrinsic (493.11), Colon [...] Sleep disorder (780.50), Tremors (781.0), Mitral Valve Dpwtyucapuguy310.6), Anxiety (300.00), Osteoporosis (733.00), Irritable bowel syndrome [...] from Hypertension (401.0)), Tremors (781.0), Mitral Valve Bcxavassgbsdm002.6), WWV-Bare, Shoulder pain (719.41), Headache (784.0), Irritable [...] (427.89), Irritable bowel syndrome (564.1), Mitral Valve Suzyzpckcblsj122.6), Headache (784.0), WWV-Bare [facility] [...] (427.89), Irritable bowel syndrome (564.1), Mitral Valve Wxpwmnmhuwxqt759.6), Other specified pruritic conditions (698.8), Headache (784.0) [...] (788.1), Low back pain (724.2), Mitral Valve Eyvzyeegxidmg222.6), Osteopenia (733.90), Diarrhea (787.91), Sleep disorder (780.50), [...] (733.90), Acute sinusitis, unspecified (461.9), Mitral Valve Zhcjgrqbtvpxu852.6), WWV-Bare, Low back pain (724.2), Sciatica (724.3), [...] were reported. none reported. Note for Sinusitis/: Fraser heat over bodyEncounter Diagnosis: ACUTE PHARYNGITIS (462.), [...] (272.0), Osteoarthritis (715.96), Allergic Rhinitis(477.9), Mitral Valve Epyyjncxaoqhi548.6), Low back pain (724.2), Sciatica (724.3), WWV-Bare [...] (845.09), Hypertension (401.0), Hypercholesterolemia (272.0), Mitral Valve Zlqzatojmjiae057.6), Sciatica (724.3), Allergic Rhinitis(477.9), WWV-Bare, Low back [...] (715.96), Hypercholesterolemia (272.0), Osteopenia (733.90), Mitral Valve Segrzrxeszxzr102.6), WWV-Bare, Sciatica (724.3) [facility] Refill [...]
--- OUTSIDE RECORDS SUMMARY | 2018-10-28 14:11 | XMS RPT_ITS | Continuity of Care Document ---
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 MRI done and went to [facility]. 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 wheezing is better. echo, [...] qd (137 MCG/SPRAY) Active CALCIUM + D, 890-270NK-IBPW (Oral Tablet) 1 qd for 0 days [...] 8 hours prn (10 MG) Inactive Comments:Dr. iVdes LAMISIL, 250MG (Oral Tablet) Tablet QD for [...] days Quantity: 14 {Capsule} Refills: 0 Ordered:08-Nov-2016 Mxa GIVENS, Nguyen Dover CNP Start : 08-Nov-2016 End : 08-Nov-2016 Inactive Comments:[facility] Meloxicam 7.5 MG Oral Tablet 1 (one) Tablet daily as directed for 0 days Quantity: 30 {Tablet} Refills: 0 Ordered:19-Dec-2017 Long GREEN END MAN, Ariana L Start : 15-Sep-2017 End : [...] : 10-Nov-2017 End : 19-Dec-2017 Inactive ZOSTAVAX, 35357QCY/0.65ML (Subcutaneous Solution Reconstituted) 1 For Solution once [...] : 15-Sep-2015 End : 15-Sep-2015 Discontinued Creon 59958 UNIT Oral Capsule Delayed Release Particles 2 [...] good [facility]. [facility] Status: Inactive as of 19-Mar-2015 Other [...] Comments: See Note; NOTES: [facility] [address] [place] [address] OFFICE VISIT Date of Service: 03/31/18 MR#: [id number] Acct: [id number] Name: GAYATRI NAQVI Rep #: [id number] : 1935 Provider: RHODA Cisse Age/Sex: 82/F Location: [facility] Status: Signed Intake Vital Signs03/31/18 Height 5 [...] Medications New: nitrofurantoin monohyd/m-cryst 100 mg (Macrobid) tmudah208 mg PO Q12H 7 days UTI N39.0 [...] Visit Report Result: Comments: See Note; NOTES: [facility] [place] [address] OFFICE VISIT Date of Service: 02/28/18 MR#: [id number] Acct: [id number] Name: GAYATRI NAQVI Rep #: [id number] : 1935 Provider: Romel Silverio MD Age/Sex: 82/F Location: [facility] Status: Signed HPI HPI Details: GAYATRI [...] hypertension I10 02/28/18 1403 <Electronically signed by Roeml Silverio MD> Date ___ Romel Silverio MD Cosigner Signature: Date (if applicable) CC: Nguyen Santana PARAFFINER; Dayna Byrne MD 09-Feb-2018 Urgent Care Visit Report Result: Comments: See Note; NOTES: [facility] [address] [place] [address] OFFICE VISIT Date of Service: 02/09/18 MR#: [id number] Acct: [id number] Name: GAYATRI NAQVI Rep #: [id number] : 1935 Provider: Anjle DUONG Age/Sex: 82/F Location: [facility] Status: Signed Intake Vital Signs02/09/18 Height 5 [...] Comments: See Note; NOTES: [facility] [address] [place] [address] OFFICE VISIT Date of Service: 01/26/18 MR#: [id number] Acct: [id number] Name: GAYATRI NAQVI Rep #: [id number] : 1935 Provider: Anjel DUONG Age/Sex: 82/F Location: [facility] Status: Signed Intake Vital Signs01/26/18 Height 5 [...] changes Exam Const General: cooperative, healthy appearing [facility] Head: normal to inspection Ears: hearing grossly [...] the above. This note was generated with [employer] software. It may contain incorrect words, spelling, [...] Only (Routine) Result: Comments: See Note; NOTES: [facility] Imaging Services [address] [place] [address] Lower Ext Joint Only (Routine) MR#: [id number] Acct: [id number] Name: GAYATRI NAQVI Rep # : [id number] : 1935 F 81 From: Gianluca Camarena MD PCP: Nguyen Santana Status: REG CLI Study: Lower Ext Joint Only (Routine) Date of Exam: 07/13/17 Exam# [id number] Ordering Dr: Nguyen Santana STUDY: MRI RIGHT [...] , Service support , CC: Nguyen Santana Health Plan Manager: Signed 07-Jul-2017 PT D/C Summary (1) Result: Comments: See Note; NOTES: [facility] [address] [place] [address]. [address] [place] [address] Fax REHABILITATION SERVICES DISCHAR GE SUMMARY MR#: [id number] Acct: [id number] Name: GAYATRI NAQVI Rep #: [id number] : 1935 81 From: Levon Jay DPT, OCS, CSCS Referring DrLizzy: Nguyen Santana Status: REG RCR Insurance: [employer] C[employer] MEDICARE HP - PT D/C Summary [...] degeneratwed medial knee. MRI is approp. Medial department head [employer] brace may be approp after MRI if other options not available(injection, Ortho) If there are questions or concerns regarding this patient's physical therapy, please feel free to call me at [phone]. Thank you for the referral of this patient. Sincerely, Levon Jay DPT, DORA <Electronically signed by Levon Jay DPT, PITO, CSCS> 07/07/17 0642 CC: Nguyen Santana EBG Signed 21-Jun-2017 Inital Evaluation (1) - PT Result: Comments: See Note; NOTES: [facility] [address] [place] [address]. [address] [place] [address] Fax REHABILITATION SERVICES INITIAL EVALUATION MR#: [id number] Acct: [id number] Name: GAYATRI NAQVI Rep #: [id number] [...] to be FAXED BACK to us at [phone] for Medicare purposes. Please let me know if there are questions or concerns regarding this plan of care. Physician Signature: Date: & amp;#60;Electronically signed by Levon Jay DPT, OCS, CSCS> 06/21/17 0736 CC: Nguyen Santana EBG Signed For Medicare only, by signing this I certify the plan of care . Physicians Signature Date 06-Jun-2017 Discharge Instruction Result: Comments: See Note; NOTES: [facility] Medical Records Department [address] [place] [address] Discharge Instruction 06/06/17 2317 MR#: [id number] Acct: [id number] Name: MONET NAQVI Rep #: [id number] : 1935 81 From: Po Herrera MD [...] your Primary Care Provider. Call [facility] ([phone]) or rep ort to the closest Emergency Room. Call 911 if necessary. 06/06/172317 <Electronically signed by Po Herrera MD> Date Po Herrera MD Cosigner Signature (If Indicated): Date CC: Nguyen Santana 06-Jun-2017 Emergency Department Summary Result: Comments: See Note; NOTES: [facility] Medical Records Department [address] [place] [address] Emergency Department Summary 06/06/172311 MR#: [id number] Acct: [id number] Name: GAYATRI NAQVI Rep #: [id number] : 1935 81 From: Po Herrera MD [...] Primary Care Provider. Call [facility] ([phone]) or report to the closest Emergency Room. Call 911 if necessary. 06/06/17 2317 <Electronically signed by Po Herrera MD> Date Po Herrera MD Cosigner Signature (If Indicated): Date CC: Nguyen Brittanyadrien 06-Jun-2017 Knee 4 or More Views Result: Comments: See Note; NOTES: [facility] Imaging Services [address] [place] [address] Knee 4 or More Views MR#: [id number] Acct: [id number] Name: DRISSGAYATRI Rep #: [id number] : 1935 F 81 From: Stephanie Diaz MD PCP: Nguyen Santana Status: REG ER Study: Knee 4 or More Views Date of Exam: 06/06/17 Exam# [id number] Ordering Dr: Po Herrera MD STUDY: X-RAY [...] Stephanie Diaz MD at 23:01 EDT Tel [phone], Service support , CC: Nguyen Santana; Po Herrera MD Health Plan Manager: Signed 06-Jun-2017 Liver Result: Comments: See Note; NOTES: [facility] Imaging Services [address] [place] [address] Liver MR#: [id number] Acct: [id number] Name: GAYATRI NAQVI Rep #: [id number] : [birth year] F 81 From: Rogelio Kumar MD PCP: Nguyen Santana Status: REG CLI Study: Liver Date of Exam: 06/06/17 Exam# [id number] Ordering Dr: Nguyen Santana STUDY: ABDOMINAL ULTRASOUND [...] Kumar MD at 11:47 EDT Tel [phone], Service support , CC: Nguyen Santana Health Plan Manager: Signed 27-Mar-2017 Echocardiogram Complete Result: Comments: See Note; NOTES: [facility] Cardiovascular Services [address] [place] [address] Echo Complete 03/24/17 08 MR#: [id number] Acct: [id number] Name: GAYATRI NAQVI ep #: [id number] : 1935 81 From: Romel Silverio MD Attending Dr: Romel Silverio MD Status: REG I Ordering Dr: Romel Silverio MD Date: 03/24/17 Location: [facility] Sex: F C Admitted: Reason For Study: [...] Referring Physician: Nguyen Santana Performed By: Alice Trores RDCS Electronically s igned by: Romel Silverio MD on 03/24/2017 06:33 PM 03/24/171832 Date Romel Silverio MD CC: Nguyen Santana; Romel Silverio MD Date Dictated: 03/24/17 0 822 Date Transcribed: 03/24/171832 Health Plan Manager: Signed 24-Mar-2017 Nuclear Stress Test - Treadmil Result: Comments: See Note; NOTES: [facility] Imaging Services [address] [place], [place] [address] [place] [address] Howardgeorge 4d Nuclear Stress Test - Treadmil MR#: [id number] Acct: [id number] Name: JULIUS NAQVI Rep #: [id number] : 1935 81 From: Romel Silverio MD [...] 71%. Romel Silverio MD T: NTS JOB: [id number] 03/25/17 0927 <Electronically signed by Romel Silverio MD> Date Romel Silverio MD CC: Nguyen Santana; Romel Silverio MD Date Dictated: 03/24/17 1146 Date Transcribed: 03/24/17 1146 Health Plan Manager: Signed 03-Mar-2017 Chest PA and Lateral Result: Comments: See Note; NOTES: [facility] Imaging Services [address] [place] [address] Verdana 4d Chest PA and Lateral MR#: [id number] Acct: [id number] Name: GAYATRI NAQVI Rep #: [id number] : 1935 F 81 From: Rogelio Kumar MD PCP: Nguyen Santana Status: REG CLI Study: Chest PA and Lateral Date of Exam: 03/03/17 Exam# [id number] Ordering Dr: Romel Silverio MD STUDY : [...] Kumar MD at 13:42 EDT Tel [phone], Service support , CC: Nguyen Santana; Romel Silverio MD Health Plan Manager: Signed 12-Dec-2016 Abdomen/Pelvis without Cont Result: Comments: See Note; NOTES: [facility] Imaging Services [address] [place] [address] Verdana 4d Abdomen/Pelvis without Cont MR#: [id number] Acct: [id number] Name: GAYATRI NAQVI Rep #: [id number] : 1935 F 81 From: Philipp Moody MD PCP: Nguyen Santana Status: REG CLI Study: Abdomen/Pelvis without Cont Date of Exam: 12/12/16 Exam# [id number] Ordering Dr: Nguyen Santana JULIANN DY: CT [...] of the osseous structures. ORD ER #: [id number] CT/Abdomen/Pelvis without Cont IMPRESSION: Fatty liver. There are multiple colonic diverticula consistent with diverticulosis. 21mm hypodense lesion in the inferior right lobe of the l iver. This is incompletely evaluated and on contrast enhanced study. Other findings as above. Electronically Signed: Philipp Moody MD at 22:28 EDT , Service support [phone], CC: Nguyen Santana Health Plan Manager: Signed 22-Sep-2016 Upper Ext Joint Only(Routine) Result: Comments: See Note; NOTES: [facility] Imaging Services [address] [place] [address] Verda 4d Upper Ext Joint Only(Routine) MR#: [id number] Acct: [id number] Name: BERNICE NAQVI JOSEPH Briones Rep #: [id number] : 1935 F 80 From: Emmanuel Guido MD PCP: Nguyen Santana Status: REG CLI Study: Upper Ext Joint Only(Routine) Date of Exam: 09/22/16 Exam# [id number] Ordering Dr: Adilene Byrd DO STUDY: MRI [...] MD at 17:06 EST , Service support [phone], CC: Nguyen Santana; Sonia Byrd DO Health Plan Manager: Signed 08-Sep-2016 Shoulder min 2 Views Result: Comments: See Note; NOTES: [facility] Imaging Services [address] [place] [address] Verdana 4d Shoulder min 2 Views MR#: [id number] Acct: [id number] Name: GAYATRI NAQVI Rep #: [id number] : 1935 F 80 From: Emmanuel Guido MD PCP: Nguyen Santana Status: REG CLI Study: Shoulder min 2 Views Date of Exam: 09/08/16 Exam# [id number] Ordering Dr: Sonia Byrd DO STUDY: X-RA [...] at 11:28 EST Tel , Service support [phone], CC: Nguyen Santana; Sonia Byrd DO Health Plan Manager: Signed 06-Sep-2016 Dexa Bone Density Study (HP) Result: Comments: See Note; NOTES: [facility] Imaging Services [address] [place] [address] Verdana 4d Dexa Bone Density Study (HP) MR#: [id number] Acct: [id number] Name: LIDA NAQVI Rep #: [id number] : 1935 F 80 From: Rogelio Kumar MD PCP: Nguyen Santana Status: REG CLI Study: Dexa Bone Density Study (HP) Date of Exam: 09/06/16 Exam# [id number] Ordering Dr: Joi Santana STUDY: DUAL ENERGY [...] Rogelio Kumar MD at 13:43 EST Tel [phone], Service support [phone], CC: Nguyen Santana Health Plan Manager: Signed 24-May-2016 PT D/C Summary (1) Result: Comments: See Note; NOTES: [facility] [address] [place] [address]. [address] [place] [address] Fax REHABILITATION SERVICES DISCHA RGE SUMMARY MR#: [id number] Acct: [id number] Name: GAYATRI NAQVI Rep #: [id number] [...] please feel free to call me at [phone]. Thank you for the referral of this patient. Sincerely, Norma Thomas <Electronically signed by Norma Thomas PT, MDT> 05/24/16 1345 CC: George Bueno MD ; Edson Franks DO TAPAN Signed 18-Apr-2016 Re-Evaluation - PT (1) Result: Comments: See Note; NOTES: [facility] [address] [place] [address]. [address] [place], [place] [address] Fax [facility] / [facility] [address] PHYSICAL THERAPY MR#: [id number] Acct: [id number] Name: GAYATRI NAQVI Rep #: [id number] : 1935 80 From: Norma Thomas PT, [...] do not hesitate to contact me at [phone] by phone or if you have que stions or concerns regarding this new plan of care! Sincerely, Norma Thomas <Electronically signed by Norma Thomas PT, CertLizzy MDT> 04/18/16 1304 CC: George Bueno MD; Edson mead DO TAPAN Signed For Medicare only, by signing this I certify the plan of care. Physicians Signature Date 16-Mar-2016 Inital Evaluation (1) - PT Result: Comments: See Note; NOTES: [facility] [address] [place] [address]. [address] [place] [address] Fax REHABILITATION RVICES INITIAL EVALUATION MR#: [id number] Acct: [id number] Name: GAYATRI NAQVI Rep #: [id number] : 1935 80 From: Norma Thomas PT, [...] to be FAXED BACK to us at [phone] for Medicare purposes. Please let me know if there are questions or concerns regarding this plan of care. Physician Signature:__ Date: <Electronically signed by Norma Thomas PT, Cert. MDT> 03/16/16 1323 CC: George Bueno MD; Edson Franks DO TAPAN Signed For Medicare only, by signing this I certify the plan of care. Physicians Signature Date 06-Mar-2016 Discharge Instruction Result: Comments: See Note; NOTES: [facility] Medical Records Department [address] [place] [address] Discharge Instruction 03/04/16 1919 MR#: [id number] Acct: [id number] Name: GAYATRI NAQVI Rep #: [id number] : 1935 80 From: Pastor Mccain MD [...] problems, contact your doctor. Call [facility] ([phone]) or report to the closest Emergency Room. Call 911 if necessary. 03/06/16 0704 <Electronical ly signed by Pastor Mccain MD> Date Pastor Mccain MD Cosigner Signature (If Indicated): Date CC: George Bueno MD 06-Mar-2016 Emergency Department Summary Result: Comments: See Note; NOTES: [facility] Records Department [address] [place] [address] Emergency Department Summary MR#: [id number] Acct: [id number] Name: GAYATRI NAQVI Rep #: [id number] : 1935 80 From: Pastor Mccain MD [...] Khloe [place] C: George Alba MD T: [facility] B: [id number] 03/06/16 0704 <Electronically signed by Pastor Mccain MD> Date Pastor Mccain MD Cosigner Signature (If Indicated): Date CC: George Bueno MD; Wesley Alba MD Date Dictated: 03/05/161121 Date Transcribed: 03/05/161121 Health Plan Manager: Signed 04-Mar-2016 Shoulder One View Result: Comments: See Note; NOTES: [facility] Imaging Services [address] [place] [address] Verdana 4d Shoulder One View MR#: [id number] Acct: [id number] Name: STEPHANIE NAQVI [place] Rep #: [id number] : 1935 F 80 From: Bernadette Daniel MD PCP: George Bueno MD Status: REG ER Study: Shoulder One View Date of Exam: 03/04/16 Exam# [id number] Ordering Dr: Pastor Mccain MD STUDY: X-RAY [...] MD at 19:00 EDT , Service support [phone], RAD/Shoulder One View IMPRESSION: Anatomic relocation of the left glenohume ral joint without fracture deformity. Electronically Signed: Bernadette Daniel MD at 19:00 EDT , Service support [phone], CC: George Xiao i, MD; Pastor Mccain MD Health Plan Manager: Signed 04-Mar-2016 Hip 2-3 Views with Pelvis Result: Comments: See Note; NOTES: [facility] Imaging Services [address] [place] [address] Verdana 4d Hip 2-3 Views with Pelvis MR#: [id number] Acct: [id number] Name: GAYATRI ROSA Rep #: [id number] : 1935 F 80 From: Bernadette Daniel MD PCP: George Bueno MD Status: REG ER Study: Hip 2-3 Views with Pelvis Date of Exam: 03/04/16 Exam# [id number] Ordering Dr: Pastor Mccain MD STUDY: X-RAY [...] MD at 17:17 EDT , Service support [phone], RAD/Hip 2-3 Views with Pelvis IMPRESSION: Normal x-ray examination of the pelvis and hip. Chad quarles Signed: Bernadette aDniel MD at 17:17 EDT , Service support [phone], CC: George Bueno MD; Pastor Mccain MD Health Plan Manager: Signed 04-Mar-2016 Shoulder min 2 Views Result: Comments: See Note; NOTES: [facility] Imaging Services [address] [place] [address] Verda 4d Shoulder min 2 Views MR#: [id number] Acct: [id number] Name: Mayra NAQVI Rep #: [id number] : 1935 F 80 From: Bernadette Daniel MD PCP: George Bueno MD Status: REG ER Study: Shoulder min 2 Views Date of Exam: 03/04/16 Exam# [id number] Ordering Dr: Zach Mccain MD STUDY: X-RAY [...] MD at 17:24 EDT , Service support [phone], Fax RAD/Shoulder min 2 Views IMPRESSION: Complete anterior dislocation of the left shoulder without identified fracture. Electronically Signed: Bernadette Daniel MD at 17:24 EDT , Service support [phone], CC: George Bueno MD; Pastor Mccain MD Health Plan Manager: Signed 04-Mar-2016 Wrist min 3 Views Result: Comments: See Note; NOTES: [facility] Imaging Services [address] [place] [address] Verdana 4d Wrist min 3 Views MR#: [id number] Acct: [id number] Name: STEPHANIE NAQVI Rep #: [id number] : 1935 F 80 From: Bernadette Daniel MD PCP: George Bueno MD Status: REG ER Study: Wrist min 3 Views Date of Exam: 03/04/16 Exam# [id number] Ordering Dr: Pastor Mccain MD STUDY: X-RAY [...] at 17:12 EDT , Se rvice support [phone], RAD/Wrist min 3 Views IMPRESSION: Negative for fracture or dislocation. Electronically Signed: Bernadette Daniel MD at 17:12 EDT , Service support [phone], CC: George Bueno MD; Pastor Mccain MD Health Plan Manager: Signed 24-Mar-2015 Upper Ext Joint Only(Routine) Result: Comments: See Note; NOTES: [facility] Imaging Services [address] [place] [address] MRI Report MR#: [id number] Acct: [id number] Name: GAYATRI NAQVI Rep #: [id number] : 1935 F 79 From: Gialnuca Camarena MD PCP: George Bueno MD Status: REG CLI Study: Upper Ext Joint Only(Routine) Date of Exam: 03/24/15 Exam# [id number] Ordering Dr: George Bueno MD STUDY: MRI [...] at 15:58 EDT Tel , Service support [phone], CC: George Bueno MD Health Plan Manager: Signed 18-Oct-2014 Emergency Department Summary Result: Comments: See Note; NOTES: [facility] Medical Records Department [address] [place] [address] Emergency Department Summary MR#: [id number] Acct: [id number] Name: DRISSMayra Rep #: [id number] : 1935 78 From: Stephanie Andersen MD [...] injury. Stephanie Andersen MD T: NTS JOB: [id number] 10/18/14 160 6 <Electronically signed by Stephanie Andersen MD> Date Stephanie Andersen MD CC: Geogre Bueno MD Date Dictated: 10/18/14 1050 Date Transcribed: 10/18/14 105 Health Plan Manager: Signed 18-Oct-2014 Discharge Instruction Result: Comments: See Note; NOTES: [facility] Medical Records Department [address] [place] [address] Discharge Instruction 10/18/14 1040 MR#: [id number] Acct: [id number] Name: GAYATRI NAQVI Rep #: [id number] : 1935 78 From: Stephanie Andersen MD [...] without Contrast Result: Comments: See Note; NOTES: [facility] Imaging Services [address] [place] [address] CAT Scan Report MR#: [id number] Acct: [id number] Name: GAYATRI NAQVI Rep #: [id number] : 1935 F 78 From: Jacklyn Vázquez MD PCP: George Bueno MD Status: REG ER Study: Brain/Head without Contrast Date of Exam: 10/18/14 Exam# [id number] Ordering Dr: Stephanie Andersen MD STUDY: C [...] MD at 10:34 EST , Service support [phone], CC: George Bueno MD; Stephanie Andersen MD Health Plan Manager: Signed 18-Oct-2014 Spine Cervical without Contras Result: Comments: See Note; NOTES: [facility] Imaging Services [address] [place] [address] CAT Scan Report MR#: [id number] Acct: [id number] Name: GAYATRI NAQVI Rep #: [id number] : 1935 F 78 From: Jacklyn Vázquez MD PCP: George Bueno MD Status: REG ER Study: Spine Cervical without Contras Date of Exam: 10/18/14 Exam# [id number] Ordering Dr: Stephanie Andersen MD STUDY : [...] MD at 10:45 EST , Service support [phone], CC: George Bueno MD ; Stephanie Andersen MD Health Plan Manager: Signed 13-Aug-2014 Bilat Scrn Digital & CAD Result: Comments: See Note; NOTES: [facility] Imaging Services [address] [place] [address] Breast Imaging Report MR#: [id number] Acct: [id number] Name: GAYATRI NAQVI Rep #: [id number] : 1935 F 78 From: Rogelio Kumar MD PCP: George Bueno MD Status: REG CLI Exam# [id number] Ordering Dr: George Bueno MD MAMMOGRAPHY - [...] Kumar MD at 10: 39 EST Tel [phone], Service support [phone], CC: George Bueno MD Health Plan Manager: Signed 13-Aug-2014 Dexa Bone Density Study (HP) Result: Comments: See Note; NOTES: [facility] Imaging Services [address] [place] [address] Bone Density Report MR#: [id number] Acct: [id number] Name: GAYATRI NAQVI Rep #: [id number] : 1935 F 78 From: Rogelio Kumar MD PCP: George Bueno MD Status: REG CLI Study: Dexa Bone Density Study () Date of Exam: 08/13/14 Exam# [id number] Ordering Dr: George Bueno MD STUDY: DUAL [...] Rogelio Kumar MD at 13:55 EST Tel [phone], Service support [phone], CC: George Bueno MD Health Plan Manager: Signed 12-Aug-2013 Bilat Scrn Digital & CAD Result: Comments: See Note; NOTES: [facility] Imaging Services [address] [place] [address] Breast Imaging Report MR#: [id number] Acct: [id number] Name: GAYATRI NAQVI Rep #: [id number] : 1935 F 77 From: Rogelio Kumar MD PCP: George Bueno MD Status: REG I Exam# [id number] Ordering Dr: George Bueno MD MAMMOGRAPHY - [...] August 12 013 at 11:28:57 AM EST [phone] Electronically Signed GP/GP If you are the referring physician and would like to consult with the radiologist who provided this interpretation, please contact Rogelio Kumar M.D. at [phone]. If this radiologist is unavailable, you will be directed to another radiologist to assist. If you are a patient with a question regarding this report, pleas e contact your referring physician directly. Professional Interpretation Provided By: [employer], Phone , These documents contain legally protected [...] of these documents. CC: George Bueno MD Health Plan Manager: Signed Immunization Name Dates Details Zoster (shingles) [...] Area Calculated 1.66 m2 :23 Comments: visual ojjfrn-KR-09/40, OS-20/40, B/L-20/40 Temperature 98.1 f Comments: Method: [...] Comments: PATIENT NOT FASTINGPERFORMED BY: L[facility] [id number] [facility] [id number] Bacteria Few (Normal) Epithelial Cells (non renal) None seen {/hpf} (Normal) Range: 0 - 10 RBC None seen {/hpf} (Normal) Range: 0 - 2 WBC 0-5 {/hpf} (Normal) Range: 0 - 5 47-Hzk-196039:13 URINALYSIS, W/ MICRO (06140) Comments: PATIENT NOT FASTINGPERFORMED BY: [id number] [facility] [id number] Microscopic Examination See below: (Normal) Comments: Microscopic was indicated and was performed. Microscopic Examination MICRON (Normal) Comments: Microscopic follows if indicated. Nitrite, Urine Negative (Normal) Urobilinogen,Semi-Qn 0.2 mg/dL (Normal) Range: 0.2-1.0 Bilirubin Negative (Normal) Occult Blood Negative (Normal) Ketones Negative (Normal) Glucose Negative (Normal) Protein Negative (Normal) WBC Esterase Negative (Normal) Appearance Clear (Normal) Urine-Color Yellow (Normal) pH 7.0 (Normal) Range: 5.0-7.5 Specific [place] 1.009 (Normal) Range: 1.005-1.030 48-Ysk-664773:57 Metabolic Panel, Comprehensive Comments: PATIENT NOT FASTINGPERFORMED BY: LabCoAtlantic Rehabilitation InstituteEnwdox4119 [facility] [id number] (85187) ALT (SGPT) 28 [iU]/L (Normal) Range: 0-32 [...] 90 mg/dL (Normal) Range: 65-99 :57 TSH (37280) Comments: PATIENT NOT FASTINGPERFORMED BY: [facility]CoAtl[facility] Rehabilitation InstituteBvmhnu2757 [facility] [id number] TSH 1.450 {uIU/mL} (Normal) Range: 0.450-4.500 :57 CBC, Platelets & Auto Diff Comments: PATIENT NOT FASTINGPERFORMED BY: LabCoAtl[facility] Rehabilitation InstituteHkmpgp3155 [facility] [id number] (08354) Immature Grans (Abs) 0.0 {x10E3/uL} (Normal) Range: [...] 3.77-5.28 WBC 7.8 {x10E3/uL} (Normal) Range: 3.4-10.8 25-Qvt-788360:00 URINE CELINE CULTURE-IDENTIFICATN Comments: PATIENT NOT FASTINGPERFORMED BY: LATA [facility] Pvnoph5256 [address] [place] [id number] Information: SRC:UC (25352) Result 1 MUG (Normal) Comments: Mixed urogenital flora10,000-25,000 colony forming units per mL Urine Final report (Normal) Culture,Comprehensive 60-Mtq-621416:21 Urinalysis, Office (82767) UA - LEUKOCYTE ESTERASE Negative (Normal) UA - NITRITE Negative (Normal) URINE UROBILINGN JOSÉ MIGUEL TIMED Normal mg/dL (Normal) UA - PROTEIN Negative mg/dL (Normal) UA - PH 7 (Normal) UA - BLOOD Negative (Normal) UA - SPECIFIC GRAVITY 1.010 (Normal) UA - KETONES Moderate mg/dL (Normal) UA - BILIRUBIN Negative (Normal) UA - GLUCOSE Negative (Normal) 20-Zbt-21638:30 Culture, Urine Comments: [facility] Mgtunlmsjl4522 [facility] [address] [place], [place], [id number] CUUR See Note (Normal) Comments: Urine CultureORGANISM 1: Mixed Gram Positive OrganismsColony Count 11,000-25,000MIX CULTURE Mixed contaminants. Submit a new specimen if indicated. :30 Urinalysis, Complete Comments: How was Urine Obtained? CLEAN [facility] Plsjwzuxvw7566 [facility] [address] [place], [place], [id number] MUCUS, URINE 0 SEEN {/hpf} (Normal) BACTERIA [...] (Normal) CLARITY Clear (Normal) COLOR Yellow (Normal) 80-Dja-944518:39 Culture, Urine Comments: [facility] Fsmqjkhhgi7[address] [place], [place], [phone] CUUR See Note (Normal) Comments: Urine CultureBelow infection level. ORGANISM 1: Mixed Gram Positive OrganismsColony Count 1000-10,000 57-Tsd-559105:39 Urinalysis, Complete Comments: How was Urine Obtained? ADULT EDUCATION INSTRUCTOR TO SPECIFYT[facility]car[facility] Hospital Zmbyahukyj8646 [address] [place], [place], [phone] MUCUS, URINE 0 SEEN {/hpf} (Normal) BACTERIA [...] (Normal) CLARITY Clear (Normal) COLOR Yellow (Normal) 54-Cjg-01372:05 RWEHW-MESLNSOSURS-QEGDC (16696) Comments: PATIENT WAS FASTINGPERFORMED BY: LabCoAtl[facility] Rehabilitation InstituteYadyvs4363 [facility] [id number] AFP, Serum, Tumor Marker 3.0 ng/mL (Normal) Range: 0.0-8.3 Comments: [employer] ECLIA methodology :05 TSH (THYROID STIMULATING Comments: PATIENT WAS FASTINGPERFORMED BY: [facility]6370 [facility] [id number] HORMONE) (74789) TSH 2.890 {uIU/mL} (Normal) Range: 0.450-4.500 :05 LIPID PANEL (55708) Comments: PATIENT WAS FASTINGPERFORMED BY: [facility]6370 [facility] [id number] LDL/HDL Ratio 1.9 {ratio_units} (Normal) Range: 0.0-3.2 [...] Auto Diff Comments: PATIENT WAS FASTINGPERFORMED BY: [place] 0500970 [facility] [id number] (21873) Immature Grans (Abs) 0.0 {x10E3/uL} (Normal) Range: [...] 3.77-5.28 WBC 6.4 {x10E3/uL} (Normal) Range: 3.4-10.8 18-Whx-31757:05 Metabolic Panel, Comprehensive Comments: PATIENT WAS FASTINGPERFORMED BY: [facility]CoAtl[facility] Rehabilitation InstituteUwrlch0272 [facility] [id number] (67452) ALT (SGPT) 31 [iU]/L (Normal) Range: 0-32 [...] mg/dL (Normal) Range: 65-99 :49 Rapid Flu (65357 x 2) Influenza A Ag Negative (Normal) :59 THROAT CULTURE (82229) Comments: PATIENT NOT FASTINGPERFORMED BY: [facility]UNC [facility] [id number] Information: SRC:TH Result 1 RRF (Normal) Comments: Routine respiratory graeme Upper Respiratory Culture Final report (Normal) :54 Rapid Strep Test, Office (40638) Rapid Strep Test, Office Negative (Normal) :47 HgA1C , Office (37029) HgA1C , Office 5.8 % (Normal) Range: 4.6 - 7.1 :53 HEPATITIS PANEL (28049) Comments: today; PATIENT NOT FASTINGPERFORMED BY: Cometa70 R[address] [facility] [id number] Hep C Virus Ab <0.1 {s/co_ratio} (Normal) Range: 0.0-0.9 Comments: Negative: < 0.8 Indeterminate: 0.8 - 0.9 Positive: > 0.9 . The CDC recommends that a positive HCV antibody result be followed up with a HCV Nucleic Acid Amplification test (889486). Hep B Core Ab, IgM Negative (Normal) HBsAg Screen Negative (Normal) Hep A Ab, IgM Negative (Normal) :53 HEPATIC FUNCTION PANEL Comments: today; PATIENT NOT FASTINGPERFORMED BY: R[employer]R [facility] [id number] (12300) ALT (SGPT) 29 [iU]/L (Normal) Range: 0-32 AST (SGOT) 30 [iU]/L (Normal) Range: 0-40 Alkaline Phosphatase, S 53 [iU]/L (Normal) Range: 39-117 Bilirubin, Direct 0.18 mg/dL (Normal) Range: 0.00-0.40 Bilirubin, Total 0.5 mg/dL (Normal) Range: 0.0-1.2 Albumin, Serum 4.7 g/dL (Normal) Range: 3.5-4.7 Protein, Total, Serum 6.5 g/dL (Normal) Range: 6.0-8.5 1-Mfs-068460:53 HBZHD-RQLZNRDSIYU-MLVGD (36399) Comments: today; PATIENT NOT FASTINGPERFORMED BY: [facility]CoAtl[facility] Rehabilitation InstituteSfogiu7541 [facility] [id number] AFP, Serum, Tumor Marker 3.0 ng/mL (Normal) Range: 0.0-8.3 Comments: Kristi ECLIA methodology 45-Ccs-940290:55 Basic Metabolic Profile (BMP) Comments: Order Date: 03/01/17Order Info: 0667-1 - *BMPOrder Info: 3026-2 - *T4 (Total)Comments: Reason:Order Info: 3016-3 - *TSHComments: Reason:[facility] Htbtgwprvx[address] [place], [address] ; cardio GAP 6 (Normal) Range: 5-15 [...] 7-18 GLU 96 mg/dL (Normal) Range: 70-110 44-Wvy-644416:55 CBC-Complete Blood Cnt No Diff Comments: Order Date: 03/01/17Order Info: 67387-5 - *CBC without DiffComments: Reason:[facility] Ispdmmzfyl[address] [place], [phone] MPV 9.6 fL (Normal) Range: 6.2-12.0 PLT [...] *T4 (Total)Comments: Reason:Order Info: 3016-3 - *TSHComments: Reason:[facility] Gxvucloaix[address] [place], [phone] T4 THYROXIN 9.3 ug/dL (Normal) Range: 4.8-13.9 60-Ywp-008109:55 Thyroid Stim Hormone (TSH) Comments: Order Date: 03/01/17Order Info: 0667-1 - *BMPOrder Info: 3026-2 - *T4 (Total)Comments: Reason:Order Info: 3016-3 - *TSHComments: Reason:[facility] Ggiflxdwzl[address] [place], [phone] TSH 1.33 {uIU/mL} (Normal) Range: 0.358-3.74 9-Qff-695963:55 Urinalysis, Office (76759) UA - LEUKOCYTE ESTERASE Negative (Normal) UA - NITRITE Negative (Normal) URINE UROBILINGN JOSÉ MIGUEL TIMED Normal mg/dL (Normal) UA - PROTEIN Negative mg/dL (Normal) UA - PH 7.5 (Normal) UA - BLOOD Negative (Normal) UA - SPECIFIC GRAVITY 1.020 (Normal) UA - KETONES Negative mg/dL (Normal) UA - BILIRUBIN Negative (Normal) UA - GLUCOSE Negative (Normal) 5-Hnw-776625:17 URINE CELINE CULTURE-JOSÉ MIGUEL COL Comments: PATIENT NOT FASTINGPERFORMED BY: [employer] [facility] [id number] Information: SRC:UC COUNT (71915) Result 1 MUG (Normal) Comments: Mixed urogenital flora25,000-50,000 colony forming units per mL Urine Final report (Normal) Culture,Comprehensive 1-Jmn-493288:05 Urinalysis, Office (62345) UA - LEUKOCYTE ESTERASE Small (Normal) UA - NITRITE Negative (Normal) URINE UROBILINGN JOSÉ MIGUEL TIMED Normal mg/dL (Normal) UA - PROTEIN Negative mg/dL (Normal) UA - PH 7 (Normal) UA - BLOOD Negative (Normal) UA - SPECIFIC GRAVITY 1.015 (Normal) UA - KETONES Small mg/dL (Normal) UA - BILIRUBIN Small (Normal) UA - GLUCOSE Negative (Normal) 07-Nov-20160:00 Culture, Urine Comments: [facility] Glugbtlquv[address] [place], [address] CUUR See Note (Normal) Comments: Urine CultureCulture exhibits no growth. :45 TSH (29470) Comments: PATIENT WAS FASTINGPERFORMED BY: Reeher Psvbdg5070 [facility] [id number] TSH 2.950 {uIU/mL} (Normal) Range: 0.450-4.500 :45 Lipid Panel (68419) Comments: PATIENT WAS FASTINGPERFORMED BY: ReeherAtlantic Rehabilitation InstitutePopdsn2793 [facility] [id number]; OV 08/23 LDL/HDL Ratio 2.2 {ratio_units} (Normal) [...] Cholesterol, Total 231 mg/dL (Abnormal) Range: 100-199 24-Rdy-57013:45 CBC, Platelets & Auto Diff Comments: PATIENT WAS FASTINGPERFORMED BY: LabCoAtl[facility] Rehabilitation InstituteDbizyz0163 [facility] [id number] (93449) Immature Grans (Abs) 0.0 {x10E3/uL} (Normal) Range: [...] Panel, Comprehensive Comments: PATIENT WAS FASTINGPERFORMED BY: Reeher Ihgovo4594 [facility] [id number] (70118) ALT (SGPT) 30 [iU]/L (Normal) Range: 0-32 [...] Glucose, Serum 99 mg/dL (Normal) Range: 65-99 1-Fqj-860895:00 MICROALBUMIN: CREATININE RATIO Comments: PATIENT WAS FASTINGPERFORMED BY: ReeherGila Regional Medical CenterWyzite5542 [facility] [id number] (63416) AND (94316) Microalb/Creat Ratio 9.2 {mg/g_creat} (Normal) Range: 0.0-30.0 Microalbumin, Urine 28.4 ug/mL (Normal) Creatinine, Urine 307.2 mg/dL (Normal) :00 METABOLIC PANEL, COMPREHENSIVE Comments: PATIENT WAS FASTINGPERFORMED BY: Reeher Wpycgw1961 [facility] [id number] (24380) ALT (SGPT) 23 [iU]/L (Normal) Range: 0-32 [...] mg/dL (Normal) Range: 65-99 :00 LIPID PANEL (51342) Comments: PATIENT WAS FASTINGPERFORMED BY: ReeherGila Regional Medical CenterEvrnnn4317 [facility] [id number]; fu 6-13 with [facility] LDL/HDL Ratio 1.9 {ratio_units} (Normal) Range: 0.0-3.2 [...] Cholesterol, Total 211 mg/dL (Abnormal) Range: 100-199 0-Tnd-361406:00 CBC with auto diff Comments: PATIENT WAS FASTINGPERFORMED BY: LabCoAtl[facility] Rehabilitation InstituteKuagzu2161 [facility] [id number] Information: [id number] (55038) Immature Grans (Abs) 0.0 {x10E3/uL} (Normal) Range: [...] 3.77-5.28 WBC 5.5 {x10E3/uL} (Normal) Range: 3.4-10.8 98-Kir-008803:55 Urinalysis, Office (64096) UA - LEUKOCYTE ESTERASE Small (Normal) UA [...] Microscopic Examination Comments: PATIENT WAS FASTINGPERFORMED BY: Blog[employer] LabCoDialsFsxgoe5292 [facility] [id number] Bacteria Moderate (Abnormal) Mucus Threads Present (Normal) Epithelial Cells (non renal) >10 {/hpf} (Abnormal) Range: 0 - 10 RBC 0-2 {/hpf} (Normal) Range: 0 - 2 WBC 11-30 {/hpf} (Abnormal) Range: 0 - 5 :10 CALCIFIDIOL (40032) VIT D 25 Comments: PATIENT WAS FASTINGPERFORMED BY: [facility]Radio [facility] Urywcg8494 [facility] [id number] Vitamin D, 25-Hydroxy 30.0 ng/mL (Normal) Range: 30.0-100.0 Comments: Vitamin D deficiency has been defined by the [place] of[place] and an Endocrine Society practice guideline as alevel of serum 25-OH vitamin D less than 20 ng/mL (1,2).The Endocrine Society went on to further define vitamin Dinsufficiency as a level between 21 and 29 ng/mL (2).1. IOM ([place] [employer]). 2010. Dietary reference intakes for calcium and D. [place]: The National Academies Press.2. Barb MF, Malachi NC, Bj LEAL, et al. Evaluation, treatment, and prevention of vitamin D deficiency: an Endocrine Society clinical practice guideline. JCEM. 2011 Apr; 96(7):1911-30. :10 URINALYSIS, W/ MICRO (96481) Comments: PATIENT WAS FASTINGPERFORMED BY: [facility]6370 [facility] [id number] Microscopic Examination See below: (Normal) Comments: Microscopic was indicated and was performed. Nitrite, Urine Negative (Normal) Urobilinogen,Semi-Qn 0.2 mg/dL (Normal) Range: 0.2-1.0 Bilirubin Negative (Normal) Occult Blood Negative (Normal) Ketones Negative (Normal) Glucose Negative (Normal) Protein 1+ (Abnormal) WBC Esterase 3+ (Abnormal) Appearance Cloudy (Abnormal) Urine-Color Yellow (Normal) pH 7.5 (Normal) Range: 5.0-7.5 Specific [place] 1.023 (Normal) Range: 1.005-1.030 :10 METABOLIC PANEL, COMPREHENSIVE Comments: PATIENT WAS FASTINGPERFORMED BY: [facility]6370 [facility] [id number] (69801) ALT (SGPT) 26 [iU]/L (Normal) Range: 0-32 [...] mg/dL (Normal) Range: 65-99 :10 LIPID PANEL (39761) Comments: PATIENT WAS FASTINGPERFORMED BY: ReeherAtlantic Rehabilitation InstituteKwjrkh1125 [facility] [id number] LDL/HDL Ratio 1.9 {ratio_units} (Normal) Range: 0.0-3.2 [...] auto diff Comments: PATIENT WAS FASTINGPERFORMED BY: ReeherAtlantic Rehabilitation InstituteUtlkug0499 [facility] [id number] Information: [id number]; apt. 09-18-15 (12716) Immature Grans (Abs) 0.0 {x10E3/uL} (Normal) Range: [...] With Differential/Platelet Comments: PATIENT WAS FASTINGPERFORMED BY: LabCoAtl[facility] Rehabilitation InstituteEpwayh0829 [facility] [id number] Information: [id number] Immature Grans (Abs) 0.0 {x10E3/uL} (Normal) Range: [...] Panel (14) Comments: PATIENT WAS FASTINGPERFORMED BY: LabCoAtlantic Rehabilitation InstituteNwvrcn6088 [facility] [id number] ALT (SGPT) 24 [iU]/L (Normal) Range: 0-32 [...] With LDL/HDL Comments: PATIENT WAS FASTINGPERFORMED BY: AgilOneSaint Mary'S Health CenterDclxet8426 [facility] [id number] Ratio LDL/HDL Ratio 2.1 {ratio_units} (Normal) Range: [...] Clint Dale Comments: PATIENT WAS FASTINGPERFORMED BY: AgilOneAscension Genesys Hospital6370 [facility] [id number]; has fu 03-17-15 will review with her then Microalb/Creat Ratio 9.1 {mg/g_creat} Range: 0.0-30.0 (Normal) Microalbumin, Urine 25.2 ug/mL (Abnormal) Range: 0.0-17.0 Creatinine, Urine 278.2 mg/dL (Abnormal) Range: 15.0-278.0 Vitamin D, 25-Hydroxy 31.1 ng/mL (Normal) Comments: PATIENT WAS FASTINGPERFORMED BY: [facility]6370 [facility] [id number] :27 Range: 30.0-100.0 Comments: Vitamin D deficiency has been defined by the [place] of[place] and an Endocrine Society practice guideline as alevel of serum 25-OH vitamin D less than 20 ng/mL (1,2).The Endocrine Society went on to further define vitamin Dinsufficiency as a level between 21 and 29 ng/mL (2).1. IOM ([place] [employer]). 2010. Dietary reference intakes for calcium and D. [place]: The National Academies Press.2. Barb MF, Malachi BEYER, Bj LEAL, et al. Evaluation, treatment, and prevention of vitamin D deficiency: an Endocrine Society clinical practice guideline. JCEM. 2010; 96(7):1911-30. :35 Microscopic Examination Comments: PATIENT WAS FASTINGPERFORMED BY: LabCo Igspmg9348 [facility] [id number] Bacteria None seen (Normal) Mucus Threads Present (Normal) Crystal Type Calcium Oxalate (Normal) Crystals Present (Abnormal) Epithelial Cells (non renal) 0-10 {/hpf} (Normal) Range: 0 - 10 RBC 0-2 {/hpf} (Normal) Range: 0 - 2 WBC 0-5 {/hpf} (Normal) Range: 0 - 5 :06 Rapid Strep Test, Office (03897) Rapid Strep Test, Office Negative (Normal) :03 Rapid Flu (06460 x 2) Influenza A Ag neg (Normal) :35 URINALYSIS, W/ MICRO (98581) Comments: 09-14; PATIENT WAS FASTINGPERFORMED BY: [facility] Zthmym6052 [facility] [id number] Microscopic Examination See below: (Normal) Comments: Microscopic was indicated and was performed. Nitrite, Urine Negative (Normal) Urobilinogen,Semi-Qn 1.0 mg/dL (Normal) Range: 0.0-1.9 Bilirubin Negative (Normal) Occult Blood Negative (Normal) Ketones Trace (Abnormal) Glucose Negative (Normal) Protein 1+ (Abnormal) WBC Esterase Trace (Abnormal) Appearance Clear (Normal) Urine-Color Yellow (Normal) pH 6.5 (Normal) Range: 5.0-7.5 Specific [place] 1.029 (Normal) Range: 1.005-1.030 :35 CBC, Platelets & Auto Diff Comments: 09-14; PATIENT WAS FASTINGPERFORMED BY: LATA [employer]70 [employer] [facility] [id number] Information: [id number] (46119) Immature Grans (Abs) 0.2 {x10E3/uL} Range: 0.0-0.1 [...] Comments: 09-14; PATIENT WAS FASTINGPERFORMED BY: LATA [employer].70 [facility] [id number] (83044) ALT (SGPT) 16 [iU]/L (Normal) Range: 0-32 [...] mg/dL (Normal) Range: 65-99 08-Sep-20149:35 Lipid Panel (42894) Comments: 12-14; PATIENT WAS FASTINGPERFORMED BY: LATA [facility] Ktyjzl3501 [facility] [id number] LDL/HDL Ratio 1.7 {ratio_units} (Normal) Range: 0.0-3.2 [...] Cholesterol, Total 215 mg/dL (Abnormal) Range: 100-199 63-Arl-438340:12 Metabolic Panel, Basic Comments: today; PATIENT NOT FASTINGPERFORMED BY: Cometa70 [facility] [id number] Information: [id number],NURSE DRAW (33548) Calcium, Serum 10.6 mg/dL (Abnormal) Range: 8.6-10.2 [...] Comments: 4 months; PATIENT WAS FASTINGPERFORMED BY: [employer])6370 [facility] [id number] Information: [id number] COMPREHENSIVE (96294) ALT (SGPT) 24 [iU]/L (Normal) Range: 0-32 [...] mg/dL (Normal) Range: 65-99 06-Jan-20148:06 LIPID PANEL (37213) Comments: 4 months; PATIENT WAS FASTINGPERFORMED BY: Cometa70 [facility] [id number] LDL/HDL Ratio 2.0 {ratio_units} (Normal) Range: 0.0-3.2 LDL Cholesterol Calc 145 mg/dL (Abnormal) Range: 0-99 VLDL Cholesterol Thanh 22 mg/dL (Normal) Range: 5-40 HDL Cholesterol 71 mg/dL (Normal) Comments: According to ATP-III Guidelines, HDL-C >59 mg/dL is considered anegative risk factor for CHD. Triglycerides 111 mg/dL (Normal) Range: 0-149 Cholesterol, Total 238 mg/dL (Abnormal) Range: 100-199 4-Pzq-751610:03 Potassium Serum (72465) Comments: today; PATIENT NOT FASTINGPERFORMED BY: Cometa70 [facility] [id number] Information: [id number] Potassium, Serum 3.7 mmol/L (Normal) Range: 3.5-5.2 59-Viz-042785:41 MICROALBUMIN: CREATININE Comments: PATIENT NOT FASTINGPERFORMED BY: AgilOneAscension Genesys Hospital6370 [facility] [id number] Information: [id number] RATIO (28014) AND (86827) Microalb/Creat Ratio 6.9 {mg/g_creat} (Normal) Range: 0.0-30.0 Microalbumin, Urine 19.6 ug/mL (Abnormal) Range: 0.0-17.0 Creatinine, Urine 282.6 mg/dL (Abnormal) Range: 15.0-278.0 46-Ztk-21056:57 METABOLIC PANEL, COMPREHENSIVE Comments: PATIENT WAS FASTINGPERFORMED BY: AgilOneAscension Genesys Hospital6370 [facility] [id number] (39054) ALT (SGPT) 26 [iU]/L (Normal) Range: 0-32 [...] mg/dL (Normal) Range: 65-99 :57 LIPID PANEL (40727) Comments: PATIENT WAS FASTINGPERFORMED BY: ReeherAtlantic Rehabilitation InstituteHylptt2331 [facility] [id number] LDL/HDL Ratio 1.7 {ratio_units} (Normal) Range: 0.0-3.2 [...] MANUAL DIFF Comments: PATIENT WAS FASTINGPERFORMED BY: ReeherAtlantic Rehabilitation InstituteOkzprj1660 [facility] [id number] Information: [id number] (94567) Immature Grans (Abs) 0.0 {x10E3/uL} (Normal) Range: [...] CREATININE RATIO Comments: PATIENT WAS FASTINGPERFORMED BY: GoombalAtlantic Rehabilitation InstituteWoaaac7474 [facility] [id number] (12590) AND (26229) Microalb/Creat Ratio 4.0 {mg/g_creat} (Normal) Range: 0.0-30.0 Microalbumin, Urine 8.3 ug/mL (Normal) Range: 0.0-17.0 Creatinine, Urine 206.4 mg/dL (Normal) Range: 15.0-278.0 :29 METABOLIC PANEL, COMPREHENSIVE Comments: PATIENT WAS FASTINGPERFORMED BY: GoombalAtlantic Rehabilitation InstituteJvmrie5976 [facility] [id number] (41751) ALT (SGPT) 22 [iU]/L (Normal) Range: 0-32 [...] mg/dL (Normal) Range: 65-99 :29 LIPID PANEL (44400) Comments: PATIENT WAS FASTINGPERFORMED BY: Cometa70 Rocha [facility] [id number] LDL/HDL Ratio 1.9 {ratio_units} (Normal) Range: 0.0-3.2 [...] MANUAL DIFF Comments: PATIENT WAS FASTINGPERFORMED BY: [employer])6370 [facility] [id number] Information: [id number] (34327) Immature Grans (Abs) 0.0 {x10E3/uL} (Normal) Range: [...] Ambiguous Default Comments: PATIENT WAS FASTINGPERFORMED BY: LabCoAtlantic Rehabilitation InstituteEdlvax7378 [facility] [id number] Immature Grans (Abs) 0.0 {x10E3/uL} (Normal) Range: [...] PANEL, COMPREHENSIVE Comments: PATIENT WAS FASTINGPERFORMED BY: LabCoAtlantic Rehabilitation InstituteAdftoj3784 [facility] [id number] (51888) ALT (SGPT) 22 [iU]/L (Normal) Range: 0-32 [...] mg/dL (Normal) Range: 65-99 :06 LIPID PANEL (07369) Comments: PATIENT WAS FASTINGPERFORMED BY: LabLaf[facility] Fmpchn7763 [facility] [id number] LDL/HDL Ratio 1.2 {ratio_units} (Normal) Range: 0.0-3.2 LDL Cholesterol Calc 95 mg/dL (Normal) Range: 0-99 VLDL Cholesterol Thanh 13 mg/dL (Normal) Range: 5-40 HDL Cholesterol 80 mg/dL (Normal) Comments: According to ATP-III Guidelines, HDL-C >59 mg/dL is considered anegative risk factor for CHD. Triglycerides 64 mg/dL (Normal) Range: 0-149 Cholesterol, Total 188 mg/dL (Normal) Range: 100-199 :59 Urinalysis, Office (32899) UA - BILIRUBIN Negative (Normal) UA - [...] Kumar M.D.March 29, 2012 at 8:59:04 AM [id number] Signed GP/GP If you are the referring [...] on 03/29/12904 Sign by: Rogelio Kumar MD 47-Nvi-09297:00 BILAT SCRN DIGITAL & CAD Radiology Report [...] Kumar M.D.March 28, 2012 at 9:07:04 AM [id number] Signed GP/GP If you are the referring physician and would like to consult with theradiologist who provided this interpretation, please contact Miracle Dale at . If this radiologist is unavailable,youwill be directed to another radiologist to assist. If you are a patient with a question regarding this report, pleasecontactyour referring physician directly. Professional Interpretation Provided By: [facility], Phone , Dictated on 03/28/12 084 7 by Jake ALEXANDRE,EjriVamsiranscribed on 03/28/12 1125 by ITS IMPORTSign by Jake ALEXANDRE,Rogelio on 03/28/12 1126 Sign by: Rogelio Kumar MD 40-Cbt-50328:17 LIPID PANEL (93639) Comments: PATIENT NOT FASTINGPERFORMED BY: [employer] [facility] [id number] LDL Cholesterol Calc 93 mg/dL (Normal) Range: 0-99 LDL/HDL Ratio 1.3 {ratio_units} (Normal) Range: 0.0-3.2 VLDL Cholesterol Thanh 22 mg/dL (Normal) Range: 5-40 HDL Cholesterol 73 mg/dL (Normal) Comments: According to ATP-III Guidelines, HDL-C >59 mg/dL is considered anegative risk factor for CHD. Triglycerides 112 mg/dL (Normal) Range: 0-149 Cholesterol, Total 188 mg/dL (Normal) Range: 100-199 50-Zmx-76129:17 HEPATIC FUNCTION PANEL Comments: PATIENT NOT FASTINGPERFORMED BY: [employer]) [facility] [id number] Information: ADD DRAW FEE 405222 ADD J0 3034 (89765) ALT (SGPT) 28 [iU]/L (Normal) Range: 0-40 AST (SGOT) 29 [iU]/L (Normal) Range: 0-40 Alkaline Phosphatase, S 54 [iU]/L (Normal) Range: 25-165 Bilirubin, Direct 0.20 mg/dL (Normal) Range: 0.00-0.40 Bilirubin, Total 0.7 mg/dL (Normal) Range: 0.0-1.2 Albumin, Serum 4.6 g/dL (Normal) Range: 3.5-4.8 Protein, Total, Serum 6.5 g/dL (Normal) Range: 6.0-8.5 :30 CBC WITH MANUAL DIFF Comments: PATIENT WAS FASTINGPERFORMED BY: Goombal Jyvbpx7741 [facility] [id number] Information: [id number] (57919) Immature Grans (Abs) 0.0 {x10E3/uL} (Normal) Range: [...] 3.80-5.10 WBC 4.8 {x10E3/uL} (Normal) Range: 4.0-10.5 77-Qec-65186:30 LIPID PANEL (45715) Comments: PATIENT WAS FASTINGPERFORMED BY: LabCoAtlantic Rehabilitation InstituteDziamh5435 [facility] [id number]; OV 02/28/12 LDL/HDL Ratio 2.1 {ratio_units} (Normal) [...] PANEL, COMPREHENSIVE Comments: PATIENT WAS FASTINGPERFORMED BY: [facility] [id number] (60399) ALT (SGPT) 19 [iU]/L (Normal) Range: 0-40 [...] Glucose, Serum 98 mg/dL (Normal) Range: 65-99 75-Nro-78674:30 MICROALBUMIN: CREATININE RATIO Comments: PATIENT WAS FASTINGPERFORMED BY: Cometa70 [facility] [id number] (78031) AND (24864) Microalb/Creat Ratio 5.5 {mg/g_creat} (Normal) Range: 0.0-30.0 Creatinine, Urine 262.6 mg/dL (Normal) Range: 15.0-278.0 Microalbumin, Urine 14.4 ug/mL (Normal) Range: 0.0-17.0 :19 AORTA Radiology Report See Note (Normal) Comments: PROCEDURES: ULTRASOUND ABDOMINAL AORTA REASON FOR EXAM: Female, 76 years old. Atherosclerosis TECHNIQUE: Ultrasound evaluation of the aorta was performed withreal-time Ultrasonography with static owod scale imaging. COMPARISON: None. FINDINGS:There is mild [...] regarding this repo rt, please call our 82N8qdotplz line @ Dictated on 01/24/12 0917 by [...] regarding this report, ple ase call our 37T6slutmhj line @ Dictated on 01/03/12 1257 by Rakesh Benavidez MDTranscribed on 01/04/12 1540 by ITS IMPORTSign by Rakesh Benavidez MD on 01/04/12 1540 Sign by: Rakesh Benavidez MD 43-Drw-97267:30 MYOCARD PERF STRESS/REST MULT Radiology Report See Note (Normal) Comments: EXERCISE STRESS TEST HISTORYA 75-year-old lady with history of abnormal EKG. HRLITNDRH53.0 mCi of Sestamibi was injected at rest. [...] 1645 Sign by: ___ Jose Allen MD 44-Zkv-452843:03 Creatinine Clearance Comments: PERFORMED BY: [employer]6370 [facility] [id number] Information: 06/26/11@7AM 06/27/11@7AM Creatinine Clearance 68 mL/min [...] Creatinine, Serum 0.94 mg/dL (Normal) Range: 0.57-1.00 59-Txh-267528:03 Protein Total, Qn, 24-Hr Comments: PERFORMED BY: [employer]6370 [facility] [id number] Urine Prot,24hr calculated <31.5 {mg/24_hr} (Normal) Range: 30.0-150.0 Protein,Total,Urine <1.5 mg/dL (Normal) Range: 0.0-15.0 Comments: Verified by repeat analysis :21 LIPID PANEL (30239) Comments: in three months (approximately); PATIENT WAS FASTINGPERFORMED BY: [employer]6370 [facility] [id number] Information: [id number] LDL/HDL Ratio 2.1 {ratio_units} (Normal) Range: 0.0-3.2 [...] Microscopic Examination Comments: PATIENT WAS FASTINGPERFORMED BY: AgilOneCoAtlantic Rehabilitation InstituteGugdov8642 [facility] [id number] Bacteria Few (Normal) Mucus Threads Present (Normal) Crystal Type Amorphous Sediment (Normal) Crystals Present (Abnormal) Cast Type Hyaline casts (Normal) Casts Present {/lpf} (Abnormal) Epithelial Cells (non renal) 0-10 {/hpf} (Normal) Range: 0 - 10 RBC 4-10 {/hpf} (Abnormal) Range: 0 - 3 WBC 0-5 {/hpf} (Normal) Range: 0 - 5 CBC WITH MANUAL DIFF (45440) Comments: PATIENT WAS FASTINGPERFORMED BY: LabNotis.tvAtlantic Rehabilitation InstituteYdajpb5523 [facility] [id number] Immature Grans (Abs) 0.0 {x10E3/uL} (Normal) Range: [...] {x10E3/uL} (Normal) Range: 4.0-10.5 :23 LIPID PANEL (78521) Comments: PATIENT WAS FASTINGPERFORMED BY: ReeherAtlantic Rehabilitation InstituteCsquft6147 [facility] [id number] LDL/HDL Ratio 2.0 {ratio_units} (Normal) Range: 0.0-3.2 [...] PANEL, COMPREHENSIVE Comments: PATIENT WAS FASTINGPERFORMED BY: ReeherAtlantic Rehabilitation InstituteOoyrrw0016 [facility] [id number] (61480) ALT (SGPT) 32 [iU]/L (Normal) Range: 0-40 [...] Glucose, Serum 93 mg/dL (Normal) Range: 65-99 59-Dmc-38642:23 URINALYSIS, W/ MICRO (51214) Comments: PATIENT WAS FASTINGPERFORMED BY: LabCoAtlantic Rehabilitation InstituteHorahr9374 [facility] [id number]; appt 06/23/11 Microscopic Examination See below: (Normal) Nitrite, Urine Negative (Normal) Urobilinogen,Semi-Qn 0.2 mg/dL (Normal) Range: 0.0-1.9 Bilirubin Negative (Normal) Occult Blood Negative (Normal) Ketones Negative (Normal) Glucose Negative (Normal) Protein 1+ (Abnormal) WBC Esterase Negative (Normal) Appearance Cloudy (Abnormal) Urine-Color Yellow (Normal) pH 6.5 (Normal) Range: 5.0-7.5 Specific [place] 1.028 (Normal) Range: 1.005-1.030 56-Eap-604051:23 BILAT SCRN DIGITAL & CAD Radiology Report [...] on 01/25/111 Sign by: ELVIS SMITH MD 81-Def-893035:01 Urinalysis, Office (36745) UA - BILIRUBIN Negative (Normal) UA - [...] Microscopic Examination Comments: PATIENT WAS FASTINGPERFORMED BY: Cometa70 [facility] [id number] Bacteria Few (Normal) Mucus Threads Present (Normal) Epithelial Cells (non renal) 0-10 {/hpf} (Normal) Range: 0 - 10 RBC 0-3 {/hpf} (Normal) Range: 0 - 3 WBC 0-5 {/hpf} (Normal) Range: 0 - 5 :28 LIPID PANEL (80296) Comments: PATIENT WAS FASTINGPERFORMED BY: Cometa70 [facility] [id number] LDL/HDL Ratio 1.4 {ratio_units} (Normal) Range: 0.0-3.2 HDL Cholesterol 76 mg/dL (Normal) Comments: According to ATP-III Guidelines, HDL-C >59 mg/dL is considered anegative risk factor for CHD. LDL Cholesterol Calc 110 mg/dL (Abnormal) Range: 0-99 VLDL Cholesterol Thanh 23 mg/dL (Normal) Range: 5-40 Cholesterol, Total 209 mg/dL (Abnormal) Range: 100-199 Triglycerides 117 mg/dL (Normal) Range: 0-149 :28 URINALYSIS, W/ MICRO (73453) Comments: PATIENT WAS FASTINGPERFORMED BY: GoombalAtlantic Rehabilitation InstituteWwnuyq2801 [facility] [id number] Microscopic Examination See below: (Normal) Bilirubin Negative (Normal) Nitrite, Urine Negative (Normal) Occult Blood Negative (Normal) Urobilinogen,Semi-Qn 0.2 mg/dL (Normal) Range: 0.0-1.9 Appearance Clear (Normal) Glucose Negative (Normal) Ketones Negative (Normal) Protein 1+ (Abnormal) WBC Esterase Negative (Normal) pH 6.0 (Normal) Range: 5.0-7.5 Specific [place] 1.031 (Abnormal) Range: 1.005-1.030 Urine-Color Yellow (Normal) :28 METABOLIC PANEL, COMPREHENSIVE Comments: PATIENT WAS FASTINGPERFORMED BY: GoombalAtlantic Rehabilitation InstituteWamgtj6815 [facility] [id number] (93238) Alkaline Phosphatase, S 47 [iU]/L (Normal) Range: [...] Glucose, Serum 98 mg/dL (Normal) Range: 65-99 28-Dis-90868:28 CBC WITH MANUAL DIFF Comments: PATIENT WAS FASTINGPERFORMED BY: LabCoAtlantic Rehabilitation InstituteXawbbw9012 [facility] [id number] Information: [id number] (59937) Immature Grans (Abs) 0.0 {x10E3/uL} (Normal) Range: [...] on 09/06/10 0749 Sign by: Pao Cristobal 26-Eyv-082276:35 N-Telopeptide, Urine Comments: PERFORMED BY: ESTELLA [facility] [address] [id number] BY: LATA [facility] Olokjh0078 [facility] [id number] Information: 06/23@7AM 06/24@7AM Interpretive Guide: SPRCS (Normal) [...] 1.4 p=0.2838- 51 2.5 p=0.0351- 67 3.8 p=0.858166-060 17.3 p=0.09849. Menopausal Women Receiving Antiresorptive Therapy: Theprobability that treatment is effective after threemonths is increased when the measured NTx va lue is<or=38 nM BCE/mM SOLAR [employer]ST[employer]ATION HELPER, or NTx has decreased >or=30% frombaseline (1)..3. [...] N-telopeptide 34 {nmol_BCE} (Normal) :11 Urinalysis, Office (94479) UA - LEUKOCYTE ESTERASE Negative (Normal) UA - NITRITE Negative (Normal) URINE UROBILINGN JOSÉ MIGUEL TIMED 2 mg/dL (Normal) UA - PROTEIN Negative mg/dL (Normal) UA - PH 6.0 (Normal) UA - BLOOD Hemolyzed Trace (Normal) UA - SPECIFIC GRAVITY 1.020 (Normal) UA - KETONES Small mg/dL (Normal) UA - BILIRUBIN Small (Normal) UA - GLUCOSE Negative (Normal) 2-Sep-11924:16 MYOCARD PERF STRESS/REST MULT Radiology Report See Note (Normal) Comments: Exam Number: [id number] MYOCARDIAL PERFUSION SCAN TECHNIQUEThe patient was injected [...] area ofdiminished tracer uptake in the dis egni anteroseptal segments whichappears to be somewhat less [...] of 62%. Reported By: ROMEL SILVERIO M.D. 39-Ldv-267519:11 BRAIN W/WO CONTRAST Radiology Report See Note (Normal) Comments: Exam Number: [id number] CLINICAL:73-year-old female with tremors for over one [...] ischemic changes. Reported By: ELVIS BEARD M.D. 49-Gbm-678548:39 Basic Metabolic Panel (8) Comments: A courtesy copy of this report has been sent [phone].PERFORMED BY: [facility]6370 [facility] [id number] Information: [id number] Calcium, Serum 9.7 mg/dL (Normal) Range: 8.6-10.2 [...] CREATININE RATIO Comments: PATIENT WAS FASTINGPERFORMED BY: [employer] (formerly [employer])[address] [facility] [id number] (47070) AND (47083) Microalb/Creat Ratio 4.3 {mg/g_creat} (Normal) Range: 0.0-30.0 Microalbumin, Urine 6.1 ug/mL (Normal) Range: 0.0-17.0 Creatinine, Urine 140.7 mg/dL (Normal) Range: 15.0-278.0 :15 METABOLIC PANEL, COMPREHENSIVE Comments: PATIENT WAS FASTINGPERFORMED BY: [employer] ([employer])[address] [facility] HospitalNordic [facility] CollectiveC[facility] [id number] (68933) ALT (SGPT) 30 [iU]/L (Normal) Range: 0-40 [...] mg/dL (Normal) Range: 65-99 :15 LIPID PANEL (86840) Comments: PATIENT WAS FASTINGPERFORMED BY: [employer])6370 [facility] [id number] LDL Cholesterol Calc 150 mg/dL (Abnormal) Range: [...] MANUAL DIFF Comments: PATIENT WAS FASTINGPERFORMED BY: Cometa70 [facility] [id number] Information: ADD [id number] AND DRAW FEE 99 2019 (67541) Immature Grans (Abs) 0.0 {x10E3/uL} (Normal) Range: [...] 3.80-5.10 WBC 6.0 {x10E3/uL} (Normal) Range: 4.0-10.5 82-Qil-218314:33 CELINE CULTURE-OTHER (57106) Comments: PATIENT NOT FASTINGPERFORMED BY: LabCoAtlantic Rehabilitation InstituteBenvfd3327 [facility] [id number] Information: SRC:THRT [id number] Result 1 RRF (Normal) Comments: Routine respiratory graeme Upper Respiratory Culture Final report (Normal) 65-Ona-055822:14 Rapid Strep Test, Office (94911) Rapid Strep Test, Office Negative (Normal) 63-Lcm-779368:38 BRAIN/HEAD W/WO CONTRAST Radiology Report See Note (Normal) Comments: Exam Number: [id number] CT SCAN OF THE HEAD Multiple axial [...] without intravenous contrast. Reported By: ROGELIO KUMAR 06-Uah-267721:47 BILAT SCRN DIGITAL & CAD Radiology Report See Note (Normal) Comments: Exam Number: [id number] MAMMOGRAM, BILATERAL SCREENING DIGITAL AND CAD HISTORYRoutine screening. Full field digital images were obtained in mediolateral oblique andcraniocaudal projections. CAD images w ere reviewed. The current study is compared to the examinations of June and September 08, 2008 from the [facility]. There is moderately dense fibroglandular parench [...] mammograms werealso examined with computer-aided detection software ([employer] Reported By: ELVIS SMITH M.D. 00-Ofp-462857:46 DEXA BONE DENSITY STUDY (HP) Radiology Report See Note (Normal) Comments: Exam Number: [id number] DEXA AXIAL SKELETON A DEXA scan was [...] IMPRESSIONOsteopenia. Reported By: ROGELIO KUMAR :14 TSH (80552) Comments: PATIENT WAS FASTINGPERFORMED BY: LabCo Vbirql3360 [facility] [id number] TSH 1.980 {uIU/mL} (Normal) Range: 0.450-4.500 :14 METABOLIC PANEL, COMPREHENSIVE Comments: PATIENT WAS FASTINGPERFORMED BY: [facility] Gcttox3018 [facility] [id number] (30921) ALT (SGPT) 17 [iU]/L (Normal) Range: 0-40 [...] mg/dL (Normal) Range: 65-99 :14 LIPID PANEL (87782) Comments: PATIENT WAS FASTINGPERFORMED BY: Blog[employer] LabClassLink70 [facility] [id number] HDL Cholesterol 84 mg/dL (Normal) Comments: According [...] MANUAL DIFF Comments: PATIENT WAS FASTINGPERFORMED BY: LabCoDialsUkjxjz6736 [facility] [id number] Information: [id number] (11184) Baso (Absolute) 0.1 {x10E3/uL} (Normal) Range: 0.0-0.2 [...] 3.80-5.10 WBC 6.3 {x10E3/uL} (Normal) Range: 4.0-10.5 47-Zrl-898699:23 Urinalysis, Office (79860) UA - BILIRUBIN Negative (Normal) UA - BLOOD Negative (Normal) UA - GLUCOSE Negative (Normal) UA - KETONES Negative mg/dL (Normal) UA - LEUKOCYTE ESTERASE Negative (Normal) UA - NITRITE Negative (Normal) UA - PH 7.0 (Normal) UA - PROTEIN Negative mg/dL (Normal) UA - SPECIFIC GRAVITY 1.010 (Normal) URINE UROBILINGN JOSÉ MIGUEL TIMED Normal mg/dL (Normal) 35-Ilf-625019:48 Hepatic Function Panel (7) Comments: PERFORMED BY: LabCoAtlantic Rehabilitation InstitutePcqviy6271 [facility] [id number] Albumin, Serum 4.4 g/dL (Normal) Range: 3.5-4.8 Alkaline Phosphatase, S 57 [iU]/L (Normal) Range: 25-165 ALT (SGPT) 25 [iU]/L (Normal) Range: 0-40 AST (SGOT) 27 [iU]/L (Normal) Range: 0-40 Bilirubin, Direct 0.14 mg/dL (Normal) Range: 0.00-0.40 Bilirubin, Total 0.4 mg/dL (Normal) Range: 0.1-1.2 Protein, Total, Serum 6.4 g/dL (Normal) Range: 6.0-8.5 :29 Urinalysis, Office (90593) UA - BILIRUBIN Negative (Normal) UA - [...] Comments: PATIENT NOT FASTINGClinical Information: SRC:UR ADD [id number] PERFORMED BY: [facility] NetworkC[facility] [id number] COUNT (32896) Result 1 NG36 (Normal) Comments: No growth in 36 - 48 hours. Urine Culture,Comprehensive Final report (Normal) :50 Metabolic Panel, Basic (22816) Comments: PATIENT NOT FASTINGClinical Information: ADD DRAW FEE [id number] ADD J 28969 PERFORMED BY: AB[facility] NetworkCape [facility] [id number] BUN 16 mg/dL (Normal) Range: 5-26 BUN/Creatinine [...] mmol/L (Normal) Range: 135-145 :58 Urinalysis, Office (33551) UA - BILIRUBIN Negative (Normal) UA - BLOOD Hemolyzed Trace (Normal) UA - GLUCOSE Negative (Normal) UA - KETONES Negative mg/dL (Normal) UA - LEUKOCYTE ESTERASE Negative (Normal) UA - NITRITE Negative (Normal) UA - PH 7.0 (Normal) UA - PROTEIN Negative mg/dL (Normal) UA - SPECIFIC GRAVITY 1.010 (Normal) URINE UROBILINGN JOSÉ MIGUEL TIMED 2 mg/dL (Normal) 7-Vcc-175753:23 SHOULDER,MIN 2 VIEWS Radiology Report See Note (Normal) Comments: Exam Number: [id number] SHOULDER SERIES. HISTORYA 73-year-old woman with right shoulder pain. FINDINGSRight shoulder series. Cortical outlines are intact. Bones arenormally aligned, and joint spaces ar e well maintained. Soft tissuesare unremarkable. IMPRESSIONUnremarkable right shoulder series. Reported By: DAYNA RECINOS M.D. :07 Hepatic Function Panel (7) Comments: PATIENT WAS FASTINGPERFORMED BY: [facility] NetworkC[facility] [id number] Albumin, Serum 4.3 g/dL (Normal) Range: 3.5-4.8 Alkaline Phosphatase, S 63 [iU]/L (Normal) Range: 25-165 ALT (SGPT) 27 [iU]/L (Normal) Range: 0-40 AST (SGOT) 29 [iU]/L (Normal) Range: 0-40 Bilirubin, Direct 0.10 mg/dL (Normal) Range: 0.00-0.40 Bilirubin, Total 0.3 mg/dL (Normal) Range: 0.1-1.2 Protein, Total, Serum 7.0 g/dL (Normal) Range: 6.0-8.5 :38 TSH (81418) Comments: PATIENT NOT FASTINGClinical Information: ADD DRAW FEE [id number] ADD J 08668 PERFORMED BY: [facility] NetworkC[facility] [id number] TSH 1.604 {uIU/mL} (Normal) Range: 0.450-4.500 :25 Metabolic Panel, Comprehensive Comments: PATIENT WAS FASTINGClinical Information: ADD 175610, L56367 PERFORMED BY: [facility] NetworkC[facility] [id number] (46184) A/G Ratio 2.4 (Normal) Range: 1.1-2.5 Albumin, [...] mmol/L (Normal) Range: 135-145 :25 Lipid Panel (49966) Comments: in six months (approximately); PATIENT WAS FASTINGPERFORMED BY: [facility] Yordjn9974 [facility] [id number] Cholesterol, Total 256 mg/dL (Abnormal) Range: 100-199 HDL Cholesterol 73 mg/dL (Normal) Comments: According to ATP-III Guidelines, HDL-C >59 mg/dL is considered anegative risk factor for CHD. LDL Cholesterol Calc 156 mg/dL (Abnormal) Range: 0-99 LDL/HDL Ratio 2.1 {ratio_units} (Normal) Range: 0.0-3.2 Triglycerides 133 mg/dL (Normal) Range: 0-149 VLDL Cholesterol Thanh 27 mg/dL (Normal) Range: 5-40 :20 Urinalysis, Office (12890) UA - BILIRUBIN Negative (Normal) UA - [...] Report See Note (Normal) Comments: Exam Number: [id number] MYOCARDIAL PERFUSION SCAN 11.7 millicuries of Tc99m [...] By: JOSE ALLEN M.D. :55 Urinalysis, Office (46526) UA - BILIRUBIN Negative (Normal) UA - [...] EARLY ANTIGN Comments: PATIENT NOT FASTINGPERFORMED BY: LabCoAtlantic Rehabilitation InstituteYfulyv0836 [facility] [id number] (28670) EBV Ab VCA, IgG 1276 AU/mL (Abnormal) [...] Clinical Information: SRC:TH PERFORMED BY: LATA [facility] Vzuxhi97[address] [place] [id number] Result 1 RRF (Normal) Comments: Routine respiratory graeme Upper Respiratory Culture Final report (Normal) :48 Rapid Strep Test, Office (57314) Comments: neg Rapid Strep Test, Office Negative [...] T PROT 7.0 g/dL (Normal) Range: 6.4-8.2 92-Mzu-70302:20 LIPID CHOL 238 mg/dL (Abnormal) Comments: <200 [...] mg/dL VLDL 13 mg/dL (Normal) Range: 5-40 86-Xst-717892:41 URINE CELINE CULTURE-JOSÉ MIGUEL COL Comments: PATIENT NOT FASTINGClinical Information: SRC:UR PERFORMED BY: LabCoAtlantic Rehabilitation InstituteVpyxij5117 [facility] [id number] COUNT (36497) Result 1 NG36 (Normal) Comments: No growth in 36 - 48 hours. Urine Culture,Comprehensive Final report (Normal) 69-Srn-536495:30 Urinalysis, Office (06337) UA - LEUKOCYTE ESTERASE Trace (Normal) UA - NITRITE Negative (Normal) UA - PH 7.5 (Normal) UA - PROTEIN Negative mg/dL (Normal) URINE UROBILINGN JOSÉ MIGUEL TIMED 2 mg/dL (Normal) UA - BILIRUBIN Negative (Normal) UA - BLOOD Negative (Normal) UA - GLUCOSE Negative (Normal) UA - KETONES Negative mg/dL (Normal) UA - SPECIFIC GRAVITY 1.010 (Normal) 71-Wji-624994:09 URINE CELINE CULTURE (JOSÉ MIGUEL COL Comments: PATIENT NOT FASTINGClinical Information: SRC:UR ADD [id number] PERFORMED BY: LATA [facility] Igsbtr[address] [place] [id number] COUNT) (56366) Antimicrobial MIHEAD (Normal) Comments: S = Susceptible; [...] mL (Normal) Urine Final report Culture,Comprehensive (Normal) 27-Oaq-821730:56 Urinalysis, Office (31384) UA - BILIRUBIN Negative (Normal) UA - BLOOD Non Hemolyzed Trace (Normal) UA - GLUCOSE Small (Normal) UA - KETONES Small mg/dL (Normal) UA - LEUKOCYTE ESTERASE Small (Normal) UA - NITRITE Positive (Normal) UA - PH 6.0 (Normal) UA - PROTEIN 300 mg/dL (Normal) UA - SPECIFIC GRAVITY 1.020 (Normal) URINE UROBILINGN JOSÉ MIGUEL TIMED 2 mg/dL (Normal) 36-Cni-09973:12 L/S SPINE,MIN 4 VIEWS Radiology Report See Note (Normal) Comments: Exam Number: [id number] LUMBAR SPINE, FIVE VIEWS. INDICATIONLow back pain. [...] pain, right Knee pain, right : Reviewed Skein Drier Letter Indication: Knee pain, right Knee pain, [...] : Follow up in 4 months with [facility] for Gen Med Indication: Osteoporosis Osteoporosis [...] back pain Planned Observations URINE CELINE CULTURE-IDENTIFICATN (04937)Indication: Right flank pain On: 0-Sea-238204:15 Request CALCIFIDIOL (27288) VIT D 25Indication: Osteoporosis On: 87-Jwr-782271:51 Request MICROALBUMIN: CREATININE RATIO (59522) AND (13231)Indication: Hypertension On: 45-Vmi-061206:51 Request METABOLIC PANEL, COMPREHENSIVE (79016)Indication: Hypertension On: 51-Ppf-946032:51 Request LIPID PANEL (70429)Indication: Hypertension On: 62-Tuf-669694:51 Request CBC W/AUTO DIFF WBC (34237)Indication: Hypertension On: 69-Ozk-889469:51 Request URINALYSIS, W/ MICRO (56585)Indication: Hypertension On: 96-Tav-822050:10 Request METABOLIC PANEL, COMPREHENSIVE (55774)Indication: Hypertension On: 55-Xcz-714555:10 Request LIPID PANEL (75403)Indication: Hypertension On: 09-Fgc-260096:10 Request CBC WITH MANUAL DIFF (30065)Indication: Hypertension On: 39-Olh-102373:10 Request CBC, PLATELETS & MANUAL DIFF (07443)Indication: Hypertension On: 7-Xnn-814981:12 Request MICROALBUMIN: CREATININE RATIO (56711) AND (08851)Indication: Hypertension On: 40-Uzq-879616:43 Request METABOLIC PANEL, COMPREHENSIVE (21309)Indication: Hypertension On: 13-Hef-377729:43 Request LIPID PANEL (45769)Indication: Hypertension On: 10-Bel-290574:43 Request CBC WITH MANUAL DIFF (99780)Indication: Hypertension On: 08-Mcd-059983:43 Request CREATININE CLEARANCE (81790)Indication: Proteinuria On: 64-Ayo-376166:12 Request Comments: now 24 hour urine for Protein (37260)Indication: Proteinuria On: 76-Lpl-050242:12 Request Collagen Crosslinked N-Telopeptide (58014)Indication: Osteoporosis On: 85-Szg-92850:59 Request Comments: 24 hour urine check now and in six months (approximately) HEPATIC FUNCTION PANEL (38894)Indication: oncomycosis On: 87-Jvx-76790:03 Request Comments: monthly x 3 EB ANTIBODY VIRAL CAPSID (59100) C6Zehgxuoiti: Pharyngitis, acute On: 43-Axu-058455:13 Request EB ANTIBODY NUCLR ANTIGN (27824)Indication: Pharyngitis, acute On: 34-Uep-819621:13 Request CELINE CULTURE-OTHER (37437)Indication: Pharyngitis, acute On: 59-Wyp-97914:48 Request URINALYSIS W/O MICRO (13186)Indication: Hypertension On: 59-Xhw-99224:16 Request METABOLIC PANEL, COMPREHENSIVE (21271)Indication: Hypertension On: :16 Request CBC WITH MANUAL DIFF (22910)Indication: Hypertension On: :16 Request Comments: in six months (approximately) LIPID PANEL (29769)Indication: Hypertension On: 37-Kym-53255:16 Request CBC (Auto) (09907)Indication: Hypercholesterolemia On: 60-Rnx-90281:24 Request Metabolic Panel, Comprehensive (57560)Indication: Hypercholesterolemia On: :24 Request Lipid Panel (49421)Indication: Hypercholesterolemia On: 47-Jlg-44439:24 Request Comments: in six months (approximately) Metabolic Panel, Comprehensive (43070)Indication: Hypercholesterolemia On: 05-Dmz-649528:09 Request Lipid Panel (37444)Indication: Hypercholesterolemia On: 31-Nqy-852656:09 Request Comments: 4m Planned Encounters Medical; 3 Month FU - On: 08-Oct-2018 13:45 [facility] Nguyen Santana CNP, CNP Mary Planned Procedures ELECTROCARDIOGRAM, COMPLETE (ECG) On: 30-Jul-2018 Intent (87889)By: Zoraida Stewart Comments: Sinus Rhythm-HR 86-occasional ectopic ventricular beat-No new changes from last EKG. SCREENING DIGITAL TOMOSYNTHESIS OF On: 11-Jun-2018 Intent BREAST (48782)By: Nguyen Santana CNP, CNP Mary DEXA SCAN AXIAL SKELETON (59463)By: On: 11-Jun-2018 Intent Nguyen Santana CNP, CNP Mary Flu Vaccine (Quadrivalent) 29504Ci: On: 11-Jun-2018 Intent Max GIVENS MaryAnselmo Santana CNP Mary Aerosol Treatment (35820)By: Terry, On: 09-Nov-2017 Intent Zoraida Comments: Better air exchange after aerosol treatment. Holter Monitor 24 hrsBy: Max GIVENS, On: 15-Sep-2017 Intent Nguyen Santana CNP Mary Spirometry (60942)By: Max GIVENS, On: 15-Sep-2017 Intent Nguyen Santana CNP Mary Comments: mod severe restriction ELECTROCARDIOGRAM, COMPLETE (ECG) On: 15-Sep-2017 Intent (90982)By: Nguyen Santana CNP Comments: sinus bradycardia Nguyen GIVENS MAGNETIC RESONANCE IMAGING OF RIGHT On: 05-Jul-2017 Intent KNEE WITHOUT CONTRAST (43589)By: Nguyen Santana CNP, CNP Mary Flu Vaccine (Quadrivalent) 56746Xh: On: 14-Jun-2017 Intent Nguyen Santana CNP, CNP Mary Comments: Lot:[id number]:03/19/18Dose:0.5mLRoute:IMSite:L DltdGiven By:asVIS signed Ultrasound - LiverBy: Nguyen Santana CNP On: 08-Mar-2017 Intent E Nguyen Santana CNP Comments: REpeat in Jun 2017 CT - Abdomen & Pelvis Stone On: 30-Nov-2016 Intent ProtocolBy: Nguyen Santana CNP, CNP, Mary E Flu Vaccine (Quadrivalent) [id number]: On: 23-Aug-2016 Intent Slafre[place] GREEN END MANJo Flu Vaccine (Quadrivalent) [id number]: On: 15-Sep-2015 Intent George Bueno MD Comments: lot [id number]: 03/31/2016site/route L jean, IMamt 0.5mlVIS and ABN signed when applicableChelsea, PUNCH OPERATOR Kenalog Injection, 10 mgm (J3301)By: On: 20-Mar-2015 Intent George Bueno MD Comments: x4 TDAP VACCINE >7 IM ([id number])By: Ximena On: 17-Mar-2015 George Mayer MD MRI - Shoulder(s) - RightBy: Ximena On: 17-Mar-2015 George Mayer MD ADMINISTRATION OF INFLUENZA VIRUS On: 16-Sep-2014 Intent VACCINE ([id number])By: George Bueno MD Flu Vaccine (Quadrivalent) [id number]: On: 16-Sep-2014 Intent George Bueno MD ELECTROCARDIOGRAM, COMPLETE (ECG) On: 16-Sep-2014 Intent ([id number])By: George Bueno MD Comments: routine for baseline see scanned document of test done to see results reviewed today with patient Aerosol Treatment ([id number])By: Max On: 01-Sep-2014 Intent Nguyen GIVENS CNP, [...] BONE DENSITY, AXIAL SKELETON On: 14-Jan-2014 Intent ([id number])By: George Bueno MD MAMMOGRAM, SCREENING, BOTH BREASTS On: 14-Jan-2014 Intent ([id number])By: George Bueno MD Eprescribed prescriptions ([id number])By: On: 14-Jan-2014 Intent George Bueno MD FLU VAC, SPLIT, >3 YEARS, INTRAMUSC On: 06-Sep-2013 Intent ([id number])By: PAM Sanz Comments: Lot #:[id number] date:ount given:0.5mlRoute: IMSite given:L DltdGiven by: VIS and ABN signed ADMINISTRATION OF INFLUENZA VIRUS On: 06-Sep-2013 Intent VACCINE (G0008)By: PAM Sanz Breast Screening - BilateralBy: On: 05-Jul-2013 Intent George Bueno MD Eprescribed prescriptions ([id number])By: On: 07-Mar-2013 Intent Shelby Padilla ELECTROCARDIOGRAM, COMPLETE (ECG) On: 14-Dec-2012 Intent ([id number])By: Nguyen Santana CNP, CNP, Mary E ADMINISTRATION OF INFLUENZA VIRUS On: 11-Sep-2012 Intent VACCINE (G0008)By: George Bueno MD FLU VAC, SPLIT, >3 YEARS, INTRAMUSC On: 11-Sep-2012 Intent ([id number])By: George Bueno MD Eprescribed prescriptions ([id number])By: On: 29-May-2012 Intent George Bueno MD EKG ([id number])By: George Bueno MD On: 28-Feb-2012 Intent Comments: see scanned document of test done to see results reviewed today with patient Holter Monitor 24 hrsBy: Ximena ALEXANDRE, On: 28-Feb-2012 Intent George Moncada DXA, BONE DENSITY, AXIAL SKELETON On: 28-Feb-2012 Intent ([id number])By: George Bueno MD MAMMOGRAM, SCREENING, BOTH BREASTS On: 28-Feb-2012 Intent ([id number])By: George Bueno MD Pulse Oximetry ([id number])By: Yvon On: 28-Feb-2012 Intent PAM Ultrasound - AortaBy: Ximena ALEXANDRE, On: 17-Jan-2012 Intent George Moncada Carotid DopplerBy: George Bueno MD On: 17-Jan-2012 Intent Pulse Oximetry ([id number])By: Yvon On: 17-Jan-2012 Intent PAM Spirometry ([id number])By: Max GIVENS, On: 10-Jan-2012 Intent Nguyen Skinner CNP Comments: Servere airway obstruction with low vital capacity Aerosol Treatment ([id number])By: Max On: 10-Jan-2012 Intent Nguyen GIVENS CNP, Mary E Solu -Medrol Injection, 125 mg On: 03-Jan-2012 Intent ([id number])By: Nguyen Santana CNP Comments: Lot # [id number]-R hip. IMDose 125nggiven by:Nguyen Lane CNP Radiology - ChestBy: Nguyen Santana CNP On: 03-Jan-2012 Intent Nguyen Mata CNP Aerosol Treatment ([id number])By: Max On: 03-Jan-2012 Intent Nguyen GIVENS CNP, Mary E Pulse Oximetry ([id number])By: Gab BETHEA, On: 03-Jan-2012 Intent Taryn Solu -Medrol Injection, 125 mg On: 30-Dec-2011 Intent ([id number])By: Nguyen Santana CNP Comments: Lot #[id number]-left hipDose-125mggiven by: Marie Alvarado LPN CNP, Mary E Aerosol Treatment ([id number])By: Max On: 30-Dec-2011 Intent Nguyen GIVENS CNP, Mary E Solu -Medrol Injection, 125 mg On: 28-Dec-2011 Intent ([id number])By: Nguyen Santana CNP Comments: Lot #[id number]-right hipDose-125 mggiven by: Marie Alvarado LPN CNP, Mary E Aerosol Treatment ([id number])By: Max On: 28-Dec-2011 Intent Nguyen GIVENS E Max GIVENS, Mary Pulse Oximetry ([id number])By: Max GIVENS, On: 26-Dec-2011 Intent Mary Max GIVENS, Mary Aerosol Treatment ([id number])By: Max On: 26-Dec-2011 Intent CHON, Mary Max GIVENS, Mary FLU VAC, SPLIT, >3 YEARS, INTRAMUSC On: 19-Aug-2011 Intent ([id number])By: George Bueno MD Comments: refuse Echo CompleteBy: George Bueno MD On: 23-Jun-2011 Intent Nuclear Stress Test/Stress On: 23-Jun-2011 Intent SPECT/TreadmillBy: George Bueno MD EKG ([id number])By: George Bueno MD On: 23-Jun-2011 Intent ADMINISTRATION OF PNEUMOCOCCAL On: 15-Dec-2010 Intent VACCINE (G0009)By: George Bueno MD PNEUM VAC ADLT/IMUMNOSPR, SBC/INTRM On: 15-Dec-2010 Intent ([id number])By: George Bueno MD MAMMOGRAM, SCREENING, BOTH BREASTS On: 15-Dec-2010 Intent ([id number])By: George Bueno MD Eprescribed prescriptions ([id number])By: On: 15-Dec-2010 Intent George Bueno MD Aerosol Treatment ([id number])By: Ximena On: 06-Dec-2010 Intent George ALEXANDRE Pulse Oximetry ([id number])By: Yvon On: 06-Dec-2010 Intent PAM Spirometry ([id number])By: Ximena ALEXANDRE, On: 31-Aug-2010 Intent George Moncada Radiology - ChestBy: George Bueno MD On: 31-Aug-2010 Intent M Nuclear Stress Test/Stress On: 27-May-2010 Intent SPECT/TreadmillBy: George Bueno MD ELECTROCARDIOGRAM, COMPLETE (ECG) On: 27-May-2010 Intent (25940)By: George Bueno MD Spirometry ([id number])By: Ximena ALEXANDRE, On: 27-May-2010 Intent George Moncada Pulse Oximetry (09594)By: Ximena ALEXANDRE, On: 27-May-2010 Intent George Moncada MRI - BrainBy: George Bueno MD On: 27-May-2010 Intent Aerosol Treatment ([id number])By: Feliciano DRUMMOND, On: 22-Mar-2010 Intent Holly A Pulse Oximetry ([id number])By: Ashlee, On: 22-Mar-2010 Intent Stephanie Comments: 95%- spirometry with mod airway obsst CT - Brain/Head (IV Contrast On: 04-Feb-2010 Intent Needed)By: George Bueno MD Comments: attention posterior fossa EKG ([id number])By: George Bueno MD On: 01-Jan-2010 Intent DXA, BONE DENSITY, AXIAL SKELETON On: 01-Jan-2010 Intent ([id number])By: George Bueno MD MAMMOGRAM, SCREENING, BOTH BREASTS On: 01-Jan-2010 Intent ([id number])By: George Bueno MD MRI - Shoulder(s) - RightBy: Ximena On: 01-Jan-2010 Intent George ALEXANDRE Radiology - Shoulder - RightBy: On: 07-Jan-2009 Intent George Bueno MD Holter Monitor 24 hrsBy: Ximena ALEXANDRE, On: 09-Dec-2008 Intent George Moncada ELECTROCARDIOGRAM, COMPLETE (ECG) On: 09-Dec-2008 Intent ([id number])By: George Bueno MD Spirometry (79216)By: Ximena ALEXANDRE, On: 09-Dec-2008 Intent George Moncada Pulse Oximetry (98049)By: Ximena ALEXANDRE, On: 09-Dec-2008 Intent George Moncada EKG ([id number])By: George Bueno MD On: 29-May-2008 Intent Nuclear Stress Test/Stress On: 29-May-2008 Intent SPECT/TreadmillBy: George Bueno MD Pulse Oximetry (59532)By: Daniel ALBA, On: 13-Mar-2008 Intent Gin SPECIMEN HNDLNG/TRNSPRT, OFFC > LAB On: 13-Mar-2008 Intent ([id number])By: Gin Sanchez LPN Echo CompleteBy: George Bueno MD On: 29-Nov-2007 Intent Radiology - Lumbar SpineBy: Ximena On: 29-May-2007 George Mayer MD Radiology - Ankle - LeftBy: Ximena On: 28-Jun-2006 George Mayer MD Planned Medications INJECTION, METHYLPREDNISOLONE SODIUM SUCCINATE, UP TO 125 MG Ordered: 28-Dec-2011 Pending Ciesa RESISTANCE WELDER, Mary Ciesa RESISTANCE WELDER, Mary INJECTION, METHYLPREDNISOLONE SODIUM SUCCINATE, UP TO 125 MG Ordered: 30-Dec-2011 Pending Ciesa RESISTANCE WELDER, Mary Ciesa RESISTANCE WELDER, Mary INJECTION, METHYLPREDNISOLONE SODIUM SUCCINATE, UP TO 125 MG Ordered: 03-Jan-2012 Pending Ciesa RESISTANCE WELDER, Mary Ciesa RESISTANCE WELDER, Mary INJECTION, TRIAMCINOLONE ACETONIDE, NOT OTHERWISE SPECIFIED, [...] Indication: Hypertension Hypertension : DISCONTINUED - URINALYSIS (26999) Indication: Hypertension Hypertension : DISCONTINUED - MICROALBUMIN: CREATININE RATIO (91580) AND (30871) Indication: Hypertension Screening for breast cancer : DISCONTINUED - BILATERAL MAMMOGRAMS (70476) Indication: Screening for breast cancer Osteoporosis : [...] The patient does have durable power of commercial real estate attorney and living will. The patient has noticed dropping activities and interests, poor spirits most of time, staying at home rather than doing something new or going out, having problems with memory than others, feeling worthless and lack of energy. Other providers contributing to the patient's care are tattoo and body artist (nusrat) and other: (last eye exam 2017- [...] several years, has had colonoscopy's last by [place] and normal. Encounter Diagnosis: Nonsmoker, BMI 27.0-27.9,adult, [...] using antibiotics. Note for Infection: went to [facility] urgent care last was put on antibiotic [...] Need for immunization against influenza), Mitral Valve Hvnealqrifwyx915.6), Osteoporosis (733.00), Irritable bowel syndrome (564.1), ATHEROSCLEROSIS, AORTIC (440.0), Anxiety (300.00), History of colon polyps, Asthma, intrinsic, mild intermittent, with status asthmaticus, Osteoarthritis, Shoulder pain (719.41), Allergic rhinitis [facility] Office Visit On: 19-Mar-2015 10:42 Encounter Reason: Injections - The medication the patient is here to receive is other (2 cc marcaine lot# [id number] exp: 01-31-2016 1cc kenalog lot# [id number] exp right shoulder ).Encounter Diagnosis: Shoulder pain [...] The patient does have durable power of commercial real estate attorney and living will. The patient has noticed nothing from the geriatic depression scale. Other providers contributing to the patient's care are tattoo and body artist (Dr Silverio) and other: (Dr ridley saw [...] (733.00), Hypercholesterolemia (272.0), Osteoarthritis (715.96), Mitral Valve Pcdmejqdiumyg943.6), Colon Polyps, History of (V12.72), Asthma,Intrinsic (493.11), [...] incontinence, female, Fever and chills, Mitral Valve Huykvhbjckzyz013.6), Colon Polyps, History of (V12.72), Irritable bowel [...] (493.11), Irritable bowel syndrome (564.1), Mitral Valve Imydzprzldoac542.6), Colon Polyps, History of (V12.72), Osteoporosis (733.00), [...] The patient does have durable power of commercial real estate attorney and living will. The patient has noticed having problems with memory than others. Other providers contributing to the patient's c are are tattoo and body artist (Dr Silverio) and other: (Dr Rodrigues and [...] (401.0)), Osteoarthritis (715.96), Anxiety (300.00), Mitral Valve Owbsbcyiofjsg566.6), Osteoporosis (733.00), Allergic Rhinitis(477.9), Tremors (781.0), ATHEROSCLEROSIS, [...] from Hypertension (401.0)), Anxiety (300.00), Mitral Valve Urkuhmisduqrc361.6), Hypercholesterolemia (272.0), Asthma,Intrinsic (493.11), Colon Polyps, History [...] from Hypertension (401.0)), Anxiety (300.00), Mitral Valve Iurfgqydtqatn335.6), Osteoarthritis (715.96), Osteoporosis (733.00), Allergic Rhinitis(477.9), ATHEROSCLEROSIS, [...] (733.00), Hypercholesterolemia (272.0), Asthma,Intrinsic (493.11), Mitral Valve Qtmfotuhztjlg240.6), Sleep disorder (780.50), ATHEROSCLEROSIS, AORTIC (440.0), Anxiety [...] ATHEROSCLEROSIS, AORTIC (440.0), Bradycardia (427.89), Mitral Valve Gbbthllpdvdya909.6), Hip bursitis 726.5, Hypercholesterolemia (272.0), Anxiety (300.00), [...] Hypercholesterolemia (272.0), ATHEROSCLEROSIS, AORTIC (440.0), Mitral Valve Ivdcbfrifjsid705.6), Hip bursitis 726.5 [facility] [...] Anxiety (300.00), Chronic cough (786.2), Mitral Valve Pqeotwygvuvby737.6), Irritable bowel syndrome (564.1), Asthma,Intrinsic (493.11), Colon [...] Sleep disorder (780.50), Tremors (781.0), Mitral Valve Bsthmyutbvdsl451.6), Anxiety (300.00), Osteoporosis (733.00), Irritable bowel syndrome [...] from Hypertension (401.0)), Tremors (781.0), Mitral Valve Jxkqoowpwwlpl145.6), WWV-Bare, Shoulder pain (719.41), Headache (784.0), Irritable [...] (427.89), Irritable bowel syndrome (564.1), Mitral Valve Ncpjixmenacol393.6), Headache (784.0), WWV-Bare [facility] [...] (427.89), Irritable bowel syndrome (564.1), Mitral Valve Clwqnzfdalucb222.6), Other specified pruritic conditions (698.8), Headache (784.0) [...] (788.1), Low back pain (724.2), Mitral Valve Ofrzfctxikphj059.6), Osteopenia (733.90), Diarrhea (787.91), Sleep disorder (780.50), [...] (733.90), Acute sinusitis, unspecified (461.9), Mitral Valve Mspvpjkubnpgu832.6), WWV-Bare, Low back pain (724.2), Sciatica (724.3), [...] were reported. none reported. Note for Sinusitis/: [place] heat over bodyEncounter Diagnosis: ACUTE PHARYNGITIS (462.), [...] (272.0), Osteoarthritis (715.96), Allergic Rhinitis(477.9), Mitral Valve Phjkzhyzotpny824.6), Low back pain (724.2), Sciatica (724.3), WWV-Bare [...] (845.09), Hypertension (401.0), Hypercholesterolemia (272.0), Mitral Valve Udradfnaqhpzt191.6), Sciatica (724.3), Allergic Rhinitis(477.9), WWV-Bare, Low back [...] (715.96), Hypercholesterolemia (272.0), Osteopenia (733.90), Mitral Valve Yqqxzfewwddbg295.6), WWV-Bare, Sciatica (724.3) [facility] Refill [...]
--- OUTSIDE RECORDS SUMMARY | 2018-10-28 14:13 | XMS RPT_ITS | Continuity of Care Document ---
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 MRI done and went to [facility]. 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 wheezing is better. echo, [...] qd (137 MCG/SPRAY) Active CALCIUM + D, 921-809DD-KPHK (Oral Tablet) 1 qd for 0 days [...] days Quantity: 30 {Tablet_Disperse} Refills: 0 Ordered:17-Jan-2012 PMA Sanz Start : 26-Dec-2011 End : 17-Jan-2012 [...] Quantity: 30 {Capsule_ER_24HR} Refills: 1 Ordered:31-Aug-2010 PAM Sazn Start : 29-Jul-2010 End : 31-Aug-2010 Inactive [...] Quantity: 30 {Tablet} Refills: 0 Ordered:19-Dec-2017 Long BRICK LAYER, Ariana L Start : 15-Sep-2017 End : [...] : 10-Nov-2017 End : 19-Dec-2017 Inactive ZOSTAVAX, 25886UBG/0.65ML (Subcutaneous Solution Reconstituted) 1 For Solution once [...] : 15-Sep-2015 End : 15-Sep-2015 Discontinued Creon 66242 UNIT Oral Capsule Delayed Release Particles 2 [...] [facility]. [facility] Status: Inactive as of 19-Mar-2015 Other [...] Result: Comments: See Note; NOTES: [facility] [address] [place] [address] OFFICE VISIT Date of Service: 03/31/18 MR#: [id number] Acct: [id number] Name: GAYATRI NAQVI Rep #: [id number] : 1935 Provider: RHODA Cisse Age/Sex: 82/F Location: [facility] Status: Signed Intake Vital Signs03/31/18 Height 5 [...] Medications New: nitrofurantoin monohyd/m-cryst 100 mg (Macrobid) mg PO Q12H 7 days UTI N39.0 [...] Visit Report Result: Comments: See Note; NOTES: [facility] [address] [place] [address] OFFICE VISIT Date of Service: 02/28/18 MR#: [id number] Acct: [id number] Name: GAYATRI NAQVI Rep #: [id number] : 1935 Provider: Romel Silverio MD Age/Sex: 82/F Location: [facility] Status: Signed HPI HPI Details: GAYATRI NAQVI, [...] Signature: Date (if applicable) CC: Nguyen Santana LABOR ECONOMICS PROFESSOR; Dayna Byrne MD 09-Feb-2018 Urgent Care Visit Report Result: Comments: See Note; NOTES: [facility] [address] [place] [address] OFFICE VISIT Date of Service: 02/09/18 MR#: [id number] Acct: [id number] Name: GAYATRI NAQVI Rep #: [id number] : 1935 Provider: Anjel DUONG Age/Sex: 82/F Location: [facility] Status: Signed Intake Vital Signs02/09/18 Height 5 [...] Result: Comments: See Note; NOTES: [facility] [address] [place] [address] OFFICE VISIT Date of Service: 01/26/18 MR#: [id number] Acct: [id number] Name: GAYATRI NAQVI Rep #: [id number] : 1935 Provider: Anjel DUONG Age/Sex: 82/F Location: [facility] Status: Signed Intake Vital Signs01/26/18 Height 5 [...] changes Exam Const General: cooperative, healthy appearing [facility] Head: normal to inspection Ears: hearing [...] the above. This note was generated with Emergent Propertiesation software. It may contain incorrect words, spelling, [...] Only (Routine) Result: Comments: See Note; NOTES: [facility] Imaging Services [address] [place] [address] Lower Ext Joint Only (Routine) MR#: [id number] Acct: [id number] Name: GAYATRI NAQVI Rep # : [id number] : 1935 F 81 From: Gianluca Camarena MD PCP: Nguyen Santana Status: REG CLI Study: Lower Ext Joint Only (Routine) Date of Exam: 07/13/17 Exam# [id number] Ordering Dr: Nguyen Santana STUDY: MRI RIGHT [...] , Service support , CC: Nguyen Santana Cullet Washer: Signed 07-Jul-2017 PT D/C Summary (1) Result: Comments: See Note; NOTES: [facility] [address] [place] [address]. [address] [place] [address] Fax REHABILITATION SERVICES DISCHAR GE SUMMARY MR#: [id number] Acct: [id number] Name: GAYATRI NAQVI Rep #: [id number] : 1935 81 From: Levon Jay DPT, OCS, CSCS Referring DrLizzy: Nguyen Santana Status: REG RCR Insurance: [employer]ICARE HP - PT D/C Summary [...] degeneratwed medial knee. MRI is approp. Medial set up worker brace may be approp after MRI if other options not available(injection, Ortho) If there are questions or concerns regarding this patient's physical therapy, please feel free to call me at [phone]. Thank you for the referral of this patient. Sincerely, Levon Jay DPT, DORA <Electronically signed by Levon Jay DPT, PITO, CSCS> 07/07/17 0642 CC: Nguyen Santana EBG Signed 21-Jun-2017 Inital Evaluation (1) - PT Result: Comments: See Note; NOTES: [facility] [address] [place] [address]. [address] [place] [address] Fax REHABILITATION SERVICES INITIAL EVALUATION MR#: [id number] Acct: [id number] Name: GAYATRI NAQVI Rep #: [id number] [...] Discharge Instruction Result: Comments: See Note; NOTES: [facility] Medical Records Department [address] [place] [address] Discharge Instruction 06/06/17 2317 MR#: [id number] Acct: [id number] Name: MONET NAQVI Rep #: [id number] : 1935 81 From: Po Herrera MD [...] your Primary Care Provider. Call [facility] ([phone]) or rep ort to the closest Emergency Room. Call 911 if necessary. 06/06/172317 <Electronically signed by Po Herrera MD> Date Po Herrera MD Cosigner Signature (If Indicated): Date CC: Nguyen Santana 06-Jun-2017 Emergency Department Summary Result: Comments: See Note; NOTES: [facility] Medical Records Department [address] [place] [address] Emergency Department Summary 06/06/172311 MR#: [id number] Acct: [id number] Name: GAYATRI NAQVI Rep #: [id number] : 1935 81 From: Po Herrera MD [...] Primary Care Provider. Call [facility] ([phone]) or report to the closest Emergency Room. Call 911 if necessary. 06/06/17 2317 <Electronically signed by Po Herrera MD> Date Po Herrera MD Cosigner Signature (If Indicated): Date CC: Nguyen Brittanyadrien 06-Jun-2017 Knee 4 or More Views Result: Comments: See Note; NOTES: [facility] Imaging Services [address] [place] [address] Knee 4 or More Views MR#: [id number] Acct: [id number] Name: DRISSGAYATRI Rep #: [id number] : 1935 F 81 From: Stephanie Diaz MD PCP: Nguyen Santana Status: REG ER Study: Knee 4 or More Views Date of Exam: 06/06/17 Exam# [id number] Ordering Dr: Po Herrera MD STUDY: X-RAY [...] Stephanie Diaz MD at 23:01 EDT Tel [phone], Service support , CC: Nguyen Santana; Po Herrera MD Cullet Washer: Signed 06-Jun-2017 Liver Result: Comments: See Note; NOTES: [facility] Imaging Services [address] [place] [address] Liver MR#: [id number] Acct: [id number] Name: GAYATRI NAQVI Rep #: [id number] : [birth year]22[birth year] F 81 From: Rogelio Kumar MD PCP: Nguyen Santana Status: REG CLI Study: Liver Date of Exam: 06/06/17 Exam# [id number] Ordering Dr: Nguyen Santana STUDY: ABDOMINAL ULTRASOUND [...] Kumar MD at 11:47 EDT Tel [phone], Service support , CC: Nguyen Santana Cullet Washer: Signed 27-Mar-2017 Echocardiogram Complete Result: Comments: See Note; NOTES: [facility] Cardiovascular Services [address] [place] [address] Echo Complete 03/24/17 08 MR#: [id number] Acct: [id number] Name: GAYATRI NAQVI ep #: [id number] : 1935 81 From: Romel Silverio MD Attending Dr: Romel Silverio MD Status: REG I Ordering Dr: Romel Silverio MD Date: 03/24/17 Location: [facility] Sex: F C Admitted: Reason For [...] Mild (1+) mitral valve insufficiency. Trivial tricuspid tsephanie ve insufficiency. Trivial pericardial effusion. There are [...] Dictated: 03/24/17 0 822 Date Transcribed: 03/24/171832 Cullet Washer: Signed 24-Mar-2017 Nuclear Stress Test - Treadmil Result: Comments: See Note; NOTES: [facility] Imaging Services [address] [place], [place] [address] [place] [address] Howardgeorge 4d Nuclear Stress Test - Treadmil MR#: [id number] Acct: [id number] Name: JULIUS NAQVI Rep #: [id number] : 1935 81 From: Romel Silverio MD [...] views. The patient underwent exercise on a Jmaes protocol for 3 minutes completing stage 1, [...] 71%. Romel Silverio MD T: NTS JOB: [id number] 03/25/17 0927 <Electronically signed by Romel Silverio MD> Date Romel Silverio MD CC: Nguyen Santana; Romel Silverio MD Date Dictated: 03/24/17 1146 Date Transcribed: 03/24/17 1146 Cullet Washer: Signed 03-Mar-2017 Chest PA and Lateral Result: Comments: See Note; NOTES: [facility] Imaging Services [address] [place] [address] Verdana 4d Chest PA and Lateral MR#: [id number] Acct: [id number] Name: GAYATRI NAQVI Rep #: [id number] : 1935 F 81 From: Rogelio Kumar MD PCP: Nguyen Santana Status: REG CLI Study: Chest PA and Lateral Date of Exam: 03/03/17 Exam# [id number] Ordering Dr: Romel Silverio MD STUDY : [...] Kumar MD at 13:42 EDT Tel [phone], Service support , CC: Nguyen Santana; Romel Silverio MD Cullet Washer: Signed 12-Dec-2016 Abdomen/Pelvis without Cont Result: Comments: See Note; NOTES: [facility] Imaging Services [address] [place] [address] Verdana 4d Abdomen/Pelvis without Cont MR#: [id number] Acct: [id number] Name: GAYATRI NAQVI Rep #: [id number] : 1935 F 81 From: Philipp Moody MD PCP: Nguyen Santana Status: REG CLI Study: Abdomen/Pelvis without Cont Date of Exam: 12/12/16 Exam# [id number] Ordering Dr: Nguyen Santana JULIANN DY: CT [...] of the osseous structures. ORD ER #: [id number] CT/Abdomen/Pelvis without Cont IMPRESSION: Fatty liver. There are multiple colonic diverticula consistent with diverticulosis. 21mm hypodense lesion in the inferior right lobe of the l iver. This is incompletely evaluated and on contrast enhanced study. Other findings as above. Electronically Signed: Philipp Moody MD at 22:28 EDT , Service support , CC: Nguyen Santana Cullet Washer: Signed 22-Sep-2016 Upper Ext Joint Only(Routine) Result: Comments: See Note; NOTES: [facility] Imaging Services [address] [place] [address] Verda 4d Upper Ext Joint Only(Routine) MR#: [id number] Acct: [id number] Name: BERNICE NAQVI JOSEPH Briones Rep #: [id number] : 1935 F 80 From: Emmanuel Guido MD PCP: Nguyen Santana Status: REG CLI Study: Upper Ext Joint Only(Routine) Date of Exam: 09/22/16 Exam# [id number] Ordering Dr: Adilene Byrd DO STUDY: MRI [...] MD at 17:06 EST , Service support [phone], CC: Nguyen Santana; Sonia Byrd DO Cullet Washer: Signed 08-Sep-2016 Shoulder min 2 Views Result: Comments: See Note; NOTES: [facility] Imaging Services [address] [place] [address] Verdana 4d Shoulder min 2 Views MR#: [id number] Acct: [id number] Name: GAYATRI NAQVI Rep #: [id number] : 1935 F 80 From: Emmanuel Guido MD PCP: Nguyen Santana Status: REG CLI Study: Shoulder min 2 Views Date of Exam: 09/08/16 Exam# [id number] Ordering Dr: Sonia Byrd DO STUDY: X-RA [...] at 11:28 EST Tel , Service support [phone], CC: Nguyen Santana; Sonia Byrd DO Cullet Washer: Signed 06-Sep-2016 Dexa Bone Density Study (HP) Result: Comments: See Note; NOTES: [facility] Imaging Services [address] [place] [address] Verdana 4d Dexa Bone Density Study (HP) MR#: [id number] Acct: [id number] Name: LIDA NAQVI Rep #: [id number] : 1935 F 80 From: Rogelio Kumar MD PCP: Nguyen Santana Status: REG CLI Study: Dexa Bone Density Study (HP) Date of Exam: 09/06/16 Exam# [id number] Ordering Dr: Joi Santana STUDY: DUAL ENERGY [...] Rogelio Kumar MD at 13:43 EST Tel [phone], Service support [phone], CC: Nguyen Santana Cullet Washer: Signed 24-May-2016 PT D/C Summary (1) Result: Comments: See Note; NOTES: [facility] [address] [place] [address]. [address] [place] [address] Fax REHABILITATION SERVICES DISCHA RGE SUMMARY MR#: [id number] Acct: [id number] Name: GAYATRI NAQVI Rep #: [id number] [...] please feel free to call me at [phone]. Thank you for the referral of this patient. Sincerely, Norma Thomas <Electronically signed by Norma Thomas PT, MDT> 05/24/16 1347 CC: George Bueno MD ; Edson Franks DO TAPAN Signed 18-Apr-2016 Re-Evaluation - PT (1) Result: Comments: See Note; NOTES: [facility] [address] [place] [address]. [address] [place], [place] [address] Fax REEVALUATION / [facility] [address] PHYSICAL THERAPY MR#: [id number] Acct: [id number] Name: GAYATRI NAQVI Rep #: [id number] : 1935 80 From: Norma Thomas PT, [...] do not hesitate to contact me at [phone] by phone or if you have que [...] - PT Result: Comments: See Note; NOTES: [facility] [address] [place] [address]. [address] [place] [address] Fax REHABILITATION RVICES INITIAL EVALUATION MR#: [id number] Acct: [id number] Name: GAYATRI NAQVI Rep #: [id number] : 1935 80 From: Norma Thomas PT, [...] to be FAXED BACK to us at [phone] for Medicare purposes. Please let me know if there are questions or concerns regarding this plan of care. Physician Signature:__ Date: <Electronically signed by Norma Thomas PT, Cert. MDT> 03/16/16 1323 CC: George Bueno MD; Edson Franks DO TAPAN Signed For Medicare only, by signing this I certify the plan of care. Physicians Signature Date 06-Mar-2016 Discharge Instruction Result: Comments: See Note; NOTES: [facility] Medical Records Department [address] [place] [address] Discharge Instruction 03/04/16 1919 MR#: [id number] Acct: [id number] Name: GAYATRI NAQVI Rep #: [id number] : 1935 80 From: Pastor Mccain MD [...] problems, contact your doctor. Call [facility] ([phone]) or report to the closest Emergency Room. Call 911 if necessary. 03/06/16 0704 <Electronical ly signed by Pastor Mcacin MD> Date Pastor Mccain MD Cosigner Signature (If Indicated): Date CC: George Bueno MD 06-Mar-2016 Emergency Department Summary Result: Comments: See Note; NOTES: [facility] Records Department [address] [place] [address] Emergency Department Summary MR#: [id number] Acct: [id number] Name: GAYATRI NAQVI Rep #: [id number] : 1935 80 From: Pastor Mccain MD [...] Khloe Padilla C: George Alba MD T: [facility] B: [id number] 03/06/16 0704 <Electronically signed by Pastor Mccain MD> Date Pastor Mccain MD Cosigner Signature (If Indicated): Date CC: George Bueno MD; Wesley Alba MD Date Dictated: 03/05/161121 Date Transcribed: 03/05/161121 Cullet Washer: Signed 04-Mar-2016 Shoulder One View Result: Comments: See Note; NOTES: [facility] Imaging Services [address] [place] [address] Verdana 4d Shoulder One View MR#: [id number] Acct: [id number] Name: STEPHANIE NAQVI [place] Rep #: [id number] : 1935 F 80 From: Bernadette Daniel MD PCP: George Bueno MD Status: REG ER Study: Shoulder One View Date of Exam: 03/04/16 Exam# [id number] Ordering Dr: Pastor Mccain MD STUDY: X-RAY [...] MD at 19:00 EDT , Service support [phone], RAD/Shoulder One View IMPRESSION: Anatomic relocation of the left glenohume ral joint without fracture deformity. Electronically Signed: Bernadette Daniel MD at 19:00 EDT , Service support [phone], CC: George Xiao i, MD; Pastor Mccain MD Cullet Washer: Signed 04-Mar-2016 Hip 2-3 Views with Pelvis Result: Comments: See Note; NOTES: [facility] Imaging Services [address] [place] [address] Verdana 4d Hip 2-3 Views with Pelvis MR#: [id number] Acct: [id number] Name: GAYATRI ROSA Rep #: [id number] : 1935 F 80 From: Bernadette Daniel MD PCP: George Bueno MD Status: REG ER Study: Hip 2-3 Views with Pelvis Date of Exam: 03/04/16 Exam# [id number] Ordering Dr: Pastor Mccain MD STUDY: X-RAY [...] MD at 17:17 EDT , Service support [phone], RAD/Hip 2-3 Views with Pelvis IMPRESSION: Normal x-ray examination of the pelvis and hip. Chad quarles Signed: Bernadette Daniel MD at 17:17 EDT , Service support [phone], CC: George Bueno MD; Pastor Mccain MD Cullet Washer: Signed 04-Mar-2016 Shoulder min 2 Views Result: Comments: See Note; NOTES: [facility] Imaging Services [address] [place] [address] Verda 4d Shoulder min 2 Views MR#: [id number] Acct: [id number] Name: Mayra NAQVI Rep #: [id number] : 1935 F 80 From: Bernadette Daniel MD PCP: George Bueno MD Status: REG ER Study: Shoulder min 2 Views Date of Exam: 03/04/16 Exam# [id number] Ordering Dr: Zach Mccain MD STUDY: X-RAY [...] MD at 17:24 EDT , Service support [phone], Fax RAD/Shoulder min 2 Views IMPRESSION: Complete anterior dislocation of the left shoulder without identified fracture. Electronically Signed: Bernadette Daniel MD at 17:24 EDT , Service support [phone], CC: George Bueno MD; Pastor Mccain MD Cullet Washer: Signed 04-Mar-2016 Wrist min 3 Views Result: Comments: See Note; NOTES: [facility] Imaging Services [address] [place] [address] Verdana 4d Wrist min 3 Views MR#: [id number] Acct: [id number] Name: STEPHANIE NAQVI Rep #: [id number] : 1935 F 80 From: Bernadette Daniel MD PCP: George Bueno MD Status: REG ER Study: Wrist min 3 Views Date of Exam: 03/04/16 Exam# [id number] Ordering Dr: Pastor Mccain MD STUDY: X-RAY [...] at 17:12 EDT , Se rvice support [phone], RAD/Wrist min 3 Views IMPRESSION: Negative for fracture or dislocation. Electronically Signed: Bernadette Daniel MD at 17:12 EDT , Service support [phone], CC: George Bueno MD; Pastor Mccain MD Cullet Washer: Signed 24-Mar-2015 Upper Ext Joint Only(Routine) Result: Comments: See Note; NOTES: [facility] Imaging Services [address] [place] [address] MRI Report MR#: [id number] Acct: [id number] Name: GAYATRI NAQVI Rep #: [id number] : 1935 F 79 From: Gianluca Camarena MD PCP: George Bueno MD Status: REG CLI Study: Upper Ext Joint Only(Routine) Date of Exam: 03/24/15 Exam# [id number] Ordering Dr: George Bueno MD STUDY: MRI [...] at 15:58 EDT Tel , Service support [phone], CC: George Bueno MD Cullet Washer: Signed 18-Oct-2014 Emergency Department Summary Result: Comments: See Note; NOTES: [facility] Medical Records Department [address] [place] [address] Emergency Department Summary MR#: [id number] Acct: [id number] Name: DRISSMayra Rep #: [id number] : 1935 78 From: Stephanie Andersen MD [...] injury. Stephanie Andersen MD T: NTS JOB: [id number] 10/18/14 160 6 <Electronically signed by Stephanie Andersen MD> Date Stephanie Andersen MD CC: George Bueno MD Date Dictated: 10/18/14 1050 Date Transcribed: 10/18/14 105 Cullet Washer: Signed 18-Oct-2014 Discharge Instruction Result: Comments: See Note; NOTES: [facility] Medical Records Department [address] [place] [address] Discharge Instruction 10/18/14 1040 MR#: [id number] Acct: [id number] Name: GAYATRI NAQVI Rep #: [id number] : 1935 78 From: Stephanie Andersen MD [...] without Contrast Result: Comments: See Note; NOTES: [facility] Imaging Services [address] [place] [address] CAT Scan Report MR#: [id number] Acct: [id number] Name: GAYATRI NAQVI Rep #: [id number] : 1935 F 78 From: Jacklyn Vázquez MD PCP: George Bueno MD Status: REG ER Study: Brain/Head without Contrast Date of Exam: 10/18/14 Exam# [id number] Ordering Dr: Stephanie Andersen MD STUDY: C [...] MD at 10:34 EST , Service support [phone], CC: George Bueno MD; Stephanie Andersen MD Cullet Washer: Signed 18-Oct-2014 Spine Cervical without Contras Result: Comments: See Note; NOTES: [facility] Imaging Services [address] [place] [address] CAT Scan Report MR#: [id number] Acct: [id number] Name: GAYATRI NAQVI Rep #: [id number] : 1935 F 78 From: Jacklyn Vázquez MD PCP: George Bueno MD Status: REG ER Study: Spine Cervical without Contras Date of Exam: 10/18/14 Exam# [id number] Ordering Dr: Stephanie Andersen MD STUDY : [...] MD at 10:45 EST , Service support [phone], CC: George Bueno MD ; Stephanie Andersen MD Cullet Washer: Signed 13-Aug-2014 Bilat Scrn Digital & CAD Result: Comments: See Note; NOTES: [facility] Imaging Services [address] [place] [address] Breast Imaging Report MR#: [id number] Acct: [id number] Name: GAYATRI NAQVI Rep #: [id number] : 1935 F 78 From: Rogelio Kumar MD PCP: George Bueno MD Status: REG CLI Exam# [id number] Ordering Dr: George Bueno MD MAMMOGRAPHY - [...] Kumar MD at 10: 39 EST Tel [phone], Service support [phone], CC: George Bueno MD Cullet Washer: Signed 13-Aug-2014 Dexa Bone Density Study (HP) Result: Comments: See Note; NOTES: [facility] Imaging Services [address] [place] [address] Bone Density Report MR#: [id number] Acct: [id number] Name: GAYATRI NAQVI Rep #: [id number] : 1935 F 78 From: Rogelio Kumar MD PCP: George Bueno MD Status: REG CLI Study: Dexa Bone Density Study () Date of Exam: 08/13/14 Exam# [id number] Ordering Dr: George Bueno MD STUDY: DUAL [...] Rogelio Kumar MD at 13:55 EST Tel [phone], Service support [phone], CC: George Bueno MD Cullet Washer: Signed 12-Aug-2013 Bilat Scrn Digital & CAD Result: Comments: See Note; NOTES: [facility] Imaging Services [address] [place] [address] Breast Imaging Report MR#: [id number] Acct: [id number] Name: GAYATRI NAQVI Rep #: [id number] : 1935 F 77 From: Rogelio Kumar MD PCP: George Bueno MD Status: REG I Exam# [id number] Ordering Dr: George Bueno MD MAMMOGRAPHY - [...] August 12 013 at 11:28:57 AM EST [phone] Electronically Signed GP/GP If you are the referring physician and would like to consult with the radiologist who provided this interpretation, please contact Rogelio Kumar M.D. at [phone]. If this radiologist is unavailable, you will be directed to another radiologist to assist. If you are a patient with a question regarding this report, pleas e contact your referring physician directly. Professional Interpretation Provided By: [employer], Phone , These documents contain legally protected [...] of these documents. CC: George Bueno MD Cullet Washer: Signed Immunization Name Dates Details Zoster (shingles) [...] Area Calculated 1.66 m2 :23 Comments: visual rkhxgi-LR-01/40, OS-20/40, B/L-20/40 Temperature 98.1 f Comments: Method: [...] Comments: PATIENT NOT FASTINGPERFORMED BY: L[facility] [id number] [facility] [id number] Bacteria Few (Normal) Epithelial Cells (non renal) None seen {/hpf} (Normal) Range: 0 - 10 RBC None seen {/hpf} (Normal) Range: 0 - 2 WBC 0-5 {/hpf} (Normal) Range: 0 - 5 34-Tzw-649586:13 URINALYSIS, W/ MICRO (76159) Comments: PATIENT NOT FASTINGPERFORMED BY: [facility]39 [facility] [id number] Microscopic Examination See below: (Normal) Comments: Microscopic was indicated and was performed. Microscopic Examination MICRON (Normal) Comments: Microscopic follows if indicated. Nitrite, Urine Negative (Normal) Urobilinogen,Semi-Qn 0.2 mg/dL (Normal) Range: 0.2-1.0 Bilirubin Negative (Normal) Occult Blood Negative (Normal) Ketones Negative (Normal) Glucose Negative (Normal) Protein Negative (Normal) WBC Esterase Negative (Normal) Appearance Clear (Normal) Urine-Color Yellow (Normal) pH 7.0 (Normal) Range: 5.0-7.5 Specific [place] 1.009 (Normal) Range: 1.005-1.030 68-Lod-375674:57 Metabolic Panel, Comprehensive Comments: PATIENT NOT FASTINGPERFORMED BY: [facility] Center[facility]gkgkh6740 [facility] [id number] (25092) ALT (SGPT) 28 [iU]/L (Normal) Range: 0-32 [...] 90 mg/dL (Normal) Range: 65-99 :57 TSH (18710) Comments: PATIENT NOT FASTINGPERFORMED BY: [facility] [id number] [place] [facility] [id number] TSH 1.450 {uIU/mL} (Normal) Range: 0.450-4.500 :57 CBC, Platelets & Auto Diff Comments: PATIENT NOT FASTINGPERFORMED BY: LabCoPascack Valley Medical CenterMuierl8212 [facility] [id number] (22655) Immature Grans (Abs) 0.0 {x10E3/uL} (Normal) Range: [...] 3.77-5.28 WBC 7.8 {x10E3/uL} (Normal) Range: 3.4-10.8 59-Lrd-050643:00 URINE CELINE CULTURE-IDENTIFICATN Comments: PATIENT NOT FASTINGPERFORMED BY: LATA [facility] Hvthpo4[address] [place] [id number] Information: SRC:UC (13805) Result 1 MUG (Normal) Comments: Mixed urogenital flora10,000-25,000 colony forming units per mL Urine Final report (Normal) Culture,Comprehensive 61-Odd-327490:21 Urinalysis, Office (79077) UA - LEUKOCYTE ESTERASE Negative (Normal) UA - NITRITE Negative (Normal) URINE UROBILINGN JOSÉ MIGUEL TIMED Normal mg/dL (Normal) UA - PROTEIN Negative mg/dL (Normal) UA - PH 7 (Normal) UA - BLOOD Negative (Normal) UA - SPECIFIC GRAVITY 1.010 (Normal) UA - KETONES Moderate mg/dL (Normal) UA - BILIRUBIN Negative (Normal) UA - GLUCOSE Negative (Normal) 69-Llh-20240:30 Culture, Urine Comments: [facility] Skuhrmlhaw[address] [facility] [address] [place], [place], [id number] CUUR See Note (Normal) Comments: Urine CultureORGANISM 1: Mixed Gram Positive OrganismsColony Count 11,000-25,000MIX CULTURE Mixed contaminants. Submit a new specimen if indicated. :30 Urinalysis, Complete Comments: How was Urine Obtained? CLEAN [facility] Keujfmyytk45[address] [facility] [address] [place], [place], [id number] MUCUS, URINE 0 SEEN {/hpf} (Normal) BACTERIA [...] (Normal) CLARITY Clear (Normal) COLOR Yellow (Normal) 52-Pwk-656281:39 Culture, Urine Comments: [facility] Mstdwuyeqs[address] [place], [place], [address] CUUR See Note (Normal) Comments: Urine CultureBelow infection level. ORGANISM 1: Mixed Gram Positive OrganismsColony Count 1000-10,000 34-Qkz-915494:39 Urinalysis, Complete Comments: How was Urine Obtained? CASTING TESTER TO SPECIFYOhiohealth Berger Hospital Mnqtrcplnt[address] [place], [place], [phone] MUCUS, URINE 0 SEEN {/hpf} (Normal) BACTERIA [...] (Normal) CLARITY Clear (Normal) COLOR Yellow (Normal) 71-Abm-02232:05 OMCEM-VSENEYXAKRO-PLATG (38065) Comments: PATIENT WAS FASTINGPERFORMED BY: LabCoPascack Valley Medical CenterSatoeh3576 [facility] [id number] AFP, Serum, Tumor Marker 3.0 ng/mL (Normal) Range: 0.0-8.3 Comments: [place] ECLIA methodology :05 TSH (THYROID STIMULATING Comments: PATIENT WAS FASTINGPERFORMED BY: [facility]6370 [facility] [id number] HORMONE) (00268) TSH 2.890 {uIU/mL} (Normal) Range: 0.450-4.500 :05 LIPID PANEL (69836) Comments: PATIENT WAS FASTINGPERFORMED BY: [facility]6370 [facility] [id number] LDL/HDL Ratio 1.9 {ratio_units} (Normal) Range: 0.0-3.2 [...] Auto Diff Comments: PATIENT WAS FASTINGPERFORMED BY: [place] 0420070 [facility] [id number] (25355) Immature Grans (Abs) 0.0 {x10E3/uL} (Normal) Range: [...] 3.77-5.28 WBC 6.4 {x10E3/uL} (Normal) Range: 3.4-10.8 21-Srp-51944:05 Metabolic Panel, Comprehensive Comments: PATIENT WAS FASTINGPERFORMED BY: LabCoPasc[facility] Medical CenterHnrkck6982 [facility] [id number] (72136) ALT (SGPT) 31 [iU]/L (Normal) Range: 0-32 [...] mg/dL (Normal) Range: 65-99 :49 Rapid Flu (92584 x 2) Influenza A Ag Negative (Normal) :59 THROAT CULTURE (18029) Comments: PATIENT NOT FASTINGPERFORMED BY: [facility] [id number] Information: SRC:TH Result 1 RRF (Normal) Comments: Routine respiratory graeme Upper Respiratory Culture Final report (Normal) :54 Rapid Strep Test, Office (35529) Rapid Strep Test, Office Negative (Normal) :47 HgA1C , Office (05922) HgA1C , Office 5.8 % (Normal) Range: 4.6 - 7.1 :53 HEPATITIS PANEL (46517) Comments: today; PATIENT NOT FASTINGPERFORMED BY: R[employer]R Sy-Tec70 Rocha [facility] [id number] Hep C Virus Ab <0.1 {s/co_ratio} (Normal) Range: 0.0-0.9 Comments: Negative: < 0.8 Indeterminate: 0.8 - 0.9 Positive: > 0.9 . The CDC recommends that a positive HCV antibody result be followed up with a HCV Nucleic Acid Amplification test (561842). Hep B Core Ab, IgM Negative (Normal) HBsAg Screen Negative (Normal) Hep A Ab, IgM Negative (Normal) :53 HEPATIC FUNCTION PANEL Comments: today; PATIENT NOT FASTINGPERFORMED BY: [facility]Harry [facility]. [facility] [id number] (67500) ALT (SGPT) 29 [iU]/L (Normal) Range: 0-32 AST (SGOT) 30 [iU]/L (Normal) Range: 0-40 Alkaline Phosphatase, S 53 [iU]/L (Normal) Range: 39-117 Bilirubin, Direct 0.18 mg/dL (Normal) Range: 0.00-0.40 Bilirubin, Total 0.5 mg/dL (Normal) Range: 0.0-1.2 Albumin, Serum 4.7 g/dL (Normal) Range: 3.5-4.7 Protein, Total, Serum 6.5 g/dL (Normal) Range: 6.0-8.5 1-Kwi-979284:53 WNULI-PEGABHZWNIV-JCDNZ (82030) Comments: today; PATIENT NOT FASTINGPERFORMED BY: LabCoPasc[facility] Medical CenterVfyjgz8663 [facility] [id number] AFP, Serum, Tumor Marker 3.0 ng/mL (Normal) Range: 0.0-8.3 Comments: Kristi ECLIA methodology 74-Ehv-476253:55 Basic Metabolic Profile (BMP) Comments: Order Date: 03/01/17Order Info: 0667-1 - *BMPOrder Info: 3026-2 - *T4 (Total)Comments: Reason:Order Info: 3016-3 - *TSHComments: Reason:[facility] [address] [place], [address] ; cardio GAP 6 (Normal) Range: 5-15 [...] 7-18 GLU 96 mg/dL (Normal) Range: 70-110 73-Hjt-682208:55 CBC-Complete Blood Cnt No Diff Comments: Order Date: 03/01/17Order Info: 15632-6 - *CBC without DiffComments: Reason:[facility] [address]fjco[address]itxv[address] [place], [phone] MPV 9.6 fL (Normal) Range: 6.2-12.0 PLT [...] *T4 (Total)Comments: Reason:Order Info: 3016-3 - *TSHComments: Reason:[facility] Vqvapofsok[address] [place], [address] T4 THYROXIN 9.3 ug/dL (Normal) Range: 4.8-13.9 84-Jzl-598633:55 Thyroid Stim Hormone (TSH) Comments: Order Date: 03/01/17Order Info: 0667-1 - *BMPOrder Info: 3026-2 - *T4 (Total)Comments: Reason:Order Info: 3016-3 - *TSHComments: Reason:[facility] [address]vuoafpfk[address] [place], [id number](066 TSH 1.33 {uIU/mL} (Normal) Range: 0.358-3.74 9-Rum-249145:55 Urinalysis, Office (10329) UA - LEUKOCYTE ESTERASE Negative (Normal) UA - NITRITE Negative (Normal) URINE UROBILINGN JOSÉ MIGUEL TIMED Normal mg/dL (Normal) UA - PROTEIN Negative mg/dL (Normal) UA - PH 7.5 (Normal) UA - BLOOD Negative (Normal) UA - SPECIFIC GRAVITY 1.020 (Normal) UA - KETONES Negative mg/dL (Normal) UA - BILIRUBIN Negative (Normal) UA - GLUCOSE Negative (Normal) 4-Ulb-954398:17 URINE CELINE CULTURE-JOSÉ MIGUEL COL Comments: PATIENT NOT FASTINGPERFORMED BY: Easiaid [employer] [facility] [id number] Information: SRC:UC COUNT (77139) Result 1 MUG (Normal) Comments: Mixed urogenital flora25,000-50,000 colony forming units per mL Urine Final report (Normal) Culture,Comprehensive 4-Bqf-091026:05 Urinalysis, Office (48604) UA - LEUKOCYTE ESTERASE Small (Normal) UA - NITRITE Negative (Normal) URINE UROBILINGN JOSÉ MIGUEL TIMED Normal mg/dL (Normal) UA - PROTEIN Negative mg/dL (Normal) UA - PH 7 (Normal) UA - BLOOD Negative (Normal) UA - SPECIFIC GRAVITY 1.015 (Normal) UA - KETONES Small mg/dL (Normal) UA - BILIRUBIN Small (Normal) UA - GLUCOSE Negative (Normal) 07-Nov-20160:00 Culture, Urine Comments: [facility] Swgslpbwny[address] [place], [address] CUUR See Note (Normal) Comments: Urine CultureCulture exhibits no growth. :45 TSH (73619) Comments: PATIENT WAS FASTINGPERFORMED BY: Easiaid Qludzn2869 [facility] [id number] TSH 2.950 {uIU/mL} (Normal) Range: 0.450-4.500 :45 Lipid Panel (11194) Comments: PATIENT WAS FASTINGPERFORMED BY: EasiaidPascack Valley Medical CenterNhhpgp9292 [facility] [id number]; OV 08/23 LDL/HDL Ratio 2.2 {ratio_units} (Normal) [...] Cholesterol, Total 231 mg/dL (Abnormal) Range: 100-199 04-Ewu-11329:45 CBC, Platelets & Auto Diff Comments: PATIENT WAS FASTINGPERFORMED BY: LabCoPascack Valley Medical CenterOchsda9890 [facility] [id number] (97152) Immature Grans (Abs) 0.0 {x10E3/uL} (Normal) Range: [...] Panel, Comprehensive Comments: PATIENT WAS FASTINGPERFORMED BY: Easiaid Mwdcqh4922 [facility] [id number] (77105) ALT (SGPT) 30 [iU]/L (Normal) Range: 0-32 [...] Glucose, Serum 99 mg/dL (Normal) Range: 65-99 2-Jxr-744078:00 MICROALBUMIN: CREATININE RATIO Comments: PATIENT WAS FASTINGPERFORMED BY: EasiaidCrownpoint Healthcare FacilityXdciln4081 [facility] [id number] (77636) AND (53415) Microalb/Creat Ratio 9.2 {mg/g_creat} (Normal) Range: 0.0-30.0 Microalbumin, Urine 28.4 ug/mL (Normal) Creatinine, Urine 307.2 mg/dL (Normal) :00 METABOLIC PANEL, COMPREHENSIVE Comments: PATIENT WAS FASTINGPERFORMED BY: Easiaid Ngnmgr5769 [facility] [id number] (86044) ALT (SGPT) 23 [iU]/L (Normal) Range: 0-32 [...] mg/dL (Normal) Range: 65-99 :00 LIPID PANEL (91389) Comments: PATIENT WAS FASTINGPERFORMED BY: EasiaidCrownpoint Healthcare FacilityXmrumc3645 [facility] [id number]; fu 6-13 with [facility] LDL/HDL Ratio 1.9 {ratio_units} (Normal) Range: [...] Cholesterol, Total 211 mg/dL (Abnormal) Range: 100-199 9-Hke-775574:00 CBC with auto diff Comments: PATIENT WAS FASTINGPERFORMED BY: LabCoPascack Valley Medical CenterWbwpix1093 [facility] [id number] Information: [id number] (33988) Immature Grans (Abs) 0.0 {x10E3/uL} (Normal) Range: [...] 3.77-5.28 WBC 5.5 {x10E3/uL} (Normal) Range: 3.4-10.8 89-Jdj-119567:55 Urinalysis, Office (25541) UA - LEUKOCYTE ESTERASE Small (Normal) UA [...] Microscopic Examination Comments: PATIENT WAS FASTINGPERFORMED BY: [employer] LabCoWindwardSerghn5916 [facility] [id number] Bacteria Moderate (Abnormal) Mucus Threads Present (Normal) Epithelial Cells (non renal) >10 {/hpf} (Abnormal) Range: 0 - 10 RBC 0-2 {/hpf} (Normal) Range: 0 - 2 WBC 11-30 {/hpf} (Abnormal) Range: 0 - 5 :10 CALCIFIDIOL (73702) VIT D 25 Comments: PATIENT WAS FASTINGPERFORMED BY: Plan[employer] [facility] Wcqwjl3807 [facility] [id number] Vitamin D, 25-Hydroxy 30.0 ng/mL (Normal) Range: 30.0-100.0 Comments: Vitamin D deficiency has been defined by the [place] ofMedicine and an Endocrine Society practice guideline as alevel of serum 25-OH vitamin D less than 20 ng/mL (1,2).The Endocrine Society went on to further define vitamin Dinsufficiency as a level between 21 and 29 ng/mL (2).1. IOM ([place] of Medicine). 2010. Dietary reference intakes for calcium and D. [place]: The National Academies Press.2. Barb MF, Malachi NC, Bj LEAL, et al. Evaluation, treatment, and prevention of vitamin D deficiency: an Endocrine Society clinical practice guideline. JCEM. 2011 Apr; 96(7):1911-30. :10 URINALYSIS, W/ MICRO (28510) Comments: PATIENT WAS FASTINGPERFORMED BY: [facility]6370 [facility] [id number] Microscopic Examination See below: (Normal) Comments: Microscopic was indicated and was performed. Nitrite, Urine Negative (Normal) Urobilinogen,Semi-Qn 0.2 mg/dL (Normal) Range: 0.2-1.0 Bilirubin Negative (Normal) Occult Blood Negative (Normal) Ketones Negative (Normal) Glucose Negative (Normal) Protein 1+ (Abnormal) WBC Esterase 3+ (Abnormal) Appearance Cloudy (Abnormal) Urine-Color Yellow (Normal) pH 7.5 (Normal) Range: 5.0-7.5 Specific [place] 1.023 (Normal) Range: 1.005-1.030 :10 METABOLIC PANEL, COMPREHENSIVE Comments: PATIENT WAS FASTINGPERFORMED BY: [facility]6370 [facility] [id number] (35881) ALT (SGPT) 26 [iU]/L (Normal) Range: 0-32 [...] mg/dL (Normal) Range: 65-99 :10 LIPID PANEL (63814) Comments: PATIENT WAS FASTINGPERFORMED BY: EasiaidPascack Valley Medical CenterOgdvnn9905 [facility] [id number] LDL/HDL Ratio 1.9 {ratio_units} (Normal) Range: 0.0-3.2 [...] auto diff Comments: PATIENT WAS FASTINGPERFORMED BY: EasiaidPascack Valley Medical CenterNabmtt6666 [facility] [id number] Information: [id number]; apt. 09-[birth year] (70798) Immature Grans (Abs) 0.0 {x10E3/uL} (Normal) Range: [...] With Differential/Platelet Comments: PATIENT WAS FASTINGPERFORMED BY: LabCoPascack Valley Medical CenterNxncwa5704 [facility] [id number] Information: [id number] Immature Grans (Abs) 0.0 {x10E3/uL} (Normal) Range: [...] Panel (14) Comments: PATIENT WAS FASTINGPERFORMED BY: LabCoPascack Valley Medical CenterPuflpk4150 [facility] [id number] ALT (SGPT) 24 [iU]/L (Normal) Range: 0-32 [...] With LDL/HDL Comments: PATIENT WAS FASTINGPERFORMED BY: BG NetworkingSaint Luke'S North Hospital–SmithvilleTyopsm1039 [facility] [id number] Ratio LDL/HDL Ratio 2.1 {ratio_units} (Normal) Range: [...] [place] Comments: PATIENT WAS FASTINGPERFORMED BY: BG NetworkingBeaumont Hospital6370 [facility] [id number]; has fu 03-17-15 will review with her then Microalb/Creat Ratio 9.1 {mg/g_creat} Range: 0.0-30.0 (Normal) Microalbumin, Urine 25.2 ug/mL (Abnormal) Range: 0.0-17.0 Creatinine, Urine 278.2 mg/dL (Abnormal) Range: 15.0-278.0 Vitamin D, 25-Hydroxy 31.1 ng/mL (Normal) Comments: PATIENT WAS FASTINGPERFORMED BY: [facility]6370 [facility] [id number] :27 Range: 30.0-100.0 Comments: Vitamin D deficiency has been defined by the [place] ofMedicine and an Endocrine Society practice guideline as alevel of serum 25-OH vitamin D less than 20 ng/mL (1,2).The Endocrine Society went on to further define vitamin Dinsufficiency as a level between 21 and 29 ng/mL (2).1. IOM ([place] of Medicine). 2010. Dietary reference intakes for calcium and D. [place]: The National Academies Press.2. Barb MF, Malachi BEYER, Bj LEAL, et al. Evaluation, treatment, and prevention of vitamin D deficiency: an Endocrine Society clinical practice guideline. JCEM. 2010; 96(7):1911-30. :35 Microscopic Examination Comments: PATIENT WAS FASTINGPERFORMED BY: LabCo Poehcv2148 [facility] [id number] Bacteria None seen (Normal) Mucus Threads Present (Normal) Crystal Type Calcium Oxalate (Normal) Crystals Present (Abnormal) Epithelial Cells (non renal) 0-10 {/hpf} (Normal) Range: 0 - 10 RBC 0-2 {/hpf} (Normal) Range: 0 - 2 WBC 0-5 {/hpf} (Normal) Range: 0 - 5 :06 Rapid Strep Test, Office (82402) Rapid Strep Test, Office Negative (Normal) :03 Rapid Flu (01364 x 2) Influenza A Ag neg (Normal) :35 URINALYSIS, W/ MICRO (56489) Comments: 09-14; PATIENT WAS FASTINGPERFORMED BY: [facility] Ltdeob0936 [facility] [id number] Microscopic Examination See below: (Normal) Comments: Microscopic was indicated and was performed. Nitrite, Urine Negative (Normal) Urobilinogen,Semi-Qn 1.0 mg/dL (Normal) Range: 0.0-1.9 Bilirubin Negative (Normal) Occult Blood Negative (Normal) Ketones Trace (Abnormal) Glucose Negative (Normal) Protein 1+ (Abnormal) WBC Esterase Trace (Abnormal) Appearance Clear (Normal) Urine-Color Yellow (Normal) pH 6.5 (Normal) Range: 5.0-7.5 Specific [place] 1.029 (Normal) Range: 1.005-1.030 :35 CBC, Platelets & Auto Diff Comments: 09-14; PATIENT WAS FASTINGPERFORMED BY: LATA Storitz70 [employer]atic [facility] [id number] Information: [id number] (58927) Immature Grans (Abs) 0.2 {x10E3/uL} Range: 0.0-0.1 [...] Comments: 09-14; PATIENT WAS FASTINGPERFORMED BY: LATA Storitz70 [facility] [id number] (13884) ALT (SGPT) 16 [iU]/L (Normal) Range: 0-32 [...] mg/dL (Normal) Range: 65-99 08-Sep-20149:35 Lipid Panel (96923) Comments: 12-14; PATIENT WAS FASTINGPERFORMED BY: LATA [facility] Iddiod1336 [facility] [id number] LDL/HDL Ratio 1.7 {ratio_units} (Normal) Range: 0.0-3.2 [...] Cholesterol, Total 215 mg/dL (Abnormal) Range: 100-199 74-Fkz-139799:12 Metabolic Panel, Basic Comments: today; PATIENT NOT FASTINGPERFORMED BY: R[employer]R Sy-Tec70 [facility] [id number] Information: [id number],NURSE DRAW (79047) Calcium, Serum 10.6 mg/dL (Abnormal) Range: 8.6-10.2 [...] Comments: 4 months; PATIENT WAS FASTINGPERFORMED BY: [employer]6370 [facility] [id number] Information: [id number] COMPREHENSIVE (89793) ALT (SGPT) 24 [iU]/L (Normal) Range: 0-32 [...] mg/dL (Normal) Range: 65-99 06-Jan-20148:06 LIPID PANEL (12049) Comments: 4 months; PATIENT WAS FASTINGPERFORMED BY: R[employer]R Sy-Tec70 [facility] [id number] LDL/HDL Ratio 2.0 {ratio_units} (Normal) Range: 0.0-3.2 LDL Cholesterol Calc 145 mg/dL (Abnormal) Range: 0-99 VLDL Cholesterol Thanh 22 mg/dL (Normal) Range: 5-40 HDL Cholesterol 71 mg/dL (Normal) Comments: According to ATP-III Guidelines, HDL-C >59 mg/dL is considered anegative risk factor for CHD. Triglycerides 111 mg/dL (Normal) Range: 0-149 Cholesterol, Total 238 mg/dL (Abnormal) Range: 100-199 7-Lwa-094404:03 Potassium Serum (80217) Comments: today; PATIENT NOT FASTINGPERFORMED BY: R[employer]R Sy-Tec70 [facility] [id number] Information: [id number] Potassium, Serum 3.7 mmol/L (Normal) Range: 3.5-5.2 08-Zex-689914:41 MICROALBUMIN: CREATININE Comments: PATIENT NOT FASTINGPERFORMED BY: BG NetworkingBeaumont Hospital6370 [facility] [id number] Information: [id number] RATIO (12344) AND (38557) Microalb/Creat Ratio 6.9 {mg/g_creat} (Normal) Range: 0.0-30.0 Microalbumin, Urine 19.6 ug/mL (Abnormal) Range: 0.0-17.0 Creatinine, Urine 282.6 mg/dL (Abnormal) Range: 15.0-278.0 06-Tzr-09988:57 METABOLIC PANEL, COMPREHENSIVE Comments: PATIENT WAS FASTINGPERFORMED BY: BG NetworkingBeaumont Hospital6370 [facility] [id number] (63917) ALT (SGPT) 26 [iU]/L (Normal) Range: 0-32 [...] mg/dL (Normal) Range: 65-99 :57 LIPID PANEL (88016) Comments: PATIENT WAS FASTINGPERFORMED BY: EasiaidPascack Valley Medical CenterTierjq6929 [facility] [id number] LDL/HDL Ratio 1.7 {ratio_units} (Normal) Range: 0.0-3.2 [...] MANUAL DIFF Comments: PATIENT WAS FASTINGPERFORMED BY: EasiaidPascack Valley Medical CenterAaionv7114 [facility] [id number] Information: [id number] (54750) Immature Grans (Abs) 0.0 {x10E3/uL} (Normal) Range: [...] CREATININE RATIO Comments: PATIENT WAS FASTINGPERFORMED BY: [employer] - is now ClipCardPascack Valley Medical CenterVqqxsi9897 [facility] [id number] (26017) AND (51384) Microalb/Creat Ratio 4.0 {mg/g_creat} (Normal) Range: 0.0-30.0 Microalbumin, Urine 8.3 ug/mL (Normal) Range: 0.0-17.0 Creatinine, Urine 206.4 mg/dL (Normal) Range: 15.0-278.0 :29 METABOLIC PANEL, COMPREHENSIVE Comments: PATIENT WAS FASTINGPERFORMED BY: [employer] - is now ClipCardPascack Valley Medical CenterXmsfrh5066 [facility] [id number] (10437) ALT (SGPT) 22 [iU]/L (Normal) Range: 0-32 [...] mg/dL (Normal) Range: 65-99 :29 LIPID PANEL (62371) Comments: PATIENT WAS FASTINGPERFORMED BY: R[employer]R Sy-Tec70 Rocha [facility] [id number] LDL/HDL Ratio 1.9 {ratio_units} (Normal) Range: 0.0-3.2 [...] MANUAL DIFF Comments: PATIENT WAS FASTINGPERFORMED BY: [employer]6370 [facility] [id number] Information: [id number] (71960) Immature Grans (Abs) 0.0 {x10E3/uL} (Normal) Range: [...] Ambiguous Default Comments: PATIENT WAS FASTINGPERFORMED BY: LabCoPascack Valley Medical CenterHycejo5362 [facility] [id number] Immature Grans (Abs) 0.0 {x10E3/uL} (Normal) Range: [...] PANEL, COMPREHENSIVE Comments: PATIENT WAS FASTINGPERFORMED BY: LabCoPascack Valley Medical CenterNcgbij4020 [facility] [id number] (13895) ALT (SGPT) 22 [iU]/L (Normal) Range: 0-32 [...] mg/dL (Normal) Range: 65-99 :06 LIPID PANEL (15697) Comments: PATIENT WAS FASTINGPERFORMED BY: [facility]Research [facility] Kwrjqv3264 [facility] [id number] LDL/HDL Ratio 1.2 {ratio_units} (Normal) Range: 0.0-3.2 LDL Cholesterol Calc 95 mg/dL (Normal) Range: 0-99 VLDL Cholesterol Thanh 13 mg/dL (Normal) Range: 5-40 HDL Cholesterol 80 mg/dL (Normal) Comments: According to ATP-III Guidelines, HDL-C >59 mg/dL is considered anegative risk factor for CHD. Triglycerides 64 mg/dL (Normal) Range: 0-149 Cholesterol, Total 188 mg/dL (Normal) Range: 100-199 :59 Urinalysis, Office (58677) UA - BILIRUBIN Negative (Normal) UA - [...] Kumar M.D.March 29, 2012 at 8:59:04 AM [id number] Signed GP/GP If you are the referring [...] on 03/29/12904 Sign by: Rogelio Kumar MD 48-Ygb-98475:00 BILAT SCRN DIGITAL & CAD Radiology Report [...] Kumar M.D.March 28, 2012 at 9:07:04 AM [phone] Signed GP/GP If you are the referring physician and would like to consult with theradiologist who provided this interpretation, please contact iMracle [place] at . If this radiologist is unavailable,youwill be directed to another radiologist to assist. If you are a patient with a question regarding this report, pleasecontactyour referring physician directly. Professional Interpretation Provided By: [facility], Phone , Dictated on 03/28/12 084 7 by Jake ALEXANDRE,EjriVamsiranscribed on 03/28/12 1125 by ITS IMPORTSign by Jake ALEXANDRE,Rogelio on 03/28/12 1126 Sign by: Rogelio Kumar MD 03-Qht-06182:17 LIPID PANEL (75903) Comments: PATIENT NOT FASTINGPERFORMED BY: [employer] - is now [employer] Al[employer] [facility] [id number] LDL Cholesterol Calc 93 mg/dL (Normal) Range: 0-99 LDL/HDL Ratio 1.3 {ratio_units} (Normal) Range: 0.0-3.2 VLDL Cholesterol Thanh 22 mg/dL (Normal) Range: 5-40 HDL Cholesterol 73 mg/dL (Normal) Comments: According to ATP-III Guidelines, HDL-C >59 mg/dL is considered anegative risk factor for CHD. Triglycerides 112 mg/dL (Normal) Range: 0-149 Cholesterol, Total 188 mg/dL (Normal) Range: 100-199 70-Cde-40482:17 HEPATIC FUNCTION PANEL Comments: PATIENT NOT FASTINGPERFORMED BY: [employer] [facility] [id number] Information: ADD DRAW FEE [id number] ADD J0 3419 (17025) ALT (SGPT) 28 [iU]/L (Normal) Range: 0-40 AST (SGOT) 29 [iU]/L (Normal) Range: 0-40 Alkaline Phosphatase, S 54 [iU]/L (Normal) Range: 25-165 Bilirubin, Direct 0.20 mg/dL (Normal) Range: 0.00-0.40 Bilirubin, Total 0.7 mg/dL (Normal) Range: 0.0-1.2 Albumin, Serum 4.6 g/dL (Normal) Range: 3.5-4.8 Protein, Total, Serum 6.5 g/dL (Normal) Range: 6.0-8.5 :30 CBC WITH MANUAL DIFF Comments: PATIENT WAS FASTINGPERFORMED BY: [employer] - is now [employer] Gupidu0720 [facility] [id number] Information: [id number] (64401) Immature Grans (Abs) 0.0 {x10E3/uL} (Normal) Range: [...] 3.80-5.10 WBC 4.8 {x10E3/uL} (Normal) Range: 4.0-10.5 72-Qnw-79835:30 LIPID PANEL (83877) Comments: PATIENT WAS FASTINGPERFORMED BY: LabCoPascack Valley Medical CenterBohxrh6603 [facility] [id number]; OV 02/28/12 LDL/HDL Ratio 2.1 {ratio_units} (Normal) [...] PANEL, COMPREHENSIVE Comments: PATIENT WAS FASTINGPERFORMED BY: Clean Wave TechnologiesMeadowview Regional [facility] Center [id number] (33766) ALT (SGPT) 19 [iU]/L (Normal) Range: 0-40 [...] Glucose, Serum 98 mg/dL (Normal) Range: 65-99 32-Uca-89828:30 MICROALBUMIN: CREATININE RATIO Comments: PATIENT WAS FASTINGPERFORMED BY: [employer] Sy-Tec70 [facility] [id number] (05687) AND (96087) Microalb/Creat Ratio 5.5 {mg/g_creat} (Normal) Range: 0.0-30.0 [...] regarding this repo rt, please call our 66U8bzgcvqf line @ Dictated on 01/24/12 0917 by [...] regarding this report, ple ase call our 81K0vdmaypm line @ Dictated on 01/03/12 1257 by Rakesh Benavidez MDTranscribed on 01/04/12 1540 by ITS IMPORTSign by Rakesh Benavidez MD on 01/04/12 1540 Sign by: Rakesh Benavidez MD 21-Tsc-77762:30 MYOCARD PERF STRESS/REST MULT Radiology Report See Note (Normal) Comments: EXERCISE STRESS TEST HISTORYA 75-year-old lady with history of abnormal EKG. WYEQQURQC39.0 mCi of Sestamibi was injected at rest. [...] on 07/01/11 0530 by Esmer CEDILLO by Joes Allen MD on 07/10/11 1645 Sign by: ___ Jose Allen MD 28-Hbc-634738:03 Creatinine Clearance Comments: PERFORMED BY: HealOr6370 [facility] [id number] Information: 06/26/11@7AM 06/27/11@7AM Creatinine Clearance 68 mL/min [...] Creatinine, Serum 0.94 mg/dL (Normal) Range: 0.57-1.00 90-Qtv-342870:03 Protein Total, Qn, 24-Hr Comments: PERFORMED BY: HealOr6370 [facility] [id number] Urine Prot,24hr calculated <31.5 {mg/24_hr} (Normal) Range: 30.0-150.0 Protein,Total,Urine <1.5 mg/dL (Normal) Range: 0.0-15.0 Comments: Verified by repeat analysis :21 LIPID PANEL (66227) Comments: in three months (approximately); PATIENT WAS FASTINGPERFORMED BY: HealOr6370 [facility] [id number] Information: [id number] LDL/HDL Ratio 2.1 {ratio_units} (Normal) Range: 0.0-3.2 [...] Microscopic Examination Comments: PATIENT WAS FASTINGPERFORMED BY: BG NetworkingCoPascack Valley Medical CenterNbggbn1327 [facility] [id number] Bacteria Few (Normal) Mucus Threads Present (Normal) Crystal Type Amorphous Sediment (Normal) Crystals Present (Abnormal) Cast Type Hyaline casts (Normal) Casts Present {/lpf} (Abnormal) Epithelial Cells (non renal) 0-10 {/hpf} (Normal) Range: 0 - 10 RBC 4-10 {/hpf} (Abnormal) Range: 0 - 3 WBC 0-5 {/hpf} (Normal) Range: 0 - 5 CBC WITH MANUAL DIFF (36936) Comments: PATIENT WAS FASTINGPERFORMED BY: LabKutendaPascack Valley Medical CenterKptfcf0805 [facility] [id number] Immature Grans (Abs) 0.0 {x10E3/uL} (Normal) Range: [...] {x10E3/uL} (Normal) Range: 4.0-10.5 :23 LIPID PANEL (10647) Comments: PATIENT WAS FASTINGPERFORMED BY: EasiaidPascack Valley Medical CenterEmayor1590 [facility] [id number] LDL/HDL Ratio 2.0 {ratio_units} (Normal) Range: 0.0-3.2 [...] PANEL, COMPREHENSIVE Comments: PATIENT WAS FASTINGPERFORMED BY: EasiaidPascack Valley Medical CenterZjtwjp9586 [facility] [id number] (73887) ALT (SGPT) 32 [iU]/L (Normal) Range: 0-40 [...] Glucose, Serum 93 mg/dL (Normal) Range: 65-99 56-Eda-91707:23 URINALYSIS, W/ MICRO (93966) Comments: PATIENT WAS FASTINGPERFORMED BY: LabCoPascack Valley Medical CenterLtstil5421 [facility] [id number]; appt 06/23/11 Microscopic Examination See below: (Normal) Nitrite, Urine Negative (Normal) Urobilinogen,Semi-Qn 0.2 mg/dL (Normal) Range: 0.0-1.9 Bilirubin Negative (Normal) Occult Blood Negative (Normal) Ketones Negative (Normal) Glucose Negative (Normal) Protein 1+ (Abnormal) WBC Esterase Negative (Normal) Appearance Cloudy (Abnormal) Urine-Color Yellow (Normal) pH 6.5 (Normal) Range: 5.0-7.5 Specific [place] 1.028 (Normal) Range: 1.005-1.030 43-Tni-151533:23 BILAT SCRN DIGITAL & CAD Radiology Report [...] on 01/25/112349 by ITS IMPORTSign by ELVIS MSITH MD on 01/25/111 Sign by: ELVIS SMITH MD 03-Fwa-090272:01 Urinalysis, Office (60549) UA - BILIRUBIN Negative (Normal) UA - [...] Microscopic Examination Comments: PATIENT WAS FASTINGPERFORMED BY: [employer]70 [facility] [id number] Bacteria Few (Normal) Mucus Threads Present (Normal) Epithelial Cells (non renal) 0-10 {/hpf} (Normal) Range: 0 - 10 RBC 0-3 {/hpf} (Normal) Range: 0 - 3 WBC 0-5 {/hpf} (Normal) Range: 0 - 5 :28 LIPID PANEL (76939) Comments: PATIENT WAS FASTINGPERFORMED BY: [employer]70 [facility]MagSelect [facility] [id number] LDL/HDL Ratio 1.4 {ratio_units} (Normal) Range: 0.0-3.2 HDL Cholesterol 76 mg/dL (Normal) Comments: According to ATP-III Guidelines, HDL-C >59 mg/dL is considered anegative risk factor for CHD. LDL Cholesterol Calc 110 mg/dL (Abnormal) Range: 0-99 VLDL Cholesterol Thanh 23 mg/dL (Normal) Range: 5-40 Cholesterol, Total 209 mg/dL (Abnormal) Range: 100-199 Triglycerides 117 mg/dL (Normal) Range: 0-149 :28 URINALYSIS, W/ MICRO (70498) Comments: PATIENT WAS FASTINGPERFORMED BY: [employer] - is now ClipCardPascack Valley Medical CenterYajysx4537 [facility] [id number] Microscopic Examination See below: (Normal) Bilirubin Negative (Normal) Nitrite, Urine Negative (Normal) Occult Blood Negative (Normal) Urobilinogen,Semi-Qn 0.2 mg/dL (Normal) Range: 0.0-1.9 Appearance Clear (Normal) Glucose Negative (Normal) Ketones Negative (Normal) Protein 1+ (Abnormal) WBC Esterase Negative (Normal) pH 6.0 (Normal) Range: 5.0-7.5 Specific [place] 1.031 (Abnormal) Range: 1.005-1.030 Urine-Color Yellow (Normal) :28 METABOLIC PANEL, COMPREHENSIVE Comments: PATIENT WAS FASTINGPERFORMED BY: [employer] - is now ClipCardPascack Valley Medical CenterKqcqmk2514 [facility] [id number] (24194) Alkaline Phosphatase, S 47 [iU]/L (Normal) Range: [...] Glucose, Serum 98 mg/dL (Normal) Range: 65-99 35-Qno-60823:28 CBC WITH MANUAL DIFF Comments: PATIENT WAS FASTINGPERFORMED BY: LabCoPascack Valley Medical CenterMylobr8663 [facility] [id number] Information: [id number] (46472) Immature Grans (Abs) 0.0 {x10E3/uL} (Normal) Range: [...] on 09/06/10 0749 Sign by: Pao Cristobal 06-His-956521:35 N-Telopeptide, Urine Comments: PERFORMED BY: ESTELLA [facility] [address] [id number] BY: LATA [facility] Qutipb4025 [facility] [id number] Information: 06/23@7AM 06/24@7AM Interpretive Guide: SPRCS (Normal) [...] 1.4 p=0.2838- 51 2.5 p=0.0351- 67 3.8 p=0.877326-630 17.3 p=0.83951. Menopausal Women Receiving Antiresorptive Therapy: Theprobability that treatment is effective after threemonths is increased when the measured NTx va lue is<or=38 nM BCE/mM GLUER AND WEDGER, or NTx has decreased >or=30% frombaseline (1)..3. [...] N-telopeptide 34 {nmol_BCE} (Normal) :11 Urinalysis, Office (05640) UA - LEUKOCYTE ESTERASE Negative (Normal) UA - NITRITE Negative (Normal) URINE UROBILINGN JOSÉ MIGUEL TIMED 2 mg/dL (Normal) UA - PROTEIN Negative mg/dL (Normal) UA - PH 6.0 (Normal) UA - BLOOD Hemolyzed Trace (Normal) UA - SPECIFIC GRAVITY 1.020 (Normal) UA - KETONES Small mg/dL (Normal) UA - BILIRUBIN Small (Normal) UA - GLUCOSE Negative (Normal) 2-Sep-90566:16 MYOCARD PERF STRESS/REST MULT Radiology Report See Note (Normal) Comments: Exam Number: [id number] MYOCARDIAL PERFUSION SCAN TECHNIQUEThe patient was injected [...] of 62%. Reported By: ROMEL SILVERIO M.D. 62-Nky-422982:11 BRAIN W/WO CONTRAST Radiology Report See Note (Normal) Comments: Exam Number: [id number] CLINICAL:73-year-old female with tremors for over one [...] ischemic changes. Reported By: ELVIS BEARD M.D. 25-Yuf-750369:39 Basic Metabolic Panel (8) Comments: A courtesy copy of this report has been sent [phone].PERFORMED BY: [facility]6370 [facility] [id number] Information: [id number] Calcium, Serum 9.7 mg/dL (Normal) Range: 8.6-10.2 [...] CREATININE RATIO Comments: PATIENT WAS FASTINGPERFORMED BY: [employer]6370 [facility] [id number] (60206) AND (35855) Microalb/Creat Ratio 4.3 {mg/g_creat} (Normal) Range: 0.0-30.0 Microalbumin, Urine 6.1 ug/mL (Normal) Range: 0.0-17.0 Creatinine, Urine 140.7 mg/dL (Normal) Range: 15.0-278.0 :15 METABOLIC PANEL, COMPREHENSIVE Comments: PATIENT WAS FASTINGPERFORMED BY: [employer]6370 [address] [facility] HospitalTapTapSelect [facility] [id number] (33074) ALT (SGPT) 30 [iU]/L (Normal) Range: 0-40 [...] mg/dL (Normal) Range: 65-99 :15 LIPID PANEL (64763) Comments: PATIENT WAS FASTINGPERFORMED BY: [employer]6370 [facility] [id number] LDL Cholesterol Calc 150 mg/dL (Abnormal) Range: [...] MANUAL DIFF Comments: PATIENT WAS FASTINGPERFORMED BY: [employer]70 [facility] [id number] Information: ADD [id number] AND DRAW FEE 99 7203 (70199) Immature Grans (Abs) 0.0 {x10E3/uL} (Normal) Range: [...] 3.80-5.10 WBC 6.0 {x10E3/uL} (Normal) Range: 4.0-10.5 60-Nml-997141:33 CELINE CULTURE-OTHER (24760) Comments: PATIENT NOT FASTINGPERFORMED BY: LabCoPascack Valley Medical CenterSorlod0240 [facility] [id number] Information: SRC:THRT [id number] Result 1 RRF (Normal) Comments: Routine respiratory graeme Upper Respiratory Culture Final report (Normal) 39-Ovl-807912:14 Rapid Strep Test, Office (02323) Rapid Strep Test, Office Negative (Normal) 56-Roz-306450:38 BRAIN/HEAD W/WO CONTRAST Radiology Report See Note (Normal) Comments: Exam Number: [id number] CT SCAN OF THE HEAD Multiple axial [...] without intravenous contrast. Reported By: ROGELIO KUMAR 13-Eme-413753:47 BILAT SCRN DIGITAL & CAD Radiology Report See Note (Normal) Comments: Exam Number: [id number] MAMMOGRAM, BILATERAL SCREENING DIGITAL AND CAD HISTORYRoutine screening. Full field digital images were obtained in mediolateral oblique andcraniocaudal projections. CAD images w ere reviewed. The current study is compared to the examinations of June and September 08, 2008 from the [facility]. There is moderately dense fibroglandular parench [...] mammograms werealso examined with computer-aided detection software ([employer] Reported By: ELVIS SMITH M.D. 45-Xsn-218541:46 DEXA BONE DENSITY STUDY (HP) Radiology Report See Note (Normal) Comments: Exam Number: [id number] DEXA AXIAL SKELETON A DEXA scan was [...] IMPRESSIONOsteopenia. Reported By: ROGELIO KUMAR :14 TSH (02216) Comments: PATIENT WAS FASTINGPERFORMED BY: LabCo Wszfjr9839 [facility] [id number] TSH 1.980 {uIU/mL} (Normal) Range: 0.450-4.500 :14 METABOLIC PANEL, COMPREHENSIVE Comments: PATIENT WAS FASTINGPERFORMED BY: [facility] Gjpqoo0516 [facility] [id number] (91796) ALT (SGPT) 17 [iU]/L (Normal) Range: 0-40 [...] mg/dL (Normal) Range: 65-99 :14 LIPID PANEL (45681) Comments: PATIENT WAS FASTINGPERFORMED BY: [employer] LabThe Ultimate [employer]70 [facility] [id number] HDL Cholesterol 84 mg/dL (Normal) Comments: According [...] MANUAL DIFF Comments: PATIENT WAS FASTINGPERFORMED BY: LabCoWindwardOzmfta6123 [facility] [id number] Information: [id number] (09239) Baso (Absolute) 0.1 {x10E3/uL} (Normal) Range: 0.0-0.2 [...] 3.80-5.10 WBC 6.3 {x10E3/uL} (Normal) Range: 4.0-10.5 87-Wlh-271913:23 Urinalysis, Office (08577) UA - BILIRUBIN Negative (Normal) UA - BLOOD Negative (Normal) UA - GLUCOSE Negative (Normal) UA - KETONES Negative mg/dL (Normal) UA - LEUKOCYTE ESTERASE Negative (Normal) UA - NITRITE Negative (Normal) UA - PH 7.0 (Normal) UA - PROTEIN Negative mg/dL (Normal) UA - SPECIFIC GRAVITY 1.010 (Normal) URINE UROBILINGN JOSÉ MIGUEL TIMED Normal mg/dL (Normal) 60-Gcg-954515:48 Hepatic Function Panel (7) Comments: PERFORMED BY: LabCoPascack Valley Medical CenterSqbonc6679 [facility] [id number] Albumin, Serum 4.4 g/dL (Normal) Range: 3.5-4.8 Alkaline Phosphatase, S 57 [iU]/L (Normal) Range: 25-165 ALT (SGPT) 25 [iU]/L (Normal) Range: 0-40 AST (SGOT) 27 [iU]/L (Normal) Range: 0-40 Bilirubin, Direct 0.14 mg/dL (Normal) Range: 0.00-0.40 Bilirubin, Total 0.4 mg/dL (Normal) Range: 0.1-1.2 Protein, Total, Serum 6.4 g/dL (Normal) Range: 6.0-8.5 :29 Urinalysis, Office (13115) UA - BILIRUBIN Negative (Normal) UA - [...] Comments: PATIENT NOT FASTINGClinical Information: SRC:UR ADD [id number] PERFORMED BY: Food.eeSelect Specialty Hospital [facility] [id number] COUNT (48306) Result 1 NG36 (Normal) Comments: No growth in 36 - 48 hours. Urine Culture,Comprehensive Final report (Normal) :50 Metabolic Panel, Basic (77159) Comments: PATIENT NOT FASTINGClinical Information: ADD DRAW FEE [id number] ADD J 94658 PERFORMED BY: Food.eeSelect [facility] [id number] BUN 16 mg/dL (Normal) Range: 5-26 BUN/Creatinine [...] mmol/L (Normal) Range: 135-145 :58 Urinalysis, Office (22021) UA - BILIRUBIN Negative (Normal) UA - BLOOD Hemolyzed Trace (Normal) UA - GLUCOSE Negative (Normal) UA - KETONES Negative mg/dL (Normal) UA - LEUKOCYTE ESTERASE Negative (Normal) UA - NITRITE Negative (Normal) UA - PH 7.0 (Normal) UA - PROTEIN Negative mg/dL (Normal) UA - SPECIFIC GRAVITY 1.010 (Normal) URINE UROBILINGN JOSÉ MIGULE TIMED 2 mg/dL (Normal) 1-Vgk-246796:23 SHOULDER,MIN 2 VIEWS Radiology Report See Note (Normal) Comments: Exam Number: [id number] SHOULDER SERIES. HISTORYA 73-year-old woman with right shoulder pain. FINDINGSRight shoulder series. Cortical outlines are intact. Bones arenormally aligned, and joint spaces ar e well maintained. Soft tissuesare unremarkable. IMPRESSIONUnremarkable right shoulder series. Reported By: DAYNA RECINOS M.D. :07 Hepatic Function Panel (7) Comments: PATIENT WAS FASTINGPERFORMED BY: Food.eeSelect [facility] [id number] Albumin, Serum 4.3 g/dL (Normal) Range: 3.5-4.8 Alkaline Phosphatase, S 63 [iU]/L (Normal) Range: 25-165 ALT (SGPT) 27 [iU]/L (Normal) Range: 0-40 AST (SGOT) 29 [iU]/L (Normal) Range: 0-40 Bilirubin, Direct 0.10 mg/dL (Normal) Range: 0.00-0.40 Bilirubin, Total 0.3 mg/dL (Normal) Range: 0.1-1.2 Protein, Total, Serum 7.0 g/dL (Normal) Range: 6.0-8.5 :38 TSH (73686) Comments: PATIENT NOT FASTINGClinical Information: ADD DRAW FEE 168803 ADD J 06327 PERFORMED BY: Food.eeSelect [facility] [id number] TSH 1.604 {uIU/mL} (Normal) Range: 0.450-4.500 :25 Metabolic Panel, Comprehensive Comments: PATIENT WAS FASTINGClinical Information: ADD 145456, [id number] PERFORMED BY: Food.eeSelect [facility] [id number] (76651) A/G Ratio 2.4 (Normal) Range: 1.1-2.5 Albumin, [...] mmol/L (Normal) Range: 135-145 :25 Lipid Panel (91351) Comments: in six months (approximately); PATIENT WAS FASTINGPERFORMED BY: [facility] Qfdbwf0372 [facility] [id number] Cholesterol, Total 256 mg/dL (Abnormal) Range: 100-199 HDL Cholesterol 73 mg/dL (Normal) Comments: According to ATP-III Guidelines, HDL-C >59 mg/dL is considered anegative risk factor for CHD. LDL Cholesterol Calc 156 mg/dL (Abnormal) Range: 0-99 LDL/HDL Ratio 2.1 {ratio_units} (Normal) Range: 0.0-3.2 Triglycerides 133 mg/dL (Normal) Range: 0-149 VLDL Cholesterol Thanh 27 mg/dL (Normal) Range: 5-40 :20 Urinalysis, Office (42533) UA - BILIRUBIN Negative (Normal) UA - [...] Report See Note (Normal) Comments: Exam Number: [id number] MYOCARDIAL PERFUSION SCAN 11.7 millicuries of Tc99m [...] By: JOSE ALLEN M.D. :55 Urinalysis, Office (44790) UA - BILIRUBIN Negative (Normal) UA - [...] EARLY ANTIGN Comments: PATIENT NOT FASTINGPERFORMED BY: LabCoPascack Valley Medical CenterLnupqm4593 [facility] [id number] (42101) EBV Ab VCA, IgG 1276 AU/mL (Abnormal) [...] Clinical Information: SRC:TH PERFORMED BY: LATA [facility] Zymkdb1066 [place] [id number] Result 1 RRF (Normal) Comments: Routine respiratory graeme Upper Respiratory Culture Final report (Normal) :48 Rapid Strep Test, Office (78361) Comments: neg Rapid Strep Test, Office Negative [...] T PROT 7.0 g/dL (Normal) Range: 6.4-8.2 44-Tns-84008:20 LIPID CHOL 238 mg/dL (Abnormal) Comments: <200 [...] mg/dL VLDL 13 mg/dL (Normal) Range: 5-40 76-Dkz-923892:41 URINE CELINE CULTURE-JOSÉ MIGUEL COL Comments: PATIENT NOT FASTINGClinical Information: SRC:UR PERFORMED BY: LabCoPascack Valley Medical CenterBhuvii5295 [facility] [id number] COUNT (42683) Result 1 NG36 (Normal) Comments: No growth in 36 - 48 hours. Urine Culture,Comprehensive Final report (Normal) 31-Lka-828103:30 Urinalysis, Office (48371) UA - LEUKOCYTE ESTERASE Trace (Normal) UA - NITRITE Negative (Normal) UA - PH 7.5 (Normal) UA - PROTEIN Negative mg/dL (Normal) URINE UROBILINGN JOSÉ MIGUEL TIMED 2 mg/dL (Normal) UA - BILIRUBIN Negative (Normal) UA - BLOOD Negative (Normal) UA - GLUCOSE Negative (Normal) UA - KETONES Negative mg/dL (Normal) UA - SPECIFIC GRAVITY 1.010 (Normal) 70-Suz-976671:09 URINE CELINE CULTURE (JOSÉ MIGUEL COL Comments: PATIENT NOT FASTINGClinical Information: SRC:UR ADD [id number] PERFORMED BY: LATA [facility] Sljdvg4[address] [place] [id number] COUNT) (64168) Antimicrobial MIHEAD (Normal) Comments: S = Susceptible; [...] mL (Normal) Urine Final report Culture,Comprehensive (Normal) 42-Pjb-751554:56 Urinalysis, Office (87666) UA - BILIRUBIN Negative (Normal) UA - BLOOD Non Hemolyzed Trace (Normal) UA - GLUCOSE Small (Normal) UA - KETONES Small mg/dL (Normal) UA - LEUKOCYTE ESTERASE Small (Normal) UA - NITRITE Positive (Normal) UA - PH 6.0 (Normal) UA - PROTEIN 300 mg/dL (Normal) UA - SPECIFIC GRAVITY 1.020 (Normal) URINE UROBILINGN JOSÉ MIGUEL TIMED 2 mg/dL (Normal) 04-Xmc-32263:12 L/S SPINE,MIN 4 VIEWS Radiology Report See Note (Normal) Comments: Exam Number: [id number] LUMBAR SPINE, FIVE VIEWS. INDICATIONLow back pain. [...] pain, right Knee pain, right : Reviewed Doctor Osteopathic Letter Indication: Knee pain, right Knee pain, [...] : Follow up in 4 months with [facility] for Gen Med Indication: Osteoporosis Osteoporosis : [...] back pain Planned Observations URINE CELINE CULTURE-IDENTIFICATN (74168)Indication: Right flank pain On: 1-Hju-136179:15 Request CALCIFIDIOL (82414) VIT D 25Indication: Osteoporosis On: 82-Dsx-124574:51 Request MICROALBUMIN: CREATININE RATIO (30822) AND (36132)Indication: Hypertension On: 50-Tiq-655952:51 Request METABOLIC PANEL, COMPREHENSIVE (00688)Indication: Hypertension On: 62-Uyp-180725:51 Request LIPID PANEL (30720)Indication: Hypertension On: 14-Xjp-698841:51 Request CBC W/AUTO DIFF WBC (30384)Indication: Hypertension On: 43-Wlz-716951:51 Request URINALYSIS, W/ MICRO (11588)Indication: Hypertension On: 23-Bhd-734317:10 Request METABOLIC PANEL, COMPREHENSIVE (88771)Indication: Hypertension On: 74-Cik-297805:10 Request LIPID PANEL (88569)Indication: Hypertension On: 29-Rtn-020935:10 Request CBC WITH MANUAL DIFF (26333)Indication: Hypertension On: 98-Vye-997677:10 Request CBC, PLATELETS & MANUAL DIFF (42100)Indication: Hypertension On: 7-Xko-973046:12 Request MICROALBUMIN: CREATININE RATIO (02160) AND (85600)Indication: Hypertension On: 08-Sxe-126653:43 Request METABOLIC PANEL, COMPREHENSIVE (39212)Indication: Hypertension On: 43-Wbj-355071:43 Request LIPID PANEL (33257)Indication: Hypertension On: 68-Vka-167032:43 Request CBC WITH MANUAL DIFF (39518)Indication: Hypertension On: 49-Aqk-028702:43 Request CREATININE CLEARANCE (59301)Indication: Proteinuria On: 37-Aqj-287048:12 Request Comments: now 24 hour urine for Protein (23031)Indication: Proteinuria On: 83-Dyw-718631:12 Request Collagen Crosslinked N-Telopeptide (12201)Indication: Osteoporosis On: 92-Bhr-94200:59 Request Comments: 24 hour urine check now and in six months (approximately) HEPATIC FUNCTION PANEL (47065)Indication: oncomycosis On: 24-Xpk-99023:03 Request Comments: monthly x 3 EB ANTIBODY VIRAL CAPSID (33140) G7Zhpicybjom: Pharyngitis, acute On: 79-Ang-767113:13 Request EB ANTIBODY NUCLR ANTIGN (80881)Indication: Pharyngitis, acute On: 03-Mee-479715:13 Request CELINE CULTURE-OTHER (91975)Indication: Pharyngitis, acute On: 25-Niy-96492:48 Request URINALYSIS W/O MICRO (43928)Indication: Hypertension On: 32-Kji-78514:16 Request METABOLIC PANEL, COMPREHENSIVE (34924)Indication: Hypertension On: :16 Request CBC WITH MANUAL DIFF (57569)Indication: Hypertension On: :16 Request Comments: in six months (approximately) LIPID PANEL (09507)Indication: Hypertension On: 73-Pmg-85807:16 Request CBC (Auto) (54586)Indication: Hypercholesterolemia On: 49-Ldd-99364:24 Request Metabolic Panel, Comprehensive (47134)Indication: Hypercholesterolemia On: :24 Request Lipid Panel (51389)Indication: Hypercholesterolemia On: 61-Ojh-57300:24 Request Comments: in six months (approximately) Metabolic Panel, Comprehensive (18406)Indication: Hypercholesterolemia On: 42-Ayo-770104:09 Request Lipid Panel (90637)Indication: Hypercholesterolemia On: 53-Txq-716318:09 Request Comments: 4m Planned Encounters Medical; 3 Month FU - On: 08-Oct-2018 13:45 [facility] Nguyen Santana CNP, CNP Mary Planned Procedures ELECTROCARDIOGRAM, COMPLETE (ECG) On: 30-Jul-2018 Intent (27171)By: Zoraida Stewart Comments: Sinus Rhythm-HR 86-occasional ectopic ventricular beat-No new changes from last EKG. SCREENING DIGITAL TOMOSYNTHESIS OF On: 11-Jun-2018 Intent BREAST (22347)By: Nguyen Santana CNP, CNP Mary DEXA SCAN AXIAL SKELETON (28562)By: On: 11-Jun-2018 Intent Nguyen Santana CNP, CNP Mary Flu Vaccine (Quadrivalent) 03157Ff: On: 11-Jun-2018 Intent Max GIVENS MaryAnselmo Santana CNP Mary Aerosol Treatment (03216)By: Terry, On: 09-Nov-2017 Intent Zoraida Comments: Better air exchange after aerosol treatment. Holter Monitor 24 hrsBy: Max GIVENS, On: 15-Sep-2017 Intent Nguyen Santana CNP Mary Spirometry (07238)By: Max GIVENS, On: 15-Sep-2017 Intent Nguyen Santana CNP Mary Comments: mod severe restriction ELECTROCARDIOGRAM, COMPLETE (ECG) On: 15-Sep-2017 Intent (70476)By: Nguyen Santana CNP Comments: sinus bradycardia Nguyen GIVENS MAGNETIC RESONANCE IMAGING OF RIGHT On: 05-Jul-2017 Intent KNEE WITHOUT CONTRAST (11226)By: Nguyen Santana CNP, CNP Mary Flu Vaccine (Quadrivalent) 80164Kj: On: 14-Jun-2017 Intent Nguyen Santana CNP, CNP Mary Comments: Lot:[id number]:03/19/18Dose:0.5mLRoute:IMSite:L DltdGiven By:asVIS signed Ultrasound - LiverBy: Nguyen Santana CNP On: 08-Mar-2017 Intent E Nguyen Santana CNP Comments: REpeat in Jun 2017 CT - Abdomen & Pelvis Stone On: 30-Nov-2016 Intent ProtocolBy: Nguyen Santana CNP, CNP, Mary E Flu Vaccine (Quadrivalent) 96450Bn: On: 23-Aug-2016 Intent Slafreida BRICK LAYERJo Flu Vaccine (Quadrivalent) 68098Wo: On: 15-Sep-2015 Intent George Bueno MD Comments: lot [id number]: 03/31/2016site/route L jean, IMamt 0.5mlVIS and ABN signed when applicableChelsea, ENVIRONMENTAL ADVISOR Kenalog Injection, 10 mgm (J3301)By: On: 20-Mar-2015 Intent eGorge Bueno MD Comments: x4 TDAP VACCINE >7 IM (47821)By: Ximena On: 17-Mar-2015 George Mayer MD MRI - Shoulder(s) - RightBy: Ximena On: 17-Mar-2015 George Mayer MD ADMINISTRATION OF INFLUENZA VIRUS On: 16-Sep-2014 Intent VACCINE (G0008)By: George Bueno MD Flu Vaccine (Quadrivalent) 31982Tb: On: 16-Sep-2014 Intent George Bueno MD ELECTROCARDIOGRAM, COMPLETE (ECG) On: 16-Sep-2014 Intent (65829)By: George Bueno MD Comments: routine for baseline see scanned document of test done to see results reviewed today with patient Aerosol Treatment (87564)By: Max On: 01-Sep-2014 Intent Nguyen GIVENS CNP, [...] BONE DENSITY, AXIAL SKELETON On: 14-Jan-2014 Intent (61499)By: George Bueno MD MAMMOGRAM, SCREENING, BOTH BREASTS On: 14-Jan-2014 Intent (97191)By: George Bueno MD Eprescribed prescriptions (G8553)By: On: 14-Jan-2014 Intent George Bueno MD FLU VAC, SPLIT, >3 YEARS, INTRAMUSC On: 06-Sep-2013 Intent (74351)By: PAM Sanz Comments: Lot #:[id number] date:ount given:0.5mlRoute: IMSite given:L DltdGiven by: VIS and ABN signed ADMINISTRATION OF INFLUENZA VIRUS On: 06-Sep-2013 Intent VACCINE (G0008)By: PAM Sanz Breast Screening - BilateralBy: On: 05-Jul-2013 Intent George Bueno MD Eprescribed prescriptions ([id number])By: On: 07-Mar-2013 Intent Shelby Padilla ELECTROCARDIOGRAM, COMPLETE (ECG) On: 14-Dec-2012 Intent ([id number])By: Nguyen Santana CNP, CNP, Mary E ADMINISTRATION OF INFLUENZA VIRUS On: 11-Sep-2012 Intent VACCINE ([id number])By: George Bueno MD FLU VAC, SPLIT, >3 YEARS, INTRAMUSC On: 11-Sep-2012 Intent ([id number])By: George Bueno MD Eprescribed prescriptions ([id number])By: On: 29-May-2012 Intent George Bueno MD EKG (24288)By: George Bueno MD On: 28-Feb-2012 Intent Comments: see scanned document of test done to see results reviewed today with patient Holter Monitor 24 hrsBy: Ximena ALEXANDRE, On: 28-Feb-2012 Intent George Moncada DXA, BONE DENSITY, AXIAL SKELETON On: 28-Feb-2012 Intent ([id number])By: George Bueno MD MAMMOGRAM, SCREENING, BOTH BREASTS On: 28-Feb-2012 Intent ([id number])By: George Bueno MD Pulse Oximetry ([id number])By: Yvon On: 28-Feb-2012 Intent PAM Ultrasound - AortaBy: Ximena ALEXANDRE, On: 17-Jan-2012 Intent George Moncada Carotid DopplerBy: George Bueno MD On: 17-Jan-2012 Intent Pulse Oximetry (49900)By: Yvon On: 17-Jan-2012 Intent PAM Spirometry ([id number])By: Max GIVENS, On: 10-Jan-2012 Intent Nguyen Skinner CNP Comments: Servere airway obstruction with low vital capacity Aerosol Treatment ([id number])By: Max On: 10-Jan-2012 Intent Nguyen GIVENS CNP, Mary E Solu -Medrol Injection, 125 mg On: 03-Jan-2012 Intent ([id number])By: Nguyen Santana CNP Comments: Lot # [id number]-R hip. IMDose 125nggiven by:Nguyen Lane CNP Radiology - ChestBy: Nguyen Santana CNP On: 03-Jan-2012 Intent Nguyen Mata CNP Aerosol Treatment ([id number])By: Max On: 03-Jan-2012 Intent Nguyen GIVENS CNP, Mary E Pulse Oximetry ([id number])By: Gab BETHEA, On: 03-Jan-2012 Intent Taryn Solu -Medrol Injection, 125 mg On: 30-Dec-2011 Intent ([id number])By: Nguyen Santana CNP Comments: Lot #[id number]-left hipDose-125mggiven by: Marie Alvarado LPN CNP, Mary E Aerosol Treatment ([id number])By: Max On: 30-Dec-2011 Intent Nguyen GIVENS CNP, Mary E Solu -Medrol Injection, 125 mg On: 28-Dec-2011 Intent ([id number])By: Nguyen Santana CNP Comments: Lot #[id number]-right hipDose-125 mggiven by: Marie Alvarado LPN CNP, Mary E Aerosol Treatment ([id number])By: Max On: 28-Dec-2011 Intent Nguyen GIVENS E Max GIVENS, Mary Pulse Oximetry ([id number])By: Max GIVENS, On: 26-Dec-2011 Intent Mary Max GIVENS, Mary Aerosol Treatment ([id number])By: Max On: 26-Dec-2011 Intent CHON, Mary Max GIVENS, Mary FLU VAC, SPLIT, >3 YEARS, INTRAMUSC On: 19-Aug-2011 Intent ([id number])By: George Bueno MD Comments: refuse Echo CompleteBy: George Bueno MD On: 23-Jun-2011 Intent Nuclear Stress Test/Stress On: 23-Jun-2011 Intent SPECT/TreadmillBy: George Bueno MD EKG ([id number])By: George Bueno MD On: 23-Jun-2011 Intent ADMINISTRATION OF PNEUMOCOCCAL On: 15-Dec-2010 Intent VACCINE ([id number])By: George Bueno MD PNEUM VAC ADLT/IMUMNOSPR, SBC/INTRM On: 15-Dec-2010 Intent (07784)By: George Bueno MD MAMMOGRAM, SCREENING, BOTH BREASTS On: 15-Dec-2010 Intent ([id number])By: George Bueno MD Eprescribed prescriptions ([id number])By: On: 15-Dec-2010 Intent George Bueno MD Aerosol Treatment ([id number])By: Ximena On: 06-Dec-2010 Intent George ALEXANDRE Pulse Oximetry ([id number])By: Yvon On: 06-Dec-2010 Intent PAM Spirometry ([id number])By: Ximena ALEXANDRE, On: 31-Aug-2010 Intent George Moncada Radiology - ChestBy: George Bueno MD On: 31-Aug-2010 Intent M Nuclear Stress Test/Stress On: 27-May-2010 Intent SPECT/TreadmillBy: George Bueno MD ELECTROCARDIOGRAM, COMPLETE (ECG) On: 27-May-2010 Intent ([id number])By: George Bueno MD Spirometry ([id number])By: Ximena ALEXANDRE, On: 27-May-2010 Intent George Moncada Pulse Oximetry ([id number])By: Ximena ALEXANDRE, On: 27-May-2010 Intent George Moncada MRI - BrainBy: George Bueno MD On: 27-May-2010 Intent Aerosol Treatment ([id number])By: Feliciano DRUMMOND, On: 22-Mar-2010 Intent Holly A Pulse Oximetry ([id number])By: Ashlee, On: 22-Mar-2010 Intent Stephanie Comments: 95%- spirometry with mod airway obsst CT - Brain/Head (IV Contrast On: 04-Feb-2010 Intent Needed)By: George Bueno MD Comments: attention posterior fossa EKG (02588)By: George Bueno MD On: 01-Jan-2010 Intent DXA, BONE DENSITY, AXIAL SKELETON On: 01-Jan-2010 Intent ([id number])By: George Bueno MD MAMMOGRAM, SCREENING, BOTH BREASTS On: 01-Jan-2010 Intent ([id number])By: George Bueno MD MRI - Shoulder(s) - RightBy: Ximena On: 01-Jan-2010 Intent George ALEXANDRE Radiology - Shoulder - RightBy: On: 07-Jan-2009 Intent George Buneo MD Holter Monitor 24 hrsBy: Ximena ALEXANDRE, On: 09-Dec-2008 Intent George Moncada ELECTROCARDIOGRAM, COMPLETE (ECG) On: 09-Dec-2008 Intent ([id number])By: George Bueno MD Spirometry ([id number])By: Ximena ALEXANDRE, On: 09-Dec-2008 Intent George Moncada Pulse Oximetry ([id number])By: Ximena ALEXANDRE, On: 09-Dec-2008 Intent George Moncada EKG (81079)By: George Bueno MD On: 29-May-2008 Intent Nuclear Stress Test/Stress On: 29-May-2008 Intent SPECT/TreadmillBy: George Bueno MD Pulse Oximetry (69877)By: Daniel ALBA, On: 13-Mar-2008 Intent Gin SPECIMEN HNDLNG/TRNSPRT, OFFC > LAB On: 13-Mar-2008 Intent ([id number])By: Gin Sanchez LPN Echo CompleteBy: George Bueno MD On: 29-Nov-2007 Intent Radiology - Lumbar SpineBy: Ximena On: 29-May-2007 George Mayer MD Radiology - Ankle - LeftBy: Ximena On: 28-Jun-2006 George Mayer MD Planned Medications INJECTION, METHYLPREDNISOLONE SODIUM SUCCINATE, UP TO 125 MG Ordered: 28-Dec-2011 Pending Ciesa FOOD SERVICE TECHNICIAN, Mary Ciesa FOOD SERVICE TECHNICIAN, Mary INJECTION, METHYLPREDNISOLONE SODIUM SUCCINATE, UP TO 125 MG Ordered: 30-Dec-2011 Pending Ciesa FOOD SERVICE TECHNICIAN, Mary Ciesa FOOD SERVICE TECHNICIAN, Mary INJECTION, METHYLPREDNISOLONE SODIUM SUCCINATE, UP TO 125 MG Ordered: 03-Jan-2012 Pending Ciesa FOOD SERVICE TECHNICIAN, Mary Ciesa FOOD SERVICE TECHNICIAN, Mary INJECTION, TRIAMCINOLONE ACETONIDE, NOT OTHERWISE SPECIFIED, [...] Indication: Hypertension Hypertension : DISCONTINUED - URINALYSIS (56235) Indication: Hypertension Hypertension : DISCONTINUED - MICROALBUMIN: CREATININE RATIO (42311) AND (84656) Indication: Hypertension Screening for breast cancer : DISCONTINUED - BILATERAL MAMMOGRAMS (97447) Indication: Screening for breast cancer Osteoporosis : [...] The patient does have durable power of rubber press tender and living will. The patient has noticed dropping activities and interests, poor spirits most of time, staying at home rather than doing something new or going out, having problems with memory than others, feeling worthless and lack of energy. Other providers contributing to the patient's care are director speech language (nusrat) and other: (last eye exam 2017- [...] several years, has had colonoscopy's last by [place] and normal. Encounter Diagnosis: Nonsmoker, BMI 27.0-27.9,adult, [...] using antibiotics. Note for Infection: went to [facility] urgent care last was put [...] Need for immunization against influenza), Mitral Valve Ghyjmqggwdvuz793.6), Osteoporosis (733.00), Irritable bowel syndrome (564.1), ATHEROSCLEROSIS, AORTIC (440.0), Anxiety (300.00), History of colon polyps, Asthma, intrinsic, mild intermittent, with status asthmaticus, Osteoarthritis, Shoulder pain (719.41), Allergic rhinitis [facility] Office Visit On: 19-Mar-2015 10:42 Encounter Reason: Injections - The medication the patient is here to receive is other (2 cc marcaine lot# [id number] exp: 01-31-2016 1cc kenalog lot# [id number] exp right shoulder ).Encounter Diagnosis: Shoulder pain [...] The patient does have durable power of rubber press tender and living will. The patient has noticed nothing from the geriatic depression scale. Other providers contributing to the patient's care are director speech language (Dr Silverio) and other: (Dr ridley saw [...] (733.00), Hypercholesterolemia (272.0), Osteoarthritis (715.96), Mitral Valve Glimmrnjzigpo853.6), Colon Polyps, History of (V12.72), Asthma,Intrinsic (493.11), [...] incontinence, female, Fever and chills, Mitral Valve Ovpzxjnlmzclb356.6), Colon Polyps, History of (V12.72), Irritable bowel [...] (493.11), Irritable bowel syndrome (564.1), Mitral Valve Ifcnlixjjbhmk145.6), Colon Polyps, History of (V12.72), Osteoporosis (733.00), [...] The patient does have durable power of rubber press tender and living will. The patient has noticed having problems with memory than others. Other providers contributing to the patient's c are are director speech language (Dr Silverio) and other: (Dr Rodrigues and [...] (401.0)), Osteoarthritis (715.96), Anxiety (300.00), Mitral Valve Gzfflcvwiwfkb119.6), Osteoporosis (733.00), Allergic Rhinitis(477.9), Tremors (781.0), ATHEROSCLEROSIS, [...] from Hypertension (401.0)), Anxiety (300.00), Mitral Valve Yihsyargxatqg631.6), Hypercholesterolemia (272.0), Asthma,Intrinsic (493.11), Colon Polyps, History [...] from Hypertension (401.0)), Anxiety (300.00), Mitral Valve Sjuwcpjjjnekh435.6), Osteoarthritis (715.96), Osteoporosis (733.00), Allergic Rhinitis(477.9), ATHEROSCLEROSIS, [...] (733.00), Hypercholesterolemia (272.0), Asthma,Intrinsic (493.11), Mitral Valve Bcsdyerezxlai257.6), Sleep disorder (780.50), ATHEROSCLEROSIS, AORTIC (440.0), Anxiety [...] ATHEROSCLEROSIS, AORTIC (440.0), Bradycardia (427.89), Mitral Valve Ahrrhmzegubxb497.6), Hip bursitis 726.5, Hypercholesterolemia (272.0), Anxiety (300.00), [...] Hypercholesterolemia (272.0), ATHEROSCLEROSIS, AORTIC (440.0), Mitral Valve Qjaywmumhupil918.6), Hip bursitis 726.5 [facility] [...] Anxiety (300.00), Chronic cough (786.2), Mitral Valve Rdsdmypfyohdc823.6), Irritable bowel syndrome (564.1), Asthma,Intrinsic (493.11), Colon [...] Sleep disorder (780.50), Tremors (781.0), Mitral Valve Lxmpjpsqlyzgh111.6), Anxiety (300.00), Osteoporosis (733.00), Irritable bowel syndrome [...] from Hypertension (401.0)), Tremors (781.0), Mitral Valve Pjgdkkycbejjh012.6), WWV-Bare, Shoulder pain (719.41), Headache (784.0), Irritable [...] (427.89), Irritable bowel syndrome (564.1), Mitral Valve Itzlykqhlsshq771.6), Headache (784.0), WWV-Bare [facility] [...] (427.89), Irritable bowel syndrome (564.1), Mitral Valve Vsivtvhlahxpy767.6), Other specified pruritic conditions (698.8), Headache (784.0) [...] (788.1), Low back pain (724.2), Mitral Valve Xiteuiugowpjw975.6), Osteopenia (733.90), Diarrhea (787.91), Sleep disorder (780.50), [...] (733.90), Acute sinusitis, unspecified (461.9), Mitral Valve Hcvznkzoitdbk624.6), WWV-Bare, Low back pain (724.2), Sciatica (724.3), [...] were reported. none reported. Note for Sinusitis/: [place] heat over bodyEncounter Diagnosis: ACUTE PHARYNGITIS (462.), [...] (272.0), Osteoarthritis (715.96), Allergic Rhinitis(477.9), Mitral Valve Tkfdpykrwsfcz409.6), Low back pain (724.2), Sciatica (724.3), WWV-Bare [...] (845.09), Hypertension (401.0), Hypercholesterolemia (272.0), Mitral Valve Xdrtretcxkzpt137.6), Sciatica (724.3), Allergic Rhinitis(477.9), WWV-Bare, Low back [...] (715.96), Hypercholesterolemia (272.0), Osteopenia (733.90), Mitral Valve Wkaxvidjeexcj485.6), WWV-Bare, Sciatica (724.3) [facility] Refill [...]
--- OUTSIDE RECORDS SUMMARY | 2018-10-28 14:15 | XMS RPT_ITS | Continuity of Care Document ---
:1935 Author Organization [facility] Address [address] [facility] [address] [place] [address] Phone Care Team Providers Name Role Phone Nguyen Santana CNP Unavailable Karey Beckman Unavailable Dr. Ren Benavides Unavailable Dayna Byrne Unavailable Ced Rodrigues MD Unavailable Nusrat ALEXANDRE, Romel Spencer Unavailable Dr. Jerry Xie Unavailable Sonia Byrd Unavailable Edouard , Home Green Unavailable Deisy Mitchell Unavailable Unavailable Renetta Gamboa Unavailable Unavailable Jo Gaitan LPN Unavailable Unavailable Shelby Padilla Unavailable Unavailable Unavailable Unavailable Problems Name Dates [...] Diarrhea (R19.7, 787.91) Status: Active Encounter for screening mammogram for [...] borderline Status: Active Hypertension (I10, 401.9) Comments: good. ekg little sinus arrthymia with varying rate but no signs and symptom stable on losartan hydrocholorathiazide and norvasc.Delmi Silverio last in March 2016, occas PAcs and rosana, stable on losartan, hctz, and norvasc Status: Active IBS (irritable bowel syndrome) (K58.9, 564.1) Comments: stable, with diarrhea with abd cramping after a meal although not always,tried hyoscyamine with some improvement but also stopped dairy but still uses immodium daily, tried creon with no benefit, now will try Xifaxanstop colesid not working Status: Active Internal hemorrhoid (K64.8, 455.0) Comments: from colonoscopy from Mary 08-26-13 Status: Active Keratosis, 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 weight bearing exercises. on calcium with vit d. Status: Active Pain, joint, shoulder region, right (M25.511, 719.41) Comments: pt has done nsaids, exercises, injections and PT and still alot pain and never back to where should be. MRI done and went to [facility]. 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 wheezing is better. echo, stress tests - , repeating per [employer] stress test on March [...] incontinence (R32, 788.30) Comments: interested in Kiki Gold pamphtoy given Status: Active Vaginal atrophy (N95.2, 627.3) Comments: premarin cream prn Status: Active Medications Name Dates Details ADVAIR HFA, 115-21MCG/ACT (Inhalation Aerosol) Active 2 puffs bid (115-21 MCG/ACT) ASPIRIN ADULT LOW DOSE, 81MG (Oral Tablet Delayed Release) 1 (one) Tablet DR daily for 30 days Refills: 0 Ordered:14-Mar-2016 gNuyen Santana CNP, CNP, Mary Start : 14-Mar-2016 Active ASTELIN, 137MCG/SPRAY (Nasal Solution) 1-2 sprays each nostril qd (137 MCG/SPRAY) Active CALCIUM + D, 107-117AA-DISL (Oral Tablet) 1 qd for 0 days Refills: 0 Ordered:24-Jun-2009 Angelique Miller CENTRUM SILVER (Oral Tablet) 1 qd for 0 days Refills: 0 Ordered:24-Jun-2009 Angelique Miller Creon 85859 UNIT Oral Capsule Delayed Release Particles 2 (two) Unit Unit with each meal for 0 days Quantity: 36 {Tablet} Refills: 0 Ordered:09-Jul-2018 Deisy Mitchell Start : 02-Jul-2018 Active Comments:samples given HydroCHLOROthiazide 25 MG Oral Tablet 1 (one) Tablet QD for 0 days Quantity: 30 {Tablet} Refills: 7 Ordered:15-Sep-2017 Max GIVENS, Nguyen Dover CNP Start : 15-Sep-2017 Active Hyoscyamine Sulfate ER 0.375 MG Oral Tablet Extended Release 12 Hour 1 (one) Tablet Tablet q12hrs prn for IBS and Gi spasms for 0 days Quantity: 60 {Tablet} Refills: 0 Ordered:11-Jun-2018 PaulaDeisy murdock Start : 11-Jun-2018 Active Losartan Potassium 50 MG Oral Tablet 1 (one) Tablet daily for 0 days Quantity: 30 {Tablet} Refills: 11 Ordered:11-Jun-2018 Max GIVENS, Nguyen Dover CNP Start : 11-Jun-2018 Active Norvasc 2.5 MG Oral Tablet 1 Tablet daily for 0 days Quantity: 30 {Tablet} Refills: 3 Ordered:02-May-2018 Max GIVENS, Nguyen Dover CNP Start : 02-May-2018 Active Premarin 0.625 MG/GM Vaginal Cream uad Cream twice a week for 0 days Quantity: 1 {Tube} Refills: 6 Ordered:23-Aug-2016 Max GIVENS, Nguyen Dover CNP Start : 23-Aug-2016 Active Propranolol HCl 40 MG Oral Tablet 1 (one) Milligram Milligram bid for 0 days Quantity: 60 {Milligram} Refills: 3 Ordered:02-Jul-2018 Paula Deisy Start : 11-Jun-2018 Active Xifaxan 550 MG Oral Tablet 1 (one) Tablet tid for 7 days Quantity: 21 {Tablet} Refills: 0 Ordered:12-Jul-2018 Max GIVENS, Nguyen Dover CNP Start : 12-Jul-2018 Active Zoloft 100 MG Oral Tablet 1 (one) Tablet qd for 0 days Quantity: 30 {Tablet} Refills: 6 Ordered:02-May-2018 Max GIVENS, Nguyen Dover CNP Start : 02-May-2018 Active ALIGN, 4MG (Oral [...] days Quantity: 20 {Tablet} Refills: 0 Ordered:09-Dec-2010 Mast Taryn BETHEA Start : 09-Dec-2010 End : 19-Dec-2010 Inactive [...] days Quantity: 6 {Tablet} Refills: 0 Ordered:08-Nov-2016 Max GIVENS, Nguyen Najera CNP, Nguyen Briones Start : 08-Nov-2016 End : 11-Nov-2016 Inactive [...] {Tablet} Refills: 0 Ordered:11-Jun-2018 Max GIVENS, Nguyen Najera CNP, Nguyen Briones Start : 11-Jun-2018 End : 11-Jun-2018 Inactive [...] {Tablet} Refills: 0 Ordered:03-Jan-2012 Max GIVENS, Nguyen Dover CNP Start : 03-Jan-2012 End : 10-Jan-2012 Inactive LEVOFLOXACIN, 500MG (Oral Tablet) 1 (one) Tablet daily for 7 days Quantity: 7 {Tablet} Refills: 0 Ordered:01-Sep-2014 Max GIVENS, Nguyen Dover CNP Start : 01-Sep-2014 End : 08-Sep-2014 Inactive LORATADINE, 10MG (Oral Tablet) 1 prn for 0 days Refills: 0 Ordered:29-May-2008 PAM Sanz End : 29-May-2008 Inactive Macrobid 100 MG Oral Capsule 1 (one) Capsule bid for 7 days Quantity: 14 {Capsule} Refills: 0 Ordered:08-Nov-2016 Nguyen Santana CNP, CNP, Mary E Start : 08-Nov-2016 End : 08-Nov-2016 Inactive Comments:[facility]F Meloxicam 7.5 MG Oral Tablet 1 (one) Tablet daily as directed for 0 days Quantity: 30 {Tablet} Refills: 0 Ordered:19-Dec-2017 Long GOLF BALL WINDER, Ariana L Start : 15-Sep-2017 End : 19-Dec-2017 Inactive PATANOL, 0.1% (Ophthalmic Solution) 1 Solution each eye bid. for 0 days Quantity: 1 {Solution} Refills: 0 Ordered:23-Jun-2011 PAM Sanz Start : 10-Mar-2011 End : 23-Jun-2011 Inactive PENICILLIN V POTASSIUM, 250MG (Oral Tablet) 1 (one) Tablet tID for 10 days Quantity: 30 {Tablet} Refills: 0 Ordered:07-Apr-2008 Nguyen Santana CNP, CNP, Mary E Start : 07-Apr-2008 End : 21-Apr-2008 Inactive [...] days Quantity: 1 {Aerosol_Soln} Refills: 3 Ordered:19-Dec-2017 Long GOLF BALL WINDER, Ariana L Start : 23-Aug-2016 End : [...] Start : 05-May-2010 End : 06-Dec-2010 Inactive XYZAL, 5MG (Oral Tablet) Tablet QD for 0 days Quantity: 30 {Tablet} Refills: 0 Ordered:29-Apr-2008 PAM Sanz Start : 29-Apr-2008 End : 29-May-2008 Inactive Zithromax Z-Fransisco 250 MG Oral Tablet 1 (one) Tablet TAD for 0 days Quantity: 1 {Package} Refills: 0 Ordered:19-Dec-2017 Long GOLF BALL WINDER, Ariana L Start : 10-Nov-2017 End : 19-Dec-2017 Inactive ZOSTAVAX, 62601MIY/0.65ML (Subcutaneous Solution Reconstituted) 1 For Solution once [...] days Quantity: 30 {Tablet} Refills: 6 Ordered:09-Dec-2008 Miranda Bueno MD Start : 09-Dec-2008 End : 23-Jun-2009 Discontinued CELEXA, 20MG (Oral Tablet) 1 (one) Tablet qd for 0 days Quantity: 30 {Tablet} Refills: 6 Ordered:15-Sep-2015 Miranda Bueno MD Start : 15-Sep-2015 End : 15-Sep-2015 [facility] End : 08-Nov-2016 Discontinued [facility] Oral Capsule 1 (one) Capsule Capsule daily for 0 days Quantity: 30 {Capsule} Refills: 0 Ordered:05-Jul-2017 Renetta Gamboa Start : 23-Aug-2016 End : 05-Jul-2017 Discontinued DIOVAN, 160MG (Oral Tablet) 1 Tablet qd for 0 days Quantity: 30 {Tablet} Refills: 6 Ordered:15-Dec-2010 Miranda Bueno MD Start : 15-Dec-2010 End : 15-Dec-2010 Discontinued FOLIC ACID, 400MCG (Oral Tablet) 1 QD for 0 days Refills: 0 Ordered:29-Jan-2007 PAM Sanz End : 29-Jan-2007 Discontinued FUROSEMIDE, 20MG (Oral Tablet) 1 Tablet QD for 0 days Refills: 0 Ordered:29-Jan-2007 Miranda Bueno MD Start : 29-Jan-2007 End : 29-Jan-2007 Discontinued LISINOPRIL, 20MG (Oral Tablet) 1 Tablet QD for 30 days Quantity: 30 {Tablet} Refills: 6 Ordered:27-May-2010 Miranda Bueno MD Start : 27-May-2010 End : [...] days Quantity: 90 {Tablet} Refills: 6 Ordered:28-Feb-2012 Miranda Bueno MD Start : 28-Feb-2012 End : [...] 788.1) 17-Jun-2010 Status: Inactive as of 06-Sep-2013 Encounter for Medicare annual wellness exam (Z00.00, V70.0) Comments: 03-16. nmammo 11-14, BD 11-14, colonscopy fall 13, reveiwed with patient all questions. due for prevnar 13 adn will get at [facility]. tetnaus due now. pt no fmx breast cancer and at her age want to go every other year to decrease radiation risk Status: Inactive as of 19-Mar-2015 Fever and chills (R50.9, 780.60) Status: Inactive [...] good saw Dr. silverio. will follow up withhim 08-14 Status: Inactive as of 19-Mar-2015 Other [...] Comments: See Note; NOTES: [facility] [address] [place] [address] OFFICE VISIT Date of Service: 03/31/18 MR#: [id number] Acct: [id number] Name: GAYATRI NAQVI Rep #: [id number] : 1935 Provider: RHODA Cisse Age/Sex: 82/F Location: [facility] Status: Signed Intake Vital Signs03/31/18 Height 5 [...] Medications New: nitrofurantoin monohyd/m-cryst 100 mg (Macrobid) ejvsbv044 mg PO Q12H 7 days UTI N39.0 [...] Visit Report Result: Comments: See Note; NOTES: [facility] [address] [place] [address]. [address] [place] [address] OFFICE VISIT Date of Service: 02/28/18 MR#: [id number] Acct: [id number] Name: GAYATRI NAQVI Rep #: [id number] : 1935 Provider: Romel Silverio MD Age/Sex: 82/F Location: [facility] Status: Signed HPI HPI Details: GAYATRI [...] Signature: Date (if applicable) CC: Nguyen Santana INTERIOR DESIGN ASSISTANT; Dayna Byrne MD 09-Feb-2018 Urgent Care Visit Report Result: Comments: See Note; NOTES: [facility] [address] [place], [place] [id number] OFFICE VISIT Date of Service: 02/09/18 MR#: [id number] Acct: [id number] Name: GAYATRI NAQVI Rep #: [id number] : 1935 Provider: Anjel DUONG Age/Sex: 82/F Location: [facility] Status: Signed Intake Vital Signs02/09/18 Height 5 [...] Comments: See Note; NOTES: [facility] [address] [place] [address] OFFICE VISIT Date of Service: 01/26/18 MR#: [id number] Acct: [id number] Name: GAYATRI NAQVI Rep #: [id number] : 1935 Provider: Anjel DUONG Age/Sex: 82/F Location: [facility] Status: Signed Intake Vital Signs01/26/18 Height 5 [...] changes Exam Const General: cooperative, healthy appearing HENWI Head: normal to inspection Ears: hearing grossly [...] the above. This note was generated with CoAlign dictation software. It may contain incorrect words, spelling, [...] Only (Routine) Result: Comments: See Note; NOTES: [facility] Imaging Services [address] [place] [address] Lower Ext Joint Only (Routine) MR#: [id number] Acct: [id number] Name: GAYATRI NAQVI Rep # : [id number] : 1935 F 81 From: Gianluca Camarena MD PCP: Nguyen Santana Status: REG CLI Study: Lower Ext Joint Only (Routine) Date of Exam: 07/13/17 Exam# [id number] Ordering Dr: Nguyen Santana STUDY: MRI RIGHT [...] , Service support , CC: Nguyen Santana Chaplaincy: Signed 07-Jul-2017 PT D/C Summary (1) Result: Comments: See Note; NOTES: [facility] Physical Therapy [facility] [address] [place] [address]. [address] [place] [address] Fax [facility]ATION [facility] SUMMARY MR#: [id number] Acct: [id number] Name: GAYATRI NAQVI Rep #: [id number] : 1935 81 From: Levon Jay DPT, OCS, CSCS Referring DrLizzy: Nguyen Santana Status: REG RCR Insurance: [facility] MEDICARE HP - PT D/C Summary It has been my pleasure to treat GAYATRI NAQVI under orders from Nguyen Santana, for the diagnosis of R knee pain for a total of 7 visit(s). Discharge Date: 07/06/17 Ronnie mckee see the following information for a summary of their discharge status. - Subjective Subjective: Pain this week 4-510 all week. Worse with weight bearing. Not [...] degeneratwed medial knee. MRI is approp. Medial coping machine assembler brace may be approp after MRI if other options not available(injection, Ortho) If there are questions or concerns regarding this patient's physical therapy, please feel free to call me at [phone]. Thank you for the referral of this patient. Sincerely, Levon Jay DPT, OC <Electronically signed by Levon Jay DPT, PITO, CSCS> 07/07/17 0642 CC: Nguyen Santana EBG Signed -Jun-2017 Inital Evaluation (1) - PT Result: Comments: See Note; NOTES: [facility] Physical Therapy [facility] [address] [place] [address]. [address] [place] [address] Fax REHABILITATION SERVICES INITIAL EVALUATION MR#: [id number] Acct: [id number] Name: GAYATRI NAQVI Rep #: [id number] : 1935 81 From: Levon Jay DPT, PITO, CSCS Referring DrLizzy: Nguyen Santana Status: REG RCR Insurance: [employer] [...] Discharge Instruction Result: Comments: See Note; NOTES: [facility] Medical Records Department [address] [place] [address] Discharge Instruction 06/06/17 2317 MR#: [id number] Acct: [id number] Name: MONET NAQVI Rep #: [id number] : 1935 81 From: Po Herrera MD [...] your Primary Care Provider. Call [facility] ([phone]) or rep ort to the closest Emergency Room. Call 911 if necessary. 06/06/17 2318 <Electronically signed by Po Herrera MD> Date Po Herrera MD Cosigner Signature (If Indicated): Date CC: Nguyen Max 06-Jun-2017 Emergency Department Summary Result: Comments: See Note; NOTES: [facility] Medical Records Department [address] [place] [address] Emergency Department Summary 06/06/17 2312 MR#: [id number] Acct: [id number] Name: GAYATRI NAQVI Rep #: [id number] : 1935 81 From: Po Herrera MD [...] contact your Primary Care Provider. Call [facility] ([phone]) or report to the closest Emergency Room. Call 911 if necessary. 06/06/17 8247 <Electronically signed by Po Herrera MD> Date Po Herrera MD Cosigner Signature (If Indicated): Date CC: Nguyen Brittanyadrien 06-Jun-2017 Knee 4 or More Views Result: Comments: See Note; NOTES: [facility] Imaging Services [address] [place] [address] Knee 4 or More Views MR#: [id number] Acct: [id number] Name: GAYATRI NAQVI Rep #: [id number] : 1935 F 81 From: Stephanie Diaz MD PCP: Nguyen Santana Status: REG ER Study: Knee 4 or More Views Date of Exam: 06/06/17 Exam# [id number] Ordering Dr: Po Herrera MD STUDY: X-RAY [...] Stephanie Diaz MD at 23:01 EDT Tel [phone], Service support , CC: Nguyen Santana; Po Herrera MD Chaplaincy: Signed 06-Jun-2017 Liver Result: Comments: See Note; NOTES: [facility] Imaging Services [address] [place] [address] Liver MR#: [id number] Acct: [id number] Name: DRISSGAYATRI E Rep #: [id number] : [birth year] F 81 From: Rogelio Kumar MD PCP: Nguyen Santana Status: REG CLI Study: Liver Date of Exam: 06/06/17 Exam# [id number] Ordering Dr: Nguyen Santana STUDY: ABDOMINAL ULTRASOUND [...] Kumar MD at 11:47 EDT Tel [phone], Service support , CC: Nguyen Santana Chaplaincy: Signed 27-Mar-2017 Echocardiogram Complete Result: Comments: See Note; NOTES: [facility] Cardiovascular Services [address] [place] [address] Echo Complete 03/24/17 0822 MR#: [id number] Acct: [id number] Name: GAYATRI NAQVI ep #: [id number] : 1935 81 From: Romel Silverio MD Attending Dr: Romel Silverio MD Status: REG CLI Ordering Dr: Romel Silverio MD Date: 03/24/17 Location: [facility] Sex: F C Admitted: Reason For [...] Physician: Nguyen Santana Performed By: Alice Torres FREDY Electronically s igned by: Romel Silverio MD on 03/24/2017 06:33 PM 03/24/171832 Date Romel Silverio MD CC: Nguyen Santana; Romel Silverio MD Date Dictated: 03/24/17 0 822 Date Transcribed: 03/24/171832 Chaplaincy: Signed 24-Mar-2017 Nuclear Stress Test - Treadmil Result: Comments: See Note; NOTES: [facility] Imaging Services [address] [place] [address] Verdana 4d Nuclear Stress Test - Treadmwa MR#: [id number] Acct: [id number] Name: JULIUS NAQVI Rep #: [id number] : 1935 81 From: Romel Silverio MD [...] 71%. Romel Silverio MD T: NTS JOB: [id number] 03/25/17 0927 <Electronically signed by Romel Silverio MD> Date Romel Silverio MD CC: Nguyen Santana; Romel Silverio MD Date Dictated: 03/24/17 1146 Date Transcribed: 03/24/17 1146 Chaplaincy: Signed 03-Mar-2017 Chest PA and Lateral Result: Comments: See Note; NOTES: [facility] Imaging Services [address] [place] [address] Verdana 4d Chest PA and Lateral MR#: [id number] Acct: [id number] Name: GAYATRI NAQVI Rep #: [id number] : 1935 F 81 From: Rogelio Kumar MD PCP: Nguyen Santana Status: REG CLI Study: Chest PA and Lateral Date of Exam: 03/03/17 Exam# [id number] Ordering Dr: Romel Silverio MD STUDY : [...] Kumar MD at 13:42 EDT Tel [phone], Service support , CC: Nguyen Santana; Romel Silverio MD Chaplaincy: Signed 12-Dec-2016 Abdomen/Pelvis without Cont Result: Comments: See Note; NOTES: [facility] Imaging Services [address] [place] [address] Verdana 4d Abdomen/Pelvis without Cont MR#: [id number] Acct: [id number] Name: GAYATRI NAQVI Rep #: [id number] : 1935 F 81 From: Philipp Moody MD PCP: Nguyen Santana Status: REG CLI Study: Abdomen/Pelvis without Cont Date of Exam: 12/12/16 Exam# [id number] Ordering Dr: Nguyen Santana JULIANN DY: CT [...] of the osseous structures. ORD ER #: [id number] CT/Abdomen/Pelvis without Cont IMPRESSION: Fatty liver. There are multiple colonic diverticula consistent with diverticulosis. 21mm hypodense lesion in the inferior right lobe of the l iver. This is incompletely evaluated and on contrast enhanced study. Other findings as above. Electronically Signed: Philipp Moody MD at 22:28 EDT , Service support [phone], CC: Nguyen Santana Chaplaincy: Signed 22-Sep-2016 Upper Ext Joint Only(Routine) Result: Comments: See Note; NOTES: [facility] Imaging Services [address] [place] [address] Verdana 4d Upper Ext Joint Only(Routine) MR#: [id number] Acct: [id number] Name: BERNICE NAQVI JOSEPH Briones Rep #: [id number] : 1935 F 80 From: Emmanuel Guido MD PCP: Ngyuen Santana Status: REG CLI Study: Upper Ext Joint Only(Routine) Date of Exam: 09/22/16 Exam# [id number] Ordering Dr: Adilene Byrd DO STUDY: MRI [...] MD at 17:06 EST , Service support [phone], CC: Nguyen Santana; Sonia Byrd DO Chaplaincy: Signed 08-Sep-2016 Shoulder min 2 Views Result: Comments: See Note; NOTES: [facility] Imaging Services [address] [place] [address] Verdana 4d Shoulder min 2 Views MR#: [id number] Acct: [id number] Name: GAYATRI NAQVI Rep #: [id number] : 1935 F 80 From: Emmanuel Guido MD PCP: Nguyen Santana Status: REG CLI Study: Shoulder min 2 Views Date of Exam: 09/08/16 Exam# [id number] Ordering Dr: Sonia Byrd DO STUDY: X-RA [...] at 11:28 EST Tel , Service support [phone], CC: Nguyen Santana; Sonia Byrd DO Chaplaincy: Signed 06-Sep-2016 Dexa Bone Density Study (HP) Result: Comments: See Note; NOTES: [facility] Imaging Services [address] [place] [address] Verdana 4d Dexa Bone Density Study (HP) MR#: [id number] Acct: [id number] Name: LIDA NAQVI Rep #: [id number] : 1935 F 80 From: Rogelio Kumar MD PCP: Nguyen Santana Status: REG CLI Study: Dexa Bone Density Study (HP) Date of Exam: 09/06/16 Exam# [id number] Ordering Dr: Joi Santana STUDY: DUAL ENERGY [...] Rogelio Kumar MD at 13:43 EST Tel [phone], Service support [phone], CC: Nguyen Santana Chaplaincy: Signed 24-May-2016 PT D/C Summary (1) Result: Comments: See Note; NOTES: [facility] Physical Therapy [facility] [address] [place] [address]. [address] [place] [address] Fax [facility]ILITATION [facility] SUMMARY MR#: [id number] Acct: [id number] Name: GAYATRI NAQVI Rep #: [id number] : 1935 80 From: Norma Thomas PTCert. ALEXANDRET Referring Dr.: Edson Franks DO Status: REG [...] - Plan Plan: D/C TO HEP. ENCOURAGED PA [place] TO CONTACT Cruzito PAYTON CNP IF SHE DOES NOT CONTINUE TO IMPROVE OVER THE NEXT MONTH - D/C Information If there are questions or concerns regarding this patient's physical therapy, please feel free to call me at [phone]. Thank you for the referral of this patient. Sincerely, Norma Thomas <Electronically signed by Cert. BALDOMERO Osborne PTT> 05/24/16 9664 CC: Miranda Bueno MD ; Edson Franks DO TAPAN Signed 18-Apr-2016 Re-Evaluation - PT (1) Result: Comments: See Note; NOTES: [facility] Physical Therapy [address] [place] [address] Fax REEVALUATION / ME DICARE RECERTIFICATION [place] [facility] PHYSICAL THERAPY MR#: [id number] Acct: [id number] Name: GAYATRI NAQVI Rep #: [id number] : 1935 80 From: Norma Thomas PT, Cert. MDT Referring DrLizzy: Ander Franks DO Status: REG RCR Insurance: [employer] MEDICARE Edson Franks, It has been my pleasure to treat GAYATRI NAQVI over the last 10 visits for ANTERIOR DISLOCATION LEFT HUMERUS. P oscar see the progress note below for an [...] do not hesitate to contact me at [phone] by phone or if you have que stions or concerns regarding this new plan of care! Sincerely, Norma Thomas <Electronically signed by Norma Thomas PT, Cert. MDT> 04/18/16 6684 CC: Miranda Bueno MD; Edson mead DO TAPAN Signed For Medicare only, by signing this I certify the plan of care. Physicians Signature Date 16-Mar-2016 Inital Evaluation (1) - PT Result: Comments: See Note; NOTES: [facility] Physical Therapy [facility] [address] [place] [address]. [address] [place] [address] Fax REHABILITATION SE [facility] INITIAL EVALUATION MR#: [id number] Acct: [id number] Name: GAYATRI NAQVI Rep #: [id number] : 1935 80 From: Norma Thomas PT, CertLizzy MDT Referring Dr.: Edson Franks DO Status: RE G RCR Insurance: [employer] MEDICARE Patient's Visit [...] to be FAXED BACK to us at [phone] for Medicare purposes. Please let me know if there are questions or concerns regarding this plan of care. Physician Signature:__ Date: <Electronically signed by Norma Thomas PT, Cert. MDT> 03/16/16 1323 CC: Miranda Bueno MD; Edson Evon DRUMMOND TAPAN Signed For Medicare only, by signing this I certify the plan of care. Physicians Signature Date 06-Mar-2016 Discharge Instruction Result: Comments: See Note; NOTES: [facility] Medical Records Department [address] [facility] [place] [address] Discharge Instruction 03/04/161918 MR#: [id number] Acct: [id number] Name: GAYATRI NAQVI Rep #: [id number] : 1935 80 From: Pastor Mccain MD PCP: Miranda Bueno MD Status: DEP ER ED Disposition [...] problems, contact your doctor. Call [facility] ([phone]) or report to the closest Emergency Room. Call 911 if necessary. 03/06/16 0704 <Electronical ly signed by Pastor Mccain MD> Date Pastor Mccain MD Cosigner Signature (If Indicated): Date CC: Miranda Bueno MD 06-Mar-2016 Emergency Department Summary Result: Comments: See Note; NOTES: [facility] Medical Records Department [address] [place] [address] Emergency Department Summary MR#: [id number] Acct: [id number] Name: GAYATRI NAQVI Rep #: [id number] : 1935 80 From: Pastor Mccain MD PCP: Miranda Bueno MD Status: DEP ER DATE OF [...] Reduction, left shoulder. MD Khloe Padilla C: Miranda Alba MD T: REYES JEWELL B: [id number] 03/06/16 0704 <Electronically signed by Pastor Mccain MD> Date Pastor Mccain MD Cosigner Signature (If Indicated): Date CC: Miranda Bueno MD; Wesley Alba MD Date Dictated: 03/05/161121 Date Transcribed: 03/05/161121 Chaplaincy: Signed 04-Mar-2016 Shoulder One View Result: Comments: See Note; NOTES: [facility] Imaging Services [address] [place] [address] Verdana 4d Shoulder One View MR#: [id number] Acct: [id number] Name: STEPHANIE NAQVI Rep #: [id number] : 1935 F 80 From: Bernadette Daniel MD PCP: Miranda Bueno MD Status: REG ER Study: Shoulder One View Date of Exam: 03/04/16 Exam# [id number] Ordering Dr: Pastor Mccain MD STUDY: X-RAY [...] MD at 19:00 EDT , Service support [phone], RAD/Shoulder One View IMPRESSION: Anatomic relocation of the left glenohume ral joint without fracture deformity. Electronically Signed: Bernadette Daniel MD at 19:00 EDT , Service support [phone], CC: Miranda Xiao i, MD; Pastor Mccain MD Chaplaincy: Signed 04-Mar-2016 Hip 2-3 Views with Pelvis Result: Comments: See Note; NOTES: [facility] Imaging Services [address] [place] [address]66 Verda 4d Hip 2-3 Views with Pelvis MR#: [id number] Acct: [id number] Name: GAYATRI ROSA Rep #: [id number] : 1935 F 80 From: Bernadette Daniel MD PCP: Miranda Bueno MD Status: REG ER Study: Hip 2-3 Views with Pelvis Date of Exam: 03/04/16 Exam# [id number] Ordering Dr: Pastor Mccain MD STUDY: X-RAY [...] MD at 17:17 EDT , Service support [phone], RAD/Hip 2-3 Views with Pelvis IMPRESSION: Normal x-ray examination of the pelvis and hip. Chad quarles Signed: Bernadette Daniel MD at 17:17 EDT , Service support [phone], CC: Miranda Bueno MD; Pastor Mccain MD Chaplaincy: Signed 04-Mar-2016 Shoulder min 2 Views Result: Comments: See Note; NOTES: [facility] Imaging Services [address] [place] [address] Verda 4d Shoulder min 2 Views MR#: [id number] Acct: [id number] Name: Mayra NAQVI Rep #: [id number] : 1935 F 80 From: Bernadette Daniel MD PCP: Miranda Bueno MD Status: REG ER Study: Shoulder min 2 Views Date of Exam: 03/04/16 Exam# [id number] Ordering Dr: Zach Mccain MD STUDY: X-RAY [...] MD at 17:24 EDT , Service support [phone], Fax RAD/Shoulder min 2 Views IMPRESSION: Complete anterior dislocation of the left shoulder without identified fracture. Electronically Signed: Bernadette Daniel MD at 17:24 EDT , Service support [phone], CC: Miranda Bueno MD; Pastor Mccain MD Chaplaincy: Signed 04-Mar-2016 Wrist min 3 Views Result: Comments: See Note; NOTES: [facility] Imaging Services [address] [place] [address] Verdana 4d Wrist min 3 Views MR#: [id number] Acct: [id number] Name: STEPHANIE NAQVI Rep #: [id number] : 1935 F 80 From: Bernadette Daniel MD PCP: Miranda Bueno MD Status: REG ER Study: Wrist min 3 Views Date of Exam: 03/04/16 Exam# [id number] Ordering Dr: Pastor Mccain MD STUDY: X-RAY [...] at 17:12 EDT , Se rvice support [phone], RAD/Wrist min 3 Views IMPRESSION: Negative for fracture or dislocation. Electronically Signed: Bernadette Daniel MD at 17:12 EDT , Service support [phone], CC: Miranda Bueno MD; Pastor Mccain MD Chaplaincy: Signed 24-Mar-2015 Upper Ext Joint Only(Routine) Result: Comments: See Note; NOTES: [facility] Imaging Services [address] [place] [address] MRI Report MR#: [id number] Acct: [id number] Name: GAYATRI NAQIV Rep #: [id number] : 1935 F 79 From: Gianluca Camarena MD PCP: Miranda Bueno MD Status: REG CLI Study: Upper Ext Joint Only(Routine) Date of Exam: 03/24/15 Exam# [id number] Ordering Dr: Miranda Bueno MD STUDY: MRI RIGHT SHOULDER REASON [...] at 15:58 EDT Tel , Service support [phone], CC: Miranda Bueno MD Chaplaincy: Signed 18-Oct-2014 Emergency Department Summary Result: Comments: See Note; NOTES: [facility] Medical Records Department [address] [place] [address] Emergency Department Summary MR#: [id number] Acct: [id number] Name: Mayra NAQVI Rep #: [id number] : 1935 78 From: Stephanie Andersen MD PCP: Miranda Bueno MD Status: [facility] DATE OF SERVICE: 10/18/2014 CHIEF COMPLAINT: Fall. [...] injury. Stephanie Andersen MD T: NTS JOB: [id number] 10/18/14 160 6 <Electronically signed by Stephanie Andersen MD> Date Stephanie Andersen MD CC: Miranda Bueno MD Date Dictated: 10/18/14 1050 Date Transcribed: 10/18/14 1050 Chaplaincy: Signed 18-Oct-2014 Discharge Instruction Result: Comments: See Note; NOTES: [facility] Medical Records Department [address] [place] [address] Discharge Instruction 10/18/14 1040 MR#: [id number] Acct: [id number] Name: GAYATRI NAQVI Rep #: [id number] : 1935 78 From: Stephanie Andersen MD PCP: Miranda Bueno MD Status: REG ER ED Disposition - Plan for ED Patient: Disposition: Home Chief Complaint: Fall Instructions: ED HEAD INJURY, No Wake-Up (Adult) Referrals: Miranda Bueno MD [Primary Care Provider] - 1 [...] MD Cosigner Signature (If Indicated): Date CC: Miranda Bueno MD 18-Oct-2014 Brain/Head without Contrast Result: Comments: See Note; NOTES: [facility] Imaging Services [address] [place] [address] CAT Scan Report MR#: [id number] Acct: [id number] Name: GAYATRI NAQVI Rep #: [id number] : 1935 F 78 From: Jacklyn Vázquez MD PCP: Miranda Bueno MD Status: REG ER Study: Brain/Head without Contrast Date of Exam: 10/18/14 Exam# [id number] Ordering Dr: Stephanie Andersen MD STUDY: C [...] MD at 10:34 EST , Service support [phone], CC: Miranda Bueno MD; Stephanie Andersen MD Chaplaincy: Signed 18-Oct-2014 Spine Cervical without Contras Result: Comments: See Note; NOTES: [facility] Imaging Services [address] [place] [address] CAT Scan Report MR#: [id number] Acct: [id number] Name: GAYATRI NAQVI Rep #: [id number] : 1935 F 78 From: Jacklyn Vázquez MD PCP: Miranda Bueno MD Status: REG ER Study: Spine Cervical without Contras Date of Exam: 10/18/14 Exam# [id number] Ordering Dr: Stephanie Andersen MD STUDY : [...] MD at 10:45 EST , Service support [phone], CC: Miranda Bueno MD ; Stephanie Andersen MD Chaplaincy: Signed 13-Aug-2014 Bilat Scrn Digital & CAD Result: Comments: See Note; NOTES: [facility] Imaging Services [address] [place] [address] Breast Imaging Report MR#: [id number] Acct: [id number] Name: GAYATRI NAQVI Rep #: [id number] : 1935 F 78 From: Rogelio Kumar MD PCP: Miranda Bueno MD Status: REG CLI Exam# [id number] Ordering Dr: Miranda Bueno MD MAMMOGRAPHY - BILATERAL SCREENING REASON [...] Kumar MD at 10: 39 EST Tel [phone], Service support [phone], CC: Miranda Bueno MD Chaplaincy: Signed 13-Aug-2014 Dexa Bone Density Study (HP) Result: Comments: See Note; NOTES: [facility] Imaging Services [address] [place] [address] Bone Density Report MR#: [id number] Acct: [id number] Name: GAYATRI NAQVI Rep #: [id number] : 1935 F 78 From: Rogelio Kumar MD PCP: Miranda Bueno MD Status: REG CLI Study: Dexa Bone Density Study (HP) Date of Exam: 08/13/14 Exam# [id number] Ordering Dr: Miranda Bueno MD STUDY: DUAL ENERGY X-RAY ABSORPTIOMETRY [...] Rogelio Kumar MD at 13:55 EST Tel [phone], Service support [phone], CC: Miranda Bueno MD Chaplaincy: Signed 12-Aug-2013 Bilat Scrn Digital & CAD Result: Comments: See Note; NOTES: [facility] Imaging Services [address] [place] [address] Breast Imaging Report MR#: [id number] Acct: [id number] Name: GAYATRI NAQVI Rep #: [id number] : 1935 F 77 From: Rogelio Kumar MD PCP: Miranda Bueno MD Status: REG CLI Exam# [id number] Ordering Dr: Miranda Bueno MD MAMMOGRAPHY - BILATERAL SCREENING REASON [...] August 12 013 at 11:28:57 AM EST [phone] Electronically Signed GP/GP If you are the referring physician and would like to consult with the radiologist who provided this interpretation, please contact Rogelio Kumar M.D. at [phone]. If this radiologist is unavailable, you will be directed to another radiologist to assist. If you are a patient with a question regarding this report, pleas e contact your referring physician directly. Professional Interpretation Provided By: [employer], Phone , These documents contain legally protected [...] return or destruction of these documents. CC: Miranda Bueno MD Chaplaincy: Signed Immunization Name Dates Details Zoster (shingles) [...] smoker Vital Signs Date Test Result Details :07 Temperature 97.4 f Comments: Method: Temporal [...] Area Calculated 1.66 m2 :23 Comments: visual gdzyqp-OA-73/40, OS-20/40, B/L-20/40 Temperature 98.1 f Comments: Method: [...] 0.00 cm Results Date Description Value Details :57 Metabolic Panel, Comprehensive Comments: PATIENT NOT FASTINGPERFORMED BY: [facility] Imrdxo9284 [facility] [id number] (50278) ALT (SGPT) 28 [iU]/L (Normal) Range: 0-32 [...] 90 mg/dL (Normal) Range: 65-99 :57 TSH (08222) Comments: PATIENT NOT FASTINGPERFORMED BY: TV4 EntertainmentHunterdon Medical CenterNpfiou9725 [facility] [id number] TSH 1.450 {uIU/mL} (Normal) Range: 0.450-4.500 98-Jvv-565898:57 CBC, Platelets & Auto Diff Comments: PATIENT NOT FASTINGPERFORMED BY: TV4 EntertainmentHunterdon Medical CenterQlnsua1104 [facility] [id number] (12534) Immature Grans (Abs) 0.0 {x10E3/uL} (Normal) Range: [...] 3.77-5.28 WBC 7.8 {x10E3/uL} (Normal) Range: 3.4-10.8 25-Bcs-357666:00 URINE CELINE CULTURE-IDENTIFICATN Comments: PATIENT NOT FASTINGPERFORMED BY: [facility] Amjwgy1546 [facility] [id number] Information: SRC:UC (44622) Result 1 MUG (Normal) Comments: Mixed urogenital flora10,000-25,000 colony forming units per mL Urine Final report (Normal) Culture,Comprehensive 75-Vho-090376:21 Urinalysis, Office (41358) UA - LEUKOCYTE ESTERASE Negative (Normal) UA - NITRITE Negative (Normal) URINE UROBILINGN JOSÉ MIGUEL TIMED Normal mg/dL (Normal) UA - PROTEIN Negative mg/dL (Normal) UA - PH 7 (Normal) UA - BLOOD Negative (Normal) UA - SPECIFIC GRAVITY 1.010 (Normal) UA - KETONES Moderate mg/dL (Normal) UA - BILIRUBIN Negative (Normal) UA - GLUCOSE Negative (Normal) 75-Gtr-79384:30 Culture, Urine Comments: [facility] Zeyznirldd9169 [facility] [place], [address] CUUR See Note (Normal) Comments: Urine CultureORGANISM 1: Mixed Gram Positive OrganismsColony Count 11,000-25,000MIX CULTURE Mixed contaminants. Submit a new specimen if indicated. 12-Qox-23654:30 Urinalysis, Complete Comments: How was Urine Obtained? [facility] [address] [place], [place], [id number] MUCUS, URINE 0 SEEN {/hpf} (Normal) BACTERIA [...] (Normal) CLARITY Clear (Normal) COLOR Yellow (Normal) 96-Buz-717139:39 Culture, Urine Comments: [facility] [address] [place], [place], [id number] CUUR See Note (Normal) Comments: Urine CultureBelow infection level. ORGANISM 1: Mixed Gram Positive OrganismsColony Count 1000-10,000 17-Tua-191301:39 Urinalysis, Complete Comments: How was Urine Obtained? REPAIRER SWITCHGEAR TO SPECIFYAdena Pike Medical Center [address] [place], [address] MUCUS, URINE 0 SEEN {/hpf} (Normal) BACTERIA [...] CLARITY Clear (Normal) COLOR Yellow (Normal) :05 KBNGX-STGCLLOJVCZ-HCJNS (20416) Comments: PATIENT WAS FASTINGPERFORMED BY: [facility] [id number] AFP, Serum, Tumor Marker 3.0 ng/mL (Normal) Range: 0.0-8.3 Comments: Kristi ECLIA methodology :05 TSH (THYROID STIMULATING Comments: PATIENT WAS FASTINGPERFORMED BY: [facility] [id number] HORMONE) (25395) TSH 2.890 {uIU/mL} (Normal) Range: 0.450-4.500 :05 LIPID PANEL (92675) Comments: PATIENT WAS FASTINGPERFORMED BY: [facility] [id number] LDL/HDL Ratio 1.9 {ratio_units} (Normal) Range: 0.0-3.2 [...] Auto Diff Comments: PATIENT WAS FASTINGPERFORMED BY: [employer] Upnlic0233 [facility] [id number] (74019) Immature Grans (Abs) 0.0 {x10E3/uL} (Normal) Range: [...] 3.77-5.28 WBC 6.4 {x10E3/uL} (Normal) Range: 3.4-10.8 72-Jyq-89541:05 Metabolic Panel, Comprehensive Comments: PATIENT WAS FASTINGPERFORMED BY: [facility] Sipeon3545 [facility] [id number] (40629) ALT (SGPT) 31 [iU]/L (Normal) Range: 0-32 [...] mg/dL (Normal) Range: 65-99 :49 Rapid Flu (75684 x 2) Influenza A Ag Negative (Normal) :59 THROAT CULTURE (43702) Comments: PATIENT NOT FASTINGPERFORMED BY: [employer] LabPensqr Evinse1940 BASE IncOn license of [facility] [id number] Information: SRC:TH Result 1 RRF (Normal) Comments: Routine respiratory graeme Upper Respiratory Culture Final report (Normal) :54 Rapid Strep Test, Office (80524) Rapid Strep Test, Office Negative (Normal) :47 HgA1C , Office (96032) HgA1C , Office 5.8 % (Normal) Range: 4.6 - 7.1 :53 HEPATITIS PANEL (47940) Comments: today; PATIENT NOT FASTINGPERFORMED BY: MeroArteCoHunterdon Medical CenterRzwafg7506 [facility] [id number] Hep C Virus Ab <0.1 {s/co_ratio} (Normal) Range: 0.0-0.9 Comments: Negative: < 0.8 Indeterminate: 0.8 - 0.9 Positive: > 0.9 . The CDC recommends that a positive HCV antibody result be followed up with a HCV Nucleic Acid Amplification test (007140). Hep B Core Ab, IgM Negative (Normal) HBsAg Screen Negative (Normal) Hep A Ab, IgM Negative (Normal) :53 HEPATIC FUNCTION PANEL Comments: today; PATIENT NOT FASTINGPERFORMED BY: [facility]6370 [facility] [id number] (43126) ALT (SGPT) 29 [iU]/L (Normal) Range: 0-32 AST (SGOT) 30 [iU]/L (Normal) Range: 0-40 Alkaline Phosphatase, S 53 [iU]/L (Normal) Range: 39-117 Bilirubin, Direct 0.18 mg/dL (Normal) Range: 0.00-0.40 Bilirubin, Total 0.5 mg/dL (Normal) Range: 0.0-1.2 Albumin, Serum 4.7 g/dL (Normal) Range: 3.5-4.7 Protein, Total, Serum 6.5 g/dL (Normal) Range: 6.0-8.5 :53 VYOYN-AKRSWJKHOGB-TQNZH (22267) Comments: today; PATIENT NOT FASTINGPERFORMED BY: [facility]6370 [facility] [id number] AFP, Serum, Tumor Marker 3.0 ng/mL (Normal) Range: 0.0-8.3 Comments: Kristi ECLIA methodology 66-Yvs-603271:55 Basic Metabolic Profile (BMP) Comments: Order Date: 03/01/17Order Info: 0667-1 - *BMPOrder Info: 3026-2 - *T4 (Total)Comments: Reason:Order Info: 3016-3 - *TSHComments: Reason:[facility] Imnrvqiiuf0623 [facility] [place], [place], [address] ; cardio GAP 6 (Normal) Range: 5-15 [...] 7-18 GLU 96 mg/dL (Normal) Range: 70-110 80-Vbr-548282:55 CBC-Complete Blood Cnt No Diff Comments: Order Date: 03/01/17Order Info: 65235-1 - *CBC without DiffComments: Reason:[facility] [address] [place], [place], [id number] MPV 9.6 fL (Normal) Range: 6.2-12.0 PLT [...] 4.2-5.4 WBC 7.2 K/mm3 (Normal) Range: 4.4-11.0 85-Tvy-761452:55 T4 Total, Thyroxin Comments: Order Date: 03/01/17Order Info: 0667-1 - *BMPOrder Info: 3026-2 - *T4 (Total)Comments: Reason:Order Info: 3016-3 - *TSHComments: Reason:[facility] [address] [place], [address] T4 THYROXIN 9.3 ug/dL (Normal) Range: 4.8-13.9 66-Bqz-509227:55 Thyroid Stim Hormone (TSH) Comments: Order Date: 03/01/17Order Info: 0667-1 - *BMPOrder Info: 3026-2 - *T4 (Total)Comments: Reason:Order Info: 3016-3 - *TSHComments: Reason:[facility] [address] [place], [address] TSH 1.33 {uIU/mL} (Normal) Range: 0.358-3.74 7-Tah-705606:55 Urinalysis, Office (90004) UA - LEUKOCYTE ESTERASE Negative (Normal) UA - NITRITE Negative (Normal) URINE UROBILINGN JOSÉ MIGUEL TIMED Normal mg/dL (Normal) UA - PROTEIN Negative mg/dL (Normal) UA - PH 7.5 (Normal) UA - BLOOD Negative (Normal) UA - SPECIFIC GRAVITY 1.020 (Normal) UA - KETONES Negative mg/dL (Normal) UA - BILIRUBIN Negative (Normal) UA - GLUCOSE Negative (Normal) 9-Wun-386499:17 URINE CELINE CULTURE-JOSÉ MIGUEL COL Comments: PATIENT NOT FASTINGPERFORMED BY: [employer]70 [facility] [id number] Information: SRC:UC COUNT (41512) Result 1 MUG (Normal) Comments: Mixed urogenital flora25,000-50,000 colony forming units per mL Urine Final report (Normal) Culture,Comprehensive 6-Nsu-064205:05 Urinalysis, Office (60891) UA - LEUKOCYTE ESTERASE Small (Normal) UA - NITRITE Negative (Normal) URINE UROBILINGN OJSÉ MIGUEL TIMED Normal mg/dL (Normal) UA - PROTEIN Negative mg/dL (Normal) UA - PH 7 (Normal) UA - BLOOD Negative (Normal) UA - SPECIFIC GRAVITY 1.015 (Normal) UA - KETONES Small mg/dL (Normal) UA - BILIRUBIN Small (Normal) UA - GLUCOSE Negative (Normal) 07-Nov-20160:00 Culture, Urine Comments: [facility] [address] [place], [place], [id number] CUUR See Note (Normal) Comments: Urine CultureCulture exhibits no growth. 32-Ppz-07364:45 TSH (31899) Comments: PATIENT WAS FASTINGPERFORMED BY: [employer]70 [facility] [id number] TSH 2.950 {uIU/mL} (Normal) Range: 0.450-4.500 :45 Lipid Panel (31511) Comments: PATIENT WAS FASTINGPERFORMED BY: LabCoHunterdon Medical CenterCmaqbu8365 [facility] [id number]; OV 08/23 LDL/HDL Ratio 2.2 {ratio_units} (Normal) [...] Auto Diff Comments: PATIENT WAS FASTINGPERFORMED BY: [facility] Fugehi7116 [facility] [id number] (79245) Immature Grans (Abs) 0.0 {x10E3/uL} (Normal) Range: [...] Panel, Comprehensive Comments: PATIENT WAS FASTINGPERFORMED BY: LabCoHunterdon Medical CenterUstlib6847 [facility] [id number] (37052) ALT (SGPT) 30 [iU]/L (Normal) Range: 0-32 [...] Glucose, Serum 99 mg/dL (Normal) Range: 65-99 1-Dmb-134371:00 MICROALBUMIN: CREATININE RATIO Comments: PATIENT WAS FASTINGPERFORMED BY: [employer] Jlwkss8426 [facility] [id number] (28543) AND (10371) Microalb/Creat Ratio 9.2 {mg/g_creat} (Normal) Range: 0.0-30.0 Microalbumin, Urine 28.4 ug/mL (Normal) Creatinine, Urine 307.2 mg/dL (Normal) :00 METABOLIC PANEL, COMPREHENSIVE Comments: PATIENT WAS FASTINGPERFORMED BY: BeHome2476370 BASE IncOn license of [facility] [id number] (97585) ALT (SGPT) 23 [iU]/L (Normal) Range: 0-32 [...] Glucose, Serum 92 mg/dL (Normal) Range: 65-99 6-Ofi-535004:00 LIPID PANEL (31332) Comments: PATIENT WAS FASTINGPERFORMED BY: [facility]Tr[facility]6370 [facility] [id number]; fu 6-13 with [facility] LDL/HDL Ratio 1.9 {ratio_units} (Normal) Range: [...] Cholesterol, Total 211 mg/dL (Abnormal) Range: 100-199 8-Tpa-321111:00 CBC with auto diff Comments: PATIENT WAS FASTINGPERFORMED BY: Visual.lyTrinity Health [facility] Hospital6370 [facility] [id number] Information: 713304,E02963 (18546) Immature Grans (Abs) 0.0 {x10E3/uL} (Normal) Range: [...] 3.77-5.28 WBC 5.5 {x10E3/uL} (Normal) Range: 3.4-10.8 61-Mdb-680518:55 Urinalysis, Office (68484) UA - LEUKOCYTE ESTERASE Small (Normal) UA [...] Microscopic Examination Comments: PATIENT WAS FASTINGPERFORMED BY: wooju [place] [id number] Bacteria Moderate (Abnormal) Mucus Threads Present (Normal) Epithelial Cells (non renal) >10 {/hpf} (Abnormal) Range: 0 - 10 RBC 0-2 {/hpf} (Normal) Range: 0 - 2 WBC 11-30 {/hpf} (Abnormal) Range: 0 - 5 :10 CALCIFIDIOL (12910) VIT D 25 Comments: PATIENT WAS FASTINGPERFORMED BY: [facility]Case[facility] [id number] Vitamin D, 25-Hydroxy 30.0 ng/mL (Normal) Range: 30.0-100.0 Comments: Vitamin D deficiency has been defined by the [place] ofMedicine and an Endocrine Society practice guideline as alevel of serum 25-OH vitamin D less than 20 ng/mL (1,2).The Endocrine Society went on to further define vitamin Dinsufficiency as a level between 21 and 29 ng/mL (2).1. IOM ([place] of Medicine). 2010. Dietary reference intakes for calcium and D. [place]: The National Academies Press.2. Barb MF, Malachi BEYER, Bj MOREIRA, et al. Evaluation, treatment, and prevention of vitamin D deficiency: an Endocrine Society clinical practice guideline. JCEM. 2010; 96(7):1911-30. :10 URINALYSIS, W/ MICRO (95299) Comments: PATIENT WAS FASTINGPERFORMED BY: [employer]70 [employer] [place] [id number] Microscopic Examination See below: (Normal) Comments: Microscopic was indicated and was performed. Nitrite, Urine Negative (Normal) Urobilinogen,Semi-Qn 0.2 mg/dL (Normal) Range: 0.2-1.0 Bilirubin Negative (Normal) Occult Blood Negative (Normal) Ketones Negative (Normal) Glucose Negative (Normal) Protein 1+ (Abnormal) WBC Esterase 3+ (Abnormal) Appearance Cloudy (Abnormal) Urine-Color Yellow (Normal) pH 7.5 (Normal) Range: 5.0-7.5 Specific [place] 1.023 (Normal) Range: 1.005-1.030 :10 METABOLIC PANEL, COMPREHENSIVE Comments: PATIENT WAS FASTINGPERFORMED BY: [employer]6370 BASE IncOn license of [facility] [id number] (43275) ALT (SGPT) 26 [iU]/L (Normal) Range: 0-32 [...] mg/dL (Normal) Range: 65-99 :10 LIPID PANEL (80848) Comments: PATIENT WAS FASTINGPERFORMED BY: FitbitOn license of [facility] [id number] LDL/HDL Ratio 1.9 {ratio_units} (Normal) Range: 0.0-3.2 [...] auto diff Comments: PATIENT WAS FASTINGPERFORMED BY: [employer]6370 BASE IncOn license of [facility] [id number] Information: [id number],C95393; apt. 09-18-[birth year] (49187) Immature Grans (Abs) 0.0 {x10E3/uL} (Normal) Range: [...] With Differential/Platelet Comments: PATIENT WAS FASTINGPERFORMED BY: [facility]-FairhillCoHunterdon Medical CenterHfhozd7129 [facility] [id number] Information: 110281,Q52107 Immature Grans (Abs) 0.0 {x10E3/uL} (Normal) Range: [...] Panel (14) Comments: PATIENT WAS FASTINGPERFORMED BY: LabTr[facility]6370 [facility] [id number] ALT (SGPT) 24 [iU]/L (Normal) Range: 0-32 [...] With LDL/HDL Comments: PATIENT WAS FASTINGPERFORMED BY: wooju [place] [id number] Ratio LDL/HDL Ratio 2.1 {ratio_units} (Normal) Range: [...] (Abnormal) Range: 100-199 :27 Microalb/Creat Ratio, Clint Hunter Comments: PATIENT WAS FASTINGPERFORMED BY: wooju [place] [id number]; has fu 03-17-15 will review with her then Microalb/Creat Ratio 9.1 {mg/g_creat} Range: 0.0-30.0 (Normal) Microalbumin, Urine 25.2 ug/mL (Abnormal) Range: 0.0-17.0 Creatinine, Urine 278.2 mg/dL (Abnormal) Range: 15.0-278.0 Vitamin D, 25-Hydroxy 31.1 ng/mL (Normal) Comments: PATIENT WAS FASTINGPERFORMED BY: [employer]70 [facility] ServicesUnc Health Rexin [place] [id number] :27 Range: 30.0-100.0 Comments: Vitamin D deficiency has been defined by the [place] ofMedicine and an Endocrine Society practice guideline as alevel of serum 25-OH vitamin D less than 20 ng/mL (1,2).The Endocrine Society went on to further define vitamin Dinsufficiency as a level between 21 and 29 ng/mL (2).1. IOM ([place] of Medicine). 2010. Dietary reference intakes for calcium and D. [place]: The National Academies Press.2. Barb MF, Malachi [place], Bj MOREIRA, et al. Evaluation, treatment, and prevention of vitamin D deficiency: an Endocrine Society clinical practice guideline. JCEM. 2010; 96(7):1911-30. :35 Microscopic Examination Comments: PATIENT WAS FASTINGPERFORMED BY: [employer] Source70 BASE IncOn license of [facility] [id number] Bacteria None seen (Normal) Mucus Threads Present (Normal) Crystal Type Calcium Oxalate (Normal) Crystals Present (Abnormal) Epithelial Cells (non renal) 0-10 {/hpf} (Normal) Range: 0 - 10 RBC 0-2 {/hpf} (Normal) Range: 0 - 2 WBC 0-5 {/hpf} (Normal) Range: 0 - 5 :06 Rapid Strep Test, Office (70004) Rapid Strep Test, Office Negative (Normal) :03 Rapid Flu (35815 x 2) Influenza A Ag neg (Normal) :35 URINALYSIS, W/ MICRO (86093) Comments: 12-14; PATIENT WAS FASTINGPERFORMED BY: Disqus Kdcmgc3493 [facility]in [place] [id number] Microscopic Examination See below: (Normal) Comments: Microscopic was indicated and was performed. Nitrite, Urine Negative (Normal) Urobilinogen,Semi-Qn 1.0 mg/dL (Normal) Range: 0.0-1.9 Bilirubin Negative (Normal) Occult Blood Negative (Normal) Ketones Trace (Abnormal) Glucose Negative (Normal) Protein 1+ (Abnormal) WBC Esterase Trace (Abnormal) Appearance Clear (Normal) Urine-Color Yellow (Normal) pH 6.5 (Normal) Range: 5.0-7.5 Specific [place] 1.029 (Normal) Range: 1.005-1.030 :35 CBC, Platelets & Auto Diff Comments: -; PATIENT WAS FASTINGPERFORMED BY: [facility]Tr[facility]6370 [facility] [id number] Information: [id number] (47985) Immature Grans (Abs) 0.2 {x10E3/uL} Range: 0.0-0.1 [...] 3.4-10.8 (Abnormal) :35 Metabolic Panel, Comprehensive Comments: -; PATIENT WAS FASTINGPERFORMED BY: LabCoHunterdon Medical CenterEhbxlc4859 [facility] [id number] (56521) ALT (SGPT) 16 [iU]/L (Normal) Range: 0-32 [...] Glucose, Serum 81 mg/dL (Normal) Range: 65-99 8-Dec-55076:35 Lipid Panel (43097) Comments: -14; PATIENT WAS FASTINGPERFORMED BY: DisqusHunterdon Medical CenterKaeszw9768 [facility] [id number] LDL/HDL Ratio 1.7 {ratio_units} (Normal) Range: 0.0-3.2 [...] Cholesterol, Total 215 mg/dL (Abnormal) Range: 100-199 49-Zpk-596294:12 Metabolic Panel, Basic Comments: today; PATIENT NOT FASTINGPERFORMED BY: Disqus Kiqsoi2617 [facility] [id number] Information: [id number],NURSE DRAW (86602) Calcium, Serum 10.6 mg/dL (Abnormal) Range: 8.6-10.2 [...] Comments: 4 months; PATIENT WAS FASTINGPERFORMED BY: DisqusHunterdon Medical CenterTkekgn1703 [facility] [id number] Information: [id number] COMPREHENSIVE (25968) ALT (SGPT) 24 [iU]/L (Normal) Range: 0-32 [...] mg/dL (Normal) Range: 65-99 06-Jan-20148:06 LIPID PANEL (44364) Comments: 4 months; PATIENT WAS FASTINGPERFORMED BY: LATA [facility] Tyshta5034 [facility] [id number] LDL/HDL Ratio 2.0 {ratio_units} (Normal) Range: 0.0-3.2 LDL Cholesterol Calc 145 mg/dL (Abnormal) Range: 0-99 VLDL Cholesterol Thanh 22 mg/dL (Normal) Range: 5-40 HDL Cholesterol 71 mg/dL (Normal) Comments: According to ATP-III Guidelines, HDL-C >59 mg/dL is considered anegative risk factor for CHD. Triglycerides 111 mg/dL (Normal) Range: 0-149 Cholesterol, Total 238 mg/dL (Abnormal) Range: 100-199 :03 Potassium Serum (93995) Comments: today; PATIENT NOT FASTINGPERFORMED BY: [facility]6370 [facility] [id number] Information: [id number] Potassium, Serum 3.7 mmol/L (Normal) Range: 3.5-5.2 68-Smk-679989:41 MICROALBUMIN: CREATININE Comments: PATIENT NOT FASTINGPERFORMED BY: [place] 2376370 [facility] [id number] Information: [id number] RATIO (89368) AND (92654) Microalb/Creat Ratio 6.9 {mg/g_creat} (Normal) Range: 0.0-30.0 Microalbumin, Urine 19.6 ug/mL (Abnormal) Range: 0.0-17.0 Creatinine, Urine 282.6 mg/dL (Abnormal) Range: 15.0-278.0 :57 METABOLIC PANEL, COMPREHENSIVE Comments: PATIENT WAS FASTINGPERFORMED BY: [place] 2376370 [facility] [id number] (41882) ALT (SGPT) 26 [iU]/L (Normal) Range: 0-32 [...] mg/dL (Normal) Range: 65-99 :57 LIPID PANEL (52053) Comments: PATIENT WAS FASTINGPERFORMED BY: [facility].lyAlleghany Health [id number] LDL/HDL Ratio 1.7 {ratio_units} (Normal) Range: 0.0-3.2 [...] MANUAL DIFF Comments: PATIENT WAS FASTINGPERFORMED BY: [employer] [facility] [id number] Information: [id number] (51928) Immature Grans (Abs) 0.0 {x10E3/uL} (Normal) Range: [...] CREATININE RATIO Comments: PATIENT WAS FASTINGPERFORMED BY: TV4 EntertainmentHunterdon Medical CenterPkfsdt7384 [facility] [id number] (31674) AND (11102) Microalb/Creat Ratio 4.0 {mg/g_creat} (Normal) Range: 0.0-30.0 Microalbumin, Urine 8.3 ug/mL (Normal) Range: 0.0-17.0 Creatinine, Urine 206.4 mg/dL (Normal) Range: 15.0-278.0 :29 METABOLIC PANEL, COMPREHENSIVE Comments: PATIENT WAS FASTINGPERFORMED BY: TV4 EntertainmentHunterdon Medical CenterWlwmzx6256 [facility] [id number] (37590) ALT (SGPT) 22 [iU]/L (Normal) Range: 0-32 [...] mg/dL (Normal) Range: 65-99 :29 LIPID PANEL (92024) Comments: PATIENT WAS FASTINGPERFORMED BY: [employer]6370 BASE IncOn license of [facility] [id number] LDL/HDL Ratio 1.9 {ratio_units} (Normal) Range: 0.0-3.2 [...] MANUAL DIFF Comments: PATIENT WAS FASTINGPERFORMED BY: [employer]70 [facility] [id number] Information: [id number] (19466) Immature Grans (Abs) 0.0 {x10E3/uL} (Normal) Range: [...] Ambiguous Default Comments: PATIENT WAS FASTINGPERFORMED BY: LATA LabCoHunterdon Medical CenterBgiiqs7237 [facility] [id number] Immature Grans (Abs) 0.0 {x10E3/uL} (Normal) Range: [...] PANEL, COMPREHENSIVE Comments: PATIENT WAS FASTINGPERFORMED BY: LabCoHunterdon Medical CenterQjichk9075 [facility] [id number] (70514) ALT (SGPT) 22 [iU]/L (Normal) Range: 0-32 [...] mg/dL (Normal) Range: 65-99 :06 LIPID PANEL (80606) Comments: PATIENT WAS FASTINGPERFORMED BY: LabCoHunterdon Medical CenterFslynm3027 [facility] [id number] LDL/HDL Ratio 1.2 {ratio_units} (Normal) Range: 0.0-3.2 LDL Cholesterol Calc 95 mg/dL (Normal) Range: 0-99 VLDL Cholesterol Thanh 13 mg/dL (Normal) Range: 5-40 HDL Cholesterol 80 mg/dL (Normal) Comments: According to ATP-III Guidelines, HDL-C >59 mg/dL is considered anegative risk factor for CHD. Triglycerides 64 mg/dL (Normal) Range: 0-149 Cholesterol, Total 188 mg/dL (Normal) Range: 100-199 :59 Urinalysis, Office (73284) UA - BILIRUBIN Negative (Normal) UA - BLOOD Hemolyzed Trace (Normal) UA - GLUCOSE Negative (Normal) UA - KETONES Negative mg/dL (Normal) UA - LEUKOCYTE ESTERASE Negative (Normal) UA - NITRITE Negative (Normal) UA - PH 8.0 (Normal) UA - PROTEIN Negative mg/dL (Normal) UA - SPECIFIC GRAVITY 1.015 (Normal) URINE UROBILINGN JOSÉ MIGUEL TIMED Normal mg/dL (Normal) 88-Okp-79469:11 DEXA BONE DENSITY STUDY (HP) Radiology Report [...] Kumar M.D.March 29, 2012 at 8:59:04 AM [phone] Signed GP/GP If you are the referring physician and would like to consult with theradiologist who provided this interpretation, please contact Miracle Dale at . If this radiologist is unavailable,youwill be directed to another radiologist to assist. If you are a patient with a question r egarding this report, pleasecontactyour referring physician directly. Professional Interpretation Provided By: [employer], Phone , Dictated on 03/28/12 0813 by Taty masters MD,Vimalranscribed on 03/29/12 0904 by ITS IMPORTSign by aJke ALEXANDRE,Rogelio on 03/29/12904 Sign by: Jake ALEXANDRE,Rogelio 10-Jkw-76051:00 BILAT SCRN DIGITAL & CAD Radiology Report [...] Kumar M.D.March 28, 2012 at 9:07:04 AM [phone] Signed GP/GP If you are the referring physician and would like to consult with theradiologist who provided this interpretation, please contact Miracle Dale at . If this radiologist is unavailable,youwill be directed to another radiologist to assist. If you are a patient with a question regarding this report, pleasecontactyour referring physician directly. Professional Interpretation Provided By: [employer], Phone , Dictated on 03/28/12 084 7 by Jake ALEXANDRE,Preetribed on 03/28/12 1125 by ITS IMPORTSign by Rogelio Kumar MD on 03/28/12 1126 Sign by: Rogelio Kumar MD 61-Kdg-08190:17 LIPID PANEL (23649) Comments: PATIENT NOT FASTINGPERFORMED BY: [employer]6370 BASE IncOn license of [facility] [id number] LDL Cholesterol Calc 93 mg/dL (Normal) Range: 0-99 LDL/HDL Ratio 1.3 {ratio_units} (Normal) Range: 0.0-3.2 VLDL Cholesterol Thanh 22 mg/dL (Normal) Range: 5-40 HDL Cholesterol 73 mg/dL (Normal) Comments: According to ATP-III Guidelines, HDL-C >59 mg/dL is considered anegative risk factor for CHD. Triglycerides 112 mg/dL (Normal) Range: 0-149 Cholesterol, Total 188 mg/dL (Normal) Range: 100-199 25-Gqe-80873:17 HEPATIC FUNCTION PANEL Comments: PATIENT NOT FASTINGPERFORMED BY: [employer]6370 [facility] [id number] Information: ADD DRAW FEE [id number] ADD J0 6473 (54811) ALT (SGPT) 28 [iU]/L (Normal) Range: 0-40 AST (SGOT) 29 [iU]/L (Normal) Range: 0-40 Alkaline Phosphatase, S 54 [iU]/L (Normal) Range: 25-165 Bilirubin, Direct 0.20 mg/dL (Normal) Range: 0.00-0.40 Bilirubin, Total 0.7 mg/dL (Normal) Range: 0.0-1.2 Albumin, Serum 4.6 g/dL (Normal) Range: 3.5-4.8 Protein, Total, Serum 6.5 g/dL (Normal) Range: 6.0-8.5 12-Wlm-86426:30 CBC WITH MANUAL DIFF Comments: PATIENT WAS FASTINGPERFORMED BY: LabTr[facility] Hospital6370 [facility] [id number] Information: [id number] (02378) Immature Grans (Abs) 0.0 {x10E3/uL} (Normal) Range: [...] {x10E3/uL} (Normal) Range: 4.0-10.5 :30 LIPID PANEL (71748) Comments: PATIENT WAS FASTINGPERFORMED BY: TV4 EntertainmentHunterdon Medical CenterVhsqsm9017 [facility] [id number]; OV 02/28/12 LDL/HDL Ratio 2.1 {ratio_units} (Normal) [...] PANEL, COMPREHENSIVE Comments: PATIENT WAS FASTINGPERFORMED BY: TV4 EntertainmentHunterdon Medical CenterGqkcda6530 [facility] [id number] (33666) ALT (SGPT) 19 [iU]/L (Normal) Range: 0-40 [...] Glucose, Serum 98 mg/dL (Normal) Range: 65-99 :30 MICROALBUMIN: CREATININE RATIO Comments: PATIENT WAS FASTINGPERFORMED BY: LabCoHunterdon Medical CenterSgnpao3126 [facility] [id number] (61710) AND (43716) Microalb/Creat Ratio 5.5 {mg/g_creat} (Normal) Range: 0.0-30.0 Creatinine, Urine 262.6 mg/dL (Normal) Range: 15.0-278.0 Microalbumin, Urine 14.4 ug/mL (Normal) Range: 0.0-17.0 :19 AORTA Radiology Report See Note (Normal) Comments: PROCEDURES: ULTRASOUND ABDOMINAL AORTA REASON FOR EXAM: Female, 76 years old. Atherosclerosis TECHNIQUE: Ultrasound evaluation of the aorta was performed withreal-time Ultrasonography with static wodo scale imaging. COMPARISON: None. FINDINGS:There is mild [...] regarding this repo rt, please call our [id number] line @ Dictated on 01/24/12 09 by Jaron Lindo MDTranscribed on 01/24/122328 by ITS IMPORTSign by Jaron Lindo MD on 01/24/12 2330 Sign by: Belg[place] ALEXANDREJaron 8-Vsv-469434:46 CHEST, PA AND LATERAL Radiology Report See [...] regarding this report, ple ase call our [id number] line @ Dictated on 01/03/12 1257 by Rakesh Benavidez MDTranscribed on 01/04/12 1540 by ITS IMPORTSign by Rakesh Benavidez MD on 01/04/12 1540 Sign by: Rakesh Benavidez MD 95-Lsf-73757:30 MYOCARD PERF STRESS/REST MULT Radiology Report See Note (Normal) Comments: EXERCISE STRESS TEST HISTORYA 75-year-old lady with history of abnormal EKG. XNHMHIMYD69.0 mCi of Sestamibi was injected at rest. [...] by Alejandro ALEXANDRE,CyrilTranscribed on 07/01/11 0530 by NIRMALA CEDILLOITESign by Alejandro ALEXANDRE,Gravelly on 07/10/11 1645 Sign by: ___ Alejandro ALEXANDRE,Jose :03 Creatinine Clearance Comments: PERFORMED BY: [place] [id number] Information: 06/26/11@7AM 06/27/11@7AM Creatinine Clearance 68 mL/min [...] Creatinine, Serum 0.94 mg/dL (Normal) Range: 0.57-1.00 :03 Protein Total, Qn, 24-Hr Comments: PERFORMED BY: [employer]63ITeamOn license of [facility] [id number] Urine Prot,24hr calculated <31.5 {mg/24_hr} (Normal) Range: 30.0-150.0 Protein,Total,Urine <1.5 mg/dL (Normal) Range: 0.0-15.0 Comments: Verified by repeat analysis :21 LIPID PANEL (08419) Comments: in three months (approximately); PATIENT WAS FASTINGPERFORMED BY: [employer] Tgtgzz5263 [facility] [id number] Information: [id number] LDL/HDL Ratio 2.1 {ratio_units} (Normal) Range: 0.0-3.2 [...] Microscopic Examination Comments: PATIENT WAS FASTINGPERFORMED BY: [employer]70 [facility] [id number] Bacteria Few (Normal) Mucus Threads Present (Normal) Crystal Type Amorphous Sediment (Normal) Crystals Present (Abnormal) Cast Type Hyaline casts (Normal) Casts Present {/lpf} (Abnormal) Epithelial Cells (non renal) 0-10 {/hpf} (Normal) Range: 0 - 10 RBC 4-10 {/hpf} (Abnormal) Range: 0 - 3 WBC 0-5 {/hpf} (Normal) Range: 0 - 5 :23 CBC WITH MANUAL DIFF (79674) Comments: PATIENT WAS FASTINGPERFORMED BY: TV4 EntertainmentHunterdon Medical CenterNupadh1359 [facility] [id number] Immature Grans (Abs) 0.0 {x10E3/uL} (Normal) Range: [...] {x10E3/uL} (Normal) Range: 4.0-10.5 :23 LIPID PANEL (11933) Comments: PATIENT WAS FASTINGPERFORMED BY: [employer] [place] [facility] [id number] LDL/HDL Ratio 2.0 {ratio_units} (Normal) Range: 0.0-3.2 [...] PANEL, COMPREHENSIVE Comments: PATIENT WAS FASTINGPERFORMED BY: [employer] [facility] [id number] (58490) ALT (SGPT) 32 [iU]/L (Normal) Range: 0-40 [...] Glucose, Serum 93 mg/dL (Normal) Range: 65-99 38-Ysl-28614:23 URINALYSIS, W/ MICRO (55130) Comments: PATIENT WAS FASTINGPERFORMED BY: LabCo Abyqfm4301 [facility] [id number]; appt 06/23/11 Microscopic Examination See below: (Normal) Nitrite, Urine Negative (Normal) Urobilinogen,Semi-Qn 0.2 mg/dL (Normal) Range: 0.0-1.9 Bilirubin Negative (Normal) Occult Blood Negative (Normal) Ketones Negative (Normal) Glucose Negative (Normal) Protein 1+ (Abnormal) WBC Esterase Negative (Normal) Appearance Cloudy (Abnormal) Urine-Color Yellow (Normal) pH 6.5 (Normal) Range: 5.0-7.5 Specific [place] 1.028 (Normal) Range: 1.005-1.030 30-Yir-671831:23 BILAT SCRN DIGITAL & CAD Radiology Report [...] 01/25/11 2351 Sign by: ELVIS SMITH MD 44-Caw-462058:01 Urinalysis, Office (95652) UA - BILIRUBIN Negative (Normal) UA - BLOOD Negative (Normal) UA - GLUCOSE Negative (Normal) UA - KETONES Negative mg/dL (Normal) UA - LEUKOCYTE ESTERASE Negative (Normal) UA - NITRITE Negative (Normal) UA - PH 7.0 (Normal) UA - PROTEIN Negative mg/dL (Normal) UA - SPECIFIC GRAVITY 1.015 (Normal) URINE UROBILINGN JOSÉ MIGUEL TIMED Normal mg/dL (Normal) 07-Uix-45148:28 Microscopic Examination Comments: PATIENT WAS FASTINGPERFORMED BY: [place] 2376370 [facility] [id number] Bacteria Few (Normal) Mucus Threads Present (Normal) Epithelial Cells (non renal) 0-10 {/hpf} (Normal) Range: 0 - 10 RBC 0-3 {/hpf} (Normal) Range: 0 - 3 WBC 0-5 {/hpf} (Normal) Range: 0 - 5 :28 LIPID PANEL (49300) Comments: PATIENT WAS FASTINGPERFORMED BY: [facility]6370 [facility] [id number] LDL/HDL Ratio 1.4 {ratio_units} (Normal) Range: 0.0-3.2 HDL Cholesterol 76 mg/dL (Normal) Comments: According to ATP-III Guidelines, HDL-C >59 mg/dL is considered anegative risk factor for CHD. LDL Cholesterol Calc 110 mg/dL (Abnormal) Range: 0-99 VLDL Cholesterol Thanh 23 mg/dL (Normal) Range: 5-40 Cholesterol, Total 209 mg/dL (Abnormal) Range: 100-199 Triglycerides 117 mg/dL (Normal) Range: 0-149 :28 URINALYSIS, W/ MICRO (85183) Comments: PATIENT WAS FASTINGPERFORMED BY: Visual.lyTr[facility] Hospital6370 [facility] [id number] Microscopic Examination See below: (Normal) Bilirubin Negative (Normal) Nitrite, Urine Negative (Normal) Occult Blood Negative (Normal) Urobilinogen,Semi-Qn 0.2 mg/dL (Normal) Range: 0.0-1.9 Appearance Clear (Normal) Glucose Negative (Normal) Ketones Negative (Normal) Protein 1+ (Abnormal) WBC Esterase Negative (Normal) pH 6.0 (Normal) Range: 5.0-7.5 Specific [place] 1.031 (Abnormal) Range: 1.005-1.030 Urine-Color Yellow (Normal) :28 METABOLIC PANEL, COMPREHENSIVE Comments: PATIENT WAS FASTINGPERFORMED BY: [facility]6370 [facility] [id number] (91157) Alkaline Phosphatase, S 47 [iU]/L (Normal) Range: [...] Glucose, Serum 98 mg/dL (Normal) Range: 65-99 20-Usk-04617:28 CBC WITH MANUAL DIFF Comments: PATIENT WAS FASTINGPERFORMED BY: LabCoHunterdon Medical CenterYkdaax4158 [facility] [id number] Information: [id number] (62797) Immature Grans (Abs) 0.0 {x10E3/uL} (Normal) Range: [...] of the chest. Dictated on 09/02/10852 by Sherwin Smithribed on 09/02/10852 by Roberto RENDON ACE by SusuPao on 09/06/10 0749 Sign by: Pao Cristobal 69-Irl-700395:35 N-Telopeptide, Urine Comments: PERFORMED BY: BN [facility] Xscolltgqc2637 [facility] [id number] BY: CB [facility] Avbbvm7228 [facility] [id number] Information: 06/23@7AM 06/24@7AM Interpretive Guide: SPRCS (Normal) [...] 1.4 p=0.2838- 51 2.5 p=0.0351- 67 3.8 p=0.975502-756 17.3 p=0.25509. Menopausal Women Receiving Antiresorptive Therapy: Theprobability that treatment is effective after threemonths is increased when the measured NTx va lue is<or=38 nM BCE/mM STEEL CHIPPER, or NTx has decreased >or=30% frombaseline (1)..3. [...] N-telopeptide 34 {nmol_BCE} (Normal) :11 Urinalysis, Office (54305) UA - LEUKOCYTE ESTERASE Negative (Normal) UA [...] Report See Note (Normal) Comments: Exam Number: [id number] MYOCARDIAL PERFUSION SCAN TECHNIQUEThe patient was injected [...] of 62%. Reported By: ROMEL SILVERIO M.D. 84-Dnl-472561:11 BRAIN W/WO CONTRAST Radiology Report See Note (Normal) Comments: Exam Number: [id number] CLINICAL:73-year-old female with tremors for over one [...] ischemic changes. Reported By: ELVIS BEARD M.D. 82-Eyp-976978:39 Basic Metabolic Panel (8) Comments: A courtesy copy of this report has been sent [phone].PERFORMED BY: [facility]6370 [facility] [id number] Information: [id number] Calcium, Serum 9.7 mg/dL (Normal) Range: 8.6-10.2 [...] CREATININE RATIO Comments: PATIENT WAS FASTINGPERFORMED BY: [employer]70 [facility] ServicesAlleghany Health [id number] (21324) AND (57370) Microalb/Creat Ratio 4.3 {mg/g_creat} (Normal) Range: 0.0-30.0 Microalbumin, Urine 6.1 ug/mL (Normal) Range: 0.0-17.0 Creatinine, Urine 140.7 mg/dL (Normal) Range: 15.0-278.0 :15 METABOLIC PANEL, COMPREHENSIVE Comments: PATIENT WAS FASTINGPERFORMED BY: [employer]70 [facility] [id number] (79410) ALT (SGPT) 30 [iU]/L (Normal) Range: 0-40 [...] mg/dL (Normal) Range: 65-99 :15 LIPID PANEL (68967) Comments: PATIENT WAS FASTINGPERFORMED BY: FitbitOn license of [facility] [id number] LDL Cholesterol Calc 150 mg/dL (Abnormal) Range: [...] MANUAL DIFF Comments: PATIENT WAS FASTINGPERFORMED BY: [employer]70 BASE IncOn license of [facility] [id number] Information: ADD [id number] AND DRAW FEE 99 1719 (20424) Immature Grans (Abs) 0.0 {x10E3/uL} (Normal) Range: [...] 3.80-5.10 WBC 6.0 {x10E3/uL} (Normal) Range: 4.0-10.5 97-Gmm-922427:33 CELINE CULTURE-OTHER (37164) Comments: PATIENT NOT FASTINGPERFORMED BY: [facility] Jwevct9496 [facility] [id number] Information: SRC:THRT [id number] Result 1 RRF (Normal) Comments: Routine respiratory graeme Upper Respiratory Culture Final report (Normal) 77-Byy-278526:14 Rapid Strep Test, Office (32328) Rapid Strep Test, Office Negative (Normal) 38-Bbe-230537:38 BRAIN/HEAD W/WO CONTRAST Radiology Report See Note (Normal) Comments: Exam Number: [id number] CT SCAN OF THE HEAD Multiple axial tomographic images were obtained with and withoutintravenous contrast administration. HISTORYThizach is a 74-year-old female patient with [...] without intravenous contrast. Reported By: ROGELIO KUMAR 61-Uyz-182638:47 BILAT SCRN DIGITAL & CAD Radiology Report See Note (Normal) Comments: Exam Number: [id number] MAMMOGRAM, BILATERAL SCREENING DIGITAL AND CAD HISTORYRoutine screening. Full field digital images were obtained in mediolateral oblique andcraniocaudal projections. CAD images w ere reviewed. The current study is compared to the examinations of June and September 08, 2008 from the [facility]. There is moderately dense fibroglandular parench yma [...] mammograms werealso examined with computer-aided detection software ([employer] Reported By: ELVIS SMITH M.D. 57-Nhe-953368:46 DEXA BONE DENSITY STUDY (HP) Radiology Report See Note (Normal) Comments: Exam Number: [id number] DEXA AXIAL SKELETON A DEXA scan was obtained. HISTORYThizach is a 74-year-old female patient with history of postmenopausalscreening. FINDINGSAt the level of the lumbar s pine, the pa denver's bone mineral densitymeasures 1.09 g/cm2. This gives [...] IMPRESSIONOsteopenia. Reported By: ROGELIO KUMAR :14 TSH (88700) Comments: PATIENT WAS FASTINGPERFORMED BY: LabCoHunterdon Medical CenterTpztmp9070 [facility] [id number] TSH 1.980 {uIU/mL} (Normal) Range: 0.450-4.500 :14 METABOLIC PANEL, COMPREHENSIVE Comments: PATIENT WAS FASTINGPERFORMED BY: [employer] LabCoHunterdon Medical CenterVrzubt1541 [facility] [id number] (81773) ALT (SGPT) 17 [iU]/L (Normal) Range: 0-40 [...] mg/dL (Normal) Range: 65-99 :14 LIPID PANEL (26344) Comments: PATIENT WAS FASTINGPERFORMED BY: [employer]70 [facility] Safety ServicesAlleghany Health [id number] HDL Cholesterol 84 mg/dL (Normal) Comments: According [...] MANUAL DIFF Comments: PATIENT WAS FASTINGPERFORMED BY: DisqusPlains Regional Medical CenterVhucfb1007 [facility] [id number] Information: [id number] (26633) Baso (Absolute) 0.1 {x10E3/uL} (Normal) Range: 0.0-0.2 [...] 3.80-5.10 WBC 6.3 {x10E3/uL} (Normal) Range: 4.0-10.5 02-Uel-532483:23 Urinalysis, Office (80813) UA - BILIRUBIN Negative (Normal) UA - BLOOD Negative (Normal) UA - GLUCOSE Negative (Normal) UA - KETONES Negative mg/dL (Normal) UA - LEUKOCYTE ESTERASE Negative (Normal) UA - NITRITE Negative (Normal) UA - PH 7.0 (Normal) UA - PROTEIN Negative mg/dL (Normal) UA - SPECIFIC GRAVITY 1.010 (Normal) URINE UROBILINGN JOSÉ MIGUEL TIMED Normal mg/dL (Normal) 74-Qam-371499:48 Hepatic Function Panel (7) Comments: PERFORMED BY: [facility]6370 [facility] [id number] Albumin, Serum 4.4 g/dL (Normal) Range: 3.5-4.8 Alkaline Phosphatase, S 57 [iU]/L (Normal) Range: 25-165 ALT (SGPT) 25 [iU]/L (Normal) Range: 0-40 AST (SGOT) 27 [iU]/L (Normal) Range: 0-40 Bilirubin, Direct 0.14 mg/dL (Normal) Range: 0.00-0.40 Bilirubin, Total 0.4 mg/dL (Normal) Range: 0.1-1.2 Protein, Total, Serum 6.4 g/dL (Normal) Range: 6.0-8.5 :29 Urinalysis, Office (73806) UA - BILIRUBIN Negative (Normal) UA - [...] Comments: PATIENT NOT FASTINGClinical Information: SRC:UR ADD [id number] PERFORMED BY: [facility]ins.lyAlleghany Health [id number] COUNT (79223) Result 1 NG36 (Normal) Comments: No growth in 36 - 48 hours. Urine Culture,Comprehensive Final report (Normal) :50 Metabolic Panel, Basic (16630) Comments: PATIENT NOT FASTINGClinical Information: ADD DRAW FEE [id number] ADD J 32429 PERFORMED BY: [facility]ins.lyAlleghany Health [id number] BUN 16 mg/dL (Normal) Range: 5-26 BUN/Creatinine [...] mmol/L (Normal) Range: 135-145 :58 Urinalysis, Office (78426) UA - BILIRUBIN Negative (Normal) UA - BLOOD Hemolyzed Trace (Normal) UA - GLUCOSE Negative (Normal) UA - KETONES Negative mg/dL (Normal) UA - LEUKOCYTE ESTERASE Negative (Normal) UA - NITRITE Negative (Normal) UA - PH 7.0 (Normal) UA - PROTEIN Negative mg/dL (Normal) UA - SPECIFIC GRAVITY 1.010 (Normal) URINE UROBILINGN JOSÉ MIGUEL TIMED 2 mg/dL (Normal) 1-Kes-170531:23 SHOULDER,MIN 2 VIEWS Radiology Report See Note (Normal) Comments: Exam Number: [id number] SHOULDER SERIES. HISTORYA 73-year-old woman with right shoulder pain. FINDINGSRight shoulder series. Cortical outlines are intact. Bones arenormally aligned, and joint spaces ar e well maintained. Soft tissuesare unremarkable. IMPRESSIONUnremarkable right shoulder series. Reported By: DAYNA RECINOS M.D. :07 Hepatic Function Panel (7) Comments: PATIENT WAS FASTINGPERFORMED BY: [facility] Jtueob0048 [facility] [id number] Albumin, Serum 4.3 g/dL (Normal) Range: 3.5-4.8 Alkaline Phosphatase, S 63 [iU]/L (Normal) Range: 25-165 ALT (SGPT) 27 [iU]/L (Normal) Range: 0-40 AST (SGOT) 29 [iU]/L (Normal) Range: 0-40 Bilirubin, Direct 0.10 mg/dL (Normal) Range: 0.00-0.40 Bilirubin, Total 0.3 mg/dL (Normal) Range: 0.1-1.2 Protein, Total, Serum 7.0 g/dL (Normal) Range: 6.0-8.5 :38 TSH (53416) Comments: PATIENT NOT FASTINGClinical Information: ADD DRAW FEE [id number] ADD J 75289 PERFORMED BY: [facility]Zlolwc6007 [facility] [id number] TSH 1.604 {uIU/mL} (Normal) Range: 0.450-4.500 05-Jun-20097:25 Metabolic Panel, Comprehensive Comments: PATIENT WAS FASTINGClinical Information: ADD [id number], J53467 PERFORMED BY: [facility] Iqcpri7530 [facility] [id number] (33906) A/G Ratio 2.4 (Normal) Range: 1.1-2.5 Albumin, [...] mmol/L (Normal) Range: 135-145 :25 Lipid Panel (03070) Comments: in six months (approximately); PATIENT WAS FASTINGPERFORMED BY: [facility] Fevkrw7771 [address] [place] [id number] Cholesterol, Total 256 mg/dL (Abnormal) Range: 100-199 HDL Cholesterol 73 mg/dL (Normal) Comments: According to ATP-III Guidelines, HDL-C >59 mg/dL is considered anegative risk factor for CHD. LDL Cholesterol Calc 156 mg/dL (Abnormal) Range: 0-99 LDL/HDL Ratio 2.1 {ratio_units} (Normal) Range: 0.0-3.2 Triglycerides 133 mg/dL (Normal) Range: 0-149 VLDL Cholesterol Thanh 27 mg/dL (Normal) Range: 5-40 :20 Urinalysis, Office (78827) UA - BILIRUBIN Negative (Normal) UA - [...] Report See Note (Normal) Comments: Exam Number: [id number] MYOCARDIAL PERFUSION SCAN 11.7 millicuries of Tc99m [...] By: JOSE AGUILERA M.D. :55 Urinalysis, Office (40800) UA - BILIRUBIN Negative (Normal) UA - [...] EARLY ANTIGN Comments: PATIENT NOT FASTINGPERFORMED BY: [facility] CenterUsspjl8037 [facility] [id number] ([id number]) EBV Ab VCA, IgG 1276 AU/mL (Abnormal) [...] + + Antibody Present - Antibody Absent 30-Blr-74688:36 Upper Respiratory Culture Comments: Clinical Information: SRC: PERFORMED BY: [facility]6370 [facility] [id number] Result 1 RRF (Normal) Comments: Routine respiratory graeme Upper Respiratory Culture Final report (Normal) :48 Rapid Strep Test, Office (52131) Comments: neg Rapid Strep Test, Office Negative [...] T PROT 7.0 g/dL (Normal) Range: 6.4-8.2 02-Xrs-54285:20 LIPID CHOL 238 mg/dL (Abnormal) Comments: <200 [...] mg/dL VLDL 13 mg/dL (Normal) Range: 5-40 84-Eyo-905259:41 URINE CELINE CULTURE-JOSÉ MIGUEL COL Comments: PATIENT NOT FASTINGClinical Information: SRC:UR PERFORMED BY: LATA [facility] CenterUfvaia8066 [facility] [id number] COUNT ([id number]) Result 1 NG36 (Normal) Comments: No growth in 36 - 48 hours. Urine Culture,Comprehensive Final report (Normal) 30-Umo-160355:30 Urinalysis, Office (54519) UA - LEUKOCYTE ESTERASE Trace (Normal) UA - NITRITE Negative (Normal) UA - PH 7.5 (Normal) UA - PROTEIN Negative mg/dL (Normal) URINE UROBILINGN JOSÉ MIGUEL TIMED 2 mg/dL (Normal) UA - BILIRUBIN Negative (Normal) UA - BLOOD Negative (Normal) UA - GLUCOSE Negative (Normal) UA - KETONES Negative mg/dL (Normal) UA - SPECIFIC GRAVITY 1.010 (Normal) 69-Una-253371:09 URINE CELINE CULTURE (JOSÉ MIGUEL COL Comments: PATIENT NOT FASTINGClinical Information: SRC:UR ADD [id number] PERFORMED BY: [facility] Trgkfl5582 [facility] [id number] COUNT) ([id number]) Antimicrobial MIHEAD (Normal) Comments: S = Susceptible; [...] mL (Normal) Urine Final report Culture,Comprehensive (Normal) 35-Aax-181777:56 Urinalysis, Office (36925) UA - BILIRUBIN Negative (Normal) UA - BLOOD Non Hemolyzed Trace (Normal) UA - GLUCOSE Small (Normal) UA - KETONES Small mg/dL (Normal) UA - LEUKOCYTE ESTERASE Small (Normal) UA - NITRITE Positive (Normal) UA - PH 6.0 (Normal) UA - PROTEIN 300 mg/dL (Normal) UA - SPECIFIC GRAVITY 1.020 (Normal) URINE UROBILINGN JOSÉ MIGUEL TIMED 2 mg/dL (Normal) 37-Cjm-94868:12 L/S SPINE,MIN 4 VIEWS Radiology Report See Note (Normal) Comments: Exam Number: [id number] LUMBAR SPINE, FIVE VIEWS. INDICATIONLow back pain. [...] are seen. Reported By: EDSON ROCK M.D. 26-Uzd-58719:39 COMP METABOLIC A/G 1.4 {RATIO} (Normal) Range: [...] Plan of Care Name Dates Details Instructions Nonsmoker : Eprescribed prescriptions (G8553) Indication: Nonsmoker [...] pain, right Knee pain, right : Reviewed Associate Professor Plant Pathology Letter Indication: Knee pain, right Knee pain, [...] : Follow up in 4 months with [facility] for Gen Med Indication: Osteoporosis Osteoporosis : [...] back pain Planned Observations URINE CELINE CULTURE-IDENTIFICATN (40689)Indication: Right flank pain On: 6-Lye-841970:15 Request CALCIFIDIOL (38168) VIT D 25Indication: Osteoporosis On: 24-Zwp-680618:51 Request MICROALBUMIN: CREATININE RATIO (87493) AND (99988)Indication: Hypertension On: 68-Kbg-061488:51 Request METABOLIC PANEL, COMPREHENSIVE (45680)Indication: Hypertension On: 24-Nnv-836262:51 Request LIPID PANEL (37851)Indication: Hypertension On: 34-Kve-941621:51 Request CBC W/AUTO DIFF WBC (20121)Indication: Hypertension On: 25-Pbg-315959:51 Request URINALYSIS, W/ MICRO (43264)Indication: Hypertension On: 87-Jal-044795:10 Request METABOLIC PANEL, COMPREHENSIVE (38801)Indication: Hypertension On: 21-Ceo-600982:10 Request LIPID PANEL (80725)Indication: Hypertension On: 49-Kdc-427888:10 Request CBC WITH MANUAL DIFF (37346)Indication: Hypertension On: 60-Bub-320409:10 Request CBC, PLATELETS & MANUAL DIFF (25707)Indication: Hypertension On: 7-Oxq-488450:12 Request MICROALBUMIN: CREATININE RATIO (16307) AND (08229)Indication: Hypertension On: 61-Efm-232535:43 Request METABOLIC PANEL, COMPREHENSIVE (15682)Indication: Hypertension On: 70-Ink-232762:43 Request LIPID PANEL (74626)Indication: Hypertension On: 65-Jol-410865:43 Request CBC WITH MANUAL DIFF (46313)Indication: Hypertension On: 77-Ojr-954061:43 Request CREATININE CLEARANCE (89712)Indication: Proteinuria On: 95-Dtw-986212:12 Request Comments: now 24 hour urine for Protein (84128)Indication: Proteinuria On: 65-Ybi-664645:12 Request Collagen Crosslinked N-Telopeptide (87649)Indication: Osteoporosis On: 28-Ubc-26730:59 Request Comments: 24 hour urine check now and in six months (approximately) HEPATIC FUNCTION PANEL (62325)Indication: oncomycosis On: 82-Mki-69387:03 Request Comments: monthly x 3 EB ANTIBODY VIRAL CAPSID (44069) N3Ouyuybrpur: Pharyngitis, acute On: 15-Xwd-270317:13 Request EB ANTIBODY NUCLR ANTIGN (86898)Indication: Pharyngitis, acute On: 80-Bct-298825:13 Request CELINE CULTURE-OTHER (43962)Indication: Pharyngitis, acute On: 46-Iiv-82838:48 Request URINALYSIS W/O MICRO (66189)Indication: Hypertension On: 49-Lth-29504:16 Request METABOLIC PANEL, COMPREHENSIVE (59276)Indication: Hypertension On: :16 Request CBC WITH MANUAL DIFF (84426)Indication: Hypertension On: 77-Gqe-02764:16 Request Comments: in six months (approximately) LIPID PANEL (99513)Indication: Hypertension On: 09-Uzf-79828:16 Request CBC (Auto) (25882)Indication: Hypercholesterolemia On: :24 Request Metabolic Panel, Comprehensive (65805)Indication: Hypercholesterolemia On: :24 Request Lipid Panel (61430)Indication: Hypercholesterolemia On: :24 Request Comments: in six months (approximately) Metabolic Panel, Comprehensive (50191)Indication: Hypercholesterolemia On: 30-Qpq-337351:09 Request Lipid Panel (36984)Indication: Hypercholesterolemia On: 69-Vhf-002156:09 Request Comments: 4m Planned Encounters Medical; [facility] Medicare Physical - On: 30-Jul-2018 14:00 [facility] Zoraida [facility]; 3 Month FU - On: 08-Oct-2018 13:45 [facility] Nguyen Santana CNP, CNP, Mary E Planned Procedures SCREENING DIGITAL TOMOSYNTHESIS OF On: 11-Jun-2018 Intent BREAST (43522)By: Nguyen Santana CNP, CNP, Mary E DEXA SCAN AXIAL SKELETON (55233)By: On: 11-Jun-2018 Intent Nguyen Santana CNP, CNP, Mary E Flu Vaccine (Quadrivalent) 93247Aj: On: 11-Jun-2018 Intent Nguyen Santana CNP, CNP, Mary E Aerosol Treatment (95320)By: On: 09-Nov-2017 Intent Zoraida Stewart Comments: Better air exchange after aerosol treatment. Holter Monitor 24 hrsBy: Max GIVENS, On: 15-Sep-2017 Intent Nguyen Skinner CNP Spirometry (24360)By: Max GIVENS, On: 15-Sep-2017 Intent Nguyen Skinner CNP Comments: mod severe restriction ELECTROCARDIOGRAM, COMPLETE (ECG) On: 15-Sep-2017 Intent (11336)By: Nguyen Santana CNP Comments: sinus bradycardia Nguyen GIVENS MAGNETIC RESONANCE IMAGING OF RIGHT On: 05-Jul-2017 Intent KNEE WITHOUT CONTRAST (78282)By: Nguyen Santana CNP, CNP, Mary E Flu Vaccine (Quadrivalent) 44091Jx: On: 14-Jun-2017 Intent Nguyen Santana CNP, CNP, Mary E Comments: Lot:[id number]:03/19/18Dose:0.5mLRoute:IMSite:L DltdGiven By:asVIS signed Ultrasound - LiverBy: Max GIVENS, On: 08-Mar-2017 Intent Nguyen Skinner CNP Comments: REpeat in Jun 2017 CT - Abdomen & Pelvis Stone On: 30-Nov-2016 Intent ProtocolBy: BrittanyNguyen jurado CNP, CNP, Mary E Flu Vaccine (Quadrivalent) 95618Hd: On: 23-Aug-2016 Intent Slarb GOLF BALL WINDERJo Flu Vaccine (Quadrivalent) 59283Zh: On: 15-Sep-2015 Intent Miranda Bueno MD Comments: lot [id number]: 03/31/2016site/route L jean, IMamt 0.5mlVIS and ABN signed when applicableChelseaROMY Kenalog Injection, 10 mgm On: 20-Mar-2015 Intent (J3301)By: Miranda Bueno MD Comments: x4 TDAP VACCINE >7 IM (41006)By: On: 17-Mar-2015 Intent Miranda Bueno MD MRI - Shoulder(s) - RightBy: Ximena On: 17-Mar-2015 Intent Miranda ALEXANDRE ADMINISTRATION OF INFLUENZA VIRUS On: 16-Sep-2014 Intent VACCINE (G0008)By: Miranda Bueno MD Flu Vaccine (Quadrivalent) 94983Em: On: 16-Sep-2014 Intent Miranda Bueno MD ELECTROCARDIOGRAM, COMPLETE (ECG) On: 16-Sep-2014 Intent (57531)By: Miranda Bueno MD Comments: routine for baseline see scanned document of test done to see results reviewed today with patient Aerosol Treatment (62182)By: Max On: 01-Sep-2014 Intent Nguyen GIVENS CNP, Mary E Eprescribed prescriptions (G8553)By: On: 25-Feb-2014 Intent Miranda Bueno MD Kenalog Injection, 10 mgm On: 14-Jan-2014 Intent (J3301)By: Miranda Bueno MD Kenalog Injection, 10 mgm On: 14-Jan-2014 Intent (J3301)By: Miranda Bueno MD Kenalog Injection, 10 mgm On: 14-Jan-2014 Intent (J3301)By: Miranda Bueno MD Kenalog Injection, 10 mgm On: 14-Jan-2014 Intent (J3301)By: Miranda Bueno MD DXA, BONE DENSITY, AXIAL SKELETON On: 14-Jan-2014 Intent (82797)By: Miranda Bueno MD MAMMOGRAM, SCREENING, BOTH BREASTS On: 14-Jan-2014 Intent (56531)By: Miranda Bueno MD Eprescribed prescriptions (G8553)By: On: 14-Jan-2014 Intent Miranda Bueno MD FLU VAC, SPLIT, >3 YEARS, INTRAMUSC On: 06-Sep-2013 Intent (48536)By: PAM Sanz Comments: Lot #:[id number] date:ount given:0.5mlRoute: IMSite given:L DltdGiven by: VIS and ABN signed ADMINISTRATION OF INFLUENZA VIRUS On: 06-Sep-2013 Intent VACCINE (G0008)By: PAM Sanz Breast Screening - BilateralBy: On: 05-Jul-2013 Intent Miranda Bueno MD Eprescribed prescriptions (G8553)By: On: 07-Mar-2013 Intent Shelby Padilla ELECTROCARDIOGRAM, COMPLETE (ECG) On: 14-Dec-2012 Intent (46956)By: Nguyen Santana CNP, CNP, Mary E ADMINISTRATION OF INFLUENZA VIRUS On: 11-Sep-2012 Intent VACCINE (G0008)By: Miranda Bueno MD FLU VAC, SPLIT, >3 YEARS, INTRAMUSC On: 11-Sep-2012 Intent (30475)By: Miranda Bueno MD Eprescribed prescriptions (G8553)By: On: 29-May-2012 Intent Miranda Bueno MD EKG (73012)By: Miranda Bueno MD On: 28-Feb-2012 Intent Comments: see scanned document of test done to see results reviewed today with patient Holter Monitor 24 hrsBy: Ximena ALEXANDRE, On: 28-Feb-2012 Intent Miranda Moncada DXA, BONE DENSITY, AXIAL SKELETON On: 28-Feb-2012 Intent (87942)By: Miranda Bueno MD MAMMOGRAM, SCREENING, BOTH BREASTS On: 28-Feb-2012 Intent (90331)By: Miranda Bueno MD Pulse Oximetry (94325)By: Yvon On: 28-Feb-2012 Intent PAM Ultrasound - AortaBy: Ximena ALEXANDRE, On: 17-Jan-2012 Intent Miranda Moncada Carotid DopplerBy: Miranda Bueno MD On: 17-Jan-2012 Intent Antwan Pulse Oximetry (84848)By: Yvon On: 17-Jan-2012 Intent PAM Spirometry (26734)By: Max GIVENS, On: 10-Jan-2012 Intent Nguyen Skinner CNP Comments: Servere airway obstruction with low vital capacity Aerosol Treatment (78068)By: Max On: 10-Jan-2012 Intent Nguyen GIVENS CNP, Mary E Solu -Medrol Injection, 125 mg On: 03-Jan-2012 Intent (J2930)By: Nguyen Santana CNP Comments: Lot # [id number]-R hip. IMDose 125nggiven by:Nguyen Lane CNP Radiology - ChestBy: Nguyen Santana CNP On: 03-Jan-2012 Intent Nguyen Mata CNP Aerosol Treatment (36310)By: Max On: 03-Jan-2012 Intent Nguyen GIVENS CNP, Mary E Pulse Oximetry (24716)By: Gab BETHEA, On: 03-Jan-2012 Intent Taryn Solu -Medrol Injection, 125 mg On: 30-Dec-2011 Intent (J2930)By: Nguyen Santana CNP Comments: Lot #[id number]/Site-left hipDose-125mggiven by: Marie Alvarado LPN CNP, Mary E Aerosol Treatment (58451)By: Max On: 30-Dec-2011 Intent Nguyen GIVENS CNP, Mary E Solu -Medrol Injection, 125 mg On: 28-Dec-2011 Intent (J2930)By: Nguyen Santana CNP Comments: Lot #[id number]-right hipDose-125 mggiven by: Marie Alvarado LPN CNP, Mary E Aerosol Treatment (09107)By: Max On: 28-Dec-2011 Intent Nguyen GIVENS E Max GIVENS, Mary Pulse Oximetry (07042)By: Max GIVENS, On: 26-Dec-2011 Intent Mary Max GIVENS, Mary Aerosol Treatment (39711)By: Max On: 26-Dec-2011 Intent CHON, Mary Max GIVENS, Mary FLU VAC, SPLIT, >3 YEARS, INTRAMUSC On: 19-Aug-2011 Intent (41568)By: Miranda Bueno MD Comments: refuse Echo CompleteBy: Miranda Bueno MD On: 23-Jun-2011 Intent Nuclear Stress Test/Stress On: 23-Jun-2011 Intent SPECT/TreadmillBy: Miranda Bueno MD EKG (82464)By: Miranda Bueno MD On: 23-Jun-2011 Intent ADMINISTRATION OF PNEUMOCOCCAL On: 15-Dec-2010 Intent VACCINE (G0009)By: Miranda Bueno MD PNEUM VAC ADLT/IMUMNOSPR, SBC/INTRM On: 15-Dec-2010 Intent (28247)By: Miranda Bueno MD MAMMOGRAM, SCREENING, BOTH BREASTS On: 15-Dec-2010 Intent (34090)By: Miranda Bueno MD Eprescribed prescriptions (G8553)By: On: 15-Dec-2010 Intent Miranda Bueno MD Aerosol Treatment (24269)By: Ximena On: 06-Dec-2010 Intent Miranda ALEXANDRE Pulse Oximetry (30061)By: Yvon On: 06-Dec-2010 Intent PAM Spirometry (69348)By: Ximena ALEXANDRE, On: 31-Aug-2010 Intent Miranda Moncada Radiology - ChestBy: Ximena ALEXANDRE, On: 31-Aug-2010 Intent Miranda Moncada Nuclear Stress Test/Stress On: 27-May-2010 Intent SPECT/TreadmillBy: Miranda Bueno MD ELECTROCARDIOGRAM, COMPLETE (ECG) On: 27-May-2010 Intent (74302)By: Miranda Bueno MD Spirometry (62581)By: Ximena ALEXANDRE, On: 27-May-2010 Intent Miranda Moncada Pulse Oximetry (28056)By: Ximena On: 27-May-2010 Intent Miranda ALEXANDRE MRI - BrainBy: Miranda Bueno MD On: 27-May-2010 Intent Aerosol Treatment (43874)By: Feliciano On: 22-Mar-2010 Intent Holly DRUMMOND Pulse Oximetry (16454)By: Ashlee, On: 22-Mar-2010 Intent Stephanie Comments: 95%- spirometry with mod airway obsst CT - Brain/Head (IV Contrast On: 04-Feb-2010 Intent Needed)By: Miranda Bueno MD Comments: attention posterior fossa EKG (54573)By: Miranda Bueno MD On: 01-Jan-2010 Intent DXA, BONE DENSITY, AXIAL SKELETON On: 01-Jan-2010 Intent (17823)By: Miranda Bueno MD MAMMOGRAM, SCREENING, BOTH BREASTS On: 01-Jan-2010 Intent (23722)By: Miranda Bueno MD MRI - Shoulder(s) - RightBy: Ximena On: 01-Jan-2010 Intent Miranda ALEXANDRE Radiology - Shoulder - RightBy: On: 07-Jan-2009 Intent Miranda Bueno MD Holter Monitor 24 hrsBy: Ximena ALEXANDRE, On: 09-Dec-2008 Intent Miranda Moncada ELECTROCARDIOGRAM, COMPLETE (ECG) On: 09-Dec-2008 Intent (11923)By: Miranda Bueno MD Spirometry (44937)By: Ximena ALEXANDRE, On: 09-Dec-2008 Intent Miranda Moncada Pulse Oximetry (74900)By: Ximena On: 09-Dec-2008 Intent Mrianda ALEXANDRE EKG (35668)By: Miranda Bueno MD On: 29-May-2008 Intent Nuclear Stress Test/Stress On: 29-May-2008 Intent SPECT/TreadmillBy: Miranda Bueno MD Pulse Oximetry (78015)By: Daniel ALBA, On: 13-Mar-2008 Intent Gin SPECIMEN HNDLNG/TRNSPRT, OFFC > LAB On: 13-Mar-2008 Intent (77794)By: Gin Sanchez LPN Echo CompleteBy: Miranda Bueno MD On: 29-Nov-2007 Intent Radiology - Lumbar SpineBy: Ximena On: 29-May-2007 Miranda Mayer MD Radiology - Ankle - LeftBy: Ximena On: 28-Jun-2006 Miranda Mayer MD Planned Medications INJECTION, METHYLPREDNISOLONE SODIUM SUCCINATE, UP TO 125 MG Ordered: 28-Dec-2011 Pending Ciesa CONFERENCE MANAGER, Mary Ciesa CONFERENCE MANAGER, Mary INJECTION, METHYLPREDNISOLONE SODIUM SUCCINATE, UP TO 125 MG Ordered: 30-Dec-2011 Pending Ciesa CONFERENCE MANAGER, Mary Ciesa CONFERENCE MANAGER, Mary INJECTION, METHYLPREDNISOLONE SODIUM SUCCINATE, UP TO 125 MG Ordered: 03-Jan-2012 Pending Ciesa CONFERENCE MANAGER, Mary Ciesa CONFERENCE MANAGER, Mary INJECTION, TRIAMCINOLONE ACETONIDE, NOT OTHERWISE SPECIFIED, 10 MG Ordered: 14-Jan-2014 Pending Miranda Bueno MD INJECTION, TRIAMCINOLONE ACETONIDE, NOT OTHERWISE SPECIFIED, 10 MG Ordered: 14-Jan-2014 Pending Miranda Bueno MD INJECTION, TRIAMCINOLONE ACETONIDE, NOT OTHERWISE SPECIFIED, 10 MG Ordered: 14-Jan-2014 Pending Miranda Bueno MD INJECTION, TRIAMCINOLONE ACETONIDE, NOT OTHERWISE SPECIFIED, 10 MG Ordered: 14-Jan-2014 Pending Miranda Bueno MD INJECTION, TRIAMCINOLONE ACETONIDE, NOT OTHERWISE SPECIFIED, 10 MG Ordered: 20-Mar-2015 Pending Miranda Bueno MD Instructions Name Dates Details Nonsmoker : How to access health information [...] Indication: Hypertension Hypertension : DISCONTINUED - URINALYSIS (17377) Indication: Hypertension Hypertension : DISCONTINUED - MICROALBUMIN: CREATININE RATIO (77613) AND (24715) Indication: Hypertension Screening for breast cancer : DISCONTINUED - BILATERAL MAMMOGRAMS (91858) Indication: Screening for breast cancer Osteoporosis : [...] Instructions Indication: Hypertension Encounters Office Visit On: 09-Jul-2018 11:07 Encounter Reason: [...] regimen and considered effective by patient. Aftab hutton sleeps 7 hours per night. Impact of [...] regimen and considered effective by patient. Aftab hutton sleeps 7 hours per night. Impact of [...] using antibiotics. Note for Infection: went to [facility] urgent care last was put [...] Need for immunization against influenza), Mitral Valve Tuemkuhquoitj971.6), Osteoporosis (733.00), Irritable bowel syndrome (564.1), ATHEROSCLEROSIS, AORTIC (440.0), Anxiety (300.00), History of colon polyps, Asthma, intrinsic, mild intermittent, with status asthmaticus, Osteoarthritis, Shoulder pain (719.41), Allergic rhinitis [facility] Office Visit On: 19-Mar-2015 10:42 Encounter Reason: Injections - The medication the patient is here to receive is other (2 cc radha lot# [id number] exp: 01-31-2016 1cc paul lot# [id number] exp right shoulder ).Encounter Diagnosis: Shoulder pain [...] The patient does have durable power of hand candle molder and living will. The patient has noticed nothing from the geriatic depression scale. Other providers contributing to the patient's care are basket person (Dr Silverio) and other: (Dr ridley saw [...] with dosing regimen and considered effective by pat glenys. Patient sleeps 7 hours per night. Impact [...] (733.00), Hypercholesterolemia (272.0), Osteoarthritis (715.96), Mitral Valve Dlezjaakkkrzp196.6), Colon Polyps, History of (V12.72), Asthma,Intrinsic (493.11), [...] incontinence, female, Fever and chills, Mitral Valve Inwyfwqkhbvyz214.6), Colon Polyps, History of (V12.72), Irritable bowel [...] (493.11), Irritable bowel syndrome (564.1), Mitral Valve Hxnlhqzqlvgue195.6), Colon Polyps, History of (V12.72), Osteoporosis (733.00), [...] The patient does have durable power of hand candle molder and living will. The patient has noticed having problems with memory than others. Other providers contributing to the patient's c are are basket person (Dr Silverio) and other: (Dr Rodrigues and [...] (401.0)), Osteoarthritis (715.96), Anxiety (300.00), Mitral Valve Wxzfqmdlfhute784.6), Osteoporosis (733.00), Allergic Rhinitis(477.9), Tremors (781.0), ATHEROSCLEROSIS, [...] from Hypertension (401.0)), Anxiety (300.00), Mitral Valve Lgcdmmqyduarc937.6), Hypercholesterolemia (272.0), Asthma,Intrinsic (493.11), Colon Polyps, History [...] from Hypertension (401.0)), Anxiety (300.00), Mitral Valve Ywcdixlccxrst590.6), Osteoarthritis (715.96), Osteoporosis (733.00), Allergic Rhinitis(477.9), ATHEROSCLEROSIS, [...] (733.00), Hypercholesterolemia (272.0), Asthma,Intrinsic (493.11), Mitral Valve Bqncqyxicnrqi732.6), Sleep disorder (780.50), ATHEROSCLEROSIS, AORTIC (440.0), Anxiety [...] ATHEROSCLEROSIS, AORTIC (440.0), Bradycardia (427.89), Mitral Valve Zyboyldwoedic256.6), Hip bursitis 726.5, Hypercholesterolemia (272.0), Anxiety (300.00), [...] Hypercholesterolemia (272.0), ATHEROSCLEROSIS, AORTIC (440.0), Mitral Valve Usgalugoxjcpd391.6), Hip bursitis 726.5 [facility] Office [...] Anxiety (300.00), Chronic cough (786.2), Mitral Valve Ywdssazhlgltb699.6), Irritable bowel syndrome (564.1), Asthma,Intrinsic (493.11), Colon [...] Nutrition: balanced diet and supplemental vitamins. The sc dical issues the patient is following up for include asthma, cardiac issues, depression, high blood pressure, high cholesterol, osteoarthritis, osteoporosis/osteopenia and other (IBS ).Encounter Diagnosis: Diarrhea (787.91), Osteopenia (733.90), Colon Polyps, History of (V12.72), Osteoarthritis (715.96), Hypertension 401.1 (Renamed from Hypertension (401.0)), Hypercholesterolemia (272.0), Allergic Rhinitis(477.9), Asthma,Intrinsic (493.11), Sleep disorder (780.50), Tremors (781.0), Mitral Valve Fmypvvjkfcsax994.6), Anxiety (300.00), Osteoporosis (733.00), Irritable bowel syndrome [...] (781.0), Dizziness (780.4), Asthma,Intrinsic (493.11), Osteoporosis (733.00), WWV-Latisha [facility] Office Visit On: 27-May-2010 [...] from Hypertension (401.0)), Tremors (781.0), Mitral Valve Bsuecaxdzffdi054.6), WWV-Bare, Shoulder pain (719.41), Headache (784.0), Irritable [...] chills. Note for Cold Symptoms: alot of savannasantino- little wheeze-- she is taking coricidanEncounter Diagnosis: [...] Diagnostic tests include other (Bone density). Date: 01-14-10). Follow up visit with no current symptoms. [...] (427.89), Irritable bowel syndrome (564.1), Mitral Valve Ajgtgufckcrpb282.6), Headache (784.0), GOLDEN-Latisha [facility] Office Visit On: 24-Jun-2009 [...] (427.89), Irritable bowel syndrome (564.1), Mitral Valve Pkfyetcilzofr817.6), Other specified pruritic conditions (698.8), Headache (784.0) [...] (788.1), Low back pain (724.2), Mitral Valve Coegokkmydiid571.6), Osteopenia (733.90), Diarrhea (787.91), Sleep disorder (780.50), [...] (733.90), Acute sinusitis, unspecified (461.9), Mitral Valve Ikkgkhqisnvvn368.6), WWV-Bare, Low back pain (724.2), Sciatica (724.3), [...] were reported. none reported. Note for Sinusitis/: [place] heat over bodyEncounter Diagnosis: ACUTE PHARYNGITIS (462.), [...] (272.0), Osteoarthritis (715.96), Allergic Rhinitis(477.9), Mitral Valve Xcxofcnduqoyw712.6), Low back pain (724.2), Sciatica (724.3), WWV-Bare [...] (845.09), Hypertension (401.0), Hypercholesterolemia (272.0), Mitral Valve Dainzyaxpmamx305.6), Sciatica (724.3), Allergic Rhinitis(477.9), WWV-Bare, Low back [...] (715.96), Hypercholesterolemia (272.0), Osteopenia (733.90), Mitral Valve Qheqtidxmvzai226.6), WWV-Bare, Sciatica (724.3) [facility] Refill [...] 14:27 [facility] End: 27-Jun-2006 14:56 Hayes Lockwood/Jovana Naqvi; glynn guarantor
--- OUTSIDE RECORDS SUMMARY | 2018-10-28 14:17 | XMS RPT_ITS | Continuity of Care Document ---
:1935 Author Organization [facility] Address [address] [facility] [address] [place] [address] Phone Care Team Providers Name Role Phone Nguyen Santana CNP Unavailable Karey Beckman Unavailable Dr. Ren Benavides Unavailable Dayna Byrne Unavailable eCd Rodrigues MD Unavailable Nusrat ALEXANDRE, Romel Spencer [...] should be. MRI done and went to [facility]. 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 wheezing is better. echo, [...] 0 Ordered:14-Mar-2016 Nguyen Santana CNP, CNP, Mary Start : 14-Mar-2016 Active ASTELIN, 137MCG/SPRAY (Nasal Solution) 1-2 sprays each nostril qd (137 MCG/SPRAY) Active CALCIUM + D, 593-799EW-NCZT (Oral Tablet) 1 qd for 0 days Refills: 0 Ordered:24-Jun-2009 Angelique Miller CENTRUM SILVER (Oral Tablet) 1 qd for 0 days Refills: 0 Ordered:24-Jun-2009 Angelique Miller Creon 44782 UNIT Oral Capsule Delayed Release Particles 2 [...] Quantity: 60 {Tablet} Refills: 0 Ordered:11-Jun-2018 PaulaDeisy Start : 11-Jun-2018 Active Losartan Potassium 50 [...] 7 days Quantity: 21 {Tablet} Refills: 0 Ordered:09-Jul-2018 Max GIVENS, Nguyen Dover CNP Start : 09-Jul-2018 Active Zoloft 100 MG Oral Tablet 1 [...] Quantity: 30 {Tablet} Refills: 0 Ordered:19-Dec-2017 Long LUMBER CUTTER, Ariana L Start : 15-Sep-2017 End : [...] Quantity: 1 {Aerosol_Soln} Refills: 3 Ordered:19-Dec-2017 Long LUMBER CUTTER, Ariana L Start : 23-Aug-2016 End : [...] Quantity: 1 {Package} Refills: 0 Ordered:19-Dec-2017 Long LUMBER CUTTER, Ariana L Start : 10-Nov-2017 End : 19-Dec-2017 Inactive ZOSTAVAX, 42992LXW/0.65ML (Subcutaneous Solution Reconstituted) 1 For Solution once [...] Start : 15-Sep-2015 End : 15-Sep-2015 [facility] : 08-Nov-2016 Dis[facility] Oral Capsule 1 (one) Capsule [...] Result: Comments: See Note; NOTES: [facility] [address] [place] [address] OFFICE VISIT Date of Service: 03/31/18 MR#: [id number] Acct: [id number] Name: GAYATRI NAQVI Rep #: [id number] : 1935 Provider: RHODA Cisse Age/Sex: 82/F [place] [facility] Status: Signed Intake Vital Signs03/31/18 Height 5 [...] Medications New: nitrofurantoin monohyd/m-cryst 100 mg (Macrobid) vgtoko614 mg PO Q12H 7 days UTI N39.0 [...] Visit Report Result: Comments: See Note; NOTES: [facility] [address] [place] [address]. [address] [place] [address] OFFICE VISIT Date of Service: 02/28/18 MR#: [id number] Acct: [id number] Name: GAYATRI NAQVI Rep #: [id number] : 1935 Provider: Romel Silverio MD Age/Sex: 82/F [place] [facility] Status: Signed HPI HPI Details: [...] Signature: Date (if applicable) CC: Nguyen Santana OFFICE SECRETARY; Dayna Byrne MD 09-Feb-2018 Urgent Care Visit Report Result: Comments: See Note; NOTES: [facility] [address] [place], [place] [id number] OFFICE VISIT Date of Service: 02/09/18 MR#: [id number] Acct: [id number] Name: GAYATRI NAQVI Rep #: [id number] : 1935 Provider: Anjel DUONG Age/Sex: 82/F Location[place] [facility] Status: Signed Intake Vital Signs02/09/18 Height 5 [...] Result: Comments: See Note; NOTES: [facility] [address] [place] [address] OFFICE VISIT Date of Service: 01/26/18 MR#: [id number] Acct: [id number] Name: GAYATRI NAQVI Rep #: [id number] : 1935 Provider: Anjel DUONG Age/Sex: 82/F Location[place] [facility] Status: Signed Intake Vital Signs01/26/18 Height 5 [...] changes Exam Const General: cooperative, healthy appearing HENME Head: normal to inspection Ears: hearing grossly [...] the above. This note was generated with [employer] dictation software. It may contain incorrect words, [...] Only (Routine) Result: Comments: See Note; NOTES: [facility] Imaging Services [address] [place] [address] Lower Ext Joint Only (Routine) MR#: [id number] Acct: [id number] Name: GAYATRI NAQVI Rep # : [id number] : 1935 F 81 From: Gianluca Camarena MD PCP: Nguyen Santana Status: REG CLI Study: Lower Ext Joint Only (Routine) Date of Exam: 07/13/17 Exam# [id number] Ordering Dr: Nguyen Santana STUDY: MRI RIGHT [...] , Service support , CC: Nguyen Santana Attendant Child Activity: Signed 07-Jul-2017 PT D/C Summary (1) Result: Comments: See Note; NOTES: [facility] [address] [place] [address]. [address] [place] [address] Fax REHABILITATION SERVICES [facility] SUMMARY MR#: [id number] Acct: [id number] Name: GAYATRI NAQVI Rep #: [id number] : 1935 81 From: Levon Jay DPT, OCS, CSCS Referring DrLizzy: Nguyen Santana Status: REG RCR Insurance: [facility] MEDICARE HP - PT D/C Summary It [...] degeneratwed medial knee. MRI is approp. 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 Thank you for the referral of this patient. Sincerely, Levon Jay DPT, OC <Electronically signed by Levon Jay DPT, PITO, CSCS> 07/07/17 0642 CC: Nguyen Santana EBG Signed -Jun-2017 Inital Evaluation (1) - PT Result: Comments: See Note; NOTES: [facility] [address] [place] [address]. [address] [place] [address] Fax REHABILITATION SERVICES INITIAL EVALUATION MR#: [id number] Acct: [id number] Name: GAYATRI NAQVI Rep #: [id number] [...] Discharge Instruction Result: Comments: See Note; NOTES: [facility] Medical Records Department [address] [place] [address] Discharge Instruction 06/06/17 2317 MR#: [id number] Acct: [id number] Name: MONET NAQVI Rep #: [id number] : 1935 81 From: Po Herrera MD [...] your Primary Care Provider. Call [facility] ([phone]) or rep ort to the closest Emergency Room. Call 911 if necessary. 06/06/17 2318 <Electronically signed by Po Herrera MD> Date Po Herrera MD Cosigner Signature (If Indicated): Date CC: Nguyen Max 06-Jun-2017 Emergency Department Summary Result: Comments: See Note; NOTES: [facility] Medical Records Department [address] [place] [address] Emergency Department Summary 06/06/17 2312 MR#: [id number] Acct: [id number] Name: GAYATRI NAQVI Rep #: [id number] : 1935 81 From: Po Herrera MD [...] contact your Primary Care Provider. Call [facility] ([phone]) or report to the closest Emergency Room. Call 911 if necessary. 06/06/17 0817 <Electronically signed by Po Herrera MD> Date Po Herrera MD Cosigner Signature (If Indicated): Date CC: Nguyen Brittanyadrien 06-Jun-2017 Knee 4 or More Views Result: Comments: See Note; NOTES: [facility] Imaging Services [address] [place] [address] Knee 4 or More Views MR#: [id number] Acct: [id number] Name: GAYATRI NAQVI Rep #: [id number] : 1935 F 81 From: Stephanie Diaz MD PCP: Nguyen Santana Status: REG ER Study: Knee 4 or More Views Date of Exam: 06/06/17 Exam# [id number] Ordering Dr: Po Herrera MD STUDY: X-RAY [...] Stephanie Diaz MD at 23:01 EDT Tel [phone], Service support , CC: Nguyen Santana; Po Herrera MD Attendant Child Activity: Signed 06-Jun-2017 Liver Result: Comments: See Note; NOTES: [facility] Imaging Services [address] [place] [address] Liver MR#: [id number] Acct: [id number] Name: DRISSGAYATRI E Rep #: [id number] : [birth year] F 81 From: Rogelio Kumar MD PCP: Nguyen Santana Status: REG CLI Study: Liver Date of Exam: 06/06/17 Exam# [id number] Ordering Dr: Nguyen Santana STUDY: ABDOMINAL ULTRASOUND [...] Kumar MD at 11:47 EDT Tel [phone], Service support , CC: Nguyen Santana Attendant Child Activity: Signed 27-Mar-2017 Echocardiogram Complete Result: Comments: See Note; NOTES: [facility] Cardiovascular Services [address] [place] [address] Echo Complete 03/24/17 0822 MR#: [id number] Acct: [id number] Name: GAYATRI NAQVI ep #: [id number] : 1935 81 From: Romel Silverio MD Attending Dr: Romel Silverio MD Status: REG CLI Ordering Dr: Romel Silverio MD Date: 03/24/17 Location: [facility] Sex: F C Admitted: Reason For Study: [...] Dictated: 03/24/17 0 822 Date Transcribed: 03/24/171832 Attendant Child Activity: Signed 24-Mar-2017 Nuclear Stress Test - Treadmil Result: Comments: See Note; NOTES: [facility] Imaging Services [address] [place] [address] Verdana 4d Nuclear Stress Test - Treadmpr MR#: [id number] Acct: [id number] Name: JULIUS NAQVI Rep #: [id number] : 1935 81 From: Romel Silverio MD [...] 71%. Romel Silverio MD T: NTS JOB: [id number] 03/25/17 0927 <Electronically signed by Romel Silverio MD> Date Romel Silverio MD CC: Nguyen Santana; Romel Silverio MD Date Dictated: 03/24/17 1146 Date Transcribed: 03/24/17 1146 Attendant Child Activity: Signed 03-Mar-2017 Chest PA and Lateral Result: Comments: See Note; NOTES: [facility] Imaging Services [address] [place] [address] Verdana 4d Chest PA and Lateral MR#: [id number] Acct: [id number] Name: GAYATRI NAQVI Rep #: [id number] : 1935 F 81 From: Rogelio Kumar MD PCP: Nguyen Santana Status: REG CLI Study: Chest PA and Lateral Date of Exam: 03/03/17 Exam# [id number] Ordering Dr: Romel Silverio MD STUDY : [...] Kumar MD at 13:42 EDT Tel [phone], Service support , CC: Nguyen Santana; Romel Silverio MD Attendant Child Activity: Signed 12-Dec-2016 Abdomen/Pelvis without Cont Result: Comments: See Note; NOTES: [facility] Imaging Services [address] [place] [address] Verdana 4d Abdomen/Pelvis without Cont MR#: [id number] Acct: [id number] Name: GAYATRI NAQVI Rep #: [id number] : 1935 F 81 From: Philipp Moody MD PCP: Nguyen Santana Status: REG CLI Study: Abdomen/Pelvis without Cont Date of Exam: 12/12/16 Exam# [id number] Ordering Dr: Nguyen Santana JULIANN DY: CT [...] of the osseous structures. ORD ER #: [id number] CT/Abdomen/Pelvis without Cont IMPRESSION: Fatty liver. There are multiple colonic diverticula consistent with diverticulosis. 21mm hypodense lesion in the inferior right lobe of the l iver. This is incompletely evaluated and on contrast enhanced study. Other findings as above. Electronically Signed: Philipp Moody MD at 22:28 EDT , Service support , CC: Nguyen Santana Attendant Child Activity: Signed 22-Sep-2016 Upper Ext Joint Only(Routine) Result: Comments: See Note; NOTES: [facility] Imaging Services [address] [place] [address] Verdana 4d Upper Ext Joint Only(Routine) MR#: [id number] Acct: [id number] Name: BERNICE NAQVI JOSEPH Briones Rep #: [id number] : 1935 F 80 From: Emmanuel Guido MD PCP: Nguyen Santana Status: REG CLI Study: Upper Ext Joint Only(Routine) Date of Exam: 09/22/16 Exam# [id number] Ordering Dr: Adilene Byrd DO STUDY: MRI [...] MD at 17:06 EST , Service support [phone], CC: Nguyen Santana; Sonia Byrd DO Attendant Child Activity: Signed 08-Sep-2016 Shoulder min 2 Views Result: Comments: See Note; NOTES: [facility] Imaging Services [address] [place] [address] Verdana 4d Shoulder min 2 Views MR#: [id number] Acct: [id number] Name: GAYATRI NAQVI Rep #: [id number] : 1935 F 80 From: Emmanuel Guido MD PCP: Nguyen Santana Status: REG CLI Study: Shoulder min 2 Views Date of Exam: 09/08/16 Exam# [id number] Ordering Dr: Sonia Byrd DO STUDY: X-RA [...] at 11:28 EST Tel , Service support [phone], CC: Nguyen Santana; Sonia Byrd DO Attendant Child Activity: Signed 06-Sep-2016 Dexa Bone Density Study (HP) Result: Comments: See Note; NOTES: [facility] Imaging Services [address] [place] [address] Verdana 4d Dexa Bone Density Study (HP) MR#: [id number] Acct: [id number] Name: LIDA NAQVI Rep #: [id number] : 1935 F 80 From: Rogelio Kumar MD PCP: Nguyen Santana Status: REG CLI Study: Dexa Bone Density Study (HP) Date of Exam: 09/06/16 Exam# [id number] Ordering Dr: Joi Santana STUDY: DUAL ENERGY [...] Rogelio Kumar MD at 13:43 EST Tel [phone], Service support [phone], CC: Nguyen Santana Attendant Child Activity: Signed 24-May-2016 PT D/C Summary (1) Result: Comments: See Note; NOTES: [facility] [address] [place] [address]. [address] [place] [address] Fax REHABILITATION SERVICES [facility] SUMMARY MR#: [id number] Acct: [id number] Name: GAYATRI NAQVI Rep #: [id number] [...] please feel free to call me at [phone]. Thank you for the referral of this patient. Sincerely, Norma Thomas <Electronically signed by Cert. BALDOMERO Osborne PTT> 05/24/16 9702 CC: Miranda Bueno MD ; Edson Franks DO TAPAN Signed 18-Apr-2016 Re-Evaluation - PT (1) Result: Comments: See Note; NOTES: [facility] Physical Therapy [address] [place] [address] Fax REEVALUATION / ME DICARE RECERTIFICATION [place] 4d PHYSICAL THERAPY MR#: [id number] Acct: [id number] Name: GAYATRI NAQVI Rep #: [id number] : 1935 80 From: Norma Thomas PT, [...] do not hesitate to contact me at [phone] by phone or if you have que stions or concerns regarding this new plan of care! Sincerely, oNrma Thomas <Electronically signed by Norma Thomas PT, Cert. MDT> 04/18/16 4395 CC: Miranda Bueno MD; Edson mead DO TAPAN Signed For Medicare only, by signing this I certify the plan of care. Physicians Signature Date 16-Mar-2016 Inital Evaluation (1) - PT Result: Comments: See Note; NOTES: [facility] [address] [place] [address]. [address] [place] [address] Fax REHABILITATION SE EMILY INITIAL EVALUATION MR#: [id number] Acct: [id number] Name: GAYATRI NAQVI Rep #: [id number] : 1935 80 From: Norma Thomas PT, [...] to be FAXED BACK to us at [phone] for Medicare purposes. Please let me know if there are questions or concerns regarding this plan of care. Physician Signature:__ Date: <Electronically signed by Norma Thomas PT, Cert. MDT> 03/16/16 1323 CC: Miranda Bueno MD; Edson Evon DRUMMOND TAPAN Signed For Medicare only, by signing this I certify the plan of care. Physicians Signature Date 06-Mar-2016 Discharge Instruction Result: Comments: See Note; NOTES: [facility] Medical Records Department [address] [facility] [place] [address] Discharge Instruction 03/04/161918 MR#: [id number] Acct: [id number] Name: GAYATRI NAQVI Rep #: [id number] : 1935 80 From: Pastor Mccain MD PCP: Miarnda Bueno MD Status: DEP ER ED Disposition [...] problems, contact your doctor. Call [facility] ([phone]) or report to the closest Emergency Room. Call 911 if necessary. 03/06/16 0704 <Electronical ly signed by Pastor Mccain MD> Date Pastor Mccain MD Cosigner Signature (If Indicated): Date CC: Miranda Bueno MD 06-Mar-2016 Emergency Department Summary Result: Comments: See Note; NOTES: [facility] Medical Records Department [address] [place] [address] Emergency Department Summary MR#: [id number] Acct: [id number] Name: GAYATRI NAQVI Rep #: [id number] : 1935 80 From: Pastor Mccain MD [...] Miranda Alba MD T: REYES JEWELL B: [id number] 03/06/16 0704 <Electronically signed by Pastor Mccain MD> Date Pastor Mccain MD Cosigner Signature (If Indicated): Date CC: Miranda Bueno MD; Wesley Alba MD Date Dictated: 03/05/161121 Date Transcribed: 03/05/161121 Attendant Child Activity: Signed 04-Mar-2016 Shoulder One View Result: Comments: See Note; NOTES: [facility] Imaging Services [address] [place] [address] Verdana 4d Shoulder One View MR#: [id number] Acct: [id number] Name: STEPHANIE NAQVI Rep #: [id number] : 1935 F 80 From: Bernadette Daniel MD PCP: Miranda Bueno MD Status: REG ER Study: Shoulder One View Date of Exam: 03/04/16 Exam# [id number] Ordering Dr: Pastor Mccain MD STUDY: X-RAY [...] MD at 19:00 EDT , Service support [phone], RAD/Shoulder One View IMPRESSION: Anatomic relocation of the left glenohume ral joint without fracture deformity. Electronically Signed: Bernadette Daniel MD at 19:00 EDT , Service support [phone], CC: Miranda Xiao i, MD; Pastor Mccain MD Attendant Child Activity: Signed 04-Mar-2016 Hip 2-3 Views with Pelvis Result: Comments: See Note; NOTES: [facility] Imaging Services [address] [place] [address] Verda 4d Hip 2-3 Views with Pelvis MR#: [id number] Acct: [id number] Name: GAYARTI ROSA Rep #: [id number] : 1935 F 80 From: Bernadette Daniel MD PCP: Miranda Bueno MD Status: REG ER Study: Hip 2-3 Views with Pelvis Date of Exam: 03/04/16 Exam# [id number] Ordering Dr: Pastor Mccain MD STUDY: X-RAY [...] MD at 17:17 EDT , Service support [phone], RAD/Hip 2-3 Views with Pelvis IMPRESSION: Normal x-ray examination of the pelvis and hip. Chad quarles Signed: Bernadette Daniel MD at 17:17 EDT , Service support [phone], CC: Mrianda Bueno MD; Pastor Mccain MD Attendant Child Activity: Signed 04-Mar-2016 Shoulder min 2 Views Result: Comments: See Note; NOTES: [facility] Imaging Services [address] [place] [address] Verda 4d Shoulder min 2 Views MR#: [id number] Acct: [id number] Name: Mayra NAQVI Rep #: [id number] : 1935 F 80 From: Bernadette Daniel MD PCP: Miranda Bueno MD Status: REG ER Study: Shoulder min 2 Views Date of Exam: 03/04/16 Exam# [id number] Ordering Dr: Zach Mccain MD STUDY: X-RAY [...] MD at 17:24 EDT , Service support [phone], Fax RAD/Shoulder min 2 Views IMPRESSION: Complete anterior dislocation of the left shoulder without identified fracture. Electronically Signed: Bernadette Daniel MD at 17:24 EDT , Service support [phone], CC: Miranda Bueno MD; Pastor Mccain MD Attendant Child Activity: Signed 04-Mar-2016 Wrist min 3 Views Result: Comments: See Note; NOTES: [facility] Imaging Services [address] [place] [address] Verdana 4d Wrist min 3 Views MR#: [id number] Acct: [id number] Name: STEPHANIE NAQVI Rep #: [id number] : 1935 F 80 From: Bernadette Daniel MD PCP: Miranda Bueno MD Status: REG ER Study: Wrist min 3 Views Date of Exam: 03/04/16 Exam# [id number] Ordering Dr: Pastor Mccain MD STUDY: X-RAY [...] at 17:12 EDT , Se rvice support [phone], RAD/Wrist min 3 Views IMPRESSION: Negative for fracture or dislocation. Electronically Signed: Bernadette Daniel MD at 17:12 EDT , Service support [phone], CC: Miranda Bueno MD; Pastor Mccain MD Attendant Child Activity: Signed 24-Mar-2015 Upper Ext Joint Only(Routine) Result: Comments: See Note; NOTES: [facility] Imaging Services [address] [place] [address] MRI Report MR#: [id number] Acct: [id number] Name: GAYATRI NAQVI Rep #: [id number] : 1935 F 79 From: Gianluca Camarena MD PCP: Miranda Bueno MD Status: REG CLI Study: Upper Ext Joint Only(Routine) Date of Exam: 03/24/15 Exam# [id number] Ordering Dr: Miranda Bueno MD STUDY: MRI [...] at 15:58 EDT Tel , Service support [phone], CC: Miranda Bueno MD Attendant Child Activity: Signed 18-Oct-2014 Emergency Department Summary Result: Comments: See Note; NOTES: [facility] Medical Records Department [address] [place] [address] Emergency Department Summary MR#: [id number] Acct: [id number] Name: Mayra NAQVI Rep #: [id number] : 1935 78 From: Stephanie Andersen MD [...] injury. Stephanie Andersen MD T: NTS JOB: [id number] 10/18/14 160 6 <Electronically signed by Stephanie Andersen MD> Date Stephanie Andersen MD CC: Miranda Bueno MD Date Dictated: 10/18/14 1050 Date Transcribed: 10/18/14 1050 Attendant Child Activity: Signed 18-Oct-2014 Discharge Instruction Result: Comments: See Note; NOTES: [facility] Medical Records Department [address] [place] [address] Discharge Instruction 10/18/14 1040 MR#: [id number] Acct: [id number] Name: GAYATRI NAQVI Rep #: [id number] : 1935 78 From: Stephanie Andersen MD [...] . 10/18/14 1042 <Electronically signed by Stephanie Adnersen MD> Date Stephanie Andersen MD Cosigner Signature (If Indicated): Date CC: Miranda Bueno MD 18-Oct-2014 Brain/Head without Contrast Result: Comments: See Note; NOTES: [facility] Imaging Services [address] [place] [address] CAT Scan Report MR#: [id number] Acct: [id number] Name: GAYATRI NAQVI Rep #: [id number] : 1935 F 78 From: Jacklyn Vázquez MD PCP: Miranda Bueno MD Status: REG ER Study: Brain/Head without Contrast Date of Exam: 10/18/14 Exam# [id number] Ordering Dr: Stephanie Andersen MD STUDY: C [...] MD at 10:34 EST , Service support [phone], CC: Miranda Bueno MD; Stephanie Andersen MD Attendant Child Activity: Signed 18-Oct-2014 Spine Cervical without Contras Result: Comments: See Note; NOTES: [facility] Imaging Services [address] [place] [address] CAT Scan Report MR#: [id number] Acct: [id number] Name: GAYATRI NAQVI Rep #: [id number] : 1935 F 78 From: Jacklyn Vázquez MD PCP: Miranda Bueno MD Status: REG ER Study: Spine Cervical without Contras Date of Exam: 10/18/14 Exam# [id number] Ordering Dr: Stephanie Andersen MD STUDY : [...] MD at 10:45 EST , Service support [phone], CC: Miranda Bueno MD ; Stephanie Andersen MD Attendant Child Activity: Signed 13-Aug-2014 Bilat Scrn Digital & CAD Result: Comments: See Note; NOTES: [facility] Imaging Services [address] [place] [address] Breast Imaging Report MR#: [id number] Acct: [id number] Name: GAYATRI NAQVI Rep #: [id number] : 1935 F 78 From: Rogelio Kumar MD PCP: Miranda Bueno MD Status: REG CLI Exam# [id number] Ordering Dr: Miranda Bueno MD MAMMOGRAPHY - [...] Kumar MD at 10: 39 EST Tel [phone], Service support [phone], CC: Miranda Bueno MD Attendant Child Activity: Signed 13-Aug-2014 Dexa Bone Density Study (HP) Result: Comments: See Note; NOTES: [facility] Imaging Services [address] [place] [address] Bone Density Report MR#: [id number] Acct: [id number] Name: GAYATRI NAQVI Rep #: [id number] : 1935 F 78 From: Rogelio Kumar MD PCP: Miranda Bueno MD Status: REG CLI Study: Dexa Bone Density Study (HP) Date of Exam: 08/13/14 Exam# [id number] Ordering Dr: Miranda Bueno MD STUDY: DUAL [...] Rogelio Kumar MD at 13:55 EST Tel [phone], Service support [phone], CC: Miranda Bueno MD Attendant Child Activity: Signed 12-Aug-2013 Bilat Scrn Digital & CAD Result: Comments: See Note; NOTES: [facility] Imaging Services [address] [place] [address] Breast Imaging Report MR#: [id number] Acct: [id number] Name: GAYATRI NAQVI Rep #: [id number] : 1935 F 77 From: Rogelio Kumar MD PCP: Miranda Bueno MD Status: REG CLI Exam# [id number] Ordering Dr: Miranda Bueno MD MAMMOGRAPHY - [...] August 12 013 at 11:28:57 AM EST [phone] Electronically Signed GP/GP If you are the referring physician and would like to consult with the radiologist who provided this interpretation, please contact Rogelio Kumar M.D. at [phone]. If this radiologist is unavailable, you will be directed to another radiologist to assist. If you are a patient with a question regarding this report, pleas e contact your referring physician directly. Professional Interpretation Provided By: [employer], Phone , These documents contain legally protected [...] of these documents. CC: Miranda Bueno MD Attendant Child Activity: Signed Immunization Name Dates Details Zoster (shingles) [...] Area Calculated 1.66 m2 :23 Comments: visual wnkqnv-ZM-29/40, OS-20/40, B/L-20/40 Temperature 98.1 f Comments: Method: [...] Comprehensive Comments: PATIENT NOT FASTINGPERFORMED BY: [facility] [id number] [facility] [id number] ([id number]) ALT (SGPT) 28 [iU]/L (Normal) Range: 0-32 [...] 90 mg/dL (Normal) Range: 65-99 :57 TSH (82082) Comments: PATIENT NOT FASTINGPERFORMED BY: [facility] [id number] [facility] [id number] TSH 1.450 {uIU/mL} (Normal) Range: 0.450-4.500 24-Jrl-462261:57 CBC, Platelets & Auto Diff Comments: PATIENT NOT FASTINGPERFORMED BY: Project InsidersHackettstown Medical CenterGnelyd5258 [facility] [id number] (75689) Immature Grans (Abs) 0.0 {x10E3/uL} (Normal) Range: [...] 3.77-5.28 WBC 7.8 {x10E3/uL} (Normal) Range: 3.4-10.8 33-Arj-237396:00 URINE CELINE CULTURE-IDENTIFICATN Comments: PATIENT NOT FASTINGPERFORMED BY: [facility] Ugnnow1422 [facility] [id number] Information: SRC:UC (88344) Result 1 MUG (Normal) Comments: Mixed urogenital flora10,000-25,000 colony forming units per mL Urine Final report (Normal) Culture,Comprehensive 65-Tgx-633922:21 Urinalysis, Office (56826) UA - LEUKOCYTE ESTERASE Negative (Normal) UA - NITRITE Negative (Normal) URINE UROBILINGN JOSÉ MIGUEL TIMED Normal mg/dL (Normal) UA - PROTEIN Negative mg/dL (Normal) UA - PH 7 (Normal) UA - BLOOD Negative (Normal) UA - SPECIFIC GRAVITY 1.010 (Normal) UA - KETONES Moderate mg/dL (Normal) UA - BILIRUBIN Negative (Normal) UA - GLUCOSE Negative (Normal) 73-Fbc-03097:30 Culture, Urine Comments: [facility] Whrvnxugpv3006 [facility], [address] CUUR See Note (Normal) Comments: Urine CultureORGANISM 1: Mixed Gram Positive OrganismsColony Count 11,000-25,000MIX CULTURE Mixed contaminants. Submit a new specimen if indicated. 23-Bzw-49341:30 Urinalysis, Complete Comments: How was Urine Obtained? [facility] [address]bmbrwuixb[address] [place], [place], [id number] MUCUS, URINE 0 SEEN {/hpf} (Normal) BACTERIA [...] (Normal) CLARITY Clear (Normal) COLOR Yellow (Normal) 63-Hkl-878462:39 Culture, Urine Comments: [facility] [address] [place], [place], [phone] CUUR See Note (Normal) Comments: Urine CultureBelow infection level. ORGANISM 1: Mixed Gram Positive OrganismsColony Count 1000-10,000 10-Hnd-681629:39 Urinalysis, Complete Comments: How was Urine Obtained? PLATFORM MATERIAL HANDLING SUPERVISOR TO SPECIFYTrinity Health System West Campus [address]ut[address] [place], [address] MUCUS, URINE 0 SEEN {/hpf} [...] CLARITY Clear (Normal) COLOR Yellow (Normal) :05 QMBDY-ORKRLWHERFT-OHNNU (29864) Comments: PATIENT WAS FASTINGPERFORMED BY: [employer] [facility] [id number] AFP, Serum, Tumor Marker 3.0 ng/mL (Normal) Range: 0.0-8.3 Comments: Kristi ECLIA methodology :05 TSH (THYROID STIMULATING Comments: PATIENT WAS FASTINGPERFORMED BY: [employer] [facility] [id number] HORMONE) (38672) TSH 2.890 {uIU/mL} (Normal) Range: 0.450-4.500 :05 LIPID PANEL (92313) Comments: PATIENT WAS FASTINGPERFORMED BY: [employer] [facility] [id number] LDL/HDL Ratio 1.9 {ratio_units} (Normal) Range: 0.0-3.2 [...] Auto Diff Comments: PATIENT WAS FASTINGPERFORMED BY: tocario Cjcxlt5012 [facility] [id number] (88145) Immature Grans (Abs) 0.0 {x10E3/uL} (Normal) Range: [...] 3.77-5.28 WBC 6.4 {x10E3/uL} (Normal) Range: 3.4-10.8 31-Ccd-69224:05 Metabolic Panel, Comprehensive Comments: PATIENT WAS FASTINGPERFORMED BY: [facility] Uqjczn9190 [facility] [id number] (85139) ALT (SGPT) 31 [iU]/L (Normal) Range: 0-32 [...] mg/dL (Normal) Range: 65-99 :49 Rapid Flu (98673 x 2) Influenza A Ag Negative (Normal) :59 THROAT CULTURE (97262) Comments: PATIENT NOT FASTINGPERFORMED BY: [employer] Euaslr7663 Milestone SystemsAt[facility] [id number] Information: SRC:TH Result 1 RRF (Normal) Comments: Routine respiratory graeme Upper Respiratory Culture Final report (Normal) :54 Rapid Strep Test, Office (71581) Rapid Strep Test, Office Negative (Normal) :47 HgA1C , Office (33081) HgA1C , Office 5.8 % (Normal) Range: 4.6 - 7.1 :53 HEPATITIS PANEL (73324) Comments: today; PATIENT NOT FASTINGPERFORMED BY: [employer] PhotonicsCoHackettstown Medical CenterTrisol5363 [facility] [id number] Hep C Virus Ab <0.1 {s/co_ratio} (Normal) Range: 0.0-0.9 Comments: Negative: < 0.8 Indeterminate: 0.8 - 0.9 Positive: > 0.9 . The CDC recommends that a positive HCV antibody result be followed up with a HCV Nucleic Acid Amplification test (110522). Hep B Core Ab, IgM Negative (Normal) HBsAg Screen Negative (Normal) Hep A Ab, IgM Negative (Normal) :53 HEPATIC FUNCTION PANEL Comments: today; PATIENT NOT FASTINGPERFORMED BY: [facility]6370 [facility] [id number] (22925) ALT (SGPT) 29 [iU]/L (Normal) Range: 0-32 AST (SGOT) 30 [iU]/L (Normal) Range: 0-40 Alkaline Phosphatase, S 53 [iU]/L (Normal) Range: 39-117 Bilirubin, Direct 0.18 mg/dL (Normal) Range: 0.00-0.40 Bilirubin, Total 0.5 mg/dL (Normal) Range: 0.0-1.2 Albumin, Serum 4.7 g/dL (Normal) Range: 3.5-4.7 Protein, Total, Serum 6.5 g/dL (Normal) Range: 6.0-8.5 :53 RKKNT-DFEVPDZTIDP-CZGBA (12663) Comments: today; PATIENT NOT FASTINGPERFORMED BY: [facility]6370 [facility] [id number] AFP, Serum, Tumor Marker 3.0 ng/mL (Normal) Range: 0.0-8.3 Comments: Kristi ECLIA methodology 48-Tbc-625223:55 Basic Metabolic Profile (BMP) Comments: Order Date: 03/01/17Order Info: 0667-1 - *BMPOrder Info: 3026-2 - *T4 (Total)Comments: Reason:Order Info: 3016-3 - *TSHComments: Reason:[facility] Vbidjsapsx7936 [facility] [place]. [place], [place], [address] ; cardio GAP 6 (Normal) Range: 5-15 [...] 7-18 GLU 96 mg/dL (Normal) Range: 70-110 46-Lhp-295833:55 CBC-Complete Blood Cnt No Diff Comments: Order Date: 03/01/17Order Info: [id number] - *CBC without DiffComments: Reason:[facility] [address]ehzhy[address] [place], [place], [id number] MPV 9.6 fL (Normal) Range: 6.2-12.0 PLT [...] 4.2-5.4 WBC 7.2 K/mm3 (Normal) Range: 4.4-11.0 44-Ksy-502222:55 T4 Total, Thyroxin Comments: Order Date: 03/01/17Order Info: 0667-1 - *BMPOrder Info: 3026-2 - *T4 (Total)Comments: Reason:Order Info: 3016-3 - *TSHComments: Reason:[facility] [address] [place], [address] T4 THYROXIN 9.3 ug/dL (Normal) Range: 4.8-13.9 73-Mhv-658024:55 Thyroid Stim Hormone (TSH) Comments: Order Date: 03/01/17Order Info: [id number] - *BMPOrder Info: 3026-2 - *T4 (Total)Comments: Reason:Order Info: 3016-3 - *TSHComments: Reason:[facility] [address] [place], [address] TSH 1.33 {uIU/mL} (Normal) Range: 0.358-3.74 9-Ihy-786137:55 Urinalysis, Office (54033) UA - LEUKOCYTE ESTERASE Negative (Normal) UA - NITRITE Negative (Normal) URINE UROBILINGN JOSÉ MIGUEL TIMED Normal mg/dL (Normal) UA - PROTEIN Negative mg/dL (Normal) UA - PH 7.5 (Normal) UA - BLOOD Negative (Normal) UA - SPECIFIC GRAVITY 1.020 (Normal) UA - KETONES Negative mg/dL (Normal) UA - BILIRUBIN Negative (Normal) UA - GLUCOSE Negative (Normal) 4-Dvi-121461:17 URINE CELINE CULTURE-JOSÉ MIGUEL COL Comments: PATIENT NOT FASTINGPERFORMED BY: TASS70 [facility] [id number] Information: SRC:UC COUNT (76071) Result 1 MUG (Normal) Comments: Mixed urogenital flora25,000-50,000 colony forming units per mL Urine Final report (Normal) Culture,Comprehensive 1-Cyz-023871:05 Urinalysis, Office (75470) UA - LEUKOCYTE ESTERASE Small (Normal) UA - NITRITE Negative (Normal) URINE UROBILINGN JOSÉ MIGUEL TIMED Normal mg/dL (Normal) UA - PROTEIN Negative mg/dL (Normal) UA - PH 7 (Normal) UA - BLOOD Negative (Normal) UA - SPECIFIC GRAVITY 1.015 (Normal) UA - KETONES Small mg/dL (Normal) UA - BILIRUBIN Small (Normal) UA - GLUCOSE Negative (Normal) 07-Nov-20160:00 Culture, Urine Comments: [facility] [address] [place], [place], [id number] CUUR See Note (Normal) Comments: Urine CultureCulture exhibits no growth. 58-Kon-16317:45 TSH (17980) Comments: PATIENT WAS FASTINGPERFORMED BY: TASS70 [facility] [id number] TSH 2.950 {uIU/mL} (Normal) Range: 0.450-4.500 :45 Lipid Panel (75356) Comments: PATIENT WAS FASTINGPERFORMED BY: LabCoHackettstown Medical CenterKyiiks1360 [facility] [id number]; OV 08/23 LDL/HDL Ratio 2.2 {ratio_units} (Normal) [...] Diff Comments: PATIENT WAS FASTINGPERFORMED BY: [facility] Vaysht4251 [facility] [id number] (79165) Immature Grans (Abs) 0.0 {x10E3/uL} (Normal) Range: [...] Comments: PATIENT WAS FASTINGPERFORMED BY: LabCoHackettstown Medical CenterPodegu5201 [facility] [id number] (34601) ALT (SGPT) 30 [iU]/L (Normal) Range: 0-32 [...] Glucose, Serum 99 mg/dL (Normal) Range: 65-99 3-Pou-853049:00 MICROALBUMIN: CREATININE RATIO Comments: PATIENT WAS FASTINGPERFORMED BY: [employer] Kutosu8875 [facility] [id number] (78803) AND (05148) Microalb/Creat Ratio 9.2 {mg/g_creat} (Normal) Range: 0.0-30.0 Microalbumin, Urine 28.4 ug/mL (Normal) Creatinine, Urine 307.2 mg/dL (Normal) :00 METABOLIC PANEL, COMPREHENSIVE Comments: PATIENT WAS FASTINGPERFORMED BY: [employer]6370 [facility] SystemsAt[facility] [id number] (27597) ALT (SGPT) 23 [iU]/L (Normal) Range: 0-32 [...] Glucose, Serum 92 mg/dL (Normal) Range: 65-99 3-Cfg-017705:00 LIPID PANEL (43879) Comments: PATIENT WAS FASTINGPERFORMED BY: LabDuane L. Waters Hospital6370 [facility] [id number]; fu 6-13 with [facility] LDL/HDL Ratio 1.9 {ratio_units} (Normal) Range: 0.0-3.2 [...] Cholesterol, Total 211 mg/dL (Abnormal) Range: 100-199 5-Nrx-105461:00 CBC with auto diff Comments: PATIENT WAS FASTINGPERFORMED BY: NtiretyDuane L. Waters Hospital6370 [facility] [id number] Information: [id number] (25417) Immature Grans (Abs) 0.0 {x10E3/uL} (Normal) Range: [...] 3.77-5.28 WBC 5.5 {x10E3/uL} (Normal) Range: 3.4-10.8 64-Hug-643392:55 Urinalysis, Office (62581) UA - LEUKOCYTE ESTERASE Small (Normal) UA [...] Microscopic Examination Comments: PATIENT WAS FASTINGPERFORMED BY: achvr [place] [id number] Bacteria Moderate (Abnormal) Mucus Threads Present (Normal) Epithelial Cells (non renal) >10 {/hpf} (Abnormal) Range: 0 - 10 RBC 0-2 {/hpf} (Normal) Range: 0 - 2 WBC 11-30 {/hpf} (Abnormal) Range: 0 - 5 :10 CALCIFIDIOL (53813) VIT D 25 Comments: PATIENT WAS FASTINGPERFORMED BY: MicroPower TechnologiesCaverna Memorial Hospital [id number] Vitamin D, 25-Hydroxy 30.0 ng/mL (Normal) Range: 30.0-100.0 Comments: Vitamin D deficiency has been defined by the [place] ofMedicine and an Endocrine Society practice guideline as alevel of serum 25-OH vitamin D less than 20 ng/mL (1,2).The Endocrine Society went on to further define vitamin Dinsufficiency as a level between 21 and 29 ng/mL (2).1. IOM ([place] of Medicine). 2010. Dietary reference intakes for calcium and D. [place]: The National Academies Press.2. Barb MF, Malachi BEYER, Bj MOREIRA, et al. Evaluation, treatment, and prevention of vitamin D deficiency: an Endocrine Society clinical practice guideline. JCEM. 2010; 96(7):1911-30. :10 URINALYSIS, W/ MICRO (07703) Comments: PATIENT WAS FASTINGPERFORMED BY: TASS70 [employer] [place] [id number] Microscopic Examination See below: (Normal) Comments: Microscopic was indicated and was performed. Nitrite, Urine Negative (Normal) Urobilinogen,Semi-Qn 0.2 mg/dL (Normal) Range: 0.2-1.0 Bilirubin Negative (Normal) Occult Blood Negative (Normal) Ketones Negative (Normal) Glucose Negative (Normal) Protein 1+ (Abnormal) WBC Esterase 3+ (Abnormal) Appearance Cloudy (Abnormal) Urine-Color Yellow (Normal) pH 7.5 (Normal) Range: 5.0-7.5 Specific [place] 1.023 (Normal) Range: 1.005-1.030 :10 METABOLIC PANEL, COMPREHENSIVE Comments: PATIENT WAS FASTINGPERFORMED BY: [employer]6370 [facility] SystemsAt[facility] [id number] (48692) ALT (SGPT) 26 [iU]/L (Normal) Range: 0-32 [...] mg/dL (Normal) Range: 65-99 :10 LIPID PANEL (91525) Comments: PATIENT WAS FASTINGPERFORMED BY: AmnisAtrium Health Lincoln [id number] LDL/HDL Ratio 1.9 {ratio_units} (Normal) Range: 0.0-3.2 [...] auto diff Comments: PATIENT WAS FASTINGPERFORMED BY: [facility]6370 Mil[facility] SystemsAt[facility] [id number] Information: [id number]; apt. 09-18-[birth year] (05867) Immature Grans (Abs) 0.0 {x10E3/uL} (Normal) Range: [...] With Differential/Platelet Comments: PATIENT WAS FASTINGPERFORMED BY: [facility] HospitalCoHackettstown Medical CenterHbaehb1815 [facility] [id number] Information: [id number] Immature Grans (Abs) 0.0 {x10E3/uL} (Normal) Range: [...] Panel (14) Comments: PATIENT WAS FASTINGPERFORMED BY: LabDuane L. Waters Hospital6370 [facility] [id number] ALT (SGPT) 24 [iU]/L (Normal) Range: 0-32 [...] With LDL/HDL Comments: PATIENT WAS FASTINGPERFORMED BY: achvr [place] [id number] Ratio LDL/HDL Ratio 2.1 {ratio_units} (Normal) Range: [...] Clint Hunter Comments: PATIENT WAS FASTINGPERFORMED BY: achvr [place] [id number]; has fu 03-17-15 will review with her then Microalb/Creat Ratio 9.1 {mg/g_creat} Range: 0.0-30.0 (Normal) Microalbumin, Urine 25.2 ug/mL (Abnormal) Range: 0.0-17.0 Creatinine, Urine 278.2 mg/dL (Abnormal) Range: 15.0-278.0 Vitamin D, 25-Hydroxy 31.1 ng/mL (Normal) Comments: PATIENT WAS FASTINGPERFORMED BY: [employer]COM70 [employer] Financial GlobalCatawba Valley Medical Centerin [place] [id number] :27 Range: 30.0-100.0 Comments: Vitamin D deficiency has been defined by the [place] ofMedicine and an Endocrine Society practice guideline as alevel of serum 25-OH vitamin D less than 20 ng/mL (1,2).The Endocrine Society went on to further define vitamin Dinsufficiency as a level between 21 and 29 ng/mL (2).1. IOM ([place] of Medicine). 2010. Dietary reference intakes for calcium and D. [place]: The National Academies Press.2. Barb MF, Malachi [place], Bj MOREIRA, et al. Evaluation, treatment, and prevention of vitamin D deficiency: an Endocrine Society clinical practice guideline. JCEM. 2010; 96(7):1911-30. :35 Microscopic Examination Comments: PATIENT WAS FASTINGPERFORMED BY: TASS70 Mil[facility] SystemsAt[facility] Health [facility] [id number] Bacteria None seen (Normal) Mucus Threads Present (Normal) Crystal Type Calcium Oxalate (Normal) Crystals Present (Abnormal) Epithelial Cells (non renal) 0-10 {/hpf} (Normal) Range: 0 - 10 RBC 0-2 {/hpf} (Normal) Range: 0 - 2 WBC 0-5 {/hpf} (Normal) Range: 0 - 5 :06 Rapid Strep Test, Office (86176) Rapid Strep Test, Office Negative (Normal) :03 Rapid Flu (23225 x 2) Influenza A Ag neg (Normal) :35 URINALYSIS, W/ MICRO (84481) Comments: 12-14; PATIENT WAS FASTINGPERFORMED BY: tocario Cmzirp5124 [facility] [place] [id number] Microscopic Examination See below: (Normal) Comments: Microscopic was indicated and was performed. Nitrite, Urine Negative (Normal) Urobilinogen,Semi-Qn 1.0 mg/dL (Normal) Range: 0.0-1.9 Bilirubin Negative (Normal) Occult Blood Negative (Normal) Ketones Trace (Abnormal) Glucose Negative (Normal) Protein 1+ (Abnormal) WBC Esterase Trace (Abnormal) Appearance Clear (Normal) Urine-Color Yellow (Normal) pH 6.5 (Normal) Range: 5.0-7.5 Specific [place] 1.029 (Normal) Range: 1.005-1.030 :35 CBC, Platelets & Auto Diff Comments: -; PATIENT WAS FASTINGPERFORMED BY: LabDuane L. Waters Hospital6370 [facility] [id number] Information: [id number] (35793) Immature Grans (Abs) 0.2 {x10E3/uL} Range: 0.0-0.1 [...] Comprehensive Comments: -; PATIENT WAS FASTINGPERFORMED BY: LabCoHackettstown Medical CenterUisuts5057 [facility] [id number] (45261) ALT (SGPT) 16 [iU]/L (Normal) Range: 0-32 [...] Glucose, Serum 81 mg/dL (Normal) Range: 65-99 8-Dec-55690:35 Lipid Panel (46687) Comments: -14; PATIENT WAS FASTINGPERFORMED BY: tocarioHackettstown Medical CenterYdcbux3053 [facility] [id number] LDL/HDL Ratio 1.7 {ratio_units} (Normal) Range: 0.0-3.2 [...] Cholesterol, Total 215 mg/dL (Abnormal) Range: 100-199 63-Ppx-166146:12 Metabolic Panel, Basic Comments: today; PATIENT NOT FASTINGPERFORMED BY: tocario Overlw4068 [facility] [id number] Information: [id number],NURSE DRAW (86362) Calcium, Serum 10.6 mg/dL (Abnormal) Range: 8.6-10.2 [...] Comments: 4 months; PATIENT WAS FASTINGPERFORMED BY: tocarioHackettstown Medical CenterIhvasc9844 [facility] [id number] Information: [id number] COMPREHENSIVE (13343) ALT (SGPT) 24 [iU]/L (Normal) Range: 0-32 [...] mg/dL (Normal) Range: 65-99 06-Jan-20148:06 LIPID PANEL (63550) Comments: 4 months; PATIENT WAS FASTINGPERFORMED BY: LATA [facility] Uindqo6775 [facility] [id number] LDL/HDL Ratio 2.0 {ratio_units} (Normal) Range: 0.0-3.2 LDL Cholesterol Calc 145 mg/dL (Abnormal) Range: 0-99 VLDL Cholesterol Thanh 22 mg/dL (Normal) Range: 5-40 HDL Cholesterol 71 mg/dL (Normal) Comments: According to ATP-III Guidelines, HDL-C >59 mg/dL is considered anegative risk factor for CHD. Triglycerides 111 mg/dL (Normal) Range: 0-149 Cholesterol, Total 238 mg/dL (Abnormal) Range: 100-199 :03 Potassium Serum (35938) Comments: today; PATIENT NOT FASTINGPERFORMED BY: [facility]6370 [facility] [id number] Information: [id number] Potassium, Serum 3.7 mmol/L (Normal) Range: 3.5-5.2 22-Qdl-463268:41 MICROALBUMIN: CREATININE Comments: PATIENT NOT FASTINGPERFORMED BY: [place] 1679170 [facility] [id number] Information: [id number] RATIO (09706) AND (76879) Microalb/Creat Ratio 6.9 {mg/g_creat} (Normal) Range: 0.0-30.0 Microalbumin, Urine 19.6 ug/mL (Abnormal) Range: 0.0-17.0 Creatinine, Urine 282.6 mg/dL (Abnormal) Range: 15.0-278.0 :57 METABOLIC PANEL, COMPREHENSIVE Comments: PATIENT WAS FASTINGPERFORMED BY: [place] 1679170 [facility] [id number] (30473) ALT (SGPT) 26 [iU]/L (Normal) Range: 0-32 [...] mg/dL (Normal) Range: 65-99 :57 LIPID PANEL (67493) Comments: PATIENT WAS FASTINGPERFORMED BY: [employer] [id number] LDL/HDL Ratio 1.7 {ratio_units} (Normal) Range: 0.0-3.2 [...] MANUAL DIFF Comments: PATIENT WAS FASTINGPERFORMED BY: [employer] [facility] [id number] Information: [id number] (39489) Immature Grans (Abs) 0.0 {x10E3/uL} (Normal) Range: [...] CREATININE RATIO Comments: PATIENT WAS FASTINGPERFORMED BY: Project InsidersHackettstown Medical CenterLfzaaw6081 [facility] [id number] (34406) AND (22240) Microalb/Creat Ratio 4.0 {mg/g_creat} (Normal) Range: 0.0-30.0 Microalbumin, Urine 8.3 ug/mL (Normal) Range: 0.0-17.0 Creatinine, Urine 206.4 mg/dL (Normal) Range: 15.0-278.0 :29 METABOLIC PANEL, COMPREHENSIVE Comments: PATIENT WAS FASTINGPERFORMED BY: Project InsidersHackettstown Medical CenterEzlmsy9181 [facility] [id number] (02308) ALT (SGPT) 22 [iU]/L (Normal) Range: 0-32 [...] mg/dL (Normal) Range: 65-99 :29 LIPID PANEL (73859) Comments: PATIENT WAS FASTINGPERFORMED BY: [facility]6370 Mil[facility] SystemsAt[facility] [id number] LDL/HDL Ratio 1.9 {ratio_units} (Normal) Range: 0.0-3.2 [...] MANUAL DIFF Comments: PATIENT WAS FASTINGPERFORMED BY: TASS70 [facility] [id number] Information: [id number] (38478) Immature Grans (Abs) 0.0 {x10E3/uL} (Normal) Range: [...] Default Comments: PATIENT WAS FASTINGPERFORMED BY: LATA LabCoHackettstown Medical CenterBvblgb0765 [facility] [id number] Immature Grans (Abs) 0.0 {x10E3/uL} (Normal) Range: [...] Comments: PATIENT WAS FASTINGPERFORMED BY: LabCoHackettstown Medical CenterKciedt4979 [facility] [id number] (59102) ALT (SGPT) 22 [iU]/L (Normal) Range: 0-32 [...] mg/dL (Normal) Range: 65-99 :06 LIPID PANEL (46571) Comments: PATIENT WAS FASTINGPERFORMED BY: LabCoHackettstown Medical CenterAuhiwu5587 [facility] [id number] LDL/HDL Ratio 1.2 {ratio_units} (Normal) Range: 0.0-3.2 LDL Cholesterol Calc 95 mg/dL (Normal) Range: 0-99 VLDL Cholesterol Thanh 13 mg/dL (Normal) Range: 5-40 HDL Cholesterol 80 mg/dL (Normal) Comments: According to ATP-III Guidelines, HDL-C >59 mg/dL is considered anegative risk factor for CHD. Triglycerides 64 mg/dL (Normal) Range: 0-149 Cholesterol, Total 188 mg/dL (Normal) Range: 100-199 :59 Urinalysis, Office (76407) UA - BILIRUBIN Negative (Normal) UA - BLOOD Hemolyzed Trace (Normal) UA - GLUCOSE Negative (Normal) UA - KETONES Negative mg/dL (Normal) UA - LEUKOCYTE ESTERASE Negative (Normal) UA - NITRITE Negative (Normal) UA - PH 8.0 (Normal) UA - PROTEIN Negative mg/dL (Normal) UA - SPECIFIC GRAVITY 1.015 (Normal) URINE UROBILINGN JOSÉ MIGUEL TIMED Normal mg/dL (Normal) 88-Ibc-81300:11 DEXA BONE DENSITY STUDY (HP) Radiology Report [...] Clinical Densitometry http://www.iscd.org3. National Osteoporosis Foundation http://www.nof.org Signed:oRgelio Kumar M.D.March 29, 2012 at 8:59:04 AM [phone] Signed GP/GP If you are the referring physician and would like to consult with theradiologist who provided this interpretation, please contact Miracle Dale at . If this radiologist is unavailable,youwill be directed to another radiologist to assist. If you are a patient with a question r egarding this report, pleasecontactyour referring physician directly. Professional Interpretation Provided By: [facility], Phone , Dictated on 03/28/12 0813 by Taty masters MD,Vimalranscribed on 03/29/12 0904 by ITS IMPORTSign by Jake ALEXANDRE,Rogelio on 03/29/12904 Sign by: Jake ALEXANDRE,Rogelio 02-Vze-03590:00 BILAT SCRN DIGITAL & CAD Radiology Report [...] Kumar M.D.March 28, 2012 at 9:07:04 AM [phone] Signed GP/GP If you are the referring physician and would like to consult with theradiologist who provided this interpretation, please contact Miracle Dale at . If this radiologist is unavailable,youwill be directed to another radiologist to assist. If you are a patient with a question regarding this report, pleasecontactyour referring physician directly. Professional Interpretation Provided By: [facility], Phone , Dictated on 03/28/12 084 7 by Jake ALEXANDRE,Preetribed on 03/28/12 1125 by ITS IMPORTSign by Rogelio Kumar MD on 03/28/12 1126 Sign by: Rogelio Kumar MD 34-Bye-16912:17 LIPID PANEL (90906) Comments: PATIENT NOT FASTINGPERFORMED BY: [facility]6370 [facility] SystemsAt[facility] [id number] LDL Cholesterol Calc 93 mg/dL (Normal) Range: 0-99 LDL/HDL Ratio 1.3 {ratio_units} (Normal) Range: 0.0-3.2 VLDL Cholesterol Thanh 22 mg/dL (Normal) Range: 5-40 HDL Cholesterol 73 mg/dL (Normal) Comments: According to ATP-III Guidelines, HDL-C >59 mg/dL is considered anegative risk factor for CHD. Triglycerides 112 mg/dL (Normal) Range: 0-149 Cholesterol, Total 188 mg/dL (Normal) Range: 100-199 03-Fvb-50747:17 HEPATIC FUNCTION PANEL Comments: PATIENT NOT FASTINGPERFORMED BY: [facility]6370 [facility] [id number] Information: ADD DRAW FEE [id number] ADD J0 2911 (70082) ALT (SGPT) 28 [iU]/L (Normal) Range: 0-40 AST (SGOT) 29 [iU]/L (Normal) Range: 0-40 Alkaline Phosphatase, S 54 [iU]/L (Normal) Range: 25-165 Bilirubin, Direct 0.20 mg/dL (Normal) Range: 0.00-0.40 Bilirubin, Total 0.7 mg/dL (Normal) Range: 0.0-1.2 Albumin, Serum 4.6 g/dL (Normal) Range: 3.5-4.8 Protein, Total, Serum 6.5 g/dL (Normal) Range: 6.0-8.5 01-Qoe-60481:30 CBC WITH MANUAL DIFF Comments: PATIENT WAS FASTINGPERFORMED BY: [facility]Duane [facility]. [facility] Hospital6370 [facility] [id number] Information: [id number] (47310) Immature Grans (Abs) 0.0 {x10E3/uL} (Normal) Range: [...] {x10E3/uL} (Normal) Range: 4.0-10.5 :30 LIPID PANEL (08786) Comments: PATIENT WAS FASTINGPERFORMED BY: Project InsidersHackettstown Medical CenterPtzxrk8185 [facility] [id number]; OV 02/28/12 LDL/HDL Ratio 2.1 {ratio_units} (Normal) [...] PANEL, COMPREHENSIVE Comments: PATIENT WAS FASTINGPERFORMED BY: Project InsidersHackettstown Medical CenterUpcawc4786 [facility] [id number] (45173) ALT (SGPT) 19 [iU]/L (Normal) Range: 0-40 [...] CREATININE RATIO Comments: PATIENT WAS FASTINGPERFORMED BY: LabCoHackettstown Medical CenterGgfifc6271 [facility] [id number] (05257) AND (01067) Microalb/Creat Ratio 5.5 {mg/g_creat} (Normal) Range: 0.0-30.0 [...] regarding this repo rt, please call our 01Z7ekjilem line @ Dictated on 01/24/12 09 by Jaron Lindo MDTranscribed on 01/24/122328 by ITS IMPORTSign by Jaron Lindo MD on 01/24/12 2330 Sign by: Belgica ALEXANDREJaron 6-Ijo-676614:46 CHEST, PA AND LATERAL Radiology Report See [...] regarding this report, ple ase call our 43U2rjrvopy line @ Dictated on 01/03/12 1257 by Rakesh Benavidez MDTranscribed on 01/04/12 1540 by ITS IMPORTSign by Rakesh Benavidez MD on 01/04/12 1540 Sign by: Rakesh Benavidez MD 22-Ykc-10830:30 MYOCARD PERF STRESS/REST MULT Radiology Report See Note (Normal) Comments: EXERCISE STRESS TEST HISTORYA 75-year-old lady with history of abnormal EKG. BVWOAUVRG64.0 mCi of Sestamibi was injected at rest. [...] 07/01/11 0530 by NIRMALA CEDILLOITESign by Alejandro ALEXANDRE,[place] on 07/10/11 1645 Sign by: ___ Alejandro ALEXANDRE,[place] :03 Creatinine Clearance Comments: PERFORMED BY: achvr [place] [id number] Information: 06/26/11@7AM 06/27/11@7AM Creatinine Clearance 68 mL/min [...] Protein Total, Qn, 24-Hr Comments: PERFORMED BY: [facility]63Xi[facility] Music NetworkAtrium Health Lincoln [id number] Urine Prot,24hr calculated <31.5 {mg/24_hr} (Normal) Range: 30.0-150.0 Protein,Total,Urine <1.5 mg/dL (Normal) Range: 0.0-15.0 Comments: Verified by repeat analysis :21 LIPID PANEL (42982) Comments: in three months (approximately); PATIENT WAS FASTINGPERFORMED BY: [employer] Pcbqkz4361 [facility] [id number] Information: [id number] LDL/HDL Ratio 2.1 {ratio_units} (Normal) Range: 0.0-3.2 [...] Microscopic Examination Comments: PATIENT WAS FASTINGPERFORMED BY: TASS70 [facility] [id number] Bacteria Few (Normal) Mucus Threads Present (Normal) Crystal Type Amorphous Sediment (Normal) Crystals Present (Abnormal) Cast Type Hyaline casts (Normal) Casts Present {/lpf} (Abnormal) Epithelial Cells (non renal) 0-10 {/hpf} (Normal) Range: 0 - 10 RBC 4-10 {/hpf} (Abnormal) Range: 0 - 3 WBC 0-5 {/hpf} (Normal) Range: 0 - 5 :23 CBC WITH MANUAL DIFF (52877) Comments: PATIENT WAS FASTINGPERFORMED BY: Project InsidersHackettstown Medical CenterWzrfth1825 [facility] [id number] Immature Grans (Abs) 0.0 {x10E3/uL} (Normal) Range: [...] {x10E3/uL} (Normal) Range: 4.0-10.5 :23 LIPID PANEL (09398) Comments: PATIENT WAS FASTINGPERFORMED BY: [employer] [facility] [id number] LDL/HDL Ratio 2.0 {ratio_units} (Normal) Range: 0.0-3.2 [...] PANEL, COMPREHENSIVE Comments: PATIENT WAS FASTINGPERFORMED BY: [employer] [facility] [id number] (32113) ALT (SGPT) 32 [iU]/L (Normal) Range: 0-40 [...] Glucose, Serum 93 mg/dL (Normal) Range: 65-99 44-Lkr-61209:23 URINALYSIS, W/ MICRO (88668) Comments: PATIENT WAS FASTINGPERFORMED BY: LabCo Rqzkjj6791 [facility] [id number]; appt 06/23/11 Microscopic Examination See below: (Normal) Nitrite, Urine Negative (Normal) Urobilinogen,Semi-Qn 0.2 mg/dL (Normal) Range: 0.0-1.9 Bilirubin Negative (Normal) Occult Blood Negative (Normal) Ketones Negative (Normal) Glucose Negative (Normal) Protein 1+ (Abnormal) WBC Esterase Negative (Normal) Appearance Cloudy (Abnormal) Urine-Color Yellow (Normal) pH 6.5 (Normal) Range: 5.0-7.5 Specific [place] 1.028 (Normal) Range: 1.005-1.030 99-Ovw-956481:23 BILAT SCRN DIGITAL & CAD Radiology Report [...] 01/25/11 2351 Sign by: ELVIS SMITH MD 60-Djz-800880:01 Urinalysis, Office (83235) UA - BILIRUBIN Negative (Normal) UA - BLOOD Negative (Normal) UA - GLUCOSE Negative (Normal) UA - KETONES Negative mg/dL (Normal) UA - LEUKOCYTE ESTERASE Negative (Normal) UA - NITRITE Negative (Normal) UA - PH 7.0 (Normal) UA - PROTEIN Negative mg/dL (Normal) UA - SPECIFIC GRAVITY 1.015 (Normal) URINE UROBILINGN JOSÉ MIGUEL TIMED Normal mg/dL (Normal) 43-Udu-68611:28 Microscopic Examination Comments: PATIENT WAS FASTINGPERFORMED BY: [place] 1679170 [facility] [id number] Bacteria Few (Normal) Mucus Threads Present (Normal) Epithelial Cells (non renal) 0-10 {/hpf} (Normal) Range: 0 - 10 RBC 0-3 {/hpf} (Normal) Range: 0 - 3 WBC 0-5 {/hpf} (Normal) Range: 0 - 5 :28 LIPID PANEL (61268) Comments: PATIENT WAS FASTINGPERFORMED BY: [facility]6370 [facility] [id number] LDL/HDL Ratio 1.4 {ratio_units} (Normal) Range: 0.0-3.2 HDL Cholesterol 76 mg/dL (Normal) Comments: According to ATP-III Guidelines, HDL-C >59 mg/dL is considered anegative risk factor for CHD. LDL Cholesterol Calc 110 mg/dL (Abnormal) Range: 0-99 VLDL Cholesterol Thanh 23 mg/dL (Normal) Range: 5-40 Cholesterol, Total 209 mg/dL (Abnormal) Range: 100-199 Triglycerides 117 mg/dL (Normal) Range: 0-149 :28 URINALYSIS, W/ MICRO (72501) Comments: PATIENT WAS FASTINGPERFORMED BY: NtiretyDuane L. Waters Hospital6370 [facility] [id number] Microscopic Examination See below: (Normal) Bilirubin Negative (Normal) Nitrite, Urine Negative (Normal) Occult Blood Negative (Normal) Urobilinogen,Semi-Qn 0.2 mg/dL (Normal) Range: 0.0-1.9 Appearance Clear (Normal) Glucose Negative (Normal) Ketones Negative (Normal) Protein 1+ (Abnormal) WBC Esterase Negative (Normal) pH 6.0 (Normal) Range: 5.0-7.5 Specific [place] 1.031 (Abnormal) Range: 1.005-1.030 Urine-Color Yellow (Normal) :28 METABOLIC PANEL, COMPREHENSIVE Comments: PATIENT WAS FASTINGPERFORMED BY: [facility]6370 [facility] [id number] (18743) Alkaline Phosphatase, S 47 [iU]/L (Normal) Range: [...] Glucose, Serum 98 mg/dL (Normal) Range: 65-99 20-Fuc-23248:28 CBC WITH MANUAL DIFF Comments: PATIENT WAS FASTINGPERFORMED BY: LabCoHackettstown Medical CenterPgjwpm8977 [facility] [id number] Information: [id number] (88604) Immature Grans (Abs) 0.0 {x10E3/uL} (Normal) Range: [...] on 09/06/10 0749 Sign by: Pao Cristobal 25-Coq-128707:35 N-Telopeptide, Urine Comments: PERFORMED BY: BN [facility] Jupekulgge7460 [facility] [id number] BY: CB [facility] Kukxli3720 Aj [facility] [id number] Information: 06/23@7AM 06/24@7AM Interpretive Guide: SPRCS (Normal) [...] 1.4 p=0.2838- 51 2.5 p=0.0351- 67 3.8 p=0.432911-324 17.3 p=0.32409. Menopausal Women Receiving Antiresorptive Therapy: Theprobability that treatment is effective after threemonths is increased when the measured NTx va lue is<or=38 nM BCE/mM INDUSTRY CONSULTANT, or NTx has decreased >or=30% frombaseline (1)..3. [...] N-telopeptide 34 {nmol_BCE} (Normal) :11 Urinalysis, Office (24591) UA - LEUKOCYTE ESTERASE Negative (Normal) UA [...] Report See Note (Normal) Comments: Exam Number: [id number] MYOCARDIAL PERFUSION SCAN TECHNIQUEThe patient was injected [...] of 62%. Reported By: ROMEL SILVERIO M.D. 03-Hwk-825357:11 BRAIN W/WO CONTRAST Radiology Report See Note (Normal) Comments: Exam Number: [id number] CLINICAL:73-year-old female with tremors for over one [...] ischemic changes. Reported By: ELVIS BEARD M.D. 83-Due-664092:39 Basic Metabolic Panel (8) Comments: A courtesy copy of this report has been sent [phone].PERFORMED BY: [facility]6370 [facility] [id number] Information: [id number] Calcium, Serum 9.7 mg/dL (Normal) Range: 8.6-10.2 [...] CREATININE RATIO Comments: PATIENT WAS FASTINGPERFORMED BY: TASS70 [employer] GlobalUNC [facility] [id number] (11623) AND (32862) Microalb/Creat Ratio 4.3 {mg/g_creat} (Normal) Range: 0.0-30.0 Microalbumin, Urine 6.1 ug/mL (Normal) Range: 0.0-17.0 Creatinine, Urine 140.7 mg/dL (Normal) Range: 15.0-278.0 :15 METABOLIC PANEL, COMPREHENSIVE Comments: PATIENT WAS FASTINGPERFORMED BY: TASS70 [facility] [id number] (08562) ALT (SGPT) 30 [iU]/L (Normal) Range: 0-40 [...] mg/dL (Normal) Range: 65-99 :15 LIPID PANEL (70432) Comments: PATIENT WAS FASTINGPERFORMED BY: [facility]nisAt[facility] [id number] LDL Cholesterol Calc 150 mg/dL (Abnormal) Range: [...] MANUAL DIFF Comments: PATIENT WAS FASTINGPERFORMED BY: TASS70 [employer] SystemsAtrium Health [facility] [id number] Information: ADD [id number] AND DRAW FEE 99 8113 (30846) Immature Grans (Abs) 0.0 {x10E3/uL} (Normal) Range: [...] 3.80-5.10 WBC 6.0 {x10E3/uL} (Normal) Range: 4.0-10.5 36-Puh-244863:33 CELINE CULTURE-OTHER (12354) Comments: PATIENT NOT FASTINGPERFORMED BY: [facility] Rctkya1013 [facility] [id number] Information: SRC:THRT [id number] Result 1 RRF (Normal) Comments: Routine respiratory graeme Upper Respiratory Culture Final report (Normal) 54-Lyd-103506:14 Rapid Strep Test, Office (55571) Rapid Strep Test, Office Negative (Normal) 11-Jdl-614739:38 BRAIN/HEAD W/WO CONTRAST Radiology Report See Note (Normal) Comments: Exam Number: [id number] CT SCAN OF THE HEAD Multiple axial [...] without intravenous contrast. Reported By: ROGELIO KUMAR 81-Lub-941697:47 BILAT SCRN DIGITAL & CAD Radiology Report See Note (Normal) Comments: Exam Number: [id number] MAMMOGRAM, BILATERAL SCREENING DIGITAL AND CAD HISTORYRoutine screening. Full field digital images were obtained in mediolateral oblique andcraniocaudal projections. CAD images w ere reviewed. The current study is compared to the examinations of June and September 08, 2008 from the [facility]. There is moderately dense fibroglandular parench yma [...] mammograms werealso examined with computer-aided detection software ([employer] Reported By: ELVIS SMITH M.D. 63-Avo-616912:46 DEXA BONE DENSITY STUDY (HP) Radiology Report See Note (Normal) Comments: Exam Number: [id number] DEXA AXIAL SKELETON A DEXA scan was [...] IMPRESSIONOsteopenia. Reported By: ROGELIO KUMAR :14 TSH (06954) Comments: PATIENT WAS FASTINGPERFORMED BY: LabCoHackettstown Medical CenterNdrgwb4666 [facility] [id number] TSH 1.980 {uIU/mL} (Normal) Range: 0.450-4.500 :14 METABOLIC PANEL, COMPREHENSIVE Comments: PATIENT WAS FASTINGPERFORMED BY: [employer] LabCoHackettstown Medical CenterAbcwof2305 [facility] [id number] (03694) ALT (SGPT) 17 [iU]/L (Normal) Range: 0-40 [...] mg/dL (Normal) Range: 65-99 :14 LIPID PANEL (68678) Comments: PATIENT WAS FASTINGPERFORMED BY: TASS70 [employer] GlobalUNC [facility] [id number] HDL Cholesterol 84 mg/dL (Normal) Comments: According [...] MANUAL DIFF Comments: PATIENT WAS FASTINGPERFORMED BY: tocarioNor-Lea General HospitalUmxxhq6948 [facility] [id number] Information: [id number] (19843) Baso (Absolute) 0.1 {x10E3/uL} (Normal) Range: 0.0-0.2 [...] 3.80-5.10 WBC 6.3 {x10E3/uL} (Normal) Range: 4.0-10.5 59-Ovf-802174:23 Urinalysis, Office (25430) UA - BILIRUBIN Negative (Normal) UA - BLOOD Negative (Normal) UA - GLUCOSE Negative (Normal) UA - KETONES Negative mg/dL (Normal) UA - LEUKOCYTE ESTERASE Negative (Normal) UA - NITRITE Negative (Normal) UA - PH 7.0 (Normal) UA - PROTEIN Negative mg/dL (Normal) UA - SPECIFIC GRAVITY 1.010 (Normal) URINE UROBILINGN JOSÉ MIGUEL TIMED Normal mg/dL (Normal) 77-Amy-115956:48 Hepatic Function Panel (7) Comments: PERFORMED BY: [facility]6370 [facility] [id number] Albumin, Serum 4.4 g/dL (Normal) Range: 3.5-4.8 Alkaline Phosphatase, S 57 [iU]/L (Normal) Range: 25-165 ALT (SGPT) 25 [iU]/L (Normal) Range: 0-40 AST (SGOT) 27 [iU]/L (Normal) Range: 0-40 Bilirubin, Direct 0.14 mg/dL (Normal) Range: 0.00-0.40 Bilirubin, Total 0.4 mg/dL (Normal) Range: 0.1-1.2 Protein, Total, Serum 6.4 g/dL (Normal) Range: 6.0-8.5 :29 Urinalysis, Office (41129) UA - BILIRUBIN Negative (Normal) UA - [...] Comments: PATIENT NOT FASTINGClinical Information: SRC:UR ADD [id number] PERFORMED BY: [employer] [id number] COUNT (91667) Result 1 NG36 (Normal) Comments: No growth in 36 - 48 hours. Urine Culture,Comprehensive Final report (Normal) :50 Metabolic Panel, Basic (04805) Comments: PATIENT NOT FASTINGClinical Information: ADD DRAW FEE [id number] ADD J 76951 PERFORMED BY: [employer] ([employer])[facility] [id number] BUN 16 mg/dL (Normal) Range: 5-26 BUN/Creatinine [...] mmol/L (Normal) Range: 135-145 :58 Urinalysis, Office (68056) UA - BILIRUBIN Negative (Normal) UA - BLOOD Hemolyzed Trace (Normal) UA - GLUCOSE Negative (Normal) UA - KETONES Negative mg/dL (Normal) UA - LEUKOCYTE ESTERASE Negative (Normal) UA - NITRITE Negative (Normal) UA - PH 7.0 (Normal) UA - PROTEIN Negative mg/dL (Normal) UA - SPECIFIC GRAVITY 1.010 (Normal) URINE UROBILINGN JOSÉ MIGUEL TIMED 2 mg/dL (Normal) 2-Xzh-973904:23 SHOULDER,MIN 2 VIEWS Radiology Report See Note (Normal) Comments: Exam Number: [id number] SHOULDER SERIES. HISTORYA 73-year-old woman with right shoulder pain. FINDINGSRight shoulder series. Cortical outlines are intact. Bones arenormally aligned, and joint spaces ar e well maintained. Soft tissuesare unremarkable. IMPRESSIONUnremarkable right shoulder series. Reported By: DAYNA RECINOS M.D. :07 Hepatic Function Panel (7) Comments: PATIENT WAS FASTINGPERFORMED BY: [facility] Zrussx5674 [facility] [id number] Albumin, Serum 4.3 g/dL (Normal) Range: 3.5-4.8 Alkaline Phosphatase, S 63 [iU]/L (Normal) Range: 25-165 ALT (SGPT) 27 [iU]/L (Normal) Range: 0-40 AST (SGOT) 29 [iU]/L (Normal) Range: 0-40 Bilirubin, Direct 0.10 mg/dL (Normal) Range: 0.00-0.40 Bilirubin, Total 0.3 mg/dL (Normal) Range: 0.1-1.2 Protein, Total, Serum 7.0 g/dL (Normal) Range: 6.0-8.5 :38 TSH (50250) Comments: PATIENT NOT FASTINGClinical Information: ADD DRAW FEE [id number] ADD J 41498 PERFORMED BY: LabCoHackettstown Medical CenterKgwaqq6308 [facility] [id number] TSH 1.604 {uIU/mL} (Normal) Range: 0.450-4.500 05-Jun-20097:25 Metabolic Panel, Comprehensive Comments: PATIENT WAS FASTINGClinical Information: ADD [id number], [id number] PERFORMED BY: [employer] Arctay9960 [facility] [id number] (30638) A/G Ratio 2.4 (Normal) Range: 1.1-2.5 Albumin, [...] mmol/L (Normal) Range: 135-145 :25 Lipid Panel (10596) Comments: in six months (approximately); PATIENT WAS FASTINGPERFORMED BY: [facility] Llftlg5496 [place] [id number] Cholesterol, Total 256 mg/dL (Abnormal) Range: 100-199 HDL Cholesterol 73 mg/dL (Normal) Comments: According to ATP-III Guidelines, HDL-C >59 mg/dL is considered anegative risk factor for CHD. LDL Cholesterol Calc 156 mg/dL (Abnormal) Range: 0-99 LDL/HDL Ratio 2.1 {ratio_units} (Normal) Range: 0.0-3.2 Triglycerides 133 mg/dL (Normal) Range: 0-149 VLDL Cholesterol Thanh 27 mg/dL (Normal) Range: 5-40 :20 Urinalysis, Office (96565) UA - BILIRUBIN Negative (Normal) UA - [...] Report See Note (Normal) Comments: Exam Number: [id number] MYOCARDIAL PERFUSION SCAN 11.7 millicuries of Tc99m [...] work load.2. Preserved ejection fraction. Reported By: RAIZA AGUILERA M.D. :55 Urinalysis, Office (16191) UA - BILIRUBIN Negative (Normal) UA - [...] Comments: PATIENT NOT FASTINGPERFORMED BY: LabCoHackettstown Medical CenterNakfxy4019 [facility] [id number] (02163) EBV Ab VCA, IgG 1276 AU/mL (Abnormal) [...] + + Antibody Present - Antibody Absent 18-Mla-65969:36 Upper Respiratory Culture Comments: Clinical Information: SRC: PERFORMED BY: [facility]6370 [facility] [id number] Result 1 RRF (Normal) Comments: Routine respiratory graeme Upper Respiratory Culture Final report (Normal) :48 Rapid Strep Test, Office (20377) Comments: neg Rapid Strep Test, Office Negative [...] T PROT 7.0 g/dL (Normal) Range: 6.4-8.2 75-Qrn-62466:20 LIPID CHOL 238 mg/dL (Abnormal) Comments: <200 [...] mg/dL VLDL 13 mg/dL (Normal) Range: 5-40 99-Wnz-939735:41 URINE CELINE CULTURE-JOSÉ MIGUEL COL Comments: PATIENT NOT FASTINGClinical Information: SRC:UR PERFORMED BY: LATA LabCoHackettstown Medical CenterAniaji6789 [facility] [id number] COUNT (92392) Result 1 NG36 (Normal) Comments: No growth in 36 - 48 hours. Urine Culture,Comprehensive Final report (Normal) 43-Iib-235142:30 Urinalysis, Office (10417) UA - LEUKOCYTE ESTERASE Trace (Normal) UA - NITRITE Negative (Normal) UA - PH 7.5 (Normal) UA - PROTEIN Negative mg/dL (Normal) URINE UROBILINGN JOSÉ MIGUEL TIMED 2 mg/dL (Normal) UA - BILIRUBIN Negative (Normal) UA - BLOOD Negative (Normal) UA - GLUCOSE Negative (Normal) UA - KETONES Negative mg/dL (Normal) UA - SPECIFIC GRAVITY 1.010 (Normal) 69-Tkm-406493:09 URINE CELINE CULTURE (JOSÉ MIGUEL COL Comments: PATIENT NOT FASTINGClinical Information: SRC:UR ADD [id number] PERFORMED BY: [facility] Prbpme2334 [facility] [id number] COUNT) (85441) Antimicrobial MIHEAD (Normal) Comments: S = Susceptible; [...] mL (Normal) Urine Final report Culture,Comprehensive (Normal) 08-Fdo-183406:56 Urinalysis, Office (99592) UA - BILIRUBIN Negative (Normal) UA - BLOOD Non Hemolyzed Trace (Normal) UA - GLUCOSE Small (Normal) UA - KETONES Small mg/dL (Normal) UA - LEUKOCYTE ESTERASE Small (Normal) UA - NITRITE Positive (Normal) UA - PH 6.0 (Normal) UA - PROTEIN 300 mg/dL (Normal) UA - SPECIFIC GRAVITY 1.020 (Normal) URINE UROBILINGN JOSÉ MIGUEL TIMED 2 mg/dL (Normal) 44-Bri-64442:12 L/S SPINE,MIN 4 VIEWS Radiology Report See Note (Normal) Comments: Exam Number: [id number] LUMBAR SPINE, FIVE VIEWS. INDICATIONLow back pain. [...] are seen. Reported By: EDSON ROCK M.D. 25-Nim-90047:39 COMP METABOLIC A/G 1.4 {RATIO} (Normal) Range: [...] pain, right Knee pain, right : Reviewed Fur Finisher Letter Indication: Knee pain, right Knee pain, [...] : Follow up in 4 months with [facility] for Gen Med Indication: Osteoporosis Osteoporosis : [...] back pain Planned Observations URINE CELINE CULTURE-IDENTIFICATN (83383)Indication: Right flank pain On: 7-Ick-772543:15 Request CALCIFIDIOL (27027) VIT D 25Indication: Osteoporosis On: 05-Odf-626086:51 Request MICROALBUMIN: CREATININE RATIO (47582) AND (68635)Indication: Hypertension On: 74-Jis-507365:51 Request METABOLIC PANEL, COMPREHENSIVE (39631)Indication: Hypertension On: 85-Zsz-890015:51 Request LIPID PANEL (19457)Indication: Hypertension On: 28-Qjp-612229:51 Request CBC W/AUTO DIFF WBC (99452)Indication: Hypertension On: 18-Apl-329625:51 Request URINALYSIS, W/ MICRO (16607)Indication: Hypertension On: 21-Yoq-693147:10 Request METABOLIC PANEL, COMPREHENSIVE (16949)Indication: Hypertension On: 12-Cgk-330552:10 Request LIPID PANEL (45129)Indication: Hypertension On: 70-Rnd-828173:10 Request CBC WITH MANUAL DIFF (81225)Indication: Hypertension On: 05-Asq-243888:10 Request CBC, PLATELETS & MANUAL DIFF (50099)Indication: Hypertension On: 8-Bft-555564:12 Request MICROALBUMIN: CREATININE RATIO (49399) AND (53111)Indication: Hypertension On: 80-Ina-004806:43 Request METABOLIC PANEL, COMPREHENSIVE (77016)Indication: Hypertension On: 94-Hih-716316:43 Request LIPID PANEL (87379)Indication: Hypertension On: 14-Gdh-089483:43 Request CBC WITH MANUAL DIFF (60543)Indication: Hypertension On: 51-Glc-445037:43 Request CREATININE CLEARANCE (07177)Indication: Proteinuria On: 44-Nzk-898324:12 Request Comments: now 24 hour urine for Protein (47631)Indication: Proteinuria On: 07-Amt-242737:12 Request Collagen Crosslinked N-Telopeptide (85204)Indication: Osteoporosis On: 22-Xxw-69319:59 Request Comments: 24 hour urine check now and in six months (approximately) HEPATIC FUNCTION PANEL (07243)Indication: oncomycosis On: 01-Fcu-77286:03 Request Comments: monthly x 3 EB ANTIBODY VIRAL CAPSID (23550) X6Uvzqtaivlr: Pharyngitis, acute On: 61-Kpz-771691:13 Request EB ANTIBODY NUCLR ANTIGN (29474)Indication: Pharyngitis, acute On: 42-Fbe-662502:13 Request CELINE CULTURE-OTHER (09856)Indication: Pharyngitis, acute On: 63-Yyr-88288:48 Request URINALYSIS W/O MICRO (42912)Indication: Hypertension On: 21-Yaf-69872:16 Request METABOLIC PANEL, COMPREHENSIVE (01450)Indication: Hypertension On: :16 Request CBC WITH MANUAL DIFF (30495)Indication: Hypertension On: 18-Etn-30588:16 Request Comments: in six months (approximately) LIPID PANEL (16804)Indication: Hypertension On: 59-Jyx-98635:16 Request CBC (Auto) (35613)Indication: Hypercholesterolemia On: :24 Request Metabolic Panel, Comprehensive (82694)Indication: Hypercholesterolemia On: :24 Request Lipid Panel (43119)Indication: Hypercholesterolemia On: :24 Request Comments: in six months (approximately) Metabolic Panel, Comprehensive (27126)Indication: Hypercholesterolemia On: 61-Jll-883370:09 Request Lipid Panel (25206)Indication: Hypercholesterolemia On: 14-Hea-813619:09 Request Comments: 4m Planned Encounters Medical; 3 Month FU - On: 08-Oct-2018 13:45 Comprehensive Internal Medicine Nguyen Santana CNP, CNP, Mary E Planned Procedures SCREENING DIGITAL TOMOSYNTHESIS OF On: 11-Jun-2018 Intent BREAST (54350)By: Nguyen Santana CNP, CNP, Mary E DEXA SCAN AXIAL SKELETON (16388)By: On: 11-Jun-2018 Intent Nguyen Santana CNP, CNP, Mary E Flu Vaccine (Quadrivalent) 93514Dt: On: 11-Jun-2018 Intent Nguyen Santana CNP, CNP, Mary E Aerosol Treatment (10271)By: On: 09-Nov-2017 Intent Zoraida Stewart Comments: Better air exchange after aerosol treatment. Holter Monitor 24 hrsBy: Max GIVENS, On: 15-Sep-2017 Intent Nguyen Skinner CNP Spirometry (57236)By: Max GIVENS, On: 15-Sep-2017 Intent Nguyen Skinner CNP Comments: mod severe restriction ELECTROCARDIOGRAM, COMPLETE (ECG) On: 15-Sep-2017 Intent (25771)By: Nguyen Santana CNP Comments: sinus bradycardia Nguyen GIVENS MAGNETIC RESONANCE IMAGING OF RIGHT On: 05-Jul-2017 Intent KNEE WITHOUT CONTRAST (80203)By: Nguyen Santana CNP, CNP, Mary E Flu Vaccine (Quadrivalent) 32895Ps: On: 14-Jun-2017 Intent Nguyen Santana CNP, CNP, Mary E Comments: Lot:[id number]:03/19/18Dose:0.5mLRoute:IMSite:L DltdGiven By:Guero signed Ultrasound - LiverBy: Max GIVENS, On: 08-Mar-2017 Intent Nguyen Skinner CNP Comments: REpeat in Jun 2017 CT - Abdomen & Pelvis Stone On: 30-Nov-2016 Intent ProtocolBy: Max Nguyen GIVENS CNP, Mary E Flu Vaccine (Quadrivalent) 34033Qc: On: 23-Aug-2016 Intent Jo Gaitan LPN Flu Vaccine (Quadrivalent) 13185Gn: On: 15-Sep-2015 Intent Miranda Bueno MD Comments: lot [id number]: 03/31/2016site/route L jean, IMamt 0.5mlVIS and ABN signed when applicableChelsea, MEAT SALES AND STORAGE MANAGER Kenalog Injection, 10 mgm On: 20-Mar-2015 Intent (J3301)By: Miranda Bueno MD Comments: x4 TDAP VACCINE >7 IM (20240)By: On: 17-Mar-2015 Intent Miranda Bueno MD MRI - Shoulder(s) - RightBy: Ximena On: 17-Mar-2015 Intent Miranda ALEXANDRE ADMINISTRATION OF INFLUENZA VIRUS On: 16-Sep-2014 Intent VACCINE (G0008)By: Miranda Bueno MD Flu Vaccine (Quadrivalent) [id number]: On: 16-Sep-2014 Intent Miranda Bueno MD ELECTROCARDIOGRAM, COMPLETE (ECG) On: 16-Sep-2014 Intent ([id number])By: Miranda Bueno MD Comments: routine for baseline see scanned document of test done to see results reviewed today with patient Aerosol Treatment ([id number])By: Max On: 01-Sep-2014 Intent Nguyen GIVENS BrittanyNguyen jurado CNP Eprescribed prescriptions (G8553)By: On: 25-Feb-2014 Intent Miranda Bueno MD Kenalog Injection, 10 mgm On: 14-Jan-2014 Intent (J3301)By: Miranda Bueno MD Kenalog Injection, 10 mgm On: 14-Jan-2014 Intent (J3301)By: Miranda Bueno MD Kenalog Injection, 10 mgm On: 14-Jan-2014 Intent (J3301)By: Miranda Bueno MD Kenalog Injection, 10 mgm On: 14-Jan-2014 Intent ([id number])By: Miranda Bueno MD DXA, BONE DENSITY, AXIAL SKELETON On: 14-Jan-2014 Intent ([id number])By: Miranda Bueno MD MAMMOGRAM, SCREENING, BOTH BREASTS On: 14-Jan-2014 Intent ([id number])By: Miranda Bueno MD Eprescribed prescriptions ([id number])By: On: 14-Jan-2014 Intent Miranda Bueno MD FLU VAC, SPLIT, >3 YEARS, INTRAMUSC On: 06-Sep-2013 Intent ([id number])By: PAM Sanz Comments: Lot #:[id number] date:03.15Amount given:0.5mlRoute: IMSite given:L DltdGiven by: VIS and ABN signed ADMINISTRATION OF INFLUENZA VIRUS On: 06-Sep-2013 Intent VACCINE (G0008)By: PAM Sanz Breast Screening - BilateralBy: On: 05-Jul-2013 Intent Miranda Bueno MD Eprescribed prescriptions (G8553)By: On: 07-Mar-2013 Intent Shelby Padilla ELECTROCARDIOGRAM, COMPLETE (ECG) On: 14-Dec-2012 Intent ([id number])By: Nguyen Santana CNP, CNP, Mary E ADMINISTRATION OF INFLUENZA VIRUS On: 11-Sep-2012 Intent VACCINE (G0008)By: Miranda Bueno MD FLU VAC, SPLIT, >3 YEARS, INTRAMUSC On: 11-Sep-2012 Intent ([id number])By: Miranda Bueno MD Eprescribed prescriptions ([id number])By: On: 29-May-2012 Intent Miranda Bueno MD EKG (15016)By: Miranda Bueno MD On: 28-Feb-2012 Intent Comments: see scanned document of test done to see results reviewed today with patient Holter Monitor 24 hrsBy: Ximena ALEXANDRE, On: 28-Feb-2012 Intent Miranda Moncada DXA, BONE DENSITY, AXIAL SKELETON On: 28-Feb-2012 Intent ([id number])By: Miranda Bueno MD MAMMOGRAM, SCREENING, BOTH BREASTS On: 28-Feb-2012 Intent (55126)By: Miranda Bueno MD Pulse Oximetry (06658)By: Yvon, On: 28-Feb-2012 Intent PAM Ultrasound - AortaBy: Ximena ALEXANDRE, On: 17-Jan-2012 Intent Miranda Moncada Carotid DopplerBy: Miranda Bueno MD On: 17-Jan-2012 Intent Antwan Pulse Oximetry (22286)By: Yvon, On: 17-Jan-2012 Intent PAM Spirometry ([id number])By: Max GIVENS, On: 10-Jan-2012 Intent Nguyen Skinner CNP Comments: Servere airway obstruction with low vital capacity Aerosol Treatment ([id number])By: Max On: 10-Jan-2012 Intent CHON MaryAnselmo Santana CNP Mary Solu -Medrol Injection, 125 mg On: 03-Jan-2012 Intent (J2930)By: Nguyen Santana CNP Comments: Lot # [id number]-R hip. IMDose 125nggiven by:Nguyen Lane CNP Radiology - ChestBy: Nguyen Santana CNP On: 03-Jan-2012 Intent Nguyen Mata CNP Aerosol Treatment ([id number])By: Max On: 03-Jan-2012 Intent Nguyen GIVENS CNP Mary Pulse Oximetry (17537)By: Gab BETHEA, On: 03-Jan-2012 Intent Taryn Solu -Medrol Injection, 125 mg On: 30-Dec-2011 Intent (J2930)By: Nguyen Santana CNP Comments: Lot #[id number]-left hipDose-125mggiven by: Marie Alvarado LPN CNP, Mary E Aerosol Treatment ([id number])By: Max On: 30-Dec-2011 Intent Nguyen GIVENS CNP, Mary E Solu -Medrol Injection, 125 mg On: 28-Dec-2011 Intent (J2930)By: Nguyen Santana CNP Comments: Lot #[id number]-right hipDose-125 mggiven by: Marie Alvarado LPN CNP, Mary E Aerosol Treatment ([id number])By: Max On: 28-Dec-2011 Intent Nguyen GIVENS CNP, Mary E Pulse Oximetry (51616)By: Max GIVENS, On: 26-Dec-2011 Intent Nguyen Santana CNP, Mary Aerosol Treatment ([id number])By: Max On: 26-Dec-2011 Intent CHON, Mary Max GIVENS, Mary FLU VAC, SPLIT, >3 YEARS, INTRAMUSC On: 19-Aug-2011 Intent ([id number])By: Miranda Bueno MD Comments: refuse Echo CompleteBy: Miranda Bueno MD On: 23-Jun-2011 Intent Nuclear Stress Test/Stress On: 23-Jun-2011 Intent SPECT/TreadmillBy: Miranda Bueno MD EKG ([id number])By: Miranda Bueno MD On: 23-Jun-2011 Intent ADMINISTRATION OF PNEUMOCOCCAL On: 15-Dec-2010 Intent VACCINE (G0009)By: Miranda Bueno MD PNEUM VAC ADLT/IMUMNOSPR, SBC/INTRM On: 15-Dec-2010 Intent ([id number])By: Miranda Bueno MD MAMMOGRAM, SCREENING, BOTH BREASTS On: 15-Dec-2010 Intent (81098)By: Miranda Bueno MD Eprescribed prescriptions (G8553)By: On: 15-Dec-2010 Intent Miranda Bueno MD Aerosol Treatment ([id number])By: Ximena On: 06-Dec-2010 Intent Miranda ALEXANDRE Pulse Oximetry (98970)By: Yvon On: 06-Dec-2010 Intent PAM Spirometry (17894)By: Ximena ALEXANDRE, On: 31-Aug-2010 Intent Miranda Moncada Radiology - ChestBy: Ximena ALEXANDRE, On: 31-Aug-2010 Intent Miranda Moncada Nuclear Stress Test/Stress On: 27-May-2010 Intent SPECT/TreadmillBy: Miranda Bueno MD ELECTROCARDIOGRAM, COMPLETE (ECG) On: 27-May-2010 Intent (22349)By: Miranda Bueno MD Spirometry ([id number])By: Ximena ALEXANDRE, On: 27-May-2010 Intent Miranda Moncada Pulse Oximetry (30837)By: Ximena On: 27-May-2010 Intent Miranda ALEXANDRE MRI - BrainBy: Miranda Bueno MD On: 27-May-2010 Intent Aerosol Treatment ([id number])By: Feliciano On: 22-Mar-2010 Intent DO, Holly A Pulse Oximetry (69541)By: Ashlee, On: 22-Mar-2010 Intent Stephanie Comments: 95%- spirometry with mod airway obsst CT - Brain/Head (IV Contrast On: 04-Feb-2010 Intent Needed)By: Miranda Bueno MD Comments: attention posterior fossa EKG (87011)By: Miranda Bueno MD On: 01-Jan-2010 Intent DXA, BONE DENSITY, AXIAL SKELETON On: 01-Jan-2010 Intent (70565)By: Miranda Bueno MD MAMMOGRAM, SCREENING, BOTH BREASTS On: 01-Jan-2010 Intent (87358)By: Miranda Bueno MD MRI - Shoulder(s) - RightBy: Ximena On: 01-Jan-2010 Intent Miranda ALEXANDRE Radiology - Shoulder - RightBy: On: 07-Jan-2009 Intent Miranda Bueno MD Holter Monitor 24 hrsBy: Ximena ALEXANDRE, On: 09-Dec-2008 Intent Miranda Moncada ELECTROCARDIOGRAM, COMPLETE (ECG) On: 09-Dec-2008 Intent (29070)By: Miranda Bueno MD Spirometry (90105)By: Ximena ALEXANDRE, On: 09-Dec-2008 Intent Miranda Moncada Pulse Oximetry (88965)By: Ximena On: 09-Dec-2008 Intent Miranda ALEXANDRE EKG (40915)By: Miranda Bueno MD On: 29-May-2008 Intent Nuclear Stress Test/Stress On: 29-May-2008 Intent SPECT/TreadmillBy: Miranda Bueno MD Pulse Oximetry (08409)By: Daniel ALBA, On: 13-Mar-2008 Intent Gin SPECIMEN HNDLNG/TRNSPRT, OFFC > LAB On: 13-Mar-2008 Intent (02569)By: Gin Sanchez LPN Echo CompleteBy: Miranda Bueno MD On: 29-Nov-2007 Intent Radiology - Lumbar SpineBy: Ximena On: 29-May-2007 Intent Miranda ALEXANDRE Radiology - Ankle - LeftBy: Ximena On: 28-Jun-2006 Miranda Mayer MD Planned Medications INJECTION, METHYLPREDNISOLONE SODIUM SUCCINATE, UP TO 125 MG Ordered: 28-Dec-2011 Pending Ciesa INDUSTRIAL HYGIENE TECHNICIAN, Mary Ciesa INDUSTRIAL HYGIENE TECHNICIAN, Mary INJECTION, METHYLPREDNISOLONE SODIUM SUCCINATE, UP TO 125 MG Ordered: 30-Dec-2011 Pending Ciesa INDUSTRIAL HYGIENE TECHNICIAN, Mary Ciesa INDUSTRIAL HYGIENE TECHNICIAN, Mary INJECTION, METHYLPREDNISOLONE SODIUM SUCCINATE, UP TO 125 MG Ordered: 03-Jan-2012 Pending Ciesa INDUSTRIAL HYGIENE TECHNICIAN, Mary Ciesa INDUSTRIAL HYGIENE TECHNICIAN, Mary INJECTION, TRIAMCINOLONE ACETONIDE, NOT OTHERWISE [...] Indication: Hypertension Hypertension : DISCONTINUED - URINALYSIS (55068) Indication: Hypertension Hypertension : DISCONTINUED - MICROALBUMIN: CREATININE RATIO (93048) AND (98956) Indication: Hypertension Screening for breast cancer : DISCONTINUED - BILATERAL MAMMOGRAMS (69536) Indication: Screening for breast cancer Osteoporosis : [...] using antibiotics. Note for Infection: went to [facility] urgent care last was put on [...] Need for immunization against influenza), Mitral Valve Djopiiswpvhrm315.6), Osteoporosis (733.00), Irritable bowel syndrome (564.1), ATHEROSCLEROSIS, AORTIC (440.0), Anxiety (300.00), History of colon polyps, Asthma, intrinsic, mild intermittent, with status asthmaticus, Osteoarthritis, Shoulder pain (719.41), Allergic rhinitis [facility] Office Visit On: 19-Mar-2015 10:42 Encounter Reason: Injections - The medication the patient is here to receive is other (2 cc marcaine lot# [id number] exp: 01-31-2016 [facility] paul lot# [id number] exp right shoulder ).Encounter Diagnosis: Shoulder pain [...] needs help with are none. The pat glenys has driven in past 6 months, put [...] The patient does have durable power of mortgage lender and living will. The patient has noticed nothing from the geriatic depression scale. Other providers contributing to the patient's care are offshore diver (Dr Silverio) and other: (Dr ridley saw [...] (733.00), Hypercholesterolemia (272.0), Osteoarthritis (715.96), Mitral Valve Armezbbvknwbs188.6), Colon Polyps, History of (V12.72), Asthma,Intrinsic (493.11), [...] incontinence, female, Fever and chills, Mitral Valve Vsiuitgfaffmn230.6), Colon Polyps, History of (V12.72), Irritable bowel [...] (493.11), Irritable bowel syndrome (564.1), Mitral Valve Scigqhhamwgsj388.6), Colon Polyps, History of (V12.72), Osteoporosis (733.00), [...] The patient does have durable power of mortgage lender and living will. The patient has noticed having problems with memory than others. Other providers contributing to the patient's c are are offshore diver (Dr Silverio) and other: (Dr Rodrigues and [...] (401.0)), Osteoarthritis (715.96), Anxiety (300.00), Mitral Valve Cpktwfbmqwhdh027.6), Osteoporosis (733.00), Allergic Rhinitis(477.9), Tremors (781.0), ATHEROSCLEROSIS, [...] from Hypertension (401.0)), Anxiety (300.00), Mitral Valve Mpjlifjimxkkg607.6), Hypercholesterolemia (272.0), Asthma,Intrinsic (493.11), Colon Polyps, History [...] from Hypertension (401.0)), Anxiety (300.00), Mitral Valve Sccpblyxrzxor887.6), Osteoarthritis (715.96), Osteoporosis (733.00), Allergic Rhinitis(477.9), ATHEROSCLEROSIS, [...] (733.00), Hypercholesterolemia (272.0), Asthma,Intrinsic (493.11), Mitral Valve Zbnuljadzprys294.6), Sleep disorder (780.50), ATHEROSCLEROSIS, AORTIC (440.0), Anxiety [...] ATHEROSCLEROSIS, AORTIC (440.0), Bradycardia (427.89), Mitral Valve Qokcicungyoyg053.6), Hip bursitis 726.5, Hypercholesterolemia (272.0), Anxiety (300.00), [...] Hypercholesterolemia (272.0), ATHEROSCLEROSIS, AORTIC (440.0), Mitral Valve Rfgkedavqbkrd455.6), Hip bursitis 726.5 [facility] [...] Anxiety (300.00), Chronic cough (786.2), Mitral Valve Evfsxmvwmpoiv226.6), Irritable bowel syndrome (564.1), Asthma,Intrinsic (493.11), Colon [...] Sleep disorder (780.50), Tremors (781.0), Mitral Valve Dpqxeexkzlxxi522.6), Anxiety (300.00), Osteoporosis (733.00), Irritable bowel syndrome [...] from Hypertension (401.0)), Tremors (781.0), Mitral Valve Wnnfxukjlsabp125.6), WWV-Bare, Shoulder pain (719.41), Headache (784.0), Irritable [...] chills. Note for Cold Symptoms: alot of aiange- little wheeze-- she is taking coricidanEncounter Diagnosis: [...] (427.89), Irritable bowel syndrome (564.1), Mitral Valve Cqqgrjqbwfnzy254.6), Headache (784.0), WWV-Latisha [facility] Office Visit On: 24-Jun-2009 [...] (427.89), Irritable bowel syndrome (564.1), Mitral Valve Grtkydotvjvfu087.6), Other specified pruritic conditions (698.8), Headache (784.0) [...] (788.1), Low back pain (724.2), Mitral Valve Muieaykxnxnin971.6), Osteopenia (733.90), Diarrhea (787.91), Sleep disorder (780.50), [...] (733.90), Acute sinusitis, unspecified (461.9), Mitral Valve Ofboekurbmfwy330.6), WWV-Bare, Low back pain (724.2), Sciatica (724.3), [...] were reported. none reported. Note for Sinusitis/: Dewey heat over bodyEncounter Diagnosis: ACUTE PHARYNGITIS (462.), [...] (272.0), Osteoarthritis (715.96), Allergic Rhinitis(477.9), Mitral Valve Qazjxaxbuumcn140.6), Low back pain (724.2), Sciatica (724.3), WWV-Bare [...] (845.09), Hypertension (401.0), Hypercholesterolemia (272.0), Mitral Valve Uxujborvlvmlb978.6), Sciatica (724.3), Allergic Rhinitis(477.9), WWV-Bare, Low back [...] (715.96), Hypercholesterolemia (272.0), Osteopenia (733.90), Mitral Valve Itkwwwyngbfoh408.6), WWV-Bare, Sciatica (724.3) [facility] Refill [...]
--- OUTSIDE RECORDS SUMMARY | 2018-10-28 14:19 | XMS RPT_ITS | Continuity of Care Document ---
:1935 Author Organization [facility] Address [address] [facility] [address] [place] [address] Phone Care Team Providers Name Role Phone Nguyen Santana CNP Unavailable Karey Beckman Unavailable Dayna Byrne Unavailable Ced Rodrigues MD [...] of colon polyps (Z86.010, V12.72) Comments: scope 06-10, 08-14 Status: Active Hot flashes (R23.2, 782.62) Comments: on premarin cream for dryness Status: Active Hypercholesterolemia (E78.00, 272.0) Comments: on colestipol lipid borderline Status: Active Hypertension (I10, 401.9) Comments: good. ekg little sinus arrthymia with varying rate but no signs and symptom stable on losartan hydrocholorathiazide and norvasc.Sees [facility] last in March 2016, occas PAcs and rosana, stable on losartan, hctz, and norvasc Status: Active IBS (irritable bowel syndrome) (K58.9, 564.1) Comments: stable, with diarrhea with abd cramping after a meal although not always,tried hyoscyamine with some improvement but also stopped dairy but still uses immodium daily, will try creon with samplesstop colesid not working Status: Active Internal hemorrhoid (K64.8, 455.0) Comments: from colonoscopy from [facility] 08-26-13 Status: Active Keratosis, 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 MRI done and went to [facility]. 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 wheezing is better. echo, stress tests - , [facility] Status: Active [...] (R32, 788.30) Comments: interested in Kiki piña given Status: Active Vaginal atrophy (N95.2, 627.3) [...] qd (137 MCG/SPRAY) Active CALCIUM + D, 734-090DT-RQCB (Oral Tablet) 1 qd for 0 days Refills: 0 Ordered:24-Jun-2009 Angelique Miller CENTRUM SILVER (Oral Tablet) 1 qd for 0 days Refills: 0 Ordered:24-Jun-2009 Angelique Miller Creon 18671 UNIT Oral Capsule Delayed Release Particles 2 (two) Unit with each meal for 0 days Quantity: 36 {Tablet} Refills: 0 Ordered:02-Jul-2018 Nguyen Santana CNP, CNP, Mary E Start : 02-Jul-2018 Active Comments:samples given HydroCHLOROthiazide 25 MG Oral Tablet 1 (one) Tablet QD for 0 days Quantity: 30 {Tablet} Refills: 7 Ordered:15-Sep-2017 Nguyen Santana CNP, CNP, Mary E Start : 15-Sep-2017 Active Hyoscyamine Sulfate ER 0.375 MG Oral Tablet Extended Release 12 Hour 1 (one) Tablet Tablet q12hrs prn for IBS and Gi spasms for 0 days Quantity: 60 {Tablet} Refills: 0 Ordered:11-Jun-2018 Paula Deisy Start : 11-Jun-2018 Active Losartan Potassium 50 MG Oral Tablet 1 (one) Tablet daily for 0 days Quantity: 30 {Tablet} Refills: 11 Ordered:11-Jun-2018 Max GIVENS, Nguyen Najera CNP, Nguyen Briones Start : 11-Jun-2018 Active Norvasc 2.5 MG [...] Refills: 0 Ordered:11-Jun-2018 Max GIVENS, Nguyen Najera [employer]IOR [employer] BUSINESS PARTNER, Nguyen Briones Start : 11-Jun-2018 End : [...] Refills: 0 Ordered:03-Jan-2012 Max GIVENS, Nguyen Najera [facility], Nguyen Briones Start : 03-Jan-2012 End : [...] {Capsule} Refills: 0 Ordered:08-Nov-2016 Max GIVENS, Nguyen Najera CNP, Nguyen Briones Start : 08-Nov-2016 End : 08-Nov-2016 Inactive Comments:[facility] Meloxicam 7.5 MG Oral Tablet 1 (one) Tablet daily as directed for 0 days Quantity: 30 {Tablet} Refills: 0 Ordered:19-Dec-2017 Long EXECUTIVE SOUS CHEFAriana L Start : 15-Sep-2017 End : 19-Dec-2017 [...] days Quantity: 1 {Aerosol_Soln} Refills: 3 Ordered:19-Dec-2017 Ariana Nick LPN Start : 23-Aug-2016 End : 19-Dec-2017 Inactive [...] days Quantity: 1 {Package} Refills: 0 Ordered:19-Dec-2017 Ariana Nick LPN Start : 10-Nov-2017 End : 19-Dec-2017 Inactive ZOSTAVAX, 55792ZZS/0.65ML (Subcutaneous Solution Reconstituted) 1 For Solution once [...] Start : 15-Sep-2015 End : 15-Sep-2015 Discontinued Angelitalle End : 08-Nov-2016 Discontinued [facility] Oral Capsule 1 (one) Capsule [...] days Quantity: 7 {Tablet} Refills: 0 Ordered:15-Dec-2010 Mast Taryn BETHEA Start : 15-Dec-2010 End : 15-Dec-2010 Discontinued [...] wellness exam (Z00.00, V70.0) Comments: 03-16. nmammo -14, BD -, colonscopy fall , reveiwed with patient all questions. due for [...] good saw Dr. silverio. will follow up withhi 08-14 Status: Inactive as of 19-Mar-2015 Other [...] 2013 Dr. Hernandez Hysterectomy, Total Completed Comments: 1970 Date Value Details 31-Mar-2018 Urgent Care Visit Report Result: Comments: See Note; NOTES: [facility] [address] [place], [place] [address] OFFICE VISIT Date of Service: 03/31/18 MR#: [id number] Acct: [id number] Name: GAYATRI NAQVI Rep #: [id number] : 1935 Provider: RHODA Cisse Age/Sex: 82/F Location: [facility] Status: Signed Intake Vital Signs03/31/18 Height 5 [...] Medications New: nitrofurantoin monohyd/m-cryst 100 mg (Macrobid) [id number] mg PO Q12H 7 days UTI N39.0 [...] Visit Report Result: Comments: See Note; NOTES: [facility] [address] [place] [address]. [address] [place] [address] OFFICE VISIT Date of Service: 02/28/18 MR#: [id number] Acct: [id number] Name: GAYATRI NAQVI Rep #: [id number] : 1935 Provider: Romel Silverio MD Age/Sex: 82/F Location: [facility] Status: Signed HPI HPI Details: GAYATRI [...] Signature: Date (if applicable) CC: Nguyen Santana FUEL TRUCK DRIVER; Dayna Byrne MD 09-Feb-2018 Urgent Care Visit Report Result: Comments: See Note; NOTES: [address] [address] OFFICE VISIT Date of Service: 02/09/18 MR#: [id number] Acct: [id number] Name: GAYATRI NAQVI Rep #: [id number] : 1935 Provider: Anjel DUONG Age/Sex: 82/F Location: [facility] Status: Signed Intake Vital Signs02/09/18 Height 5 [...] Result: Comments: See Note; NOTES: [facility] [address] [place] [address] OFFICE VISIT Date of Service: 01/26/18 MR#: [id number] Acct: [id number] Name: GAYATRI NAQVI Rep #: [id number] : 1935 Provider: Anjel DUONG Age/Sex: 82/F Location: [facility] Status: Signed Intake Vital Signs01/26/18 Height 5 [...] changes Exam Const General: cooperative, healthy appearing [facility] Head: normal to inspection Ears: hearing grossly [...] the above. This note was generated with ipvive dictation software. It may contain incorrect words, [...] Result: Comments: See Note; NOTES: [facility] Imaging Services [address] [place] [address] Lower Ext Joint Only (Routine) MR#: [id number] Acct: [id number] Name: GAYATRI NAQVI Anselmo Rep # : [id number] : 1935 F 81 From: Gianluca Camarena MD PCP: Nguyen Santana Status: REG CLI Study: Lower Ext Joint Only (Routine) Date of Exam: 07/13/17 Exam# [id number] Ordering Dr: Nguyen Santana STUDY: MRI RIGHT [...] , Service support , CC: Nguyen Santana Damage Assessor: Signed 07-Jul-2017 PT D/C Summary (1) Result: Comments: See Note; NOTES: [facility] [address] [place] [address]. [address] [place] [address] Fax REHABILITATION SERVICES DISCHAR GE SUMMARY MR#: [id number] Acct: [id number] Name: GAYATRI NAQVI Rep #: [id number] : 1935 81 From: Levon Jay DPT, OCS, CSCS Referring Dr.: Nguyen Santana Status: REG RCR Insurance: [employer] HP - PT D/C Summary It has been my pleasure to treat GAYATRI NAQVI under orders from Nguyen Santana, for the diagnosis of R knee pain for a total of 7 visit(s). Discharge Date: 07/06/17 Plea se see the following information for a summary [...] degeneratwed medial knee. MRI is approp. Medial regrinder operator brace may be approp after MRI if other options not available(injection, Ortho) If there are questions or concerns regarding this patient's physical therapy, please feel free to call me at [phone]. Thank you for the referral of this patient. Sincerely, Levon Jay DPT, OC <Electronically signed by PITO Colunga DPT, CSCS> 07/07/17 0642 CC: Nguyen Santana EBG Signed 21-Jun-2017 Inital Evaluation (1) - PT Result: Comments: See Note; NOTES: [facility] [address] [facility] [place] [address] Fax REHABILITATION SERVICES INITIAL EVALUATION MR#: [id number] Acct: [id number] Name: GAYATRI NAQVI Rep #: [id number] : 1935 81 From: PITO Colunga DPT, CSCS Referring Dr.: Nguyen Santana Status: REG RCR Insurance: [employer]IC[employer] Patient's Visit Information GAYATRI NAQVI is a 81 year old F referred to Physical Therapy by Nguyen Santana with a diagnosis of R knee pain. Date of Evaluation: 06/20/17 Physical Therapist: Levon Jay DPT, DORA - Visit Plan Frequency: 3x /Week Duration: [...] Result: Comments: See Note; NOTES: [facility] Medical Records Department [address] [place] [address] Discharge Instruction 06/06/172316 MR#: [id number] Acct: [id number] Name: MONET NAQVI Rep #: [id number] : 1935 81 From: Po Herrera MD [...] your Primary Care Provider. Call [facility] ([phone]) or rep ort to the closest Emergency Room. Call 911 if necessary. 06/06/172317 <Electronically signed by Po Herrera MD> Date Po Herrera MD Cosigner Signature (If Indicated): Date CC: Nguyen Santana 06-Jun-2017 Emergency Department Summary Result: Comments: See Note; NOTES: [facility] Medical Records Department [address] [place] [address] Emergency Department Summary 06/06/172311 MR#: [id number] Acct: [id number] Name: GAYATRI NAQVI Rep #: [id number] : 1935 81 From: Po Herrera MD [...] Patient: Chief Complaint: Lower Extremity Injury Referrals: BrittanyNguyen jurado [Primary Care Provider] - W hat to do if you have Problems For any increased pain, shortness of breath, bleeding, nausea or vomiting, chest pain, or any unexpected problems, contact your Primary Care Provider. Call [facility] ([phone]) or report to the closest Emergency Room. Call 911 if necessary. 06/06/17 2317 <Electronically signed by Po Herrera MD> Date Po Herrera MD Cosigner Signature (If Indicated): Date CC: Nguyen Santana 06-Jun-2017 Knee 4 or More Views Result: Comments: See Note; NOTES: [facility] Imaging Services [address] [place] [address] Knee 4 or More Views MR#: [id number] Acct: [id number] Name: GAYATRI NAQVI Rep #: [id number] : 1935 F 81 From: Stephanie Diaz MD PCP: Nguyen Santana Status: REG ER Study: Knee 4 or More Views Date of Exam: 06/06/17 Exam# [id number] Ordering Dr: Po Herrera MD STUDY: X-RAY [...] Stephanie Diaz MD at 23:01 EDT Tel [phone], Service support , CC: Nguyen Santana; Po Herrera MD Damage Assessor: Signed 06-Jun-2017 Liver Result: Comments: See Note; NOTES: [facility] Imaging Services [address] [facility] [place] [address] Liver MR#: [id number] Acct: [id number] Name: GAYATRI NAQVI Rep #: [id number] : [birth year] F 81 From: Rogelio Kumar MD PCP: Nguyen Santana Status: REG CLI Study: Liver Date of Exam: 06/06/17 Exam# [id number] Ordering Dr: Nguyen Santana STUDY: ABDOMINAL ULTRASOUND [...] Kumar MD at 11:47 EDT Tel [phone], Service support , CC: Nguyen Santana Damage Assessor: Signed 27-Mar-2017 Echocardiogram Complete Result: Comments: See Note; NOTES: [facility] Cardiovascular Services [address] [place] [address] Echo Complete 03/24/17 0822 MR#: [id number] Acct: [id number] Name: DRISSGAYATRINICOLE Guan ep #: [id number] : 1935 81 From: Romel Silverio MD Attending Dr: Romel Silverio MD Status: REG CLI Ordering Dr: Romel Silverio MD Date: 03/24/17 Location: [facility] Sex: F C Admitted: Reason For [...] Dictated: 03/24/17 0 822 Date Transcribed: 03/24/171832 Damage Assessor: Signed 24-Mar-2017 Nuclear Stress Test - Treadmil Result: Comments: See Note; NOTES: [facility] Imaging Services [address] [place] [address] Alexus 4d Nuclear Stress Test - Treadmil MR#: [id number] Acct: [id number] Name: JULIUS NAQVI Rep #: [id number] : 1935 81 From: Romel Silverio MD [...] 71%. Romel Silverio MD T: NTS JOB: [id number] 03/25/17 0927 <Electronically signed by Romel iSlverio MD> Date Romel Silverio MD CC: Nguyen Santana; Romel Silverio MD Date Dictated: 03/24/17 1146 Date Transcribed: 03/24/17 1146 Damage Assessor: Signed 03-Mar-2017 Chest PA and Lateral Result: Comments: See Note; NOTES: [facility] Imaging Services [address] [place] [address] Verdana 4d Chest PA and Lateral MR#: [id number] Acct: [id number] Name: GAYATRI NAQVI Rep #: [id number] : 1935 F 81 From: Rogelio Kumar MD PCP: Nguyen Santana Status: REG CLI Study: Chest PA and Lateral Date of Exam: 03/03/17 Exam# [id number] Ordering Dr: Romel Silverio MD STUDY : [...] Kumar MD at 13:42 EDT Tel [phone], Service support , CC: Nguyen Santana; Romel Silverio MD Damage Assessor: Signed 12-Dec-2016 Abdomen/Pelvis without Cont Result: Comments: See Note; NOTES: [facility] Imaging Services [address] [place] [address] Verdana 4d Abdomen/Pelvis without Cont MR#: [id number] Acct: [id number] Name: GAYATRI NAQVI Rep #: [id number] : 1935 F 81 From: Philipp Moody MD PCP: Nguyen Santana Status: REG CLI Study: Abdomen/Pelvis without Cont Date of Exam: 12/12/16 Exam# [id number] Ordering Dr: Nguyen Santana JULIANN DY: CT [...] of the osseous structures. ORD ER #: [id number] CT/Abdomen/Pelvis without Cont IMPRESSION: Fatty liver. There are multiple colonic diverticula consistent with diverticulosis. 21mm hypodense lesion in the inferior right lobe of the l iver. This is incompletely evaluated and on contrast enhanced study. Other findings as above. Electronically Signed: Philipp Moody MD at 22:28 EDT , Service support , CC: Nguyen Santana Damage Assessor: Signed 22-Sep-2016 Upper Ext Joint Only(Routine) Result: Comments: See Note; NOTES: [facility] Imaging Services [address] [place] [address] Verdana 4d Upper Ext Joint Only(Routine) MR#: [id number] Acct: [id number] Name: BERNICE NAQVI GERALDINE E Rep #: [id number] : 1935 F 80 From: Emmanuel Guido MD PCP: Nguyen Santana Status: REG CLI Study: Upper Ext Joint Only(Routine) Date of Exam: 09/22/16 Exam# [id number] Ordering Dr: Adilene Byrd DO STUDY: MRI [...] MD at 17:06 EST , Service support [phone], CC: Nguyen Santana; Sonia Byrd DO Damage Assessor: Signed 08-Sep-2016 Shoulder min 2 Views Result: Comments: See Note; NOTES: [facility] Imaging Services [address] [place] [address] Verdana 4d Shoulder min 2 Views MR#: [id number] Acct: [id number] Name: GAYATRI NAQVI Rep #: [id number] : 1935 F 80 From: Emmanuel Guido MD PCP: Nguyen Santana Status: REG CLI Study: Shoulder min 2 Views Date of Exam: 09/08/16 Exam# [id number] Ordering Dr: Sonia Byrd DO STUDY: X-RA [...] at 11:28 EST Tel , Service support [phone], CC: Nguyen Byrd DO Damage Assessor: Signed 06-Sep-2016 Dexa Bone Density Study (HP) Result: Comments: See Note; NOTES: [facility] Imaging Services [address] [place] [address] Howarddageraldine 4d Dexa Bone Density Study (HP) MR#: [id number] Acct: [id number] Name: LIDA NAQVI Rep #: [id number] : 1935 F 80 From: Rogelio Kumar MD PCP: Nguyen Santana Status: REG CLI Study: Dexa Bone Density Study (HP) Date of Exam: 09/06/16 Exam# [id number] Ordering Dr: Joi Santana STUDY: DUAL ENERGY [...] Rogelio Kumar MD at 13:43 EST Tel [phone], Service support [phone], CC: Nguyen Santana Damage Assessor: Signed 24-May-2016 PT D/C Summary (1) Result: Comments: See Note; NOTES: [facility] [address] [place] [address]. [address] [place] [address] Fax REHABILITATION SERVICES [facility] RG SUMMARY MR#: [id number] Acct: [id number] Name: GAYATRI NAQVI Rep #: [id number] [...] ENCOURAGED PA DEN[place] TO CONTACT Cruzito PAYTON CHON IF SHE DOES NOT CONTINUE TO IMPROVE OVER THE NEXT MONTH - D/C Information If there are questions or concerns regarding this patient's physical therapy, please feel free to call me at [phone]. Thank you for the referral of this patient. Sincerely, Norma Thomas <Electronically signed by Cert. BALDOMERO Osborne PTT> 05/24/16 1344 CC: Miranda Bueno MD ; Edson Franks DO TAPAN Signed 18-Apr-2016 Re-Evaluation - PT (1) Result: Comments: See Note; NOTES: [facility] [address] [place] [address]. [address] [place] [address] Fax [facility] MR#: [id number] Acct: [id number] Name: GAYATRI NAQVI Rep #: [id number] : 1935 80 From: Norma Thomas PT, Cert. MDT Referring Dr.: Ander Franks DO Status: REG RCR Insurance: [...] do not hesitate to contact me at [phone] by phone or if you have que stions or concerns regarding this new plan of care! Sincerely, Norma Thomas <Electronically signed by Norma Thomas PTCert. ALEXANDRET> 04/18/16 1303 CC: Miranda Bueno MD; Edson mead DO TAPAN Signed For Medicare only, by signing this I certify the plan of care. Physicians Signature Date 16-Mar-2016 Inital Evaluation (1) - PT Result: Comments: See Note; NOTES: [facility] [address] [place] [address] Fax REHABILITATION [facility] INITIAL EVALUATION MR#: [id number] Acct: [id number] Name: GAYATRI NAQVI Rep #: [id number] : 1935 80 From: Cert. BALDOMERO Osborne PTT Referring Dr.: Edson Franks DO Status: RE [...] to be FAXED BACK to us at [phone] for Medicare purposes. Please let me know if there are questions or concerns regarding this plan of care. Physician Signature:__ Date: <Electronically signed by Norma Thomas PT, Cert. MDT> 03/16/16 1323 CC: Miranda Bueno MD; Edson Franks DO TAPAN Signed For Medicare only, by signing this I certify the plan of care. Physicians Signature Date 06-Mar-2016 Discharge Instruction Result: Comments: See Note; NOTES: [facility] Medical Records Department [address] [place] [address] Discharge Instruction 03/04/16 1919 MR#: [id number] Acct: [id number] Name: GAYATRI NAQVI Rep #: [id number] : 1935 80 From: Pastor Mccain MD [...] problems, contact your doctor. Call [facility] ([phone]) or report to the closest Emergency Room. Call 911 if necessary. 03/06/16 0704 <Electronical ly signed by Pastor Mccain MD> Date Pastor Mccain MD Cosigner Signature (If Indicated): Date CC: Miranda Bueno MD 06-Mar-2016 Emergency Department Summary Result: Comments: See Note; NOTES: [facility] Medical Records Department [address] [place] [address] Emergency Department Summary MR#: [id number] Acct: [id number] Name: GAYATRI NAQVI Rep #: [id number] : 1935 80 From: Pastor Mccain MD PCP: Miranda Bueno MD Status: [facility] ER DATE OF SERVICE: 03/04/2016 METHOD OF [...] Khloe Padilla C: Miranda Alba MD T: [facility] B: [id number] 03/06/16 0704 <Electronically signed by Pastor Mccain MD> Date Pastor Mccain MD Cosigner Signature (If Indicated): Date CC: Miranda Bueno MD; Wesley Alba MD Date Dictated: 03/05/161121 Date Transcribed: 03/05/161121 Damage Assessor: Signed 04-Mar-2016 Shoulder One View Result: Comments: See Note; NOTES: [facility] Imaging Services [address] [place] [address] Verdana 4d Shoulder One View MR#: [id number] Acct: [id number] Name: STEPHANIE NAQVI Rep #: [id number] : 1935 F 80 From: Bernadette Daniel MD PCP: Miranda Bueno MD Status: REG ER Study: Shoulder One View Date of Exam: 03/04/16 Exam# [id number] Ordering Dr: Pastor Mccain MD STUDY: X-RAY [...] MD at 19:00 EDT , Service support [phone], RAD/Shoulder One View IMPRESSION: Anatomic relocation of the left glenohume ral joint without fracture deformity. Electronically Signed: Bernadette Daniel MD at 19:00 EDT , Service support [phone], CC: Miranda Xiao i, MD; Pastor Mccain MD Damage Assessor: Signed 04-Mar-2016 Hip 2-3 Views with Pelvis Result: Comments: See Note; NOTES: [facility] Imaging Services [address] [place] [address] Verdana 4d Hip 2-3 Views with Pelvis MR#: [id number] Acct: [id number] Name: GAYATRI ROSA Rep #: [id number] : 1935 F 80 From: Bernadette Daniel MD PCP: Miranda Bueno MD Status: REG ER Study: Hip 2-3 Views with Pelvis Date of Exam: 03/04/16 Exam# [id number] Ordering Dr: Pastor Mccain MD STUDY: X-RAY [...] MD at 17:17 EDT , Service support [phone], RAD/Hip 2-3 Views with Pelvis IMPRESSION: Normal x-ray examination of the pelvis and hip. Nilei willam Signed: Bernadette Daniel MD at 17:17 EDT , Service support [phone], CC: Miranda Bueno MD; Pastor Mccain MD Damage Assessor: Signed 04-Mar-2016 Shoulder min 2 Views Result: Comments: See Note; NOTES: [facility] Imaging Services [address] [place] [address] Verdana 4d Shoulder min 2 Views MR#: [id number] Acct: [id number] Name: Mayra NAQVI Rep #: [id number] : 1935 F 80 From: Bernadette Daniel MD PCP: Miranda Bueno MD Status: REG ER Study: Shoulder min 2 Views Date of Exam: 03/04/16 Exam# [id number] Ordering Dr: Christopher Mccain MD STUDY: X-RAY - LEFT SHOULDER [...] MD at 17:24 EDT , Service support [phone], Fax RAD/Shoulder min 2 Views IMPRESSION: Complete anterior dislocation of the left shoulder without identified fracture. Electronically Signed: Bernadette Daniel MD at 17:24 EDT , Service support [phone], CC: Miranda Bueno MD; Pastor Mccain MD Damage Assessor: Signed 04-Mar-2016 Wrist min 3 Views Result: Comments: See Note; NOTES: [facility] Imaging Services [address] [place] [address] Verdana 4d Wrist min 3 Views MR#: [id number] Acct: [id number] Name: STEPHANIE NAQVI Rep #: [id number] : 1935 F 80 From: Bernadette Daniel MD PCP: Miranda Bueno MD Status: REG ER Study: Wrist min 3 Views Date of Exam: 03/04/16 Exam# [id number] Ordering Dr: Pastor Mccain MD STUDY: X-RAY [...] at 17:12 EDT , Se rvice support [phone], RAD/Wrist min 3 Views IMPRESSION: Negative for fracture or dislocation. Electronically Signed: Bernadette Daniel MD at 17:12 EDT , Service support [phone], CC: Miranda Bueno MD; Pastor Mccain MD Damage Assessor: Signed 24-Mar-2015 Upper Ext Joint Only(Routine) Result: Comments: See Note; NOTES: [facility] Imaging Services [address] [place] [address] MRI Report MR#: [id number] Acct: [id number] Name: GAYATRI NAQVI Rep #: [id number] : 1935 F 79 From: Gianluca Camarena MD PCP: Miranda Bueno MD Status: REG CLI Study: Upper Ext Joint Only(Routine) Date of Exam: 03/24/15 Exam# [id number] Ordering Dr: Miranda Bueno MD STUDY: MRI [...] at 15:58 EDT Tel , Service support [phone], CC: Miranda Bueno MD Damage Assessor: Signed 18-Oct-2014 Emergency Department Summary Result: Comments: See Note; NOTES: [facility] Medical Records Department [address] [place] [address] Emergency Department Summary MR#: [id number] Acct: [id number] Name: Mayra NAQVI RIZWANJered Anselmo Rep #: [id number] : 1935 78 From: Stephanie Andersen MD PCP: Miranda Bueno MD Status: [facility] ER DATE OF SERVICE: 10/18/2014 CHIEF COMPLAINT: [...] injury. Stephanie Andersen MD T: NTS JOB: [id number] 10/18/14 160 6 <Electronically signed by Stephanie Andersen MD> Date Stephanie Andersen MD CC: Miranda Bueno MD Date Dictated: 10/18/14 1050 Date Transcribed: 10/18/14 1050 Damage Assessor: Signed 18-Oct-2014 Discharge Instruction Result: Comments: See Note; NOTES: [facility] Medical Records Department [facility] [place] [address] Discharge Instruction 10/18/14 1040 MR#: [id number] Acct: [id number] Name: GAYATRI NAQVI Rep #: [id number] : 1935 78 From: Stephanie Andersen MD [...] Result: Comments: See Note; NOTES: [facility] Imaging Services [address] [place] [address] CAT Scan Report MR#: [id number] Acct: [id number] Name: GAYATRI NAQVI Rep #: [id number] : 1935 F 78 From: Jacklyn Vázquez MD PCP: Miranda Bueno MD Status: REG ER Study: Brain/Head without Contrast Date of Exam: 10/18/14 Exam# [id number] Ordering Dr: Stephanie Andersen MD STUDY: C [...] MD at 10:34 EST , Service support [phone], CC: Miranda Bueno MD; Stephanie Andersen MD Damage Assessor: Signed 18-Oct-2014 Spine Cervical without Contras Result: Comments: See Note; NOTES: [facility] Imaging Services [address] [place] [address] CAT Scan Report MR#: [id number] Acct: [id number] Name: GAYATRI NAQVI Rep #: [id number] : 1935 F 78 From: Jacklyn Vázquez MD PCP: Miranda Bueno MD Status: REG ER Study: Spine Cervical without Contras Date of Exam: 10/18/14 Exam# [id number] Ordering Dr: Stephanie Andersen MD STUDY : [...] MD at 10:45 EST , Service support [phone], CC: Miranda Bueno MD ; Stephanie Andersen MD Damage Assessor: Signed 13-Aug-2014 [facility] Result: Comments: See Note; NOTES: [facility] Imaging Services [address] [place] [address] Breast Imaging Report MR#: [id number] Acct: [id number] Name: GAYATRI NAQVI Rep #: [id number] : 1935 F 78 From: Rogelio Kumar MD PCP: Miranda Bueno MD Status: REG CLI Exam# [id number] Ordering Dr: Miranda Bueno MD MAMMOGRAPHY - [...] Kumar MD at 10: 39 EST Tel [phone], Service support [phone], CC: Miranda Bueno MD Damage Assessor: Signed 13-Aug-2014 Dexa Bone Density Study (HP) Result: Comments: See Note; NOTES: [facility] Imaging Services [address] [place] [address] Bone Density Report MR#: [id number] Acct: [id number] Name: GAYATRI NAQVI Rep #: [id number] : 1935 F 78 From: Rogelio Kumar MD PCP: Mirnada Bueno MD Status: REG CLI Study: Dexa Bone Density Study () Date of Exam: 08/13/14 Exam# [id number] Ordering Dr: Miranda Bueno MD STUDY: DUAL [...] Rogelio Kumar MD at 13:55 EST Tel [phone], Service support [phone], CC: Miranda Bueno MD Damage Assessor: Signed 12-Aug-2013 [facility] Digital & CAD Result: Comments: See Note; NOTES: [facility] Imaging Services [address] [place] [address] Breast Imaging Report MR#: [id number] Acct: [id number] Name: GAYATRI NAQVI Rep #: [id number] : 1935 F 77 From: Rogelio Kumar MD PCP: Miranda Bueno MD Status: REG I Exam# [id number] Ordering Dr: Miranda Bueno MD MAMMOGRAPHY - [...] August 12 013 at 11:28:57 AM EST [phone] Electronically Signed GP/GP If you are the referring physician and would like to consult with the radiologist who provided this interpretation, please contact Rogelio Kumar M.D. at [phone]. If this radiologist is unavailable, you will be directed to another radiologist to assist. If you are a patient with a question regarding this report, pleas e contact your referring physician directly. Professional Interpretation Provided By: tritrue, Phone , These documents contain legally protected [...] of these documents. CC: Miranda Bueno MD Damage Assessor: Signed Immunization Name Dates Details Zoster (shingles) [...] smoker Vital Signs Date Test Result Details :08 Temperature 97.4 f Comments: Method: Temporal [...] Area Calculated 1.66 m2 :23 Comments: visual ycxjcu-NN-63/40, OS-20/40, B/L-20/40 Temperature 98.1 f Comments: Method: [...] 0.00 cm Results Date Description Value Details 73-Bsv-150746:57 Metabolic Panel, Comprehensive Comments: PATIENT NOT FASTINGPERFORMED BY: LabCoAncor[facility] Psychiatric HospitalVljfxu8551 [facility] [id number] (66955) ALT (SGPT) 28 [iU]/L (Normal) Range: 0-32 [...] 8-27 Glucose 90 mg/dL (Normal) Range: 65-99 08-Hcl-864392:57 TSH (48971) Comments: PATIENT NOT FASTINGPERFORMED BY: LabCoAncor[facility] Psychiatric HospitalDszxsi7910 [facility] [id number] TSH 1.450 {uIU/mL} (Normal) Range: 0.450-4.500 80-Tjp-731790:57 CBC, Platelets & Auto Diff Comments: PATIENT NOT FASTINGPERFORMED BY: LabCoAn[facility] Psychiatric HospitalMbzhqj8329 [facility] [id number] (16194) Immature Grans (Abs) 0.0 {x10E3/uL} (Normal) Range: [...] 3.77-5.28 WBC 7.8 {x10E3/uL} (Normal) Range: 3.4-10.8 93-Agc-562070:00 URINE CELINE CULTURE-IDENTIFICATN Comments: PATIENT NOT FASTINGPERFORMED BY: LATA [facility] Zooftw3105 [facility] [id number] Information: SRC:UC (20140) Result 1 MUG (Normal) Comments: Mixed urogenital flora10,000-25,000 colony forming units per mL Urine Final report (Normal) Culture,Comprehensive 60-Gvd-532437:21 Urinalysis, Office (83905) UA - LEUKOCYTE ESTERASE Negative (Normal) UA - NITRITE Negative (Normal) URINE UROBILINGN JOSÉ MIGUEL TIMED Normal mg/dL (Normal) UA - PROTEIN Negative mg/dL (Normal) UA - PH 7 (Normal) UA - BLOOD Negative (Normal) UA - SPECIFIC GRAVITY 1.010 (Normal) UA - KETONES Moderate mg/dL (Normal) UA - BILIRUBIN Negative (Normal) UA - GLUCOSE Negative (Normal) 88-Qih-26010:30 Culture, Urine Comments: [facility] [address] [place] [address], [address] CUUR See Note (Normal) Comments: Urine CultureORGANISM 1: Mixed Gram Positive OrganismsColony Count 11,000-25,000MIX CULTURE Mixed contaminants. Submit a new specimen if indicated. :30 Urinalysis, Complete Comments: How was Urine Obtained? CLEAN [facility] Epvmzqwlbo8390 [facility] [place], [place], [id number] MUCUS, URINE 0 SEEN {/hpf} (Normal) BACTERIA [...] (Normal) CLARITY Clear (Normal) COLOR Yellow (Normal) 05-Tmn-401601:39 Culture, Urine Comments: [facility] [address] [place], [place], [address] CUUR See Note (Normal) Comments: Urine CultureBelow infection level. ORGANISM 1: Mixed Gram Positive OrganismsColony Count 1000-10,000 50-Pzn-578635:39 Urinalysis, Complete Comments: How was Urine Obtained? TOBACCO CONDITIONER TO SPECIFYGrant Hospital [address]gmyi[address] [place], [place], [id number] MUCUS, URINE 0 SEEN {/hpf} (Normal) BACTERIA [...] (Normal) CLARITY Clear (Normal) COLOR Yellow (Normal) 43-Ikm-02643:05 FCLZV-TWWUKFXVEWQ-ZDVQB (76125) Comments: PATIENT WAS FASTINGPERFORMED BY: Yippy70 [facility] [id number] AFP, Serum, Tumor Marker 3.0 ng/mL (Normal) Range: 0.0-8.3 Comments: Kristi ECLIA methodology :05 TSH (THYROID STIMULATING Comments: PATIENT WAS FASTINGPERFORMED BY: Yippy70 [facility] [id number] HORMONE) (51962) TSH 2.890 {uIU/mL} (Normal) Range: 0.450-4.500 :05 LIPID PANEL (97682) Comments: PATIENT WAS FASTINGPERFORMED BY: PayMinsAncora Psychiatric HospitalMplhtf0255 [facility] [id number] LDL/HDL Ratio 1.9 {ratio_units} (Normal) Range: 0.0-3.2 [...] Auto Diff Comments: PATIENT WAS FASTINGPERFORMED BY: Uscreen.tv Fxfgzc9346 [facility] [id number] (53550) Immature Grans (Abs) 0.0 {x10E3/uL} (Normal) Range: [...] 3.77-5.28 WBC 6.4 {x10E3/uL} (Normal) Range: 3.4-10.8 12-Sss-10382:05 Metabolic Panel, Comprehensive Comments: PATIENT WAS FASTINGPERFORMED BY: LabCoAncor[facility] Psychiatric HospitalWqcmun6558 [facility] [id number] (81264) ALT (SGPT) 31 [iU]/L (Normal) Range: 0-32 [...] mg/dL (Normal) Range: 65-99 :49 Rapid Flu (34174 x 2) Influenza A Ag Negative (Normal) :59 THROAT CULTURE (78220) Comments: PATIENT NOT FASTINGPERFORMED BY: PayMinsAncora Psychiatric HospitalLiyikq7009 [facility] [id number] Information: SRC:TH Result 1 RRF (Normal) Comments: Routine respiratory graeme Upper Respiratory Culture Final report (Normal) :54 Rapid Strep Test, Office (17181) Rapid Strep Test, Office Negative (Normal) :47 HgA1C , Office (23938) HgA1C , Office 5.8 % (Normal) Range: 4.6 - 7.1 :53 HEPATITIS PANEL (37038) Comments: today; PATIENT NOT FASTINGPERFORMED BY: [facility]6370 [facility] [id number] Hep C Virus Ab <0.1 {s/co_ratio} (Normal) Range: 0.0-0.9 Comments: Negative: < 0.8 Indeterminate: 0.8 - 0.9 Positive: > 0.9 . The CDC recommends that a positive HCV antibody result be followed up with a HCV Nucleic Acid Amplification test (774046). Hep B Core Ab, IgM Negative (Normal) HBsAg Screen Negative (Normal) Hep A Ab, IgM Negative (Normal) :53 HEPATIC FUNCTION PANEL Comments: today; PATIENT NOT FASTINGPERFORMED BY: [facility]6370 [facility] [id number] (24515) ALT (SGPT) 29 [iU]/L (Normal) Range: 0-32 AST (SGOT) 30 [iU]/L (Normal) Range: 0-40 Alkaline Phosphatase, S 53 [iU]/L (Normal) Range: 39-117 Bilirubin, Direct 0.18 mg/dL (Normal) Range: 0.00-0.40 Bilirubin, Total 0.5 mg/dL (Normal) Range: 0.0-1.2 Albumin, Serum 4.7 g/dL (Normal) Range: 3.5-4.7 Protein, Total, Serum 6.5 g/dL (Normal) Range: 6.0-8.5 1-Mqb-273813:53 TNAGC-JYPPPMAYOKV-FRGBV (16085) Comments: today; PATIENT NOT FASTINGPERFORMED BY: [facility] Flkaef[address] [place] [id number] AFP, Serum, Tumor Marker 3.0 ng/mL (Normal) Range: 0.0-8.3 Comments: Kristi ECLIA methodology 43-Cbf-965660:55 Basic Metabolic Profile (BMP) Comments: Order Date: 03/01/17Order Info: 0667-1 - *BMPOrder Info: 3026-2 - *T4 (Total)Comments: Reason:Order Info: 3016-3 - *TSHComments: Reason:[facility] [address] [place], [place], [address] ; cardio GAP 6 (Normal) Range: 5-15 [...] 7-18 GLU 96 mg/dL (Normal) Range: 70-110 34-Kmv-288505:55 CBC-Complete Blood Cnt No Diff Comments: Order Date: 03/01/17Order Info: 23154-6 - *CBC without DiffComments: Reason:[facility] [address] [place], [place], [id number] MPV 9.6 fL (Normal) Range: 6.2-12.0 PLT [...] *T4 (Total)Comments: Reason:Order Info: 3016-3 - *TSHComments: Reason:[facility] [address] [place], [address] T4 THYROXIN 9.3 ug/dL (Normal) Range: 4.8-13.9 20-Jmw-298021:55 Thyroid Stim Hormone (TSH) Comments: Order Date: 03/01/17Order Info: 0667-1 - *BMPOrder Info: 3026-2 - *T4 (Total)Comments: Reason:Order Info: 3016-3 - *TSHComments: Reason:[facility] [address] [place], [place], [address] TSH 1.33 {uIU/mL} (Normal) Range: 0.358-3.74 7-Xhm-707072:55 Urinalysis, Office (31243) UA - LEUKOCYTE ESTERASE Negative (Normal) UA - NITRITE Negative (Normal) URINE UROBILINGN JOSÉ MIGUEL TIMED Normal mg/dL (Normal) UA - PROTEIN Negative mg/dL (Normal) UA - PH 7.5 (Normal) UA - BLOOD Negative (Normal) UA - SPECIFIC GRAVITY 1.020 (Normal) UA - KETONES Negative mg/dL (Normal) UA - BILIRUBIN Negative (Normal) UA - GLUCOSE Negative (Normal) 1-Mut-790595:17 URINE CELINE CULTURE-JOSÉ MIGUEL COL Comments: PATIENT NOT FASTINGPERFORMED BY: PayMinsAncora Psychiatric HospitalYsiupk0542 [facility] [id number] Information: SRC:UC COUNT (04701) Result 1 MUG (Normal) Comments: Mixed urogenital flora25,000-50,000 colony forming units per mL Urine Final report (Normal) Culture,Comprehensive 6-Rop-525997:05 Urinalysis, Office (16844) UA - LEUKOCYTE ESTERASE Small (Normal) UA - NITRITE Negative (Normal) URINE UROBILINGN JOSÉ MIGUEL TIMED Normal mg/dL (Normal) UA - PROTEIN Negative mg/dL (Normal) UA - PH 7 (Normal) UA - BLOOD Negative (Normal) UA - SPECIFIC GRAVITY 1.015 (Normal) UA - KETONES Small mg/dL (Normal) UA - BILIRUBIN Small (Normal) UA - GLUCOSE Negative (Normal) 07-Nov-20160:00 Culture, Urine Comments: [facility] [address]amcdfus[address] [facility] [place], [address] CUUR See Note (Normal) Comments: Urine CultureCulture exhibits no growth. :45 TSH (61419) Comments: PATIENT WAS FASTINGPERFORMED BY: PayMinsAncora Psychiatric HospitalNaudup2435 [facility] [id number] TSH 2.950 {uIU/mL} (Normal) Range: 0.450-4.500 :45 Lipid Panel (55771) Comments: PATIENT WAS FASTINGPERFORMED BY: [facility]6370 [facility] [id number]; OV 08/23 LDL/HDL Ratio 2.2 {ratio_units} (Normal) [...] Auto Diff Comments: PATIENT WAS FASTINGPERFORMED BY: LATA Us[employer]tv Utosfr2995 [facility] [id number] (30472) Immature Grans (Abs) 0.0 {x10E3/uL} (Normal) Range: [...] Panel, Comprehensive Comments: PATIENT WAS FASTINGPERFORMED BY: [employer]6370 [facility] [id number] (98675) ALT (SGPT) 30 [iU]/L (Normal) Range: 0-32 [...] Glucose, Serum 99 mg/dL (Normal) Range: 65-99 4-Jyh-350356:00 MICROALBUMIN: CREATININE RATIO Comments: PATIENT WAS FASTINGPERFORMED BY: EnergyCoAncora Psychiatric HospitalUdreku1417 [facility] [id number] (95344) AND (84537) Microalb/Creat Ratio 9.2 {mg/g_creat} (Normal) Range: 0.0-30.0 Microalbumin, Urine 28.4 ug/mL (Normal) Creatinine, Urine 307.2 mg/dL (Normal) 7-Lzs-798296:00 METABOLIC PANEL, COMPREHENSIVE Comments: PATIENT WAS FASTINGPERFORMED BY: [facility] Oprnio7985 [facility] [id number] (09372) ALT (SGPT) 23 [iU]/L (Normal) Range: 0-32 [...] Glucose, Serum 92 mg/dL (Normal) Range: 65-99 1-Djz-283884:00 LIPID PANEL (05224) Comments: PATIENT WAS FASTINGPERFORMED BY: [facility] Lmtlrh1261 [facility] [id number]; fu 6-13 with [facility] LDL/HDL Ratio 1.9 {ratio_units} (Normal) Range: [...] Cholesterol, Total 211 mg/dL (Abnormal) Range: 100-199 1-Hnk-282667:00 CBC with auto diff Comments: PATIENT WAS FASTINGPERFORMED BY: LabCoAncora Psychiatric HospitalQzduho8832 [facility] [id number] Information: [id number] (13249) Immature Grans (Abs) 0.0 {x10E3/uL} (Normal) Range: [...] 3.77-5.28 WBC 5.5 {x10E3/uL} (Normal) Range: 3.4-10.8 17-Ptd-846658:55 Urinalysis, Office (01607) UA - LEUKOCYTE ESTERASE Small (Normal) UA [...] Microscopic Examination Comments: PATIENT WAS FASTINGPERFORMED BY: [employer]63Overflow CafeNov[facility] [id number] Bacteria Moderate (Abnormal) Mucus Threads Present (Normal) Epithelial Cells (non renal) >10 {/hpf} (Abnormal) Range: 0 - 10 RBC 0-2 {/hpf} (Normal) Range: 0 - 2 WBC 11-30 {/hpf} (Abnormal) Range: 0 - 5 :10 CALCIFIDIOL (88162) VIT D 25 Comments: PATIENT WAS FASTINGPERFORMED BY: Ak[employer]6370 EarlySharesNov[facility] / [facility] [id number] Vitamin D, 25-Hydroxy 30.0 ng/mL (Normal) Range: 30.0-100.0 Comments: Vitamin D deficiency has been defined by the [place] of[place]icine and an Endocrine Society practice guideline as alevel of serum 25-OH vitamin D less than 20 ng/mL (1,2).The Endocrine Society went on to further define vitamin Dinsufficiency as a level between 21 and 29 ng/mL (2).1. IOM ([place] of Medicine). 2010. Dietary reference intakes for calcium and D. [place]oo [place]: The National Academies Press.2. Barb MF, Malachi NC, Bj MOREIRA, et al. Evaluation, treatment, and prevention of vitamin D deficiency: an Endocrine Society clinical practice guideline. JCEM. 2010; 96(7):1911-30. :10 URINALYSIS, W/ MICRO (46347) Comments: PATIENT WAS FASTINGPERFORMED BY: [facility] [place] [id number] Microscopic Examination See below: (Normal) Comments: Microscopic was indicated and was performed. Nitrite, Urine Negative (Normal) Urobilinogen,Semi-Qn 0.2 mg/dL (Normal) Range: 0.2-1.0 Bilirubin Negative (Normal) Occult Blood Negative (Normal) Ketones Negative (Normal) Glucose Negative (Normal) Protein 1+ (Abnormal) WBC Esterase 3+ (Abnormal) Appearance Cloudy (Abnormal) Urine-Color Yellow (Normal) pH 7.5 (Normal) Range: 5.0-7.5 Specific [place] 1.023 (Normal) Range: 1.005-1.030 07-Sep-20159:10 METABOLIC PANEL, COMPREHENSIVE Comments: PATIENT WAS FASTINGPERFORMED BY: [facility] Qkuihd6041 [facility] [id number] (94205) ALT (SGPT) 26 [iU]/L (Normal) Range: 0-32 [...] mg/dL (Normal) Range: 65-99 :10 LIPID PANEL (86376) Comments: PATIENT WAS FASTINGPERFORMED BY: PayMinsAncora Psychiatric HospitalVzzsra3977 [facility] [id number] LDL/HDL Ratio 1.9 {ratio_units} (Normal) Range: 0.0-3.2 [...] auto diff Comments: PATIENT WAS FASTINGPERFORMED BY: LabMountain View LocksmithAncora Psychiatric HospitalGsjogq8881 [facility] [id number] Information: [id number]; apt. 09-18-[birth year] (21669) Immature Grans (Abs) 0.0 {x10E3/uL} (Normal) Range: [...] With Differential/Platelet Comments: PATIENT WAS FASTINGPERFORMED BY: [facility]6370 [facility] [id number] Information: [id number] Immature Grans (Abs) 0.0 {x10E3/uL} (Normal) Range: [...] Panel (14) Comments: PATIENT WAS FASTINGPERFORMED BY: LabCo Vpfvss6582 [facility] [id number] ALT (SGPT) 24 [iU]/L (Normal) Range: 0-32 [...] Glucose, Serum 93 mg/dL (Normal) Range: 65-99 8-Regulo-73295:27 Lipid Panel With LDL/HDL Comments: PATIENT WAS FASTINGPERFORMED BY: LabM[facility]ocks[facility] Qmihoh2017 [facility] [id number] Ratio LDL/HDL Ratio 2.1 {ratio_units} (Normal) Range: [...] mg/dL (Abnormal) Range: 100-199 :27 Microalb/Creat Ratio, Rand Ur Comments: PATIENT WAS FASTINGPERFORMED BY: PayMins Spyewk5266 [facility] [id number]; has fu 03-17-15 will review with her then Microalb/Creat Ratio 9.1 {mg/g_creat} Range: 0.0-30.0 (Normal) Microalbumin, Urine 25.2 ug/mL (Abnormal) Range: 0.0-17.0 Creatinine, Urine 278.2 mg/dL (Abnormal) Range: 15.0-278.0 Vitamin D, 25-Hydroxy 31.1 ng/mL (Normal) Comments: PATIENT WAS FASTINGPERFORMED BY: LabM[facility] Pxvpsd6275 [facility] [id number] :27 Range: 30.0-100.0 Comments: Vitamin D deficiency has been defined by the [place] of[place]icine and an Endocrine Society practice guideline as alevel of serum 25-OH vitamin D less than 20 ng/mL (1,2).The Endocrine Society went on to further define vitamin Dinsufficiency as a level between 21 and 29 ng/mL (2).1. IOM ([place] of [employer]). 2010. Dietary reference intakes for calcium and D. [place]: The National Academies Press.2. Barb MF, Malachi NC, Bj MOREIRA, et al. Evaluation, treatment, and prevention of vitamin D deficiency: an Endocrine Society clinical practice guideline. JCEM. 2010; 96(7):1911-30. :35 Microscopic Examination Comments: PATIENT WAS FASTINGPERFORMED BY: [employer] Sykaxh4075 [facility] [id number] Bacteria None seen (Normal) Mucus Threads Present (Normal) Crystal Type Calcium Oxalate (Normal) Crystals Present (Abnormal) Epithelial Cells (non renal) 0-10 {/hpf} (Normal) Range: 0 - 10 RBC 0-2 {/hpf} (Normal) Range: 0 - 2 WBC 0-5 {/hpf} (Normal) Range: 0 - 5 :06 Rapid Strep Test, Office (96809) Rapid Strep Test, Office Negative (Normal) :03 Rapid Flu (54941 x 2) Influenza A Ag neg (Normal) :35 URINALYSIS, W/ MICRO (81731) Comments: 09-14; PATIENT WAS FASTINGPERFORMED BY: Chalkable [facility] HospitalAlgebraix DataNov[facility] [id number] Microscopic Examination See below: (Normal) Comments: Microscopic was indicated and was performed. Nitrite, Urine Negative (Normal) Urobilinogen,Semi-Qn 1.0 mg/dL (Normal) Range: 0.0-1.9 Bilirubin Negative (Normal) Occult Blood Negative (Normal) Ketones Trace (Abnormal) Glucose Negative (Normal) Protein 1+ (Abnormal) WBC Esterase Trace (Abnormal) Appearance Clear (Normal) Urine-Color Yellow (Normal) pH 6.5 (Normal) Range: 5.0-7.5 Specific [place] 1.029 (Normal) Range: 1.005-1.030 :35 CBC, Platelets & Auto Diff Comments: 09-14; PATIENT WAS FASTINGPERFORMED BY: [employer] Mkhsef0814 [facility] [id number] Information: [id number] (01240) Immature Grans (Abs) 0.2 {x10E3/uL} Range: 0.0-0.1 [...] 3.77-5.28 WBC 14.3 {x10E3/uL} Range: 3.4-10.8 (Abnormal) 08-Sep-20149:35 Metabolic Panel, Comprehensive Comments: 09-14; PATIENT WAS FASTINGPERFORMED BY: LabCoAncora Psychiatric HospitalZhmnxk7736 [facility] [id number] (78098) ALT (SGPT) 16 [iU]/L (Normal) Range: 0-32 [...] mg/dL (Normal) Range: 65-99 08-Sep-20149:35 Lipid Panel (74899) Comments: 12-14; PATIENT WAS FASTINGPERFORMED BY: LabCoAncora Psychiatric HospitalIwumnz6559 [facility] [id number] LDL/HDL Ratio 1.7 {ratio_units} (Normal) Range: 0.0-3.2 [...] Cholesterol, Total 215 mg/dL (Abnormal) Range: 100-199 73-Bkq-661503:12 Metabolic Panel, Basic Comments: today; PATIENT NOT FASTINGPERFORMED BY: [facility] Vwkhiw3019 [facility] [id number] Information: [id number],NURSE DRAW (35342) Calcium, Serum 10.6 mg/dL (Abnormal) Range: 8.6-10.2 [...] Comments: 4 months; PATIENT WAS FASTINGPERFORMED BY: [facility] Omevvh4133 [facility] [id number] Information: [id number] COMPREHENSIVE (02188) ALT (SGPT) 24 [iU]/L (Normal) Range: 0-32 [...] mg/dL (Normal) Range: 65-99 06-Jan-20148:06 LIPID PANEL (29888) Comments: 4 months; PATIENT WAS FASTINGPERFORMED BY: REBIScanNov[facility] [id number] LDL/HDL Ratio 2.0 {ratio_units} (Normal) Range: 0.0-3.2 LDL Cholesterol Calc 145 mg/dL (Abnormal) Range: 0-99 VLDL Cholesterol Thanh 22 mg/dL (Normal) Range: 5-40 HDL Cholesterol 71 mg/dL (Normal) Comments: According to ATP-III Guidelines, HDL-C >59 mg/dL is considered anegative risk factor for CHD. Triglycerides 111 mg/dL (Normal) Range: 0-149 Cholesterol, Total 238 mg/dL (Abnormal) Range: 100-199 1-Tcz-222300:03 Potassium Serum (04704) Comments: today; PATIENT NOT FASTINGPERFORMED BY: Mobio [facility] [id number] Information: [id number] Potassium, Serum 3.7 mmol/L (Normal) Range: 3.5-5.2 05-Erb-372039:41 MICROALBUMIN: CREATININE Comments: PATIENT NOT FASTINGPERFORMED BY: [employer] Compare Atrenta [facility] [id number] Information: [id number] RATIO (98034) AND (89180) Microalb/Creat Ratio 6.9 {mg/g_creat} (Normal) Range: 0.0-30.0 Microalbumin, Urine 19.6 ug/mL (Abnormal) Range: 0.0-17.0 Creatinine, Urine 282.6 mg/dL (Abnormal) Range: 15.0-278.0 :57 METABOLIC PANEL, COMPREHENSIVE Comments: PATIENT WAS FASTINGPERFORMED BY: LATA Olapic [facility] [id number] (04947) ALT (SGPT) 26 [iU]/L (Normal) Range: 0-32 [...] mg/dL (Normal) Range: 65-99 :57 LIPID PANEL (10216) Comments: PATIENT WAS FASTINGPERFORMED BY: SIM Digitalblin [place] [id number] LDL/HDL Ratio 1.7 {ratio_units} (Normal) Range: 0.0-3.2 LDL Cholesterol Calc 137 mg/dL (Abnormal) Range: 0-99 VLDL Cholesterol Thanh 12 mg/dL (Normal) Range: 5-40 HDL Cholesterol 81 mg/dL (Normal) Comments: According to ATP-III Guidelines, HDL-C >59 mg/dL is considered anegative risk factor for CHD. Triglycerides 60 mg/dL (Normal) Range: 0-149 Cholesterol, Total 230 mg/dL (Abnormal) Range: 100-199 20-Jxy-71713:57 CBC WITH MANUAL DIFF Comments: PATIENT WAS FASTINGPERFORMED BY: LATA LabCoAncora Psychiatric HospitalWslkhc9534 [facility] [id number] Information: [id number] (53748) Immature Grans (Abs) 0.0 {x10E3/uL} (Normal) Range: [...] CREATININE RATIO Comments: PATIENT WAS FASTINGPERFORMED BY: PayMinsAncora Psychiatric HospitalTkyzzn2108 [facility] [id number] (58342) AND (10960) Microalb/Creat Ratio 4.0 {mg/g_creat} (Normal) Range: 0.0-30.0 Microalbumin, Urine 8.3 ug/mL (Normal) Range: 0.0-17.0 Creatinine, Urine 206.4 mg/dL (Normal) Range: 15.0-278.0 :29 METABOLIC PANEL, COMPREHENSIVE Comments: PATIENT WAS FASTINGPERFORMED BY: [employer] Mbxqgg3796 [facility] [id number] (60756) ALT (SGPT) 22 [iU]/L (Normal) Range: 0-32 [...] mg/dL (Normal) Range: 65-99 :29 LIPID PANEL (47090) Comments: PATIENT WAS FASTINGPERFORMED BY: Yippy70 [facility] [id number] LDL/HDL Ratio 1.9 {ratio_units} (Normal) Range: 0.0-3.2 [...] MANUAL DIFF Comments: PATIENT WAS FASTINGPERFORMED BY: [employer]6370 [facility] [id number] Information: [id number] (96556) Immature Grans (Abs) 0.0 {x10E3/uL} (Normal) Range: [...] Ambiguous Default Comments: PATIENT WAS FASTINGPERFORMED BY: [facility] Awvubx0868 [facility] [id number] Immature Grans (Abs) 0.0 {x10E3/uL} (Normal) Range: [...] PANEL, COMPREHENSIVE Comments: PATIENT WAS FASTINGPERFORMED BY: LabCoAncora Psychiatric HospitalFdncul7614 [facility] [id number] (11101) ALT (SGPT) 22 [iU]/L (Normal) Range: 0-32 [...] mg/dL (Normal) Range: 65-99 :06 LIPID PANEL (74300) Comments: PATIENT WAS FASTINGPERFORMED BY: LabBeaumont Hospital6370 [facility] [id number] LDL/HDL Ratio 1.2 {ratio_units} (Normal) Range: 0.0-3.2 LDL Cholesterol Calc 95 mg/dL (Normal) Range: 0-99 VLDL Cholesterol Thanh 13 mg/dL (Normal) Range: 5-40 HDL Cholesterol 80 mg/dL (Normal) Comments: According to ATP-III Guidelines, HDL-C >59 mg/dL is considered anegative risk factor for CHD. Triglycerides 64 mg/dL (Normal) Range: 0-149 Cholesterol, Total 188 mg/dL (Normal) Range: 100-199 :59 Urinalysis, Office (99843) UA - BILIRUBIN Negative (Normal) UA - [...] Kumar M.D.March 29, 2012 at 8:59:04 AM [phone] Signed GP/GP If you are the referring physician and would like to consult with theradiologist who provided this interpretation, please contact Miracle Dale at . If this radiologist is unavailable,youwill be directed to another radiologist to assist. If you are a patient with a question r egarding this report, pleasecontactyour referring physician directly. Professional Interpretation Provided By: tritrue, Phone , Dictated on 03/28/12 0813 by Taty masters MD,Tarascribed on 03/29/12 0904 by ITS IMPORTSign by Rogelio Kumar MD on 03/29/12 0905 Sign by: Rogelio Kumar MD 03-Yhf-79555:00 BILAT SCRN DIGITAL & CAD Radiology Report [...] Kumar M.D.March 28, 2012 at 9:07:04 AM [phone] Signed GP/GP If you are the referring physician and would like to consult with theradiologist who provided this interpretation, please contact Miracle Dale at . If this radiologist is unavailable,youwill be directed to another radiologist to assist. If you are a patient with a question regarding this report, pleasecontactyour referring physician directly. Professional Interpretation Provided By: tritrue, Phone , Dictated on 03/28/12 084 7 by Preet Kumar MDribed on 03/28/12 1125 by ITS IMPORTSign by Rogelio Kumar MD on 03/28/12 1126 Sign by: Rogelio Kumar MD :17 LIPID PANEL (40900) Comments: PATIENT NOT FASTINGPERFORMED BY: [facility] Yudhnv9206 [facility] [id number] LDL Cholesterol Calc 93 mg/dL (Normal) Range: 0-99 LDL/HDL Ratio 1.3 {ratio_units} (Normal) Range: 0.0-3.2 VLDL Cholesterol Thanh 22 mg/dL (Normal) Range: 5-40 HDL Cholesterol 73 mg/dL (Normal) Comments: According to ATP-III Guidelines, HDL-C >59 mg/dL is considered anegative risk factor for CHD. Triglycerides 112 mg/dL (Normal) Range: 0-149 Cholesterol, Total 188 mg/dL (Normal) Range: 100-199 :17 HEPATIC FUNCTION PANEL Comments: PATIENT NOT FASTINGPERFORMED BY: [employer] Kliatd3985 [facility] [id number] Information: ADD DRAW FEE 750954 ADD J0 [id number] (86010) ALT (SGPT) 28 [iU]/L (Normal) Range: 0-40 AST (SGOT) 29 [iU]/L (Normal) Range: 0-40 Alkaline Phosphatase, S 54 [iU]/L (Normal) Range: 25-165 Bilirubin, Direct 0.20 mg/dL (Normal) Range: 0.00-0.40 Bilirubin, Total 0.7 mg/dL (Normal) Range: 0.0-1.2 Albumin, Serum 4.6 g/dL (Normal) Range: 3.5-4.8 Protein, Total, Serum 6.5 g/dL (Normal) Range: 6.0-8.5 :30 CBC WITH MANUAL DIFF Comments: PATIENT WAS FASTINGPERFORMED BY: [employer] Wqteel7398 [facility] [id number] Information: [id number] (12637) Immature Grans (Abs) 0.0 {x10E3/uL} (Normal) Range: [...] 3.80-5.10 WBC 4.8 {x10E3/uL} (Normal) Range: 4.0-10.5 31-Vlr-24219:30 LIPID PANEL (76659) Comments: PATIENT WAS FASTINGPERFORMED BY: LabCoAncora Psychiatric HospitalAtymlm9691 [facility] [id number]; OV 02/28/12 LDL/HDL Ratio 2.1 {ratio_units} (Normal) [...] PANEL, COMPREHENSIVE Comments: PATIENT WAS FASTINGPERFORMED BY: [employer] Yuogvi7851 [facility] [id number] (22782) ALT (SGPT) 19 [iU]/L (Normal) Range: 0-40 [...] CREATININE RATIO Comments: PATIENT WAS FASTINGPERFORMED BY: PayMinsAncora Psychiatric HospitalRtouso1403 [facility] [id number] (36212) AND (91174) Microalb/Creat Ratio 5.5 {mg/g_creat} (Normal) Range: 0.0-30.0 [...] regarding this repo rt, please call our 28Z8hcbzovm line @ Dictated on 01/24/12 0917 by [...] regarding this report, ple ase call our 35M2bwgwtto line @ Dictated on 01/03/12 1257 by Rakesh Benavidez MDTranscribed on 01/04/12 1540 by ITS IMPORTSign by Rakesh Benavidez MD on 01/04/12 1540 Sign by: Rakesh Benavidez MD 46-Dhi-34223:30 MYOCARD PERF STRESS/REST MULT Radiology Report See Note (Normal) Comments: EXERCISE STRESS TEST HISTORYA 75-year-old lady with history of abnormal EKG. EVPKRLNZV50.0 mCi of Sestamibi was injected at rest. [...] fraction. Dic tated on 06/30/11 0134 by Raul Allen MDrilTranscribed on 07/01/11 0530 by Esmer CEDILLO by Jose Allen MD on 07/10/11 1645 Sign by: ___ Jose Allen MD 44-Txs-866186:03 Creatinine Clearance Comments: PERFORMED BY: [facility]6370 [facility] [id number] Information: 06/26/11@7AM 06/27/11@7AM Creatinine Clearance 68 mL/min [...] Creatinine, Serum 0.94 mg/dL (Normal) Range: 0.57-1.00 28-Fko-588287:03 Protein Total, Qn, 24-Hr Comments: PERFORMED BY: Yippy70 [facility] [id number] Urine Prot,24hr calculated <31.5 {mg/24_hr} (Normal) Range: 30.0-150.0 Protein,Total,Urine <1.5 mg/dL (Normal) Range: 0.0-15.0 Comments: Verified by repeat analysis :21 LIPID PANEL (03519) Comments: in three months (approximately); PATIENT WAS FASTINGPERFORMED BY: [employer]6370 [facility] [id number] Information: [id number] LDL/HDL Ratio 2.1 {ratio_units} (Normal) Range: 0.0-3.2 [...] Microscopic Examination Comments: PATIENT WAS FASTINGPERFORMED BY: Lab42lin6370 [facility] [id number] Bacteria Few (Normal) Mucus Threads Present (Normal) Crystal Type Amorphous Sediment (Normal) Crystals Present (Abnormal) Cast Type Hyaline casts (Normal) Casts Present {/lpf} (Abnormal) Epithelial Cells (non renal) 0-10 {/hpf} (Normal) Range: 0 - 10 RBC 4-10 {/hpf} (Abnormal) Range: 0 - 3 WBC 0-5 {/hpf} (Normal) Range: 0 - 5 67-Wcu-43384:23 CBC WITH MANUAL DIFF (07916) Comments: PATIENT WAS FASTINGPERFORMED BY: [facility] Iyxtcr3444 [facility] [id number] Immature Grans (Abs) 0.0 {x10E3/uL} (Normal) Range: [...] {x10E3/uL} (Normal) Range: 4.0-10.5 :23 LIPID PANEL (76790) Comments: PATIENT WAS FASTINGPERFORMED BY: Yippy70 [facility] [id number] LDL/HDL Ratio 2.0 {ratio_units} (Normal) Range: 0.0-3.2 [...] PANEL, COMPREHENSIVE Comments: PATIENT WAS FASTINGPERFORMED BY: [employer]6370 [facility] [id number] (52011) ALT (SGPT) 32 [iU]/L (Normal) Range: 0-40 [...] Glucose, Serum 93 mg/dL (Normal) Range: 65-99 10-Ljl-69679:23 URINALYSIS, W/ MICRO (65885) Comments: PATIENT WAS FASTINGPERFORMED BY: [facility]6370 [facility] [id number]; appt 06/23/11 Microscopic Examination See below: (Normal) Nitrite, Urine Negative (Normal) Urobilinogen,Semi-Qn 0.2 mg/dL (Normal) Range: 0.0-1.9 Bilirubin Negative (Normal) Occult Blood Negative (Normal) Ketones Negative (Normal) Glucose Negative (Normal) Protein 1+ (Abnormal) WBC Esterase Negative (Normal) Appearance Cloudy (Abnormal) Urine-Color Yellow (Normal) pH 6.5 (Normal) Range: 5.0-7.5 Specific [place] 1.028 (Normal) Range: 1.005-1.030 57-Pcw-340768:23 BILAT SCRN DIGITAL & CAD Radiology Report [...] biopsy of a clinically suspiciousabnormality. Dictated on 01/25/11930 by ELVIS CALVIN MDTranscribed on 01/25/112349 by ITS IMPORTSign by ELVIS SMITH MD on 01/25/112350 Sign by: ELVIS SMITH MD 29-Oyx-199164:01 Urinalysis, Office (80498) UA - BILIRUBIN Negative (Normal) UA - [...] Microscopic Examination Comments: PATIENT WAS FASTINGPERFORMED BY: Yippy70 [facility] [id number] Bacteria Few (Normal) Mucus Threads Present (Normal) Epithelial Cells (non renal) 0-10 {/hpf} (Normal) Range: 0 - 10 RBC 0-3 {/hpf} (Normal) Range: 0 - 3 WBC 0-5 {/hpf} (Normal) Range: 0 - 5 :28 LIPID PANEL (29314) Comments: PATIENT WAS FASTINGPERFORMED BY: Yippy70 [facility] [id number] LDL/HDL Ratio 1.4 {ratio_units} (Normal) Range: 0.0-3.2 HDL Cholesterol 76 mg/dL (Normal) Comments: According to ATP-III Guidelines, HDL-C >59 mg/dL is considered anegative risk factor for CHD. LDL Cholesterol Calc 110 mg/dL (Abnormal) Range: 0-99 VLDL Cholesterol Thanh 23 mg/dL (Normal) Range: 5-40 Cholesterol, Total 209 mg/dL (Abnormal) Range: 100-199 Triglycerides 117 mg/dL (Normal) Range: 0-149 :28 URINALYSIS, W/ MICRO (17892) Comments: PATIENT WAS FASTINGPERFORMED BY: [facility] CompareAncora Psychiatric HospitalHzwiwb6650 [facility] [id number] Microscopic Examination See below: (Normal) Bilirubin Negative (Normal) Nitrite, Urine Negative (Normal) Occult Blood Negative (Normal) Urobilinogen,Semi-Qn 0.2 mg/dL (Normal) Range: 0.0-1.9 Appearance Clear (Normal) Glucose Negative (Normal) Ketones Negative (Normal) Protein 1+ (Abnormal) WBC Esterase Negative (Normal) pH 6.0 (Normal) Range: 5.0-7.5 Specific [place] 1.031 (Abnormal) Range: 1.005-1.030 Urine-Color Yellow (Normal) :28 METABOLIC PANEL, COMPREHENSIVE Comments: PATIENT WAS FASTINGPERFORMED BY: [facility] CompareAncora Psychiatric HospitalYqimwz6255 [facility] [id number] (29361) Alkaline Phosphatase, S 47 [iU]/L (Normal) Range: [...] Glucose, Serum 98 mg/dL (Normal) Range: 65-99 05-Lef-18510:28 CBC WITH MANUAL DIFF Comments: PATIENT WAS FASTINGPERFORMED BY: [facility] Uojsfu1747 [facility] [id number] Information: [id number] (16060) Immature Grans (Abs) 0.0 {x10E3/uL} (Normal) Range: [...] of the chest. Dictated on 09/02/10852 by Kirit Smithranscribed on 09/02/10852 by ABDIRASHID RENDON ACESONSign by Pao Cristobal on 09/06/10 0749 Sign by: Pao Cristobal 98-Ovv-676674:35 N-Telopeptide, Urine Comments: PERFORMED BY: [facility] Ogeanontby4104 [facility] [id number] BY: [facility] Oxvisd3953 [facility] [id number] Information: 06/23@7AM 06/24@7AM Interpretive Guide: SPRCS (Normal) [...] 1.4 p=0.2838- 51 2.5 p=0.0351- 67 3.8 p=0.516851-649 17.3 p=0.58172. Menopausal Women Receiving Antiresorptive Therapy: Theprobability that treatment is effective after threemonths is increased when the measured NTx va lue is<or=38 nM BCE/mM PONY EDGER, or NTx has decreased >or=30% frombaseline (1)..3. [...] N-telopeptide 34 {nmol_BCE} (Normal) :11 Urinalysis, Office (10648) UA - LEUKOCYTE ESTERASE Negative (Normal) UA [...] Report See Note (Normal) Comments: Exam Number: [id number] MYOCARDIAL PERFUSION SCAN TECHNIQUEThe patient was injected [...] of 62%. Reported By: ROMEL SILVERIO M.D. 04-Zne-787660:11 BRAIN W/WO CONTRAST Radiology Report See Note (Normal) Comments: Exam Number: [id number] CLINICAL:73-year-old female with tremors for over one [...] ischemic changes. Reported By: ELVIS BEARD M.D. 40-Lpn-095527:39 Basic Metabolic Panel (8) Comments: A courtesy copy of this report has been sent [phone].PERFORMED BY: [facility]6370 [facility] [id number] Information: [id number] Calcium, Serum 9.7 mg/dL (Normal) Range: 8.6-10.2 [...] CREATININE RATIO Comments: PATIENT WAS FASTINGPERFORMED BY: [facility]6370 [facility] HospitalAl[facility] DataNov[facility] [id number] (73496) AND (23134) Microalb/Creat Ratio 4.3 {mg/g_creat} (Normal) Range: 0.0-30.0 Microalbumin, Urine 6.1 ug/mL (Normal) Range: 0.0-17.0 Creatinine, Urine 140.7 mg/dL (Normal) Range: 15.0-278.0 :15 METABOLIC PANEL, COMPREHENSIVE Comments: PATIENT WAS FASTINGPERFORMED BY: Yippy70 [facility] [id number] (28434) ALT (SGPT) 30 [iU]/L (Normal) Range: 0-40 [...] mg/dL (Normal) Range: 65-99 :15 LIPID PANEL (78481) Comments: PATIENT WAS FASTINGPERFORMED BY: Yippy70 [facility] [id number] LDL Cholesterol Calc 150 mg/dL (Abnormal) Range: [...] MANUAL DIFF Comments: PATIENT WAS FASTINGPERFORMED BY: Yippy70 [facility] [id number] Information: ADD [id number] AND DRAW FEE 99 9030 (82966) Immature Grans (Abs) 0.0 {x10E3/uL} (Normal) Range: [...] 3.80-5.10 WBC 6.0 {x10E3/uL} (Normal) Range: 4.0-10.5 63-Rbq-029723:33 CELINE CULTURE-OTHER (19481) Comments: PATIENT NOT FASTINGPERFORMED BY: LabCoAncora Psychiatric HospitalYgvmmy7495 [facility] [id number] Information: SRC:THRT [id number] Result 1 RRF (Normal) Comments: Routine respiratory graeme Upper Respiratory Culture Final report (Normal) 58-Bta-701740:14 Rapid Strep Test, Office (43536) Rapid Strep Test, Office Negative (Normal) 27-Tkl-288718:38 BRAIN/HEAD W/WO CONTRAST Radiology Report See Note (Normal) Comments: Exam Number: [id number] CT SCAN OF THE HEAD Multiple axial [...] without intravenous contrast. Reported By: ROGELIO KUMAR 17-Zuu-643710:47 BILAT SCRN DIGITAL & CAD Radiology Report See Note (Normal) Comments: Exam Number: [id number] MAMMOGRAM, BILATERAL SCREENING DIGITAL AND CAD HISTORYRoutine screening. Full field digital images were obtained in mediolateral oblique andcraniocaudal projections. CAD images w ere reviewed. The current study is compared to the examinations of June and September 08, 2008 from the [facility]. There is moderately dense fibroglandular [...] mammograms werealso examined with computer-aided detection software (Aspyra.). Reported By: ELVIS SMITH M.D. 31-Fuw-053401:46 DEXA BONE DENSITY STUDY (HP) Radiology Report See Note (Normal) Comments: Exam Number: [id number] DEXA AXIAL SKELETON A DEXA scan was obtained. HISTORYThis is a 74-year-old female patient with [...] IMPRESSIONOsteopenia. Reported By: ROGELIO KUMAR 08-Jan-20109:14 TSH (23124) Comments: PATIENT WAS FASTINGPERFORMED BY: LabCoAncora Psychiatric HospitalDgjmew8122 [facility] [id number] TSH 1.980 {uIU/mL} (Normal) Range: 0.450-4.500 :14 METABOLIC PANEL, COMPREHENSIVE Comments: PATIENT WAS FASTINGPERFORMED BY: LabCoAncora Psychiatric HospitalDbpgkk5667 [facility] [id number] (65659) ALT (SGPT) 17 [iU]/L (Normal) Range: 0-40 [...] mg/dL (Normal) Range: 65-99 :14 LIPID PANEL (94571) Comments: PATIENT WAS FASTINGPERFORMED BY: PayMinsAncora Psychiatric HospitalBzheff8109 [facility] [id number] HDL Cholesterol 84 mg/dL (Normal) Comments: According [...] MANUAL DIFF Comments: PATIENT WAS FASTINGPERFORMED BY: LabM[facility] LocksmithAncora Psychiatric HospitalXbistn4342 [facility] [id number] Information: [id number] (70448) Baso (Absolute) 0.1 {x10E3/uL} (Normal) Range: 0.0-0.2 [...] 3.80-5.10 WBC 6.3 {x10E3/uL} (Normal) Range: 4.0-10.5 65-Ufx-924579:23 Urinalysis, Office (18406) UA - BILIRUBIN Negative (Normal) UA - BLOOD Negative (Normal) UA - GLUCOSE Negative (Normal) UA - KETONES Negative mg/dL (Normal) UA - LEUKOCYTE ESTERASE Negative (Normal) UA - NITRITE Negative (Normal) UA - PH 7.0 (Normal) UA - PROTEIN Negative mg/dL (Normal) UA - SPECIFIC GRAVITY 1.010 (Normal) URINE UROBILINGN JOSÉ MIGUEL TIMED Normal mg/dL (Normal) 54-Iom-661012:48 Hepatic Function Panel (7) Comments: PERFORMED BY: [facility]6370 [facility] [id number] Albumin, Serum 4.4 g/dL (Normal) Range: 3.5-4.8 Alkaline Phosphatase, S 57 [iU]/L (Normal) Range: 25-165 ALT (SGPT) 25 [iU]/L (Normal) Range: 0-40 AST (SGOT) 27 [iU]/L (Normal) Range: 0-40 Bilirubin, Direct 0.14 mg/dL (Normal) Range: 0.00-0.40 Bilirubin, Total 0.4 mg/dL (Normal) Range: 0.1-1.2 Protein, Total, Serum 6.4 g/dL (Normal) Range: 6.0-8.5 :29 Urinalysis, Office (73471) UA - BILIRUBIN Negative (Normal) UA - [...] Comments: PATIENT NOT FASTINGClinical Information: SRC:UR ADD [id number] PERFORMED BY: [employer] [facility] Ibxvti4511 [facility] [id number] COUNT (07193) Result 1 NG36 (Normal) Comments: No growth in 36 - 48 hours. Urine Culture,Comprehensive Final report (Normal) :50 Metabolic Panel, Basic (01800) Comments: PATIENT NOT FASTINGClinical Information: ADD DRAW FEE 143391 ADD J 28146 PERFORMED BY: [employer] LabCoNeedcheck [facility] [id number] BUN 16 mg/dL (Normal) Range: 5-26 BUN/Creatinine [...] mmol/L (Normal) Range: 135-145 :58 Urinalysis, Office (38695) UA - BILIRUBIN Negative (Normal) UA - BLOOD Hemolyzed Trace (Normal) UA - GLUCOSE Negative (Normal) UA - KETONES Negative mg/dL (Normal) UA - LEUKOCYTE ESTERASE Negative (Normal) UA - NITRITE Negative (Normal) UA - PH 7.0 (Normal) UA - PROTEIN Negative mg/dL (Normal) UA - SPECIFIC GRAVITY 1.010 (Normal) URINE UROBILINGN JOSÉ MIGUEL TIMED 2 mg/dL (Normal) 1-Ucm-954935:23 SHOULDER,MIN 2 VIEWS Radiology Report See Note (Normal) Comments: Exam Number: [id number] SHOULDER SERIES. HISTORYA 73-year-old woman with right shoulder pain. FINDINGSRight shoulder series. Cortical outlines are intact. Bones arenormally aligned, and joint spaces ar e well maintained. Soft tissuesare unremarkable. IMPRESSIONUnremarkable right shoulder series. Reported By: DAYNA RECINOS M.D. :07 Hepatic Function Panel (7) Comments: PATIENT WAS FASTINGPERFORMED BY: [employer] [facility] [id number] Albumin, Serum 4.3 g/dL (Normal) Range: 3.5-4.8 Alkaline Phosphatase, S 63 [iU]/L (Normal) Range: 25-165 ALT (SGPT) 27 [iU]/L (Normal) Range: 0-40 AST (SGOT) 29 [iU]/L (Normal) Range: 0-40 Bilirubin, Direct 0.10 mg/dL (Normal) Range: 0.00-0.40 Bilirubin, Total 0.3 mg/dL (Normal) Range: 0.1-1.2 Protein, Total, Serum 7.0 g/dL (Normal) Range: 6.0-8.5 :38 TSH (84898) Comments: PATIENT NOT FASTINGClinical Information: ADD DRAW FEE 765608 ADD J 93752 PERFORMED BY: [employer] [facility] [id number] TSH 1.604 {uIU/mL} (Normal) Range: 0.450-4.500 :25 Metabolic Panel, Comprehensive Comments: PATIENT WAS FASTINGClinical Information: ADD 096947, [id number] PERFORMED BY: [employer] [facility] [id number] (50253) A/G Ratio 2.4 (Normal) Range: 1.1-2.5 Albumin, [...] Sodium, Serum 141 mmol/L (Normal) Range: 135-145 05-Jun-20097:25 Lipid Panel (79626) Comments: in six months (approximately); PATIENT WAS FASTINGPERFORMED BY: LabCoAncora Psychiatric HospitalJatwet0413 [facility] [id number] Cholesterol, Total 256 mg/dL (Abnormal) Range: 100-199 HDL Cholesterol 73 mg/dL (Normal) Comments: According to ATP-III Guidelines, HDL-C >59 mg/dL is considered anegative risk factor for CHD. LDL Cholesterol Calc 156 mg/dL (Abnormal) Range: 0-99 LDL/HDL Ratio 2.1 {ratio_units} (Normal) Range: 0.0-3.2 Triglycerides 133 mg/dL (Normal) Range: 0-149 VLDL Cholesterol Thanh 27 mg/dL (Normal) Range: 5-40 :20 Urinalysis, Office (31739) UA - BILIRUBIN Negative (Normal) UA - [...] Report See Note (Normal) Comments: Exam Number: [id number] MYOCARDIAL PERFUSION SCAN 11.7 millicuries of Tc99m [...] By: JOSE ALLEN M.D. :55 Urinalysis, Office (04182) UA - BILIRUBIN Negative (Normal) UA - [...] 0.2 EU/dl (Normal) Range: 0.2 - 1.0 80-Cuv-794937:20 EB ANTIBODY EARLY ANTIGN Comments: PATIENT NOT FASTINGPERFORMED BY: [facility] Iocjsg6468 [facility] [id number] (74992) EBV Ab VCA, IgG 1276 AU/mL (Abnormal) [...] Clinical Information: SRC:TH PERFORMED BY: L[facility] Kwurxx7645 [facility] [id number] Result 1 RRF (Normal) Comments: Routine respiratory graeme Upper Respiratory Culture Final report (Normal) :48 Rapid Strep Test, Office (07431) Comments: neg Rapid Strep Test, Office Negative [...] T PROT 7.0 g/dL (Normal) Range: 6.4-8.2 50-Cyc-02486:20 LIPID CHOL 238 mg/dL (Abnormal) Comments: <200 [...] mg/dL VLDL 13 mg/dL (Normal) Range: 5-40 23-Lxw-247544:41 URINE CELINE CULTURE-JOSÉ MIGUEL COL Comments: PATIENT NOT FASTINGClinical Information: SRC:UR PERFORMED BY: [facility] [id number] COUNT (97078) Result 1 NG36 (Normal) Comments: No growth in 36 - 48 hours. Urine Culture,Comprehensive Final report (Normal) 74-Cpp-000634:30 Urinalysis, Office (07625) UA - LEUKOCYTE ESTERASE Trace (Normal) UA - NITRITE Negative (Normal) UA - PH 7.5 (Normal) UA - PROTEIN Negative mg/dL (Normal) URINE UROBILINGN JOSÉ MIGUEL TIMED 2 mg/dL (Normal) UA - BILIRUBIN Negative (Normal) UA - BLOOD Negative (Normal) UA - GLUCOSE Negative (Normal) UA - KETONES Negative mg/dL (Normal) UA - SPECIFIC GRAVITY 1.010 (Normal) 35-Bel-522047:09 URINE CELINE CULTURE (JOSÉ MIGUEL COL Comments: PATIENT NOT FASTINGClinical Information: SRC:UR ADD [id number] PERFORMED BY: [facility]Nov[facility] [id number] COUNT) (82224) Antimicrobial MIHEAD (Normal) Comments: S = Susceptible; [...] mL (Normal) Urine Final report Culture,Comprehensive (Normal) 13-Hqq-319287:56 Urinalysis, Office (02967) UA - BILIRUBIN Negative (Normal) UA - BLOOD Non Hemolyzed Trace (Normal) UA - GLUCOSE Small (Normal) UA - KETONES Small mg/dL (Normal) UA - LEUKOCYTE ESTERASE Small (Normal) UA - NITRITE Positive (Normal) UA - PH 6.0 (Normal) UA - PROTEIN 300 mg/dL (Normal) UA - SPECIFIC GRAVITY 1.020 (Normal) URINE UROBILINGN JOSÉ MIGUEL TIMED 2 mg/dL (Normal) 84-Sfn-03766:12 L/S SPINE,MIN 4 VIEWS Radiology Report See Note (Normal) Comments: Exam Number: [id number] LUMBAR SPINE, FIVE VIEWS. INDICATIONLow back pain. [...] Plan of Care Name Dates Details Instructions Need for zoster vaccination : Follow up [...] pain, right Knee pain, right : Reviewed Die Cleaner Letter Indication: Knee pain, right Knee pain, [...] : Follow up in 4 months with [facility] for Gen Med Indication: Osteoporosis Osteoporosis : [...] back pain Planned Observations URINE CELINE CULTURE-IDENTIFICATN (13064)Indication: Right flank pain On: 5-Nrd-355182:15 Request CALCIFIDIOL (40303) VIT D 25Indication: Osteoporosis On: 68-Jqj-950996:51 Request MICROALBUMIN: CREATININE RATIO (12893) AND (88402)Indication: Hypertension On: 30-Bxz-688381:51 Request METABOLIC PANEL, COMPREHENSIVE (15259)Indication: Hypertension On: 39-Rzj-779510:51 Request LIPID PANEL (28580)Indication: Hypertension On: 01-Csq-109715:51 Request CBC W/AUTO DIFF WBC (71275)Indication: Hypertension On: 49-Xmv-647820:51 Request URINALYSIS, W/ MICRO (02459)Indication: Hypertension On: 05-Dhx-360088:10 Request METABOLIC PANEL, COMPREHENSIVE (31001)Indication: Hypertension On: 01-Xnw-215269:10 Request LIPID PANEL (00981)Indication: Hypertension On: 48-Akh-443091:10 Request CBC WITH MANUAL DIFF (44533)Indication: Hypertension On: 91-Kdy-977782:10 Request CBC, PLATELETS & MANUAL DIFF (54443)Indication: Hypertension On: 4-Bcq-138063:12 Request MICROALBUMIN: CREATININE RATIO (93350) AND (42471)Indication: Hypertension On: 96-Eac-495850:43 Request METABOLIC PANEL, COMPREHENSIVE (37331)Indication: Hypertension On: 92-Cqn-355690:43 Request LIPID PANEL (83771)Indication: Hypertension On: 00-Vpy-426676:43 Request CBC WITH MANUAL DIFF (60910)Indication: Hypertension On: 77-Pqc-846880:43 Request CREATININE CLEARANCE (07762)Indication: Proteinuria On: 93-Bdq-212947:12 Request Comments: now 24 hour urine for Protein (74216)Indication: Proteinuria On: 39-Ulg-464066:12 Request Collagen Crosslinked N-Telopeptide (82309)Indication: Osteoporosis On: :59 Request Comments: 24 hour urine check now and in six months (approximately) HEPATIC FUNCTION PANEL (22750)Indication: oncomycosis On: :03 Request Comments: monthly x 3 EB ANTIBODY VIRAL CAPSID (70403) R1Pyucdizfba: Pharyngitis, acute On: 20-Rxa-859796:13 Request EB ANTIBODY NUCLR ANTIGN (07875)Indication: Pharyngitis, acute On: 82-Vgl-496152:13 Request CELINE CULTURE-OTHER (19222)Indication: Pharyngitis, acute On: :48 Request URINALYSIS W/O MICRO (32096)Indication: Hypertension On: :16 Request METABOLIC PANEL, COMPREHENSIVE (06811)Indication: Hypertension On: :16 Request CBC WITH MANUAL DIFF (54669)Indication: Hypertension On: :16 Request Comments: in six months (approximately) LIPID PANEL (30150)Indication: Hypertension On: :16 Request CBC (Auto) (26106)Indication: Hypercholesterolemia On: :24 Request Metabolic Panel, Comprehensive (64768)Indication: Hypercholesterolemia On: :24 Request Lipid Panel (93055)Indication: Hypercholesterolemia On: :24 Request Comments: in six months (approximately) Metabolic Panel, Comprehensive (47987)Indication: Hypercholesterolemia On: 68-Axf-719546:09 Request Lipid Panel (60895)Indication: Hypercholesterolemia On: 85-Ojf-681330:09 Request Comments: 4m Planned Encounters Medical; 3 Month FU - On: 08-Oct-2018 13:45 Comprehensive Internal Medicine Nguyen Santana CNP, CNP, Mary E Planned Procedures SCREENING DIGITAL TOMOSYNTHESIS OF On: 11-Jun-2018 Intent BREAST ([id number])By: Nguyen Santana CNP, CNP, Mary E DEXA SCAN AXIAL SKELETON ([id number])By: On: 11-Jun-2018 Intent CiesNguyen maki CNP, CNP, Mary E Flu Vaccine (Quadrivalent) [id number]: On: 11-Jun-2018 Intent Nguyen Santana CNP, CNP, Mary E Aerosol Treatment ([id number])By: On: 09-Nov-2017 Intent Zoraida Stewart Comments: Better air exchange after aerosol treatment. Holter Monitor 24 hrsBy: Max GIVENS, On: 15-Sep-2017 Intent Nguyen Skinner CNP Spirometry ([id number])By: Max GIVENS, On: 15-Sep-2017 Intent Nguyen Skinner CNP Comments: mod severe restriction ELECTROCARDIOGRAM, COMPLETE (ECG) On: 15-Sep-2017 Intent ([id number])By: Nguyen Santana CNP Comments: sinus bradycardia Nguyen GIVENS MAGNETIC RESONANCE IMAGING OF RIGHT On: 05-Jul-2017 Intent KNEE WITHOUT CONTRAST ([id number])By: Nguyen Santana CNP, CNP, Mary E Flu Vaccine (Quadrivalent) 91137Gn: On: 14-Jun-2017 Intent Nguyen Santana CNP, CNP, Mary E Comments: Lot:[id number]:03/19/18Dose:0.5mLRoute:IMSite:L DltdGiven By:asVIS signed Ultrasound - LiverBy: Max GIVENS, On: 08-Mar-2017 Intent Nguyen Skinner CNP Comments: REpeat in Jun 2017 CT - Abdomen & Pelvis Stone On: 30-Nov-2016 Intent ProtocolBy: Nguyen Santana CNP, CNP, Mary E Flu Vaccine (Quadrivalent) [id number]: On: 23-Aug-2016 Intent Jo Gaitan LPN Flu Vaccine (Quadrivalent) 65355Bf: On: 15-Sep-2015 Intent Miranda Bueno MD Comments: lot [id number]: 03/31/2016site/route L jean, IMamt 0.5mlVIS and ABN signed when applicableChelsea, DEVELOPMENT CHEMIST Kenalog Injection, 10 mgm On: 20-Mar-2015 Intent ([id number])By: Miranda Buneo MD Comments: x4 TDAP VACCINE >7 IM ([id number])By: On: 17-Mar-2015 Intent Miranda Bueno MD MRI - Shoulder(s) - RightBy: Ximena On: 17-Mar-2015 Intent Miranda ALEXANDRE ADMINISTRATION OF INFLUENZA VIRUS On: 16-Sep-2014 Intent VACCINE ([id number])By: Miranda Bueno MD Flu Vaccine (Quadrivalent) 47189Hn: On: 16-Sep-2014 Intent Miranda Bueno MD ELECTROCARDIOGRAM, COMPLETE (ECG) On: 16-Sep-2014 Intent ([id number])By: Miranda Bueno MD Comments: routine for baseline see scanned document of test done to see results reviewed today with patient Aerosol Treatment ([id number])By: Max On: 01-Sep-2014 Intent SENIOR HR BUSINESS PARTNER, Mary Max SENIOR HR BUSINESS PARTNER, Nguyen Briones Eprescribed prescriptions ([id number])By: On: 25-Feb-2014 Intent Miranda Bueno MD Kenalog Injection, 10 mgm On: 14-Jan-2014 Intent ([id number])By: Miranda Bueno MD Kenalog Injection, 10 mgm On: 14-Jan-2014 Intent ([id number])By: Miranda Bueno MD Kenalog Injection, 10 mgm On: 14-Jan-2014 Intent ([id number])By: Miranda Bueno MD Kenalog Injection, 10 mgm On: 14-Jan-2014 Intent ([id number])By: Miranda Bueno MD DXA, BONE DENSITY, AXIAL SKELETON On: 14-Jan-2014 Intent ([id number])By: Miranda Bueno MD MAMMOGRAM, SCREENING, BOTH BREASTS On: 14-Jan-2014 Intent ([id number])By: Miranda Bueno MD Eprescribed prescriptions ([id number])By: On: 14-Jan-2014 Intent Miranda Bueno MD FLU VAC, SPLIT, >3 YEARS, INTRAMUSC On: 06-Sep-2013 Intent ([id number])By: PAM Sanz Comments: Lot #:[id number] date:03.15Amount given:0.5mlRoute: IMSite given:L DltdGiven by: VIS and ABN signed ADMINISTRATION OF INFLUENZA VIRUS On: 06-Sep-2013 Intent VACCINE (G0008)By: PAM Sanz Breast Screening - BilateralBy: On: 05-Jul-2013 Intent Miranda Bueno MD Eprescribed prescriptions ([id number])By: On: 07-Mar-2013 Intent Shelby Padilla ELECTROCARDIOGRAM, COMPLETE (ECG) On: 14-Dec-2012 Intent ([id number])By: Nguyen Santana CNP, CNP, Mary E ADMINISTRATION OF INFLUENZA VIRUS On: 11-Sep-2012 Intent VACCINE (G0008)By: Miranda Bueno MD FLU VAC, SPLIT, >3 YEARS, INTRAMUSC On: 11-Sep-2012 Intent ([id number])By: Miranda Bueno MD Eprescribed prescriptions ([id number])By: On: 29-May-2012 Intent Miranda Bueno MD EKG ([id number])By: Miranda Bueno MD On: 28-Feb-2012 Intent Comments: see scanned document of test done to see results reviewed today with patient Holter Monitor 24 hrsBy: Ximena ALEXANDRE, On: 28-Feb-2012 Intent Miranda Moncada DXA, BONE DENSITY, AXIAL SKELETON On: 28-Feb-2012 Intent ([id number])By: Miranda Bueno MD MAMMOGRAM, SCREENING, BOTH BREASTS On: 28-Feb-2012 Intent ([id number])By: Miranda Bueno MD Pulse Oximetry ([id number])By: Yvon On: 28-Feb-2012 Intent PAM Ultrasound - AortaBy: Ximena ALEXANDRE, On: 17-Jan-2012 Intent Miranda Moncada Carotid DopplerBy: Miranda Bueno MD On: 17-Jan-2012 Intent M Pulse Oximetry ([id number])By: Yvon On: 17-Jan-2012 Intent PAM Spirometry ([id number])By: Max GIVENS, On: 10-Jan-2012 Intent Nguyen Skinner CNP Comments: Servere airway obstruction with low vital capacity Aerosol Treatment ([id number])By: Max On: 10-Jan-2012 Intent Nguyen GIVENS CNP, Mary E Solu -Medrol Injection, 125 mg On: 03-Jan-2012 Intent ([id number])By: Nguyen Santana CNP Comments: Lot # [id number]-R hip. IMDose 125nggiven by:Nguyen Lane CNP Radiology - ChestBy: Max Nguyen GIVENS On: 03-Jan-2012 Intent E BrittanyNguyen jurado CNP Aerosol Treatment ([id number])By: Max On: 03-Jan-2012 Intent Nguyen GIVENS CNP, Mary E Pulse Oximetry ([id number])By: Gab BETHEA, On: 03-Jan-2012 Intent Taryn Solu -Medrol Injection, 125 mg On: 30-Dec-2011 Intent ([id number])By: Max GIVENSNguyen Brittanyadrien Comments: Lot #[id number]-left hipDose-125mggiven by: Marie Alvarado LPN CNP Nguyen Briones Aerosol Treatment ([id number])By: Max On: 30-Dec-2011 Intent Nguyen GIVENS BrittanyNguyen jurado CNP Solu -Medrol Injection, 125 mg On: 28-Dec-2011 Intent ([id number])By: Max GIVENS Nguyen Briones Brittanyadrien Comments: Lot #[id number]-right hipDose-125 mggiven by: Marie Alvarado LPN CNPNguyen Aerosol Treatment ([id number])By: Max On: 28-Dec-2011 Intent Nguyen GIVENS CNP, Mary E Pulse Oximetry ([id number])By: Max GIVENS, On: 26-Dec-2011 Intent Nguyen Skinner CNP Aerosol Treatment ([id number])By: Max On: 26-Dec-2011 Intent Nguyen GIVENS CNP, Mary E FLU VAC, SPLIT, >3 YEARS, INTRAMUSC On: 19-Aug-2011 Intent ([id number])By: Miranda Bueno MD Comments: refuse Echo CompleteBy: Miranda Bueno MD On: 23-Jun-2011 Intent Nuclear Stress Test/Stress On: 23-Jun-2011 Intent SPECT/TreadmillBy: Miranda Bueno MD EKG ([id number])By: Miranda Bueno MD On: 23-Jun-2011 Intent ADMINISTRATION OF PNEUMOCOCCAL On: 15-Dec-2010 Intent VACCINE (G0009)By: Miranda Bueno MD PNEUM VAC ADLT/IMUMNOSPR, SBC/INTRM On: 15-Dec-2010 Intent ([id number])By: Miranda Bueno MD MAMMOGRAM, SCREENING, BOTH BREASTS On: 15-Dec-2010 Intent ([id number])By: Miranda Bueno MD Eprescribed prescriptions ([id number])By: On: 15-Dec-2010 Intent Miranda Bueno MD Aerosol Treatment ([id number])By: Ximena On: 06-Dec-2010 Intent Miranda ALEXANDRE Pulse Oximetry (22493)By: Yvon, On: 06-Dec-2010 Intent PAM Spirometry ([id number])By: Ximena ALEXANDRE, On: 31-Aug-2010 Intent Miranda Moncada Radiology - ChestBy: Ximena ALEXANDRE, On: 31-Aug-2010 Intent Miranda Moncada Nuclear Stress Test/Stress On: 27-May-2010 Intent SPECT/TreadmillBy: Mirnada Bueno MD ELECTROCARDIOGRAM, COMPLETE (ECG) On: 27-May-2010 Intent (03297)By: Miranda Bueno MD Spirometry (24595)By: Ximena ALEXANDRE, On: 27-May-2010 Intent Miranda Moncada Pulse Oximetry (09753)By: Ximena On: 27-May-2010 Intent Miranda ALEXANDRE MRI - BrainBy: Miranda Bueno MD On: 27-May-2010 Intent Aerosol Treatment ([id number])By: Feliciano On: 22-Mar-2010 Intent DO, Holly A Pulse Oximetry (62093)By: Ashlee On: 22-Mar-2010 Intent Stephanie Comments: 95%- spirometry with mod airway obsst CT - Brain/Head (IV Contrast On: 04-Feb-2010 Intent Needed)By: Miranda Bueno MD Comments: attention posterior fossa EKG ([id number])By: Miranad Bueno MD On: 01-Jan-2010 Intent DXA, BONE DENSITY, AXIAL SKELETON On: 01-Jan-2010 Intent ([id number])By: Miranda Bueno MD MAMMOGRAM, SCREENING, BOTH BREASTS On: 01-Jan-2010 Intent ([id number])By: Miranda Bueno MD MRI - Shoulder(s) - RightBy: Ximena On: 01-Jan-2010 Intent Miranda ALEXANDRE Radiology - Shoulder - RightBy: On: 07-Jan-2009 Intent Miranda Bueno MD Holter Monitor 24 hrsBy: Ximena ALEXANDRE, On: 09-Dec-2008 Intent Miranda Moncada ELECTROCARDIOGRAM, COMPLETE (ECG) On: 09-Dec-2008 Intent ([id number])By: Miranda Bueno MD Spirometry (47048)By: Ximena ALEXANDRE, On: 09-Dec-2008 Intent Miranda Moncada Pulse Oximetry (06014)By: Ximena On: 09-Dec-2008 Intent Miranda ALEXANDRE EKG (27566)By: Miranda Bueno MD On: 29-May-2008 Intent Nuclear Stress Test/Stress On: 29-May-2008 Intent SPECT/TreadmillBy: Miranda Bueno MD Pulse Oximetry (23934)By: Daniel ALBA, On: 13-Mar-2008 Intent Gin SPECIMEN HNDLNG/TRNSPRT, OFFC > LAB On: 13-Mar-2008 Intent ([id number])By: Gin Sanchez LPN Echo CompleteBy: Miranda Bueno MD On: 29-Nov-2007 Intent Radiology - Lumbar SpineBy: Ximena On: 29-May-2007 Intent Miranda ALEXANDRE Radiology - Ankle - LeftBy: Ximena On: 28-Jun-2006 Intent Miranda ALEXANDRE Planned Medications INJECTION, METHYLPREDNISOLONE SODIUM SUCCINATE, UP TO 125 MG Ordered: 28-Dec-2011 Pending Ciesa SENIOR HR BUSINESS PARTNER, Mary Ciesa SENIOR HR BUSINESS PARTNER, Mary INJECTION, METHYLPREDNISOLONE SODIUM SUCCINATE, UP TO 125 MG Ordered: 30-Dec-2011 Pending Ciesa SENIOR HR BUSINESS PARTNER, Mary Ciesa SENIOR HR BUSINESS PARTNER, Mary INJECTION, METHYLPREDNISOLONE SODIUM SUCCINATE, UP TO 125 MG Ordered: 03-Jan-2012 Pending Ciesa SENIOR HR BUSINESS PARTNER, Mary Ciesa SENIOR HR BUSINESS PARTNER, Mary INJECTION, TRIAMCINOLONE ACETONIDE, NOT OTHERWISE SPECIFIED, [...] Indication: Hypertension Hypertension : DISCONTINUED - URINALYSIS (97137) Indication: Hypertension Hypertension : DISCONTINUED - MICROALBUMIN: CREATININE RATIO (36767) AND (13829) Indication: Hypertension Screening for breast cancer : DISCONTINUED - BILATERAL MAMMOGRAMS (34969) Indication: Screening for breast cancer Osteoporosis : [...] Instructions Indication: Hypertension Encounters Office Visit On: 02-Jul-2018 14:05 Encounter Reason: [...] using antibiotics. Note for Infection: went to [facility] urgent care last was put [...] Need for immunization against influenza), Mitral Valve Wliifmvuyypth941.6), Osteoporosis (733.00), Irritable bowel syndrome (564.1), ATHEROSCLEROSIS, AORTIC (440.0), Anxiety (300.00), History of colon polyps, Asthma, intrinsic, mild intermittent, with status asthmaticus, Osteoarthritis, Shoulder pain (719.41), Allergic rhinitis [facility] Office Visit On: 19-Mar-2015 10:42 Encounter Reason: Injections - The medication the patient is here to receive is other (2 cc marcaine lot# [id number] exp: 01-31-2016 1cc kenalog lot# [id number] exp right shoulder ).Encounter Diagnosis: Shoulder pain (719.41) End: 20-Mar-2015 15:53 [facility] Office Visit On: 17-Mar-2015 11:04 Encounter Reason: Follow up tests - Date: (03.09.15)., [ADDITIONAL REASON] Annual Medicare Exam - The patient had reviewed and updated the family history, End: 17-Mar-2015 11:52 medication/s, past medical history and social history. Yes the patient did have (30) a mini mental status exam done today. [...] The patient does have durable power of ic designer standard cells and living will. The patient has noticed nothing from the geriatic depression scale. Other providers contributing to the patient's care are bus person (Dr Silverio) and other: (Dr ridley [...] dosing regimen and considered effective by pat ieyadira. Patient sleeps 7 hours per night. Impact [...] (733.00), Hypercholesterolemia (272.0), Osteoarthritis (715.96), Mitral Valve Jyjpjfvnwrmge703.6), Colon Polyps, History of (V12.72), Asthma,Intrinsic (493.11), [...] incontinence, female, Fever and chills, Mitral Valve Bsqofbpnlwrar787.6), Colon Polyps, History of (V12.72), Irritable bowel [...] (493.11), Irritable bowel syndrome (564.1), Mitral Valve Zzrfmwuzufize103.6), Colon Polyps, History of (V12.72), Osteoporosis (733.00), [...] The patient does have durable power of ic designer standard cells and living will. The patient has noticed having problems with memory than others. Other providers contributing to the patient's c are are bus person (Dr Silverio) and other: (Dr Rodrigues [...] (401.0)), Osteoarthritis (715.96), Anxiety (300.00), Mitral Valve Kmfnileyqtesn497.6), Osteoporosis (733.00), Allergic Rhinitis(477.9), Tremors (781.0), ATHEROSCLEROSIS, [...] from Hypertension (401.0)), Anxiety (300.00), Mitral Valve Hsgyioyckjjfs454.6), Hypercholesterolemia (272.0), Asthma,Intrinsic (493.11), Colon Polyps, History [...] from Hypertension (401.0)), Anxiety (300.00), Mitral Valve Thzhdjlbbevqk063.6), Osteoarthritis (715.96), Osteoporosis (733.00), Allergic Rhinitis(477.9), ATHEROSCLEROSIS, [...] (733.00), Hypercholesterolemia (272.0), Asthma,Intrinsic (493.11), Mitral Valve Hggswcxnchsre275.6), Sleep disorder (780.50), ATHEROSCLEROSIS, AORTIC (440.0), Anxiety [...] ATHEROSCLEROSIS, AORTIC (440.0), Bradycardia (427.89), Mitral Valve Ulhgetphekxpg865.6), Hip bursitis 726.5, Hypercholesterolemia (272.0), Anxiety (300.00), [...] Hypercholesterolemia (272.0), ATHEROSCLEROSIS, AORTIC (440.0), Mitral Valve Jzpjhobygiwpw283.6), Hip bursitis 726.5 [facility] [...] Anxiety (300.00), Chronic cough (786.2), Mitral Valve Qjlsvkdfcwrqi720.6), Irritable bowel syndrome (564.1), Asthma,Intrinsic (493.11), Colon [...] Cough: not have yellow or green.alot of [facility] Diagnosis: SOB (786.05), BRONCHITIS, NOT SPECIFIED ACUTE [...] Nutrition: balanced diet and supplemental vitamins. The al dical issues the patient is following up for include asthma, cardiac issues, depression, high blood pressure, high cholesterol, osteoarthritis, osteoporosis/osteopenia and other (IBS ).Encounter Diagnosis: Diarrhea (787.91), Osteopenia (733.90), Colon Polyps, History of (V12.72), Osteoarthritis (715.96), Hypertension 401.1 (Renamed from Hypertension (401.0)), Hypercholesterolemia (272.0), Allergic Rhinitis(477.9), Asthma,Intrinsic (493.11), Sleep disorder (780.50), Tremors (781.0), Mitral Valve Peezqblnmltgm459.6), Anxiety (300.00), Osteoporosis (733.00), Irritable bowel syndrome [...] from Hypertension (401.0)), Tremors (781.0), Mitral Valve Guvpeufqnhovo370.6), WWV-Bare, Shoulder pain (719.41), Headache (784.0), Irritable [...] (427.89), Irritable bowel syndrome (564.1), Mitral Valve Ewxaqntqztkpa514.6), Headache (784.0), WWV-Bare [facility] [...] (427.89), Irritable bowel syndrome (564.1), Mitral Valve Bzfmndbpwwevb469.6), Other specified pruritic conditions (698.8), Headache (784.0) [...] (788.1), Low back pain (724.2), Mitral Valve Rvegweocrldau505.6), Osteopenia (733.90), Diarrhea (787.91), Sleep disorder (780.50), [...] (733.90), Acute sinusitis, unspecified (461.9), Mitral Valve Xzknudkdsnnrr009.6), WWV-Bare, Low back pain (724.2), Sciatica (724.3), [...] were reported. none reported. Note for Sinusitis/: [place] heat over bodyEncounter Diagnosis: ACUTE PHARYNGITIS (462.), [...] (272.0), Osteoarthritis (715.96), Allergic Rhinitis(477.9), Mitral Valve Hykfgzwscxxmy760.6), Low back pain (724.2), Sciatica (724.3), Wang [facility] Office Visit On: 12-Oct-2007 [...] (845.09), Hypertension (401.0), Hypercholesterolemia (272.0), Mitral Valve Rvqlqzwqfwcks313.6), Sciatica (724.3), Allergic Rhinitis(477.9), WWV-Bare, Low back [...] (715.96), Hypercholesterolemia (272.0), Osteopenia (733.90), Mitral Valve Hmuaiwxbqkesb685.6), WWV-Bare, Sciatica (724.3) [facility] Refill [...] Medicine End: 27-Jun-2006 14:56 Payers Fabián/Jovana Naqvi; jered guarantor
--- OUTSIDE RECORDS SUMMARY | 2018-10-28 14:20 | XMS RPT_ITS ---
:1935 Author Organization OHIP Support Name Relationship Address Phone KEYUR MAYUR NaturalDaughter [address] + [place] [address] R Unknown Unavailable Unavailable DRISS, ERIC NaturalDaughter Unavailable + KEYUR, MAYUR NaturalDaughter [address] + [place] [address] R Unknown Unavailable Unavailable DRISS, ERIC NaturalDaughter Unavailable + KEYUR, MAYUR NaturalDaughter [address] + [place] [address] R Unknown Unavailable Unavailable DRISS, ERIC NaturalDaughter Unavailable + KEYUR, MAYUR NaturalDaughter [address] + [place] [address] R Unknown Unavailable Unavailable DRISS, ERIC NaturalDaughter Unavailable + KEYUR, MAYUR NaturalDaughter [address] + [place] [address] R Unknown Unavailable Unavailable DRISS, ERIC NaturalD[address] + [place] [address] KEYUR, MAYUR NaturalDaughter [address] + [place] [address] R Unknown Unavailable Unavailable DRISS, ERIC NaturalDaughter [address] + [place] [address] KEYUR, MAYUR NaturalDaughter [address] + [place] [address] R Unknown Unavailable Unavailable DRISS, ERIC NaturalDaughter [address] + [place] [address] KEYUR, MAYUR NaturalDaughter [address] + [place] [address] R Unknown Unavailable Unavailable DRISS, ERIC NaturalDaughter [address] + [place] [address] KEYUR, MAYUR NaturalDaughter [address] + [place] [address] R Unknown Unavailable Unavailable DRISS, ERIC NaturalDaughter [address] + [place] [address] KEYUR, MAYUR NaturalDaughter [address] + [place] [address] R Unknown Unavailable Unavailable DRISS, ERIC NaturalDaughter [address] + [place] [address] KEYUR, MAYUR NaturalDaughter [address] + [place] [address] R Unknown Unavailable Unavailable DRISS, ERIC NaturalDaughter [address] + [place] [address] KEYUR, MAYUR NaturalDaughter [address] + [place] [address] R Unknown Unavailable Unavailable DRISS, ERIC NaturalDaughter [address] + [place] [address] KEYUR, MAYUR NaturalDaughter [address] + [place] [address] R Unknown Unavailable Unavailable DRISS, ERIC NaturalDaughter [address] + [place] [address] Care Team Providers Name Role Phone MASOUD LINDSEY Attending Unavailable NGUYEN TINEO (TOLL COLLECTOR) Referring Unavailable MASOUD LINDSEY Attending Unavailable NGUYEN TINEO (TOLL COLLECTOR) Referring Unavailable MASOUD LINDSEY Admitting Unavailable MASOUD LINDSEY Attending Unavailable MASOUD LINDSEY Referring Unavailable Nguyen Tineo Attending Unavailable Nguyen Tineo Referring Unavailable BrittanyesaNguyen Consulting Unavailable BrittanyesaNguyen Attending Unavailable BrittanyesaNguyen Primary Care Unavailable BrittanyesaNguyen Attending Unavailable Brittanyesa, Nguyen Primary Care Unavailable Nguyen Tineo Referring Unavailable Brittanyesglynn, Nguyen Attending Unavailable Nguyen Tineo Referring Unavailable Brittanyesglynn, Nguyen Primary Care Unavailable Nguyen Tineo Attending Unavailable BrittanyesNguyen maki Referring Unavailable Brittanyesa, Nguyen Primary Care Unavailable Anjel Mason Attending Unavailable BrittanyesaNguyen Referring Unavailable Ciesa, Nguyen Primary Care Unavailable Marlon Anjel Attending Unavailable Anjel Mason Referring Unavailable Marlon Anjel Attending Unavailable Nguyen Tineo Referring Unavailable Max, Nguyen Primary Care Unavailable Marlon Anjel Attending Unavailable Anjel Mason Referring Unavailable Max, Nguyen Primary Care Unavailable Rubina Lang Attending Unavailable Romel Silverio Attending Unavailable Nguyen Tineo Referring Unavailable Max, Nguyen Primary Care Unavailable Melva Cisse Attending Unavailable Nguyen Tineo Referring Unavailable Nguyen Tineo Attending Unavailable Max, Nguyen Referring Unavailable Max, Nguyen Primary Care Unavailable Melva Cisse Attending Unavailable Nguyen Tineo Primary Care Unavailable Purpose Purpose PROBLEMS PROBLEMS DATE TYPE CONDITION / CODE ATTENDING STATUS SOURCE 09/18/2018 Active Diarrhea, ROSALIA, Active [place] unspecified / MASOUD [facility] R19.7(ICD-10) [place] Repository 09/11/2018 Unknown N95.9 - Unspecified Nguyen Tineo Active [facility] menopausal and [facility] perimenopausal Hospital disorder / Repository N95.9(ICD-10) 03/31/2018 Unknown N39.0 - Urinary Betito, Active [place] tract infection, [facility] site not specified / Hospital N39.0(ICD-10) Repository 03/31/2018 Unknown R35.0 - Frequency of Betito, Active [place] micturition / [facility] R35.0(ICD-10) Hospital Repository 03/31/2018 Unknown A49.9 - Bacterial Betito, Active [place] infection, [facility] unspecified / Hospital A49.9(ICD-10) Repository 02/09/2018 Unknown N30.90 - Cystitis, Anjel Mason Active [facility] unspecified without Community hematuria / Hospital N30.90(ICD-10) Repository 01/27/2018 Unknown J02.9 - Acute Anjel Mason Active [place] pharyngitis, [facility] unspecified / Hospital J02.9(ICD-10) Repository PROCEDURES PROCEDURES No Procedure Records FoundVITAL SIGNS VITAL SIGNS No Vital Signs Records FoundRESULTS RESULTS HIP, UNI W/ PELVIS Observed: 10/09/2018 Status: F Source: [place] 2-3 VIEWS 12:35 PM [facility] REPOSITORY [facility] Imaging Services [address] [place] [address] [place] [address] HIP, UNI W/ Pelvis 2-3 Views MR#: [id number] Acct: [id number] Name: MAR NAQVI Rep #: [id number] : 1935 F 82 From: Nehemiah Roberto MD PCP: Nguyen Tineo NP Status: REG CLI Study: HIP, UNI W/ Pelvis 2-3 Views Date of Exam: 10/09/18 Exam# [id number] Ordering Dr: Nguyen Tineo TOLL COLLECTOR-C HISTORY: Hip pain COMPARISON: CT abdomen and pelvis 12/12/16. FINDINGS: # of images incl. paperwork: 3 2 view right hip, one view pelvis. SOFT TISSUES: No acute findings. Incidental surgical clips just above both superior pubic rami. BONES: No acute fracture or subluxation. No sclerotic or destructive changes observed. JOINTS: Degenerative changes are noted. Left scoliosis lumbar spine partially visible. RAD/HIP, UNI W/ Pelvis 2-3 Views IMPRESSION: Degenerative changes. No acute fracture or dislocation. at 1342 Reported and signed by: Nehemiah Roberto MD Electronically Signed: Nehemiah Roberto, at 13:41 EST Tel , Service support , CC: Nguyen Tineo NP Advanced Research Programs Director: Signed PROGRESS Observed: 09/27/2018 Status: COMPLETED Source: [place] 1:21 PM [facility] REPOSITORY HNO ID: [id number] Author: Masoud Lindsey Service: (none) Author Type: Physician Type: Progress Notes Filed: 09/27/2018 1:25 PM Note Text: FOLLOW UP VISIT - ENDOSCOPY NAME: Mar Naqvi [facility] NO.: [id number] DATE OF SERVICE: 09/27/2018 : 1935 REFERRING PHYSICIAN: Nguyen Tineo CNP Mar is a patient I am following for diarrhea and abdominal cramping. The patient is a 82 year old female referred for endoscopy. Mar notes an 8-9 month history of protracted diarrhea. It is become worse for the last 6 months. The patient notes she has significant amount of flatus and occasional cramping feelings. She notes occasional incontinence of stool. She states she will have a relatively solid bowel movement in the morning. This is been followed with a few liquid bowel movements. She will then take Imodium which then seems to slow down her bowel activity for the rest of the day. She was diagnosed with irritable bowel syndrome back in the 1980s. She has been given multiple different oral medications in an attempt to improve her symptoms. None of these have really helped area She underwent upper endoscopy performed by Dr. Hernandez in 2012 which demonstrated no specific abnormalities. The diagnosis for this procedure was rectal bleeding and personal history of colon polyps. The patient notes no history of upper GI complaints. Mar has not undergone prior upper endoscopy. The patient understands she had stool cultures obtained which were unremarkable. I do not see record of stool cultures to [facility]. I performed upper and lower endoscopy on September 18, 2018. The patient was found to have mild erythema of the stomach a small hiatal hernia and mild distal esophageal inflammation. Terminal ileum and colonoscopy were unremarkable. Pathology demonstrated: FINAL DIAGNOSIS 1. Jejunum, biopsy (A) - Small bowel mucosa with no diagnostic alteration. 2. Antrum, biopsy (B) - Antral mucosa with no diagnostic alteration. 3. Esophagogastric junction, biopsy (C) - Mildly reactive squamous mucosa and mildly inflamed cardiac mucosa. - No evidence of intestinal metaplasia or dysplasia. 4. Mid esophagus, biopsy (D) - Squamous mucosa with no diagnostic alteration. 5. Terminal ileum, biopsy (E) - Ileal mucosa with no diagnostic alteration. 6. Random colon, biopsy (F) - Colonic mucosa with no diagnostic alteration. SAMMIE/cathie 09/20/2018 Emmanuel Rosa M.D. (Electronic Signature) SPECIMEN SUBMITTED A: JEJUNUM, BIOPSY B: ANTRUM, BIOPSY C: ESOPHAGOGASTRIC JUNCTION, BIOPSY D: MID ESOPHAGUS, BIOPSY E: TERMINAL ILEUM, BIOPSY F: RANDOM COLON, BIOPSY The patient notes some improvement in her loose stools since the procedure. VITALS: There were no vitals taken for this visit. On examination, the abdomen is a benign. Assessment IMPRESSION: Stools, abdominal cramping PLAN: If the patient notes any problems or changes in bowel function, the patient should contact me immediately. Otherwise I recommend follow up endoscopy as needed. Based on the patient's age, she does not necessarily require a follow-up colonoscopy. I did discuss however the fact that if someone's in good medical condition I would consider performing repeat endoscopies after age 80. General I have the patient follow up at the time of her next colonoscopy and if there are otherwise in good medical condition and expect that they will live at least another 5-7 years would consider endoscopy-evening 81 or 89-year-old. Since the biopsies were otherwise unremarkable and she is having no upper abdominal complaints I recommended a trial of nxcp-piy-vehlsdg Prilosec to see if this improved her symptoms of looser stools or if she did note improvement in reflux issues that she didn't realize prior to taking the medicine. Otherwise if she notes no improvement zlqq-vak-pcquvvt Prilosec she could discontinue that medication. Diagnoses: (R19.7) Diarrhea, unspecified type (primary encounter diagnosis) (R10.9) Abdominal cramping Return to Clinic: The patient is instructed to follow- up with me as needed. Masoud Lindsey MD CNOV Observed: 09/27/2018 Status: COMPLETED Source: [place] 1:00 PM [facility] REPOSITORY Office Visit (GENSWS) MAR NAQVI ([id number]) 1935 F Date Time Provider Department 09/27/18 1:00 PM MASOUD LINDSEY During your visit today, we recorded the following information about you: Masoud Lindsey MD 09/27/2018 1:25 PM Signed FOLLOW UP VISIT - ENDOSCOPY NAME: Mar Naqvi CLINIC NO.: [id number] DATE OF SERVICE: 09/27/2018 : 1935 REFERRING PHYSICIAN: Nguyen Tineo CNP Mar is a patient I am following for diarrhea and abdominal cramping. The patient is a 82 year old female referred for endoscopy. Mar notes an 8-9 month history of protracted diarrhea. It is become worse for the last 6 months. The patient notes she has significant amount of flatus and occasional cramping feelings. She notes occasional incontinence of stool. She states she will have a relatively solid bowel movement in the morning. This is been followed with a few liquid bowel movements. She will then take Imodium which then seems to slow down her bowel activity for the rest of the day. She was diagnosed with irritable bowel syndrome back in the 1980s. She has been given multiple different oral medications in an attempt to improve her symptoms. None of these have really helped area She underwent upper endoscopy performed by Dr. Hernandez in 2012 which demonstrated no specific abnormalities. The diagnosis for this procedure was rectal bleeding and personal history of colon polyps. The patient notes no history of upper GI complaints. Mar has not undergone prior upper endoscopy. The patient understands she had stool cultures obtained which were unremarkable. I do not see record of stool cultures to [facility]. I performed upper and lower endoscopy on September 18, 2018. The patient was found to have mild erythema of the stomach a small hiatal hernia and mild distal esophageal inflammation. Terminal ileum and colonoscopy were unremarkable. Pathology demonstrated: FINAL DIAGNOSIS 1. Jejunum, biopsy (A) - Small bowel mucosa with no diagnostic alteration. 2. Antrum, biopsy (B) - Antral mucosa with no diagnostic alteration. 3. Esophagogastric junction, biopsy (C) - Mildly reactive squamous mucosa and mildly inflamed cardiac mucosa. - No evidence of intestinal metaplasia or dysplasia. 4. Mid esophagus, biopsy (D) - Squamous mucosa with no diagnostic alteration. 5. Terminal ileum, biopsy (E) - Ileal mucosa with no diagnostic alteration. 6. Random colon, biopsy (F) - Colonic mucosa with no diagnostic alteration. SAMMIE/cathie 09/20/2018 Emmanuel Rosa M.D. (Electronic Signature) SPECIMEN SUBMITTED A: JEJUNUM, BIOPSY B: ANTRUM, BIOPSY C: ESOPHAGOGASTRIC JUNCTION, BIOPSY D: MID ESOPHAGUS, BIOPSY E: TERMINAL ILEUM, BIOPSY F: RANDOM COLON, BIOPSY The patient notes some improvement in her loose stools since the procedure. VITALS: There were no vitals taken for this visit. On examination, the abdomen is a benign. Assessment IMPRESSION: Stools, abdominal cramping PLAN: If the patient notes any problems or changes in bowel function, the patient should contact me immediately. Otherwise I recommend follow up endoscopy as needed. Based on the patient's age, she does not necessarily require a follow-up colonoscopy. I did discuss however the fact that if someone's in good medical condition I would consider performing repeat endoscopies after age 80. General I have the patient follow up at the time of her next colonoscopy and if there are otherwise in good medical condition and expect that they will live at least another 5-7 years would consider endoscopy-evening 81 or 89-year-old. Since the biopsies were otherwise unremarkable and she is having no upper abdominal complaints I recommended a trial of sxbh-sap-rnvbcff Prilosec to see if this improved her symptoms of looser stools or if she did note improvement in reflux issues that she didn't realize prior to taking the medicine. Otherwise if she notes no improvement uvns-nvl-imwrhkl Prilosec she could discontinue that medication. Diagnoses: (R19.7) Diarrhea, unspecified type (primary encounter diagnosis) (R10.9) Abdominal cramping Return to Clinic: The patient is instructed to follow- up with me as needed. Masoud Lindsey MD Referring Provider: NGUYEN TINEO [[id number]] Allergies As of Date: 09/27/2018 Noted Allergy Reaction SULFA (SULFONAMIDE ANTIBIOTICS) 10/07/2005 2 - Rash Date Reviewed: 09/27/2018 Reviewed by: Masoud Lindsey - Fully Assessed Reason for Visit: Radiology Post Procedure Follow Up [1507] Primary Visit Diagnosis:Diarrhea, unspecified type [R19.7] Other Visit Diagnosis:Abdominal cramping [R10.9] Prescriptions as of 09/27/2018 Sig: * TYLENOL ORAL Take by mouth. ADVAIR HFA 115 MCG-21 MCG/ACT* * ALBUTEROL SULFATE HFA 90 MCG/* Inhale 2 Puffs as instructed * AMLODIPINE 2.5 MG TABLET * ASPIRIN 81 MG TABLET Take 81 mg by mouth. AZELASTINE 137 MCG (0.1 %) NA* Use 1 [place] in each nostril t* * GERBER-600 WITH VITAMIN D 600 MG* Take one(1) tablet daily. * CITALOPRAM 20 MG TABLET Take 20 mg by mouth once james* * PREMARIN 0.625 MG/GRAM VAGINA* .5GM PER VAGINA AT [facility]* * DAILY MULTIVITAMIN TABLET Take one(1) tablet daily. * HYDROCHLOROTHIAZIDE 25 MG TAB* Take one(1) tablet daily. HYOSCYAMINE ER 0.375 MG TABLE* TAKE 1 TABLET BY MOUTH EVERY * * LOPERAMIDE ORAL Take by mouth. LOSARTAN 50 MG TABLET SERTRALINE 100 MG TABLET Problem List As Of Date 09/27/2018 Noted Resolved Cystocele, midline [N81.11] INVALID FOR* Postmenopausal atrophic vaginitis [N95.2] INVALID FOR* Letter Text Encounter Status:Closed by MASOUD LINDSEY MD on 09/27/18 BREAST LIMITED Observed: 09/20/2018 Status: F Source: [place] UNILATERAL 1:28 PM [facility] REPOSITORY [facility] Imaging Services [address] [place] [address] Breast Limited Unilateral MR#: [id number] Acct: [id number] Name: MAR NAQVI Rep #: [id number] : 1935 F 82 From: Rogelio Joseph MD PCP: Nguyen Tineo NP Status: REG CLI Study: Breast Limited Unilateral Date of Exam: 09/20/18 Exam# [id number] Ordering Dr: Nguyen Tineo NP-Khloe STUDY: ULTRASOUND BREAST - LEFT REASON FOR EXAM: Female, 82 years old. Abnormal screening mammogram. TECHNIQUE: Axial and longitudinal images of the LEFT breast were performed with a high resolution ultrasound transducer. COMPARISON: Comparison is made with prior mammogram dated September 14, 2018. FINDINGS: LEFT Breast: The mammographic abnormality corresponds to 2 cysts. There is an 8mm by 8mm by 8 mm cyst at the 12:00 position of the breast at 2 cm from nipple. A similar appearing cyst measuring 8 mm x 8 mm x 5 mm is seen at the 3:00 position breast at 1 cm from nipple. US/Breast Limited Unilateral IMPRESSION: The mammographic abnormality corresponds to 2 small cysts. Routine mammographic follow-up is recommended. ASSESSMENT CATEGORY: BIRADS Category 2: Benign. A letter regarding these results will be sent to the patient by the facility within 30 days. Electronically Signed: Rogelio Joseph MD at 15:46 EST Tel [phone], Service support , CC: Nguyen Tineo NP Advanced Research Programs Director: Signed NURSING PROG Observed: 09/18/2018 Status: COMPLETED Source: [place] 12:57 PM [facility] REPOSITORY HNO ID: [id number] Author: Fior Scott (Rn) NEEMA New Service: Nursing Author Type: Registered Nurse Type: Nursing Progress Note Filed: 09/18/2018 12:57 PM Note Text: Patient did not experience a fall prior to discharge. Patient did not experience a burn prior to discharge. Fior New RN PT ED Observed: 09/18/2018 Status: COMPLETED Source: [place] 12:37 PM [facility] REPOSITORY HNO ID: [id number] Author: Fior KauffmanRn) NEEMA New Service: Nursing Author Type: Registered Nurse Type: Patient Education Filed: 09/18/2018 12:38 PM Note Text: POST OP LEARNING RESPONSE INSTRUCTION PROVIDED TO: Patient and Family member METHOD OF INSTRUCTION: Written instruction - handouts Verbal instruction PATIENT / FAMILY RESPONSE: Verbalizes understanding of: INFECTION MANAGEMENT-Signs and symptoms of an infection and importance of contacting the physician PHYSICAL RESTRICTIONS-Physical restrictions and recommendations after discharge from the hospital POST-PROCEDURE INSTRUCTIONS-Correct actions to take to reduce post procedure complications PATIENT SAFETY PRINCIPLES WORSENING CONDITION-Signs and symptoms of a worsening condition that warrant a call to the physician FOLLOW-UP PLAN: Patient instructed to call with any further issues Follow up phone call. SUPPLEMENTAL MATERIAL: Procedure discharge instructions REFERRAL (RECOMMENDATION): None Electronically Signed By: Fior New RN In Department: AMBULATORY SURGERY NURSING PROG Observed: 09/18/2018 Status: COMPLETED Source: [place] 12:00 PM [facility] REPOSITORY HNO ID: [id number] Author: Fior KauffmanRn) NEEMA New Service: Nursing Author Type: Registered Nurse Type: Nursing Progress Note Filed: 09/18/2018 12:19 PM Note Text: Received patient in post op following colonoscopy and EGD. Patient positioned on left side. Abdomen soft. Vital signs stable. Warm blanket applied to patient. Patient's daughter at bedside. Fior New RN NURSING PROG Observed: 09/18/2018 Status: COMPLETED Source: [place] 11:59 AM [facility] REPOSITORY HNO ID: [id number] Author: Susana Saunders RN Service: Nursing Author Type: Registered Nurse Type: Nursing Progress Note Filed: 09/18/2018 12:00 PM Note Text: Patient did not experience a fall within the Intraoperative area. Patient did not experience a burn within the Intraoperative area. Susana Saunders RN NURSING PROG Observed: 09/18/2018 Status: COMPLETED Source: [place] 11:06 AM [facility] REPOSITORY HNO ID: [id number] Author: Fior New RN Service: Nursing Author Type: Registered Nurse Type: Nursing Progress Note Filed: 09/18/2018 11:06 AM Note Text: [facility] PRE-OP NURSING HAND OFF NOTE SBAR Hand off given to Susana Saunders RN. Hand off was communicated verbally and at the patient's bedside and all questions were answered. FALLS/FRANCIS Patient did not experience a fall within the Preoperative area. Patient did not experience a burn within the Preoperative area. Fior New RN PT ED Observed: 09/18/2018 Status: COMPLETED Source: [place] 10:24 AM [facility] REPOSITORY HNO ID: [id number] Author: Fior Scott (Rn) NEEMA New Service: Nursing Author Type: Registered Nurse Type: Patient Education Filed: 09/18/2018 10:24 AM Note Text: PRE OP LEARNING ASSESSMENT PROCEDURE/SURGERY: GI PROCEDURES: Colonoscopy and EGD READINESS TO LEARN COGNITIVE ABILITY: Alert and oriented MOTIVATION TO LEARN: Eager FAMILY SUPPORT: High - Very involved in pt care PATIENT LEARNS BEST BY: Multiple Methods FACTORS AFFECTING LEARNING: None PHYSICAL LIMITATIONS AFFECTING LEARNING: None Electronically Signed By: Fior New RN In Department: AMBULATORY SURGERY HISTORY PHYSICAL Observed: 09/18/2018 Status: COMPLETED Source: [place] 10:07 AM [facility] REPOSITORY HNO ID: [id number] Author: Masoud Lindsey Service: General Surgery Author Type: Physician Type: HANDP Filed: 09/18/2018 10:07 AM Note Text: HISTORY AND PHYSICAL ? Mar Naqvi 1935 ? REFERRING PHYSICIAN: Nguyen Tineo CNP ? CHIEF COMPLAINT: Diarrhea ? HPI: The patient is a 82 year old female referred for endoscopy. Mar notes an 8-9 month history of protracted diarrhea. It is become worse for the last 6 months. The patient notes she has significant amount of flatus and occasional cramping feelings. She notes occasional incontinence of stool. She states she will have a relatively solid bowel movement in the morning. This is been followed with a few liquid bowel movements. She will then take Imodium which then seems to slow down her bowel activity for the rest of the day. She was diagnosed with irritable bowel syndrome back in the . She has been given multiple different oral medications in an attempt to improve her symptoms. None of these have really helped area ? She underwent upper endoscopy performed by Dr. Hernandez in 2012 which demonstrated no specific abnormalities. The diagnosis for this procedure was rectal bleeding and personal history of colon polyps. ? The patient notes no history of upper GI complaints. ? Mar has not undergone prior upper endoscopy. The patient understands she had stool cultures obtained which were unremarkable. I do not see record of stool cultures to [facility]. ? The patient is being seen by me today at the request of Nguyen Tineo CNP my opinion and advice regarding unremitting diarrhea. ? ? PAST MEDICAL HISTORY PAST MEDICAL HISTORY Diagnosis Date - Asthma ? - Disorder of bone and cartilage, unspecified ? - Female stress incontinence ? - Generalized osteoarthrosis, unspecified site ? ? WITH BURSITIS - PMH - PAST MEDICAL HISTORY OF ? ? FIBROCYSTIC BREAST DISEASE - PMH - PAST MEDICAL HISTORY OF ? ? RIGHT HIP PAIN - PMH - PAST MEDICAL HISTORY OF ? ? sciatica - Postmenopausal atrophic vaginitis ? ? Atroph. vaginitis/post-men. - Unspecified essential hypertension ? ? Essential hypertension - Urge incontinence ? ? ? PAST SURGICAL HISTORY PAST SURGICAL HISTORY Procedure Laterality Date - APPENDECTOMY ? ? - BX OF BREAST; INCISIONAL ? 1980s ? Bx of breast, incisional - COLONOSCOP W/ OR W/O BRSH SPEC ? 08/26/13 - LAPAROSCOPIC CHOLEYCYSTECTOMY ? 96 ? Cholecystectomy, lap - PAST SURGICAL HISTORY OF ? 's ? ANTERIOR URETHROPEXY - PAST SURGICAL HISTORY OF ? ? ? ANTERIOR COLPORAPHY - TOTAL ABDOM HYSTERECTOMY ? 71 ? Hysterectomy, LAKEISHA,BSO (fibroids) ? ? ? CURRENT MEDICATIONS ? Current Outpatient Prescriptions: losartan (COZAAR) 50 mg tablet ? amLODIPine (NORVASC) 2.5 mg tablet ? ADVAIR HFA 115-21 mcg/actuation inhaler ? azelastine (ASTELIN) 0.1% nasal spray Use 1 [place] in each nostril twice daily. Aspirin 81 mg ORAL Tab Take 81 mg by mouth. hydrochlorothiazide 25 mg ORAL Tab Take one(1) tablet daily. DAILY MULTIVITAMIN TAB Take one(1) tablet daily. hyoscyamine SR (LEVBID) 0.375 mg 12 hr tablet TAKE 1 TABLET BY MOUTH EVERY 12 HOURS FOR IBS AND GI SPASMS sertraline (ZOLOFT) 100 mg tablet ? losartan (COZAAR) 100 mg ORAL tablet Take 100 mg by mouth once daily. citalopram 20 mg ORAL tablet Take 20 mg by mouth once daily. ACETAMINOPHEN (TYLENOL ORAL) Take by mouth. albuterol HFA 90 mcg/Actuation INHALATION inhaler Inhale 2 Puffs as instructed every 6 hours as needed. LOPERAMIDE HCL (LOPERAMIDE ORAL) Take by mouth. conjugated estrogens (PREMARIN) 0.625 mg/g VAGINAL Crea .5GM PER VAGINA AT H.S. TWICE WEEKLY GERBER-600 WITH VITAMIN D 600 MG-200 UNIT TAB Take one(1) tablet daily. ? No current facility-administered medications for this visit. ? ALLERGIES: Sulfa (Sulfonamide Antibiotics) ? PERSONAL HISTORY: SOCIAL HISTORY Social History Marital status: Spouse name: Eric Years of education: Number of children: 2 ? Occupational History Occupation Employer Comment Retired [employer] ? Social History Main Topics Smoking status: Never Smoker ? Alcohol use: Yes Comment: wine rarely Drug use: No Sexual activity: No Comment: T.A.H.BSO ? ? FAMILY HISTORY: FAMILY HISTORY FAMILY HISTORY Problem Relation Age of Onset - Hypertension Mother ? ? AND DEMENTIA - Hypertension Father ? - other (Other [Other]) Brother ? ? LEUKEMIA ? ? REVIEW OF SYMPTOMS: The review of systems data was entered by the nurse and reviewed by me ? Nursing Notes: Aster Alaniz LPN 08/10/2018 11:56 AM Signed REVIEW OF SYSTEMS: General: The patient denies fatigue, denies weight loss, denies weight gain, denies feeling hot, and denies feelings of cold. Eyes: The patient denies glaucoma, denies eye injury/surgery, does not wear glasses or contacts. Ear/Nose/Throat: The patient NOTES allergies, denies hayfever, denies ear infections, and denies bloody noses. Cardiovascular: The patient denies chest pain, denies heart disease, NOTES high blood pressure,denies cardiac stent, denies prior heart attack, denies irregular heart beat, denies high cholesterol, denies poor circulation, denies heart failure, other cardiac issues, denies claudication, denies cold feet, denies peripheral arterial stent. Respiratory: The patient denies tuberculosis, denies pneumonia, denies frequent cough, denies pulmonary embolism, NOTES shortness of breath, and denies coughing up blood. Gastrointestinal: The patient denies difficulty swallowing, denies acid reflux, denies ulcers, denies vomiting, denies jaundice/hepatitis, denies gallbladder problems, denies black or tarry stools, denies hemorrhoids, denies bleeding from rectum, denies diverticulitis, denies constipation, NOTES diarrhea, denies loss of stool control, and denies hernias. Kidney/Bladder: The patient denies kidney stones, denies urine infections, and denies bloody urine. Skin: The patient denies a history of skin cancer, denies bleeding/changing moles, and denies a history of skin rash. Neurologic: The patient denies a history of epilepsy/convulsions, denies headaches, denies head/spinal injuries, and denies stroke/TIA. Psychiatric: The patient denies psychiatric medications, NOTES depression, and denies voices, denies substance abuse. Endocrine: The patient denies thyroid disorders, denies diabetes, and denies hormonal problems. Hematologic: The patient denies a history of bruising, denies bleeding, and denies anemia, denies blood clots. Infections: The patient denies a history of measles and mumps, denies rheumatic fever, and denies sexually transmitted diseases. Musculoskeletal: The patient denies back pain/injury, denies back problems, denies sciatica, denies knee/foot trouble, NOTES arthritis, or denies gout. ? ? When was patient's last Mammogram screening? 2015 ? Last Colonoscopy: 2012 ? Aster Alaniz LPN PHYSICAL EXAMINATION: ? General: The patient is 82 year old female, well nourished, well hydrated in no acute distress. The patient is oriented to time, place, and person. ? VITALS: Blood pressure 142/60, pulse (!) 56, weight 63.5 kg (140 lb). Body mass index is 27.34 kg/m?. ? HEENT: Normal cephalic, ataumatic, pupils are equally round, sclera are anicteric, mucous membranes are moist, oropharynx is clear. Neck has no masses, asymmetry or lymphadenopathy. Thyroid is unremarkable. ? Respiratory: Clear to auscultation and percussion. Normal respiratory excursion and pattern. ? Cardiac: Examination is regular rate and rhythm. ? Abdominal exam: Soft, nontender, with no palpable masses. No hepatosplenomegaly. No palpable hernias. ? Rectal exam: exam deferred ? Extremities: no clubbing, cyanosis or edema. No adenopathy. ? Other: ? LABORATORY VALUES: As Noted ? RADIOLOGIC STUDIES: As Noted ? Assessment IMPRESSION: Unexplained diarrhea ? PLAN: I plan to perform upper and lower endoscopy. We discussed the risks and benefits of the planned endoscopy. I have informed the patient that complications can occur including failure to complete the endoscopy and perforation. The patient had the opportunity to ask questions concerning the planned endoscopy. My staff has also explained the procedure to the patient in understandable terms and has given the patient printed material concerning the procedure. The patient freely consents to surgery. ? I plan to use [employer] bowel preparation for endoscopy ? ? ? Diagnoses: (R19.7) Diarrhea, unspecified type (primary encounter diagnosis) (R10.9) Abdominal cramping ? This note will be forwarded to Nguyen Tineo CNP. Return to Clinic: The patient is instructed to follow-up with me after the testing has been completed. ? Masoud Lindsey MD SURGICAL PATHOLOGY Observed: 09/18/2018 Status: F Source: [place] 12:00 AM [facility] REPOSITORY Specimen originated from [facility] Specimen #: [id number] Submitting Physician: MASOUD LINDSEY ([id number]) FINAL DIAGNOSIS 1. Jejunum, biopsy (A) - Small bowel mucosa with no diagnostic alteration. 2. Antrum, biopsy (B) - Antral mucosa with no diagnostic alteration. 3. Esophagogastric junction, biopsy (C) - Mildly reactive squamous mucosa and mildly inflamed cardiac mucosa. - No evidence of intestinal metaplasia or dysplasia. 4. Mid esophagus, biopsy (D) - Squamous mucosa with no diagnostic alteration. 5. Terminal ileum, biopsy (E) - Ileal mucosa with no diagnostic alteration. 6. Random colon, biopsy (F) - Colonic mucosa with no diagnostic alteration. TP/plaraceli 09/20/2018 Emmanuel Rosa M.D. (Electronic Signature) SPECIMEN SUBMITTED A: JEJUNUM, BIOPSY B: ANTRUM, BIOPSY C: ESOPHAGOGASTRIC JUNCTION, BIOPSY D: MID ESOPHAGUS, BIOPSY E: TERMINAL ILEUM, BIOPSY F: RANDOM COLON, BIOPSY CLINICAL DATA R19.7 B) H/H GROSS DESCRIPTION A. Received in formalin is one piece of burgos, soft tissue measuring 0.4 x 0.2 x 0.2 cm. Totally submitted in one cassette. B. Received in formalin is one piece of burgos, soft tissue measuring 0.3 x 0 2 x 0.2 cm. Totally submitted in one cassette. C. Received in formalin is one piece of burgos, soft tissue measuring 0.3 x 0.2 x 0.2 cm. Totally submitted in one cassette. D. Received in formalin is one piece of burgos, soft tissue measuring 0.2 x 0.2 x 0 2 cm. Totally submitted in one cassette. E. Received in formalin is one piece of burgos, soft tissue measuring 0.3 x 0.2 x 0.2 cm. Totally submitted in one cassette. F. Received in formalin are two pieces of burgos, soft tissue aggregating to 0.7 x 0.4 x 0.2 cm. Totally submitted in one cassette. Gross examination performed at [facility], [address] [place] [address] 09/19/2018 10:01:56 AM Date of Report: 09/20/2018 Date of Procedure: 09/18/2018 Date of Receipt: 09/18/2018 Submitted by: MASOUD LINDSEY ([id number]) [facility] Diagnostic interpretation performed at [place] [address]. SCREENING MAMM (CAD), Observed: 09/14/2018 Status: F Source: [facility] 1:47 PM [facility] REPOSITORY [facility] Imaging Services [address] [place] [id number] SCREENING MAMM (CAD), BILAT MR#: [id number] Acct: [id number] Name: MAR NAQVI Rep #: [id number] : 1935 F 82 From: Rogelio Joseph MD PCP: Nguyen Tineo NP Status: REG CLI Study: SCREENING MAMM (CAD), BILAT Date of Exam: 09/14/18 Exam# [id number] Ordering Dr: Nguyen Tineo TOLL COLLECTOR-Khloe MAMMOGRAPHY - BILATERAL SCREENING REASON FOR EXAM: Female, 82 years old. Routine annual screening examination. PERTINENT HISTORY: Non-contributory. Remote right excisional breast biopsy. TECHNIQUE: Digital bilateral breast fara (3D mammographic acquisition) in the CC and MLO projections. 2-D mediolateral oblique (MLO) and craniocaudad (CC) views of both breasts were obtained. CAD: Full Field Digital Mammography with Computer Added Detection was performed. COMPARISON: Comparison is made with prior study dated August 13, 2014 and August 12, 2013. FINDINGS: Breast Composition: The breasts are almost entirely fatty. There now is evidence of a 1.1 cm x 1 cm well-defined nodule in the retroareolar region of the left breast. A similar appearing nodule measuring 7.3 mm x 7 mm is seen in the slightly lateral midportion of the left breast. Correlation with ultrasound is recommended. No other significant abnormalities are identified. BI/SCREENING MAMM (CAD), BILAT IMPRESSION: 2 small well-defined nodules are seen in the left breast as described. Correlation with ultrasound is recommended. ASSESSMENT CATEGORY: BIRADS Category 0: Incomplete. Need additional imaging evaluation. A letter regarding these results will be sent to the patient by the facility within 30 days. Approximately 10% of breast cancers are not detected by mammography. A normal mammogram should not delay biopsy of a clinically suspicious abnormality. [id number] Electronically Signed: Rogelio Joseph MD at 15:55 EST Tel [phone], Service support , CC: Nguyen Tineo NP [employer] Research Programs Director: Signed DEXA BONE DENSITY Observed: 09/11/2018 Status: F Source: [facility] 12:11 PM [facility] REPOSITORY [facility] Imaging Services [address] [place] [id number] Dexa Bone Density Study MR#: [id number] Acct: [id number] Name: MAR NAQVI Rep #: [id number] : 1935 F 82 From: Rogelio Joseph MD PCP: Nguyen Tineo NP Status: REG CLI Study: Dexa Bone Density Study Date of Exam: 09/11/18 Exam# [id number] Ordering Dr: Nguyen Tineo NP-Khloe STUDY: DUAL ENERGY X-RAY ABSORPTIOMETRY / DXA REASON FOR EXAM: Female, 82 years old. The patient is postmenopausal. Loss of height. TECHNIQUE: Bone Mineral Density (BMD) measurements of lumbar spine and bilateral hips were obtained. COMPARISON: Comparison is made with prior study dated September 06, 2016. FINDINGS: Lumbar Spine (L1-L4): g/cm2 (1.110) / T-score (-0.5) / Z-score (1.4) Findings are suggestive of with a low fracture risk. Left Femur Total: g/cm2 (0.948) / T-score (-0.5) / Z- score (1.7) Left Femoral Neck: g/cm2 (0.877) / T-score (-1.2) / Z- score (1.1) Right Femur Total: g/cm2 (0.915) / T-score (-0.7) / Z- score (1.4) Right Femoral Neck: g/cm2 (0.860) / T-score (-1.3) / Z-score (0.9) The T-Scores on the most recent prior examination were: Lumbar Spine (L1-L4): There has been worsening of bone density since the previous examination. Left Femur Total: which represents a worsening of 2.7%. Right Femur Total: which represents a worsening of 6.3%. BD/Dexa Bone Density Study IMPRESSION: The patient is considered osteopenic as outlined below according to World [employer]ad[employer] Organization (WHO) criteria with a moderate fracture risk. There has been worsening of [...] National Osteoporosis Foundation http://www.nof.org Electronically Signed: Rogelio Joseph MD at 15:42 EST Tel [phone], Service support , CC: Nguyen Tineo NP Advanced Research Programs Director: Signed PROGRESS Observed: 08/11/2018 Status: COMPLETED Source: [place] 9:16 AM [facility] REPOSITORY O ID: [id number] Author: Masoud Lindsey Service: (none) Author Type: Physician Type: Progress Notes Filed: 08/11/2018 9:21 AM Note Text: HISTORY AND PHYSICAL Mar Naqvi 1935 REFERRING PHYSICIAN: Nguyen Tineo CNP CHIEF COMPLAINT: Diarrhea HPI: The patient is a 82 year old female referred for endoscopy. Mar notes an 8-9 month history of protracted diarrhea. It is become worse for the last 6 months. The patient notes she has significant amount of flatus and occasional cramping feelings. She notes occasional incontinence of stool. She states she will have a relatively solid bowel movement in the morning. This is been followed with a few liquid bowel movements. She will then take Imodium which then seems to slow down her bowel activity for the rest of the day. She was diagnosed with irritable bowel syndrome back in the 1980s. She has been given multiple different oral medications in an attempt to improve her symptoms. None of these have really helped area She underwent upper endoscopy performed by Dr. Hernandez in 2012 which demonstrated no specific abnormalities. The diagnosis for this procedure was rectal bleeding and personal history of colon polyps. The patient notes no history of upper GI complaints. Mar has not undergone prior upper endoscopy. The patient understands she had stool cultures obtained which were unremarkable. I do not see record of stool cultures to [facility]. The patient is being seen by me today at the request of Nguyen Tineo CNP my opinion and advice regarding unremitting diarrhea. PAST MEDICAL HISTORY Diagnosis Date - Asthma - Disorder of bone and cartilage, unspecified - Female stress incontinence - Generalized osteoarthrosis, unspecified site WITH BURSITIS - PMH - PAST MEDICAL HISTORY OF FIBROCYSTIC BREAST DISEASE - PMH - PAST MEDICAL HISTORY OF RIGHT HIP PAIN - PMH - PAST MEDICAL HISTORY OF sciatica - Postmenopausal atrophic vaginitis Atroph. vaginitis/post-men. - Unspecified essential hypertension Essential hypertension - Urge incontinence PAST SURGICAL HISTORY Procedure Laterality Date - APPENDECTOMY - BX OF BREAST; INCISIONAL 1980s Bx of breast, incisional - COLONOSCOP W/ OR W/O [facility] SPEC 08/26/13 - LAPAROSCOPIC CHOLEYCYSTECTOMY 96 Cholecystectomy, lap - PAST SURGICAL HISTORY OF 's ANTERIOR URETHROPEXY - PAST SURGICAL HISTORY OF ANTERIOR COLPORAPHY - TOTAL ABDOM HYSTERECTOMY 71 Hysterectomy, [place],BSO (fibroids) Current Outpatient Prescriptions: losartan (COZAAR) 50 mg tablet amLODIPine (NORVASC) 2.5 mg tablet ADVAIR HFA 115-21 mcg/actuation inhaler azelastine (ASTELIN) 0.1% nasal spray Use 1 [place] in each nostril twice daily. Aspirin 81 mg ORAL Tab Take 81 mg by mouth. hydrochlorothiazide 25 mg ORAL Tab Take one(1) tablet daily. DAILY MULTIVITAMIN TAB Take one(1) tablet daily. hyoscyamine SR (LEVBID) 0.375 mg 12 hr tablet TAKE 1 TABLET BY MOUTH EVERY 12 HOURS FOR IBS AND GI SPASMS sertraline (ZOLOFT) 100 mg tablet losartan (COZAAR) 100 mg ORAL tablet Take 100 mg by mouth once daily. citalopram 20 mg ORAL tablet Take 20 mg by mouth once daily. ACETAMINOPHEN (TYLENOL ORAL) Take by mouth. albuterol HFA 90 mcg/Actuation INHALATION inhaler Inhale 2 Puffs as instructed every 6 hours as needed. LOPERAMIDE HCL (LOPERAMIDE ORAL) Take by mouth. conjugated estrogens (PREMARIN) 0.625 mg/g VAGINAL Crea .5GM PER VAGINA AT H.S. TWICE WEEKLY GERBER-600 WITH VITAMIN D 600 MG-200 UNIT TAB Take one(1) tablet daily. No current facility-administered medications for this visit. ALLERGIES: Sulfa (Sulfonamide Antibiotics) PERSONAL HISTORY: Social History Marital status: Spouse name: Eric Years of education: Number of children: 2 Occupational History Occupation Employer Comment Retired [employer] Social History Main Topics Smoking status: Never Smoker Alcohol use: Yes Comment: wine rarely Drug use: No Sexual activity: No Comment: [email or web address].A.[email or web address] FAMILY HISTORY: FAMILY HISTORY Problem Relation Age of Onset - Hypertension Mother AND DEMENTIA - Hypertension Father - other (Other [Other]) Brother LEUKEMIA REVIEW OF SYMPTOMS: The review of systems data was entered by the nurse and reviewed by ma Nursing Notes: Aster Alaniz LPN 08/10/2018 11:56 AM Signed REVIEW OF SYSTEMS: General: The patient denies fatigue, denies weight loss, denies weight gain, denies feeling hot, and denies feelings of cold. Eyes: The patient denies glaucoma, denies eye injury/surgery, does not wear glasses or contacts. Ear/Nose/Throat: The patient NOTES allergies, denies hayfever, denies ear infections, and denies bloody noses. Cardiovascular: The patient denies chest pain, denies heart disease, NOTES high blood pressure,denies cardiac stent, denies prior heart attack, denies irregular heart beat, denies high cholesterol, denies poor circulation, denies heart failure, other cardiac issues, denies claudication, denies cold feet, denies peripheral arterial stent. Respiratory: The patient denies tuberculosis, denies pneumonia, denies frequent cough, denies pulmonary embolism, NOTES shortness of breath, and denies coughing up blood. Gastrointestinal: The patient denies difficulty swallowing, denies acid reflux, denies ulcers, denies vomiting, denies jaundice/hepatitis, denies gallbladder problems, denies black or tarry stools, denies hemorrhoids, denies bleeding from rectum, denies diverticulitis, denies constipation, NOTES diarrhea, denies loss of stool control, and denies hernias. Kidney/Bladder: The patient denies kidney stones, denies urine infections, and denies bloody urine. Skin: The patient denies a history of skin cancer, denies bleeding/changing moles, and denies a history of skin rash. Neurologic: The patient denies a history of epilepsy/convulsions, denies headaches, denies head/spinal injuries, and denies stroke/TIA. Psychiatric: The patient denies psychiatric medications, NOTES depression, and denies voices, denies substance abuse. Endocrine: The patient denies thyroid disorders, denies diabetes, and denies hormonal problems. Hematologic: The patient denies a history of bruising, denies bleeding, and denies anemia, denies blood clots. Infections: The patient denies a history of measles and mumps, denies rheumatic fever, and denies sexually transmitted diseases. Musculoskeletal: The patient denies back pain/injury, denies back problems, denies sciatica, denies knee/foot trouble, NOTES arthritis, or denies gout. When was patient's last Mammogram screening? 2016 Last Colonoscopy: 2012 Aster Alaniz DIRECTOR GIFT PHYSICAL EXAMINATION: General: The patient is 82 year old female, well nourished, well hydrated in no acute distress. The patient is oriented to time, place, and person. VITALS: Blood pressure 142/60, pulse (!) 56, weight 63.5 kg (140 lb). Body mass index is 27.34 kg/m?. HEENT: Normal cephalic, ataumatic, pupils are equally round, sclera are anicteric, mucous membranes are moist, oropharynx is clear. Neck has no masses, asymmetry or lymphadenopathy. Thyroid is unremarkable. Respiratory: Clear to auscultation and percussion. Normal respiratory excursion and pattern. Cardiac: Examination is regular rate and rhythm. Abdominal exam: Soft, nontender, with no palpable masses. No hepatosplenomegaly. No palpable hernias. Rectal exam: exam deferred Extremities: no clubbing, cyanosis or edema. No adenopathy. Other: LABORATORY VALUES: As Noted RADIOLOGIC STUDIES: As Noted Assessment IMPRESSION: Unexplained diarrhea PLAN: I plan to perform upper and lower endoscopy. We discussed the risks and benefits of the planned endoscopy. I have informed the patient that complications can occur including failure to complete the endoscopy and perforation. The patient had the opportunity to ask questions concerning the planned endoscopy. My staff has also explained the procedure to the patient in understandable terms and has given the patient printed material concerning the procedure. The patient freely consents to surgery. I plan to use [employer] bowel preparation for endoscopy Diagnoses: (R19.7) Diarrhea, unspecified type (primary encounter diagnosis) (R10.9) Abdominal cramping This note will be forwarded to Nguyen Tineo CNP. Return to Clinic: The patient is instructed to follow-up with me after the testing has been completed. Masoud Lindsey MD CNOV Observed: 08/10/2018 Status: COMPLETED Source: [place] 11:30 AM [facility] REPOSITORY Office Visit (GENSWS) MAR NAQVI ([id number]) 1935 F Date Time Provider Department 08/10/18 11:30 AM MASOUD LINDSEY During your visit today, we recorded the following information about you: Pulse Blood pressure Weight 56/minute 142/60 63.5 kg Aster Corbin ALBA 08/10/2018 11:56 AM Signed REVIEW OF SYSTEMS: General: The patient denies fatigue, denies weight loss, denies weight gain, denies feeling hot, and denies feelings of cold. Eyes: The patient denies glaucoma, denies eye injury/surgery, does not wear glasses or contacts. Ear/Nose/Throat: The patient NOTES allergies, denies hayfever, denies ear infections, and denies bloody noses. Cardiovascular: The patient denies chest pain, denies heart disease, NOTES high blood pressure,denies cardiac stent, denies prior heart attack, denies irregular heart beat, denies high cholesterol, denies poor circulation, denies heart failure, other cardiac issues, denies claudication, denies cold feet, denies peripheral arterial stent. Respiratory: The patient denies tuberculosis, denies pneumonia, denies frequent cough, denies pulmonary embolism, NOTES shortness of breath, and denies coughing up blood. Gastrointestinal: The patient denies difficulty swallowing, denies acid reflux, denies ulcers, denies vomiting, denies jaundice/hepatitis, denies gallbladder problems, denies black or tarry stools, denies hemorrhoids, denies bleeding from rectum, denies diverticulitis, denies constipation, NOTES diarrhea, denies loss of stool control, and denies hernias. Kidney/Bladder: The patient denies kidney stones, denies urine infections, and denies bloody urine. Skin: The patient denies a history of skin cancer, denies bleeding/changing moles, and denies a history of skin rash. Neurologic: The patient denies a history of epilepsy/convulsions, denies headaches, denies head/spinal injuries, and denies stroke/TIA. Psychiatric: The patient denies psychiatric medications, NOTES depression, and denies voices, denies substance abuse. Endocrine: The patient denies thyroid disorders, denies diabetes, and denies hormonal problems. Hematologic: The patient denies a history of bruising, denies bleeding, and denies anemia, denies blood clots. Infections: The patient denies a history of measles and mumps, denies rheumatic fever, and denies sexually transmitted diseases. Musculoskeletal: The patient denies back pain/injury, denies back problems, denies sciatica, denies knee/foot trouble, NOTES arthritis, or denies gout. When was patient's last Mammogram screening? 2016 Last Colonoscopy: 2012 Aster Lindsey MD 08/11/2018 9:21 AM Signed HISTORY AND PHYSICAL Mar Naqvi 1935 REFERRING PHYSICIAN: Nguyen Tineo CNP CHIEF COMPLAINT: Diarrhea HPI: The patient is a 82 year old female referred for endoscopy. Mar notes an 8-9 month history of protracted diarrhea. It is become worse for the last 6 months. The patient notes she has significant amount of flatus and occasional cramping feelings. She notes occasional incontinence of stool. She states she will have a relatively solid bowel movement in the morning. This is been followed with a few liquid bowel movements. She will then take Imodium which then seems to slow down her bowel activity for the rest of the day. She was diagnosed with irritable bowel syndrome back in the 1980s. She has been given multiple different oral medications in an attempt to improve her symptoms. None of these have really helped area She underwent upper endoscopy performed by Dr. Hernandez in 2012 which demonstrated no specific abnormalities. The diagnosis for this procedure was rectal bleeding and personal history of colon polyps. The patient notes no history of upper GI complaints. Mar has not undergone prior upper endoscopy. The patient understands she had stool cultures obtained which were unremarkable. I do not see record of stool cultures to [facility]. The patient is being seen by me today at the request of Nguyen Tineo CNP my opinion and advice regarding unremitting diarrhea. PAST MEDICAL HISTORY Diagnosis Date - Asthma - Disorder of bone and cartilage, unspecified - Female stress incontinence - Generalized osteoarthrosis, unspecified site WITH BURSITIS - PMH - PAST MEDICAL HISTORY OF FIBROCYSTIC BREAST DISEASE - PMH - PAST MEDICAL HISTORY OF RIGHT HIP PAIN - PMH - PAST MEDICAL HISTORY OF sciatica - Postmenopausal atrophic vaginitis Atroph. vaginitis/post-men. - Unspecified essential hypertension Essential hypertension - Urge incontinence PAST SURGICAL HISTORY Procedure Laterality Date - APPENDECTOMY - BX OF BREAST; INCISIONAL 1980s Bx of breast, incisional - COLONOSCOP W/ OR W/O [facility] SPEC 08/26/13 - LAPAROSCOPIC CHOLEYCYSTECTOMY 96 Cholecystectomy, lap - PAST SURGICAL HISTORY OF 80's ANTERIOR URETHROPEXY - PAST SURGICAL HISTORY OF ANTERIOR COLPORAPHY - TOTAL ABDOM HYSTERECTOMY 71 Hysterectomy, [place],BSO (fibroids) Current Outpatient Prescriptions: losartan (COZAAR) 50 mg tablet amLODIPine (NORVASC) 2.5 mg tablet ADVAIR HFA 115-21 mcg/actuation inhaler azelastine (ASTELIN) 0.1% nasal spray Use 1 [place] in each nostril twice daily. Aspirin 81 mg ORAL Tab Take 81 mg by mouth. hydrochlorothiazide 25 mg ORAL Tab Take one(1) tablet daily. DAILY MULTIVITAMIN TAB Take one(1) tablet daily. hyoscyamine SR (LEVBID) 0.375 mg 12 hr tablet TAKE 1 TABLET BY MOUTH EVERY 12 HOURS FOR IBS AND GI SPASMS sertraline (ZOLOFT) 100 mg tablet losartan (COZAAR) 100 mg ORAL tablet Take 100 mg by mouth once daily. citalopram 20 mg ORAL tablet Take 20 mg by mouth once daily. ACETAMINOPHEN (TYLENOL ORAL) Take by mouth. albuterol HFA 90 mcg/Actuation INHALATION inhaler Inhale 2 Puffs as instructed every 6 hours as needed. LOPERAMIDE HCL (LOPERAMIDE ORAL) Take by mouth. conjugated estrogens (PREMARIN) 0.625 mg/g VAGINAL Crea .5GM PER VAGINA AT H.S. TWICE WEEKLY GERBER-600 WITH VITAMIN D 600 MG-200 UNIT TAB Take one(1) tablet daily. No current facility-administered medications for this visit. ALLERGIES: Sulfa (Sulfonamide Antibiotics) PERSONAL HISTORY: Social History Marital status: Spouse name: Eric Years of education: Number of children: 2 Occupational History Occupation Employer Comment Retired [employer] Social History Main Topics Smoking status: Never Smoker Alcohol use: Yes Comment: wine rarely Drug use: No Sexual activity: No Comment: T.A.HLizzyBSO FAMILY HISTORY: FAMILY HISTORY Problem Relation Age of Onset - Hypertension Mother AND DEMENTIA - Hypertension Father - other (Other [Other]) Brother LEUKEMIA REVIEW OF SYMPTOMS: The review of systems data was entered by the nurse and reviewed by ma Nursing Notes: Aster Alaniz LPN 08/10/2018 11:56 AM Signed REVIEW OF SYSTEMS: General: The patient denies fatigue, denies weight loss, denies weight gain, denies feeling hot, and denies feelings of cold. Eyes: The patient denies glaucoma, denies eye injury/surgery, does not wear glasses or contacts. Ear/Nose/Throat: The patient NOTES allergies, denies hayfever, denies ear infections, and denies bloody noses. Cardiovascular: The patient denies chest pain, denies heart disease, NOTES high blood pressure,denies cardiac stent, denies prior heart attack, denies irregular heart beat, denies high cholesterol, denies poor circulation, denies heart failure, other cardiac issues, denies claudication, denies cold feet, denies peripheral arterial stent. Respiratory: The patient denies tuberculosis, denies pneumonia, denies frequent cough, denies pulmonary embolism, NOTES shortness of breath, and denies coughing up blood. Gastrointestinal: The patient denies difficulty swallowing, denies acid reflux, denies ulcers, denies vomiting, denies jaundice/hepatitis, denies gallbladder problems, denies black or tarry stools, denies hemorrhoids, denies bleeding from rectum, denies diverticulitis, denies constipation, NOTES diarrhea, denies loss of stool control, and denies hernias. Kidney/Bladder: The patient denies kidney stones, denies urine infections, and denies bloody urine. Skin: The patient denies a history of skin cancer, denies bleeding/changing moles, and denies a history of skin rash. Neurologic: The patient denies a history of epilepsy/convulsions, denies headaches, denies head/spinal injuries, and denies stroke/TIA. Psychiatric: The patient denies psychiatric medications, NOTES depression, and denies voices, denies substance abuse. Endocrine: The patient denies thyroid disorders, denies diabetes, and denies hormonal problems. Hematologic: The patient denies a history of bruising, denies bleeding, and denies anemia, denies blood clots. Infections: The patient denies a history of measles and mumps, denies rheumatic fever, and denies sexually transmitted diseases. Musculoskeletal: The patient denies back pain/injury, denies back problems, denies sciatica, denies knee/foot trouble, NOTES arthritis, or denies gout. When was patient's last Mammogram screening? 2016 Last Colonoscopy: 2012 Aster Alaniz DIRECTOR GIFT PHYSICAL EXAMINATION: General: The patient is 82 year old female, well nourished, well hydrated in no acute distress. The patient is oriented to time, place, and person. VITALS: Blood pressure 142/60, pulse (!) 56, weight 63.5 kg (140 lb). Body mass index is 27.34 kg/m?. HEENT: Normal cephalic, ataumatic, pupils are equally round, sclera are anicteric, mucous membranes are moist, oropharynx is clear. Neck has no masses, asymmetry or lymphadenopathy. Thyroid is unremarkable. Respiratory: Clear to auscultation and percussion. Normal respiratory excursion and pattern. Cardiac: Examination is regular rate and rhythm. Abdominal exam: Soft, nontender, with no palpable masses. No hepatosplenomegaly. No palpable hernias. Rectal exam: exam deferred Extremities: no clubbing, cyanosis or edema. No adenopathy. Other: LABORATORY VALUES: As Noted RADIOLOGIC STUDIES: As Noted Assessment IMPRESSION: Unexplained diarrhea PLAN: I plan to perform upper and lower endoscopy. We discussed the risks and benefits of the planned endoscopy. I have informed the patient that complications can occur including failure to complete the endoscopy and perforation. The patient had the opportunity to ask questions concerning the planned endoscopy. My staff has also explained the procedure to the patient in understandable terms and has given the patient printed material concerning the procedure. The patient freely consents to surgery. I plan to use golytely bowel preparation for endoscopy Diagnoses: (R19.7) Diarrhea, unspecified type (primary encounter diagnosis) (R10.9) Abdominal cramping This note will be forwarded to Nguyen Tineo CNP. Return to Clinic: The patient is instructed to follow-up with me after the testing has been completed. Masoud Lindsey MD Referring Provider: NGUYEN TINEO [[id number]] Allergies As of Date: 08/10/2018 Noted Allergy Reaction SULFA (SULFONAMIDE ANTIBIOTICS) 10/07/2005 2 - Rash Date Reviewed: 08/10/2018 Reviewed by: Aster Alaniz LPN - Fully Assessed Reason for Visit: Diarrhea [35] Primary Visit Diagnosis:Diarrhea, unspecified type [R19.7] Other Visit Diagnosis:Abdominal cramping [R10.9] Order(s):MEAGAN PT ED DIGESTIVE DISEASES [] Order #: [id number]: 1 [] peg 3350-Electrolytes (GOLYTELY) 236-22.74-6.74 -5.86 gram suspensionTake 4,000 mL by mouth one time only for 1 dose. Refer to printed prep instructions from your doctor.Disp: 1 BottleRfl: 0 EGD [[id number]] Order #: [id number] FUTURE COLONOSCOPY - DIAGNOSTIC [[id number]] Order #: [id number] FUTURE MEAGAN PT ED DIGESTIVE DISEASES [] Order #: [id number]. #:[id number]: [id number] Prescriptions as of 08/10/2018 Sig: LOSARTAN 50 MG TABLET AMLODIPINE 2.5 MG TABLET ADVAIR HFA 115 MCG-21 MCG/ACT* AZELASTINE 137 MCG (0.1 %) NA* Use 1 [place] in each nostril t* * ASPIRIN 81 MG TABLET Take 81 mg by mouth. * HYDROCHLOROTHIAZIDE 25 MG TAB* Take one(1) tablet daily. * DAILY MULTIVITAMIN TABLET Take one(1) tablet daily. HYOSCYAMINE ER 0.375 MG TABLE* TAKE 1 TABLET BY MOUTH EVERY * PEG 3350-ELECTROLYTES 236 GRA* Take 4,000 mL by mouth one ti* SERTRALINE 100 MG TABLET * LOSARTAN 100 MG TABLET Take 100 mg by mouth once guille* * CITALOPRAM 20 MG TABLET Take 20 mg by mouth once james* * TYLENOL ORAL Take by mouth. * ALBUTEROL SULFATE HFA 90 MCG/* Inhale 2 Puffs as instructed * * LOPERAMIDE ORAL Take by mouth. * PREMARIN 0.625 MG/GRAM VAGINA* .5GM PER VAGINA AT H.S. TWIC* * GERBER-600 WITH VITAMIN D 600 MG* Take one(1) tablet daily. Problem List As Of Date 08/10/2018 Noted Resolved Cystocele, midline [N81.11] INVALID FOR* Postmenopausal atrophic vaginitis [N95.2] INVALID FOR* Visit Notes: >> Aster Alaniz LPN MonAug 10, 2018 11:54 AM Status: Signed REVIEW OF SYSTEMS: General: The patient denies fatigue, denies weight loss, denies weight gain, denies feeling hot, and denies feelings of cold. Eyes: The patient denies glaucoma, denies eye injury/surgery, does not wear glasses or contacts. Ear/Nose/Throat: The patient NOTES allergies, denies hayfever, denies ear infections, and denies bloody noses. Cardiovascular: The patient denies chest pain, denies heart disease, NOTES high blood pressure,denies cardiac stent, denies prior heart attack, denies irregular heart beat, denies high cholesterol, denies poor circulation, denies heart failure, other cardiac issues, denies claudication, denies cold feet, denies peripheral arterial stent. Respiratory: The patient denies tuberculosis, denies pneumonia, denies frequent cough, denies pulmonary embolism, NOTES shortness of breath, and denies coughing up blood. Gastrointestinal: The patient denies difficulty swallowing, denies acid reflux, denies ulcers, denies vomiting, denies jaundice/hepatitis, denies gallbladder problems, denies black or tarry stools, denies hemorrhoids, denies bleeding from rectum, denies diverticulitis, denies constipation, NOTES diarrhea, denies loss of stool control, and denies hernias. Kidney/Bladder: The patient denies kidney stones, denies urine infections, and denies bloody urine. Skin: The patient denies a history of skin cancer, denies bleeding/changing moles, and denies a history of skin rash. Neurologic: The patient denies a history of epilepsy/convulsions, denies headaches, denies head/spinal injuries, and denies stroke/TIA. Psychiatric: The patient denies psychiatric medications, NOTES depression, and denies voices, denies substance abuse. Endocrine: The patient denies thyroid disorders, denies diabetes, and denies hormonal problems. Hematologic: The patient denies a history of bruising, denies bleeding, and denies anemia, denies blood clots. Infections: The patient denies a history of measles and mumps, denies rheumatic fever, and denies sexually transmitted diseases. Musculoskeletal: The patient denies back pain/injury, denies back problems, denies sciatica, denies knee/foot trouble, NOTES arthritis, or denies gout. When was patient's last Mammogram screening? 2016 Last Colonoscopy: 2012 Aster Alaniz DIRECTOR GIFT Prescriptions ordered this encounter Disp Refills Start End PEG 3350-ELECTROLYTES 236 GRAM-22.74* 1 Christian* 0 08/10/2018 08/10/2018 Route: ORAL Sig: Take 4,000 mL by mouth one time only for 1 dose. Refer to printed prep instructions from your doctor. Letter Text Encounter Status:Closed by MASOUD LINDSEY MD on 08/11/18 HOSP Observed: 08/10/2018 Status: COMPLETED Source: [place] 12:00 AM [facility] [place] REPOSITORY Patient:Mra Naqvi MRN: <[id number]> Height:5' 0(1.524 m) Weight:No patient weight recorded within the last 30 days. Outpatient Medications as of 09/18/18: ACETAMINOPHEN (TYLENOL ORAL) ADVAIR HFA 115-21 mcg/actuation inhaler albuterol HFA 90 mcg/Actuation INHALATION inhaler amLODIPine (NORVASC) 2.5 mg tablet Aspirin 81 mg ORAL Tab azelastine (ASTELIN) 0.1% nasal spray GERBER-600 WITH VITAMIN D 600 MG-200 UNIT TAB citalopram 20 mg ORAL tablet conjugated estrogens (PREMARIN) 0.625 mg/g VAGINAL Crea DAILY MULTIVITAMIN TAB hydrochlorothiazide 25 mg ORAL Tab hyoscyamine SR (LEVBID) 0.375 mg 12 hr tablet LOPERAMIDE HCL (LOPERAMIDE ORAL) losartan (COZAAR) 50 mg tablet sertraline (ZOLOFT) 100 mg tablet Admission/Clinic Administered Medications as of 09/18/18: lactated ringers infusion Problem List: Cystocele, midline [N81.11] Postmenopausal atrophic vaginitis [N95.2] Allergies: Sulfa (Sulfonamide Antibiotics) Date Verified: 09/18/18 Lab Values No results within the last 30 days for the following basenames: K,HCT No progress notes entered within the past 30 days URGENT CARE VISIT Observed: 03/31/2018 Status: F Source: [facility]INC[facility] REPORT 8:57 AM [facility] REPOSITORY [facility] [address] [place] [id number] OFFICE VISIT Date of Service: 03/31/18 MR#: [id number] Acct: [id number] Name: MAR NAQVI Rep #: [id number] : 1935 Provider: RHODA Cisse Age/Sex: 82/F [place] [facility] [place]: Signed Intake Vital Signs03/31/18 Height 5 ft 03/31/18 Weight: 140 lb 03/31/18 Body Mass Index (BMI) 27.3 03/31/18 Blood Pressure 120/74 Intake Visit Reasons: Urinary tract infection Chief Complaint: burning with urination Allergies Sulfa (Sulfonamide Antibiotics) Allergy (Verified 03/31/18 08:20) Unknown pravastatin [From Pravachol] Adverse Reaction (Severe, Verified 03/31/18 08:20) myalgias morphine Adverse Reaction (Verified 03/31/18 08:20) Nausea/Vom/Diarrhea Medications Amlodipine [Norvasc] 2.5 mg PO DAILY 03/04/16 [History Confirmed 03/31/18] Aspirin [Aspirin, Baby] 81 mg PO DAILY@0800 03/04/16 [History Confirmed 03/31/18] Estrogens, Conjugated [Premarin] 0.625 mg PO PRN PRN 03/04/16 [History Confirmed 03/31/18] Fluticasone/Salmeterol [Advair Hfa 115-21 Mcg Inhaler] 2 puff INHALATION BID 03/04/16 [History Confirmed 03/31/18] Hydrochlorothiazide [Hctz] 25 mg PO DAILY 03/04/16 [History Confirmed 03/31/18] Losartan Potassium [Cozaar] 100 mg PO DAILY 03/04/16 [History Confirmed 03/31/18] Sertraline HCl [Zoloft] 100 mg PO DAILY 03/04/16 [History Confirmed 03/31/18] azelastine 137 mcg (0.1 %) nasal spray aerosol INTRANASAL 25 Days #30 01/26/18 [History Confirmed 03/31/18] albuterol sulfate HFA 90 mcg/actuation aerosol inhaler 2 puff INHALATION Q6H PRN 02/20/18 [History Confirmed 03/31/18] calcium carbonate-vitamin D3 600 mg (1,500 mg)-800 unit tablet 1 tab PO QDAY 02/20/18 [History Confirmed 03/31/18] multivit with min-folic acid-lutein 400 mcg-250 mcg chewable tablet 1 tab PO QDAY tab 02/20/18 [History Confirmed 03/31/18] colestipol 1 gram tablet 1 g PO BID tab 02/28/18 [History Confirmed 03/31/18] nitrofurantoin monohydrate/macrocrystals 100 mg capsule 100 mg PO Q12H 7 Days #14 cap 03/31/18 [Rx Confirmed 03/31/18] PFSH Medical History Sinus bradycardia (Acute) Nonrheumatic mitral valve regurgitation (Chronic) Premature atrial contractions (Acute) Cystitis (Acute) Pharyngitis, acute (Acute) Hyperlipemia (Chronic) Benign hypertension (Chronic) Anxiety (Acute) Diarrhea (Acute) Essential tremor (Acute) Fatigue (Acute) Incontinence (Acute) Knee pain (Acute) Limb weakness (Acute) SOB (shortness of breath) (Acute) Shoulder pain (Acute) Asthma (Chronic) IBS (irritable bowel syndrome) (Chronic) Osteoarthritis (Chronic) Osteoporosis (Chronic) Surgical History Hx of bladder repair surgery (Resolved) Hx of cholecystectomy (Resolved) Hx of hysterectomy (Resolved) Family History Father CAD (coronary artery disease) Hx of CABG Other Heart disease Hypertension Social History Smoking Status: Never smoker alcohol intake: current details: occasional HPI HPI Chief Complaint: burning with urination Details: MAR NAQVI, is a 82 F who presents to the office today with 3 day history of urinary burning and frequency. She has not tried any OTC medications, but has increased her fluid intake. She has had UTI's before and knows this is the start of one. She does not feel she can wait another day to see her PCP. She has had Erythromycin and Macrobid in the past for this. She denies any fever, chills, or abdominal pain other than some mild cramping with uriination. No back pain. ROS Const Constitutional: No body ache, chills, fatigue, fever(s), night sweats, change in appetite, weakness, frequent falls, headache(s) or excessive sweating Eyes Eyes: No visual disturbances, light sensitivity, eye pain or change in vision ENT ENT: No ear pain, ear discharge, hearing loss, dizziness/vertigo, nasal discharge, difficulty swallowing, sore throat, neck pain or headache(s) Resp Respiratory: No cough, chest congestion, hemoptysis, shortness of breath or wheezing Cardio Cardiology: Positive for other (H/o hypeertension in good control with 2 medications); no shortness of breath, irregular heart rhythm, lightheadedness, chest pain at rest, chest pain with exertion, generalized swelling, orthopnea, palpitations or excessive sweating Gastro GI: Positive for abdominal pain (Minimal cramping with urination); no difficulty swallowing, bloating, change in bowel habits, diarrhea, blood in stool, Black,tarry stools, nausea/dyspepsia or vomiting Genitourinary-Female: Positive for burning urination, urinary frequency, urinary urgency, difficulty urinating, suprapubic fullness and other (H/o UTI's); no blood in urine (none visible) or Vaginal Itching Musc Musculoskeletal: No joint pain, back pain, numbness, tingling or neck pain Skin Skin: No lesions, itching or rash Neuro Neurology: No visual disturbances, numbness, tingling, abnormal speech, confusion, unsteady gait/balance, dizziness, weakness, frequent falls, loss of vision or headache(s) Psych Psychiatric: No change in appetite, No confusion, No anxiety, No depression Endo Endocrine: No fatigue, cold intolerance, excessive sweating, flushing, heat intolerance or increased thirst/drinking Aller/Imm Allergy/Immunologic: No wheezing, itchy eyes, food intolerance, seasonal allergy symptoms or hives Babak/Lymp Hematologic/Lymphatic: No easy bruising Exam Const General: cooperative, no acute distress Orientation: alert, oriented x3 HENMT Head: normal to inspection, normocephalic Ears: hearing grossly normal bilaterally, external ears normal Nose: nasal mucous membranes and turbinates normal, no nasal discharge Face and sinus: normal facial exam Teeth and gingiva: dentition normal, gingiva normal Eyes General: appearance normal, both eyes and all related structures Eyelids: eyelids normal Conjunctivae: conjunctivae normal Sclera: sclerae normal EOM: EOM intact bilaterally Neck Neck: normal visual inspection, supple Carotids: bruit Chest Chest palpation AND inspection: normal inspection of the chest Resp Effort AND Inspection: normal respiratory effort, no audible wheezes, no cough, not labored, no respiratory distress Auscultation: Bilateral: Clear to Auscultation Cardio Rate: regular rate Rhythm: regular rhythm Heart Sounds: S1 normal, S2 normal GI Inspection: normal to inspection Auscultation: normal bowel sounds Palpation: soft, no hepatosplenomegaly, no pulsatile masses, tender (low mid abdomen) Skin General: no rashes or lesions noted Neuro General: alert, oriented x3, moves all extremities Speech: speech normal Extrem General: normal to inspection Psych Appearance: grossly normal, well kempt Mental Status: mental status grossly normal Affect: normal affect Speech and Movement: speech and movement normal Attitude: cooperative Thought Content: normal Judgment: judgment good Assessment AND Plan Problems 1. UTI (urinary tract infection), bacterial N39.0; A49.9 Plan Macrobid 100 mg bid X 7 days Urine sent for culture F/u with PCP after finished with antibiotics to recheck urine to verify completely cleared. F/u 3-5 days with PCP if symptoms not improving. To ER if fever, abdominal pain, or symptoms worsen. Medications New: nitrofurantoin monohyd/m-cryst 100 mg (Macrobid) [id number] mg PO Q12H 7 days UTI N39.0 ster with a meal/food; swallow whole; do not open, crush, dissolve , or chew Coding Level of Care Code Off vis,new,level 3 Diagnoses UTI (urinary tract infection), bacterial N39.0; A49.9 03/31/18 0857 <Electronically signed by Melva DUONG> Date Melva DUONG Cosigner Signature: Date (if applicable) CC: URINALYSIS, COMPLETE Collected: 03/31/2018 Status: F Source: GRAY 8:30 AM [facility] REPOSITORY Order Comment: How was Urine Obtained? CLEAN CATCH TYPE CODE TESTS RESULT OUT OF REFERENCE UNITS RANGE LAB L400.3000 Yellow COLOR Normal Yellow LAB L400.3050 Clear CLARITY Normal Clear LAB L400.3200 Normal mg/dl GLUCOSE, UR Normal Normal LAB L400.3300 Negative mg/dL BILIRUBIN Normal URINE Negative LAB L400.3400 Negative mg/dl KETONE UR Normal Negative LAB L400.3465 1.002-1.030 SP.GR. Normal DIPSTX 1.005 LAB L400.3550 5.0 - 8.0 pH UR Normal 7.0 LAB L400.3600 Negative mg/dl PROT DIPSTX Normal Negative LAB L400.3700 Normal mg/dl UROBILI Normal Normal LAB L400.3750 Negative NITRITE UR Normal Negative LAB L400.3780 Negative /ul OCCULT Normal BLOOD-UR Negative LAB L400.3800 Negative /ul LEUK High ESTERASE 25 LAB L400.4050 0-5 /hpf WBC Normal 0-5 SEEN LAB L400.4100 0-5 /hpf RBC-UA Normal 0-5 SEEN LAB L400.4150 5-10 /hpf SQUAM EPI Normal 0-5 SEEN LAB L400.4300 None Seen /hpf BACTERIA Normal 0 SEEN LAB L400.4350 <or=2+ /hpf MUCUS, Normal URINE 0 SEEN LAB L400.4200 0-5 /hpf Normal TRANSITIONAL EP 0-5 SEEN Performed By: #### L400.0001 #### [facility] [address] [place], [address] Observed: 03/31/2018 Status: F Source: GRAY CULTURE, URINE 8:30 AM [facility] REPOSITORY Urine Culture ORGANISM 1: Mixed Gram Positive Organisms [place] Count 11,000-25,000 MIX CULTURE Mixed contaminants. Submit a new specimen if indicated. Performed By: #### M100.0650 #### [facility] [address] [place], [address] CARDIOLOGY VISIT Observed: 02/28/2018 Status: F Source: GRAY REPORT 2:03 PM [facility] REPOSITORY [facility] [address] [place] [address] OFFICE VISIT Date of Service: 02/28/18 MR#: [id number] Acct: [id number] Name: MAR NAQVI Rep #: [id number] : 1935 Provider: Romel Silverio MD Age/Sex: 82/F [place] [facility] [place] Signed HPI HPI Details: MAR NAQVI, is a 82 F who presents to the office today for outpatient cardiovascular follow-up. Since her visit of approximately 1 year ago she states overall she has been doing well. She has not complained of ongoing palpitations, concerns or rapid rates, or concerns of symptomatic low rates. There has been no issues of worsening shortness of breath or dyspnea. There has been no ongoing chest discomfort. She underwent noninvasive evaluation in 2017. This included a transthoracic echocardiogram and an exercise tolerance test/imaging study. The results are as noted below. She states she may need right knee surgery in the future. She is pending future orthopedic evaluation. Intake Vital Signs02/28/18 Height 5 ft 02/28/18 Weight: 144 lb 02/28/18 Body Mass Index (BMI) 28.1 02/28/18 Blood Pressure 124/62 Intake Visit Reasons: 1 Y FU Allergies Sulfa (Sulfonamide Antibiotics) Allergy (Verified 02/28/18 13:14) Unknown pravastatin [From Pravachol] Adverse Reaction (Severe, Verified 02/28/18 13:14) myalgias morphine Adverse Reaction (Verified 02/28/18 13:14) Nausea/Vom/Diarrhea Medications Amlodipine [Norvasc] 2.5 mg PO DAILY 03/04/16 [History Confirmed 02/28/18] Aspirin [Aspirin, Baby] 81 mg PO DAILY@0800 03/04/16 [History Confirmed 02/28/18] Estrogens, Conjugated [Premarin] 0.625 mg PO PRN PRN 03/04/16 [History Confirmed 02/28/18] Fluticasone/Salmeterol [Advair Hfa 115-21 Mcg Inhaler] 2 puff INHALATION BID 03/04/16 [History Confirmed 02/28/18] Hydrochlorothiazide [Hctz] 25 mg PO DAILY 03/04/16 [History Confirmed 02/28/18] Losartan Potassium [Cozaar] 100 mg PO DAILY 03/04/16 [History Confirmed 02/28/18] Sertraline HCl [Zoloft] 100 mg PO DAILY 03/04/16 [History Confirmed 02/28/18] azelastine 137 mcg (0.1 %) nasal spray aerosol INTRANASAL 25 Days #30 01/26/18 [History Confirmed 02/28/18] albuterol sulfate HFA 90 mcg/actuation aerosol inhaler 2 puff INHALATION Q6H PRN 02/20/18 [History Confirmed 02/28/18] calcium carbonate-vitamin D3 600 mg (1,500 mg)-800 unit tablet 1 tab PO QDAY 02/20/18 [History Confirmed 02/28/18] multivit with min-folic acid-lutein 400 mcg-250 mcg chewable tablet 1 tab PO QDAY tab 02/20/18 [History Confirmed 02/28/18] PFSH Medical History Sinus bradycardia (Acute) Nonrheumatic mitral valve regurgitation (Chronic) Premature atrial contractions (Acute) Cystitis (Acute) Pharyngitis, acute (Acute) Hyperlipemia (Chronic) Benign hypertension (Chronic) Anxiety (Acute) Diarrhea (Acute) Essential tremor (Acute) Fatigue (Acute) Incontinence (Acute) Knee pain (Acute) Limb weakness (Acute) SOB (shortness of breath) (Acute) Shoulder pain (Acute) Asthma (Chronic) IBS (irritable bowel syndrome) (Chronic) Osteoarthritis (Chronic) Osteoporosis (Chronic) Surgical History Hx of bladder repair surgery (Resolved) Hx of cholecystectomy (Resolved) Hx of hysterectomy (Resolved) Family History Father CAD (coronary artery disease) Hx of CABG Other Heart disease Hypertension Social History Smoking Status: Never smoker alcohol intake: current details: occasional ROS Const Const: Negative for fatigue, weakness, weight gain, weight loss, frequent falls or excessive sweating Eyes Eyes: Negative for change in vision, blurry vision or transient loss of vision ENT ENT: Negative for dizziness or balance problems Cardio Chest Pain: No Edema: None, Left (slight ankle edema on occasion) Muscle aches with walking: None Resp Respiratory: Positive for SOB [...] vision, dizziness, lightheadedness, frequent falls or orthostatic symptoms Babak Hematologic/Lymphatic: Negative for easy bleeding Endo Endo: Negative for fatigue or excessive sweating Psych Psych: Negative for anxiety or depression Allergy Allergy/Immunology: Negative for hives, Negative for rash Cardiology Exam Const Appearance: cooperative, healthy appearing, comfortable, no acute distress, well developed, well groomed and acute distress Nutritional Appearance: average body habitus Orientation: alert, awake and oriented x3 Head Head: normal to inspection, normocephalic and atraumatic Ears: hearing grossly normal bilaterally Nose: external nose normal Face and Sinus: face symmetric Mouth: oral mucosae normal Eyes Eyelids: eyelids normal Conjunctivae: conjunctivae normal Pupils: PERRL EOM: EOM intact bilaterally Neck Neck: normal visual inspection and full ROM Carotids: normal carotid upstroke Chest Chest inspection: normal inspection of the chest and symmetric chest movement Auscultation: Bilateral: Clear to Auscultation Cardio Palpation: normal PMI Rate: regular rate Rhythm: regular rhythm Heart sounds: S1 normal and S2 normal GI GI: normal to inspection, soft, no hepatosplenomegaly and bowel sounds present Neuro General: alert, awake, oriented x3 and moves all extremities Skin Skin: no rashes or lesions noted Extremities Pulses: Normal: Right Radial Pulse, Left Radial Pulse Lower Extremity Edema: None: Bilateral Musculoskel Musculoskeletal: joint tenderness (right knee) Psych Psychological: normal affect Supplemental Info She had a transthoracic echocardiogram performed on 03/27/2017. The results are as noted below. Interpretation Summary The study was technically difficult. Left ventricular systolic function is normal. The estimated ejection fraction is 60 %. The left atrium is mildly enlarged. Mild (1+) mitral valve insufficiency. Trivial tricuspid valve insufficiency. Trivial pericardial effusion. There are no echocardiographic indications of cardiac tamponade. Right ventricular systolic pressure estimated to be 23 mmHg. She had a stress nuclear imaging study performed on 03/24/2017. The results [...] had a Holter monitor performed on 01/08/2013. The results are as noted below. 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 She will continue to be followed by history, exam, and echocardiogram as deemed appropriate. 3. Hyperlipidemia, unspecified hyperlipidemia type E78.5 Plan A copy of her most recent lipid labs would be appreciated for continuity of care. 4. Benign hypertension I10 Plan Her blood pressure appears to be well controlled. She will continue medical therapy and follow-up. Plan Detail Additional Comments She will be scheduled for an outpatient visit approximately 1 year unless needed sooner. In the interim, if she does proceed with orthopedic surgery, barring unforeseen change in her clinical status, it does not appear that she requires further cardiac diagnostic studies or therapeutic intervention prior to her noncardiac surgery. Should she proceed with non cardiac surgery then she should have close monitoring of her cardiac rate, rhythm, and blood pressure during and following her surgery. An an attempt should be made to avoid over hydration and volume overload. The above was discussed with the patient and she was in agreement. Thank you for allowing me to participate in the care of your patient. Please don't hesitate to call if any issues arise. This note was generated using a voice recognition system [...] Romel Silverio MD> Date Romel Silverio MD Cosigner Signature: Date (if applicable) CC: Nguyen Tineo TOLL COLLECTOR; Austen Byrne MD URINALYSIS, COMPLETE Collected: 02/09/2018 Status: F Source: GRAY 5:39 PM [facility] REPOSITORY Order Comment: How was Urine Obtained? 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 LAB L400.3400 Negative mg/dl Normal KETONE UR Negative LAB L400.3465 1.002-1.030 Normal SP.GR. DIPSTX 1.010 LAB L400.3550 5.0 - 8.0 pH Normal UR 6.5 LAB L400.3600 Negative mg/dl High PROT DIPSTX 15 LAB L400.3700 Normal mg/dl High UROBILI 1 LAB L400.3750 Negative High NITRITE UR Positive LAB L400.3780 Negative /ul High OCCULT 10 BLOOD-UR LAB L400.3800 Negative /ul High LEUK ESTERASE 25 LAB L400.4050 0-5 /hpf Normal WBC 0-5 SEEN LAB L400.4100 0-5 /hpf Normal RBC-UA 0 SEEN LAB L400.4150 5-10 /hpf Normal SQUAM EPI 0 SEEN LAB L400.4300 None Seen /hpf Normal BACTERIA 0 SEEN LAB L400.4350 <or=2+ /hpf Normal MUCUS, URINE 0 SEEN Performed By: #### L400.0001 #### [facility] [address] [place], [place], [address] Observed: 02/09/2018 Status: F Source: VINCENT CULTURE, URINE 5:39 PM [facility] REPOSITORY Urine Culture Below infection level. ORGANISM 1: Mixed Gram Positive Organisms [place] Count 1000-10,000 Performed By: #### M100.0650 #### [facility] [address] [place], [place], [address] URGENT CARE VISIT Observed: 02/09/2018 Status: F Source: GRAY REPORT 11:31 AM [facility] REPOSITORY [facility] [address] [place] [address] [address] [place], [place] [address] OFFICE VISIT Date of Service: 02/09/18 MR#: [id number] Acct: [id number] Name: MAR NAQVI Rep #: [id number] : 1935 Provider: Anjel DUONG Age/Sex: 82/F Location: [facility] Status: Signed Intake Vital Signs02/09/18 Height 5 ft 1 in Intake Visit Reasons: uti Allergies Sulfa (Sulfonamide Antibiotics) Allergy (Verified 02/09/18 11:20) Unknown morphine Adverse Reaction (Verified 02/09/18 11:20) Nausea/Vom/Diarrhea Medications Amlodipine [Norvasc] 2.5 mg PO DAILY 06/03/16 [History Confirmed 02/09/18] Aspirin [Aspirin, Baby] 81 mg PO DAILY@0800 03/04/16 [History Confirmed 02/09/18] Estrogens, Conjugated [Premarin] 0.625 mg PO PRN PRN 03/04/16 [History Confirmed 02/09/18] Fluticasone/Salmeterol [Advair Hfa 115-21 Mcg Inhaler] 2 [...] 02/09/18 [Rx Confirmed 02/09/18] PFSH Medical History Arthritis (Acute) Asthma (Acute) Diarrhea (Acute) Fatigue (Acute) Incontinence (Acute) Knee pain (Acute) Limb weakness (Acute) SOB (shortness of breath) (Acute) Shoulder pain (Acute) Hypertension (Chronic) Surgical History Hx of bladder repair surgery (Acute) Hx of cholecystectomy (Acute) Hx of hysterectomy (Acute) Family History Other Heart disease Hypertension Social History Smoking Status: Never smoker HPI HPI Details: MAR NAQVI, is a 82 F who presents to the office today for concern for possible UTI. Patient states that she has had increased frequency, urgency and burning with urination. She states the symptoms have been ongoing for the past 3 or 4 days with no change. The dysuria was relieved yesterday with Azo. She denies any fever, chills, sweats. No nausea, vomiting, diarrhea. No other associated symptoms or alleviating/aggravating factors. ROS Const Constitutional: No body ache, chills or fever(s) Resp Respiratory: No shortness of breath Cardio Cardiology: No lightheadedness, palpitations or irregular heart rhythm Gastro GI: No abdominal pain Genitourinary-Female: Positive for burning urination, painful urination and urinary frequency; no pelvic pain, painful intercourse or blood in urine Neuro Neurology: No confusion or behavioral changes Psych Psychiatric: No confusion, No behavioral changes Exam Const General: cooperative, healthy appearing Resp Effort AND Inspection: normal respiratory effort Auscultation: Bilateral: Clear to Auscultation Cardio Rate: regular rate Rhythm: regular rhythm GI Auscultation: normal bowel sounds General: No CVA tenderness Psych Appearance: grossly normal Mental Status: mental status grossly normal Results BMSUA Office Urine Color YELLOW Last Edit by Katina Corbett on 02/09/18 11:23 Office Urine Clarity Clear Last Edit by Katina Corbett on 02/09/18 11:23 Assessment AND Plan Problems 1. Cystitis N30.90 Status Acute Plan Macrobid as prescribed today. Encouraged to get plenty of rest, drink lots of clear liquids, and use Tylenol or Ibuprofen (unless contraindicated) for fever and comfort. Patient also educated on other symptomatic management techniques. To be seen in 7-10 days if no improvement; sooner if worsening of symptoms. Patient advised of potential red flags when appropriate report to the ED. Patient verbalized understanding of all the above. Orders Orders: Medications New: nitrofurantoin monohyd/m-cryst 100 mg administer with a meal/food1 cap PO Q12H 7 days ; swallow whole; do not open, crush, dissolve , or chew Coding Level of Care Code Off vis,est,level 3 Diagnoses Cystitis N30.90 02/09/18 1131 <Electronically signed by Anjel DUONG> Date Anjel DUONG Cosigner Signature: Date (if applicable) CC: Observed: 01/26/2018 Status: F Source: VINCENT CULTURE, R/O STREP A 3:27 PM [facility] REPOSITORY SARA Culture No Group A Beta Streptococcus isolated. * This cultures intended use is to screen for Beta Streptococcus A only. All other pathogens and potential pathogens will not be screened for or reported. If a complete workup of all potential pathogens is indicated an order for a routine throat culture is required. Performed By: #### M100.010 #### [facility] [address] [place], [address] URGENT CARE VISIT Observed: 01/26/2018 Status: F Source: VINCENT REPORT 12:54 PM [facility] REPOSITORY [facility] [address] [place] [address] [address] [place] [address] OFFICE VISIT Date of Service: 01/26/18 MR#: [id number] Acct: [id number] Name: MAR NAQVI Anselmo Rep #: [id number] : 1935 Provider: Anjel DUONG Age/Sex: 82/F Location: [facility] Status: Signed Intake Vital Signs01/26/18 Height 5 ft 1.5 in Intake Visit Reasons: sore throat Allergies Sulfa (Sulfonamide Antibiotics) Allergy (Verified 01/26/18 11:01) Unknown morphine Adverse Reaction (Verified 01/26/18 11:01) Nausea/Vom/Diarrhea Medications Amlodipine [Norvasc] 2.5 mg PO DAILY 03/04/16 [History Confirmed 01/26/18] Aspirin [Aspirin, Baby] 81 mg PO DAILY@0800 03/04/16 [History Confirmed 01/26/18] Estrogens, Conjugated [Premarin] 0.625 mg PO PRN PRN 03/04/16 [History Confirmed 01/26/18] Fluticasone/Salmeterol [Advair Hfa 115-21 Mcg Inhaler] 2 puff INHALATION BID 03/04/16 [History Confirmed 01/26/18] Hydrochlorothiazide [Hctz] 25 mg PO DAILY 03/04/16 [History Confirmed 01/26/18] Losartan Potassium [Cozaar] 100 mg PO DAILY 03/04/16 [History Confirmed 01/26/18] Sertraline HCl [Zoloft] 100 mg PO DAILY 03/04/16 [History Confirmed 01/26/18] azelastine 137 mcg (0.1 %) nasal spray aerosol INTRANASAL 25 Days #30 01/26/18 [History Confirmed 01/26/18] [...] Smoking Status: Never smoker HPI HPI Details: MAR NAQVI, is a 82 F who presents to the office today for sore throat and nasal congestion since last night. Patient states that she started have nasal congestion last night and then awoke this morning with sore throat. She states she is concerned that she is watching her grandkids this weekend. She is taking no medications for this current episode. She denies any fever, chills, sweats. No shortness of breath or difficulty breathing. No other associated symptoms or alleviating/aggravating factors. ROS Const Constitutional: No fever(s), headache(s), anorexia, chills or abnormal sleep pattern ENT ENT: Positive for post nasal drip, sore throat, nasal congestion and nasal discharge; no headache(s) or ear pain Resp Respiratory: No shortness of breath Cardio Cardiology: No irregular heart rhythm or palpitations Gastro GI: No nausea/dyspepsia Neuro Neurology: No headache(s) or behavioral changes Psych Psychiatric: No abnormal sleep pattern, No behavioral changes Exam Const General: cooperative, healthy appearing [facility] Head: normal to inspection Ears: hearing grossly normal bilaterally, TM's normal bilaterally, EAC's normal Nose: external nose normal, nasal discharge clear Mouth: oral mucosae normal Throat: abnormal tonsil bilaterally Resp Effort AND Inspection: normal respiratory effort Auscultation: Bilateral: Clear to Auscultation Cardio Palpation: normal PMI Rate: regular rate Rhythm: regular rhythm Neuro General: CN's II-XI intact bilaterally, alert Psych Appearance: grossly normal Mental Status: mental status grossly normal Results BMSRAPIDSTREPA Office Rapid Strep A Negative Last Edit by Katina Corbett on 01/26/18 11:18 Assessment AND Plan Problems 1. Acute pharyngitis, unspecified etiology J02.9 Status Acute Plan Encouraged to get plenty of rest, drink lots of clear liquids, and use Tylenol or Ibuprofen (unless contraindicated) for fever and comfort. Patient also educated on other symptomatic management techniques. To be seen in 7-10 days if no improvement; sooner if worsening of symptoms. Patient advised of potential red flags when appropriate report to the ED. Patient verbalized understanding of all the above. This note was generated with [employer] dictation software. It may contain incorrect words, spelling, and punctuation that were not noted in checking the note before signing. Orders Orders: Medications Discontinued: oxycodone-acetaminophen 5-325 mg Discont1 - 2 tabs PO Q4H PRN PRN Pain Katina Bunyak inued Reason: Pt no longer taking Coding Level of Care Code Off vis,new,level 3 Diagnoses Acute pharyngitis, unspecified etiology J02.9 Pharyngitis/tonsillitis etiology: unspecified etiology 01/26/18 1254 <Electronically signed by Anjel DUONG> Date Anjel DUONG Cosigner Signature: Date (if applicable) CC: ALLERGIES ALLERGIES DATE TYPE / CODE NAME / CODE REACTION SEVERITY SOURCE 03/31/2018 Drug Sulfa Unknown Unknown [place] [facility] Repository CT) [id number](RX NORM) 03/31/2018 Drug morphine/F006 Nausea/Vom/Diarr Unknown [place] [facility] Allergy/4160 371898(RXNORM a [facility] [address](SNOMED ) Repository CT) 03/31/2018 Drug pravastatin/F MYALGIAS SV [place] [facility] Allergy/4160 987336148([facility] [address]84(SNOMED ORM) Repository CT) 10/07/2005 Drug SULFA RASH [facility] Class/358374 (SULFONAMIDE [place] 003(SNOMED ANTIBIOTICS) Repository CT) ENCOUNTERS ENCOUNTERS ADMIT/DISCHARGE ACCOUNT ADMITTING ENCOUNTER LOCATION SOURCE NUMBER CLASS 10/22/2018 [id number] Ambulatory Building:[facility] OHIP Practices Repository 10/09/2018 [id number] Ambulatory [facility] ing:HPRAD Repository 10/09/2018 [id number] [facility] ing:RAD.FUTUR Repository E 09/27/2018/10/01/20 [id number] Ambulatory [address] Repository 09/20/2018 [id number] Ambulatory [facility] ing:OPUS Repository 09/18/2018/09/18/20 [id number] [place]AL[place], [address] Repository 09/14/2018 [id number] Ambulatory [facility] ing:OPBI Repository 09/11/2018 [id number] [facility] ing:OPBD Repository 08/10/2018/08/14/20 [id number] Ambulatory [address] Repository 03/31/2018 [id number] Ambulatory [facility] ing:LAB Repository 03/31/2018/03/31/20 [id number] Ambulatory BMSBuilding:[address] [place] [address] Repository 02/28/2018/02/29/20 [id number] Ambulatory BMSBuilding:[facility] [place] [address] [facility] Repository 02/20/2018 [id number] Ambulatory BMSBuilding:[facility] [place] Repository 02/09/2018 [id number] Ambulatory [facility] ing:MTLAB Repository 02/09/2018/02/10/20 [id number] Ambulatory BMSBuilding:[facility] [place] [address] [place] Repository 01/26/2018 [id number] Ambulatory [facility] ing:LABSPEC Repository 01/26/2018/01/27/20 [id number] Ambulatory BMSBuilding:B [place] [address] [place] Repository FUNCTIONAL STATUS FUNCTIONAL STATUS No Functional Status Records FoundEQUIPMENT EQUIPMENT No Equipment Records FoundPAYERS PAYERS ENCOUNTER GUARANTOR PAYER SUBSCRIBER SOURCE 10/22/2018 Mar E Primary Mar E OHIP Practices ReedDOB: Insurance:[employer] ReedDOB: Repository Adv PlanPolicy [id number] Number: [address], [id number] [address] [place], [place] [address]Fub: Date:6353-29-26Xfan [place] [address]Pva: Name:O Box (HP)Tel: [phone]) [place], [place] ) [phone] () [address]FH: 10/22/2018 Secondary Mar E OHIP Practices Insurance:Summa ReedDOB: Repository [facility] Number: [id number] [address] Date: - [address], [id number] [address]Dtu: Name:O Box ~(3 194[place], [place] 30 () [address]YT: 10/09/2018 MAR E Primary MAR E [place] [id number] [place] Insurance:SUMMA CARE REEDDOB: Community [address], MEDICAREPolicy [id number] [facility] [address]Gri: Number: Repository [id number] (HP) Date:7291-53-58VA [address] [place] [address]NF: 10/09/2018 Secondary NOT GIVENUNK [place] Insurance:SELF PAY [facility] Number: Effective Repository Date:2018-10-09 10/09/2018 MAR E Primary MAR E [place] [id number] [place] Insurance:SUMMA CARE REEDDOB: [address] MEDICAREPolicy [id number] [facility] [address]Cww: Number: Repository [id number] (HP) Date:2807-46-45DX [address] [facility], [place] [address]KZ: 10/09/2018 Secondary NOT GIVENUNK [place] Insurance:SELF PAY [facility] Number: Effective Repository Date:2018-10-09 09/20/2018 MAR E Primary MAR E [place] [id number] M[place] Insurance:SUMMA CARE REEDDOB: Community [address], MEDICAREPolicy [id number] [facility] [address]Fxk: Number: Repository [id number] (HP) Date:8786-09-71QX [address] [facility] [address]IG: 09/20/2018 Secondary NOT GIVENUNK [place] Insurance:SELF PAY [facility] Number: Effective Repository Date:2018-09-17 09/14/2018 MAR E Primary MAR E [place] [id number] [place] Insurance:SUMMA CARE REEDDOB: Community [address], MEDICAREPolicy [id number] [facility] [address]Cqo: Number: Repository [id number] (HP) Date:8574-30-69HH [address] [facility] [address]JY: 09/14/2018 Secondary NOT GIVENUNK [place] Insurance:SELF PAY [facility] Number: Effective Repository Date:2018-09-03 09/11/2018 MAR E Primary MAR E [place] [id number] M[place]RAY Insurance:SUMMA CARE REEDDOB: Community [address] MEDICAREPolicy [id number] Number: Repository [address]Aon: 330 [id number] [phone] (HP) Date:8664-81-04TB [address] [facility], [place] [address]UM: 09/11/2018 Secondary NOT GIVENUNK [place] Insurance:SELF PAY [facility] Number: Effective Repository Date:2018-06-12 03/31/2018 MAR E Primary MAR E [place] [id number] [place] Insurance:SUMMA CARE REEDDOB: Community [address] MEDICAREPolicy [id number] Number: Repository [id number]: 330 [id number] [phone] (HP) Date:7648-84-43VY [address] [address]YB: 03/31/2018 Secondary NOT GIVENUNK [place] Insurance:SELF PAY [facility] Number: Effective Repository Date:2018-03-31 03/31/2018 MAR E Primary MAR E [place] [id number] M[place]RAY Insurance:SUMMA CARE REEDDOB: Community [address] MEDICAREPolicy [id number] Number: Repository [address]Ipq: 330 [id number] [phone] (HP) Date:4669-29-38AN [address] [place] [address]JN: 03/31/2018 Secondary NOT GIVENUNK [place] Insurance:SELF PAY [facility] Number: Effective Repository Date:2018-03-31 02/28/2018 MAR E Primary MAR E [place] [id number] [place] Insurance:SUMMA CARE REEDDOB: Community [address] MEDICAREPolicy [id number] Number: Repository [address]Ycq: 330 [id number] [phone] (HP) Date:3683-73-98PJ [address] SYSTEM[facility], [place] [address]TF: 02/28/2018 Secondary NOT GIVENUNK [place] Insurance:SELF PAY [facility] Number: Effective Repository Date:2018-02-28 02/20/2018 Mar E Primary Mar E [place] [id number] [place] Insurance:SUMMA CARE ReedDOB: [address], MEDICAREPolicy [id number] [facility] [address]Edn: Number: Repository [id number] (HP) Date:6085-13-32SK [address], [place] [address]XQ: 02/20/2018 Secondary NOT GIVENUNK [place] Insurance:SELF PAY [facility] Number: Effective Repository Date:2018-02-20 02/09/2018 Mar E Primary Mar E [place] [id number] [place] Insurance:SUMMA CARE ReedDOB: [address], MEDICAREPolicy [id number] [facility] [address]Xsf: Number: Repository [id number] (HP) Date:5177-88-33EG [address], [place] [address]RN: 02/09/2018 Secondary NOT GIVENUNK [place] Insurance:SELF PAY [facility] Number: Effective Repository Date:2018-02-09 02/09/2018 Mar E Primary Mar E [place] [id number] [place] Insurance:SUMMA CARE ReedDOB: [address], MEDICAREPolicy [id number] [facility] [address]Dpa: Number: Repository [id number] (HP) Date:1551-35-15QQ [address] [facility], [place] [address]NJ: 02/09/2018 Secondary NOT GIVENUNK [place] Insurance:SELF PAY [facility] Number: Effective Repository Date:2018-02-09 01/26/2018 Mar E Primary Mar E [place] [id number] [place] Insurance:SUMMA CARE ReedDOB: [facility] [address], MEDICAREPolicy [id number] [facility] [address]Pqz: Number: Repository [id number] (HP) Date:0194-11-11ZX [address] [facility] HospitalUniqueLAXIANGod[place], [place] [address]TR: 01/26/2018 Secondary NOT GIVENUNK [place] Insurance:SELF PAY [facility] Number: Effective Repository Date:2018-01-26 01/26/2018 Mar E Primary Mar E [place] [id number] [place] Insurance:SUMMA CARE ReedDOB: [facility], MEDICAREPolicy [id number] [facility] [address]Bqi: Number: Repository [id number] (HP) Date:[id number] [place], [place] [address]TJ: 01/26/2018 Secondary NOT GIVENUNK [place] Insurance:SELF PAY [facility] Number: Effective Repository Date:2018-01-26 SOCIAL HISTORY SOCIAL HISTORY No Social History Records FoundFAMILY HISTORY FAMILY HISTORY No Family History Records FoundADVANCE DIRECTIVES ADVANCE DIRECTIVES No Advanced Directives Records FoundINFORMATION SOURCE INFORMATION SOURCE DATE CREATED AUTHOR AUTHOR'S ORGANIZATION 10/24/2018 LEW
== END ==
PROVIDERS: Family Provider Nurse Practitioner; PCP Nurse Practitioner; Visit Provider Nurse Practitioner
DX: Z78.0 Asymptomatic menopausal state (principal); M85.80 Other specified disorders of bone density and structure, unspecified site
CPT/HCPCS: 77080

== ENCOUNTER → 2018-09-14 13:43 | Outpatient (CLI) | payer MEDICARE, SELFPAY ==
[2018-03-31 08:19] VITALS: BMI 27.3
--- NOTE | 2018-09-14 13:47 | BI_ITS ---
MAMMOGRAPHY - BILATERAL SCREENING REASON FOR EXAM: Female, 82 years old. Routine annual screening examination. PERTINENT HISTORY: Non-contributory. Remote right excisional breast biopsy. TECHNIQUE: Digital bilateral breast fara (3D mammographic acquisition) in the CC and MLO projections. 2-D mediolateral oblique (MLO) and craniocaudad (CC) views of both breasts were obtained. CAD: Full Field Digital Mammography with Computer Added Detection was performed. COMPARISON: Comparison is made with prior study dated August 13, 2014 and August 12, 2013. FINDINGS: Breast Composition: The breasts are almost entirely fatty. There now is evidence of a 1.1 cm x 1 cm well-defined nodule in the retroareolar region of the left breast. A similar appearing nodule measuring 7.3 mm x 7 mm is seen in the slightly lateral midportion of the left breast. Correlation with ultrasound is recommended. No other significant abnormalities are identified. BI/SCREENING MAMM (CAD), BILAT IMPRESSION: 2 small well-defined nodules are seen in the left breast as described. Correlation with ultrasound is recommended. ASSESSMENT CATEGORY: BIRADS Category 0: Incomplete. Need additional imaging evaluation. A letter regarding these results will be sent to the patient by the facility within 30 days. Approximately 10% of breast cancers are not detected by mammography. A normal mammogram should not delay biopsy of a clinically suspicious abnormality. [id number] Electronically Signed: Rogelio Joseph MD at 15:55 EST Tel [phone], Service support ,
--- OUTSIDE RECORDS SUMMARY | 2018-12-19 04:25 | XMS RPT_ITS ---
:1935 Author Organization OHIP Support Name Relationship Address Phone KEYUR MAYUR NaturalDaughter [address] + [place] [address] R Unknown Unavailable Unavailable DRISS, ERIC NaturalDaughter Unavailable + KEYUR, MAYUR NaturalDaughter [address] + [place] [address] R Unknown Unavailable Unavailable DRISS, ERIC NaturalDaughter Unavailable + KEYUR, MAYUR NaturalDaughter [address] + [place] [address] R Unknown Unavailable Unavailable DRISS, ERIC NaturalDaughter Unavailable + KEYUR, MAYUR NaturalDaughter [address] + [place] [address] R Unknown Unavailable Unavailable DRISS, ERIC NaturalDaughter Unavailable + KEYUR, MAYUR NaturalDaughter [address] + [place] [address] R Unknown Unavailable Unavailable DRISS, ERIC NaturalDaughter [address] + [place] [address] KEYUR, MAYUR NaturalDaughter [address] + [place] [address] R Unknown Unavailable Unavailable DRISS, ERIC NaturalDaughter [address] + [place] [address] KEYUR, MAYUR NaturalDaughter [address] + [place] [address] R Unknown Unavailable Unavailable DRISS, ERIC NaturalDaughter [address] + [place] [address] KEYUR, MAYUR NaturalDaughter [address] + [place] [address] R Unknown Unavailable Unavailable DRISS, ERIC NaturalDaughter [address] + [place] [address] KEYUR, MAYUR NaturalDaughter [address] + [place] [address] R Unknown Unavailable Unavailable DRISS, ERIC NaturalDaughter [address] + [place] [address] KEYUR, MAYUR NaturalDaughter [address] + [place] [address] R Unknown Unavailable Unavailable DRISS, ERIC NaturalDaughter [address] + [place] [address] KEYUR, MAYUR NaturalDaughter [address] + [place] [address] R Unknown Unavailable Unavailable DRISS, ERIC NaturalDaughter [address] + [place] [address] KEYUR, MAYUR NaturalDaughter [address] + [place] [address] R Unknown Unavailable Unavailable DRISS, ERIC NaturalDaughter [address] + [place] [address] KEYUR, MAYUR NaturalDaughter [address] + [place] [address] R Unknown Unavailable Unavailable DRISS, ERIC NaturalDaughter [address] + [place] [address] Care Team Providers Name Role Phone MASOUD LINDSEY Attending Unavailable NGUYEN TINEO (INSPECTION CLERK) Referring Unavailable MASOUD LINDSEY Admitting Unavailable MASOUD LINDSEY Attending Unavailable MASOUD LINDSEY Referring Unavailable MASOUD LINDSEY Attending Unavailable NGUYEN TINEO (INSPECTION CLERK) Referring Unavailable Nguyen Tineo Attending Unavailable Nguyen Tineo Referring Unavailable Nguyen Tineo Consulting Unavailable NurisaNguyen Attending Unavailable Max Nguyen Primary Care Unavailable Anjel Mason Attending Unavailable Nguyen Tineo Referring Unavailable Max Nguyen Primary Care Unavailable Nguyen Tineo Attending Unavailable Nguyen Tineo Referring Unavailable Nguyen Tineo Primary Care Unavailable Melva Cisse Attending Unavailable Max Nguyen Primary Care Unavailable Melva Cisse Attending Unavailable Nguyen iTneo Referring Unavailable Romel Sliverio Attending Unavailable CiesaNguyen Referring Unavailable Ciesglynn, Nguyen Primary Care Unavailable Rubina Lang Attending Unavailable Marlon, Anjel Attending Unavailable Marlon, Anjel Referring Unavailable Brittanyesglynn, Nguyen Primary Care Unavailable Marlon, Anjel Attending Unavailable Brittanyesa, Nguyen Referring Unavailable Ciesa, Nguyen Primary Care Unavailable Marlon, Anjel Attending Unavailable Marlon Anjel Referring Unavailable Brittanyesglynn, Nguyen Attending Unavailable Brittanyesa, Nguyen Referring Unavailable Max, Nguyen Primary Care Unavailable Max, Nguyen Attending Unavailable Nguyen Tineo Referring Unavailable Max, Nguyen Primary Care Unavailable Max, Nguyen Attending Unavailable Max, Nguyen Primary Care Unavailable Max, Nguyen Referring Unavailable Purpose Purpose PROBLEMS PROBLEMS DATE TYPE CONDITION / CODE ATTENDING STATUS SOURCE 09/18/2018 Active Diarrhea, ROSALIA, Active [place] unspecified / MASOUD [facility] Main R19.7(ICD-10) [place] Repository 09/11/2018 Unknown N95.9 - Unspecified Nguyen Tineo Active [place] [facility] perimenopausal Hospital disorder / Repository N95.9(ICD-10) 03/31/2018 Unknown R35.0 - Frequency of Betito, Active [facility] micturition / [facility] R35.0(ICD-10) Hospital Repository 03/31/2018 Unknown N39.0 - Urinary Betito, Active [facility] tract infection, [facility] site not specified / Hospital N39.0(ICD-10) Repository 03/31/2018 Unknown A49.9 - Bacterial Betito, Active [facility] infection, [facility] unspecified / Hospital A49.9(ICD-10) Repository 02/09/2018 Unknown N30.90 - Cystitis, Ilan Masony Active [facility] unspecified without Community hematuria / Hospital N30.90(ICD-10) Repository 01/27/2018 Unknown J02.9 - Acute Anjel Mason Active [place] pharyngitis, Community unspecified / Hospital J02.9(ICD-10) Repository PROCEDURES PROCEDURES No Procedure Records FoundVITAL SIGNS VITAL SIGNS No Vital Signs Records FoundRESULTS RESULTS HIP, UNI W/ PELVIS Observed: 10/09/2018 Status: F Source: [place] 2-3 VIEWS 12:35 PM [facility] REPOSITORY [facility] Imaging Services [address] [place] [address] HIP, UNI W/ Pelvis 2-3 Views MR#: [id number] Acct: [id number] Name: MAR NAQVI Rep #: [id number] : 1935 F 82 From: Nehemiah Roberto MD PCP: Nguyen Tineo NP Status: REG CLI Study: HIP, UNI W/ Pelvis 2-3 Views Date of Exam: 10/09/18 Exam# [id number] Ordering Dr: Nguyen Tineo INSPECTION CLERK-C HISTORY: Hip pain COMPARISON: CT abdomen and [...] Service support , CC: Nguyen Tineo NP Sheep Boner: Signed PROGRESS Observed: 09/27/2018 Status: COMPLETED Source: [place] 1:21 PM [facility] REPOSITORY HNO ID: [id number] Author: Masoud Lindsey Service: (none) Author Type: Physician Type: Progress Notes Filed: 09/27/2018 1:25 PM Note Text: FOLLOW UP VISIT - ENDOSCOPY NAME: Mar Naqvi [facility] NO.: [id number] DATE OF SERVICE: 09/27/2018 : 1935 REFERRING [...] not see record of stool cultures to [facility]. I performed upper and lower endoscopy [...] abdominal complaints I recommended a trial of aibt-qwv-yosbynk Prilosec to see if this improved her symptoms of looser stools or if she did note improvement in reflux issues that she didn't realize prior to taking the medicine. Otherwise if she notes no improvement korm-bkt-boqnewc Prilosec she could discontinue that medication. Diagnoses: (R19.7) Diarrhea, unspecified type (primary encounter diagnosis) (R10.9) Abdominal cramping Return to Clinic: The patient is instructed to follow- up with me as needed. Masoud Lindsey MD CNOV Observed: 09/27/2018 Status: COMPLETED Source: [place] 1:00 PM [facility] REPOSITORY Office Visit (GENSWS) MAR NAQVI ([id number]) 1935 F Date Time Provider Department 09/27/18 1:00 PM MASOUD LINDSEY During your visit today, we recorded the following information about you: Masoud Lindsey MD 09/27/2018 1:25 PM Signed FOLLOW UP VISIT - ENDOSCOPY NAME: Mar Naqvi CLINIC NO.: [id number] DATE OF SERVICE: 09/27/2018 : 1935 REFERRING [...] not see record of stool cultures to [facility]. I performed upper and lower endoscopy [...] abdominal complaints I recommended a trial of dlbc-owb-dyuolmw Prilosec to see if this improved her symptoms of looser stools or if she did note improvement in reflux issues that she didn't realize prior to taking the medicine. Otherwise if she notes no improvement bwpf-jrh-mjuqaad Prilosec she could discontinue that medication. Diagnoses: (R19.7) Diarrhea, unspecified type (primary encounter diagnosis) (R10.9) Abdominal cramping Return to Clinic: The patient is instructed to follow- up with me as needed. Masoud Lindsey MD Referring Provider: NGUYEN TINEO [[id number]] Allergies As of Date: 09/27/2018 Noted Allergy [...] 137 MCG (0.1 %) NA* Use 1 [place] in each nostril t* * GERBER-600 WITH [...] BREAST LIMITED Observed: 09/20/2018 Status: F Source: [place] UNILATERAL 1:28 PM [facility] REPOSITORY [facility] Imaging Services [address] [place] [address] Breast Limited Unilateral MR#: [id number] Acct: [id number] Name: MAR NAQVI Rep #: [id number] : 1935 F 82 From: Rogelio Joseph MD PCP: Nguyen Tineo NP Status: REG CLI Study: Breast Limited Unilateral Date of Exam: 09/20/18 Exam# [id number] Ordering Dr: Nguyen Tineo NP-Khloe STUDY: ULTRASOUND [...] Rogelio Joseph MD at 15:46 EST Tel [phone], Service support , CC: Nguyen Tineo NP Sheep Boner: Signed NURSING PROG Observed: 09/18/2018 Status: COMPLETED Source: [place] 12:57 PM [facility] REPOSITORY HNO ID: [id number] Author: Fior Scott (Rn) NEEMA New Service: Nursing Author Type: Registered Nurse Type: Nursing Progress Note Filed: 09/18/2018 12:57 PM Note Text: Patient did not experience a fall prior to discharge. Patient did not experience a burn prior to discharge. Firo New RN PT ED Observed: 09/18/2018 Status: COMPLETED Source: [place] 12:37 PM [facility] REPOSITORY HNO ID: [id number] Author: Fior KauffmanRn) NEEMA New Service: Nursing [...] NURSING PROG Observed: 09/18/2018 Status: COMPLETED Source: [place] 12:00 PM [facility] REPOSITORY HNO ID: [id number] Author: Fior KauffmanRn) NEEMA New Service: Nursing Author Type: Registered Nurse Type: Nursing Progress Note Filed: 09/18/2018 12:19 PM Note Text: Received patient in post op following colonoscopy and EGD. Patient positioned on left side. Abdomen soft. Vital signs stable. Warm blanket applied to patient. Patient's daughter at bedside. Fior New RN NURSING PROG Observed: 09/18/2018 Status: COMPLETED Source: [place] 11:59 AM [facility] REPOSITORY HNO ID: [id number] Author: Susana Saunders RN Service: Nursing Author Type: Registered Nurse Type: Nursing Progress Note Filed: 09/18/2018 12:00 PM Note Text: Patient did not experience a fall within the Intraoperative area. Patient did not experience a burn within the Intraoperative area. Susana Saunders RN NURSING PROG Observed: 09/18/2018 Status: COMPLETED Source: [place] 11:06 AM [facility] REPOSITORY HNO ID: [id number] Author: Fior New RN Service: Nursing Author [...] PT ED Observed: 09/18/2018 Status: COMPLETED Source: [place] 10:24 AM [facility] REPOSITORY HNO ID: [id number] Author: Fior Scott (Rn) NEEMA New Service: [...] HISTORY PHYSICAL Observed: 09/18/2018 Status: COMPLETED Source: [place] 10:07 AM [facility] REPOSITORY HNO ID: [id number] Author: Masoud Lindsey Service: General Surgery Author [...] not see record of stool cultures to [facility]. ? The patient is being seen [...] azelastine (ASTELIN) 0.1% nasal spray Use 1 [place] in each nostril twice daily. Aspirin 82 [...] ? Occupational History Occupation Employer Comment Retired [employer] ? Social History Main Topics Smoking status: [...] to surgery. ? I plan to use Kivra bowel preparation for endoscopy ? ? ? Diagnoses: (R19.7) Diarrhea, unspecified type (primary encounter diagnosis) (R10.9) Abdominal cramping ? This note will be forwarded to Nguyen Tineo CNP. Return to Clinic: The patient is instructed to follow-up with me after the testing has been completed. ? Masoud Lindsey MD SURGICAL PATHOLOGY Observed: 09/18/2018 Status: F Source: [place] 12:00 AM [facility] REPOSITORY Specimen originated from [facility] Specimen #: [id number] Submitting Physician: MASOUD LINDSEY ([email or web address]) FINAL DIAGNOSIS [...] Received in formalin is one piece of burogs, soft tissue measuring 0.3 x 0.2 x [...] in one cassette. Gross examination performed at [facility], [address] [place] [address] 09/19/2018 10:01:56 AM Date of Report: 09/20/2018 Date of Procedure: 09/18/2018 Date of Receipt: 09/18/2018 Submitted by: MASOUD LINDSEY ([email or web address]) [facility] Diagnostic interpretation performed at [place] [address]. SCREENING MAMM (CAD), Observed: 09/14/2018 Status: F Source: [facility] 1:47 PM [facility] REPOSITORY [facility] Imaging Services [address] [place] [address] SCREENING MAMM (CAD), BILAT MR#: [id number] Acct: [id number] Name: MAR NAQVI Rep #: [id number] : 1935 F 82 From: Rogelio Joseph MD PCP: Nguyen Tineo NP Status: REG CLI Study: SCREENING MAMM (CAD), BILAT Date of Exam: 09/14/18 Exam# [id number] Ordering Dr: Nguyen Tineo INSPECTION CLERK-Khloe MAMMOGRAPHY - BILATERAL SCREENING REASON FOR EXAM: [...] delay biopsy of a clinically suspicious abnormality. [id number] Electronically Signed: Rogelio Joseph MD at 15:55 EST Tel [phone], Service support , CC: Nguyen Tineo NP Sheep Boner: Signed DEXA BONE DENSITY Observed: 09/11/2018 Status: F Source: [place] STUDY 12:11 PM [facility] REPOSITORY [facility] Imaging Services [address] [place] [address] Dexa Bone Density Study MR#: [id number] Acct: [id number] Name: MAR NAQVI Rep #: [id number] : 1935 F 82 From: Rogelio Joseph MD PCP: Nguyen Tineo NP Status: REG CLI Study: Dexa Bone Density Study Date of Exam: 09/11/18 Exam# [id number] Ordering Dr: Nguyen Tineo NP-Khloe STUDY: DUAL [...] Rogelio Joseph MD at 15:42 EST Tel [phone], Service support , CC: Nguyen Tineo NP Sheep Boner: Signed PROGRESS Observed: 08/11/2018 Status: COMPLETED Source: [place] 9:16 AM [facility] REPOSITORY O ID: [id number] Author: Masoud Lindsey Service: (none) Author Type: [...] not see record of stool cultures to [facility]. The patient is being seen by [...] breast, incisional - COLONOSCOP W/ OR W/O [facility] SPEC 08/26/13 - LAPAROSCOPIC CHOLEYCYSTECTOMY 96 Cholecystectomy, lap - PAST SURGICAL HISTORY OF 's ANTERIOR URETHROPEXY - PAST SURGICAL HISTORY OF ANTERIOR COLPORAPHY - TOTAL ABDOM HYSTERECTOMY 71 Hysterectomy, LAKEISHA,BSO (fibroids) Current Outpatient Prescriptions: losartan (COZAAR) 50 mg tablet amLODIPine (NORVASC) 2.5 mg tablet ADVAIR HFA 115-21 mcg/actuation inhaler azelastine (ASTELIN) 0.1% nasal spray Use 1 [place] in each nostril twice daily. Aspirin 81 [...] 2 Occupational History Occupation Employer Comment Retired [employer] Social History Main Topics Smoking status: Never Smoker Alcohol use: Yes Comment: wine rarely Drug use: No Sexual activity: No Comment: Ronny.A.HLizzyBSO FAMILY HISTORY: FAMILY HISTORY Problem Relation Age of Onset - Hypertension Mother AND DEMENTIA - Hypertension Father - other (Other [Other]) Brother LEUKEMIA REVIEW OF SYMPTOMS: The review of systems data was entered by the nurse and reviewed by ak Nursing Notes: Aster Alaniz LPN 08/10/2018 11:56 [...] screening? 2016 Last Colonoscopy: 2012 Aster Alaniz EDGE BONDER PHYSICAL EXAMINATION: General: The patient is 82 [...] MD CNOV Observed: 08/10/2018 Status: COMPLETED Source: [place] 11:30 AM [facility] REPOSITORY Office Visit (GENSWS) MAR NAQVI ([id number]) 1935 F Date Time Provider Department 08/10/18 [...] not see record of stool cultures to [facility]. The patient is being seen by [...] breast, incisional - COLONOSCOP W/ OR W/O [facility] SPEC 08/26/13 - LAPAROSCOPIC CHOLEYCYSTECTOMY 96 Cholecystectomy, lap - PAST SURGICAL HISTORY OF 81's ANTERIOR URETHROPEXY - PAST SURGICAL HISTORY OF ANTERIOR COLPORAPHY - TOTAL ABDOM HYSTERECTOMY 71 Hysterectomy, LAKEISHA,BSO (fibroids) Current Outpatient Prescriptions: losartan (COZAAR) 50 mg tablet amLODIPine (NORVASC) 2.5 mg tablet ADVAIR HFA 115-21 mcg/actuation inhaler azelastine (ASTELIN) 0.1% nasal spray Use 1 [place] in each nostril twice daily. Aspirin 82 [...] 2 Occupational History Occupation Employer Comment Retired [employer] Social History Main Topics Smoking status: Never Smoker Alcohol use: Yes Comment: wine rarely Drug use: No Sexual activity: No Comment: T.A.HLizzyBSO FAMILY HISTORY: FAMILY HISTORY Problem Relation Age of Onset - Hypertension Mother AND DEMENTIA - Hypertension Father - other (Other [Other]) Brother LEUKEMIA REVIEW OF SYMPTOMS: The review of systems data was entered by the nurse and reviewed by ak Nursing Notes: Aster Alaniz LPN 08/10/2018 11:56 [...] screening? 2016 Last Colonoscopy: 2012 Aster Alaniz EDGE BONDER PHYSICAL EXAMINATION: General: The patient is 82 [...] Masoud Lindsey MD Referring Provider: NGUYEN TINEO [[id number]] Allergies As of Date: 08/10/2018 Noted Allergy Reaction SULFA (SULFONAMIDE ANTIBIOTICS) 10/07/2005 2 - Rash Date Reviewed: 08/10/2018 Reviewed by: Aster Alaniz LPN - Fully Assessed Reason for Visit: Diarrhea [35] Primary Visit Diagnosis:Diarrhea, unspecified type [R19.7] Other Visit Diagnosis:Abdominal cramping [R10.9] Order(s):MEAGAN PT ED DIGESTIVE DISEASES [] Order #: [id number]: 1 [] peg 3350-Electrolytes (GOLYTELY) 236-22.74-6.74 -5.86 gram suspensionTake 4,000 mL by mouth one time only for 1 dose. Refer to printed prep instructions from your doctor.Disp: 1 BottleRfl: 0 EGD [[id number]] Order #: [id number] FUTURE COLONOSCOPY - DIAGNOSTIC [[id number]] Order #: [id number] FUTURE MEAGAN PT ED DIGESTIVE DISEASES [] Order #: [id number]. #:[id number]: 1 Prescriptions as of 08/10/2018 Sig: LOSARTAN 50 MG TABLET AMLODIPINE 2.5 MG TABLET ADVAIR HFA 115 MCG-21 MCG/ACT* AZELASTINE 137 MCG (0.1 %) NA* Use 1 [place] in each nostril t* * ASPIRIN 81 [...] screening? 2016 Last Colonoscopy: 2012 Aster Alaniz EDGE BONDER Prescriptions ordered this encounter Disp Refills Start End PEG 3350-ELECTROLYTES 236 GRAM-22.74* 1 Christian* 0 08/10/2018 08/10/2018 Route: ORAL Sig: Take 4,000 mL by mouth one time only for 1 dose. Refer to printed prep instructions from your doctor. Letter Text Encounter Status:Closed by MASOUD LINDSEY MD on 08/11/18 HOSP Observed: 08/10/2018 Status: COMPLETED Source: [place] 12:00 AM [facility] REPOSITORY Patient:Mar Naqvi MRN: <[id number]> Height:5' 0(1.524 m) Weight:No patient weight recorded [...] CARE VISIT Observed: 03/31/2018 Status: F Source: [place] REPORT 8:57 AM [facility] REPOSITORY [facility] [address] [place] [address] OFFICE VISIT Date of Service: 03/31/18 MR#: [id number] Acct: [id number] Name: MAR NAQVI Rep #: [id number] : 1935 Provider: RHODA Cisse Age/Sex: 82/F Location: [place] Status: Signed Intake Vital Signs03/31/18 Height 5 [...] Medications New: nitrofurantoin monohyd/m-cryst 100 mg (Macrobid) wkcpwe490 mg PO Q12H 7 days UTI N39.0 ster with a meal/food; swallow whole; do not open, crush, dissolve , or chew Coding Level of Care Code Off vis,new,level 3 Diagnoses UTI (urinary tract infection), bacterial N39.0; A49.9 03/31/18 0857 <Electronically signed by Melva DUONG> Date Melva DUONG Cosigner Signature: Date (if applicable) CC: URINALYSIS, COMPLETE Collected: 03/31/2018 Status: F Source: [place] 8:30 AM [facility] REPOSITORY Order Comment: How was Urine Obtained? [...] 0-5 SEEN Performed By: #### L400.0001 #### [facility] [address] [place], [address] Observed: 03/31/2018 Status: F Source: [place] CULTURE, URINE 8:30 AM [facility] REPOSITORY Urine Culture ORGANISM 1: Mixed Gram Positive Organisms [place] Count 11,000-25,000 MIX CULTURE Mixed contaminants. Submit a new specimen if indicated. Performed By: #### M100.0650 #### [facility] [address] [place], [address] CARDIOLOGY VISIT Observed: 02/28/2018 Status: F Source: [place] RE[place] 2:03 PM [facility] REPOSITORY [facility] [address] [place] [address] OFFICE VISIT Date of Service: 02/28/18 MR#: [id number] Acct: [id number] Name: MAR NAQVI Rep #: [id number] : 1935 Provider: Romel Silverio MD Age/Sex: 82/F Location: [facility] Status: Signed HPI HPI Details: MAR NAQVI, [...] Signature: Date (if applicable) CC: Nguyen Tineo INSPECTION CLERK; Austen Byrne MD URINALYSIS, COMPLETE Collected: 02/09/2018 Status: F Source: [place] 5:39 PM [facility] REPOSITORY Order Comment: How was Urine Obtained? OLIVE PACKER TO SPECIFY TYPE CODE TESTS RESULT OUT [...] 0 SEEN Performed By: #### L400.0001 #### [facility] [address] [place], [place], [address] Observed: 02/09/2018 Status: F Source: [place] CULTURE, URINE 5:39 PM [facility] REPOSITORY Urine Culture Below infection level. ORGANISM 1: Mixed Gram Positive Organisms [place] Count 1000-10,000 Performed By: #### M100.0650 #### [facility] [address] [facility] [place], [place], [address] URGENT CARE VISIT Observed: 02/09/2018 Status: F Source: [place] 11:31 AM [facility] REPOSITORY [facility] [address] [place] [address] [address] [place], [place] [address] OFFICE VISIT Date of Service: 02/09/18 MR#: [id number] Acct: [id number] Name: MAR NAQVI Rep #: [id number] : 1935 Provider: Anjel DUONG Age/Sex: 82/F Location: [facility] Status: Signed Intake Vital Signs02/09/18 Height 5 [...] Status: Never smoker HPI HPI Details: MAR NAQIV, is a 82 F who presents to [...] applicable) CC: Observed: 01/26/2018 Status: F Source: [place] CULTURE, R/O STREP A 3:27 PM [facility] REPOSITORY SARA Culture No Group A Beta Streptococcus isolated. * This cultures intended use is to screen for Beta Streptococcus A only. All other pathogens and potential pathogens will not be screened for or reported. If a complete workup of all potential pathogens is indicated an order for a routine throat culture is required. Performed By: #### M100.010 #### [facility] [address] [place], [address] URGENT CARE VISIT Observed: 01/26/2018 Status: F Source: [place] REPORT 12:54 PM [facility] REPOSITORY [facility] [address] [place] [address] [address] [place] [address] OFFICE VISIT Date of Service: 01/26/18 MR#: [id number] Acct: [id number] Name: MAR NAQVI Anselmo Rep #: [id number] : 1935 Provider: Anjel DUONG Age/Sex: 82/F Location: [facility] Status: Signed Intake Vital Signs01/26/18 Height 5 [...] changes Exam Const General: cooperative, healthy appearing [facility] Head: normal to inspection Ears: hearing [...] the above. This note was generated with Renew[employer] dictation software. It may contain incorrect words, [...] Drug Sulfa Unknown Unknown [place] [facility]160 [facility])/ Repository CT) [id number](RX NORM) 03/31/2018 Drug morphine/F006 Nausea/Vom/Diarr Unknown [place] [facility] Allergy/4160 026421(RXNORM a [facility] [address](SNOMED ) Repository CT) 03/31/2018 Drug pravastatin/F MYALGIAS SV [place] [facility] Allergy/4160 899356060([facility] [address](SNOMED ORM) Repository CT) 10/07/2005 Drug SULFA RASH [facility] Class/815824 (SULFONAMIDE Main [place] 003(SNOMED ANTIBIOTICS) Repository CT) ENCOUNTERS ENCOUNTERS ADMIT/DISCHARGE ACCOUNT ADMITTING ENCOUNTER LOCATION SOURCE NUMBER CLASS 10/22/2018 2790 Ambulatory Building:[facility] OHIP Practices Repository 10/09/2018 [id number] Ambulatory [facility] Hospital ing:HPRAD Repository 10/09/2018 [id number] [facility] ing:RAD.FUTUR Repository E 09/27/2018/10/01/20 [id number] Ambulatory [address] Repository 09/20/2018 [id number] Ambulatory [facility] ing:OPUS Repository 09/18/2018/09/18/20 [id number] ROSALIA, [address] Repository 09/14/2018 [id number] Ambulatory [facility] ing:OPBI Repository 09/11/2018 [id number] [facility] ing:OPBD Repository 08/10/2018/08/14/20 [id number] Ambulatory [address] Repository 03/31/2018 [id number] Ambulatory [facility] ing:LAB Repository 03/31/2018/03/31/20 [id number] Ambulatory BMSBuilding:B [place] [address] [place].[facility] Repository 02/28/2018/02/29/20 [id number] Ambulatory BMSBuilding:B [place] [address] [place].[facility] Repository 02/20/2018 [id number] Ambulatory BMSBuilding:B [place].[facility] Repository 02/09/2018 [id number] Ambulatory [facility] Hospital ing:MTLAB Repository 02/09/2018/02/10/20 [id number] Ambulatory BMSBuilding:B [place] [address] [place].[facility] Repository 01/26/2018 [id number] Ambulatory [facility] Hospital ing:LABSPEC Repository 01/26/2018/01/27/20 [id number] Ambulatory BMSBuilding:B [place] 18 [place].[facility] Repository FUNCTIONAL STATUS FUNCTIONAL STATUS No Functional Status Records FoundEQUIPMENT EQUIPMENT No Equipment Records FoundPAYERS PAYERS ENCOUNTER GUARANTOR PAYER SUBSCRIBER SOURCE 10/22/2018 Mar E Primary Mar E OHIP Practices ReedDOB: Insurance:[employer] ReedDOB: Repository Adv PlanPolicy [id number] Number: [address], [id number] [address], [place] [address]Fay: Date:4624-50-73Ibyx [place] [address]Lbv: Name:O Box (HP)Tel: [phone] [place]Ak[place], [place] ) [phone] () 098[address]AI: 10/22/2018 Secondary Mar E OHIP Practices Insurance:Summa ReedDOB: Repository [facility] Number: [id number] [address] Date: - [address], 7592-27-11[place] [address]Krw: Name:O Box ~(3 477[place], [place] 30 () [address]KX: 10/09/2018 MAR E Primary MAR E [address] [id number] [address] Insurance:[employer] C[employer] REEDDOB: Community [address], MEDICAREPolicy [id number] [address]Opz: Number: Repository [id number] (HP) Date:0214-66-98SG [address] [place] [address]FR: 10/09/2018 Secondary NOT GIVENUNK [place] Insurance:SELF PAY [facility] Number: Effective Repository Date:2018-10-09 10/09/2018 MAR E Primary MAR E [place] [id number] [place] Insurance:[employer] REEDDOB: [address], MEDICAREPolicy [id number] General Hospital [address]Zlu: Number: Repository [id number] (HP) Date:6537-59-68BT BOX [facility] [address]IT: 10/09/2018 Secondary NOT GIVENUNK [place] Insurance:SELF PAY [facility] Number: Effective Repository Date:2018-10-09 09/20/2018 MAR E Primary MAR E Gray [id number] M[place] Insurance:[employer] REEDDOB: Community [address], MEDICAREPolicy [id number] General Hospital [address]Mtc: Number: Repository [id number] (HP) Date:1912-80-21XL [address] [facility] [place] [address]SX: 09/20/2018 Secondary NOT GIVENUNK [place] Insurance:SELF PAY [facility] Number: Effective Repository Date:2018-09-17 09/14/2018 MAR E Primary MAR E Gray [id number] [place] Insurance:[employer] REEDDOB: Community [address], MEDICAREPolicy [id number] General Hospital [address]Gaf: Number: Repository [id number] (HP) Date:5063-33-74YQ BOX [facility] [address]AB: 09/14/2018 Secondary NOT GIVENUNK [place] Insurance:SELF PAY [facility] Number: Effective Repository Date:2018-09-03 09/11/2018 MAR E Primary MAR E [place] [id number] MURRAY Insurance:[employer] REEDDOB: Community [address] MEDICAREPolicy [id number] Number: Repository [id number]: 330 [id number] [phone] (HP) Date:4190-05-59DO [address] [facility] [address]CW: 09/11/2018 Secondary NOT GIVENUNK [place] Insurance:SELF PAY [facility] Number: Effective Repository Date:2018-06-12 03/31/2018 MAR E Primary MAR E Gray [id number] [place] Insurance:[employer] REEDDOB: Community [address] MEDICAREPolicy [id number] Number: Repository [id number]: 330 [id number] [phone] (HP) Date:8574-55-67[address] [address]KY: 03/31/2018 Secondary NOT GIVENUNK [place] Insurance:SELF PAY [facility] Number: Effective Repository Date:2018-03-31 03/31/2018 MAR E Primary MAR E [place] [id number] MURRAY Insurance:[employer] REEDDOB: Community [address] MEDICAREPolicy [id number] Number: Repository [address]Tjq: 330 [id number] [phone] (HP) Date:2869-01-70DA [address] [place] [address]JQ: 03/31/2018 Secondary NOT GIVENUNK [place] Insurance:SELF PAY [facility] Number: Effective Repository Date:2018-03-31 02/28/2018 MAR E Primary MAR E [place] [id number] MURRAY Insurance:[employer] REEDDOB: Community [address] MEDICAREPolicy [id number] Number: Repository [id number]: 330 [id number] [phone] (HP) Date:6413-76-77[address] [address]JB: 02/28/2018 Secondary NOT GIVENUNK [place] Insurance:SELF PAY [facility] Number: Effective Repository Date:2018-02-28 02/20/2018 Mar E Primary Mar E [place] [id number] [address] Insurance:[employer] C[employer] ReedDOB: [address], MEDICAREPolicy [id number] General Hospital [address]Uju: Number: Repository [id number] (HP) Date:8546-58-35LK [address] [address]DG: 02/20/2018 Secondary NOT GIVENUNK [place] Insurance:SELF PAY [facility] Number: Effective Repository Date:2018-02-20 02/09/2018 Mar E Primary Mar E [place] [id number] [address] Insurance:[employer] C[employer] ReedDOB: [address], MEDICAREPolicy [id number] General Hospital [address]Uwf: Number: Repository [id number] (HP) Date:6600-12-07[address] [address]OJ: 02/09/2018 Secondary NOT GIVENUNK [place] Insurance:SELF PAY [facility] Number: Effective Repository Date:2018-02-09 02/09/2018 Mar E Primary Mar E [place] [id number] [address] Insurance:[employer] ReedDOB: [address], MEDICAREPolicy [id number] General Hospital [address]Vyk: Number: Repository [id number] (HP) Date:6297-50-87KU [address] [facility] [address]HB: 02/09/2018 Secondary NOT GIVENUNK [place] Insurance:SELF PAY [facility] Number: Effective Repository Date:2018-02-09 01/26/2018 Mar E Primary Mar E [place] [id number] [address] Insurance:SUM[employer] CARE ReedD[facility], MEDICAREPolicy [id number] General Hospital [address]Nmn: Number: Repository [id number] (HP) Date:7160-08-68CQ BOX [facility] CenterUniqueWIXIANGsk[place], [place] [address]TM: 01/26/2018 Secondary NOT GIVENUNK [place] Insurance:SELF PAY [facility] Number: Effective Repository Date:2018-01-26 01/26/2018 Mar E Primary Mar E [place] [id number] [address] Insurance:[employer] ReedDOB: [address] [facility], MEDICAREPolicy [id number] General Hospital [address]Nzq: Number: Repository [id number] (HP) Date:9347-50-93TV [address] [place] [address]DR: 01/26/2018 Secondary NOT GIVENUNK [place] Insurance:SELF PAY [facility] Number: Effective Repository Date:2018-01-26 SOCIAL HISTORY SOCIAL HISTORY No Social History Records FoundFAMILY HISTORY FAMILY HISTORY No Family History Records FoundADVANCE DIRECTIVES ADVANCE DIRECTIVES No Advanced Directives Records FoundINFORMATION SOURCE INFORMATION SOURCE DATE CREATED AUTHOR AUTHOR'S ORGANIZATION 10/24/2018 LEW
== END ==
PROVIDERS: Family Provider Nurse Practitioner; PCP Nurse Practitioner; Referring Provider Nurse Practitioner; Visit Provider Nurse Practitioner
DX: Z12.31 Encounter for screening mammogram for malignant neoplasm of breast (principal); Z78.0 Asymptomatic menopausal state
CPT/HCPCS: 77063; 77067

== ENCOUNTER → 2018-09-20 13:26 | Outpatient (CLI) | payer MEDICARE, SELFPAY ==
--- NOTE | 2018-09-20 13:28 | US_ITS ---
STUDY: ULTRASOUND BREAST - LEFT REASON FOR EXAM: Female, 82 years old. Abnormal screening mammogram. TECHNIQUE: Axial and longitudinal images of the LEFT breast were performed with a high resolution ultrasound transducer. COMPARISON: Comparison is made with prior mammogram dated September 14, 2018. FINDINGS: LEFT Breast: The mammographic abnormality corresponds to 2 cysts. There is an 8mm by 8mm by 8 mm cyst at the 12:00 position of the breast at 2 cm from nipple. A similar appearing cyst measuring 8 mm x 8 mm x 5 mm is seen at the 3:00 position breast at 1 cm from nipple. US/Breast Limited Unilateral IMPRESSION: The mammographic abnormality corresponds to 2 small cysts. Routine mammographic follow-up is recommended. ASSESSMENT CATEGORY: BIRADS Category 2: Benign. A letter regarding these results will be sent to the patient by the facility within 30 days. Electronically Signed: Rogelio Joseph MD at 15:46 EST Tel [phone], Service support ,
== END ==
PROVIDERS: Family Provider Nurse Practitioner; PCP Nurse Practitioner; Referring Provider Nurse Practitioner; Visit Provider Nurse Practitioner
DX: R92.8 Other abnormal and inconclusive findings on diagnostic imaging of breast (principal)
CPT/HCPCS: 76642

== ENCOUNTER → 2018-10-09 12:30 | Outpatient (CLI) | payer MEDICARE, SELFPAY ==
[2018-03-31 08:19] VITALS: BMI 27.3
--- NOTE | 2018-10-09 12:35 | RAD_ITS ---
HISTORY: Hip pain COMPARISON: CT abdomen and pelvis 12/12/16. FINDINGS: # of images incl. paperwork: 3 2 view right hip, one view pelvis. SOFT TISSUES: No acute findings. Incidental surgical clips just above both superior pubic rami. BONES: No acute fracture or subluxation. No sclerotic or destructive changes observed. JOINTS: Degenerative changes are noted. Left scoliosis lumbar spine partially visible. RAD/HIP, UNI W/ Pelvis 2-3 Views IMPRESSION: Degenerative changes. No acute fracture or dislocation. at 1342 Reported and signed by: Nehemiah Roberto MD Electronically Signed: Nehemiah Roberto, at 13:41 EST Tel , Service support ,
== END ==
PROVIDERS: Family Provider Nurse Practitioner; PCP Nurse Practitioner; Referring Provider Nurse Practitioner; Visit Provider Nurse Practitioner
DX: M25.552 Pain in left hip (principal)
CPT/HCPCS: 73502

== ENCOUNTER 2018-12-22 15:45 | Emergency (ER) | payer MEDICARE, SELFPAY ==
[2018-12-22 15:45] VITALS: BP 147/58; PULSE 74; RESP 16; TEMP 36.9; O2SAT 96; BMI 26.4
--- NOTE | 2018-12-22 16:06 | ED.DCSUM_ITS ---
- ER Visit Summary Date of Service: 12/22/18 Chief Complaint: Possible UTI History of Present Illness: The patient is a 83 F who reports feeling like she has had a UTI this past week. She has dysuria and frequency. She was seen by her PCP and urine did not show infection. Patient states she had cold-like symptoms and has been taking jwjv-hiu-pdaeyrm cold medicine. She states she has not been able to urinate much, but is going frequently. She has mild right low back pain. She went to urgent care and was sent to the emergency room. Physical Examination: Vital signs unremarkable. Patient sitting upright in bed no acute distress. Heart is regular rate and rhythm. Lung sounds are clear. Abdomen is soft with mild superpubic tenderness. I do not palpate a full bladder. There is no rebound or guarding. Back examination was no true CVA tenderness. She has mild tenderness in the right low lumbar paraspinal muscles. Skin examination was no rash or lesions. Test Results: Urinalysis does show 500 leukocyte esterase with 10-25 white cells. I do not see bacteria however. Emergency Department Course and Treatment: Patient currently has signs and symptoms of UTI with frequency and dysuria. This feels like her prior UTIs. Postvoid bladder scan was performed and revealed only 27 cc of urine. At this time urine culture will be sent. She will be treated with Macrobid. Treatment Plan: [] Disposition: Discharge Impression: Cystitis This note was generated with [employer] dictation software. It may contain incorrect words, spelling, and punctuation that were not noted in review of the chart prior to signing ED Disposition - Plan for ED Patient: Referrals: Nguyen Santana, ARPITA-C [Primary Care Provider] -
[2018-12-22 16:07] VITALS: BP 130/93; PULSE 72; O2SAT 97
[2018-12-22 16:08] LABS: Bacteria 0 SEEN /hpf (None Seen); Mucous, Urine 0 SEEN /hpf (<or=2+); Red Blood Cells-Urine 0 SEEN /hpf (0-5)
[2018-12-22 16:13] LABS: Color, Urine Yellow (Yellow); Glucose, Dipstick Normal (Normal); Ketone-Dipstick Negative (Negative); Leukocyte Esterase-Dipstick 500 /ul (Negative); Nitrite-Dipstick Negative (Negative); Occult Blood-Urine 25 /ul (Negative); Protein-Dipstick Negative (Negative); Urine Bilirubin Dipstick Negative (Negative); Urine Clarity Sl. Cloudy (Clear); Urine Urobilinogen Normal (Normal)
[2018-12-22 16:23] LABS: Renal Epithelial Cells 0-5 SEEN /hpf (0-5); Squamous Epithelial Cells - UA 0-5 SEEN /hpf (5-10); White Blood Cells 10-25 SEEN /hpf (0-5)
--- NOTE | 2018-12-22 17:20 | ED.DEP ---
ED Disposition - Plan for ED Patient: Disposition: Home or Assisted Living Instructions: ED UTI Cystitis Female Prescriptions: Nitrofurantoin Macrocrystals [Macrobid] 100 mg PO Q12 #10 capsule Referrals: Nguyen Santana NP-C [Primary Care Provider] - Keep Jonn appointment
[2018-12-22] MEDS: Nitrofurantoin Macrocrystals 100 MG Capsule PO (17:36)
[2018-12-22 17:39] VITALS: BP 130/56; RESP 18; O2SAT 98
== END 2018-12-22 17:41 | disposition home or self-care (01) ==
PROVIDERS: Emergency Provider Emergency Medicine; Family Provider Nurse Practitioner; PCP Nurse Practitioner
DX: N30.90 Cystitis, unspecified without hematuria (principal); I10 Essential (primary) hypertension; J45.909 Unspecified asthma, uncomplicated; Z79.82 Long term (current) use of aspirin; Z79.899 Other long term (current) drug therapy; Z87.440 Personal history of urinary (tract) infections
CPT/HCPCS: 81001; 87077; 87086; 87088; 87186; 99283

== ENCOUNTER 2019-02-06 16:46 | Emergency (ER) | payer MEDICARE, SELFPAY ==
[2019-02-06 16:47] VITALS: BP 139/66; PULSE 61; RESP 16; TEMP 36.4; O2SAT 98; BMI 25.4
--- NOTE | 2019-02-06 16:58 | CT_ITS ---
STUDY: CT CERVICAL SPINE WITHOUT CONTRAST REASON FOR EXAM: Female, 83 years old. Fall. Trauma to head and face. RADIATION DOSAGE (If Supplied By Facility): CTDIvol = ( 22.16 ) mGy, DLP = ( 516.05 ) mGycm TECHNIQUE: High resolution transaxial imaging was performed without contrast material. Sagittal and coronal images were reconstructed. Individualized dose optimization techniques were used for this CT. COMPARISON: CT of the cervical spine, October 18, 2014. FINDINGS: Normal craniovertebral junction. There are degenerative changes of the anterior atlantoaxial articulation. Normal odontoid process. There is mild flattening of the cervical lordosis optimally due to the presence of a cervical collar. Normal vertebral bodies and posterior osseous elements. C2-3: Normal endplates. Normal disc height and morphology. Normal central canal and intervertebral neuroforamina. C3-4: Normal endplates. Normal disc height and morphology. Is mild left-sided facet joint degenerative change. Normal central canal and intervertebral neuroforamina. C4-5: Loss of disc height with endplate spondylosis. Facet and uncovertebral joint degenerative change. Normal central canal and intervertebral neuroforamina. C5-6: Loss of disc height with endplate spondylosis. There is facet joint degenerative change. Normal central canal and intervertebral neuroforamina. C6-7: Also disc height with minimal endplate spondylosis. Facet joint degenerative change.. Normal central canal and intervertebral neuroforamina. C7-T1: Normal endplates. Normal disc height and morphology. Normal central canal and intervertebral neuroforamina. There are calcifications in the bilateral carotid bifurcations. CT/Spine Cervical without Contras IMPRESSION: Degenerative changes of the cervical spine without visualized fracture or dislocation. There is slight progression of degenerative changes when compared to prior CT. Note: MRI is more sensitive than CT in detecting cord injury, ligamentous injury and epidural hematoma. If there is continued clinical concern for any of these entities, MRI should be considered. Electronically Signed: Yannick Sears DO at 17:41 EDT Tel [phone], Service support ,
--- NOTE | 2019-02-06 16:58 | CT_ITS ---
STUDY: CT BRAIN WITHOUT CONTRAST REASON FOR EXAM: Female, 83 years old. Trauma RADIATION DOSAGE (If Supplied By Facility): DLP = ( 22.16 ) mGycm TECHNIQUE: Transaxial CT imaging of the brain was performed without administration of intravenous contrast material. Individualized dose optimization techniques were used for this CT. COMPARISON: CT brain October 18, 2014 FINDINGS: There is a left supraorbital scalp hematoma. There is no acute bleed or infarct. There are chronic ischemic and atrophic changes. The ventricles are normal in configuration. There is no hydrocephalus. The visualized paranasal sinuses are clear. The mastoid air cells are well aerated. There is no skull fracture. CT/Brain/Head without Contrast IMPRESSION: No acute intracranial abnormality. Chronic ischemic and atrophic changes. Left supraorbital scalp hematoma. Electronically Signed: Lexx Acosta, at 17:45 EDT Tel , Service support ,
--- NOTE | 2019-02-06 17:01 | ED.VISSUMM ---
- ER Visit Summary Date of Service: 02/06/19 Chief Complaint: Fall History of Present Illness: The patient is a 83 F presenting after fall. Patient states she tripped on concrete in her driveway. She fell forward hitting her face. She was able to ambulate after being helped up. She denies loss of consciousness. No amnesia. No vomiting. She is not on anticoagulants. She complains of head, neck, right knee pain. Last tetanus is unknown. Physical Examination: Vitals are stable. Patient is afebrile. Alert no acute distress. HEENT exam left forehead hematoma. PERRL, EOMI. No pain with extraocular movements. Midface is stable. Abrasion to nose. No septal hematoma. Neck is supple. Mild diffuse tenderness with no step-off Lungs are clear and equal bilaterally. Heart is regular rate and rhythm. Abdomen is soft nontender nondistended. Extremities right anterior knee tenderness with mild abrasion. Active full range of motion. Skin is warm and dry. No focal neurologic deficit. Remainder of exam is unremarkable. Emergency Department Course and Treatment: Patient was given Adacel IM, Tylenol. CT head shows no acute intracranial abnormality. Left supraorbital scalp hematoma. CT C-spine shows degenerative changes of the cervical spine without visualized fracture or dislocation. There is slight progression of degenerative changes when compared to prior CT. Right knee xray shows degenerative changes knee without acute fracture or dislocation. Abrasions were cleaned and bacitracin was applied. She is able to ambulate. Advised to follow-up with primary care physician. Advised return to ED if worsening complaints. Disposition: Discharge home Impression: Status post mechanical fall, closed head injury, facial abrasion This note was generated with [employer] dictation software. It may contain incorrect words, spelling, and punctuation that were not noted in review of the chart prior to signing ED Disposition - Plan for ED Patient: Instructions: ED Mechanical Fall Referrals: Nguyen Santana, ARPITA-C [Primary Care Provider] -
[2019-02-06] MEDS: Acetaminophen 325 MG Tablet 650 MG PO (17:08)
[2019-02-06] MEDS: Diphth,Pertuss(Acell),Tet Vac 0.5 ML Vial IM (17:09)
--- NOTE | 2019-02-06 17:25 | RAD_ITS ---
STUDY: X-RAY - RIGHT KNEE REASON FOR EXAM: Female, 83 years old. Right knee pain after fall. TECHNIQUE: 4 view(s) of the knee. COMPARISON: None. FINDINGS: There is no acute fracture or dislocation of the visualized distal femur, proximal tibia or proximal fibula. Normal proximal tibiofibular articulation. There is mild degenerative arthrosis of the medial femorotibial compartment. There is a defect in the articular surface of the medial femoral condyle suggesting osteochondral defect. Normal lateral femorotibial compartment. There is mild degenerative arthrosis of the patellofemoral articulation. There is no demonstrated joint effusion. The soft tissue structures are unremarkable. RAD/Knee 4 or More Views IMPRESSION: 1. Degenerative changes knee without acute fracture or dislocation. 2. Osteochondral defect in the medial femoral condyle. Electronically Signed: Yannick Sears DO at 17:43 EDT Tel [phone], Service support ,
--- NOTE | 2019-02-06 18:10 | ED.DEP ---
ED Disposition - Plan for ED Patient: Instructions: ED Mechanical Fall Referrals: Nguyen Santana, ARPITA-C [Primary Care Provider] -
[2019-02-06 18:41] VITALS: BP 166/76; PULSE 55; RESP 17
== END 2019-02-06 18:43 | disposition home or self-care (01) ==
PROVIDERS: Emergency Provider Emergency Medicine; Family Provider Nurse Practitioner; PCP Nurse Practitioner
DX: S00.03XA Contusion of scalp, initial encounter (principal); S00.83XA Contusion of other part of head, initial encounter; S00.31XA Abrasion of nose, initial encounter; M25.561 Pain in right knee; M54.2 Cervicalgia; W18.09XA Striking against other object with subsequent fall, initial encounter; Y93.9 Activity, unspecified; Y92.008 Other place in unspecified non-institutional (private) residence as the place of occurrence of the external cause; Y99.9 Unspecified external cause status; I10 Essential (primary) hypertension; F32.9 Major depressive disorder, single episode, unspecified; Z79.82 Long term (current) use of aspirin; Z79.899 Other long term (current) drug therapy
CPT/HCPCS: 70450; 72125; 73564; 90715; 99282

== ENCOUNTER → 2019-04-01 15:54 | Outpatient (CLI) | payer MEDICARE, SELFPAY ==
[2019-03-25 12:53] VITALS: BMI 25.9
--- NOTE | 2019-04-01 15:58 | RAD_ITS ---
STUDY: X-RAY - LEFT WRIST REASON FOR EXAM: Female, 83 years old. Pain. TECHNIQUE: 3 view(s) of the wrist were obtained. COMPARISON: None. FINDINGS: Normal visualized distal radius and ulna. Normal radiocarpal articulation. Normal distal radioulnar articulation. Normal carpal bones. Normal carpal articulations. Normal carpometacarpal articulation of the thumb. Normal second through fifth carpometacarpal articulations. Normal visualized metacarpal bones. The soft tissue structures are unremarkable. There is no demonstrated acute fracture. RAD/Wrist min 3 Views IMPRESSION: Normal x-ray examination of the wrist. Electronically Signed: Chris Gonzalez MD at 16:19 EDT , Service support ,
== END ==
PROVIDERS: Family Provider Nurse Practitioner; PCP Nurse Practitioner; Referring Provider Nurse Practitioner; Visit Provider Nurse Practitioner
DX: M25.532 Pain in left wrist (principal)
CPT/HCPCS: 73110

== ENCOUNTER → 2019-04-10 14:25 | Outpatient (CLI) | payer MEDICARE, SELFPAY ==
[2019-04-10 10:12] VITALS: BMI 25.9
== END ==
PROVIDERS: Family Provider Nurse Practitioner; PCP Nurse Practitioner; Referring Provider Physician Assistant; Visit Provider Physician Assistant
DX: R30.0 Dysuria (principal)
CPT/HCPCS: 87086; 87088

== ENCOUNTER → 2019-04-17 13:35 | Outpatient (CLI) | payer MEDICARE, SELFPAY ==
[2019-02-18 13:23] VITALS: BMI 26.2
[2019-04-10 10:12] VITALS: BMI 25.9
--- NOTE | 2019-04-17 14:34 | NEURO ---
NCS and/or EMG Patient Report Ordering Doctor: Nguyen Santana DATE OF SERVICE: 04/17/19 Gayatri Oseguera is a 83-year-old female presents for electrodiagnostic testing of the left upper limb. She reports numbness and tingling in the left hand and arm since a fall in January 2019. Electrodiagnostic findings: Left median motor nerve demonstrates prolonged distal latency with normal amplitude and conduction velocity. Left ulnar motor responses within normal limits. Normal left median and ulnar F-wave. Prolonged left median sensory latency at the wrist. Prolonged left median palmar latency. On needle EMG, all muscles tested in the left upper limb showed no evidence of denervation with normal motor unit action potentials. Electrodiagnostic impression: This is an abnormal study in the left upper limb. 1. Electrodiagnostic findings demonstrate left-sided median mononeuropathy. This is consistent with a mild to moderate left carpal tunnel syndrome. If there are any further questions, please do not hesitate to contact me.
== END ==
PROVIDERS: Family Provider Nurse Practitioner; PCP Nurse Practitioner; Referring Provider Nurse Practitioner; Visit Provider Nurse Practitioner
DX: G56.02 Carpal tunnel syndrome, left upper limb (principal)
CPT/HCPCS: 95886; 95910

== ENCOUNTER → 2019-05-08 13:00 | Outpatient (CLI) | payer MEDICARE, SELFPAY ==
[2019-04-10 10:12] VITALS: BMI 25.9
--- NOTE | 2019-05-08 13:05 | MRI_ITS ---
STUDY: MRI LEFT SHOULDER REASON FOR EXAM: Left shoulder pain, dislocation in 2016. TECHNIQUE: Standardized fat and water weighted pulse sequences were obtained in all 3 orthogonal planes. COMPARISON: MRI images 09/22/2016, radiographs 09/08/2016. FINDINGS: There is a full-thickness tear of the supraspinatus tendon retracted approximately 3.5 cm the level of the glenohumeral joint and now extending into the infraspinatus tendon (T2 coronal images 9-16). There is a full-thickness tear of the subscapularis tendon (T2 axial images 9-11). Normal teres minor tendon. There is atrophy with fat replacement of the supraspinatus, infraspinatus and subscapularis muscles (T2 axial images 5-14). Normal teres minor muscle. There is a small glenohumeral joint effusion. There is superior migration of the humeral head secondary to the retracted rotator cuff tear. There is chronic tear with nonvisualization of the intracapsular long biceps tendon. There is a small tear of the superior aspect of the posterior labrum (T2 axial image 6). Normal capsulo- ligamentous complex. There is acromioclavicular arthrosis without substantial undersurface osteophytes (T2 coronal image 11). There is a Type II morphology (curved), with a neutral orientation. There is no subacromial-subdeltoid bursal fluid. Normal visualized coracohumeral and coracoacromial ligaments. There is an axillary lymph node with fat replacement (T2 sagittal image 15). Normal deltoid muscle. Normal trapezius muscle. MRI/Upper Ext Joint Only(Routine) IMPRESSION: Full-thickness tear of the supraspinatus, infraspinatus and subscapularis tendons. Atrophy of the supraspinatus, infraspinatus and subscapularis muscles. 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 Small tear of the posterior labrum. Acromioclavicular arthrosis. Small glenohumeral joint effusion. Electronically Signed: Kaleb Rocha MD at 14:42 EDT Tel , Service support ,
== END ==
PROVIDERS: Family Provider Nurse Practitioner; PCP Nurse Practitioner; Referring Provider Nurse Practitioner; Visit Provider Nurse Practitioner
DX: M25.512 Pain in left shoulder (principal)
CPT/HCPCS: 73221

== ENCOUNTER → 2019-07-27 14:22 | Outpatient (CLI) | payer MEDICARE, SELFPAY ==
[2019-07-27 08:48] VITALS: BMI 26.5
[2019-07-27 14:24] LABS: Mucous, Urine 0 SEEN /hpf (<or=2+)
[2019-07-27 14:32] LABS: Color, Urine Yellow (Yellow); Glucose, Dipstick Normal (Normal); Ketone-Dipstick Negative (Negative); Leukocyte Esterase-Dipstick 500 /ul (Negative); Nitrite-Dipstick Negative (Negative); Occult Blood-Urine 250 /ul (Negative); Protein-Dipstick 15 mg/dl (Negative); Urine Bilirubin Dipstick Negative (Negative); Urine Clarity Sl. Cloudy (Clear); Urine Urobilinogen Normal (Normal); Urine pH 6.5 (5.0 - 8.0)
[2019-07-27 14:38] LABS: Bacteria 1+ /hpf (None Seen); Red Blood Cells-Urine 0-5 SEEN /hpf (0-5); Squamous Epithelial Cells - UA 0-5 SEEN /hpf (5-10); White Blood Cells 5-10 SEEN /hpf (0-5)
== END ==
PROVIDERS: Family Provider Nurse Practitioner; PCP Nurse Practitioner; Referring Provider Physician Assistant Surgical; Visit Provider Physician Assistant Surgical
DX: R10.9 Unspecified abdominal pain (principal); R30.0 Dysuria
CPT/HCPCS: 81001; 87077; 87086; 87088; 87186

== ENCOUNTER → 2019-09-16 12:57 | Outpatient (CLI) | payer MEDICARE, SELFPAY ==
[2019-07-27 08:48] VITALS: BMI 26.5
--- NOTE | 2019-09-16 13:04 | BI_ITS ---
MAMMOGRAPHY - BILATERAL SCREENING REASON FOR EXAM: Female, 83 years old. Routine annual screening examination. PERTINENT HISTORY: Non-contributory. Remote right excisional and stereotactic breast biopsies. Occasional right breast soreness. TECHNIQUE: Digital bilateral breast rosangela (3D mammographic acquisition) in the CC and MLO projections. 2-D mediolateral oblique (MLO) and craniocaudad (CC) views of both breasts were obtained. CAD: Full Field Digital Mammography with Computer Added Detection was performed. COMPARISON: Comparison is made with prior mammogram dated September 14, 2018 and August 13, 2014. FINDINGS: Breast Composition: The breasts are almost entirely fatty. Stable 1.1 cm x 1 sign well-defined nodule in the retroareolar region of the left breast. Posterior and lateral, there is another well-defined nodule measuring 1 cm x 0.8 cm. Prior sonogram of the left breast demonstrated these to be cysts. No other significant abnormalities are identified. There has been no significant change since the prior study. BI/SCREEN MAMM (CAD) W/ROSANGELA BILAT IMPRESSION: Stable bilateral screening mammogram. Yearly follow-up mammogram recommended. (A) ASSESSMENT CATEGORY: BIRADS Category 2: Benign. A letter regarding these results will be sent to the patient by the facility within 30 days. Approximately 10% of breast cancers are not detected by mammography. A normal mammogram should not delay biopsy of a clinically suspicious abnormality. [id number] Electronically Signed: Rogelio Joseph, at 14:41 EST , Service support ,
== END ==
PROVIDERS: Family Provider Nurse Practitioner; PCP Nurse Practitioner; Referring Provider Nurse Practitioner; Visit Provider Nurse Practitioner
DX: Z12.31 Encounter for screening mammogram for malignant neoplasm of breast (principal)
CPT/HCPCS: 77063; 77067

== ENCOUNTER → 2019-10-12 14:40 | Outpatient (CLI) | payer MEDICARE, SELFPAY ==
[2019-10-11 15:36] VITALS: BMI 26.5
[2019-10-12 14:44] LABS: Bacteria 0 SEEN /hpf (None Seen); Mucous, Urine 0 SEEN /hpf (<or=2+); Red Blood Cells-Urine 0 SEEN /hpf (0-5); Squamous Epithelial Cells - UA 0 SEEN /hpf (5-10)
[2019-10-12 14:48] LABS: Color, Urine Yellow (Yellow); Glucose, Dipstick Normal (Normal); Ketone-Dipstick Negative (Negative); Leukocyte Esterase-Dipstick 500 /ul (Negative); Nitrite-Dipstick Negative (Negative); Occult Blood-Urine 250 /ul (Negative); Protein-Dipstick Negative (Negative); Specific Gravity, Urine 1.005 (1.002-1.030); Urine Bilirubin Dipstick Negative (Negative); Urine Clarity Clear (Clear); Urine Urobilinogen Normal (Normal)
[2019-10-12 15:01] LABS: White Blood Cells 10-25 SEEN /hpf (0-5)
== END ==
PROVIDERS: Family Provider Nurse Practitioner; PCP Nurse Practitioner; Referring Provider Physician Assistant Surgical; Visit Provider Physician Assistant Surgical
DX: N39.0 Urinary tract infection, site not specified (principal); R10.9 Unspecified abdominal pain; R30.0 Dysuria
CPT/HCPCS: 81001; 87077; 87086; 87088; 87186

== ENCOUNTER → 2020-03-03 13:23 | Outpatient (CLI) | payer MEDICARE, SELFPAY ==
[2019-10-11 15:36] VITALS: BMI 26.5
--- NOTE | 2020-03-03 13:23 | ECHOD_ITS ---
Reason For Study: Murmur Procedure This was a 2D Doppler, Color Flow transthoracic echocardiogram. The study was technically difficult. Exam performed in department. Left Ventricle Normal LV size. Left ventricular systolic function is normal. The estimated ejection fraction is 60 %. There is evidence of diastolic dysfunction. No regional wall motion abnormalities noted. Right Ventricle Normal RV size. Normal systolic function. Atria The left atrium is mildly enlarged. Normal right atrium. No doppler evidence for ASD. Mitral Valve There is no mitral annular calcification. Normal mitral valve. Mild (1+) mitral valve insufficiency. Tricuspid Valve Normal tricuspid valve. Trivial tricuspid valve insufficiency. Right ventricular systolic pressure estimated to be 26 mmHg. Aortic Valve Trisinus/trileaflet aortic valve. Normal aortic valve. Pulmonic Valve The pulmonic valve is not well visualized. Great Vessels Normal sized aortic root. Pericardium/Pleural No pericardial effusion. MMode/2D Measurements & Calculations LVIDd: 3.9 cm IVSd: 1.1 cm Ao root diam: 3.0 cm LVIDs: 2.3 cm LVPWd: 1.3 cm LA dimension: 3.7 cm RVDd: 3.6 cm FS: 41.4 % LAV(MOD-bp): 59.7 ml LA A4 area: 19.2 cm2 RA A4 area: 10.9 cm2 LAV(MOD-bp) Indexed: 37.7 ml/m2 LAV(MOD-sp2): 56.8 ml LAV(MOD-sp4): 58.9 ml Time Measurements MV dec time: 0.25 sec Doppler Measurements & Calculations MV E max bryce: 84.1 cm/sec Lat Peak E' Bryce: 5.6 cm/sec Med Peak E' Bryce: 6.4 cm/sec MV A max bryce: 98.7 cm/sec E/E' lat: 15.2 E/E' med: 13.2 MV E/A: 0.85 MV V2 max: 108.8 cm/sec MV P1/2t max bryce: 99.2 cm/sec Ao V2 max: 124.1 cm/sec MV max P.7 mmHg MV P1/2t: 101.7 msec Ao max P.2 mmHg MV V2 mean: 56.1 cm/sec MV dec slope: 285.7 cm/sec2 MV mean P.5 mmHg MVA(P1/2t): 2.2 cm2 MV V2 VTI: 43.4 cm LV V1 max: 97.1 cm/sec PA V2 max: 81.9 cm/sec TR max bryce: 242.0 cm/sec LV V1 max P.8 mmHg TR max P.4 mmHg Interpretation Summary The study was technically difficult. Left ventricular systolic function is normal. The estimated ejection fraction is 60 %. The left atrium is mildly enlarged. Mild (1+) mitral valve insufficiency. Trivial tricuspid valve insufficiency. Right ventricular systolic pressure estimated to be 26 mmHg. There is evidence of diastolic dysfunction. Ordering Physician: Romel Silverio Referring Physician: Romel Silverio Performed By: Vincenzo oMntana RCS
== END ==
PROVIDERS: PCP Nurse Practitioner; Referring Provider Internal Medicine Cardiovascular Disease; Visit Provider Internal Medicine Cardiovascular Disease
DX: I34.0 Nonrheumatic mitral (valve) insufficiency (principal)
CPT/HCPCS: 93306

== ENCOUNTER 2020-05-20 13:16 | Emergency (ER) | payer MEDICARE, SELFPAY ==
[2020-03-20 14:43] VITALS: BMI 26.2
[2020-05-20 13:16] VITALS: BP 143/65; PULSE 53; RESP 16; TEMP 36.7; O2SAT 98; BMI 26.6
--- NOTE | 2020-05-20 14:31 | RAD_ITS ---
STUDY: X-RAY - RIGHT WRIST REASON FOR EXAM: Female, 84 years old. Fall. Pain. TECHNIQUE: 3 view(s) of the wrist were obtained. COMPARISON: None. FINDINGS: There is no evidence of fracture or dislocation. There are mild degenerative changes in the radiocarpal joint. There are no radiodense foreign bodies. RAD/Wrist min 3 Views IMPRESSION: No fracture or dislocation in the right wrist. Mild degenerative change. Electronically Signed: Austen Urrutia, at 15:18 EDT Tel , Service support ,
--- NOTE | 2020-05-20 14:32 | CT_ITS ---
STUDY: CT BRAIN WITHOUT CONTRAST REASON FOR EXAM: Female, 84 years old. FELL FACE FIRST ON CONCRETE, NO LOC, NO BLOOD THINNERS RADIATION DOSAGE (If Supplied By Facility): CTDIvol = ( 60.81 ) mGy, DLP = ( 998.67 ) mGycm TECHNIQUE: Transaxial CT imaging of the brain was performed without administration of intravenous contrast material. Individualized dose optimization techniques were used for this CT. COMPARISON: 02/06/2019 FINDINGS: Normal soft tissue structures. Normal calvarium. There is mild cerebral atrophy with widening of the extra-axial spaces and ventricular dilatation. There are areas of decreased attenuation within the white matter tracts of the supratentorial brain, consistent with microvascular disease changes. There are small punctate calcifications of the basal ganglia which are seen in the aging brain as a normal variant. Normal brainstem. There is mild cerebellar atrophy. There is no intracranial hemorrhage. There are no findings of an acute ischemic infarction. Normal visualized paranasal sinuses. CT/Brain/Head without Contrast IMPRESSION: Chronic involutional changes of the brain. Small vessel ischemia. Electronically Signed: Nola Bill MD at 15:10 EDT Tel , Service support ,
--- NOTE | 2020-05-20 14:32 | CT_ITS ---
STUDY: CT CERVICAL SPINE WITHOUT CONTRAST REASON FOR EXAM: Female, 84 years old. Fall RADIATION DOSAGE (If Supplied By Facility): CTDIvol = ( 16.42 ) mGy, DLP = ( 276.95 ) mGycm TECHNIQUE: High resolution transaxial imaging was performed without contrast material. Sagittal and coronal images were reconstructed. Individualized dose optimization techniques were used for this CT. COMPARISON: 02/06/19 FINDINGS: There is no evidence of fracture or dislocation in the cervical spine. The dens is intact. Alignment is normal. The vertebral body heights are well-maintained. There stable multilevel degenerative changes. The visualized paraspinal soft tissues are within normal limits. CT/Spine Cervical without Contras IMPRESSION: No fracture or dislocation in the cervical spine. Stable degenerative change. Electronically Signed: Austen Urrutia, at 15:16 EDT Tel , Service support ,
--- NOTE | 2020-05-20 14:32 | RAD_ITS ---
STUDY: X-RAY - RIGHT HAND REASON FOR EXAM: Female, 84 years old. Fall TECHNIQUE: 3 view(s) of the hand. COMPARISON: None. FINDINGS: There is no evidence of fracture or dislocation. There are mild degenerative changes in the interphalangeal joints. There are no radiodense foreign bodies. RAD/Hand Min 3 Views IMPRESSION: No fracture or dislocation in the right hand. Mild degenerative changes in the interphalangeal joints. Electronically Signed: Austen Urrutia, at 15:11 EDT Tel , Service support ,
--- NOTE | 2020-05-20 14:33 | ED.VIS.GEN ---
History of Present Illness Chief Complaint: Fall Informant: Patient, Family Narrative: 84-year-old female presents for evaluation after mechanical fall. She states she tripped on concrete at ground level after catching her shoe on the edge of the concrete. She fell forward mostly onto her right side. She complains of right hand, wrist pain. She also states that her neck hurts from the fall. She fell hitting her head on the right side. She sustained no lacerations to the head but does have a small abrasion to the right pinky and right elbow. She states that her tetanus immunization is up-to-date. She denies LOC. She was able to get up under her own strength. She was initially nauseous but this is resolved. She has no dizziness, vision change, paresthesias, abnormal gait. - Past Medical History (1) Premature atrial contractions Status: Chronic (2) Sinus bradycardia Status: Chronic (3) Urinary tract infection Status: Chronic (4) Benign hypertension Status: Chronic (5) Degenerative disc disease, cervical Status: Chronic (6) Hyperlipemia Status: Chronic (7) Left carpal tunnel syndrome Status: Chronic Past Medical History - Allergies and Home Meds Allergies/Adverse Reactions: Allergies morphine Adverse Reaction (Severe, Verified 05/20/20 13:20) Nausea/Vom/Diarrhea pravastatin [From Pravachol] Adverse Reaction (Severe, Verified 05/20/20 13:20) myalgias Sulfa (Sulfonamide Antibiotics) Adverse Reaction (Intermediate, Verified 05/20/20 13:20) Unknown Primary Care Physician: Nguyen Santana NP-C [Primary Care Provider] - Prior records reviewed: Yes Past Medical History: - - Hypertension, hyperlipidemia Surgical History: cholecystectomy, hysterectomy, - Lives: Alone Smoking Status: Never smoker Alcohol: None Drugs: None Review of Systems General: Denies: Chills, Fever, Sweats Eyes: Denies: Visual changes - bilaterally, Diplopia ENT: Denies: Rhinorrhea, Sore throat Cardiovascular: Denies: Chest pain, Palpitations Respiratory: Denies: Dyspnea, Cough Gastrointestinal: Denies: Abdominal pain Musculoskeletal: Reports: Neck pain, Extremity Pain - Right elbow, right wrist, right hand Skin: Reports: - - Superficial abrasions to the right pinky and right elbow. Contusion to right cheek.. Denies: Rash Neurological: Denies: Headache, Weakness, Parasthesia, Numbness Psych: Denies: Depression, Anxiety Physical Exam Vital Signs/Narrative: Vital Signs Temp Pulse Resp BP Pulse Ox 05/20/20 13:16 98.0 F 53 L 16 143/65 H 98 General: Well nourished, No Acute Distress Head: Normocephalic, - - Slight contusion to the right cheekbone. No deformities. Extraocular motion is preserved. No jaw malocclusion. ENT: Moist mucous membranes, No rhinorrhea Neck: - - Numbness to palpation right cervical paraspinal musculature. There is no bony deformities or step-offs. Cardiovascular: Regular rate, Regular rhythm Respiratory: No distress Back: Nontender Extremities: - - Right elbow: Mild tenderness to palpation overlying superficial abrasion. Patient has full range of motion and pronation supination, flexion, extension. No deformities noted. Right wrist numbness to palpation on the medial side. There is no deformities but there is some bruising. She is able to flex and extend right wrist. Right hand there is bruising and tenderness to palpation of the left fifth digit at the PIP joint and at the MCP. There is bruising overlying this area. There is a small superficial abrasion over the medial aspect of the MCP of the fifth digit. Diagnostic/Tx/Re-eval Clinical Impression(s) from Imaging Studies Wrist X-Ray 05/20/20 14:31 IMPRESSION: No fracture or dislocation in the right wrist. Mild degenerative change. Electronically Signed: Austen Urrutia, at 15:18 EDT Tel , Service support , Brain CT 05/20/20 14:32 IMPRESSION: Chronic involutional changes of the brain. Small vessel ischemia. Electronically Signed: Nola Bill MD at 15:10 EDT Tel , Service support , Cervical Spine CT 05/20/20 14:32 IMPRESSION: No fracture or dislocation in the cervical spine. Stable degenerative change. Electronically Signed: Austen Urrutia at 15:16 EDT Tel , Service support , Hand X-Ray 05/20/20 14:32 IMPRESSION: No fracture or dislocation in the right hand. Mild degenerative changes in the interphalangeal joints. Electronically Signed: Austen Urrutia, at 15:11 EDT Tel , Service support , - Medical Decision Making Presents for evaluation after mechanical fall hurting her right hand, wrist, striking her head on the ground. She had no LOC. She is not on blood thinners. She is able to get up her her own strength and ambulate. Not had dizziness, balance issues. She does not have a headache. The brain is negative. I do not feel she needed a CT maxillofacial given her normal shoulder examination. She had no extraocular motion entrapment. She had minimal pain here. Patient had x-ray of the right wrist and right hand which were also negative. Her superficial abrasions were cleaned and covered. She states that her tetanus immunization is up-to-date. I feel patient is stable for discharge at this time to follow-up with her PCP. Impression: 1. Mechanical fall 2. Facial contusion 3. Right hand contusion 4. Right wrist contusion ED Disposition - Plan for ED Patient: Disposition: Home or Assisted Living Instructions: ED Abrasion, ED Mechanical Fall, ED Head Injury Closed Ch, ED Sprain Strain Neck, ED Sprain Wrist Referrals: Nguyen Santana, ARPITA-C [Primary Care Provider] -
[2020-05-20 16:08] VITALS: RESP 16
--- NOTE | 2020-05-20 16:09 | ED.RN ---
REVIEWED D/C INSTRUCTIONS, FOLLOW UP CARE, AND S/S THAT WOULD WARRANT A RETURN TO THE ED WITH PT. PT VERBALIZED AN UNDERSTANDING AND DENIES FURTHER QUESTIONS FOR THIS RN. PT SKIN P/W/D, RESP EVEN AND UNLABORED, PT A&O X 3, NO DISTRESS NOTED. PT AMBULATED OUT OF ED, GAIT STEADY.
== END 2020-05-20 16:10 | disposition home or self-care (01) ==
PROVIDERS: Emergency Provider Student in an Organized Health Care Education/Training Program; PCP Nurse Practitioner
DX: S00.83XA Contusion of other part of head, initial encounter (principal); S60.221A Contusion of right hand, initial encounter; S60.211A Contusion of right wrist, initial encounter; S60.416A Abrasion of right little finger, initial encounter; S50.311A Abrasion of right elbow, initial encounter; M54.2 Cervicalgia; W01.10XA Fall on same level from slipping, tripping and stumbling with subsequent striking against unspecified object, initial encounter; Y93.9 Activity, unspecified; Y92.9 Unspecified place or not applicable; Y99.9 Unspecified external cause status; I49.1 Atrial premature depolarization; I10 Essential (primary) hypertension; E78.5 Hyperlipidemia, unspecified; M50.30 Other cervical disc degeneration, unspecified cervical region; Z79.82 Long term (current) use of aspirin; Z79.899 Other long term (current) drug therapy
CPT/HCPCS: 70450; 72125; 73110; 73130; 99282

== ENCOUNTER → 2020-12-02 | Outpatient (CLI) | payer MEDICARE, SELFPAY ==
[2020-12-02 15:35] LABS: Mucous, Urine 0 SEEN /hpf (<or=2+); Red Blood Cells-Urine 0 SEEN /hpf (0-5)
[2020-12-02 16:14] LABS: Color, Urine Yellow (Yellow); Glucose, Dipstick Normal (Normal); Ketone-Dipstick Negative (Negative); Leukocyte Esterase-Dipstick 100 /ul (Negative); Nitrite-Dipstick Negative (Negative); Occult Blood-Urine 10 /ul (Negative); Protein-Dipstick Negative (Negative); Urine Bilirubin Dipstick Negative (Negative); Urine Clarity Clear (Clear); Urine Urobilinogen Normal (Normal)
[2020-12-02 16:26] LABS: Bacteria 1+ /hpf (None Seen); Squamous Epithelial Cells - UA 0-5 SEEN /hpf (5-10); White Blood Cells 0-5 SEEN /hpf (0-5)
== END | disposition home or self-care (01) ==
LOC: LABSPEC 15:11
PROVIDERS: PCP Nurse Practitioner; Visit Provider Physician Assistant
DX: N39.0 Urinary tract infection, site not specified (principal); R30.0 Dysuria
CPT/HCPCS: 81001; 87077; 87086; 87088; 87186

== ENCOUNTER → 2020-12-04 15:57 | Outpatient (CLI) | payer MEDICARE, SELFPAY ==
--- NOTE | 2020-12-04 16:01 | CT_ITS ---
STUDY: CTA CHEST REASON FOR EXAM: Female, 85 years old. Elevated d-dimer. RADIATION DOSAGE (If Supplied By Facility): CTDIvol = ( 8.79 ) mGy, DLP = ( 307.82 ) mGycm TECHNIQUE: The examination was performed with the intravenous administration of 100 mL. Post-processing of the angiographic images was performed, with multiplanar reformation and 3D reconstruction. Individualized dose optimization techniques were used for this CT. COMPARISON: [id number] FINDINGS: Normal enhancement of the main pulmonary artery and right and left pulmonary arteries. Normal enhancement of the bilateral peripheral pulmonary arteries. There is no demonstrated pulmonary embolism. There is atherosclerotic changes are the thoracic aorta without aneurysm. There is no demonstrated aortic dissection. Normal heart and pericardium. Mild coronary artery calcifications. Nonspecific subcentimeter mediastinal lymphadenopathy. Normal hilar regions. Normal visualized trachea and bronchi. The lungs are hyper expanded, with flattening of the hemidiaphragms. Normal pulmonary parenchyma. Normal pleura. Normal chest wall structures. There are degenerative changes of thoracic spine. Question mild bilateral upper lobe renal caliectasis. The patient is status post cholecystectomy. CT/CTA Chest W/WO Contrast IMPRESSION: 1. No evidence of pulmonary embolus. 2. No aortic dissection or aneurysm. 3. Minimal atherosclerotic changes of the thoracic aorta and coronary arteries. 4. No acute pulmonary disease. A voicemail message concerning the results was left for Dr. Wiggins at 1632 on 02/03/2021. Electronically Signed: Yannick Sears DO at 16:34 EST Tel [phone], Service support ,
== END ==
PROVIDERS: PCP Nurse Practitioner; Referring Provider Nurse Practitioner; Visit Provider Nurse Practitioner
DX: R79.89 Other specified abnormal findings of blood chemistry (principal); R06.02 Shortness of breath
CPT/HCPCS: 71275; Q9967

== ENCOUNTER → 2020-12-04 | Outpatient (CLI) | payer MEDICARE, SELFPAY ==
[2020-12-04 15:08] LABS: Absolute Lymphocyte Count 1.77 X10^3/uL (0.83-4.51); Absolute Neutrophil Count 4.1 X10^3/uL (2.0-7.7); Basophil# 0.05 X10^3/uL; Basophil% 0.7 % (0-1); Eosinophil# 0.26 X10^3/uL; Eosinophils% 3.7 % (0-5); Hematocrit 41.3 % (37-47); Hemoglobin 12.7 g/dL (12.0-15.0); Lymphocyte # 1.77 X10^3/ul (4.0); Lymphocyte % 25.4 % (19-41); Mean Corp Hgb Conc 30.8 g/dL (32-36); Mean Corpuscular Hgb 28.3 pg (27.0-32.0); Mean Corpuscular Volume 92.2 fL (81-99); Mean Platelet Vol. 10.1 fl (6.2-12.0); Monocyte# 0.79 X10^3/uL; Monocyte% 11.3 % (0-10); NRBC Flagged by Analyzer 0 % (0-5); Neutrophil # 4.08 X10^3/uL (2.7-7.7); Neutrophil % 58.6 % (47-70); Platelet Count 412 K/mm3 (150-450); RBC Distribution Width CV 12.5 % (11.6-14.6); RBC Distribution Width SD 42.9 fl (35.1-43.9); Red Blood Count 4.48 M/mm3 (4.2-5.4)
[2020-12-04 15:20] LABS: ALB/GLOB Ratio 1.3 RATIO (0.9-2.4); AST(SGOT) 19 U/L (15-37); Alanine Aminotransfer ALT/SGPT 25 U/L (13-56); Albumin, Serum 3.9 g/dL (3.2-5.0); Alkaline Phosphatase 69 U/L (45-117); Anion Gap 7 (5-15); BUN 11 mg/dL (7-18); BUN/Creat Ratio 13.3 RATIO (10-20); Calcium,Total 9.4 mg/dL (8.5-10.1); Chloride 100 mmol/L (98-107); Creatinine, Serum 0.83 mg/dL (0.55-1.02); EST Glomerular Filtration Rate 70 mL/min (>60); Est Glom Filt Rate - Afr Amer 84 mL/min (>60); Globulin 2.9 g/dL (2.2-4.2); Glucose 99 mg/dL (74-106); Potassium 4.3 mmol/L (3.5-5.1); Protein, Total 6.8 g/dL (6.4-8.2); Sodium Level 138 mmol/L (136-145)
[2020-12-04 15:22] LABS: D-Dimer Quantitative (DVT/PE) 0.54 FEU/ug/m (0.27-0.49)
[2020-12-04 15:37] LABS: BNP,B-Type NATRIURETIC PEPTIDE 38.4 pg/mL (0-100)
== END | disposition home or self-care (01) ==
LOC: LABSPEC 14:54
PROVIDERS: PCP Nurse Practitioner; Visit Provider Nurse Practitioner
DX: R06.02 Shortness of breath (principal)
CPT/HCPCS: 80053; 83880; 85025; 85379

== ENCOUNTER → 2021-03-20 | Outpatient (CLI) | payer MEDICARE, SELFPAY ==
[2021-03-20 12:54] VITALS: BMI 26.6
== END | disposition home or self-care (01) ==
PROVIDERS: PCP Nurse Practitioner; Visit Provider Physician Assistant
DX: N30.00 Acute cystitis without hematuria (principal)
CPT/HCPCS: 87086; 87088

== ENCOUNTER → 2021-04-19 12:59 | Outpatient (CLI) | payer MEDICARE, SELFPAY ==
[2021-04-16 13:20] VITALS: BMI 26.4
== END ==
PROVIDERS: PCP Nurse Practitioner; Referring Provider Internal Medicine Cardiovascular Disease; Visit Provider Internal Medicine Cardiovascular Disease
DX: I49.1 Atrial premature depolarization (principal)
CPT/HCPCS: 93225; 93226

== ENCOUNTER → 2021-05-19 11:19 | Outpatient (CLI) | payer MEDICARE, SELFPAY ==
[2021-04-16 13:20] VITALS: BMI 26.4
--- NOTE | 2021-05-19 11:25 | US_ITS ---
STUDY: RENAL ULTRASOUND - COMPLETE REASON FOR EXAM: Female, 85 years old. UTI TECHNIQUE: Ultrasound evaluation of the kidneys was performed with real-time and static qiu-scale imaging. COMPARISON: None. FINDINGS: RIGHT KIDNEY: Normal location of the right kidney, which is normal in size. The right kidney measures 10.7 cm x 5.3 cm x 4.9 cm. There is a normal cortex of the right kidney. The renal cortex measures 1.4 cm. There is no right renal mass or cyst. There are no right renal calculi. There is no right hydronephrosis. DISTAL RIGHT URETER: There is non-visualization of the distal right ureter. There is no demonstrated right ureterovesical junction calculus. There is a visualized right ureteral jet. LEFT KIDNEY: Normal location of the left kidney, which is normal in size. The left kidney measures 11.3 cm x 4.3 cm x 5.1 cm. There is a normal cortex of the left kidney. The renal cortex measures 1.5 cm. There is no left renal mass or cyst. There are no left renal calculi. There is no left hydronephrosis. DISTAL LEFT URETER: There is non-visualization of the distal left ureter. There is no demonstrated left ureterovesical junction calculus. There is a visualized left ureteral jet. BLADDER: The distended urinary bladder has a volume of 316 ml. There is a normal wall thickness of the distended urinary bladder. There is no demonstrated mass within the urinary bladder. There are no demonstrated bladder calculi. US/Kidney and Bladder IMPRESSION: Normal ultrasound of the kidneys and urinary bladder. Electronically Signed: Rogelio Joseph MD at 15:00 EDT , Service support ,
== END ==
PROVIDERS: PCP Nurse Practitioner; Referring Provider Urology; Visit Provider Urology
DX: N39.0 Urinary tract infection, site not specified (principal)
CPT/HCPCS: 76770

== ENCOUNTER → 2021-07-03 | Outpatient (CLI) | payer MEDICARE, SELFPAY ==
[2021-07-03 14:59] LABS: Bacteria 0 SEEN /hpf (None Seen); Mucous, Urine 0 SEEN /hpf (<or=2+); Squamous Epithelial Cells - UA 0 SEEN /hpf (5-10); White Blood Cells 0 SEEN /hpf (0-5)
[2021-07-03 15:02] LABS: Color, Urine Red (Yellow); Glucose, Dipstick Normal (Normal); Ketone-Dipstick 5 mg/dl (Negative); Leukocyte Esterase-Dipstick 500 /ul (Negative); Nitrite-Dipstick Negative (Negative); Occult Blood-Urine 250 /ul (Negative); Protein-Dipstick 100 mg/dl (Negative); Specific Gravity, Urine 1.015 (1.002-1.030); Urine Bilirubin Dipstick Negative (Negative); Urine Clarity Cloudy (Clear); Urine Urobilinogen Normal (Normal)
[2021-07-03 15:13] LABS: Red Blood Cells-Urine > 100 SEEN /hpf (0-5)
== END | disposition home or self-care (01) ==
LOC: LABSPEC 07-05 08:37
PROVIDERS: PCP Nurse Practitioner; Referring Provider Physician Assistant Surgical; Visit Provider Physician Assistant Surgical
DX: N30.00 Acute cystitis without hematuria (principal)
CPT/HCPCS: 81001; 87086; 87088

== ENCOUNTER → 2021-08-23 11:16 | Outpatient (CLI) | payer MEDICARE, SELFPAY ==
[2021-08-23 13:02] LABS: Absolute Lymphocyte Count 1.55 X10^3/uL (0.83-4.51); Absolute Neutrophil Count 4.6 X10^3/uL (2.0-7.7); Basophil# 0.06 X10^3/uL; Basophil% 0.8 % (0-1); Eosinophil# 0.26 X10^3/uL; Eosinophils% 3.5 % (0-5); Hematocrit 38.1 % (37-47); Hemoglobin 12.1 g/dL (12.0-15.0); Lymphocyte # 1.55 X10^3/ul (0.83-4.51); Lymphocyte % 20.9 % (19-41); Mean Corp Hgb Conc 31.8 g/dL (32-36); Mean Corpuscular Hgb 28.6 pg (27.0-32.0); Mean Corpuscular Volume 90.1 fL (81-99); Mean Platelet Vol. 9.7 fl (6.2-12.0); Monocyte# 0.87 X10^3/uL; Monocyte% 11.8 % (0-10); NRBC Flagged by Analyzer 0 % (0-5); Neutrophil # 4.64 X10^3/uL (2.7-7.7); Neutrophil % 62.7 % (47-70); Platelet Count 450 K/mm3 (150-450); RBC Distribution Width CV 12.7 % (11.6-14.6); RBC Distribution Width SD 41.8 fl (35.1-43.9); Red Blood Count 4.23 M/mm3 (4.2-5.4); White Blood Count 7.4 K/mm3 (4.4-11.0)
[2021-08-23 13:07] LABS: Erythrocyte Sedimentation Rate 31 mm/hr (0-30)
[2021-08-23 13:37] LABS: Alkaline Phosphatase 73 U/L (45-117); Ferritin 191 ng/mL (8-252)
== END ==
PROVIDERS: PCP Nurse Practitioner; Visit Provider Nurse Practitioner
DX: D69.1 Qualitative platelet defects (principal)
CPT/HCPCS: 36415; 82728; 84075; 85025; 85652; 86140

== ENCOUNTER → 2021-08-31 | Outpatient (CLI) | payer MEDICARE, SELFPAY ==
[2021-08-31 17:56] LABS: Erythrocyte Sedimentation Rate 24 mm/hr (0-30)
[2021-08-31 18:02] LABS: CRP 5.09 mg/L (0.0-3.0); Ferritin 191 ng/mL (8-252)
== END | disposition home or self-care (01) ==
PROVIDERS: PCP Nurse Practitioner; Visit Provider Internal Medicine Hematology & Oncology
DX: D75.839 Thrombocytosis, unspecified (principal)
CPT/HCPCS: 82728; 85652; 86140

== ENCOUNTER 2021-10-05 09:25 | Outpatient (CLI) | payer MEDICARE, SELFPAY ==
--- NOTE | 2021-10-05 09:28 | RAD_ITS ---
STUDY: X-RAY CHEST REASON FOR EXAM: Female, 85 years old. COUGH TECHNIQUE: PA and lateral views of the chest. COMPARISON: 12/04/2020 FINDINGS: The lungs are clear and expanded. There is no demonstrated pleural abnormality. Normal size heart. Normal mediastinum and taylor. Normal visualized pulmonary arteries. Normal visualized aortic arch and descending thoracic aorta. Normal visualized thoracic spine. Normal visualized ribs, clavicles, and shoulders. There is no demonstrated abnormality of the visualized soft tissue structures of the upper abdomen. RAD/Chest PA and Lateral IMPRESSION: Normal x-ray examination of the chest. Electronically Signed: Masoud Armstrong MD at 13:22 EST Tel , Service support ,
== END 2021-10-05 23:59 | disposition short-term general hospital (02) ==
LOC: RAD 09:27
PROVIDERS: PCP Nurse Practitioner; Referring Provider Internal Medicine; Visit Provider Internal Medicine
DX: R05.9 Cough, unspecified (principal)
CPT/HCPCS: 71046

== ENCOUNTER → 2022-03-03 | Outpatient (CLI) | payer MEDICARE, SELFPAY ==
[2022-03-03 13:33] LABS: Bacteria 0 SEEN /hpf (None Seen); Mucous, Urine 0 SEEN /hpf (<or=2+); Squamous Epithelial Cells - UA 0 SEEN /hpf (5-10)
[2022-03-03 13:39] LABS: Color, Urine Red (Yellow); Glucose, Dipstick Normal (Normal); Ketone-Dipstick Negative (Negative); Leukocyte Esterase-Dipstick 500 /ul (Negative); Nitrite-Dipstick Negative (Negative); Occult Blood-Urine 250 /ul (Negative); Protein-Dipstick 100 mg/dl (Negative); Urine Bilirubin Dipstick Negative (Negative); Urine Clarity Cloudy (Clear); Urine Urobilinogen Normal (Normal)
[2022-03-03 13:45] LABS: Red Blood Cells-Urine > 100 SEEN /hpf (0-5)
[2022-03-03 13:46] LABS: White Blood Cells 25-50 SEEN /hpf (0-5)
== END | disposition home or self-care (01) ==
LOC: LABSPEC 13:10
PROVIDERS: PCP Nurse Practitioner; Visit Provider Physician Assistant
DX: R30.9 Painful micturition, unspecified (principal); N39.0 Urinary tract infection, site not specified
CPT/HCPCS: 81001; 87086; 87088

== ENCOUNTER → 2022-05-02 | Outpatient (CLI) | payer MEDICARE, SELFPAY ==
--- NOTE | 2022-05-02 16:08 | CT_ITS ---
STUDY: CT Abdomen And Pelvis W/ Contrast Injection 05/02/2022 5:04 PM REASON FOR EXAM: Female, 86 years old. Abdominal pain rectal pain, LUQ tenderness, diarrhea -- oral and IV Individualized dose optimization techniques were used for this CT. COMPARISON: 12/12/2016 TECHNIQUE: CT Abdomen And Pelvis W/ Contrast Injection Oral and IV Readi-CAT and amp;amp; 100mL Isovue-300 FINDINGS: There are atherosclerotic calcifications of visualized coronary arteries. The visualized portions of the heart are within normal limits. 23 mm hypodense lesion in the inferior right lobe of the liver. Series 2 image 50. ACR White Paper guidelines (Elba, et al. JACR 2017; 14(11):0274-5359.) suggest no follow-up is necessary. There are surgical clips in the gallbladder fossa consistent with a prior cholecystectomy. Normal spleen. Normal pancreas. Normal bilateral adrenal glands. 7 mm lesion of the posterior mid left kidney. Series 2 image 30. This is 10HOUNSFIELD units. No follow-up required. No acute findings of the right kidney. 7 mm indeterminate lesion of the superior anterior left kidney. Series 2 image 23. This is 54 HOUNSFIELD units. 7 mm indeterminate lesion of the anterior lateral left kidney. Series 2 image 37. ACR White Paper guidelines (Herts, et al. JACR 2018; 15(2):264-273) recommend MRI or CT without and with intravenous contrast. Normal visualized stomach. Normal small intestine. There are multiple colonic diverticula consistent with diverticulosis. There is non-visualization of the appendix. There are calcifications of the abdominal aorta. This is consistent for atherosclerotic disease. There is NO abdominal aortic aneurysm. Vascular workup can be obtained based on clinical correlation. Normal inferior vena cava. Subcentimeter mesenteric lymph nodes. Normal urinary bladder. There is absence of the uterus consistent with a prior hysterectomy. There is an umbilical hernia containing fat. There are diffuse degenerative changes of the visualized lumbar spine. CT/Abdomen/Pelvis WITH Contrast IMPRESSION: (NOT LISTED IN ORDER OF SIGNIFICANCE) 7 mm indeterminate lesion of the superior anterior left kidney. Series 2 image 23. This is 54 HOUNSFIELD units. 7 mm indeterminate lesion of the anterior lateral left kidney. Series 2 image 37. ACR White Paper guidelines (Hermakenzie, et al. JACR 2018; 15(2):264-273) recommend MRI or CT without and with intravenous contrast. 23 mm hypodense lesion in the inferior right lobe of the liver. Series 2 image 50. ACR White Paper guidelines (Elba, et al. JACR 2017; 14(11):8305-9318.) suggest no follow-up is necessary. Other findings as above. Electronically Signed: Philipp Moody MD at 17:12 EDT ,
[2022-05-02 16:45] LABS: CREATININE FINGERSTICK < 0.9 mg/dL (0.55-1.02); EGFR FINGERSTICK > 60.0000 mL/min (>60)
== END | disposition home or self-care (01) ==
LOC: CT 16:06
PROVIDERS: PCP Nurse Practitioner Family; Visit Provider Nurse Practitioner Adult Health
DX: R10.812 Left upper quadrant abdominal tenderness (principal); K62.89 Other specified diseases of anus and rectum; K52.9 Noninfective gastroenteritis and colitis, unspecified; G89.29 Other chronic pain
CPT/HCPCS: 74177; Q9967; A4216

== ENCOUNTER → 2022-05-12 | Outpatient (CLI) | payer MEDICARE, SELFPAY ==
--- NOTE | 2022-05-12 09:52 | STRESSREP_ITS ---
Stress Test Report Date: 05-12-2022 Procedure: Pharmacologic stress nuclear imaging study Indications: Shortness of breath/dyspnea; cardiac dysrhythmia; mitral valve disorder Consent: Per the patient Procedure: The patient underwent pharmacologic (Regadenoson 0.4mg ) evaluation with a peak heart rate of 86 beats per minute (63%predicted maximal heart rate) and a peak blood pressure of 148/60 mmHg. The baseline ECG demonstrated sinus bradycardia; poor R wave progression. The peak pharmacologic ECG demonstrated no obvious ECG changes. There were no cardiac dysrhythmias pretest, during pharmacologic infusion, or recovery. There was no complaint of chest discomfort during pharmacologic infusion and subsequent complaint of chest heaviness during recovery with spontaneous resolution to baseline. The examination was discontinued secondary to completion of protocol. Impression: 1. Pharmacologic (Regadenoson) evaluation 2. Peak pharmacologic ECG with no obvious ECG changes. 3. There were no cardiac dysrhythmias pretest, during pharmacologic infusion, or recovery. 4. Nuclear images pending Myocardial perfusion imaging study: Technique: The patient was injected with 11.6 millicuries of technetium 99m Cardiolite and subsequently rest SPECT Cardiolite nuclear imaging was obtained in the horizontal long, vertical long, and short axis views. The patient underwent pharmacologic (Regadenoson) evaluation with a peak heart rate of 86s beats per minute (63% percent predicted maximal heart rate) and a peak blood pressure of 148/60 mmHg. The patient was injected with 33.1 millicuries of technetium 99m Cardiolite and subsequently stress SPECT Cardiolite nuclear imaging was obtained in the horizontal long, vertical long, and short axis views. A gated Cardiolite study at peak stress was obtained. Interpretation: Rest and stress SPECT Cardiolite nuclear imaging status post realignment, normalization, and attenuation correction demonstrate relative uniform tracer uptake and myocardial perfusion appearing within normal limits. There is end systolic thickening and brightening. The gated Cardiolite study demonstrates myocardial thickening and inward wall motion. The reported LVEF is 79%. Impression: 1. Rest and stress SPECT Cardiolite nuclear imaging demonstrate relative uniform tracer uptake and myocardial perfusion appearing within normal limits. 2. The gated Cardiolite study reports an LVEF of 79%. This note was generated with [employer] software. It may contain incorrect words, spelling, and punctuation that were not noted in checking the note before signing.
== END | disposition home or self-care (01) ==
LOC: CVS 07:18
PROVIDERS: PCP Nurse Practitioner Family; Referring Provider Internal Medicine Cardiovascular Disease; Visit Provider Internal Medicine Cardiovascular Disease
DX: R06.09 Other forms of dyspnea (principal)
CPT/HCPCS: 78452; 93017; A9500; A4216; J2785

== ENCOUNTER 2022-08-03 09:16 | Day surgery (SDC) | payer MEDICARE, SELFPAY ==
[2022-08-03] VITALS (7 sets, daily range): BP systolic 127–167; BP diastolic 52–58; PULSE 54–78; RESP 14–16; TEMP 36.4–36.6; O2SAT 99; BMI 25.8
[2022-08-03] MEDS: Lactated Ringers 1,000 ML 15 ML IV (09:51)
--- NOTE | 2022-08-03 10:18 | PCM.HP.BLA ---
History and Physical Date of Admission: 08/03/22 MAR NAQVI, is an 86 F who presents to the office today for 6 wk f/u rectal pressure/fullness/discomfort; accompanied by her daughter We got CT abd/pel which revealed anal inflammation; I reviewed the images with Dr Anton. We prescribed compounded HC supp bid #40, pt has taken those without relief of symptoms CT also showed 7 mm indeterminate lesion left kidney, referred to urologist Dr Rousseau whom she has seen for bladder prolapse She reports a rectal pressure that began about 1 year ago and has been getting worse.? It is especially bothersome when she is doing housework or yard work.? It is a discomfort or actually a pain when the pressure is worse.? It is not related to bowel movements.? She has 1 or 2 bowel movements a day.? She had been having diarrhea until she started taking colestipol about 6 months ago; she is very happy with colestipol, she takes 2 pills every morning and 1 pill every evening which has resolved the diarrhea.? She rarely has to push a little bit, usually has some gas then.? She does not have any drainage or mucus from the rectum.? She has noted a very small amount of red blood that seems to be due to hemorrhoids. She has a diagnosis of IBS diarrhea.? She takes omeprazole which is very effective for heartburn. She has chronic diarrhea which is much improved on colestipol prescribed by primary care.? Last EGD and colonoscopy 09/2018--small hiatal hernia, gastritis, normal colon/ileum She reports bladder prolapse, tried a pessary but did not like it.? She has urinary incontinence.? She sees urologist Dr Rousseau.? She does not have any vaginal pressure or pain.? She does not know if she has a rectocele.? Remote history of hysterectomy and bladder repair. 05/02/22 CT/Abdomen/Pelvis WITH Contrast IMPRESSION:? (NOT LISTED IN ORDER OF SIGNIFICANCE) 7 mm indeterminate lesion of the superior anterior left kidney. Series 2 image 23.? This is 54 HOU[place]FIELD units. 7 mm indeterminate lesion of the anterior lateral left kidney. Series 2 image 37.? ACR White Paper guidelines (Marya, et al. JACR 2018; 15(2):264-273) recommend MRI or CT without and with intravenous contrast. ? 23 mm hypodense lesion in the inferior right lobe of the liver.? Series 2 image 50. ? ACR White Paper guidelines (Emelia, et al. JACR 2017; 14(11):0954-3832.) suggest no follow-up is necessary. Other findings as above. multiple colonic diverticula ROS Const Constitutional: Positive for weakness; No fatigue ENT ENT: No difficulty swallowing Gastro GI: Positive for abdominal pain, bloating, change in bowel habits, constipation and excessive flatus; No belching, change in stool character, coffee ground emesis, cramping, diarrhea, heartburn, difficulty swallowing, feeling full early, incontinent of stools, Vomiting blood/hematemesis, Blood in stool, loose stools, Black,tarry stools, nausea/dyspepsia, pain with swallowing, vomiting or other Musc Musculoskeletal: Positive for abnormal gait, joint pain, joint swelling, muscle cramps, muscle weakness, stiffness and Arthritis Skin Skin: No yellowing of the eye or itchy eyes Neuro Neurology: Positive for abnormal gait, dizziness, weakness and Increased tone in limbs Psych Psychiatric: Positive for anxiety and Positive for depression Endo Endocrine: No fatigue Aller/Imm Allergy/Immunologic: No itchy eyes Babak/Lymp Hematologic/Lymphatic: Positive for easy bruising; No easy bleeding Exam Const General: cooperative, healthy appearing and comfortable Orientation: alert, awake and oriented x3 Quality Reporting Tobacco Screening ([facility] 138) Smoking Status: Never smoker Assessment and Plan Assessment and Plan (1) Rectal pain, chronic: ?Status:?Acute ?Plan: 86 yr old female with rectal discomfort for more than one year, exacerbated by activity (eg sweeping out her garage), not relieved with 3 wks of HC rectal suppositories Stool tests for infection and inflammation Will schedule colonoscopy for further evaluation, f/u 2 wks after (2) Chronic diarrhea: ?Status:?Chronic ?Plan: Stool tests as above Continue colestipol as prescribed by primary care ? ? ? Orders: Orders OVA+PARA w/Giardia EIA [id number] Today G89.29 - Other chronic pain, K52.9 - Noninfective gastroenteritis and colitis, unspecified, K62.89 - Other specified diseases of anus and rectum ? ENTERIC PATHOGEN PANEL STOOL Today G89.29 - Other chronic pain, K52.9 - Noninfective gastroenteritis and colitis, unspecified, K58.9 - Irritable bowel syndrome without diarrhea, K62.89 - Other specified diseases of anus and rectum, R10.812 - Left upper quadrant abdominal tenderness ? Stool Lactoferrin/WBC Today G89.29 - Other chronic pain, K52.9 - Noninfective gastroenteritis and colitis, unspecified, K58.9 - Irritable bowel syndrome without diarrhea, K62.89 - Other specified diseases of anus and rectum ? CDIFF (PCR) Today G89.29 - Other chronic pain, K52.9 - Noninfective gastroenteritis and colitis, unspecified, K62.89 - Other specified diseases of anus and rectum ? Calprotectin, Stool Today G89.29 - Other chronic pain, K52.9 - Noninfective gastroenteritis and colitis, unspecified, K62.89 - Other specified diseases of anus and rectum ? I have examined the patient and the H&P has been reviewed. There are no clinical changes since date of exam.
--- NOTE | 2022-08-03 10:30 | COLBX_PTH ---
PATIENT: MAR NAQVI LOC: [facility] U#:[id number] AGE/SX: 86/F ROOM: RE08/03/[address]: Dr. Grzegorz Anton DO : 1935 BED: DIS: 08/03/2022 SPEC #: [id number] RECD: 08/03/22 14:30 STATUS: MABEL SHAD #: [id number] NATALIA: 08/03/22 10:[address]: Grzegorz Anton DEPT: SURGICAL PATHOLOGY RECD BY: Linette Ku ENTERED: 08/04/22 08:56 SP TYPE: COLON BX OTHR DR: Sasha Jay, INCOME TAX EXPERT-C Tissues: A - COLON BIOPSY B - Ileum, NOS C - COLON BIOPSY Procedures: Surgery Specimen Level IV HEADER OPERATION: Colonoscopy, biopsy, ink injection (MAC) PRE-OP DIAGNOSIS: Rectal pain, chronic diarrhea TISSUE SUBMITTED: A ? Hepatic flexure polyp, B ? Terminal ileum biopsy, C ? Random colon biopsy MICROSCOPIC DIAGNOSIS A. Colonic polyp at hepatic flexure, biopsy: Fragments of tubulovillous adenoma. B. Terminal ileum, biopsy: No pathologic change. C. Colon, random biopsy: No pathologic change. AM:den 08/05/2022 MICROSCOPIC DESCRIPTION Slides are reviewed. GROSS DESCRIPTION A - Received in fixative is one container labeled with the patient's name and designated hepatic flexure polyp. The specimen consists of multiple irregular fragments of light burgos soft tissue that in aggregate measure 1.5 x 0.6 x 0.1 cm. The specimen is totally submitted in one cassette. B - Received in fixative is one container labeled with the patient's name and designated terminal ileum. The specimen consists of two irregular fragments of light burgos soft tissue that in aggregate measure 0.7 x 0.3 x 0.1 cm. The specimen is totally submitted in one cassette. C - Received in fixative is one container labeled with the patient's name and designated random colon. The specimen consists of one irregular fragment of light burgos soft tissue that measures 0.5 x 0.5 x 0.1 cm. The specimen is totally submitted in one cassette. / AM:den 08/04/2022 TC:5 CPT: 96797 x3
--- NOTE | 2022-08-03 11:32 | OP.CCLET_ITS ---
08/03/2022 Jb Negrete Re : Colonoscopy procedure for Gayatri Oseguera Dear Pierre This procedure was performed on Wednesday, August 03, 2022. My impressions and recommendations are as follows: Impressions : - One 25 mm polyp at the hepatic flexure. Biopsied. Tattooed. - Congested mucosa in the sigmoid colon and at the hepatic flexure. Biopsied. - The examined portion of the ileum was normal. Biopsied. Recommendations : - Discharge patient to home. - Resume previous diet. - Continue present medications. - Await pathology results. - Repeat colonoscopy in 2 months for retreatment. My findings are described in the full procedure note, which is enclosed. If I can be of further assistance, please feel free to contact me at . Sincerely, Grzegorz Anton, 08/03/2022 11:32:04 AM This report has been signed electronically.
--- NOTE | 2022-08-03 11:32 | OP.COLON_ITS ---
Patient Name: Gayatri Oseguera Procedure Date: 08/03/2022 10:45 AM Date of : 1935 Age: 86 Procedure: Colonoscopy Indications: Clinically significant diarrhea of unexplained origin Providers: Grzegorz Anton DO Medicines: Monitored Anesthesia Care Patient Profile: This is an 86 year old female. Refer to note in patient chart for documentation of history and physical. Last Colonoscopy: more than 10 years ago. Complications: No immediate complications. Procedure: Pre-Anesthesia Assessment: - Prior to the procedure, a History and Physical was performed, and patient medications and allergies were reviewed. The patient is competent. The risks and benefits of the procedure and the sedation options and risks were discussed with the patient. All questions were answered and informed consent was obtained. Patient identification and proposed procedure were verified by the physician in the pre-procedure area. Mental Status Examination: alert and oriented. Airway Examination: normal oropharyngeal airway and neck mobility. Respiratory Examination: clear to auscultation. CV Examination: normal. Prophylactic Antibiotics: The patient does not require prophylactic antibiotics. Prior Anticoagulants: The patient has taken no previous anticoagulant or antiplatelet agents. ASA Grade Assessment: II - A patient with mild systemic disease. After reviewing the risks and benefits, the patient was deemed in satisfactory condition to undergo the procedure. The anesthesia plan was to use monitored anesthesia care (MAC). Immediately prior to administration of medications, the patient was re-assessed for adequacy to receive sedatives. The heart rate, respiratory rate, oxygen saturations, blood pressure, adequacy of pulmonary ventilation, and response to care were monitored throughout the procedure. The physical status of the patient was re-assessed after the procedure. After I obtained informed consent, the scope was passed under direct vision. Throughout the procedure, the patient's blood pressure, pulse, and oxygen saturations were monitored continuously. The pediatric colonoscope was introduced through the anus and advanced to the terminal ileum. The colonoscopy was performed without difficulty. The patient tolerated the procedure well. The quality of the bowel preparation was good. Scope In: 11:02:25 AM Scope Withdrawal Time 0 hours 11 minutes 58 seconds Scope Out: 11:23:11 AM Total Procedure Duration Time 0 hours 20 minutes 46 seconds Findings: The perianal and digital rectal examinations were normal. A 25 mm polyp was found in the hepatic flexure. The polyp was flat. Biopsies were taken with a cold forceps for histology. Verification of patient identification for the specimen was done. Area was tattooed with an injection of 1 mL of Mariaelena ink. An area of mildly congested mucosa was found in the sigmoid colon and at the hepatic flexure. Biopsies were taken with a cold forceps for histology. Verification of patient identification for the specimen was done. Estimated blood loss was minimal. The terminal ileum appeared normal. Biopsies were taken with a cold forceps for histology. Verification of patient identification for the specimen was done. Estimated blood loss was minimal. Impression: - One 25 mm polyp at the hepatic flexure. Biopsied. Tattooed. - Congested mucosa in the sigmoid colon and at the hepatic flexure. Biopsied. - The examined portion of the ileum was normal. Biopsied. Recommendation: - Discharge patient to home. - Resume previous diet. - Continue present medications. - Await pathology results. - Repeat colonoscopy in 2 months for retreatment. Procedure Code(s): --- Professional --- 88852, Colonoscopy, flexible; with directed submucosal injection(s), any substance 66694, Colonoscopy, flexible; with biopsy, single or multiple CPT copyright 2017 [employer]. All rights reserved. The codes documented in this report are preliminary and upon solar sales advisor review may be revised to meet current compliance requirements. Grzegorz Anton DO 08/03/2022 11:32:04 AM This report has been signed electronically. Number of Addenda: 0 Note Initiated On: 08/03/2022 10:45 AM
== END 2022-08-03 12:33 | disposition home or self-care (01) ==
LOC: EN 09:18 → AC 09:21
PROVIDERS: PCP Nurse Practitioner Family; Referring Provider Nurse Practitioner Family; Visit Provider Internal Medicine Gastroenterology
PROC: 0DJD8ZZ Inspection of Lower Intestinal Tract, Via Natural or Artificial Opening Endoscopic (ICD-10-PCS; CPT 45378; principal; 2022-08-03 10:25)
DX: D12.3 Benign neoplasm of transverse colon (principal); K58.0 Irritable bowel syndrome with diarrhea; K52.9 Noninfective gastroenteritis and colitis, unspecified; K63.89 Other specified diseases of intestine; G89.29 Other chronic pain; Z79.899 Other long term (current) drug therapy
CPT/HCPCS: 45380; 45381; 88305; J7120; A4648; J2405

== ENCOUNTER → 2023-01-07 | Outpatient (CLI) | payer MEDICARE, SELFPAY | END | disposition home or self-care (01) | PROVIDERS: PCP Nurse Practitioner Family; Referring Provider Nurse Practitioner Family; Visit Provider Nurse Practitioner Family | DX: J02.9 Acute pharyngitis, unspecified (principal) | CPT/HCPCS: 87070 ==

== ENCOUNTER → 2025-01-22 | Outpatient (CLI) | payer MEDICARE, SELFPAY ==
--- NOTE | 2025-01-22 13:00 | VDLE_ITS ---
Reason For Study Reason For Study: Swelling RIGHT LEFT CFV is compressible, spontaneous, phasic, competent GSV is normal. and demonstrates normal augmentation. CFV is compressible, spontaneous, phasic, competent, Procedure and demonstrates normal augmentation. This is a venous duplex using B-mode, color flow and FV is compressible, spontaneous, phasic, competent spectral Doppler. and demonstrates normal augmentation. Exam performed in department. POP V is compressible, spontaneous, phasic, competent and demonstrates normal augmentation. T/P Trunk is compressible. PTV is compressible. LT PerV is compressible. VL/Venous Duplex US, Unilateral Interpretation Summary Deep veins of the left lower extremity are patent and compressible segmentally. There is no evidence of left lower extremity deep vein thrombosis. The left great saphenous vein appears patent an d compressible segmentally. Ordering Physician: Obi Buchanan Referring Physician: Sasha Jay NP Performed By: Karyn Akins RVT
--- NOTE | 2025-01-22 13:00 | ECHOD_ITS ---
Reason For Study Reason For Study: SHORTNESS OF BREATH Procedure This was a 2D Doppler, Color Flow transthoracic echocardiogram. Exam performed in department. Left Ventricle Normal LV size. Left ventricular systolic function is normal. Stage 1 diastolic dysfunction. The left ventricular ejection fraction is 65 %. No regional wall motion abnormalities noted. Right Ventricle Normal RV size. Normal systolic function. Atria Normal left atrium. Normal right atrium. Tricuspid Valve Normal tricuspid valve. Mild (1+) tricuspid valve insufficiency. Pulmonary artery systolic pressure is 35 mmHg. Pulmonic Valve Normal pulmonic valve. Great Vessels Normal sized aortic root. The pulmonary artery is normal size. Inferior vena cava collapse with respiration. Pericardium/Pleural No pericardial effusion. MMode/2D Measurements & Calculations LVIDd: 4.5 cm IVSd: 1.0 cm Ao root diam: 3.1 cm LVIDs: 3.2 cm LVPWd: 1.1 cm RVDd: 3.3 cm FS: 28.6 % LAV(MOD-bp): 49.7 ml SV(MOD-sp4): 39.7 ml LVAd ap4: 20.7 cm2 LAV(MOD-bp) Indexed: 31.6 ml/m2 LVLd ap4: 6.4 cm SI(MOD-sp4): 25.2 ml/m2 LAV(MOD-sp2): 40.3 ml EDV(MOD-sp4): 57.3 ml LAV(MOD-sp4): 57.9 ml EDV(sp4-el): 56.4 ml LVAs ap4: 10.1 cm2 LVLs ap4: 5.0 cm ESV(MOD-sp4): 17.7 ml ESV(sp4-el): 17.1 ml EF(MOD-sp4): 69.2 % EF(sp4-el): 69.7 % SV(sp4-el): 39.3 ml LA dimension(2D): 3.7 cm LA A4 area: 18.6 cm2 TAPSE: 2.3 cm RA A4 area: 11.6 cm2 Time Measurements MV dec time: 0.22 sec Doppler Measurements & Calculations MV E max bryce: 74.5 cm/sec Lat Peak E' Bryce: 5.2 cm/sec Med Peak E' Bryce: 6.6 cm/sec MV A max bryce: 104.4 cm/sec E/E' lat: 14.4 E/E' med: 11.4 MV E/A: 0.71 MV V2 max: 116.5 cm/sec MV P1/2t max bryce: 86.3 cm/sec Ao V2 max: 129.4 cm/sec MV max P.4 mmHg MV P1/2t: 69.1 msec Ao max P.7 mmHg MV V2 mean: 62.5 cm/sec Ao V2 mean: 88.3 cm/sec MV mean P.8 mmHg MV dec slope: 365.7 cm/sec2 Ao mean P.4 mmHg MV V2 VTI: 29.3 cm MVA(P1/2t): 3.2 cm2 Ao V2 VTI: 26.7 cm AV (velocity ratio): 0.77 LV V1 max: 97.2 cm/sec PA V2 max: 88.9 cm/sec TR max bryce: 279.6 cm/sec LV V1 max P.8 mmHg PA V2 mean: 65.7 cm/sec TR max P.3 mmHg LV V1 mean P.9 mmHg LV V1 mean: 66.0 cm/sec LV V1 VTI: 20.5 cm ECHO/Echo Complete Interpretation Summary Normal LV size. Left ventricular systolic function is normal. Stage 1 diastolic dysfunction. The left ventricular ejection fraction is 65 %. Pulmonary artery systolic pressure is 35 mmHg. Ordering Physician: Obi Buchanan Referring Physician: daniela Jay Performed By: Caitie Neely, GUICS, RVT
== END | disposition home or self-care (01) ==
LOC: CVS 12:58
PROVIDERS: PCP Nurse Practitioner Family; Referring Provider Student in an Organized Health Care Education/Training Program; Visit Provider Student in an Organized Health Care Education/Training Program
DX: R60.0 Localized edema (principal); R06.02 Shortness of breath; I34.0 Nonrheumatic mitral (valve) insufficiency
CPT/HCPCS: 93306; 93971

== ENCOUNTER → 2025-09-05 | Outpatient (CLI) | payer MEDICARE, SELFPAY | END | disposition home or self-care (01) | LOC: LAB 10:08 → LABSPEC 10:08 | PROVIDERS: PCP Nurse Practitioner Family; Referring Provider Physician Assistant Surgical; Visit Provider Physician Assistant Surgical | DX: R82.90 Unspecified abnormal findings in urine (principal) | CPT/HCPCS: 87077; 87086; 87088; 87186 ==